=== PATIENT | female | born 1935 | race Caucasian/White ===

== ENCOUNTER 2019-09-18 08:28 | Inpatient (IN) | payer MEDICARE ==
[~2019-09-18] VITALS: Ht 160 cm; Wt 86.2 kg
[2019-09-18] VITALS (11 sets, daily range): BP systolic 99–186; BP diastolic 46–105
[~2019-09-18 08:28] MED LIST: CHOLESTEROL PILL; IBUP-15; LISI1TAB32 PO; LISINOPRIL; LOVA20TA2 PO; LRT10T
[2019-09-18] MEDS ORDERED: RX-ALBUTEROL INHALER (VENTOLIN HFA) 18 GM IH STA (08:54)
[2019-09-18] MEDS ORDERED: RX-ALBUTEROL INHALER 8 GM HFA (VENTOLIN) IH ONE (08:57)
[2019-09-18 09:22] LABS: BASOPHILS % (AUTO) 0 % (0-10); EOSINOPHILS % (AUTO) 0 % (0-10); HEMATOCRIT 40 % (35-52); HEMOGLOBIN 12.6 G/DL (11.5-16.0); LYMPHOCYTES # (AUTO) 1.2 X 10^3 (1.0-4.0); LYMPHOCYTES % (AUTO) 17 % (12-44); MEAN CORPUSCULAR HEMOGLOBIN 29 PG (25-34); MEAN CORPUSCULAR HGB CONC 32 G/DL (32-36); MEAN CORPUSCULAR VOLUME 91 FL (80-99); MEAN PLATELET VOLUME 9.6 FL (7.4-10.4); MONOCYTES # (AUTO) 0.4 X 10^3 (0.0-1.0); MONOCYTES % (AUTO) 6 % (0-12); NEUTROPHILS # (AUTO) 5.4 X 10^3 (1.8-7.8); NEUTROPHILS % (AUTO) 76 % (42-75); PLATELET COUNT 274 10^3/uL (130-400)
--- NOTE | 2019-09-18 09:29 | Diagnostic Imaging Report ---
INDICATION: Weakness and shortness of air. TIME OF EXAM: 9:26 AM Correlation is made with prior chest 03/13/2010. The heart is enlarged. There are changes of median sternotomy and CABG. Central vascularity is prominent. Interstitial markings are prominent consistent with congestive failure. No significant effusion is seen. There is no pneumothorax. There are some patchy infiltrates in the lung bases. IMPRESSION: Findings most suggestive of congestive failure. Dictated by: Dictated on workstation # [id number]
[2019-09-18] MEDS ORDERED: LORazepam INJ 2 MG/ML (ATIVAN) VIAL ONE (09:34)
[2019-09-18 09:37] LABS: FIBRIN DEGRADATION PRODUCTS 0.99 UG/ML (0.00-0.49); INR 1.1 (0.8-1.4); PROTHROMBIN TIME PATIENT 14.7 SEC (12.2-14.7)
[2019-09-18 09:38] LABS: ALBUMIN 3.8 GM/DL (3.2-4.5); POTASSIUM 4.2 MMOL/L (3.6-5.0)
[2019-09-18 09:39] LABS: CALCIUM 8.7 MG/DL (8.5-10.1)
[2019-09-18 09:40] LABS: TOTAL PROTEIN 6.9 GM/DL (6.4-8.2)
[2019-09-18 09:42] LABS: BILIRUBIN,TOTAL 0.4 MG/DL (0.1-1.0)
[2019-09-18 09:42] LABS: BILIRUBIN,URINE NEGATIVE (NEGATIVE); CLARITY,URINE CLEAR; COLOR,URINE YELLOW; GLUCOSE, URINE (UA) NEGATIVE (NEGATIVE); KETONES,URINE NEGATIVE (NEGATIVE); LEUKOCYTE ESTERASE ,URINE NEGATIVE (NEGATIVE); NITRITE,URINE NEGATIVE (NEGATIVE); PROTEIN,URINE 1+ (NEGATIVE)
[2019-09-18 09:43] LABS: ERYTHROCYTE SEDIMENTATION RATE 23 MM/HR (0-30)
--- NOTE | 2019-09-18 09:43 | ED General ---
General Stated Complaint: SOB WEAKNESS Source of Information: Patient Exam Limitations: No Limitations History of Present Illness Date Seen by Provider: Sep 18, 2019 Time Seen by Provider: 08:40 Initial Comments Here with report of shortness of breath, headache, body aches, stomach upset and weakness. Onset earlier this week, a few days after she had gone to [place] to eat dinner. Has had a tickle in her throat as well. Denies fevers. Arrives significantly dyspneic. Arrives via EMS with COVID-19 concerns secondary to respiratory distress. Patient denies vomiting or diarrhea. Denies dysuria. Timing/Duration: 2-3 Days, Getting Worse Severity: Moderate, Severe Associated Systoms: No Chest Pain; Cough; No Fever/Chills; Headaches, Malaise, Shortness of Air, Weakness Allergies and Home Medications Allergies Coded Allergies: Penicillins (Unverified Allergy, Mild, 12/18/08) Home Medications Lisinopril/Hydrochlorothiazide 1 Each Tablet, 1 TAB PO DAILY, (Reported) Lovastatin 20 Mg Tablet, 1 TAB PO HS, (Reported) Patient Home Medication List Home Medication List Reviewed: Yes Review of Systems Review of Systems Constitutional: see HPI; No chills, No fever; malaise, weakness EENTM: nose congestion, throat pain Respiratory: cough, short of breath Cardiovascular: No chest pain; edema; No palpitations Gastrointestinal: see HPI Genitourinary: no symptoms reported Musculoskeletal: muscle pain Skin: no symptoms reported Psychiatric/Neurological: No Symptoms Reported All Other Systems Reviewed Negative Unless Noted: Yes Past Ituvhts-Yzwfyg-Bsqbyn Hx Past Med/Social Hx: Reviewed Nursing Past Med/Soc Hx Patient Social History Alcohol Use: Denies Use Recreational Drug Use: No Smoking Status: Never a Smoker Past Medical History Surgeries: Yes CABG, Hysterectomy Respiratory: No Cardiac: Yes Coronary Artery Disease, Hypertension Neurological: No Reproductive Disorders: No Genitourinary: No Gastrointestinal: No Musculoskeletal: No Endocrine: No Cancer: Yes Ovarian Family Medical History Reviewed Nursing Family Hx No Pertinent Family Hx Physical Exam-Suspected Sepsis Physical Exam Vital Signs Vital Signs - First Documented 09/18/19 08:32 Temp 36.6 Pulse 88 Resp 14 B/P (MAP) 186/78 (114) Pulse Ox 94 O2 Delivery Nasal Cannula O2 Flow Rate 4.00 Capillary Refill : Height, Weight, BMI Height: '" Weight: lbs. oz. kg; BMI Method: General Appearance: WD/WN, Moderate Distress HEENT: PERRL/EOMI, Pharynx Normal Neck: Non Tender, Supple Respiratory: Crackles (Bilateral to mid lungs do) Cardiovascular: No Murmur, Tachycardia Gastrointestinal: Non Tender, Soft Back: Normal Inspection, No CVA Tenderness, No Vertebral Tenderness Extremity: Normal Range of Motion, Non Tender, Pedal Edema (3+ to level of knee bilateral) Neurologic/Psychiatric: Alert, Oriented x3 Skin: normal color, warm/dry Focused Exam Lactate Level 09/18/19 09:08: Lactic Acid Level 0.81 Lactic Acid Level Laboratory Tests Test 09/18/19 09:08 Lactic Acid Level 0.81 MMOL/L (0.50-2.00) Progress/Results/Core Measures Suspected Sepsis SIRS Temperature: Pulse: Respiratory Rate: Laboratory Tests 09/18/19 09:08: White Blood Count 7.0 Blood Pressure / Mean: 09/18/19 09:08: Lactic Acid Level 0.81 Laboratory Tests 09/18/19 09:08: Creatinine 1.07, INR Comment 1.1, Platelet Count 274, Total Bilirubin 0.4 Results/Orders Lab Results Laboratory Tests Test 09/18/19 09:08 09/18/19 09:24 Range/Units White Blood Count 7.0 4.3-11.0 10^3/uL Red Blood Count 4.36 4.35-5.85 10^6/uL Hemoglobin 12.6 11.5-16.0 G/DL Hematocrit 40 35-52 % Mean Corpuscular Volume 91 80-99 FL Mean Corpuscular Hemoglobin 29 25-34 PG Mean Corpuscular Hemoglobin Concent 32 32-36 G/DL Red Cell Distribution Width 14.0 10.0-14.5 % Platelet Count 274 130-400 10^3/uL Mean Platelet Volume 9.6 7.4-10.4 FL Neutrophils (%) (Auto) 76 H 42-75 % Lymphocytes (%) (Auto) 17 12-44 % Monocytes (%) (Auto) 6 0-12 % Eosinophils (%) (Auto) 0 0-10 % Basophils (%) (Auto) 0 0-10 % Neutrophils # (Auto) 5.4 1.8-7.8 X 10^3 Lymphocytes # (Auto) 1.2 1.0-4.0 X 10^3 Monocytes # (Auto) 0.4 0.0-1.0 X 10^3 Eosinophils # (Auto) 0.0 0.0-0.3 10^3/uL Basophils # (Auto) 0.0 0.0-0.1 10^3/uL Erythrocyte Sedimentation Rate 23 0-30 MM/HR Prothrombin Time 14.7 12.2-14.7 SEC INR Comment 1.1 0.8-1.4 Activated Partial Thromboplast Time 34 24-35 SEC D-Dimer 0.99 H 0.00-0.49 UG/ML Sodium Level 143 135-145 MMOL/L Potassium Level 4.2 3.6-5.0 MMOL/L Chloride Level 107 98-107 MMOL/L Carbon Dioxide Level 26 21-32 MMOL/L Anion Gap 10 5-14 MMOL/L Blood Urea Nitrogen 30 H 7-18 MG/DL Creatinine 1.07 0.60-1.30 MG/DL Estimat Glomerular Filtration Rate 49 BUN/Creatinine Ratio 28 Glucose Level 174 H 70-105 MG/DL Lactic Acid Level 0.81 0.50-2.00 MMOL/L Calcium Level 8.7 8.5-10.1 MG/DL Corrected Calcium 8.9 8.5-10.1 MG/DL Total Bilirubin 0.4 0.1-1.0 MG/DL Aspartate Amino Transf (AST/SGOT) 16 5-34 U/L Alanine Aminotransferase (ALT/SGPT) 16 0-55 U/L Alkaline Phosphatase 54 40-136 U/L Lactate Dehydrogenase 176 125-220 U/L Troponin I 0.038 H <0.028 NG/ML C-Reactive Protein High Sensitivity 0.97 H 0.00-0.50 MG/DL B-Type Natriuretic Peptide 691.2 H <100.0 PG/ML Total Protein 6.9 6.4-8.2 GM/DL Albumin 3.8 3.2-4.5 GM/DL Procalcitonin 0.04 <0.10 NG/ML Urine Color YELLOW Urine Clarity CLEAR Urine pH 5.0 5-9 Urine Specific [place] 1.025 H 1.016-1.022 Urine Protein 1+ H NEGATIVE Urine Glucose (UA) NEGATIVE NEGATIVE Urine Ketones NEGATIVE NEGATIVE Urine Nitrite NEGATIVE NEGATIVE Urine Bilirubin NEGATIVE NEGATIVE Urine Urobilinogen 0.2 < = 1.0 MG/DL Urine Leukocyte Esterase NEGATIVE NEGATIVE Urine RBC (Auto) NEGATIVE NEGATIVE Urine RBC 2-5 H /HPF Urine WBC RARE /HPF Urine Squamous Epithelial Cells 2-5 /HPF Urine Crystals NONE /LPF Urine Bacteria FEW H /HPF Urine Casts NONE /LPF Urine Mucus NEGATIVE /LPF Urine Culture Indicated CULTURE PENDING My Orders Orders - GT COMBS MD Cbc With Automated Diff (09/18/19 08:54) Comprehensive Metabolic Panel (09/18/19 08:54) Blood Culture (09/18/19 08:54) Sputum Culture (09/18/19 08:54) Urinalysis (09/18/19 08:54) Urine Culture (09/18/19 08:54) Protime With Inr (09/18/19 08:54) Partial Thromboplastin Time (09/18/19 08:54) Chest 1 View, Ap/Pa Only (09/18/19 08:54) Ed Iv/Invasive Line Start (09/18/19 08:54) Ekg Tracing (09/18/19 08:54) Troponin I (09/18/19 08:54) Vital Signs Adult Sepsis Patie Q15M (09/18/19 08:54) O2 (09/18/19 08:54) Remove Rings In Anticipation O (09/18/19 08:54) Lactic Acid Analyzer (09/18/19 08:54) Fibrin Degradation Products (09/18/19 08:54) Procalcitonin (Pct) (09/18/19 08:54) Hs C Reactive Protein (09/18/19 08:54) Erythrocyte Sedimentation Rate (09/18/19 08:54) LDH (09/18/19 08:54) Coronavirus Sars-Cov-2 So 2018 (09/18/19 08:54) Rx-Albuterol Inhaler (Rx-Ventolin Hfa) (09/18/19 08:54) Rx-Albuterol Inhaler (Rx-Ventolin Hfa In (09/18/19 08:57) Lorazepam Injection (Ativan Injection) (09/18/19 09:45) Lorazepam Injection (Ativan Injection) (09/18/19 09:34) BNP (09/18/19 09:38) Catheter(Urinary) Insert & Ass 03,15 (09/18/19 09:38) Furosemide Injection (Lasix Injection) (09/18/19 09:45) Medications Given in ED Current Medications Medications Dose Ordered Sig/Nancie Route Start Time Stop Time Status Last Admin Dose Admin Furosemide 40 mg ONCE ONCE IVP 09/18/19 09:45 09/18/19 09:46 DC 09/18/19 10:20 40 MG Lorazepam 0.5 mg ONCE ONCE IVP 09/18/19 09:45 09/18/19 09:46 DC 09/18/19 09:39 0.5 MG Vital Signs/I&O 09/18/19 09/18/19 08:32 10:34 Temp 36.6 Pulse 88 83 Resp 14 16 B/P (MAP) 186/78 (114) 129/59 (82) Pulse Ox 94 100 O2 Delivery Nasal Cannula NIV Bilevel O2 Flow Rate 4.00 Capillary Refill : Progress Note : Progress Note Seen and evaluated. IV, labs, EKG and chest x-ray ordered. Cultures and lactic acid ordered. COVID-19 screening swab ordered. Patient placed on oxygen. She is not normally on oxygen but O2 sats were in the 70s and 80s. Increased to 5 L via nasal cannula. Monitor patient. 0940: Patient having worsening shortness of breath. Ultimately we initiated BiPAP with exhale circuit filter. Initiated at 12/6 and 100% due to significant shortness of breath. Ativan 0.5 mg IV initiated due to anxiety secondary to BiPAP. We will initiate Renae catheter due to immobility and in extremis. Patient will get Lasix 40 mg IV for what appears to be significant heart failure. Monitor patient. 1100: Patient is doing much better now after initiation of BiPAP. We have titrated FiO2 down to 50% to maintain sats greater than 92% and she is much less dyspneic. I have discussed the case with Dr. Martinez and she accepts patient for admission, inpatient s marquis. I consulted Dr. Parra and he will see the patient in consult and agrees with plan. Patient agrees with admission. She requests full CODE STATUS at this point unless it's not to do any good. We will put her as full code. Diagnostic Imaging Diagonstic Imaging: Xray Plain Films/CT/US/NM/MRI: chest Comments [facility]. [place], [place] NAME: BEV RODRIGUEZ [facility] REC#: [id number] PT STATUS: REG ER : 1935 PHYSICIAN: GT COMBS MD ADMIT DATE: 09/18/19/ER Draft Date of Exam:09/18/19 CHEST 1 VIEW, AP/PA ONLY INDICATION: Weakness and shortness of air. TIME OF EXAM: 9:26 AM Correlation is made with prior chest 03/13/2010. The heart is enlarged. There are changes of median sternotomy and CABG. Central vascularity is prominent. Interstitial markings are prominent consistent with congestive failure. No significant effusion is seen. There is no pneumothorax. There are some patchy infiltrates in the lung bases. IMPRESSION: Findings most suggestive of congestive failure. Dictated on workstation # [id number] Dict: 09/18/19926 Trans: 09/18/19928 CVB [id number] Interpreted by: ALEM CARNES MD Electronically signed by: Reviewed: Reviewed by Me Departure Communication (Admissions) Time/Spoke to Admitting Phy: 10:55 Time/Spoke to Consulting Phy: 11:00 Impression Primary Impression: Acute heart failure Qualified Codes: I50.9 - Heart failure, unspecified Additional Impression: COVID-19 evaluation Disposition: ADMITTED INPATIENT Condition: Stable Admissions Decision to Admit Reason: Admit from ER (General) Decision to Admit/Date: Sep 18, 2019 Time/Decision to Admit Time: 10:55 Departure-Patient Inst. Referrals: KEILA MARTINEZ DO (PCP/Family) Primary Care Physician GT COMBS MD Sep 18, 2019 09:43
[2019-09-18 09:44] LABS: CREATININE SERUM 1.07 MG/DL (0.60-1.30)
[2019-09-18] MEDS ORDERED: FUROSEMIDE 40 MG/4 ML INJ (LASIX) IVP ONE (09:45)
[2019-09-18] MEDS ORDERED: LORazepam INJ 2 MG/ML (ATIVAN) VIAL IVP ONE (09:45)
[2019-09-18 09:49] LABS: BACTERIA,URINE FEW /HPF; WBC,URINE RARE /HPF
--- NOTE | 2019-09-18 10:15 | NUR ---
Spoke with pts daughter in law. Updates given and questions answered. Rn will call daughter in law back with a room number. Visistation policy regarding PUI's was explained to daughter in law.
--- NOTE | 2019-09-18 11:07 | NUR ---
Spoke with pts son, update given and questions answered about admission. Phone number to the icu given at this time.
--- NOTE | 2019-09-18 11:35 | NUR ---
BEV RODRIGUEZ admitted to room CU5-1, with an admitting diagnosis of HEART FAILURE AND R/O COVID 19, on 09/18/19 from ER via CART, accompanied by STAFF.BEV RODRIGUEZ introduced to surroundings, call light, bed controls, phone, TV, temperature control, lights, meal times, smoking policy, visitor policy, side rail policy, bathrooms and showers. Patient Rights given to patient in the handbook. BEV RODRIGUEZ verbalizes understanding that [facility] is not responsible for the loss or damage to any personal effects or valuables that are kept in the patients posession during their hospitalization. The following Patient Care Plans were discussed with the PT: Discharge Planning, IMPAIRED GAS EXCHANGE,ACTIVITY INTOLERANCE, and FLUID VOLUME EXCESS. BEV RODRIGUEZ verbalizes understanding of Interdisciplinary Patient Education. Patient and family were informed about the Rapid Response Team and its purpose.
[2019-09-18 11:59] LABS: ABG BASE EXCESS 3.2 MMOL/L (-2.5-2.5); ABG OXYGEN SATURATION 98 % (94-100); ABG PCO2 50 MMHG (35-45); ABG PH 7.37 (7.37-7.43); ABG PO2 88 MMHG (79-93); ALLENS TEST POSITIVE; INSPIRED O2 50% BIPAP; PATIENT TEMP 36; VENTILATOR NO
--- OUTSIDE RECORDS SUMMARY | 2019-09-18 12:39 | XMS REPORT | Clinical Summary ---
Author Author UserLisseth Organization [facility] Address Unknown Phone Unavailable Allergies, Adverse Reactions, Alerts Allergy Name Reaction Description Start Date Severity Status Pr ovider PENICILLIN Respiratory problems, e.g., wheezing Critical Active Telma Yung Conditions or Problems Problem Name Problem Code Onset Date Status Entry Date Provider Comment Standard Description Annotate UPPER RESPIRATORY INFECTION (URI) 465.9 Resolved 20 06/09/14 Telma Yung Acute upper respiratory infections of un specified site HYPERTENSION, BENIGN ESSENTIAL, UNCONTROLLED 401.1 Ac tive Telma Yung Benign essential hypertension OBESITY 278.00 Resolved Telma Yung Obesity, unspecified SKIN TAG 701.9 Resolved Telma uYng Unspecified hypertrophic and atrophic conditions of skin Right face, L subclavian area POSTMENOPAUSAL STATUS 627.2 Active Telma lozano Symptomatic menopausal or female climacteric states ACTINIC KERATOSIS, 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.3 Resolved Telma Yung Personal history of diseases of skin and subcutaneous tissue per old chart OSTEOARTHRITIS 715.90 Active Telma Yung Osteoarthrosis, unspecified whether generalized or localized, involving unspecified site Per old chart, b/l knees SKIN LESION, BENIGN 709.9 Resolved Telma Yung Unspecified disorder of skin and subcutaneous tissue DIZZINESS 780.4 Resolved Telma Yung Dizziness and giddiness HEMORRHOIDS 455.6 Resolved Telma Yung Unspecified hemorrhoids without mention of complication BACK PAIN 724.5 Resolved Telma Yung Backache, unspecified HIP PAIN 719.45 Resolved Telma Yung Pain in joint involving pelvic region and thigh left 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 M arthur Yung 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 HYPERCHOLESTEROLEMIA 272.0 Active Telma Yung Pure hypercholesterolemia SNORING 786.09 Resolved Telma Yung Other dyspnea and respiratory abnormality DYSURIA 788.1 Resolved Telma Yung Dysuria URINARY FREQUENCY 788.41 Resolved Telma yoster Urinary frequency CHEST PAIN 786.50 Resolved Telma Yung Unspecified chest pain CONTUSION, LEFT CHEST WALL 922.1 Resolved 8 Telma Yung Contusion of chest wall BRONCHITIS 490 Resolved Telma Yung Bronchitis, not specified as acute or chronic WHEEZING 786.07 Resolved Telma Yung Wheezing COUGH 786.2 Resolved Telma Yung Cough DERMATITIS, SCALP 692.9 Resolved Telma lozano Contact dermatitis and other eczema, unspecified cause PHARYNGITIS, ACUTE 462 Resolved Telma Yung Acute pharyngitis LYMPHADENOPATHY, REACTIVE 785.6 Resolved Telma Yung Enlargement of lymph nodes TONGUE DISORDER 529.9 Resolved Telma cornelius Unspecified condition of the tongue PHARYNGITIS, ACUTE 462 Resolved Telma uYng Acute pharyngitis HEADACHE 784.0 Resolved Telma Yung Headache DIZZINESS, CHRONIC 780.4 Resolved Telma Yung Dizziness and giddiness WEIGHT GAIN, ABNORMAL 783.1 Resolved Telma Yung Abnormal weight gain TORTICOLLIS 723.5 Resolved Telma Yung Torticollis, unspecified EDEMA LEG 782.3 Active Telma Yung Edema MUSCLE PAIN 729.1 Resolved Telma Yung Myalgia and myositis, unspecified PHARYNGITIS, ACUTE 462 Resolved Telma Yung Acute pharyngitis BRONCHITIS 490 Resolved Telma Yung Bronchitis, not specified as acute or chronic KNEE PAIN 719.46 Active Telma Yung Pain in joint involving lower leg SINUSITIS, SPHENOIDAL, ACUTE 461.3 Resolved Telma Yung Acute sphenoidal sinusitis DIABETES MELLITUS, NONINSULIN DEPENDENT (NIDDM) 250.02 Active Telma Yung Diabetes mellitus w ithout mention of complication, type II or unspecified type, uncontrolled NEVUS, ATYPICAL 216.9 Resolved Telma cornelius Benign neoplasm of skin, site unspecified ANEMIA NOS 285.9 Resolved Telma Yung Anemia, unspecified CORONARY ARTERY BYPASS GRAFT, THREE VESSEL, HX OF V45.81 2010 Active Telma Yung Postsurgical aortocoronary bypass status CORONARY ATHEROSCLEROSIS, [place] VESSEL 414.01 Active Telma Yung Coronary atherosclerosis of [place] yes[place] nary artery OSTEOPOROSIS 733.00 Resolved Telma Yung Osteoporosis, unspecified OSTEOPOROSIS NEC 733.09 Active Telma cornelius Other osteoporosis HEMATOCHEZIA 578.1 Resolved Telma Yung Blood in stool WEIGHT GAIN, ABNORMAL 783.1 Active Telma Jacob Abnormal weight gain BRONCHITIS, ACUTE 466.0 Active Telma Simpson rner Acute bronchitis Medication List Medication Instructions Start Date Stop Date Generic Name NDC Status Provider Patient Instruction ZOFRAN ODT 8 MG TBDP 1 PO Q6hrs prn nausea ONDA NSETRON 87029423390 No Longer Active Telma Yung ADVAIR DISKUS 100-50 MCG/DOSE MISC 1 puff BID 04/15 FLUTICASONE-SALMETEROL 97526665828 No Longer Active Telma Yung CEFDINIR 300 MG CAPS 1 PO BID CEFDINIR 0648674 0900 No Longer Active Telmahazel Yung METFORMIN HCL 500 MG TABS 1 PO every day METFOR MIN HCL 28679135455 No Longer Active Telmahazel Yung FLAX SEED OIL CAPS 1 PO daily FLAXSEED (LINSEED) CAPS 11 786393138 Active Telmahazel Yung HYDROCODONE-ACETAMINOPHEN 5-325 MG TABS 1 PO TID prn HYDROCODONE-ACETAMINOPHEN 34066112736 Active Telmahazel Yung VITAMIN D3 69284 UNIT CAPS 1 PO every other day CH OLECALCIFEROL 75742799347 Active Telmahazel Yung TOPROL XL 100 MG TAB CR 1/2 PO DAILY TOPROL XL 100 MG TAB CR 82484481816 Active Telmahazel Yung METOPROLOL TARTRATE 25 MG TABS 1/2 PO QAM METOP ROLOL TARTRATE 92616318618 No Longer Active Telma Yung LOVASTATIN 40 MG TABS 2 po daily LOVASTATIN 893162066 06 Active Telmahazel Yung ANUSOL-HC 25 MG SUPPOSITORY 1 MT TID prn HYDROCORTISONE SKYLER (RECTAL) 84060070588 No Longer Active Tlema Yung METAMUCIL POWD 30 minutes before meals PSYLLRANI Berger POWD 81294563811 No Longer Active Telma Yung ASPIRIN 81 MG CHEW TAB 2 PO QD ASPIRIN 68747632856 Activ e Telmahazel Yung ASPIRIN 81 MG TAB 1 PO daily ASPIRIN 21479453754 No L onger Active Telmahazel Yung LIPITOR 40 MG TAB 1 PO Daily ATORVASTATIN CALCIUM 61074233557 No Longer Active Samanta James FENOFIBRATE 54 MG TABS 1 PO DAILY FENOFIBRATE 1560919 1110 Active Telmahazel Yung FISH OIL 1000 MG CAPS 1 PO daily OMEGA-3 FATTY ACIDS 743 41218718 Active Telmahazel Yung LOVASTATIN 20 MG TABS 3 PO daily for cholesterol L OVASTATIN 98248081190 No Longer Active Telmahazel Yung AMBIEN 5 MG TAB 1 PO QHS ZOLPIDEM TARTRATE 8366669227 4 Active Telmahazel Yung ZOFRAN ODT 8 MG TBDP 1 PO Q6hrs prn ONDANSETRON 74343054863 No Longer Active Emmanuel Vidal LASIX 20 MG TAB 1 PO QD FUROSEMIDE 54429150115 Active Telmahazel Yung RETIN-A 0.025 % CREA Apply to facial lesions daily 201 03/11/26 TRETINOIN 96062311728 No Longer Active Telmahazel Yung LASIX 20 MG TAB 1 PO prn foot swelling FUROSEM ROSENDO 45525282950 No Longer Active Telma Yung KLOR-CON M20 CR-TABS 1 PO daily POTASS IUM CHLORIDE MIGUEL CR CR-TABS 41515553141 Active Telmahazel Yung LORAZEPAM 0.5 MG TAB 1 PO QID prn LORAZEPAM 33081019101 Active Samanta James NETTI-POT rinse nasal pasageways daily after sinus infecti on treated NETTI-POT No Longer Active Telma Yung MOBIC 15 MG TABS 1 PO daily MELOXICAM 1368844590 0 No Longer Active Telma Yung CLARITIN 10 MG TAB 1 PO daily LORATADINE 39601539644 Active Telmahazel Yung RENOVA 0.02 % CREA Apply to facial lesions daily prn TRETINOIN (FACIAL WRINKLES) 31733643245 No Longer Active Telma Yung CIPRO 250 MG TABS 1 PO BID CIPROFLOXACIN HCL 66 357639453 No Longer Active Telma SERRA'Karl NASAL SPRAY (DEXAMETHASONE, GENTAMICIN, SA LINE) 2 puffs each nostril TID for [address] RAMÍREZ NASAL SP RAY (DEXAMETHASONE, GENTAMICIN, SALINE) No Longer Active Telma Yung AFRIN NASAL SPRAY 0.05 % SOLN as directed for 2 days only 6 OXYMETAZOLINE HCL 20673897147 No Longer Active Telma Yung LOTREL 5-10 MG CAPS 1 PO daily for BP AML ODIPINE BESY-BENAZEPRIL HCL 03360082257 No Longer Active Telma Yung CHLORPHENIRAMINE MALEATE 4 MG TABS 1 PO Q6hrs prn for cold 03/17 CHLORPHENIRAMINE MALEATE 36346216199 No Longer Active Telma RAMÍREZ NASAL SPRAY (DEXAMETHASONE, GENTAMICIN, SA LINE) 2 puffs each nostril TID for [address] RAMÍREZ NASAL SP RAY (DEXAMETHASONE, GENTAMICIN, SALINE) No Longer Active Telma Yung LEVAQUIN 500 MG TAB 1 PO QD LEVOFLOXACIN 43650 186549 No Longer Active Telma Yung FLEXERIL 10 MG TAB 1 PO QHS CYCLOBENZAPRINE H CL 12501852867 No Longer Active Telma Shonda Yung PREDNISONE 20 MG TAB 2 pills at once for 3 days then 1 pill daily for 3 days PREDNISONE 43199742039 No Longer Active Telma Dalia Yung MUCINEX 600 MG TB12 1 PO BID for 5 days GUAIFEN ESIN 19445260313 No Longer Active Telma Shonda Yung PREDNISONE 20 MG TAB 2 PO daily for 4 days PRED NISONE 93315213328 No Longer Active Telma Shonda Yung LEVAQUIN 500 MG TABS 1 PO daily for 7 days LEVO FLOXACIN 16084982383 No Longer Active Telma Shonda Yung PREDNISONE 20 MG TAB 1 Po daily for 4 days PRED NISONE 98838579163 No Longer Active Telma Shonda Yung BACTRIM DS 800-160 MG TAB 1 PO BID for 7 days TRIMETHOPRIM-SULFAMETHOXAZOLE 91390382954 No Longer Active Telma Shonda cornelius LISINOPRIL-HYDROCHLOROTHIAZIDE 20-25 MG TABS 1 PO daily 0 LISINOPRIL-HYDROCHLOROTHIAZIDE 71178868045 Active Telmahazel cornelius RENOVA 0.05 % CREA apply to affected areas prn TRETINOIN (FACIAL WRINKLES) 05524391602 No Longer Active Telmahazel Yung VALIUM 2 MG TABS 1/2 to 1 PO Q6hrs prn DIAZEPAM 79920372404 No Longer Active Telmahazel Yung QUININE SULFATE 325 MG CAPS 1 PO QHS prn leg cramps 09/14/03 QUININE SULFATE 69638330409 No Longer Active Telma Shonda Yung LORTAB 5 5-500 MG TABS 1 to 2 PO Q6hrs prn tooth pain ACETAMINOPHEN-HYDROCODONE 79556410286 No Longer Active Telma Shonda Yung LORTAB 5 5-500 MG TABS 1 to 2 PO Q6hrs prn ACETAMINOPHEN-HYDROCODONE 12226613972 No Longer Active Telma Shonda Yung ANAYELI 180 MG TABS 1 PO QD FEXOFENADINE HCL 5 4256536228 No Longer Active Telma Shonda Yung RONDEC DM 12.5-4-15 MG/5ML SYRP 5 cc PO QID prn 05/05 [id number] 05751662440 No Longer Active Z Z RENOVA 0.05 % CREA apply to affected areas TRETINOIN (FACIAL WRINKLES) 43813467456 No Longer Active Telma Shonda Yung ZITHROMAX Z-IMELDA 250 MG TABS as directed AZITHRO MYCIN 27735009073 No Longer Active Samanta James SALICYLIC ACID POWD use as directed SALICYLIC A HARIS 07680672534 No Longer Active Telma Shonda Yung XENICAL 120 MG CAPS 1 po BID ORLISTAT 01266528 201 No Longer Active Telma Shonda Yung GLUCOSAMINE MSM COMPLEX TABS 1 PO BID prn [id number] 93281929312 No Longer Active Telma Shonda cornelius CRESTOR 5 MG TABS Take 1/2 pill of the 10mg tab daily, hol d while on Biaxin ROSUVASTATIN CALCIUM 89412975758 No Longer Active Min di Shonda Yung ZITHROMAX Z-IMELDA 250 MG TABS as directed AZITHRO MYCIN 33809723479 No Longer Active Telma Shonda Yung ZITHROMAX Z-IMELDA 250 MG TABS as directed AZITHRO MYCIN 90678181525 No Longer Active Telma Shonda Yugn LIDEX 0.05 % CREA apply to aa BID FLUOCINONIDE 60365768643 No Longer Active Telma Shonda Aga BIAXIN XL IMELDA 500 MG TB24 2 PO QAM CLARITHROM YCIN 88262380966 No Longer Active Telma Shonda Aga CLARINEX 5 MG TABS 1 po daily DESLORATADINE 43305 943584 No Longer Active Telma Shonda Yung VIVACTIL 5 MG TABS 1 pO QHS for snoring PROTRIP TYLINE HCL 10699445021 No Longer Active Telma Shonda Aga BENTYL 10 MG CAPS 1 po tid DICYCLOMINE HCL 0006 5979357 No Longer Active Telma Shonda Yung CALCIUM 1500 MG TAB CALCIUM CARBONATE 40324998777 No Longer Active Telma Shonda Yung SOY 40 MG TABS SOY ISOFLAVONE 21811058 108 No Longer Active Telma Shonda Yung FISH OIL 1000 MG CAPS OMEGA-3 FATTY AC IDS 44002635813 No Longer Active Telma Shonda Yung ANUSOL-HC 25 MG SUPP bid prn HYDROCORTISONE ACETATE 75296531355 No Longer Active Telma Shonda Yung GARLIC 500 MG TABS 1 PO BID GARLIC 331300368 78 No Longer Active Telma Shonda Yung PREDNISONE 20 MG TABS 3 po today and 3 po tomorrow 200 07/09/17 PREDNISONE 93974373328 No Longer Active Telma Shonda Yung LORTAB 5 5-500 MG TABS 1-2 po q 4-6 hrs. prn pain 2004 HYDROCODONE-ACETAMINOPHEN 17843959103 No Longer Active Telma Shonda Yung NORVASC 5 MG TABS 1 po qd AMLODIPINE BESYLATE 1512600652 0 No Longer Active John Roque CLARINEX 5 MG TABS DESLORATADINE 77129 947475 No Longer Active Telma Sohnda Yung PYRIDIUM 100 MG TAB 1 PO BID for 2 days only 1 PHENAZOPYRIDINE HCL 79192982788 No Longer Active Telma Shonda Yung PALGIC 4 MG TABS 1 po daily CARBINOXAMINE PEDRO LUIS TE 05187526018 No Longer Active Telma Shonda Yung CIPRO XR 500 MG TB24 1 PO QD for 3 days C IPROFLOX HCL- CIPRO BETAINE 74289091139 No Longer Active Telma Shonda Yung PALGIC 4 MG TABS 1 PO QD CARBINOXAMINE PEDRO LUIS TE 54940647537 No Longer Active Telma Shonda Yung CLARINEX 5 MG TABS 1 PO QD DESLORATADINE 82905 936557 No Longer Active Telma Shonda Yung ZYRTEC 10 MG TAB 1 PO QD CETIRIZINE HCL 232215 04245 No Longer Active Telma Shonda Yung PREDNISONE 20 MG TABS 3 po x today and tomorrow 09/08 PREDNISONE 49163308579 No Longer Active Telma Shonda Yung HYDROCHLOROTHIAZIDE 25 MG TABS 1 po qd when b/r unavailable 2003 HYDROCHLOROTHIAZIDE 24033649254 No Longer Active Telma Dalia Yung COZAAR 100 MG TABS 1 po qd when b/r unavailable 08/22 [place] POTASSIUM 87827462403 No Longer Active Telma Shonda Yung DARVOCET-N 100 100-650 MG TAB PROPOX YPHENE N-APAP 40533698527 No Longer Active Telma Shonda Yung LORTAB 5 5-500 MG TABS 1 to 2 PO Q6hrs prn ACETAMINOPHEN-HYDROCODONE 11111010444 No Longer Active Telma Shonda Yung PREDNISONE 20 MG TAB 3 PO Qd for 2 days PREDNIS ONE 19912813517 No Longer Active Telma Yung NORVASC 5 MG TABS 1 po daily (28samples) AMLODIPINE BESYLATE 64242914637 No Longer Active Telma Shonda Yung CLARINEX 5 MG TABS 1 po daily(28samples) DESLORAT ADINE 56023707041 No Longer Active Telma Yung HYZAAR 25-100 MG TAB 1 PO QD [place] POTASSIUM -HCTZ 68143339485 No Longer Active Samanta [place] Vital Signs Date Name Value Unit Range Description blood pressure, diastolic - 8462-4 86 mm[Hg] BP bermeo blood pressure, systolic - 8480-6 162 mm[Hg] BP sys pulse rate E&M - 8867-4 72 /min H eart rate respiratory rate E&M - 9279-1 14 /min Resp rate weight E&M - 3141-9 175 [lb_av] Weigh t Measured blood pressure, diastolic - 8462-4 70 mm[Hg] BP bermeo blood pressure, systolic - 8480-6 139 mm[Hg] BP sys pulse rate E&M - 8867-4 76 /min H eart rate respiratory rate E&M - 9279-1 14 /min Resp rate temperature E&M 98.7 [degF] Body temp erature blood pressure, diastolic - 8462-4 70 mm[Hg] BP bermeo blood pressure, systolic - 8480-6 130 mm[Hg] BP sys pulse rate E&M - 8867-4 68 /min H eart rate respiratory rate E&M - 9279-1 14 /min Resp rate temperature E&M 98.6 [degF] Body temp erature blood pressure, diastolic - 8462-4 63 mm[Hg] BP bermeo blood pressure, systolic - 8480-6 122 mm[Hg] BP sys pulse rate E&M - 8867-4 76 /min H eart rate respiratory rate E&M - 9279-1 14 /min Resp rate temperature E&M 98.6 [degF] Body temp erature weight E&M - 3141-9 175 [lb_av] Weigh t Measured blood pressure, diastolic - 8462-4 90 mm[Hg] BP bermeo blood pressure, systolic - 8480-6 160 mm[Hg] BP sys pulse rate E&M - 8867-4 64 /min H eart rate respiratory rate E&M - 9279-1 14 /min Resp rate weight E&M - 3141-9 180 [lb_av] Weigh t Measured Diagnostic Results Date Name Value Unit Range Description Clinical Lists Update: CBC,CMP,FLP,HgA1c - Chemistry Estimated Glomerular Filtration Rate (calc) 72 mL/ min/1.73m2 glucose, plasma fasting 110 mg/dL albumin, serum 4.1 g/dL alkaline phosphatase, serum 48 U/L urea nitrogen, blood 27 mg/dL calcium, serum 9.2 mg/dL chloride, serum 103 mmol/L cholesterol, serum 164 mg/dL cholesterol/HDL ratio, serum, percent 3.3 anion gap, serum 7 sodium, serum 140 mmol/L triglyceride, serum, fasting 159 mg/dL bilirubin, serum, total 0.6 mg/dL alanine aminotransferase (SGPT), serum 13 U/L aspartate aminotransferase (SGOT), serum 13 U/L protein, total, serum 6.8 g/dL potassium, serum 4.2 mmol/L LDL cholesterol, serum 83 mg/dL hemoglobin A1C, blood, as % of total hemoglobin 6.2 % HDL cholesterol, serum 49.0 mg/dL creatinine, serum 0.8 mg/dL carbon dioxide, venous blood 34.0 mmol/L Clinical Lists Update: CBC,CMP,FLP,HgA1c - Hematology erythrocyte (RBC) count 4.78 10*6/mm3 leukocyte count, blood 4.8 10*3/mm3 mean corpuscular volume, RBC 95 fL red blood cell distribution width 13.3 % hemoglobin, blood 14.2 g/dL platelet count 236 10*3/mm3 hematocrit, blood 46 % Clinical Lists Update: CMP,Chol.Trig,TSH ,HgA1c - Chemistry Estimated Glomerular Filtration Rate (calc) 75 mL/ min/1.73m2 glucose, plasma fasting 144 mg/dL anion gap, serum 11 sodium, serum 140 mmol/L triglyceride, serum, fasting 181 mg/dL bilirubin, serum, total 0.7 mg/dL alanine aminotransferase (SGPT), serum 14 U/L aspartate aminotransferase (SGOT), serum 15 U/L protein, total, serum 6.7 g/dL potassium, serum 4.2 mmol/L thyroid stimulating hormone, serum 1.11 u[iU]/mL hemoglobin A1C, blood, as % of total hemoglobin 6.6 % creatinine, serum 0.8 mg/dL carbon dioxide, venous blood 32.0 mmol/L cholesterol, serum 185 mg/dL chloride, serum 101 mmol/L calcium, serum 9.3 mg/dL urea nitrogen, blood 28 mg/dL alkaline phosphatase, serum 48 U/L albumin, serum 4.0 g/dL Clinical Lists Update: CMP,FLP [facility] - Chemistry sodium, serum 139 mmol/L potassium, serum 4.2 mmol/L protein, total, serum 6.6 g/dL urea nitrogen, blood 42 mg/dL glucose, plasma fasting 119 mg/dL calcium, serum 9.3 mg/dL aspartate aminotransferase (SGOT), serum 14 U/L chloride, serum 103 mmol/L anion gap, serum 13 cholesterol, serum 168 mg/dL alanine aminotransferase (SGPT), serum 13 U/L carbon dioxide, venous blood 13 mmol/L albumin, serum 4.0 g/dL creatinine, serum 0.9 mg/dL bilirubin, serum, total 0.5 mg/dL HDL cholesterol, serum 43.0 mg/dL cholesterol/HDL ratio, serum, percent 3.9 triglyceride, serum, fasting 137 mg/dL LDL cholesterol, serum 98 mg/dL Estimated Glomerular Filtration Rate (calc) 63 mL/ min/1.73m2 alkaline phosphatase, serum 41 U/L Clinical Lists Update: CMP,FLP,HgA1c,[place] roalbumin - Chemistry alkaline phosphatase, serum 49 U/L urea nitrogen, blood 25 mg/dL calcium, serum 9.6 mg/dL chloride, serum 98 mmol/L cholesterol, serum 183 mg/dL carbon dioxide, venous blood 33.0 mmol/L creatinine, serum 1.0 mg/dL HDL cholesterol, serum 52.0 mg/dL hemoglobin A1C, blood, as % of total hemoglobin 6.7 % LDL cholesterol, serum 101 mg/dL potassium, serum 4.2 mmol/L protein, total, serum 6.6 g/dL aspartate aminotransferase (SGOT), serum 17 U/L alanine aminotransferase (SGPT), serum 15 U/L bilirubin, serum, total 0.6 mg/dL triglyceride, serum, fasting 148 mg/dL sodium, serum 136 mmol/L anion gap, serum 9 cholesterol/HDL ratio, serum, percent 3.5 glucose, plasma fasting 129 mg/dL Estimated Glomerular Filtration Rate (calc) 56 mL/ min/1.73m2 albumin, serum 4.0 g/dL Clinical Lists Update: CMP,FLP,HgA1c,[place] roalbumin - Urinalysis microalbumin, urine, semiquantitative 1.0 mg/dL Encounters Code Encounter Date Provider Facility CPT-80657 Ofc Vst, Est Level III 20:00:36 [employer]ATEGY DIRECTOR Telma Karl Yung DO, FACP CPT-29599 Ofc Vst, Est Level III 16:08:14 BUSINESS [employer] STRATEGY DIRECTOR Telmahazel Yung DO, FACP CPT-90059 Ofc Vst, Est Level III 19:59:04 CDT Telma S miya Yung DO, FACP CPT-21226 Ofc Vst, Est Level III 10:08:10 CDT Telma S miya Yung DO, FACP CPT-33276 Ofc Vst, Est Level III 16:26:58 CDT Telma S miya Yung DO, FACP CPT-70734 Ofc Vst, Est Level III 14:34:34 CDT Telma S miya Yung DO, FACP CPT-94908 Ofc Vst, Est Level IV 14:11:18 CDT Telma Yung [facility] CPT-44281 Ofc Vst, Est Level IV 11:04:19 CDT Telmahazel Yung DO, FACP CPT-73063 Ofc Vst, Est Level III 11:34:48 CDT Telma S miya Carrascoi Karl Yung, DO, FACP CPT-34908 Ofc Vst, Est Level III 15:11:55 BUSINESS CONTINUITY STRATEGY DIRECTOR Telma S miya Barajas Yung, DO, FACP CPT-96150 Ofc Vst, Est Level IV 11:27:44 BUSINESS CONTINUITY STRATEGY DIRECTOR Telma Francia Barajas Yung, DO, FACP CPT-41146 Ofc Vst, Est Level IV 11:22:00 CDT Telma Francia Carrascoi Karl Yung, DO, FACP CPT-30025 Ofc Vst, Est Level IV 13:59:55 CDT Telma Francia Carrascoi Karl Yung, DO, FACP CPT-07373 Ofc Vst, Est Level IV 11:50:41 CDT Telma Francia Carrascoi Karl Yung, DO, FACP CPT-53530 Ofc Vst, Est Level IV 14:38:12 BUSINESS CONTINUITY STRATEGY DIRECTOR Telma Francia Barajas Yung, DO, FACP CPT-78508 Ofc Vst, Est Level V 14:16:09 BUSINESS CONTINUITY STRATEGY DIRECTOR Telma Charlesner Telma S Yung, DO, FACP CPT-29483 Ofc Vst, Est Level IV 14:05:44 CDT Telma Francia Barajas Yung, DO, FACP CPT-00345 Ofc Vst, Est Level IV 14:28:47 CDT Telma Francia Carrascoi S Yung, DO, FACP CPT-61807 Ofc Vst, Est Level III 14:56:13 CDT Telma S miya Carrascoi S Yung, DO, FACP CPT-98493 Ofc Vst, Est Level I 11:02:26 CDT Telmahazel Carrascoi S Yung, DO, FACP CPT-43002 Ofc Vst, Est Level IV 14:35:35 BUSINESS CONTINUITY STRATEGY DIRECTOR Telma Francia Charlesner Telma S Yung, DO, FACP CPT-65614 Ofc Vst, Est Level IV 14:43:28 BUSINESS CONTINUITY STRATEGY DIRECTOR Telma Francia Yung Telma S Yung, DO, FACP CPT-25697 Ofc Vst, Est Level IV 11:24:19 CDT Telma Francia Charlesner Telma S Yung, DO, FACP CPT-92682 Ofc Vst, Est Level IV 15:22:26 CDT Telma Francia givens Yung Telma S Yung, DO, FACP CPT-49363 Ofc Vst, Est Level IV 12:15:20 BUSINESS CONTINUITY STRATEGY DIRECTOR Telma Francia givens Yung Telma S Aga, DO, FACP CPT-13718 Ofc Vst, Est Level IV 10:38:00 BUSINESS CONTINUITY STRATEGY DIRECTOR Telma Francia Yung Telma S Yung, DO, FACP CPT-03337 Ofc Vst, Est Level III 15:52:45 CDT Telma S umyrtlee Yung Telma S Yung, DO, FACP CPT-05225 Ofc Vst, Est Level III 11:12:09 BUSINESS CONTINUITY STRATEGY DIRECTOR Telma Karl umyrtlee Yung Telma S Aga, DO, FACP CPT-51915 Ofc Vst, Est Level III 11:46:31 BUSINESS CONTINUITY STRATEGY DIRECTOR Telma Karl daphneye Yung Telma S Aga, DO, FACP CPT-42055 Ofc Vst, Est Level III 14:12:37 CDT Telma S uzanne Aga Telma S Aga, DO, FACP CPT-18939 Ofc Vst, Est Level III 15:12:58 CDT Telma S utosha Yung [facility] [place] CPT-61393 Ofc Vst, Est Level III 14:27:05 CDT Telma S miya Yung [facility] [place] CPT-38564 Ofc Vst, Est Level IV 14:43:20 BUSINESS CONTINUITY STRATEGY DIRECTOR Telmahazel Yung [facility] [place] CPT-33862 Ofc Vst, Est Level IV 14:06:31 CDT Telma Francia Yung [facility] [place] CPT-08037 Ofc Vst, Est Level III 15:27:49 CDT Telma S miya Yung [facility] [place] CPT-94239 Ofc Vst, Est Level III 14:13:28 CDT Telma S miya Yung [facility] [place] CPT-42936 Ofc Vst, Est Level IV 11:54:06 BUSINESS CONTINUITY STRATEGY DIRECTOR Telmahazel Yung [facility] [place] CPT-78753 Ofc Vst, Est Level II 10:32:16 BUSINESS CONTINUITY STRATEGY DIRECTOR Telma Yung [facility] [place] CPT-92043 Ofc Vst, Est Level III 12:06:26 BUSINESS CONTINUITY STRATEGY DIRECTOR Telma Karl Yung [facility] [place] CPT-81039 Ofc Vst, Est Level III 10:15:58 CDT Telma S miya Yung [facility] [place] CPT-02469 Ofc Vst, Est Level IV 19:00:53 CDT Telma Francia Yung [facility] [place] CPT-49473 Ofc Vst, Est Level III 14:55:16 BUSINESS [employer]UITY STRATEGY DIRECTOR Telma Karl Yung [facility] [place] CPT-77669 Ofc Vst, Est Level IV 17:39:50 BUSINESS [employer]INUITY STRATEGY DIRECTOR Telmahazel Yung [facility] [place] CPT-53584 Ofc Vst, Est Level IV 17:56:34 CDT Telma Francia Yung [facility] [place] CPT-12780 Ofc Vst, Est Level III 19:26:05 CDT Telma Karl Charlesner [facility] [place] CPT-85982 Ofc Vst, Est Level III 19:13:03 CDT Telma S miya Yung [facility] [place] CPT-91365 Ofc Vst, Est Level IV 17:45:10 CDT Telmahazel Yung [facility] [place] CPT-51949 Ofc Vst, Est Level III 14:17:48 CDT Telma Karl miya Yung [facility] [place] CPT-23934 Ofc Vst, Est Level III 15:13:37 CDT Telma S miya Yung [facility] [place] CPT-95534 Ofc Vst, Est Level II 16:16:07 BUSINESS CONTINUITY STRATEGY DIRECTOR Telma Yung [facility] [place] CPT-75767 Ofc Vst, New Level IV 10:06:31 BUSINESS CONTINUITY STRATEGY DIRECTOR Telma Yung [facility] [place] Procedures Code Procedure Name Date Entry Date Standard Desc ription CPT-G0439 Medicare Annual Wellness Visit 20:22:32 CDT CPT-G8446 E-Prescribing not done due to controlled substance 13:39:34 BUSINESS CONTINUITY STRATEGY DIRECTOR CPT-G0439 Medicare Annual Wellness Visit 13:39:34 BUSINESS CONTINUITY STRATEGY DIRECTOR CPT-G8446 E-Prescribing not done due to controlled substance 16:26:58 CDT CPT-G8445 E-Prescribing Not sent due to no medicat ion given 14:34:34 CDT CPT-G8445 E-Prescribing Not sent due to no medicat ion given 17: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 CPT-G0438 Medicare Annual Wellness Visit Initial 1 17: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
--- OUTSIDE RECORDS SUMMARY | 2019-09-18 12:40 | XMS REPORT | Clinical Summary ---
Author Author UserLisseth Organization [facility] Address Unknown Phone Unavailable Allergies, Adverse [...] Obesity, unspecified SKIN TAG 701.9 Resolved Telma Yung Unspecified hypertrophic and atrophic conditions of skin [...] the tongue PHARYNGITIS, ACUTE 462 Resolved Telma Yung Acute pharyngitis HEADACHE 784.0 Resolved Telma Yung [...] or chronic KNEE PAIN 719.46 Active Telma uYng Pain in joint involving lower leg SINUSITIS, [...] Yung Postsurgical aortocoronary bypass status CORONARY ATHEROSCLEROSIS, [place] IQUA VESSEL 414.01 Active Telma Yung Coronary atherosclerosis of [place] nary artery OSTEOPOROSIS 733.00 Resolved Telma [...] 1 PO Q6hrs prn nausea ONDA NSETRON 63662486760 No Longer Active Telma Yung ADVAIR DISKUS 100-50 MCG/DOSE MISC 1 puff BID 04/15 FLUTICASONE-SALMETEROL 13409156738 No Longer Active Telma Yung CEFDINIR 300 MG CAPS 1 PO BID CEFDINIR 6033187 0900 No Longer Active Tlemahazel Yung METFORMIN HCL 500 MG TABS 1 PO every day METFOR MIN HCL 17327136463 No Longer Active Telmahazel Yung FLAX SEED OIL CAPS 1 PO daily FLAXSEED (LINSEED) CAPS 11 323723873 Active Telmahazel Yung HYDROCODONE-ACETAMINOPHEN 5-325 MG TABS 1 PO TID prn HYDROCODONE-ACETAMINOPHEN 20190858223 Active Telmahazel Yung VITAMIN D3 97484 UNIT CAPS 1 PO every other day CH OLECALCIFEROL 65370661119 Active Telmahazel Yung TOPROL XL 100 MG TAB CR 1/2 PO DAILY TOPROL XL 100 MG TAB CR 27475167827 Active Telmahazel Yung METOPROLOL TARTRATE 25 MG TABS 1/2 PO QAM METOP ROLOL TARTRATE 59526816401 No Longer Active Telma Yung LOVASTATIN 40 MG TABS 2 po daily LOVASTATIN 999345042 06 Active Telmahazel Yung ANUSOL-HC [address] TID prn HYDROCORTISONE SKYLER (RECTAL) 72621167767 No Longer Active Telma Yung METAMUCIL POWD 30 minutes before meals PSYLLRANI Berger POWD 45218670759 No Longer Active Telma Yung ASPIRIN 81 MG CHEW TAB 2 PO QD ASPIRIN 49030984005 Activ e Telmahazel Yung ASPIRIN 81 MG TAB 1 PO daily ASPIRIN 37149031014 No L onger Active Telmahazel Yung LIPITOR 40 MG TAB 1 PO Daily ATORVASTATIN CALCIUM 85634457314 No Longer Active Samanta James FENOFIBRATE 54 MG TABS 1 PO DAILY FENOFIBRATE 3805670 1110 Active Temlahazel Yung FISH OIL 1000 MG CAPS 1 PO daily OMEGA-3 FATTY ACIDS 743 81304306 Active Telmahazel Yung LOVASTATIN 20 MG TABS 3 PO daily for cholesterol L OVASTATIN 00676314402 No Longer Active Telmahazel Yung AMBIEN 5 MG TAB 1 PO QHS ZOLPIDEM TARTRATE 5479604096 4 Active Telmahazel Yung ZOFRAN ODT 8 MG TBDP 1 PO Q6hrs prn ONDANSETRON 59460689329 No Longer Active Emmanuel Vidal LASIX 20 MG TAB 1 PO QD FUROSEMIDE 57990092948 Active Telmahazel Yung RETIN-A 0.025 % CREA Apply to facial lesions daily 201 03/11/26 TRETINOIN 45219374641 No Longer Active Telmahazel Yung LASIX 20 MG TAB 1 PO prn foot swelling FUROSEM ROSENDO 94639905368 No Longer Active Telma Yung KLOR-CON M20 CR-TABS 1 PO daily POTASS IUM CHLORIDE MIGUEL CR CR-TABS 67455204057 Active Telmahazel Yung LORAZEPAM 0.5 MG TAB 1 PO QID prn LORAZEPAM 06792510654 Active Samanta James NETTI-POT rinse nasal pasageways daily after sinus infecti on treated NETTI-POT No Longer Active Telma Yung MOBIC 15 MG TABS 1 PO daily MELOXICAM 9480069795 0 No Longer Active Telma Yung CLARITIN 10 MG TAB 1 PO daily LORATADINE 22603661662 Active Telmahazel Yung RENOVA 0.02 % CREA Apply to facial lesions daily prn TRETINOIN (FACIAL WRINKLES) 50235116218 No Longer Active Telma Yung CIPRO 250 MG TABS 1 PO BID CIPROFLOXACIN HCL 66 980304215 No Longer Active Telma SERRA'Karl NASAL SPRAY (DEXAMETHASONE, GENTAMICIN, SA LINE) 2 puffs each nostril TID for [address] RAMÍREZ NASAL SP RAY (DEXAMETHASONE, GENTAMICIN, SALINE) No Longer Active Telma Yung AFRIN NASAL SPRAY 0.05 % SOLN as directed for 2 days only 6 OXYMETAZOLINE HCL 23863697092 No Longer Active Telma Yung LOTREL 5-10 MG CAPS 1 PO daily for BP AML ODIPINE BESY-BENAZEPRIL HCL 26689307055 No Longer Active Telma Yung CHLORPHENIRAMINE MALEATE 4 MG TABS 1 PO Q6hrs prn for cold 03/17 CHLORPHENIRAMINE MALEATE 67931256155 No Longer Active Telma RAMÍREZ NASAL SPRAY (DEXAMETHASONE, GENTAMICIN, SA LINE) 2 puffs each nostril TID for [address] RAMÍREZ NASAL SP RAY (DEXAMETHASONE, GENTAMICIN, SALINE) No Longer Active Telma Yung LEVAQUIN 500 MG TAB 1 PO QD LEVOFLOXACIN 65974 223933 No Longer Active Telma Yung FLEXERIL 10 MG TAB 1 PO QHS CYCLOBENZAPRINE H CL 02278777463 No Longer Active Telma Shonda Yung PREDNISONE 20 MG TAB 2 pills at once for 3 days then 1 pill daily for 3 days PREDNISONE 68582004817 No Longer Active Telma Dalia Yung MUCINEX 600 MG TB12 1 PO BID for 5 days GUAIFEN ESIN 16044719739 No Longer Active Telma Shonda Yugn PREDNISONE 20 MG TAB 2 PO daily for 4 days PRED NISONE 70835463559 No Longer Active Telma Shonda Yung LEVAQUIN 500 MG TABS 1 PO daily for 7 days LEVO FLOXACIN 34723869217 No Longer Active Telma Shonda Yung PREDNISONE 20 MG TAB 1 Po daily for 4 days PRED NISONE 87124565294 No Longer Active Telma Shonda Yung BACTRIM DS 800-160 MG TAB 1 PO BID for 7 days TRIMETHOPRIM-SULFAMETHOXAZOLE 58080485471 No Longer Active Telma Shonda cornelius LISINOPRIL-HYDROCHLOROTHIAZIDE 20-25 MG TABS 1 PO daily 0 LISINOPRIL-HYDROCHLOROTHIAZIDE 11056087295 Active Telmahazel cornelius RENOVA 0.05 % CREA apply to affected areas prn TRETINOIN (FACIAL WRINKLES) 10041231054 No Longer Active Telmahazel Yung VALIUM 2 MG TABS 1/2 to 1 PO Q6hrs prn DIAZEPAM 27930970348 No Longer Active Telmahazel Yung QUININE SULFATE 325 MG CAPS 1 PO QHS prn leg cramps 09/14/03 QUININE SULFATE 99176052908 No Longer Active Telma Shonda Yung LORTAB 5 5-500 MG TABS 1 to 2 PO Q6hrs prn tooth pain ACETAMINOPHEN-HYDROCODONE 68794997003 No Longer Active Telma Shonda Yung LORTAB 5 5-500 MG TABS 1 to 2 PO Q6hrs prn ACETAMINOPHEN-HYDROCODONE 01934921011 No Longer Active Telma Shonda Yung ANAYELI 180 MG TABS 1 PO QD FEXOFENADINE HCL 5 6107517854 No Longer Active Telma Shonda Yung RONDEC DM 12.5-4-15 MG/5ML SYRP 5 cc PO QID prn 05/05 [id number] 17906395759 No Longer Active Z Z RENOVA 0.05 % CREA apply to affected areas TRETINOIN (FACIAL WRINKLES) 66791483858 No Longer Active Telma Shonda Yung ZITHROMAX Z-IMELDA 250 MG TABS as directed AZITHRO MYCIN 31245095962 No Longer Active Samanta James SALICYLIC ACID POWD use as directed SALICYLIC A HARIS 53429898897 No Longer Active Telma Shonda Yung XENICAL 120 MG CAPS 1 po BID ORLISTAT 23159621 201 No Longer Active Telma Shonda Yung GLUCOSAMINE MSM COMPLEX TABS 1 PO BID prn [id number]-CMOYVQ 35603243174 No Longer Active Telma Shonda cornelius CRESTOR 5 MG TABS Take 1/2 pill of the 10mg tab daily, hol d while on Biaxin ROSUVASTATIN CALCIUM 94718117775 No Longer Active Min di Shonda Yung ZITHROMAX Z-IMELDA 250 MG TABS as directed AZITHRO MYCIN 48790588541 No Longer Active Telma Shonda Yung ZITHROMAX Z-IMELDA 250 MG TABS as directed AZITHRO MYCIN 81504831458 No Longer Active Telma Shonda Yung LIDEX 0.05 % CREA apply to aa BID FLUOCINONIDE 96768821182 No Longer Active Telma Shonda Aga BIAXIN XL IMELDA 500 MG TB24 2 PO QAM CLARITHROM YCIN 02628694852 No Longer Active Telma Shonda Aga CLARINEX 5 MG TABS 1 po daily DESLORATADINE 75948 079050 No Longer Active Telma Shonda Yung VIVACTIL 5 MG TABS 1 pO QHS for snoring PROTRIP TYLINE HCL 59418955085 No Longer Active Telma Shonda Aga BENTYL 10 MG CAPS 1 po tid DICYCLOMINE HCL 0006 8672571 No Longer Active Telma Shonda Yung CALCIUM 1500 MG TAB CALCIUM CARBONATE 31903351542 No Longer Active Telma Shonda Yung SOY 40 MG TABS SOY ISOFLAVONE 78895270 108 No Longer Active Telma Shonda Yung FISH OIL 1000 MG CAPS OMEGA-3 FATTY AC IDS 65447394493 No Longer Active Telma Shonda Yung ANUSOL-HC 25 MG SUPP bid prn HYDROCORTISONE ACETATE 75084011197 No Longer Active Telma Shonda Yung GARLIC 500 MG TABS 1 PO BID GARLIC 766783901 78 No Longer Active Telma Shonda Yung PREDNISONE 20 MG TABS 3 po today and 3 po tomorrow 200 07/09/17 PREDNISONE 41437796394 No Longer Active Telma Shonad Yung LORTAB 5 5-500 MG TABS 1-2 po q 4-6 hrs. prn pain 2004 HYDROCODONE-ACETAMINOPHEN 80752219204 No Longer Active Telma Shonda Yugn NORVASC 5 MG TABS 1 po qd AMLODIPINE BESYLATE 8353612643 0 No Longer Active John Roque CLARINEX 5 MG TABS DESLORATADINE 36162 396792 No Longer Active Telma Shonda Yung PYRIDIUM 100 MG TAB 1 PO BID for 2 days only 1 PHENAZOPYRIDINE HCL 50680056463 No Longer Active Telma Shonda Yung PALGIC 4 MG TABS 1 po daily CARBINOXAMINE PEDRO LUIS TE 09668470276 No Longer Active Telma Shonda Yung CIPRO XR 500 MG TB24 1 PO QD for 3 days C IPROFLOX HCL- CIPRO BETAINE 79452689672 No Longer Active Telma Shonda Yung PALGIC 4 MG TABS 1 PO QD CARBINOXAMINE PEDRO LUIS TE 73819909585 No Longer Active Telma Shonda Yung CLARINEX 5 MG TABS 1 PO QD DESLORATADINE 26718 735956 No Longer Active Telma Shonda Yung ZYRTEC 10 MG TAB 1 PO QD CETIRIZINE HCL 377494 06940 No Longer Active Telma Shonda Yung PREDNISONE 20 MG TABS 3 po x today and tomorrow 09/08 PREDNISONE 63804797248 No Longer Active Telma Shonda Yung HYDROCHLOROTHIAZIDE 25 MG TABS 1 po qd when b/r unavailable 2003 HYDROCHLOROTHIAZIDE 37571577806 No Longer Active Telma Dalia Yung COZAAR 100 MG TABS 1 po qd when b/r unavailable 08/22 [place] POTASSIUM 16784666936 No Longer Active Telma Shonda Yung DARVOCET-N 100 100-650 MG TAB PROPOX YPHENE N-APAP 41940234849 No Longer Active Telma Shonda Yung LORTAB 5 5-500 MG TABS 1 to 2 PO Q6hrs prn ACETAMINOPHEN-HYDROCODONE 23730853706 No Longer Active Telma Shonda Yung PREDNISONE 20 MG TAB 3 PO Qd for 2 days PREDNIS ONE 37894271037 No Longer Active Telma Yung NORVASC 5 MG TABS 1 po daily (28samples) AMLODIPINE BESYLATE 14127937884 No Longer Active Telma Shonda Yung CLARINEX 5 MG TABS 1 po daily(28samples) DESLORAT ADINE 25500502375 No Longer Active Telma Yung HYZAAR 25-100 MG TAB 1 PO QD [place] POTASSIUM -HCTZ 31944655449 No Longer Active Samanta Winn Vital Signs Date Name Value Unit Range [...] serum 4.0 g/dL Clinical Lists Update: [facility] Chemistry sodium, serum 139 mmol/L [...] mg/dL Encounters Code Encounter Date Provider Facility CPT-43425 Ofc Vst, Est Level III 20:00:36 PEPPER PICKER Telma Karl Yung DO, FACP CPT-29216 Ofc Vst, Est Level III 16:08:14 [employer] Telmahazel Yung DO, FACP CPT-48266 Ofc Vst, Est Level III 19:59:04 CDT Telma S miya Yung DO, FACP CPT-29644 Ofc Vst, Est Level III 10:08:10 CDT Telma S miya Yung DO, FACP CPT-14796 Ofc Vst, Est Level III 16:26:58 CDT Telma S miya Yung DO, FACP CPT-41838 Ofc Vst, Est Level III 14:34:34 CDT Telma S miya Yung DO, FACP CPT-23348 Ofc Vst, Est Level IV 14:11:18 CDT Telma Yung [facility] CPT-32968 Ofc Vst, Est Level IV 11:04:19 CDT Telmahazel Yung DO, FACP CPT-88503 Ofc Vst, Est Level III 11:34:48 CDT Telma S miya Carrascoi Karl Yung, DO, FACP CPT-04426 Ofc Vst, Est Level III 15:11:55 [employer] Telma S miya Barajas Yung, DO, FACP CPT-56427 Ofc Vst, Est Level IV 11:27:44 [employer] Telma Francia Barajas Yung, DO, FACP CPT-84525 Ofc Vst, Est Level IV 11:22:00 CDT Telma Francia Carrascoi Karl Yung, DO, FACP CPT-22872 Ofc Vst, Est Level IV 13:59:55 CDT Telma Francia Carrascoi Karl Yung, DO, FACP CPT-93756 Ofc Vst, Est Level IV 11:50:41 CDT Telma Francia Carrascoi Karl Yung, DO, FACP CPT-19001 Ofc Vst, Est Level IV 14:38:12 PEPPER PICKER Telma Francia Barajas Yung, DO, FACP CPT-12851 Ofc Vst, Est Level V 14:16:09 [employer]PPER PICKER Telma Charlesner Telma S Yung, DO, FACP CPT-63289 Ofc Vst, Est Level IV 14:05:44 CDT Tlema Francia Barajas Yung, DO, FACP CPT-89868 Ofc Vst, Est Level IV 14:28:47 CDT Telma Francia Carrascoi S Yung, DO, FACP CPT-07789 Ofc Vst, Est Level III 14:56:13 CDT Telma S miya Carrascoi S Yung, DO, FACP CPT-33422 Ofc Vst, Est Level I 11:02:26 CDT Telmahazel Carrascoi S Yung, DO, FACP CPT-90274 Ofc Vst, Est Level IV 14:35:35 [employer]PPER PICK[employer] Telma Francia Charlesner Telma S Yung, DO, FACP CPT-15370 Ofc Vst, Est Level IV 14:43:28 PEPPER PICKER Telma Francia Yung Telma S Yung, DO, FACP CPT-18805 Ofc Vst, Est Level IV 11:24:19 CDT Telma Francia Charlesner Telma S Yung, DO, FACP CPT-36363 Ofc Vst, Est Level IV 15:22:26 CDT Telma Francia givens Yung Telma S Yung, DO, FACP CPT-06608 Ofc Vst, Est Level IV 12:15:20 PEPPER PICKER Telma Francia givens Yung Telma S Aga, DO, FACP CPT-76121 Ofc Vst, Est Level IV 10:38:00 PEPPER PICKER Telma Francia Yung Telma S Yung, DO, FACP CPT-67324 Ofc Vst, Est Level III 15:52:45 CDT Telma S umyrtlee Yung Telma S Yung, DO, FACP CPT-87261 Ofc Vst, Est Level III 11:12:09 PEPPER PICKER Telma Karl umyrtlee Yung Telma S Aga, DO, FACP CPT-81257 Ofc Vst, Est Level III 11:46:31 PE[employer] PICKER Telma Karl daphneye Yung Telma S Aga, DO, FACP CPT-94389 Ofc Vst, Est Level III 14:12:37 CDT Telma S uzanne Aga Telma S Aga, DO, FACP CPT-01130 Ofc Vst, Est Level III 15:12:58 CDT Telma S utosha Yung [facility] [place] CPT-34871 Ofc Vst, Est Level III 14:27:05 CDT Telma S miya Yung [facility] [place] CPT-16004 Ofc Vst, Est Level IV 14:43:20 PEPPER PICKER Telmahazel Yung [facility] [place] CPT-25474 Ofc Vst, Est Level IV 14:06:31 CDT Telma Francia Yung [facility] [place] CPT-83231 Ofc Vst, Est Level III 15:27:49 CDT Telma S miya Yung [facility] [place] CPT-92919 Ofc Vst, Est Level III 14:13:28 CDT Telma S miya Yung [facility] [place] CPT-26118 Ofc Vst, Est Level IV 11:54:06 PEPPER PICKER Telmahazel Yung [facility] [place] CPT-79045 Ofc Vst, Est Level II 10:32:16 PEPPER PICKER Telma Yung [facility] [place] CPT-41859 Ofc Vst, Est Level III 12:06:26 PEPPER PICKER Telma Karl Yung [facility] [place] CPT-60275 Ofc Vst, Est Level III 10:15:58 CDT Telma S miya Yung [facility] [place] CPT-47025 Ofc Vst, Est Level IV 19:00:53 CDT Telma Francia Yung [facility] [place] CPT-39624 Ofc Vst, Est Level III 14:55:16 PEPPER PICKER Telma Karl Yung [facility] [place] CPT-15507 Ofc Vst, Est Level IV 17:39:50 PEPPER PICKER Telmahazel Yung [facility] [place] CPT-29408 Ofc Vst, Est Level IV 17:56:34 CDT Telma Francia Yung [facility] [place] CPT-62234 Ofc Vst, Est Level III 19:26:05 CDT Telma Karl Charlesner [facility] [place] CPT-35620 Ofc Vst, Est Level III 19:13:03 CDT Telma S miya Yung [facility] [place] CPT-58419 Ofc Vst, Est Level IV 17:45:10 CDT Telmahazel Yung [facility] [place] CPT-08019 Ofc Vst, Est Level III 14:17:48 CDT Telma Karl miya Yung [facility] [place] CPT-33803 Ofc Vst, Est Level III 15:13:37 CDT Telma S miya Yung [facility] [place] CPT-08276 Ofc Vst, Est Level II 16:16:07 PEPPER PICKER Telma Yung [facility] [place] CPT-73388 Ofc Vst, New Level IV 10:06:31 PEPPER PICKER Telma Yung [facility] [place] Procedures Code Procedure Name Date Entry Date Standard Desc ription CPT-G0439 Medicare Annual Wellness Visit 20:22:32 CDT CPT-G8446 E-Prescribing not done due to controlled substance 13:39:34 PEPPER PICKER CPT-G0439 Medicare Annual Wellness Visit 13:39:34 PEPPER PICKER CPT-G8446 E-Prescribing not done due to controlled substance 16:26:58 CDT CPT-G8445 E-Prescribing Not sent due to no medicat ion given 14:34:34 CDT CPT-G8445 E-Prescribing Not sent due to no medicat ion given 17:02:52 PEPPER PICKER CPT-G0438 Medicare Annual Wellness Visit Initial 1 17:02:52 PEPPER PICKER
--- OUTSIDE RECORDS SUMMARY | 2019-09-18 12:40 | XMS REPORT | Clinical Summary ---
Author Author UserLisseth Organization [facility] Address Unknown Phone Unavailable [...] Telma Yung Edema MUSCLE PAIN 729.1 Resolved Tlema Yung Myalgia and myositis, unspecified PHARYNGITIS, ACUTE [...] Yung Postsurgical aortocoronary bypass status CORONARY ATHEROSCLEROSIS, [place] 414.01 Active Telma Yung Coronary atherosclerosis of [place] yes[place] nary artery OSTEOPOROSIS 733.00 Resolved Telma [...] 1 PO Q6hrs prn nausea ONDA NSETRON 16298911878 No Longer Active Telma Yung ADVAIR DISKUS 100-50 MCG/DOSE MISC 1 puff BID 04/15 FLUTICASONE-SALMETEROL 22116122526 No Longer Active Telma Yung CEFDINIR 300 MG CAPS 1 PO BID CEFDINIR 4630291 0900 No Longer Active Telmahazel Yung METFORMIN HCL 500 MG TABS 1 PO every day METFOR MIN HCL 80280053690 No Longer Active Telmahazel Yung FLAX SEED OIL CAPS 1 PO daily FLAXSEED (LINSEED) CAPS 11 384199861 Active Telmahazel Yung HYDROCODONE-ACETAMINOPHEN 5-325 MG TABS 1 PO TID prn HYDROCODONE-ACETAMINOPHEN 50430670534 Active Telmahazel Yung VITAMIN D3 00243 UNIT CAPS 1 PO every other day CH OLECALCIFEROL 50711125051 Active Telmahazel Yung TOPROL XL 100 MG TAB CR 1/2 PO DAILY TOPROL XL 100 MG TAB CR 53066384386 Active Telmahazel Yung METOPROLOL TARTRATE 25 MG TABS 1/2 PO QAM METOP ROLOL TARTRATE 41802549310 No Longer Active Telma Yung LOVASTATIN 40 MG TABS 2 po daily LOVASTATIN 253587544 06 Active Telmahazel Yung ANUSOL-HC 25 MG SUPPOSITORY 1 MT TID prn HYDROCORTISONE SKYLER (RECTAL) 81999546212 No Longer Active Telma Yung METAMUCIL POWD 30 minutes before meals PSYLLRANI Berger POWD 60275384636 No Longer Active Telma Yung ASPIRIN 81 MG CHEW TAB 2 PO QD ASPIRIN 83903865835 Activ e Telmahazel Yung ASPIRIN 81 MG TAB 1 PO daily ASPIRIN 74375125476 No L onger Active Telmahazel Yung LIPITOR 40 MG TAB 1 PO Daily ATORVASTATIN CALCIUM 54038614353 No Longer Active Samanta James FENOFIBRATE 54 MG TABS 1 PO DAILY FENOFIBRATE 7730713 1110 Active Telmahazel Yung FISH OIL 1000 MG CAPS 1 PO daily OMEGA-3 FATTY ACIDS 743 73375999 Active Telmahazel Yung LOVASTATIN 20 MG TABS 3 PO daily for cholesterol L OVASTATIN 93770014629 No Longer Active Telmahazel Yung AMBIEN 5 MG TAB 1 PO QHS ZOLPIDEM TARTRATE 5932977372 4 Active Telmahazel Yung ZOFRAN ODT 8 MG TBDP 1 PO Q6hrs prn ONDANSETRON 18989782823 No Longer Active Emmanuel Vidal LASIX 20 MG TAB 1 PO QD FUROSEMIDE 92152014263 Active Telmahazel Yung RETIN-A 0.025 % CREA Apply to facial lesions daily 201 03/11/26 TRETINOIN 99472158680 No Longer Active Telmahazel Yung LASIX 20 MG TAB 1 PO prn foot swelling FUROSEM ROSENDO 35098804799 No Longer Active Telma Yung KLOR-CON M20 CR-TABS 1 PO daily POTASS IUM CHLORIDE MIGUEL CR CR-TABS 51816624586 Active Telmahazel Yung LORAZEPAM 0.5 MG TAB 1 PO QID prn LORAZEPAM 01531941628 Active Samanta James NETTI-POT rinse nasal pasageways daily after sinus infecti on treated NETTI-POT No Longer Active Telma Yung MOBIC 15 MG TABS 1 PO daily MELOXICAM 1888190014 0 No Longer Active Telma Yung CLARITIN 10 MG TAB 1 PO daily LORATADINE 58984261219 Active Telmahazel Yung RENOVA 0.02 % CREA Apply to facial lesions daily prn TRETINOIN (FACIAL WRINKLES) 49065278810 No Longer Active Telma Yung CIPRO 250 MG TABS 1 PO BID CIPROFLOXACIN HCL 66 545092088 No Longer Active Telma SERRA'Karl NASAL SPRAY (DEXAMETHASONE, GENTAMICIN, SA LINE) 2 puffs each nostril TID for [address] RAMÍREZ NASAL SP RAY (DEXAMETHASONE, GENTAMICIN, SALINE) No Longer Active Telma Yung AFRIN NASAL SPRAY 0.05 % SOLN as directed for 2 days only 6 OXYMETAZOLINE HCL 58520874525 No Longer Active Telma Yung LOTREL 5-10 MG CAPS 1 PO daily for BP AML ODIPINE BESY-BENAZEPRIL HCL 71618488644 No Longer Active Telma Yung CHLORPHENIRAMINE MALEATE 4 MG TABS 1 PO Q6hrs prn for cold 03/17 CHLORPHENIRAMINE MALEATE 82063766736 No Longer Active Telma RAMÍREZ NASAL SPRAY (DEXAMETHASONE, GENTAMICIN, SA LINE) 2 puffs each nostril TID for [address] RAMÍREZ NASAL SP RAY (DEXAMETHASONE, GENTAMICIN, SALINE) No Longer Active Telma Yung LEVAQUIN 500 MG TAB 1 PO QD LEVOFLOXACIN 09818 466821 No Longer Active Telma Yung FLEXERIL 10 MG TAB 1 PO QHS CYCLOBENZAPRINE H CL 15854349180 No Longer Active Telma Shonda Yung PREDNISONE 20 MG TAB 2 pills at once for 3 days then 1 pill daily for 3 days PREDNISONE 84957681362 No Longer Active Telma Dalia Yung MUCINEX 600 MG TB12 1 PO BID for 5 days GUAIFEN ESIN 93138653003 No Longer Active Telma Shonda Yung PREDNISONE 20 MG TAB 2 PO daily for 4 days PRED NISONE 47394222060 No Longer Active Telma Shonda Yung LEVAQUIN 500 MG TABS 1 PO daily for 7 days LEVO FLOXACIN 80449279216 No Longer Active Telma Shonda Yung PREDNISONE 20 MG TAB 1 Po daily for 4 days PRED NISONE 79348019809 No Longer Active Telma Shonda Yung BACTRIM DS 800-160 MG TAB 1 PO BID for 7 days TRIMETHOPRIM-SULFAMETHOXAZOLE 12080103192 No Longer Active Telma Shonda cornelius LISINOPRIL-HYDROCHLOROTHIAZIDE 20-25 MG TABS 1 PO daily 0 LISINOPRIL-HYDROCHLOROTHIAZIDE 04731395780 Active Telmahazel cornelius RENOVA 0.05 % CREA apply to affected areas prn TRETINOIN (FACIAL WRINKLES) 14762514855 No Longer Active Telmahazel Yung VALIUM 2 MG TABS 1/2 to 1 PO Q6hrs prn DIAZEPAM 40163808804 No Longer Active Telmahazel Yung QUININE SULFATE 325 MG CAPS 1 PO QHS prn leg cramps 09/14/03 QUININE SULFATE 35931253157 No Longer Active Telma Shonda Yung LORTAB 5 5-500 MG TABS 1 to 2 PO Q6hrs prn tooth pain ACETAMINOPHEN-HYDROCODONE 99967134648 No Longer Active Telma Shonda Yung LORTAB 5 5-500 MG TABS 1 to 2 PO Q6hrs prn ACETAMINOPHEN-HYDROCODONE 28660408778 No Longer Active Telma Shonda Yung ANAYELI 180 MG TABS 1 PO QD FEXOFENADINE HCL 5 3383633681 No Longer Active Telma Shonda Yung RONDEC DM 12.5-4-15 MG/5ML SYRP 5 cc PO QID prn 05/05 [id number] 96594230679 No Longer Active Z Z RENOVA 0.05 % CREA apply to affected areas TRETINOIN (FACIAL WRINKLES) 05525863668 No Longer Active Telma Shonda Yung ZITHROMAX Z-IMELDA 250 MG TABS as directed AZITHRO MYCIN 11233039992 No Longer Active Samanta James SALICYLIC ACID POWD use as directed SALICYLIC A HARIS 51390252041 No Longer Active Telma Shonda Yung XENICAL 120 MG CAPS 1 po BID ORLISTAT 29111530 201 No Longer Active Telma Shonda Yung GLUCOSAMINE MSM COMPLEX TABS 1 PO BID prn [id number] 86356272705 No Longer Active Telma Shonda cornelius CRESTOR 5 MG TABS Take 1/2 pill of the 10mg tab daily, hol d while on Biaxin ROSUVASTATIN CALCIUM 78671167806 No Longer Active Min di Shonda Yung ZITHROMAX Z-IMELDA 250 MG TABS as directed AZITHRO MYCIN 66593257925 No Longer Active Telma Shonda Yung ZITHROMAX Z-IMELDA 250 MG TABS as directed AZITHRO MYCIN 01148337968 No Longer Active Telma Shonda Yung LIDEX 0.05 % CREA apply to aa BID FLUOCINONIDE 06458844876 No Longer Active Telma Shonda Aga BIAXIN XL IMELDA 500 MG TB24 2 PO QAM CLARITHROM YCIN 62608288297 No Longer Active Telma Shonda Aga CLARINEX 5 MG TABS 1 po daily DESLORATADINE 51881 579542 No Longer Active Telma Shonda Yung VIVACTIL 5 MG TABS 1 pO QHS for snoring PROTRIP TYLINE HCL 08043929141 No Longer Active Telma Shonda Aga BENTYL 10 MG CAPS 1 po tid DICYCLOMINE HCL 0006 3316165 No Longer Active Telma Shonda Yung CALCIUM 1500 MG TAB CALCIUM CARBONATE 47249291914 No Longer Active Telma Shonda Yung SOY 40 MG TABS SOY ISOFLAVONE 38425869 108 No Longer Active Telma Shonda Yung FISH OIL 1000 MG CAPS OMEGA-3 FATTY AC IDS 61740173560 No Longer Active Telma Shonda Yung ANUSOL-HC 25 MG SUPP bid prn HYDROCORTISONE ACETATE 45898095833 No Longer Active Telma Shonda Yung GARLIC 500 MG TABS 1 PO BID GARLIC 856500710 78 No Longer Active Telma Shonda Yung PREDNISONE 20 MG TABS 3 po today and 3 po tomorrow 200 07/09/17 PREDNISONE 76780080250 No Longer Active Telma Shonda Yung LORTAB 5 5-500 MG TABS 1-2 po q 4-6 hrs. prn pain 2004 HYDROCODONE-ACETAMINOPHEN 02532988593 No Longer Active Telma Shonda Yung NORVASC 5 MG TABS 1 po qd AMLODIPINE BESYLATE 8894687349 0 No Longer Active John Roque CLARINEX 5 MG TABS DESLORATADINE 11542 068656 No Longer Active Telma Shonda Yung PYRIDIUM 100 MG TAB 1 PO BID for 2 days only 1 PHENAZOPYRIDINE HCL 08379284395 No Longer Active Telma Shonda Yung PALGIC 4 MG TABS 1 po daily CARBINOXAMINE PEDRO LUIS TE 58648839473 No Longer Active Telma Shonda Yung CIPRO XR 500 MG TB24 1 PO QD for 3 days C IPROFLOX HCL- CIPRO BETAINE 41483123716 No Longer Active Telma Shonda Yung PALGIC 4 MG TABS 1 PO QD CARBINOXAMINE PEDRO LUIS TE 39083845885 No Longer Active Telma Shonda Yung CLARINEX 5 MG TABS 1 PO QD DESLORATADINE 40686 722002 No Longer Active Telma Shonda Yung ZYRTEC 10 MG TAB 1 PO QD CETIRIZINE HCL 908959 34209 No Longer Active Telma Shonda Yung PREDNISONE 20 MG TABS 3 po x today and tomorrow 09/08 PREDNISONE 22306411441 No Longer Active Telma Shonda Yung HYDROCHLOROTHIAZIDE 25 MG TABS 1 po qd when b/r unavailable 2003 HYDROCHLOROTHIAZIDE 57883553911 No Longer Active Telma Dalia Yung COZAAR 100 MG TABS 1 po qd when b/r unavailable 08/22 [place] POTASSIUM 95015136506 No Longer Active Telma Shonda Yung DARVOCET-N 100 100-650 MG TAB PROPOX YPHENE N-APAP 76988733035 No Longer Active Telma Shonda Yung LORTAB 5 5-500 MG TABS 1 to 2 PO Q6hrs prn ACETAMINOPHEN-HYDROCODONE 26055536350 No Longer Active Telma Shonda Yung PREDNISONE 20 MG TAB 3 PO Qd for 2 days PREDNIS ONE 14719919975 No Longer Active Telma Yung NORVASC 5 MG TABS 1 po daily (28samples) AMLODIPINE BESYLATE 77205612085 No Longer Active Telma Shonda Yung CLARINEX 5 MG TABS 1 po daily(28samples) DESLORAT ADINE 76470140256 No Longer Active Telma Yung HYZAAR 25-100 MG TAB 1 PO QD [place] POTASSIUM -HCTZ 63942202362 No Longer Active Samanta Tecate Vital Signs Date Name Value Unit Range [...] serum 4.0 g/dL Clinical Lists Update: [facility] Chemistry sodium, serum 139 mmol/L [...] mg/dL Encounters Code Encounter Date Provider Facility CPT-62572 Ofc Vst, Est Level III 20:00:36 [employer]AL SERVICE MANAGER Telma Karl Yung DO, FACP CPT-57003 Ofc Vst, Est Level III 16:08:14 [employer]ERAL SERVICE MANAGER Telmahazel Yung DO, FACP CPT-15787 Ofc Vst, Est Level III 19:59:04 CDT Telma S miya Yung DO, FACP CPT-93880 Ofc Vst, Est Level III 10:08:10 CDT Telma S miya Yung DO, FACP CPT-96183 Ofc Vst, Est Level III 16:26:58 CDT Telma S miya Yung DO, FACP CPT-20340 Ofc Vst, Est Level III 14:34:34 CDT Telma S miya Yung DO, FACP CPT-62552 Ofc Vst, Est Level IV 14:11:18 CDT Telma Yung [facility] CPT-43608 Ofc Vst, Est Level IV 11:04:19 CDT Telmahazel Yung DO, FACP CPT-28419 Ofc Vst, Est Level III 11:34:48 CDT Telma S miya Carrascoi Karl Yung, DO, FACP CPT-86984 Ofc Vst, Est Level III 15:11:55 FUNERAL SERVICE MANAGER Telma S miya Barajas Yung, DO, FACP CPT-90374 Ofc Vst, Est Level IV 11:27:44 FUNERAL SERVICE MANAGER Telma Francia Barajas Yung, DO, FACP CPT-65643 Ofc Vst, Est Level IV 11:22:00 CDT Telma Francia Carrascoi Karl Yung, DO, FACP CPT-82711 Ofc Vst, Est Level IV 13:59:55 CDT Telma Francia Carrascoi Karl Yung, DO, FACP CPT-10793 Ofc Vst, Est Level IV 11:50:41 CDT Telma Francia Carrascoi Karl Yung, DO, FACP CPT-32941 Ofc Vst, Est Level IV 14:38:12 FUNERAL SERVICE MANAGER Telma Francia Barajas Yung, DO, FACP CPT-89765 Ofc Vst, Est Level V 14:16:09 FUNERAL SERVICE MANAGER Telma Charlesner Telma S Yung, DO, FACP CPT-18565 Ofc Vst, Est Level IV 14:05:44 CDT Telma Francia Barajas Yung, DO, FACP CPT-72605 Ofc Vst, Est Level IV 14:28:47 CDT Telma Francia Carrascoi S Yung, DO, FACP CPT-49248 Ofc Vst, Est Level III 14:56:13 CDT Telma S miya Carrascoi S Yung, DO, FACP CPT-63010 Ofc Vst, Est Level I 11:02:26 CDT Telmahazel Carrascoi S Yung, DO, FACP CPT-45106 Ofc Vst, Est Level IV 14:35:35 FUNERAL SERVICE MANAGER Telma Francia Charlesner Telma S Yung, DO, FACP CPT-48722 Ofc Vst, Est Level IV 14:43:28 FUNERAL SERVICE MANAGER Telma Francia Yung Telma S Yung, DO, FACP CPT-71076 Ofc Vst, Est Level IV 11:24:19 CDT Telma Francia Charlesner Telma S Yung, DO, FACP CPT-41877 Ofc Vst, Est Level IV 15:22:26 CDT Telma Francia givens Yung Telma S Yung, DO, FACP CPT-21976 Ofc Vst, Est Level IV 12:15:20 FUNERAL SERVICE MANAGER Telma Francia givens Yung Telma S Aga, DO, FACP CPT-10336 Ofc Vst, Est Level IV 10:38:00 FUNERAL SERVICE MANAGER Telma Francia Yung Telma S Yung, DO, FACP CPT-87961 Ofc Vst, Est Level III 15:52:45 CDT Telma S umyrtlee Yung Telma S Yung, DO, FACP CPT-06320 Ofc Vst, Est Level III 11:12:09 FUNERAL SERVICE MANAGER Telma Karl umyrtlee Yung Telma S Aga, DO, FACP CPT-45769 Ofc Vst, Est Level III 11:46:31 FUNERAL SERVICE MANAGER Telma Karl daphneye Yung Telma S Aga, DO, FACP CPT-61107 Ofc Vst, Est Level III 14:12:37 CDT Telma S uzanne Aga Telma S Aga, DO, FACP CPT-86142 Ofc Vst, Est Level III 15:12:58 CDT Telma S utosha Yung [facility] [place] CPT-12753 Ofc Vst, Est Level III 14:27:05 CDT Telma S miya Yung [facility] [place] CPT-69611 Ofc Vst, Est Level IV 14:43:20 FUNERAL SERVICE MANAGER Telmahazel Yung [facility] [place] CPT-29643 Ofc Vst, Est Level IV 14:06:31 CDT Telma Francia Yung [facility] [place] CPT-65877 Ofc Vst, Est Level III 15:27:49 CDT Telma S miya Yung [facility] [place] CPT-90044 Ofc Vst, Est Level III 14:13:28 CDT Telma S miya Yung [facility] [place] CPT-76901 Ofc Vst, Est Level IV 11:54:06 FUNERAL SERVICE MANAGER Telmahazel Yung [facility] [employer] [facility] [place] CPT-30692 Ofc Vst, Est Level II 10:32:16 FUNERAL SERVICE MANAGER Telma Yung [facility] [place] CPT-88893 Ofc Vst, Est Level III 12:06:26 FUNERAL SERVICE MANAGER Telma Karl Yung [facility] [place] CPT-71988 Ofc Vst, Est Level III 10:15:58 CDT Telma S miya Yung [facility] [place] CPT-61465 Ofc Vst, Est Level IV 19:00:53 CDT Telma Francia Ynug [facility] [place] CPT-71279 Ofc Vst, Est Level III 14:55:16 FUNERAL SERVICE MANAGER Telma Karl Yung [facility] [place] CPT-83056 Ofc Vst, Est Level IV 17:39:50 FUNERAL SERVICE MANAGER Telmahazel Yung [facility] [place] CPT-56863 Ofc Vst, Est Level IV 17:56:34 CDT Telma Francia Yung [facility] [place] CPT-98399 Ofc Vst, Est Level III 19:26:05 CDT Telma Karl Charlesner [facility] [place] CPT-86903 Ofc Vst, Est Level III 19:13:03 CDT Telma S miya Yung [facility] [place] CPT-60032 Ofc Vst, Est Level IV 17:45:10 CDT Telmahazel Yung [facility] [place] CPT-89256 Ofc Vst, Est Level III 14:17:48 CDT Telma Karl miya Yung [employer] [place] CPT-16896 Ofc Vst, Est Level III 15:13:37 CDT Telma S miya Yung [employer] [facility] [place] CPT-22200 Ofc Vst, Est Level II 16:16:07 FUNERAL SERVICE MANAGER Telma Yung [facility] [place] CPT-62008 Ofc Vst, New Level IV 10:06:31 FUNERAL SERVICE MANAGER Telma Yung [facility] [place] Procedures Code Procedure Name Date Entry Date Standard Desc ription CPT-G0439 Medicare Annual Wellness Visit 20:22:32 CDT CPT-G8446 E-Prescribing not done due to controlled substance 13:39:34 FUNERAL SERVICE MANAGER CPT-G0439 Medicare Annual Wellness Visit 13:39:34 FUNERAL SERVICE MANAGER CPT-G8446 E-Prescribing not done due to controlled substance 16:26:58 CDT CPT-G8445 E-Prescribing Not sent due to no medicat ion given 14:34:34 CDT CPT-G8445 E-Prescribing Not sent due to no medicat ion given 17:02:52 FUNERAL SERVICE MANAGER CPT-G0438 Medicare Annual Wellness Visit Initial 1 17:02:52 FUNERAL SERVICE MANAGER
--- OUTSIDE RECORDS SUMMARY | 2019-09-18 12:41 | XMS REPORT | Clinical Summary ---
Author Author UserLisseth Organization 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.00 Resolved Telma [...] 1 PO Q6hrs prn nausea ONDA NSETRON 27115941400 No Longer Active Telma Yung ADVAIR DISKUS 100-50 MCG/DOSE MISC 1 puff BID 04/15 FLUTICASONE-SALMETEROL 87489617176 No Longer Active Telma Yung CEFDINIR 300 MG CAPS 1 PO BID CEFDINIR 9261240 0900 No Longer Active Telmahazel Yung METFORMIN HCL 500 MG TABS 1 PO every day METFOR MIN HCL 63591725873 No Longer Active Telmahazel Yung FLAX SEED OIL CAPS 1 PO daily FLAXSEED (LINSEED) CAPS 11 372362216 Active Telmahazel Yung HYDROCODONE-ACETAMINOPHEN 5-325 MG TABS 1 PO TID prn HYDROCODONE-ACETAMINOPHEN 91586382986 Active Telmahazel Yung VITAMIN D3 63534 UNIT CAPS 1 PO every other day CH OLECALCIFEROL 42704351361 Active Telmahazel Yung TOPROL XL 100 MG TAB CR 1/2 PO DAILY TOPROL XL 100 MG TAB CR 85165860783 Active Telmahazel Yung METOPROLOL TARTRATE 25 MG TABS 1/2 PO QAM METOP ROLOL TARTRATE 57367319470 No Longer Active Telma Yung LOVASTATIN 40 MG TABS 2 po daily LOVASTATIN 526517560 06 Active Telmahazel Yung ANUSOL-HC 25 MG SUPPOSITORY 1 [place] TID prn HYDROCORTISONE SKYLER (RECTAL) 08624556282 No Longer Active Telma Yung METAMUCIL POWD 30 minutes before meals PSYLLRANI Berger POWD 32067561842 No Longer Active Telma Yung ASPIRIN 81 MG CHEW TAB 2 PO QD ASPIRIN 78281702879 Activ e Telmahazel Yung ASPIRIN 81 MG TAB 1 PO daily ASPIRIN 36669087366 No L onger Active Telmahazel Yung LIPITOR 40 MG TAB 1 PO Daily ATORVASTATIN CALCIUM 12406162909 No Longer Active Samanta James FENOFIBRATE 54 MG TABS 1 PO DAILY FENOFIBRATE 7318188 1110 Active Telmahazel Yung FISH OIL 1000 MG CAPS 1 PO daily OMEGA-3 FATTY ACIDS 743 19764877 Active Telmahazel Yung LOVASTATIN 20 MG TABS 3 PO daily for cholesterol L OVASTATIN 98772935563 No Longer Active Telmahazel Yung AMBIEN 5 MG TAB 1 PO QHS ZOLPIDEM TARTRATE 7176693921 4 Active Telmahazel Yung ZOFRAN ODT 8 MG TBDP 1 PO Q6hrs prn ONDANSETRON 57917747546 No Longer Active Emmanuel Vidal LASIX 20 MG TAB 1 PO QD FUROSEMIDE 87901438422 Active Telmahazel Yung RETIN-A 0.025 % CREA Apply to facial lesions daily 201 03/11/26 TRETINOIN 42151672056 No Longer Active Telmahazel Yung LASIX 20 MG TAB 1 PO prn foot swelling FUROSEM ROSENDO 03267007284 No Longer Active Telma Yung KLOR-CON M20 CR-TABS 1 PO daily POTASS IUM CHLORIDE MIGUEL CR CR-TABS 83352318423 Active Telmahazel Yung LORAZEPAM 0.5 MG TAB 1 PO QID prn LORAZEPAM 20910004737 Active Samanta James NETTI-POT rinse nasal pasageways daily after sinus infecti on treated NETTI-POT No Longer Active Telma Yung MOBIC 15 MG TABS 1 PO daily MELOXICAM 0894880873 0 No Longer Active Telma Yung CLARITIN 10 MG TAB 1 PO daily LORATADINE 90416991072 Active Telmahazel Yung RENOVA 0.02 % CREA Apply to facial lesions daily prn TRETINOIN (FACIAL WRINKLES) 10168136471 No Longer Active Telma Yung CIPRO 250 MG TABS 1 PO BID CIPROFLOXACIN HCL 66 825826907 No Longer Active Telma SERRA'Karl NASAL SPRAY (DEXAMETHASONE, GENTAMICIN, SA LINE) 2 puffs each nostril TID for [address] RAMÍREZ NASAL SP RAY (DEXAMETHASONE, GENTAMICIN, SALINE) No Longer Active Telma Yung AFRIN NASAL SPRAY 0.05 % SOLN as directed for 2 days only 6 OXYMETAZOLINE HCL 23268707325 No Longer Active Telma Yung LOTREL 5-10 MG CAPS 1 PO daily for BP AML ODIPINE BESY-BENAZEPRIL HCL 48726746004 No Longer Active Telma Yung CHLORPHENIRAMINE MALEATE 4 MG TABS 1 PO Q6hrs prn for cold 03/17 CHLORPHENIRAMINE MALEATE 34155467465 No Longer Active Telma RAMÍREZ NASAL SPRAY (DEXAMETHASONE, GENTAMICIN, SA LINE) 2 puffs each nostril TID for [address] RAMÍREZ NASAL SP RAY (DEXAMETHASONE, GENTAMICIN, SALINE) No Longer Active Telma Yung LEVAQUIN 500 MG TAB 1 PO QD LEVOFLOXACIN 51520 595892 No Longer Active Telma Yung FLEXERIL 10 MG TAB 1 PO QHS CYCLOBENZAPRINE H CL 10675716481 No Longer Active Telma Shonda Yung PREDNISONE 20 MG TAB 2 pills at once for 3 days then 1 pill daily for 3 days PREDNISONE 36398597286 No Longer Active Telma Dalia Yung MUCINEX 600 MG TB12 1 PO BID for 5 days GUAIFEN ESIN 54191625301 No Longer Active Telma Shonda Yung PREDNISONE 20 MG TAB 2 PO daily for 4 days PRED NISONE 33625417628 No Longer Active Telma Shonda Yung LEVAQUIN 500 MG TABS 1 PO daily for 7 days LEVO FLOXACIN 01841353463 No Longer Active Telma Shonda Yung PREDNISONE 20 MG TAB 1 Po daily for 4 days PRED NISONE 04525434774 No Longer Active Telma Shonda Yung BACTRIM DS 800-160 MG TAB 1 PO BID for 7 days TRIMETHOPRIM-SULFAMETHOXAZOLE 91345178684 No Longer Active Telma Shonda cornelius LISINOPRIL-HYDROCHLOROTHIAZIDE 20-25 MG TABS 1 PO daily 0 LISINOPRIL-HYDROCHLOROTHIAZIDE 53525075265 Active Telmahazel cornelius RENOVA 0.05 % CREA apply to affected areas prn TRETINOIN (FACIAL WRINKLES) 02568086308 No Longer Active Telmahazel Yung VALIUM 2 MG TABS 1/2 to 1 PO Q6hrs prn DIAZEPAM 80543845672 No Longer Active Telmahazel Yung QUININE SULFATE 325 MG CAPS 1 PO QHS prn leg cramps 09/14/03 QUININE SULFATE 05785370910 No Longer Active Telma Shonda Yung LORTAB 5 5-500 MG TABS 1 to 2 PO Q6hrs prn tooth pain ACETAMINOPHEN-HYDROCODONE 74705724646 No Longer Active Telma Shonda Yung LORTAB 5 5-500 MG TABS 1 to 2 PO Q6hrs prn ACETAMINOPHEN-HYDROCODONE 94400881330 No Longer Active Telma Shonda Yung ANAYELI 180 MG TABS 1 PO QD FEXOFENADINE HCL 5 8304020176 No Longer Active Telma Shonda Yung RONDEC DM 12.5-4-15 MG/5ML SYRP 5 cc PO QID prn 05/05 VUESTAUGLRPYI-YPSACDZEI-CZ 27667842788 No Longer Active Z Z RENOVA 0.05 % CREA apply to affected areas TRETINOIN (FACIAL WRINKLES) 01690644527 No Longer Active Telma Shonda Yung ZITHROMAX Z-IMELDA 250 MG TABS as directed AZITHRO MYCIN 82566269106 No Longer Active Samanta James SALICYLIC ACID POWD use as directed SALICYLIC A HARIS 17887988634 No Longer Active Telma Shonda Yung XENICAL 120 MG CAPS 1 po BID ORLISTAT 65959720 201 No Longer Active Telma Shonda Yung GLUCOSAMINE MSM COMPLEX TABS 1 PO BID prn ESHDNP-QZK-L-ZD-HKUBLN-ETQBWG 88430674124 No Longer Active Telma Shonda cornelius CRESTOR 5 MG TABS Take 1/2 pill of the 10mg tab daily, hol d while on Biaxin ROSUVASTATIN CALCIUM 07905048832 No Longer Active Min di Shonda Yung ZITHROMAX Z-IMELDA 250 MG TABS as directed AZITHRO MYCIN 93389123708 No Longer Active Telma Shonda Yung ZITHROMAX Z-IMELDA 250 MG TABS as directed AZITHRO MYCIN 16914022018 No Longer Active Telma Shonda Yung LIDEX 0.05 % CREA apply to aa BID FLUOCINONIDE 37441155871 No Longer Active Telma Shonda Aga BIAXIN XL IMELDA 500 MG TB24 2 PO QAM CLARITHROM YCIN 92044994849 No Longer Active Telma Shonda Aga CLARINEX 5 MG TABS 1 po daily DESLORATADINE 36937 727675 No Longer Active Telma Shonda Yung VIVACTIL 5 MG TABS 1 pO QHS for snoring PROTRIP TYLINE HCL 76796852361 No Longer Active Telma Shonda Aga BENTYL 10 MG CAPS 1 po tid DICYCLOMINE HCL 0006 9334139 No Longer Active Telma Shonda Yung CALCIUM 1500 MG TAB CALCIUM CARBONATE 84620352282 No Longer Active Telma Shonda Yung SOY 40 MG TABS SOY ISOFLAVONE 83049653 108 No Longer Active Telma Shonda Yung FISH OIL 1000 MG CAPS OMEGA-3 FATTY AC IDS 62323675055 No Longer Active Telma Shonda Yung ANUSOL-HC 25 MG SUPP bid prn HYDROCORTISONE ACETATE 14814006873 No Longer Active Telma Shonda Yung GARLIC 500 MG TABS 1 PO BID GARLIC 348790897 78 No Longer Active Telma Shonda Yung PREDNISONE 20 MG TABS 3 po today and 3 po tomorrow 200 07/09/17 PREDNISONE 72576811779 No Longer Active Telma Shonda Yung LORTAB 5 5-500 MG TABS 1-2 po q 4-6 hrs. prn pain 2004 HYDROCODONE-ACETAMINOPHEN 53704349790 No Longer Active Telma Shonda Yung NORVASC 5 MG TABS 1 po qd AMLODIPINE BESYLATE 7246620327 0 No Longer Active John Roque CLARINEX 5 MG TABS DESLORATADINE 85555 405592 No Longer Active Telma Shonda Yung PYRIDIUM 100 MG TAB 1 PO BID for 2 days only 1 PHENAZOPYRIDINE HCL 45818930428 No Longer Active Telma Shonda Yung PALGIC 4 MG TABS 1 po daily CARBINOXAMINE PEDRO LUIS TE 28308577057 No Longer Active Telma Shonda Yung CIPRO XR 500 MG TB24 1 PO QD for 3 days C IPROFLOX HCL- CIPRO BETAINE 59675120506 No Longer Active Telma Shonda Yung PALGIC 4 MG TABS 1 PO QD CARBINOXAMINE PEDRO LUIS TE 88366001301 No Longer Active Telma Shonda Yung CLARINEX 5 MG TABS 1 PO QD DESLORATADINE 97872 717584 No Longer Active Telma Shonda Yung ZYRTEC 10 MG TAB 1 PO QD CETIRIZINE HCL 392255 59353 No Longer Active Telma Shonda Yung PREDNISONE 20 MG TABS 3 po x today and tomorrow 09/08 PREDNISONE 07031800733 No Longer Active Telma Shonda Yung HYDROCHLOROTHIAZIDE 25 MG TABS 1 po qd when b/r unavailable 2003 HYDROCHLOROTHIAZIDE 35724515830 No Longer Active Telma Dalia Yung COZAAR 100 MG TABS 1 po qd when b/r unavailable 08/22 [place] POTASSIUM 86224149359 No Longer Active Telma Shonda Yung DARVOCET-N 100 100-650 MG TAB PROPOX YPHENE N-APAP 15802459461 No Longer Active Telma Shonda Yung LORTAB 5 5-500 MG TABS 1 to 2 PO Q6hrs prn ACETAMINOPHEN-HYDROCODONE 89391296415 No Longer Active Telma Shonda Yung PREDNISONE 20 MG TAB 3 PO Qd for 2 days PREDNIS ONE 45836870569 No Longer Active Telma Yung NORVASC 5 MG TABS 1 po daily (28samples) AMLODIPINE BESYLATE 98869506442 No Longer Active Telma Shonda Yung CLARINEX 5 MG TABS 1 po daily(28samples) DESLORAT ADINE 21640204791 No Longer Active Telma Yung HYZAAR 25-100 MG TAB 1 PO QD [place] POTASSIUM -HCTZ 83148161167 No Longer Active Samanta Corning Vital Signs Date Name Value Unit Range [...] serum 4.0 g/dL Clinical L[facility] Chemistry sodium, serum 139 mmol/L [...] mg/dL Encounters Code Encounter Date Provider Facility CPT-59579 Ofc Vst, Est Level III 20:00:36 GRAVEL HAULER Telma Karl Yung DO, FACP CPT-82219 Ofc Vst, Est Level III 16:08:14 GRAV[facility] HAULER Telmahazel Yung DO, FACP CPT-09566 Ofc Vst, Est Level III 19:59:04 CDT Telma S miya Yung DO, FACP CPT-67493 Ofc Vst, Est Level III 10:08:10 CDT Telma S miya Yung DO, FACP CPT-03684 Ofc Vst, Est Level III 16:26:58 CDT Telma S miya Yung DO, FACP CPT-65564 Ofc Vst, Est Level III 14:34:34 CDT Telma S miya Yung DO, FACP CPT-59549 Ofc Vst, Est Level IV 14:11:18 CDT Telma Yung [facility] CPT-28162 Ofc Vst, Est Level IV 11:04:19 CDT Telmahazel Yung DO, FACP CPT-53484 Ofc Vst, Est Level III 11:34:48 CDT Telma S miya Carrascoi Karl Yung, DO, FACP CPT-92703 Ofc Vst, Est Level III 15:11:55 GRAVEL HAULER Telma S miya Barajas Yung, DO, FACP CPT-36091 Ofc Vst, Est Level IV 11:27:44 GRAVEL HAULER Telma Francia Barajas Yung, DO, FACP CPT-93646 Ofc Vst, Est Level IV 11:22:00 CDT Telma Francia Carrascoi Karl Yung, DO, FACP CPT-68129 Ofc Vst, Est Level IV 13:59:55 CDT Telma Francia Carrascoi Karl Yung, DO, FACP CPT-72622 Ofc Vst, Est Level IV 11:50:41 CDT Telma Francia Carrascoi Karl Yung, DO, FACP CPT-79954 Ofc Vst, Est Level IV 14:38:12 GRAVEL HAULER Telma Francia Barajas Yung, DO, FACP CPT-59054 Ofc Vst, Est Level V 14:16:09 GRAVEL HAULER Telma Charlesner Telma S Yung, DO, FACP CPT-80226 Ofc Vst, Est Level IV 14:05:44 CDT Telma Francia Barajas Yung, DO, FACP CPT-55853 Ofc Vst, Est Level IV 14:28:47 CDT Telma Francia Carrascoi S Yung, DO, FACP CPT-59088 Ofc Vst, Est Level III 14:56:13 CDT Telma S miya Carrascoi S Yung, DO, FACP CPT-54476 Ofc Vst, Est Level I 11:02:26 CDT Telmahazel Carrascoi S Yung, DO, FACP CPT-17744 Ofc Vst, Est Level IV 14:35:35 GRAVEL HAULER Telma Francia Charlesner Telma S Yung, DO, FACP CPT-87639 Ofc Vst, Est Level IV 14:43:28 GRAVEL HAULER Telma Francia Yung Telma S Yung, DO, FACP CPT-46136 Ofc Vst, Est Level IV 11:24:19 CDT Telma Francia Charlesner Telma S Yung, DO, FACP CPT-77200 Ofc Vst, Est Level IV 15:22:26 CDT Telma Francia givens Yung Telma S Yung, DO, FACP CPT-68263 Ofc Vst, Est Level IV 12:15:20 GRAVEL HAULER Telma Francia givens Yung Telma S Aga, DO, FACP CPT-66365 Ofc Vst, Est Level IV 10:38:00 GRAVEL HAULER Telma Francia Yung Telma S Yung, DO, FACP CPT-06245 Ofc Vst, Est Level III 15:52:45 CDT Telma S umyrtlee Yung Telma S Yung, DO, FACP CPT-94131 Ofc Vst, Est Level III 11:12:09 GRAVEL HAULER Telma Karl umyrtlee Yung Telma S Aga, DO, FACP CPT-40632 Ofc Vst, Est Level III 11:46:31 GRAVEL HAULER Telma Karl daphneye Yung Telma S Aga, DO, FACP CPT-96003 Ofc Vst, Est Level III 14:12:37 CDT Telma S uzanne Aga Telma S Aga, DO, FACP CPT-81613 Ofc Vst, Est Level III 15:12:58 CDT Telma S utosha Yung [facility] CPT-02097 Ofc Vst, Est Level III 14:27:05 CDT Telma S miya Yung [facility] CPT-28368 Ofc Vst, Est Level IV 14:43:20 GRAVEL HAULER Telmahazel Yung [facility] CPT-43223 Ofc Vst, Est Level IV 14:06:31 CDT Telma Francia Yung [facility] CPT-73492 Ofc Vst, Est Level III 15:27:49 CDT Telma S miya Yung [facility] CPT-46802 Ofc Vst, Est Level III 14:13:28 CDT Telma S miya Yung [facility] CPT-29560 Ofc Vst, Est Level IV 11:54:06 GRAVEL HAULER Telmahazel Yung [facility] CPT-21987 Ofc Vst, Est Level II 10:32:16 GRAVEL HAULER Telma Yung [facility] CPT-63885 Ofc Vst, Est Level III 12:06:26 GRAVEL HAULER Telma Karl Yung [facility] CPT-59690 Ofc Vst, Est Level III 10:15:58 CDT Telma S miya Yung [facility] CPT-69230 Ofc Vst, Est Level IV 19:00:53 CDT Telma Francia Yung [facility] CPT-22919 Ofc Vst, Est Level III 14:55:16 GRAVEL HAULER Telma Karl Yung [facility] CPT-24658 Ofc Vst, Est Level IV 17:39:50 GRAVEL HAULER Telmahazel Yung [facility] CPT-89292 Ofc Vst, Est Level IV 17:56:34 CDT Telma Francia Yung [facility] CPT-70515 Ofc Vst, Est Level III 19:26:05 CDT Telma Karl Charlesner [facility] CPT-06644 Ofc Vst, Est Level III 19:13:03 CDT Telma S miya Yung [facility] CPT-43133 Ofc Vst, Est Level IV 17:45:10 CDT Telmahazel Yung [facility] CPT-27776 Ofc Vst, Est Level III 14:17:48 CDT Telma Karl miya Yung [facility] CPT-40824 Ofc Vst, Est Level III 15:13:37 CDT Telma S miya Yung [facility] CPT-26225 Ofc Vst, Est Level II 16:16:07 GRAVEL HAULER Telma Yung [facility] CPT-23142 Ofc Vst, New Level IV 10:06:31 GRAVEL HAULER Telma Yung [facility] Procedures Code Procedure Name Date Entry Date Standard Desc ription CPT-G0439 Medicare Annual Wellness Visit 20:22:32 CDT CPT-G8446 E-Prescribing not done due to controlled substance 13:39:34 GRAVEL HAULER CPT-G0439 Medicare Annual Wellness Visit 13:39:34 GRAVEL HAULER CPT-G8446 E-Prescribing not done due to controlled substance 16:26:58 CDT CPT-G8445 E-Prescribing Not sent due to no medicat ion given 14:34:34 CDT CPT-G8445 E-Prescribing Not sent due to no medicat ion given 17:02:52 GRAVEL HAULER CPT-G0438 Medicare Annual Wellness Visit Initial 1 17:02:52 GRAVEL HAULER
--- OUTSIDE RECORDS SUMMARY | 2019-09-18 12:41 | XMS REPORT | Clinical Summary ---
Author Author User, Lisseth Salvador Organization [facility] Address Unknown Phone Unavailable Allergies, [...] Torticollis, unspecified EDEMA LEG 782.3 Active Telma Yugn Edema MUSCLE PAIN 729.1 Resolved Telma Yung [...] Yung Postsurgical aortocoronary bypass status CORONARY ATHEROSCLEROSIS, [place]-PAIUTE VESSEL 414.01 Active Telma Yung Coronary atherosclerosis of tangirnaq yesenia nary artery OSTEOPOROSIS 733.00 Resolved Telma Yung Osteoporosis, unspecified OSTEOPOROSIS NEC 733.09 Active Telma cornelius Other osteoporosis HEMATOCHEZIA 578.1 Resolved Telma Yung Blood in stool WEIGHT GAIN, ABNORMAL 783.1 Active Telma Jacob Abnormal weight gain BRONCHITIS, ACUTE 466.0 Resolved Telma lozano Acute bronchitis Medication List Medication Instructions Start Date Stop Date Generic Name NDC Status Provider Patient Instruction ANUSOL-HC 25 MG SUPPOSITORY 1 [place] TID prn HYDROCORTISONE SKYLER (RECTAL) 33658463648 Active Craole Fisher VITAMIN D3 31810 UNIT CAPS 1 PO twice a week. C HOLECALCIFEROL 21983359074 Active Telma Yung ZOFRAN ODT 8 MG TBDP 1 PO Q6hrs prn nausea ONDA NSETRON 17624274541 No Longer Active Telma Yung ADVAIR DISKUS 100-50 MCG/DOSE MISC 1 puff BID /05 FLUTICASONE-SALMETEROL 94329469104 No Longer Active Telma Yung CEFDINIR 300 MG CAPS 1 PO BID CEFDINIR 3657781 0900 No Longer Active Telma Yung METFORMIN HCL 500 MG TABS 1 PO every day METFOR MIN HCL 85186528342 No Longer Active Telma Yung FLAX SEED OIL CAPS 1 PO daily FLAXSEED (LINSEED) CAPS 11 710786878 Active Telma Yung HYDROCODONE-ACETAMINOPHEN 5-325 MG TABS 1 PO TID prn HYDROCODONE-ACETAMINOPHEN 89457859393 Active Telma Yung TOPROL XL 100 MG TAB CR 1/2 PO DAILY TOPROL XL 100 MG TAB CR 37383558793 Active Telma Yung METOPROLOL TARTRATE 25 MG TABS 1/2 PO QAM METOP ROLOL TARTRATE 04611278916 No Longer Active Telmahazel uYng LOVASTATIN 40 MG TABS 2 po daily LOVASTATIN 303258714 06 Active Telma Shonda Yung ANUSOL-HC 25 MG SUPPOSITORY 1 NJ TID prn HYDROCORTISONE SKYLER (RECTAL) 52349018956 No Longer Active Telmahazel Yung METAMUCIL POWD 30 minutes before meals PSYLLIU M POWD 67968185567 No Longer Active Telma Shonda Yung ASPIRIN 81 MG CHEW TAB 2 PO QD ASPIRIN 85976689014 Activ e Telmahazel Yung ASPIRIN 81 MG TAB 1 PO daily ASPIRIN 79552935833 No L onger Active Telmahazel Yung LIPITOR 40 MG TAB 1 PO Daily ATORVASTATIN CALCIUM 46430927479 No Longer Active Samanta James FENOFIBRATE 54 MG TABS 1 PO DAILY FENOFIBRATE 6088256 1110 Active Telmahazel Yung FISH OIL 1000 MG CAPS 1 PO daily OMEGA-3 FATTY ACIDS 743 44427769 Active Telma Shonda Yung LOVASTATIN 20 MG TABS 3 PO daily for cholesterol L OVASTATIN 74571787556 No Longer Active Telmahazel Yung AMBIEN 5 MG TAB 1 PO QHS ZOLPIDEM TARTRATE 0818756993 4 Active Telma Shonda Yung ZOFRAN ODT 8 MG TBDP 1 PO Q6hrs prn ONDANSETRON 97198085022 No Longer Active Emmanuel Vidal LASIX 20 MG TAB 1 PO QD FUROSEMIDE 39498988394 Active Telma Shonda Yung RETIN-A 0.025 % CREA Apply to facial lesions daily 201 03/11/26 TRETINOIN 79306751530 No Longer Active Telmahazel Yung LASIX 20 MG TAB 1 PO prn foot swelling FUROSEM ROSENDO 50101508038 No Longer Active Telma Shonda Yung KLOR-CON M20 CR-TABS 1 PO daily POTASS IUM CHLORIDE MIGUEL CR CR-TABS 81559694045 Active Telma Yung LORAZEPAM 0.5 MG TAB 1 PO QID prn LORAZEPAM 08418189414 Active Samanta James NETTI-POT rinse nasal pasageways daily after sinus infecti on treated NETTI-POT No Longer Active Telma Yung MOBIC 15 MG TABS 1 PO daily MELOXICAM 6897724341 0 No Longer Active Telma Yung CLARITIN 10 MG TAB 1 PO daily LORATADINE 48165814819 Active Telma Yung RENOVA 0.02 % CREA Apply to facial lesions daily prn TRETINOIN (FACIAL WRINKLES) 59379855047 No Longer Active Telma Yung CIPRO 250 MG TABS 1 PO BID CIPROFLOXACIN HCL 66 214941655 No Longer Active Telma RAMÍREZ NASAL SPRAY (DEXAMETHASONE, GENTAMICIN, SA LINE) 2 puffs each nostril TID for [address] RAMÍREZ NASAL SP RAY (DEXAMETHASONE, GENTAMICIN, SALINE) No Longer Active Telma Yung AFRIN NASAL SPRAY 0.05 % SOLN as directed for 2 days only 6 OXYMETAZOLINE HCL 99302858717 No Longer Active Telma Yung LOTREL 5-10 MG CAPS 1 PO daily for BP AML ODIPINE BESY-BENAZEPRIL HCL 20232785059 No Longer Active Telma Yung CHLORPHENIRAMINE MALEATE 4 MG TABS 1 PO Q6hrs prn for cold 03/17 CHLORPHENIRAMINE MALEATE 82283588779 No Longer Active Telma SERRA'S NASAL SPRAY (DEXAMETHASONE, GENTAMICIN, SA LINE) 2 puffs each nostril TID for [address] RAMÍREZ NASAL SP RAY (DEXAMETHASONE, GENTAMICIN, SALINE) No Longer Active Telma Yung LEVAQUIN 500 MG TAB 1 PO QD LEVOFLOXACIN 67326 841673 No Longer Active Telma Shonda Yung FLEXERIL 10 MG TAB 1 PO QHS CYCLOBENZAPRINE H CL 60081220804 No Longer Active Telma Shonda Yung PREDNISONE 20 MG TAB 2 pills at once for 3 days then 1 pill daily for 3 days PREDNISONE 59356823710 No Longer Active Telma Dalia Yung MUCINEX 600 MG TB12 1 PO BID for 5 days GUAIFEN ESIN 30564884420 No Longer Active Telma Shonda Yung PREDNISONE 20 MG TAB 2 PO daily for 4 days PRED NISONE 54995364613 No Longer Active Telma Shonda Yung LEVAQUIN 500 MG TABS 1 PO daily for 7 days LEVO FLOXACIN 50243938087 No Longer Active Telma Shonda Yung PREDNISONE 20 MG TAB 1 Po daily for 4 days PRED NISONE 81144447365 No Longer Active Telma Shonda Yung BACTRIM DS 800-160 MG TAB 1 PO BID for 7 days TRIMETHOPRIM-SULFAMETHOXAZOLE 79195623942 No Longer Active Telmahazel cornelius LISINOPRIL-HYDROCHLOROTHIAZIDE 20-25 MG TABS 1 PO daily 0 LISINOPRIL-HYDROCHLOROTHIAZIDE 83855541726 Active Telmahazel cornelius RENOVA 0.05 % CREA apply to affected areas prn TRETINOIN (FACIAL WRINKLES) 14230872525 No Longer Active Telmahazel Yung VALIUM 2 MG TABS 1/2 to 1 PO Q6hrs prn DIAZEPAM 80969146049 No Longer Active Telma Shonda Yung QUININE SULFATE 325 MG CAPS 1 PO QHS prn leg cramps 20 09/14/03 QUININE SULFATE 46387741144 No Longer Active Telma Shonda Yung LORTAB 5 5-500 MG TABS 1 to 2 PO Q6hrs prn tooth pain ACETAMINOPHEN-HYDROCODONE 45632327320 No Longer Active Telma Shonda Yung LORTAB 5 5-500 MG TABS 1 to 2 PO Q6hrs prn ACETAMINOPHEN-HYDROCODONE 64051291657 No Longer Active Telma Shonda Yung ANAYELI 180 MG TABS 1 PO QD FEXOFENADINE HCL 5 1423856047 No Longer Active Telma Shonda Yung RONDEC DM 12.5-4-15 MG/5ML SYRP 5 cc PO QID prn 05/05 [id number] 27691577390 No Longer Active Z Z RENOVA 0.05 % CREA apply to affected areas TRETINOIN (FACIAL WRINKLES) 60115866276 No Longer Active Telma Shonda Yung ZITHROMAX Z-IMELDA 250 MG TABS as directed AZITHRO MYCIN 31551094082 No Longer Active Samanta James SALICYLIC ACID POWD use as directed SALICYLIC A HARIS 36166886666 No Longer Active Telma Shonda Yung XENICAL 120 MG CAPS 1 po BID ORLISTAT 30438362 201 No Longer Active Telmahazel Yung GLUCOSAMINE MSM COMPLEX TABS 1 PO BID prn [id number] 02375737123 No Longer Active Telma Shonda cornelius CRESTOR 5 MG TABS Take 1/2 pill of the 10mg tab daily, hol d while on Biaxin ROSUVASTATIN CALCIUM 14874023177 No Longer Active Min john Yung ZITHROMAX Z-IMELDA 250 MG TABS as directed AZITHRO MYCIN 46393534290 No Longer Active Telma Shonda Yung ZITHROMAX Z-IMELDA 250 MG TABS as directed AZITHRO MYCIN 22526844287 No Longer Active Telma Shonda Yung LIDEX 0.05 % CREA apply to aa BID FLUOCINONIDE 89861582184 No Longer Active Telma Shonda Yung BIAXIN XL IMELDA 500 MG TB24 2 PO QAM CLARITHROM YCIN 62420786177 No Longer Active Telma Shonda Yung CLARINEX 5 MG TABS 1 po daily DESLORATADINE 23428 335411 No Longer Active Telma Shonda Yung VIVACTIL 5 MG TABS 1 pO QHS for snoring PROTRIP TYLINE HCL 51135452172 No Longer Active Telma Shonda Yung BENTYL 10 MG CAPS 1 po tid DICYCLOMINE HCL 0006 1577590 No Longer Active Telma Shonda Yung CALCIUM 1500 MG TAB CALCIUM CARBONATE 97346115469 No Longer Active Telma Shonda Yung SOY 40 MG TABS SOY ISOFLAVONE 99833676 108 No Longer Active Telma Shonda Yung FISH OIL 1000 MG CAPS OMEGA-3 FATTY AC IDS 15525409253 No Longer Active Telma Shonda Yung ANUSOL-HC 25 MG SUPP bid prn HYDROCORTISONE ACETATE 58025211420 No Longer Active Telma Shonda Yung GARLIC 500 MG TABS 1 PO BID GARLIC 070665392 78 No Longer Active Telma Shonda Yung PREDNISONE 20 MG TABS 3 po today and 3 po tomorrow 200 07/09/17 PREDNISONE 11193395880 No Longer Active Telma Shonda Yung LORTAB 5 5-500 MG TABS 1-2 po q 4-6 hrs. prn pain 2004 HYDROCODONE-ACETAMINOPHEN 40721003256 No Longer Active Telma Shonda Yung NORVASC 5 MG TABS 1 po qd AMLODIPINE BESYLATE 6084058091 0 No Longer Active John Roque CLARINEX 5 MG TABS DESLORATADINE 45268 286750 No Longer Active Telma Shonda Yung PYRIDIUM 100 MG TAB 1 PO BID for 2 days only 1 PHENAZOPYRIDINE HCL 91111667417 No Longer Active Telma Shonda Yung PALGIC 4 MG TABS 1 po daily CARBINOXAMINE PEDRO LUIS TE 33684326116 No Longer Active Telma Shonda Yung CIPRO XR 500 MG TB24 1 PO QD for 3 days C IPROFLOX HCL- CIPRO BETAINE 51559457987 No Longer Active Telma Shonda Yung PALGIC 4 MG TABS 1 PO QD CARBINOXAMINE PEDRO LUIS TE 49573356700 No Longer Active Telma Shonda Yung CLARINEX 5 MG TABS 1 PO QD DESLORATADINE 17060 599021 No Longer Active Telma Shonda Yung ZYRTEC 10 MG TAB 1 PO QD CETIRIZINE HCL 701306 24682 No Longer Active Telma Shonda Yung PREDNISONE 20 MG TABS 3 po x today and tomorrow 09/08 PREDNISONE 15572018336 No Longer Active Telma Shonda Yung HYDROCHLOROTHIAZIDE 25 MG TABS 1 po qd when b/r unavailable 2003 HYDROCHLOROTHIAZIDE 56369056592 No Longer Active Telma Dalia Yung COZAAR 100 MG TABS 1 po qd when b/r unavailable 08/22 LOSARTAN POTASSIUM 86901811042 No Longer Active Telma Shonda Yung DARVOCET-N 100 100-650 MG TAB PROPOX YPHENE N-APAP 36075063644 No Longer Active Telma Shonda Yung LORTAB 5 5-500 MG TABS 1 to 2 PO Q6hrs prn ACETAMINOPHEN-HYDROCODONE 69714918549 No Longer Active Telma Yung PREDNISONE 20 MG TAB 3 PO Qd for 2 days PREDNIS ONE 50721189549 No Longer Active Telma Shonda Yung NORVASC 5 MG TABS 1 po daily (28samples) AMLODIPINE BESYLATE 88087333235 No Longer Active Telma Shonda Yung CLARINEX 5 MG TABS 1 po daily(28samples) DESLORAT ADINE 24259113942 No Longer Active Telma Shonda Yung HYZAAR 25-100 MG TAB 1 PO QD LOSARTAN POTASSIUM -HCTZ 50545564772 No Longer Active Samanta James Vital Signs Date Name Value Unit Range Description blood pressure, diastolic - 8462-4 86 mm[Hg] BP bermeo blood pressure, systolic - 8480-6 158 mm[Hg] BP sys pulse rate E&M - 8867-4 72 /min H eart rate respiratory rate E&M - 9279-1 14 /min Resp rate temperature E&M 98.6 [degF] Body temp erature blood pressure, diastolic - 8462-4 86 mm[Hg] [...] temperature E&M 98.6 [degF] Body temp erature Diagnostic Results Date Name Value Unit Range [...] hematocrit, blood 46 % Clinical Lists Update: CMP,CHOL,TRIG,HGA 1C - Chemistry Estimated Glomerular Filtration Rate (calc) 61 mL/ min/1.73m2 glucose, plasma fasting 151 mg/dL anion gap, serum 11 sodium, serum 135 mmol/L triglyceride, serum, fasting 167 mg/dL bilirubin, serum, total 0.6 mg/dL alanine aminotransferase (SGPT), serum 12 U/L aspartate aminotransferase (SGOT), serum 13 U/L protein, total, serum 6.7 g/dL potassium, serum 3.9 mmol/L hemoglobin A1C, blood, as % of total hemoglobin 7.3 % creatinine, serum 0.9 mg/dL carbon dioxide, venous blood 30.0 mmol/L cholesterol, serum 201 mg/dL chloride, serum 98 mmol/L calcium, serum 9.6 mg/dL urea nitrogen, blood 33 mg/dL alkaline phosphatase, serum 56 U/L albumin, serum 4.1 g/dL Clinical Lists Update: CMP,FLP [facility] - Chemistry alkaline phosphatase, serum 41 U/L albumin, serum 4.0 g/dL calcium, serum 9.3 mg/dL chloride, serum 103 mmol/L cholesterol, serum 168 mg/dL carbon dioxide, venous blood 13 mmol/L creatinine, serum 0.9 mg/dL HDL cholesterol, serum 43.0 mg/dL LDL cholesterol, serum 98 mg/dL potassium, serum 4.2 mmol/L protein, total, serum 6.6 g/dL aspartate aminotransferase (SGOT), serum 14 U/L alanine aminotransferase (SGPT), serum 13 U/L bilirubin, serum, total 0.5 mg/dL triglyceride, serum, fasting 137 mg/dL sodium, serum 139 mmol/L anion gap, serum 13 cholesterol/HDL ratio, serum, percent 3.9 glucose, plasma fasting 119 mg/dL Estimated Glomerular Filtration Rate (calc) 63 mL/ min/1.73m2 urea nitrogen, blood 42 mg/dL Clinical Lists Update: CMP,FLP,HgA1c,Chapo roalbumin - Chemistry albumin, serum 4.0 g/dL alkaline phosphatase, serum 49 U/L urea nitrogen, [...] serum 9 cholesterol/HDL ratio, serum, percent 3.5 Estimated Glomerular Filtration Rate (calc) 56 mL/ min/1.73m2 glucose, plasma fasting 129 mg/dL Clinical Lists Update: CMP,FLP,HgA1c,[place] roalbumin - Urinalysis microalbumin, urine, semiquantitative 1.0 mg/dL Encounters Code Encounter Date Provider Facility CPT-00754 Ofc Vst, Est Level III 14:52:43 CDT Telma S daphneye Yung Telma S Aga, DO, FACP CPT-60947 Ofc Vst, Est Level III 20:00:36 NURSE EDUCATOR Telam S rosaskatherine Aga Telma S Aga, DO, FACP CPT-11668 Ofc Vst, Est Level III 16:08:14 NURSE EDUCATOR Telma S miya Yung, DO, FACP CPT-70961 Ofc Vst, Est Level III 19:59:04 CDT Telma S miya Carrascoi Karl Yung DO, FACP CPT-16312 Ofc Vst, Est Level III 10:08:10 CDT Telma S miya Carrascoi S Aga, DO, FACP CPT-60478 Ofc Vst, Est Level III 16:26:58 CDT Telma S miya Carrascoi Karl Yung, DO, FACP CPT-38948 Ofc Vst, Est Level III 14:34:34 CDT Telma S miya Yung DO, FACP CPT-52441 Ofc Vst, Est Level IV 14:11:18 CDT Telma Feldman tosha Yung [facility] CPT-48299 Ofc Vst, Est Level IV 11:04:19 CDT Telma Francia Yung DO, FACP CPT-40096 Ofc Vst, Est Level III 11:34:48 CDT Telma S miya Yung DO, FACP CPT-17541 Ofc Vst, Est Level III 15:11:55 NURSE EDUCATOR Telma S miya Yung Telma S Yung, DO, FACP CPT-44025 Ofc Vst, Est Level IV 11:27:44 NURSE EDUCATOR Telma Francia Carrascoi S Yung, DO, FACP CPT-90902 Ofc Vst, Est Level IV 11:22:00 CDT Telma Francia Carrascoi S Yung, DO, FACP CPT-04455 Ofc Vst, Est Level IV 13:59:55 CDT Telma Francia Carrascoi S Yung, DO, FACP CPT-22115 Ofc Vst, Est Level IV 11:50:41 CDT Telma Francia Carrascoi S Yung, DO, FACP CPT-78765 Ofc Vst, Est Level IV 14:38:12 NURSE EDUCATOR Telma Francia Carrascoi S Yung, DO, FACP CPT-48655 Ofc Vst, Est Level V 14:16:09 NURSE EDUCATOR Telmahazel Carrascoi S Yung, DO, FACP CPT-68659 Ofc Vst, Est Level IV 14:05:44 CDT Telma Francia Carrascoi S Yung, DO, FACP CPT-97758 Ofc Vst, Est Level IV 14:28:47 CDT Telma Francia Carrascoi S Yung, DO, FACP CPT-21531 Ofc Vst, Est Level III 14:56:13 CDT Telma S miya Carrascoi S Yung, DO, FACP CPT-34352 Ofc Vst, Est Level I 11:02:26 CDT Telma Gaby Yung Telma S Yung, DO, FACP CPT-60680 Ofc Vst, Est Level IV 14:35:35 NURSE EDUCATOR Telma Francia Yung Telma S Yung, DO, FACP CPT-98028 Ofc Vst, Est Level IV 14:43:28 NURSE EDUCATOR Telma Francia Charlesner Telma S Aga, DO, FACP CPT-45256 Ofc Vst, Est Level IV 11:24:19 CDT Telma Fracnia givens Yung Telma S Aga, DO, FACP CPT-31884 Ofc Vst, Est Level IV 15:22:26 CDT Telma Francia givens Aga Telma S Aga, DO, FACP CPT-85951 Ofc Vst, Est Level IV 12:15:20 NURSE EDUCATOR Telma Francia givens Aga Telma S Aga, DO, FACP CPT-41002 Ofc Vst, Est Level IV 10:38:00 NURSE EDUCATOR Telma Francia givens Aga Telma S Aga, DO, FACP CPT-68820 Ofc Vst, Est Level III 15:52:45 CDT Telma S elbertnikakatherine Carrascoi S Aga, DO, FACP CPT-26215 Ofc Vst, Est Level III 11:12:09 NURSE EDUCATOR Telma Karl holliday Aga Telma S Aga, DO, FACP CPT-90622 Ofc Vst, Est Level III 11:46:31 NURSE EDUCATOR Telma Karl miya Carrascoi S Aga, DO, FACP CPT-44471 Ofc Vst, Est Level III 14:12:37 CDT Telma S elbertmyrtledenisse Yung Telma Karl Aga, DO, FACP CPT-46478 Ofc Vst, Est Level III 15:12:58 CDT Telma S miya Yung [facility] [place] CPT-60731 Ofc Vst, Est Level III 14:27:05 CDT Telma S miya Yung [facility] [place] CPT-08094 Ofc Vst, Est Level IV 14:43:20 NURSE EDUCATOR Telma Feldman tosha Yung [facility] [place] CPT-70156 Ofc Vst, Est Level IV 14:06:31 CDT Telma Feldman tosha Yung [facility] [place] CPT-26197 Ofc Vst, Est Level III 15:27:49 CDT Telma S unikanne Aga [facility] [place] CPT-28690 Ofc Vst, Est Level III 14:13:28 CDT Telma S uzasusane Yung [facility] [place] CPT-12011 Ofc Vst, Est Level IV 11:54:06 NURSE EDUCATOR Telma Francia Yung [facility] [place] CPT-36511 Ofc Vst, Est Level II 10:32:16 NURSE EDUCATOR Telma Francia Yung [facility] [place] CPT-88757 Ofc Vst, Est Level III 12:06:26 NURSE EDUCATOR Telma S elbertzasusane Aga [facility] [place] CPT-31237 Ofc Vst, Est Level III 10:15:58 CDT Telma S uzasusane Aga [facility] [place] CPT-91441 Ofc Vst, Est Level IV 19:00:53 CDT Telma Francia Yung [facility] [place] CPT-64098 Ofc Vst, Est Level III 14:55:16 NURSE EDUCATOR Telma S miya Yung [facility] [place] CPT-88891 Ofc Vst, Est Level IV 17:39:50 NURSE EDUCATOR Telma Francia Yung [facility] [place] CPT-31614 Ofc Vst, Est Level IV 17:56:34 CDT Telma Francia Yung [facility] [place] CPT-73757 Ofc Vst, Est Level III 19:26:05 CDT Telma S miya Yung [facility] [place] CPT-95189 Ofc Vst, Est Level III 19:13:03 CDT Telma S uzasusane Aga [facility] [place] CPT-16240 Ofc Vst, Est Level IV 17:45:10 CDT Telma Feldman tosha Yung [facility] [place] CPT-12670 Ofc Vst, Est Level III 14:17:48 CDT Telma S miya Yung [facility] [place] CPT-74211 Ofc Vst, Est Level III 15:13:37 CDT Telma Yung [facility] [place] CPT-35186 Ofc Vst, Est Level II 16:16:07 NURSE EDUCATOR Telma Yung [facility] [place] CPT-98872 Ofc Vst, New Level IV 10:06:31 NURSE EDUCATOR Telma Yung [facility] Physician [place] Procedures Code Procedure Name Date Entry Date Standard Desc ription CPT-G0439 Medicare Annual Wellness Visit 20:22:32 CDT CPT-G8446 E-Prescribing not done due to controlled substance 13:39:34 NURSE EDUCATOR CPT-G0439 Medicare Annual Wellness Visit 13:39:34 NURSE EDUCATOR CPT-G8446 E-Prescribing not done due to controlled substance 16:26:58 CDT CPT-G8445 E-Prescribing Not sent due to no medicat ion given 14:34:34 CDT CPT-G8445 E-Prescribing Not sent due to no medicat ion given 17:02:52 NURSE EDUCATOR CPT-G0438 Medicare Annual Wellness Visit Initial 1 17:02:52 NURSE EDUCATOR
--- OUTSIDE RECORDS SUMMARY | 2019-09-18 12:41 | XMS REPORT | Clinical Summary ---
Author Author UserLisseth Organization [facility] Address Unknown Phone Unavailable Allergies, Adverse [...] Yung Postsurgical aortocoronary bypass status CORONARY ATHEROSCLEROSIS, [place] PASS VESSEL 414.01 Active Telma Yung Coronary atherosclerosis of [place] yes[place] nary artery OSTEOPOROSIS 733.00 Resolved Telma [...] 1 PO Q6hrs prn nausea ONDA NSETRON 24957893633 No Longer Active Telma Yung ADVAIR DISKUS 100-50 MCG/DOSE MISC 1 puff BID 04/15 FLUTICASONE-SALMETEROL 35559184227 No Longer Active Telma Yung CEFDINIR 300 MG CAPS 1 PO BID CEFDINIR 8436963 0900 No Longer Active Telmahazel Yung METFORMIN HCL 500 MG TABS 1 PO every day METFOR MIN HCL 02527183715 No Longer Active Telmahazel Yung FLAX SEED OIL CAPS 1 PO daily FLAXSEED (LINSEED) CAPS 11 040189511 Active Telmahazel Yung HYDROCODONE-ACETAMINOPHEN 5-325 MG TABS 1 PO TID prn HYDROCODONE-ACETAMINOPHEN 31618160514 Active Telmahazel Yung VITAMIN D3 19989 UNIT CAPS 1 PO every other day CH OLECALCIFEROL 51326015361 Active Telmahazel Yung TOPROL XL 100 MG TAB CR 1/2 PO DAILY TOPROL XL 100 MG TAB CR 74066971774 Active Telmahazel Yung METOPROLOL TARTRATE 25 MG TABS 1/2 PO QAM METOP ROLOL TARTRATE 25159169505 No Longer Active Telma Yung LOVASTATIN 40 MG TABS 2 po daily LOVASTATIN 584200372 06 Active Telmahazel Yung ANUSOL-HC 25 MG SUPPOSITORY 1 OH TID prn HYDROCORTISONE SKYLER (RECTAL) 34887713289 No Longer Active Telma Yung METAMUCIL POWD 30 minutes before meals PSYLLRANI Berger POWD 09859014120 No Longer Active Telma Yung ASPIRIN 81 MG CHEW TAB 2 PO QD ASPIRIN 62479150925 Activ e Telmahazel Yung ASPIRIN 81 MG TAB 1 PO daily ASPIRIN 54238631191 No L onger Active Telmahazel Yung LIPITOR 40 MG TAB 1 PO Daily ATORVASTATIN CALCIUM 90043131654 No Longer Active Samanta James FENOFIBRATE 54 MG TABS 1 PO DAILY FENOFIBRATE 9090452 1110 Active Telmahazel Yung FISH OIL 1000 MG CAPS 1 PO daily OMEGA-3 FATTY ACIDS 743 02948874 Active Telmahazel Yung LOVASTATIN 20 MG TABS 3 PO daily for cholesterol L OVASTATIN 78377577083 No Longer Active Telmahazel Yung AMBIEN 5 MG TAB 1 PO QHS ZOLPIDEM TARTRATE 3145514764 4 Active Telmahazel Yung ZOFRAN ODT 8 MG TBDP 1 PO Q6hrs prn ONDANSETRON 83593486352 No Longer Active Emmanuel Vidal LASIX 20 MG TAB 1 PO QD FUROSEMIDE 12656454113 Active Telmahazel Yung RETIN-A 0.025 % CREA Apply to facial lesions daily 201 03/11/26 TRETINOIN 91090452264 No Longer Active Telmahazel Yung LASIX 20 MG TAB 1 PO prn foot swelling FUROSEM ROSENDO 77898934998 No Longer Active Telma Yung KLOR-CON M20 CR-TABS 1 PO daily POTASS IUM CHLORIDE MIGUEL CR CR-TABS 18552557393 Active Telmahazel Yung LORAZEPAM 0.5 MG TAB 1 PO QID prn LORAZEPAM 79876822890 Active Samanta James NETTI-POT rinse nasal pasageways daily after sinus infecti on treated NETTI-POT No Longer Active Telma Yung MOBIC 15 MG TABS 1 PO daily MELOXICAM 3463488829 0 No Longer Active Telma Yung CLARITIN 10 MG TAB 1 PO daily LORATADINE 98186164912 Active Telmahazel Yung RENOVA 0.02 % CREA Apply to facial lesions daily prn TRETINOIN (FACIAL WRINKLES) 00305948681 No Longer Active Telma Yung CIPRO 250 MG TABS 1 PO BID CIPROFLOXACIN HCL 66 997001671 No Longer Active Telma SERRA'Karl NASAL SPRAY (DEXAMETHASONE, GENTAMICIN, SA LINE) 2 puffs each nostril TID for [address] RAMÍREZ NASAL SP RAY (DEXAMETHASONE, GENTAMICIN, SALINE) No Longer Active Telma Yung AFRIN NASAL SPRAY 0.05 % SOLN as directed for 2 days only 6 OXYMETAZOLINE HCL 72221078949 No Longer Active Telma Yung LOTREL 5-10 MG CAPS 1 PO daily for BP AML ODIPINE BESY-BENAZEPRIL HCL 65924138807 No Longer Active Telma Yung CHLORPHENIRAMINE MALEATE 4 MG TABS 1 PO Q6hrs prn for cold 03/17 CHLORPHENIRAMINE MALEATE 56302808413 No Longer Active Telma RAMÍREZ NASAL SPRAY (DEXAMETHASONE, GENTAMICIN, SA LINE) 2 puffs each nostril TID for [address] RAMÍREZ NASAL SP RAY (DEXAMETHASONE, GENTAMICIN, SALINE) No Longer Active Telma Yung LEVAQUIN 500 MG TAB 1 PO QD LEVOFLOXACIN 92812 694334 No Longer Active Telma Yung FLEXERIL 10 MG TAB 1 PO QHS CYCLOBENZAPRINE H CL 25109255439 No Longer Active Telma Shonda Yung PREDNISONE 20 MG TAB 2 pills at once for 3 days then 1 pill daily for 3 days PREDNISONE 23419215777 No Longer Active Telma Dalia Yung MUCINEX 600 MG TB12 1 PO BID for 5 days GUAIFEN ESIN 72031594308 No Longer Active Telma Shonda Yung PREDNISONE 20 MG TAB 2 PO daily for 4 days PRED NISONE 15431870689 No Longer Active Telma Shonda Yung LEVAQUIN 500 MG TABS 1 PO daily for 7 days LEVO FLOXACIN 93596102497 No Longer Active Telma Shonda Yung PREDNISONE 20 MG TAB 1 Po daily for 4 days PRED NISONE 21402792707 No Longer Active Telma Shonda Yung BACTRIM DS 800-160 MG TAB 1 PO BID for 7 days TRIMETHOPRIM-SULFAMETHOXAZOLE 03538924631 No Longer Active Telma Shonda cornelius LISINOPRIL-HYDROCHLOROTHIAZIDE 20-25 MG TABS 1 PO daily 0 LISINOPRIL-HYDROCHLOROTHIAZIDE 77205629019 Active Telmahazel cornelius RENOVA 0.05 % CREA apply to affected areas prn TRETINOIN (FACIAL WRINKLES) 71013479926 No Longer Active Telmahazel Yung VALIUM 2 MG TABS 1/2 to 1 PO Q6hrs prn DIAZEPAM 49942987830 No Longer Active Telmahazel Yung QUININE SULFATE 325 MG CAPS 1 PO QHS prn leg cramps 09/14/03 QUININE SULFATE 14235354829 No Longer Active Telma Shonda Yung LORTAB 5 5-500 MG TABS 1 to 2 PO Q6hrs prn tooth pain ACETAMINOPHEN-HYDROCODONE 31969402641 No Longer Active Telma Shonda Yung LORTAB 5 5-500 MG TABS 1 to 2 PO Q6hrs prn ACETAMINOPHEN-HYDROCODONE 17467400081 No Longer Active Telma Shonda Yung ANAYELI 180 MG TABS 1 PO QD FEXOFENADINE HCL 5 1613593908 No Longer Active Telma Shonda Yung RONDEC DM 12.5-4-15 MG/5ML SYRP 5 cc PO QID prn 05/05 [id number] 93230170181 No Longer Active Z Z RENOVA 0.05 % CREA apply to affected areas TRETINOIN (FACIAL WRINKLES) 04989062404 No Longer Active Telma Shonda Yung ZITHROMAX Z-IMELDA 250 MG TABS as directed AZITHRO MYCIN 15418480230 No Longer Active Samanta James SALICYLIC ACID POWD use as directed SALICYLIC A HARIS 49762657327 No Longer Active Telma Shonda Yung XENICAL 120 MG CAPS 1 po BID ORLISTAT 34348168 201 No Longer Active Telma Shonda Yung GLUCOSAMINE MSM COMPLEX TABS 1 PO BID prn [id number] 15664410089 No Longer Active Telma Shonda cornelius CRESTOR 5 MG TABS Take 1/2 pill of the 10mg tab daily, hol d while on Biaxin ROSUVASTATIN CALCIUM 90892272648 No Longer Active Min di Shonda Yung ZITHROMAX Z-IMELDA 250 MG TABS as directed AZITHRO MYCIN 16822636774 No Longer Active Telma Shonda Yung ZITHROMAX Z-IMELDA 250 MG TABS as directed AZITHRO MYCIN 94292307140 No Longer Active Telma Shonda Yung LIDEX 0.05 % CREA apply to aa BID FLUOCINONIDE 94250366981 No Longer Active Telma Shonda Aga BIAXIN XL IMELDA 500 MG TB24 2 PO QAM CLARITHROM YCIN 37589174457 No Longer Active Telma Shonda Aga CLARINEX 5 MG TABS 1 po daily DESLORATADINE 82592 355675 No Longer Active Telma Shonda Yung VIVACTIL 5 MG TABS 1 pO QHS for snoring PROTRIP TYLINE HCL 99868827837 No Longer Active Telma Shonda Aga BENTYL 10 MG CAPS 1 po tid DICYCLOMINE HCL 0006 8929089 No Longer Active Telma Shonda Yung CALCIUM 1500 MG TAB CALCIUM CARBONATE 69522887758 No Longer Active Telma Shonda Yung SOY 40 MG TABS SOY ISOFLAVONE 68049456 108 No Longer Active Telma Shonda Yung FISH OIL 1000 MG CAPS OMEGA-3 FATTY AC IDS 99425661009 No Longer Active Telma Shonda Yung ANUSOL-HC 25 MG SUPP bid prn HYDROCORTISONE ACETATE 45989001182 No Longer Active Telma Shonda Yung GARLIC 500 MG TABS 1 PO BID GARLIC 667861344 78 No Longer Active Telma Shonda Yung PREDNISONE 20 MG TABS 3 po today and 3 po tomorrow 200 07/09/17 PREDNISONE 75839845030 No Longer Active Telma Shonda Yung LORTAB 5 5-500 MG TABS 1-2 po q 4-6 hrs. prn pain 2004 HYDROCODONE-ACETAMINOPHEN 35975128039 No Longer Active Telma Shonda Yung NORVASC 5 MG TABS 1 po qd AMLODIPINE BESYLATE 4074237961 0 No Longer Active John Roque CLARINEX 5 MG TABS DESLORATADINE 83602 617453 No Longer Active Telma Shonda Yung PYRIDIUM 100 MG TAB 1 PO BID for 2 days only 1 PHENAZOPYRIDINE HCL 72283023995 No Longer Active Telma Shonda Yung PALGIC 4 MG TABS 1 po daily CARBINOXAMINE PEDRO LUIS TE 06705208986 No Longer Active Telma Shonda Yung CIPRO XR 500 MG TB24 1 PO QD for 3 days C IPROFLOX HCL- CIPRO BETAINE 13606325031 No Longer Active Telma Shonda Yung PALGIC 4 MG TABS 1 PO QD CARBINOXAMINE PEDRO LUIS TE 89008602558 No Longer Active Telma Shonda Yung CLARINEX 5 MG TABS 1 PO QD DESLORATADINE 13234 747317 No Longer Active Telma Shonda Yung ZYRTEC 10 MG TAB 1 PO QD CETIRIZINE HCL 505306 60162 No Longer Active Telma Shonda Yung PREDNISONE 20 MG TABS 3 po x today and tomorrow 09/08 PREDNISONE 09974763530 No Longer Active Telma Shonda Yung HYDROCHLOROTHIAZIDE 25 MG TABS 1 po qd when b/r unavailable 2003 HYDROCHLOROTHIAZIDE 98546835128 No Longer Active Telma Dalia Yung COZAAR 100 MG TABS 1 po qd when b/r unavailable 08/22 [place] POTASSIUM 04796486961 No Longer Active Telma Shonda Yung DARVOCET-N 100 100-650 MG TAB PROPOX YPHENE N-APAP 63933172108 No Longer Active Telma Shonda Yung LORTAB 5 5-500 MG TABS 1 to 2 PO Q6hrs prn ACETAMINOPHEN-HYDROCODONE 81109505075 No Longer Active Telma Shonda Yung PREDNISONE 20 MG TAB 3 PO Qd for 2 days PREDNIS ONE 89945534163 No Longer Active Telma Yung NORVASC 5 MG TABS 1 po daily (28samples) AMLODIPINE BESYLATE 73361298902 No Longer Active Telma Shonda Yung CLARINEX 5 MG TABS 1 po daily(28samples) DESLORAT ADINE 18560520581 No Longer Active Telma Yung HYZAAR 25-100 MG TAB 1 PO QD [place] POTASSIUM -HCTZ 27931331718 No Longer Active Samanta Ludowici Vital Signs Date Name Value Unit Range [...] serum 4.0 g/dL Clinical Lists Update: [facility] Chemistry sodium, serum 139 mmol/L [...] mg/dL Encounters Code Encounter Date Provider Facility CPT-66938 Ofc Vst, Est Level III 20:00:36 [employer] Telma Karl Yung DO, FACP CPT-12528 Ofc Vst, Est Level III 16:08:14 [employer] Telmahazel Yung DO, FACP CPT-87266 Ofc Vst, Est Level III 19:59:04 CDT Telma S miya Yung DO, FACP CPT-65916 Ofc Vst, Est Level III 10:08:10 CDT Telma S miya Yung DO, FACP CPT-82487 Ofc Vst, Est Level III 16:26:58 CDT Telma S miya Yung DO, FACP CPT-37370 Ofc Vst, Est Level III 14:34:34 CDT Telma S miya Yung DO, FACP CPT-57579 Ofc Vst, Est Level IV 14:11:18 CDT Telma Yung [facility] CPT-73595 Ofc Vst, Est Level IV 11:04:19 CDT Telmahazel Yung DO, FACP CPT-46765 Ofc Vst, Est Level III 11:34:48 CDT Telma S miya Carracsoi Karl Yung, DO, FACP CPT-21956 Ofc Vst, Est Level III 15:11:55 [employer] Telma S miya Barajas Yung, DO, FACP CPT-79852 Ofc Vst, Est Level IV 11:27:44 [employer] Telma Francia Barajas Yung, DO, FACP CPT-84486 Ofc Vst, Est Level IV 11:22:00 CDT Telma Francia Carrascoi Karl Yung, DO, FACP CPT-39457 Ofc Vst, Est Level IV 13:59:55 CDT Telma Francia Carrascoi Karl Yung, DO, FACP CPT-15645 Ofc Vst, Est Level IV 11:50:41 CDT Telma Francia Carrascoi Karl Yung, DO, FACP CPT-29682 Ofc Vst, Est Level IV 14:38:12 [employer] Telma Francia Barajas Yung, DO, FACP CPT-14778 Ofc Vst, Est Level V 14:16:09 [employer] Telma Charlesner Telma S Yung, DO, FACP CPT-53011 Ofc Vst, Est Level IV 14:05:44 CDT Telma Francia Barajas Yung, DO, FACP CPT-76376 Ofc Vst, Est Level IV 14:28:47 CDT Telma Francia Carrascoi S Yung, DO, FACP CPT-84689 Ofc Vst, Est Level III 14:56:13 CDT Telma S miya Carrascoi S Yung, DO, FACP CPT-44238 Ofc Vst, Est Level I 11:02:26 CDT Telmahazel Carrascoi S Yung, DO, FACP CPT-15697 Ofc Vst, Est Level IV 14:35:35 [employer] Telma Francia Charlesner Telma S Yung, DO, FACP CPT-44419 Ofc Vst, Est Level IV 14:43:28 [employer] Telma Francia Yung Telma S Yung, DO, FACP CPT-11690 Ofc Vst, Est Level IV 11:24:19 CDT Telma Francia Charlesner Telma S Yung, DO, FACP CPT-87633 Ofc Vst, Est Level IV 15:22:26 CDT Telma Francia givens Yung Telma S Yung, DO, FACP CPT-02962 Ofc Vst, Est Level IV 12:15:20 [employer] Telma Francia givens Yung Telma S Aga, DO, FACP CPT-94498 Ofc Vst, Est Level IV 10:38:00 [employer] Telma Francia Yung Telma S Yung, DO, FACP CPT-68394 Ofc Vst, Est Level III 15:52:45 CDT Telma S umyrtlee Yung Telma S Yung, DO, FACP CPT-56498 Ofc Vst, Est Level III 11:12:09 [employer] Telma Karl umyrtlee Yung Telma S Aga, DO, FACP CPT-38753 Ofc Vst, Est Level III 11:46:31 [employer] Telma Karl daphneye Yung Telma S Aga, DO, FACP CPT-01937 Ofc Vst, Est Level III 14:12:37 CDT Telma S uzanne Aga Telma S Aga, DO, FACP CPT-28580 Ofc Vst, Est Level III 15:12:58 CDT Telma S utosha Yung [facility] CPT-79316 Ofc Vst, Est Level III 14:27:05 CDT Telma S imya Yung [facility] [place] CPT-50060 Ofc Vst, Est Level IV 14:43:20 [employer] Telmahazel Yung [facility] CPT-25787 Ofc Vst, Est Level IV 14:06:31 CDT Telma Francia Yung [facility] CPT-41600 Ofc Vst, Est Level III 15:27:49 CDT Telma S miya Yung [facility] CPT-99791 Ofc Vst, Est Level III 14:13:28 CDT Telma S miya Yung [facility] CPT-25644 Ofc Vst, Est Level IV 11:54:06 [employer] Telmahazel Yung [facility] CPT-92662 Ofc Vst, Est Level II 10:32:16 [employer] Telma Yung [facility] CPT-22543 Ofc Vst, Est Level III 12:06:26 [employer] Telma Karl Yung [facility] CPT-02559 Ofc Vst, Est Level III 10:15:58 CDT Telma S miya Yung [facility] CPT-72542 Ofc Vst, Est Level IV 19:00:53 CDT Telma Francia Yung [facility] [place] CPT-58956 Ofc Vst, Est Level III 14:55:16 [employer] Telma Karl Yung [facility] CPT-54166 Ofc Vst, Est Level IV 17:39:50 [employer] Telmahazel Yung [facility] [place] CPT-81070 Ofc Vst, Est Level IV 17:56:34 CDT Telma Francia Yung [facility] CPT-66685 Ofc Vst, Est Level III 19:26:05 CDT Telma Karl Charlesner [facility] CPT-01357 Ofc Vst, Est Level III 19:13:03 CDT Telma S miya Yung [facility] CPT-45975 Ofc Vst, Est Level IV 17:45:10 CDT Telmahazel Yung [facility] [place] CPT-06958 Ofc Vst, Est Level III 14:17:48 CDT Telma Karl miya Yung [facility] CPT-93596 Ofc Vst, Est Level III 15:13:37 CDT Telma S miya Yung [facility] CPT-01820 Ofc Vst, Est Level II 16:16:07 [employer] Telma Yung [facility] [place] CPT-83960 Ofc Vst, New Level IV 10:06:31 [employer] Telma Yung [facility] [place] Procedures Code Procedure Name Date Entry Date Standard Desc ription CPT-G0439 Medicare Annual Wellness Visit 20:22:32 CDT CPT-G8446 E-Prescribing not done due to controlled substance 13:39:34 [employer] CPT-G0439 Medicare Annual Wellness Visit 13:39:34 [employer] CPT-G8446 E-Prescribing not done due to controlled substance 16:26:58 CDT CPT-G8445 E-Prescribing Not sent due to no medicat ion given 14:34:34 CDT CPT-G8445 E-Prescribing Not sent due to no medicat ion given 17:02:52 [employer] CPT-G0438 Medicare Annual Wellness Visit Initial 1 17:02:52 [employer]
--- OUTSIDE RECORDS SUMMARY | 2019-09-18 12:41 | XMS REPORT | Continuity of Care Document ---
Author Organization Unknown Address Unknown Phone Unavailable Allergies There is no data. Medications There is no data. Problems There is no data. Procedures There is no data. Results Test Result Range Complete blood count (CBC) with automate d white blood cell (WBC) differential - 09/18/19 09:08 Blood leukocytes automated count (number/volume) 7.0 10*3/uL 4.3-11.0 Blood erythrocytes automated count (number/volume) 4.36 10*6/uL 4.35-5.85 Venous blood hemoglobin measurement (mass/volume) 12.6 g/dL 11.5-16.0 Blood hematocrit (volume fraction) 40 % 35-52 Automated erythrocyte mean corpuscular volume 91 [ foz_us] 80-99 Automated erythrocyte mean corpuscular h emoglobin (mass per erythrocyte) 29 pg 25-34 Automated erythrocyte mean corpuscular h emoglobin concentration measurement (mass/volume) 32 g/dL 32-36 Automated erythrocyte distribution width ratio 14. 0 % 10.0- 14.5 Automated blood platelet count (count/volume) 274 10*3/uL 130-400 Automated blood platelet mean volume measurement 9.6 [foz_us] 7.4-10.4 Automated blood neutrophils/100 leukocytes 76 % 42-75 Automated blood lymphocytes/100 leukocytes 17 % 12-44 Blood monocytes/100 leukocytes 6 % 0-12 Automated blood eosinophils/100 leukocytes 0 % 0-10 Automated blood basophils/100 leukocytes 0 % 0-10 Blood neutrophils automated count (number/volume) 5.4 10*3 1.8-7.8 Blood lymphocytes automated count (number/volume) 1.2 10*3 1.0-4.0 Blood monocytes automated count (number/volume) 0. 4 10*3 0.0-1.0 Automated eosinophil count 0.0 10*3/uL 0 .0-0.3 Automated blood basophil count (count/volume) 0.0 10*3/uL 0.0-0.1 Comprehensive metabolic panel - 09/18/19 09:08 Serum or plasma sodium measurement (moles/volume) 143 mmol/L 135-145 Serum or plasma potassium measurement (moles/volume) 4.2 mmol/L 3.6-5.0 Serum or plasma chloride measurement (moles/volume) 107 mmol/L 98-107 Carbon dioxide 26 mmol/L 21-32 Serum or plasma anion gap determination (moles/volume) 10 mmol/L 5-14 Serum or plasma urea nitrogen measurement (mass/volume ) 30 mg/dL 7-18 Serum or plasma creatinine measurement (mass/volume) 1.07 mg/dL 0.60-1.30 Serum or plasma urea nitrogen/creatinine mass ratio 28 NRG Serum or plasma creatinine measurement w ith calculation of estimated glomerular filtration rate 49 NRG Serum or plasma glucose measurement (mass/volume) 174 mg/dL 70-105 Serum or plasma calcium measurement (mass/volume) 8.7 mg/dL 8.5-10.1 Serum or plasma total bilirubin measurement (mass/volu me) 0.4 mg/dL 0.1-1.0 Serum or plasma alkaline phosphatase john surement (enzymatic activity/volume) 54 U/L 40-136 Serum or plasma aspartate aminotransfera se measurement (enzymatic activity/volume) 16 U/L 5-34 Serum or plasma alanine aminotransferase measurement (enzymatic activity/volume) 16 U/L 0-55 Serum or plasma protein measurement (mass/volume) 6.9 g/dL 6.4-8.2 Serum or plasma albumin measurement (mass/volume) 3.8 g/dL 3.2-4.5 CALCIUM CORRECTED 8.9 mg/dL 8.5-10.1 PT panel in platelet poor plasma by coag ulation assay - 09/18/19 09:08 Prothrombin time (PT) in platelet poor plasma by coagu lation assay 14.7 s 12.2-14.7 INR in platelet poor plasma or blood by coagulation as say 1.1 0.8-1.4 Activated partial thromboplastin time (a PTT) in platelet poor plasma bycoagulation assay - 09/18/19 09:08 Activated partial thromboplastin time (a PTT) in platelet poor plasma bycoagulation assay 34 s 24-35 Fibrin D-dimer FEU measurement in platel et poor plasma (mass/volume) - 09/18/19 09:08 Fibrin D-dimer FEU measurement in platelet poor plasma (mass/volume) 0.99 ug/mL 0.00-0.49 Blood lactic acid measurement (moles/vol ume) - 09/18/19 09:08 Blood lactic acid measurement (moles/volume) 0.81 mmol/L 0.50-2.00 Erythrocyte sedimentation rate by kenya gren method - 09/18/19 09:08 Erythrocyte sedimentation rate by westergren method 23 mm 0- 30 Serum ragweed IgE antibody assay - 09/17 09:08 Serum ragweed IgE antibody assay 176 U/L 125-220 PROCALCITONIN (PCT) - 09/18/19 09:08 PROCALCITONIN (PCT) 0.04 ng/mL <0.10 Serum or plasma troponin i.cardiac measu rement (mass/volume) - 09/18/19 09:08 Serum or plasma troponin i.cardiac measurement (mass/v olume) 0.038 ng/mL <0.028 Serum or plasma lithium measurement (mol es/volume) - 09/18/19 09:08 BNP PT 691.2 pg/mL <100.0 Serum or plasma C reactive protein measu rement (mass/volume) - 09/18/19 09:08 Serum or plasma C reactive protein measurement (mass/v olume) 0.97 mg/dL 0.00-0.50 Complete urinalysis with reflex to cultu re - 09/18/19 09:24 Urine color determination YELLOW NRG Urine clarity determination CLEAR NR G Urine pH measurement by test strip 5.0 5-9 Specific gravity of urine by test strip 1.025 1.016-1.022 Urine protein assay by test strip, semi-quantitative 1+ NEGATIVE Urine glucose detection by automated test strip NE GATIVE NEGATIVE Erythrocytes detection in urine sediment by light micr oscopy NEGATIVE NEGATIVE Urine ketones detection by automated test strip NE GATIVE NEGATIVE Urine nitrite detection by test strip NEGATIVE NEGATIVE Urine total bilirubin detection by test strip NEGA TIVE NEGATIVE Urine urobilinogen measurement by automated test strip (mass/volume) 0.2 mg/dL < = 1.0 Urine leukocyte esterase detection by dipstick NEG ATIVE NEGATIVE Automated urine sediment erythrocyte cou nt by microscopy (number/high power field) [HPF] NRG Automated urine sediment leukocyte count by microscopy (number/high power field) RARE NRG Bacteria detection in urine sediment by light microsco py FEW NRG Squamous epithelial cells detection in u rine sediment by light microscopy 2-5 NRG Crystals detection in urine sediment by light microsco py NONE NRG Casts detection in urine sediment by light microscopy NONE NRG Mucus detection in urine sediment by light microscopy NEGATIVE NRG Complete urinalysis with reflex to culture CULTURE PENDING NRG Arterial blood gas measurement - 0 11:50 Blood pCO2 50 mm[Hg] 35-45 Blood pO2 88 mm[Hg] 79-93 Arterial blood bicarbonate measurement (moles/volume) 28 mmol/L 23-27 Arterial blood base excess by calculation 3.2 mmol /L -2.5-2.5 Arterial blood oxygen saturation measurement 98 % 94-100 * Inhaled oxygen flow rate 50% BIPAP NR G Arterial blood pH measurement with patient temperature correction 7.37 7.37-7.43 Arterial blood carbon dioxide, total measurement (mole s/volume) 30.0 mmol/L 21.0-31.0 Body site LEFT RADIAL NRG Assessment of wrist artery patency prior to arterial p uncture POSITIVE NRG Setting of ventilation mode NO NR G Measurement of body temperature 36 NRG Encounters ACCT No. Visit Date/Time Discharge Status Pt. Type Provider Facility Loc./Unit Complaint [id number] 07/07/2012 10:30:00 013 23:59:59 [facility] Outpatient [id number] 09/18/2019 09:24:00 Document Registration
--- NOTE | 2019-09-18 13:03 | Pulmonary Consultation ---
History of Present Illness History of Present Illness Date Seen by Provider: Sep 18, 2019 Time Seen by Provider: 13:00 Date of Admission Allergies and Home Medications Allergies Coded Allergies: Penicillins (Unverified Allergy, Mild, 12/18/08) Home Medications Lisinopril/Hydrochlorothiazide 1 Each Tablet, 1 TAB PO DAILY, (Reported) Lovastatin 20 Mg Tablet, 1 TAB PO HS, (Reported) Past Fgkdijk-Xphyrt-Mwhtba Hx Past Med/Social Hx: Reviewed Nursing Past Med/Soc Hx Patient Social History Alcohol Use: Denies Use Recreational Drug Use: No Smoking Status: Never a Smoker Recent Foreign Travel: No Contact w/Someone Who Travel: No Recent Infectious Disease Expo: No Recent Hopitalizations: No Physical Abuse: No Sexual Abuse: No Seasonal Allergies Seasonal Allergies: No Past Medical History Surgeries: Yes CABG, Hysterectomy Respiratory: No Asthma Cardiac: Yes Coronary Artery Disease, Hypertension Neurological: No Reproductive Disorders: No Genitourinary: No Gastrointestinal: No Musculoskeletal: No Endocrine: No HEENT: No Cancer: Yes Ovarian Psychosocial: No Integumentary: No Blood Disorders: No Family Medical History Reviewed Nursing Family Hx No Pertinent Family Hx Review of Systems Time Seen by Provider: 13:00 Sepsis Event Evaluation Height, Weight, BMI Height: '" Weight: lbs. oz. kg; 32.22 BMI Method: Exam Exam Vital Signs Date Time Temp Pulse Resp B/P (MAP) Pulse Ox O2 Delivery O2 Flow Rate FiO2 09/18/19 12:53 71 09/18/19 12:13 36.0 09/18/19 12:09 36.6 88 94 36 09/18/19 12:00 67 19 122/79 (93) 94 NIV Bilevel 50.00 09/18/19 11:45 70 25 131/66 (87) 99 NIV Bilevel 50.00 09/18/19 11:35 36.0 09/18/19 11:18 36.6 71 16 141/105 (117) 98 NIV Bilevel 09/18/19 11:11 89 28 99 80.00 09/18/19 11:08 71 16 141/105 (117) 98 NIV Bilevel 50.00 09/18/19 10:34 83 16 129/59 (82) 100 NIV Bilevel 09/18/19 08:32 36.6 88 14 186/78 (114) 94 Nasal Cannula 4.00 Height & Weight Height: '" Weight: lbs. oz. kg; 32.22 BMI Method: General Appearance: WD/WN, Moderate Distress HEENT: PERRL/EOMI, Pharynx Normal Neck: Non Tender, Supple Respiratory: Crackles (Bilateral to mid lungs do) Cardiovascular: No Murmur, Tachycardia Capillary Refill: Less Than 3 Seconds Extremity: Normal Range of Motion, Non Tender, Pedal Edema (3+ to level of knee bilateral) Neurologic/Psychiatric: Alert, Oriented x3 Results Lab Laboratory Tests 09/18/19 09:08 Assessment/Plan Assessment/Plan Acute respiratory failure r/o COVID -BiPAP -Oxygen CHF - LATONYA Sidhu DO Sep 18, 2019 13:03
--- OUTSIDE RECORDS SUMMARY | 2019-09-18 13:35 | XMS REPORT | Continuity of Care Document ---
[...] Status Pt. Type Provider Facility Loc./Unit Complaint [id number] 07/07/2012 10:30:00 013 23:59:59 [facility] Outpatient [id number] 09/18/2019 09:24:00 Document Registration
[2019-09-18] MEDS: RT-ALBUTEROL INHALER HFA (VENTOLIN HFA) 18 GM IH SCH ×3 (13:42→22:09)
[2019-09-18] MEDS ORDERED: RX-ALBUTEROL INHALER (VENTOLIN HFA) 18 GM IH SCH (14:00)
[2019-09-18] MEDS ORDERED: GLYB2.5T4 PO (15:10)
[2019-09-18] MEDS ORDERED: CHOL10007 PO (15:10)
[2019-09-18] MEDS ORDERED: ASPI-983 PO (15:10)
[2019-09-18] MEDS ORDERED: ETD200C PO (15:10)
[2019-09-18] MEDS ORDERED: AMLO5TAB9 PO (15:10)
[2019-09-18] MEDS ORDERED: FENO54TA PO (15:10)
[2019-09-18] MEDS ORDERED: LISI1TAB26 PO (15:10)
[2019-09-18] MEDS ORDERED: ATOR10TA66 PO (15:10)
[2019-09-18] MEDS ORDERED: MTP100TCR PO (15:10)
[2019-09-18] MEDS ORDERED: HYDR-3923 PO (15:10)
[2019-09-18] MEDS ORDERED: FLAX10004 PO (15:10)
--- NOTE | 2019-09-18 15:11 | NUR ---
UNABLE TO SPEAK WITH THE PT AT THIS TIME- I TRIED TO CALL HER SON BRIANNA AND THERE WAS NO ANSWER. I DID GET A MED LIST FROM DR. BARRETT OFFICE- I USED THAT WITH THE EXT MED HISTORY TO COMPLETE THE MED REC ON THE LIST FROM HER PCPS OFFICE FUROSEMIDE 20MG IS LISTED BUT IT HAS NOT BEEN FILLED SINCE FEBRUARY 2019 #90. KLOR-CON 20MEQ IS ALSO LISTED BUT WHEN I CALLED [employer] [facility]IL ORDER THEY DO NOT HAVE ANY CLAIMS FROM MAILORDER OR RETAIL SINCE 2018. FOR THOSE REASONS I WILL NOT INCLUDE THESE ON THE MED REC AT THIS TIME. OTC MEDS: ASPIRIN FLAX SEED VIT D (MED LIST SAYS TWICE WEEKLY) WHEN I AM ABLE TO SPEAK WITH THE PT I WILL UPDATE THE MED REC AND NOTES NEEDED Addendum: 09/25/19 at 0908 by VIDHYA OROZCO [facility] SPOKE WITH THE PT TODAY AND UPDATED THE MED REC. PT SAID SHE IS NO LONGER TAKING ETODOLAC, LASIX, POTASSIUM, FLAXSEED AND VIT D NONE OF THE ABOVE MEDICATIONS HAD BEEN ORDERED WHILE THE PT HAS BEEN ON THE FLOOR. PT IS MOVING DOWN TO ARU TODAY- I REMOVED THE ABOVE MEDS ON THE ARU ACCOUNT SO THOSE ARE NOT CONTINUED ON THE FLOOR AND FOR DISCHARGE PURPOSES
[2019-09-18] MEDS ORDERED: LORazepam INJ 2 MG/ML (ATIVAN) VIAL IVP PRN (15:45)
[2019-09-18] MEDS: FUROSEMIDE 40 MG/4 ML INJ (LASIX) IVP SCH (16:04)
[2019-09-18] MEDS ORDERED: ENOXAPARIN 40 MG/0.4 ML (LOVENOX) SYR SC SCH ×2 (16:45→17:30)
--- NOTE | 2019-09-18 16:52 | History & Physical-Hospitalist ---
History of Present Illness HPI/Chief Complaint Chief complaint: acute dyspnea History of present illness: This is an 84-year-old white female clinic patient of mine for nearly 17 years who has a past medical history of bypass surgery with noncompliance with follow-up with cardiology, diabetes mellitus on oral meds, hypertension and severe osteoarthritis who presents to the ER by ambulance after she called them because of worsening shortness of breath. She rarely gets out during this pandemic but she did go and eat at [place] [employer] 2 weeks ago with her [id number]. She has been swab for COVID. Patient appears to have fluid overload with congestive heart failure requiring BiPAP in the ER now weaned down to nasal cannula and has responded well to diuresis. Patient has felt sick for 1 month felt like it would get better. Denies any fever or cough. Source: patient Exam Limitations: no limitations Date Seen 09/18/19 Time Seen by a Provider: 16:45 Attending Physician Telma Yung DO PCP Telma Yung DO Referring Physician Date of Admission Sep 18, 2019 at 10:56 Home Medications & Allergies Home Medications Reviewed patient Home Medication Reconciliation performed by pharmacy medication reconciliations machines technician and/or nursing. Patients Allergies have been reviewed. Allergies Allergies Coded Allergies Penicillins (Unverified Allergy, Mild, 12/18/08) Past Sumkbeb-Ukygse-Bpushf Hx Past Med/Social Hx: Reviewed Nursing Past Med/Soc Hx, Reviewed and Corrections made Patient Social History Marrital Status: Employed/Student: retired Alcohol Use: Denies Use Recreational Drug Use: No Smoking Status: Never a Smoker Recent Foreign Travel: No Contact w/other who traveled: No Recent Hopitalizations: No Recent Infectious Disease Expo: No Seasonal Allergies Seasonal Allergies: No Past Medical History Surgeries: CABG, Hysterectomy Cardiac: Coronary Artery Disease, Hypertension Reproductive: No Musculoskeletal: Arthritis, Chronic Back Pain Endocrine: Diabetes, Non-Insulin dep Cancer: Ovarian History of Blood Disorders: No Family History Reviewed Nursing Family Hx No Pertinent Family Hx Review of Systems Constitutional: see HPI, dizziness, malaise, weakness Respiratory: cough, dyspnea on exertion, short of breath, wheezing Physical Exam Physical Exam Vital Signs Vital Signs - First Documented 09/18/19 09/18/19 08:32 11:35 Temp 36.6 Pulse 88 Resp 14 B/P (MAP) 186/78 (114) Pulse Ox 94 O2 Delivery Nasal Cannula O2 Flow Rate 4.00 FiO2 50 Capillary Refill : Less Than 3 Seconds Height, Weight, BMI Height: '" Weight: lbs. oz. kg; 32.22 BMI Method: General Appearance: No Apparent Distress, Anxious, Chronically ill, Obese Eyes: Right Eye Normal Inspection, Right Eye PERRL HEENT: PERRL/EOMI, Normal ENT Inspection, Pharynx Normal, Moist Mucous Membranes Neck: Full Range of Motion, Normal Inspection, Non Tender Respiratory: Chest Non Tender, Lungs Clear, No Accessory Muscle Use, No Respiratory Distress, Crackles, Decreased Breath Sounds, Wheezing Cardiovascular: Regular Rate, Rhythm, No Edema, No Gallop, No JVD, No Murmur, Normal Peripheral Pulses Gastrointestinal: Normal Bowel Sounds, No Organomegaly, No Pulsatile Mass, Non Tender, Soft Back: Normal Inspection, No CVA Tenderness, No Vertebral Tenderness Extremity: Normal Capillary Refill, Normal Inspection, Normal Range of Motion, Non Tender, No Calf Tenderness, No Pedal Edema Neurologic/Psychiatric: Alert, Oriented x3, No Motor/Sensory Deficits, Normal Mood/Affect, 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 Assessment/Plan Admission Diagnosis Assessment: Acute exacerbation of congestive heart failure CAD previous bypass DM HTN Severe arthritis Plan: Appreciate cardiology and pulmonology assistance Wean oxygen Diuresis Home meds COVID swab pending Admission Status: Inpatient Order (span 2 midnights) Reason for Inpatient Admission: CHF Diagnosis/Problems Diagnosis/Problems (1) Respiratory distress (2) CAD (coronary artery disease) (3) Hx of CABG (4) Diabetes (5) Hypertension (6) Hyperlipidemia (7) Arthritis (8) Hypercapnia (9) BiPAP (biphasic positive airway pressure) dependence (10) Acute heart failure Status: Acute Qualifiers: Heart failure type: unspecified Qualified Codes: I50.9 - Heart failure, unspecified Clinical Quality Measures DVT/VTE Risk/Contraindication: Risk Factor Score Per Nursin RFS Level Per Nursing on Admit: 4+=Very High TELMA YUNG DO Sep 18, 2019 16:52
--- NOTE | 2019-09-18 17:12 | Consultation-Cardiology ---
HPI-Cardiology Cardiology Consultation Date of Consultation 09/18/19 Date of Admission Time Seen by Provider: 17:08 Indication: shortness of breath HPI 84-year-old lady with history of coronary artery disease, was having increasing shortness of breath, admitted with acute respiratory failure, patient was on Vapotherm currently feeling better diuresed after receiving 40 mg of Lasix. She denied any chest pain. Had extensive cardiac history but no recent cardiac workup, she was last seen Dr. Monk in 2014. No palpitation. No fever or chills. No syncope. Home Medications & Allergies Allergies: Coded Allergies: Penicillins (Unverified Allergy, Mild, 12/18/08) Home Medication List Reviewed: Yes LXF-Mkuqre-Csskks Hx Patient Social History Alcohol Use: Denies Use Recreational Drug Use: No Smoking Status: Never a Smoker Recent Foreign Travel: No Recent Infectious Disease Expo: No Recent Hopitalizations: No Past Medical History Discussed below Family Medical History Significant Family History: No Pertinent Family Hx Family Medical Hx Noncontributory Review of Systems-General Review of Systems Constitutional: see HPI; No chills, No fever; malaise, weakness EENTM: nose congestion, throat pain Respiratory: see HPI, cough, short of breath Cardiovascular: see HPI; No chest pain; edema; No palpitations Gastrointestinal: see HPI Genitourinary: no symptoms reported, see HPI Musculoskeletal: see HPI, muscle pain Skin: no symptoms reported, see HPI Psychiatric/Neurological: No Symptoms Reported, See HPI All Other Systems Reviewed Negative Unless Noted: Yes Reviewed Test Results Reviewed Test Results Lab Laboratory Tests Test 09/18/19 09:08 09/18/19 09:24 09/18/19 11:50 Range/Units White Blood Count 7.0 4.3-11.0 10^3/uL Red Blood Count 4.36 4.35-5.85 10^6/uL Hemoglobin 12.6 11.5-16.0 G/DL Hematocrit 40 35-52 % Mean Corpuscular Volume 91 80-99 FL Mean Corpuscular Hemoglobin 29 25-34 PG Mean Corpuscular Hemoglobin Concent 32 32-36 G/DL Red Cell Distribution Width 14.0 10.0-14.5 % Platelet Count 274 130-400 10^3/uL Mean Platelet Volume 9.6 7.4-10.4 FL Neutrophils (%) (Auto) 76 H 42-75 % Lymphocytes (%) (Auto) 17 12-44 % Monocytes (%) (Auto) 6 0-12 % Eosinophils (%) (Auto) 0 0-10 % Basophils (%) (Auto) 0 0-10 % Neutrophils # (Auto) 5.4 1.8-7.8 X 10^3 Lymphocytes # (Auto) 1.2 1.0-4.0 X 10^3 Monocytes # (Auto) 0.4 0.0-1.0 X 10^3 Eosinophils # (Auto) 0.0 0.0-0.3 10^3/uL Basophils # (Auto) 0.0 0.0-0.1 10^3/uL Erythrocyte Sedimentation Rate 23 0-30 MM/HR Prothrombin Time 14.7 12.2-14.7 SEC INR Comment 1.1 0.8-1.4 Activated Partial Thromboplast Time 34 24-35 SEC D-Dimer 0.99 H 0.00-0.49 UG/ML Sodium Level 143 135-145 MMOL/L Potassium Level 4.2 3.6-5.0 MMOL/L Chloride Level 107 98-107 MMOL/L Carbon Dioxide Level 26 21-32 MMOL/L Anion Gap 10 5-14 MMOL/L Blood Urea Nitrogen 30 H 7-18 MG/DL Creatinine 1.07 0.60-1.30 MG/DL Estimat Glomerular Filtration Rate 49 BUN/Creatinine Ratio 28 Glucose Level 174 H 70-105 MG/DL Lactic Acid Level 0.81 0.50-2.00 MMOL/L Calcium Level 8.7 8.5-10.1 MG/DL Corrected Calcium 8.9 8.5-10.1 MG/DL Total Bilirubin 0.4 0.1-1.0 MG/DL Aspartate Amino Transf (AST/SGOT) 16 5-34 U/L Alanine Aminotransferase (ALT/SGPT) 16 0-55 U/L Alkaline Phosphatase 54 40-136 U/L Lactate Dehydrogenase 176 125-220 U/L Troponin I 0.038 H <0.028 NG/ML C-Reactive Protein High Sensitivity 0.97 H 0.00-0.50 MG/DL B-Type Natriuretic Peptide 691.2 H <100.0 PG/ML Total Protein 6.9 6.4-8.2 GM/DL Albumin 3.8 3.2-4.5 GM/DL Procalcitonin 0.04 <0.10 NG/ML Urine Color YELLOW Urine Clarity CLEAR Urine pH 5.0 5-9 Urine Specific [place] 1.025 H 1.016-1.022 Urine Protein 1+ H NEGATIVE Urine Glucose (UA) NEGATIVE NEGATIVE Urine Ketones NEGATIVE NEGATIVE Urine Nitrite NEGATIVE NEGATIVE Urine Bilirubin NEGATIVE NEGATIVE Urine Urobilinogen 0.2 < = 1.0 MG/DL Urine Leukocyte Esterase NEGATIVE NEGATIVE Urine RBC (Auto) NEGATIVE NEGATIVE Urine RBC 2-5 H /HPF Urine WBC RARE /HPF Urine Squamous Epithelial Cells 2-5 /HPF Urine Crystals NONE /LPF Urine Bacteria FEW H /HPF Urine Casts NONE /LPF Urine Mucus NEGATIVE /LPF Urine Culture Indicated CULTURE PENDING Blood Gas Puncture Site LEFT RADIAL Blood Gas Patient Temperature 36 Arterial Blood pH 7.37 7.37-7.43 Arterial Blood Partial Pressure CO2 50 H 35-45 MMHG Arterial Blood Partial Pressure O2 88 79-93 MMHG Arterial Blood HCO3 28 H 23-27 MMOL/L Arterial Blood Total CO2 30.0 21.0-31.0 MMOL/L Arterial Blood Oxygen Saturation 98 94-100 % Arterial Blood Base Excess 3.2 H -2.5-2.5 MMOL/L Bacilio Test POSITIVE Blood Gas Ventilator Setting NO Blood Gas Inspired Oxygen 50% BIPAP Physical Exam Physical Exam Vital Signs Vital Signs - First Documented 09/18/19 09/18/19 08:32 11:35 Temp 36.6 Pulse 88 Resp 14 B/P (MAP) 186/78 (114) Pulse Ox 94 O2 Delivery Nasal Cannula O2 Flow Rate 4.00 FiO2 50 Capillary Refill : Less Than 3 Seconds Height, Weight, BMI Height: '" Weight: lbs. oz. kg; 32.22 BMI Method: General Appearance: WD/WN, Mild Distress Eyes: Bilateral Eye Normal Inspection, Bilateral Eye PERRL, Bilateral Eye EOMI HEENT: PERRL/EOMI, Pharynx Normal Neck: Non Tender, Supple Respiratory: Normal Breath Sounds, No Accessory Muscle Use, Crackles (Bilateral to mid lungs do) Cardiovascular: No Murmur, Tachycardia, Other (mild edema) Gastrointestinal: Non Tender, Soft Back: Normal Inspection, No CVA Tenderness, No Vertebral Tenderness Extremity: Normal Range of Motion, Non Tender, Pedal Edema (3+ to level of knee bilateral) Neurologic/Psychiatric: Alert, Oriented x3 Skin: Normal Color, Warm/Dry Lymphatic: No Adenopathy A/P-Cardiology Admission Diagnosis Acute respiratory failure Congestive heart failure Coronary artery disease Hypertension Assessment/Plan Status post acute respiratory failure was on Vapotherm, currently better, breathing better responded well to diuretics. Congestive heart failure, acute probably left ventricular systolic dysfunction ischemic in nature, planning to evaluate echocardiogram, started on diuretics. Restart home medication monitor Coronary artery disease history of CABG in 2010 using COLES to LAD, vein graft to the right coronary artery and vein graft to the circumflex artery, nor recent cardiac workup. Had mild elevation of troponin, probably secondary to respiratory failure type II NE. Close monitoring is recommended I will repeat troponin in the morning and monitor trend and monitor her EKG History of chest pain in the past, no recent episodes of chest pain Hypertension, resume home medication monitor blood pressure Hyperlipidemia, evaluate lipid profile and resume home medication Diabetes mellitus, followed and managed by primary care physician Clinical Quality Measures DVT/VTE Risk/Contraindication: Risk Factor Score Per Nursin RFS Level Per Nursing on Admit: 4+=Very High ANTHONY NOVOA MD Sep 18, 2019 17:11
[2019-09-18] MEDS ORDERED: ENOXAPARIN 100 MG/1 ML (LOVENOX) SYR SC SCH (17:15)
[2019-09-19] VITALS: BP 113/56
[2019-09-19] MEDS: RT-ALBUTEROL INHALER HFA (VENTOLIN HFA) 18 GM IH SCH ×6 (01:35→22:08)
[2019-09-19 03:30] LABS: HEMOGLOBIN 12.5 G/DL (11.5-16.0); MEAN PLATELET VOLUME 10.3 FL (7.4-10.4); RED CELL DISTRIBUTION WIDTH 14.4 % (10.0-14.5); WHITE BLOOD COUNT 4.2 10^3/uL (4.3-11.0)
[2019-09-19 03:54] LABS: POTASSIUM 4.9 MMOL/L (3.6-5.0)
[2019-09-19 03:55] LABS: ALBUMIN 3.5 GM/DL (3.2-4.5)
[2019-09-19 03:56] LABS: CALCIUM 8.6 MG/DL (8.5-10.1)
[2019-09-19 03:57] LABS: TOTAL PROTEIN 5.8 GM/DL (6.4-8.2)
[2019-09-19 03:59] LABS: BILIRUBIN,TOTAL 0.3 MG/DL (0.1-1.0)
[2019-09-19 04:00] VITALS: BP 125/56
[2019-09-19 04:00] LABS: PHOSPHORUS 3.9 MG/DL (2.3-4.7)
[2019-09-19 04:01] LABS: CREATININE SERUM 0.93 MG/DL (0.60-1.30)
[2019-09-19] MEDS: ONDANSETRON 4 MG/2 ML (SDV) Z0FRAN IVP PRN ×2 (04:41→09:05)
[2019-09-19] MEDS: ENOXAPARIN 80 MG/0.8 ML (LOVENOX) SYR SC SCH ×2 (05:29→16:24)
[2019-09-19] MEDS: FUROSEMIDE 40 MG/4 ML INJ (LASIX) IVP SCH ×2 (05:44→16:24)
[2019-09-19] MEDS: glyBURIDE 2.5 MG (MICRONASE) TAB PO SCH (05:44)
--- NOTE | 2019-09-19 06:34 | Pulmonary Progress Note ---
Subjective Time Seen by a Provider: 06:30 Subjective/Events-last exam Pt appears to be doing better. Sepsis Event Evaluation Height, Weight, BMI Height: '" Weight: lbs. oz. kg; 32.22 BMI Method: Focused Exam Lactate Level 09/18/19 09:08: Lactic Acid Level 0.81 Exam Exam Vital Signs Date Time Temp Pulse Resp B/P (MAP) Pulse Ox O2 Delivery O2 Flow Rate FiO2 09/19/19 04:00 64 24 125/56 (79) 94 Vapotherm 15.00 45.00 09/19/19 03:23 Vapotherm 15.00 45 09/19/19 03:22 36.8 09/19/19 01:55 Vapotherm 15.00 45.00 09/19/19 01:36 95 Vapotherm 10.00 40 09/19/19 01:00 64 09/19/19 00:00 37.1 09/19/19 00:00 68 24 113/56 (75) 92 Vapotherm 10.00 40.00 09/18/19 23:10 Vapotherm 10.00 40 09/18/19 22:10 92 Vapotherm 10.00 40 09/18/19 20:10 Vapotherm 40 09/18/19 20:00 37.2 09/18/19 20:00 68 26 114/54 (74) 92 Vapotherm 10.00 40.00 09/18/19 19:45 Vapotherm 10.00 40 09/18/19 19:08 92 Vapotherm 10.00 40 09/18/19 19:00 73 09/18/19 17:00 73 24 110/48 (68) 93 Vapotherm 10.00 40.00 09/18/19 16:43 Vapotherm 10.00 40 09/18/19 16:06 36.8 09/18/19 16:00 68 22 116/46 (69) 93 Vapotherm 10.00 40.00 09/18/19 15:00 75 18 130/64 (86) 93 Vapotherm 10.00 40.00 09/18/19 14:00 71 16 105/73 (84) 91 Vapotherm 10.00 40.00 09/18/19 13:53 Vapotherm 10.00 40.00 09/18/19 13:42 94 Vapotherm 10.00 40 09/18/19 13:27 NIV Bilevel 40.00 09/18/19 13:00 58 17 99/50 (66) 99 NIV Bilevel 50.00 09/18/19 12:53 71 09/18/19 12:13 36.0 09/18/19 12:09 36.6 88 94 36 09/18/19 12:00 67 19 122/79 (93) 94 NIV Bilevel 50.00 09/18/19 11:45 70 25 131/66 (87) 99 NIV Bilevel 50.00 09/18/19 11:35 36.0 09/18/19 11:35 NIV Bilevel 50 09/18/19 11:18 36.6 71 16 141/105 (117) 98 NIV Bilevel 09/18/19 11:11 89 28 99 80.00 09/18/19 11:08 71 16 141/105 (117) 98 NIV Bilevel 50.00 09/18/19 10:34 83 16 129/59 (82) 100 NIV Bilevel 09/18/19 08:32 36.6 88 14 186/78 (114) 94 Nasal Cannula 4.00 I & O 09/19/19 07:00 Intake Total 1300 ml Output Total 4575 ml Balance -3275 ml Height & Weight Height: '" Weight: lbs. oz. kg; 32.22 BMI Method: General Appearance: No Apparent Distress, Anxious, Chronically ill, Obese HEENT: PERRL/EOMI, Normal ENT Inspection, Pharynx Normal, Moist Mucous Membranes Neck: Full Range of Motion, Normal Inspection, Non Tender Respiratory: Chest Non Tender, Lungs Clear, No Accessory Muscle Use, No Respiratory Distress, Crackles, Decreased Breath Sounds, Wheezing Cardiovascular: Regular Rate, Rhythm, No Edema, No Gallop, No JVD, No Murmur, Normal Peripheral Pulses Capillary Refill: Less Than 3 Seconds Extremity: Normal Capillary Refill, Normal Inspection, Normal Range of Motion, Non Tender, No Calf Tenderness, No Pedal Edema Neurologic/Psychiatric: Alert, Oriented x3, No Motor/Sensory Deficits, Normal Mood/Affect, 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
[2019-09-19 08:00] VITALS: BP 135/56
--- NOTE | 2019-09-19 08:34 | Diagnostic Imaging Report ---
Indication: Dyspnea. Comparison: 09/18/2019. Discussion: Single portable upright view of the chest was obtained. Cardiomegaly is stable. Bilateral mixed interstitial and alveolar infiltrates are slightly decreased, likely decreasing edema. Small left effusion is stable. No effusion on the right. No pneumothorax or osseous abnormality. Impression: 1. Cardiomegaly is stable with suspected decreasing pulmonary edema. Dictated by: Dictated on workstation # [id number]
[2019-09-19] MEDS ORDERED: PANTOPRAZOLE 40 MG (PROTONIX) TAB PO SCH (09:00)
[2019-09-19] MEDS: ASPIRIN E.C. 81 MG (ECOTRIN) TAB PO SCH (09:05)
--- NOTE | 2019-09-19 11:04 | NUR ---
1100 PT TRANSFERRED TO ROOM 413 VIA W/C WITH 15 LITERS 02 PER NRB. ALL PERSONAL BELONGINGS SENT DOWN WITH PT. REPORT GIVEN TO FER MENDOZA.
--- NOTE | 2019-09-19 11:10 | Progress Note - Hospitalist ---
Subjective HPI/CC On Admission Date Seen by Provider: Sep 19, 2019 Time Seen by Provider: 10:30 Chief complaint: acute dyspnea History of present illness: This is an 84-year-old white female clinic patient of mine for nearly 17 years who has a past medical history of bypass surgery with noncompliance with follow-up with cardiology, diabetes mellitus on oral meds, hypertension and severe osteoarthritis who presents to the ER by ambulance after she called them because of worsening shortness of breath. She rarely gets out during this pandemic but she did go and eat at [facility] 2 weeks ago with her [id number]. She has been swab for COVID. Patient appears to have fluid overload with congestive heart failure requiring BiPAP in the ER now weaned down to nasal cannula and has responded well to diuresis. Patient has felt sick for 1 month felt like it would get better. Denies any fever or cough. Subjective/Events-last exam Patient now on 4th floor Vapotherm maintained CHF being managed with Lasix with good results COVID-19 negative taken out of isolation Congested from the type of air exchange from ICU Bed [address] on Claritin and give Afrin prn also Overall very weak Will allow patient to wean from O2 on Vapotherm and tomorrow will start therapy Checked meds and labs No pain reported except stomach so started on PPI and Carafate and consulted Dr Joya in case this is a gastric ulcer since she reports the pain was present 3 days before admit after 1 month of illness Needs laxative so started Senna which has helped her in the past since Miralax does not work for her Cardiology consultation for elevated troponin likely Type II NSTEMI Review of Systems General: Fatigue, Malaise Pulmonary: Dyspnea, Cough Gastrointestinal: Nausea, Abdominal Pain, Constipation Focused Exam Lactate Level 09/18/19 09:08: Lactic Acid Level 0.81 Objective Exam Vital Signs Vital Signs Date Time Temp Pulse Resp B/P (MAP) Pulse Ox O2 Delivery O2 Flow Rate FiO2 09/19/19 16:00 36.8 80 18 122/57 (78) 97 Vapotherm 10.00 45.00 09/19/19 14:18 45 Capillary Refill : Less Than 3 Seconds General Appearance: Anxious, Chronically ill, Mild Distress, Obese Respiratory: Chest Non Tender, Lungs Clear, Normal Breath Sounds, No Respiratory Distress, Accessory Muscle Use, Decreased Breath Sounds Cardiovascular: Regular Rate, Rhythm, No Gallop, No JVD, No Murmur, Normal Peripheral Pulses Extremity: Normal Capillary Refill, Normal Inspection, Normal Range of Motion, Non Tender, No Calf Tenderness, No Pedal Edema, Pedal Edema Neurologic/Psychiatric: Alert, Oriented x3, No Motor/Sensory Deficits, Normal Mood/Affect Results/Procedures Lab Laboratory Tests 09/19/19 03:17 09/19/19 12:12 Patient resulted labs reviewed. Assessment/Plan Assessment and Plan Assess & Plan/Chief Complaint Assessment: Acute exacerbation of congestive heart failure CAD previous bypass Type II NSTEMI DM HTN Severe arthritis Epigastric abdominal pain consulting Dr Joya and placed on PPI and Carafate in meantime Constipation Nasal congestion Plan: Appreciate cardiology and pulmonology assistance Wean oxygen now on Vapotherm s/p biPAP Diuresis Home meds COVID swab negative PPI Carafate Dr Joya and Cardiology consultations DVT PPx Diagnosis/Problems Diagnosis/Problems (1) Respiratory distress (2) CAD (coronary artery disease) (3) Hx of CABG (4) Diabetes (5) Hypertension (6) Hyperlipidemia (7) Arthritis (8) Hypercapnia (9) BiPAP (biphasic positive airway pressure) dependence (10) Acute heart failure Status: Acute Qualifiers: Heart failure type: unspecified Qualified Codes: I50.9 - Heart failure, unspecified (11) Type 2 AMI (acute myocardial infarction) Clinical Quality Measures DVT/VTE Risk/Contraindication: Risk Factor Score Per Nursin RFS Level Per Nursing on Admit: 4+=Very High KEILA MARTINEZ DO Sep 19, 2019 11:10
[2019-09-19 11:42] VITALS: BP 139/68
[2019-09-19] MEDS ORDERED: SENNA W/DOCUSATE (SENOKOT S) TABLET PO ONE (11:45)
[2019-09-19] MEDS ORDERED: LORATADINE (CLARITIN) 10 MG TAB PO ONE (11:45)
[2019-09-19] MEDS ORDERED: SUCRALFATE 1 GM (CARAFATE) TAB PO ONE (11:45)
[2019-09-19] MEDS: OXYMETAZOLINE (AFRIN) 0.05% NA 30 ML BTL SCH ×2 (13:30→20:08)
--- NOTE | 2019-09-19 14:44 | Cardiology Progress Note ---
Cardiology SOAP Progress Note Subjective: Some improvement in shortness of breath. Objective: I&O/Vital Signs 09/19/19 09/19/19 09/19/19 09/19/19 03:22 03:23 04:00 07:00 Temp 36.8 Pulse 64 66 Resp 24 B/P (MAP) 125/56 (79) Pulse Ox 94 O2 Delivery Vapotherm Vapotherm O2 Flow Rate 15.00 15.00 45.00 FiO2 45 09/19/19 09/19/19 09/19/19 09/19/19 07:12 08:00 08:15 08:45 Temp 36.7 Pulse 65 Resp 25 B/P (MAP) 135/56 (82) Pulse Ox 94 94 94 O2 Delivery Vapotherm Vapotherm Vapotherm Vapotherm O2 Flow Rate 15.00 15.00 15.00 15.00 45.00 FiO2 45 45 09/19/19 09/19/19 09/19/19 09/19/19 10:53 11:42 12:49 14:18 Temp 36.7 Pulse 70 76 Resp 18 B/P (MAP) 139/68 (91) Pulse Ox 98 94 O2 Delivery Vapotherm Vapotherm Vapotherm O2 Flow Rate 15.00 15.00 10.00 45.00 FiO2 45 45 09/19/19 00:00 Intake Total 350 ml Output Total 3675 ml Balance -3325 ml Constitutional: apparent distress, PERRL, well-developed Respiratory: chest is bilaterally symmetric, other (decreased breath sounds bilaterally.) Cardiovascular: regular rate-rhythm, S1 and S2 Gastrointestional: soft, audible bowel sounds Extremities: normal range of motion, non-tender, normal inspection Neurologic/Psychiatric: no motor/sensory deficits, alert, normal mood/affect, oriented x 3 Skin: normal color, warm/dry Results/Procedures: Labs Laboratory Tests 09/19/19 03:17: White Blood Count 4.2L, Red Blood Count 4.27L, Hemoglobin 12.5, Hematocrit 40, Mean Corpuscular Volume 93, Mean Corpuscular Hemoglobin 29, Mean Corpuscular Hemoglobin Concent 32, Red Cell Distribution Width 14.4, Platelet Count 55L, Mean Platelet Volume 10.3, Sodium Level 138, Potassium Level 4.9, Chloride Level 101, Carbon Dioxide Level 21, Anion Gap 16H, Blood Urea Nitrogen 21H, Creatinine 0.93, Estimat Glomerular Filtration Rate 57, BUN/Creatinine Ratio 23, Glucose Level 112H, Calcium Level 8.6, Corrected Calcium 9.0, Phosphorus Level 3.9, Magnesium Level 2.0, Total Bilirubin 0.3, Aspartate Amino Transf (AST/SGOT) 21, Alanine Aminotransferase (ALT/SGPT) 20, Alkaline Phosphatase 67, Troponin I 0.589*H, Total Protein 5.8L, Albumin 3.5, Triglycerides Level 86, Cholesterol Level 94, LDL Cholesterol Direct 45, VLDL Cholesterol 17, HDL Cholesterol 36L, Thyroid Stimulating Hormone (TSH) 4.61 09/19/19 12:12: Platelet Count 305 Microbiology 09/18/19 Urine Culture - Final, Complete 3 or more isolates A/P: Assessment/Dx: Acute respiratory failure Congestive heart failure Coronary artery disease Hypertension Plan: Status post acute respiratory failure was on Vapotherm, currently better, breath ing better responded well to diuretics. Congestive heart failure, acute probably left ventricular systolic dysfunction ischemic in nature, request echocardiogram, started on diuretics. Restart home medication monitor Non-STEMI, Coronary artery disease history of CABG in 2010 using COLES to LAD, vein graft to the right coronary artery and vein graft to the circumflex artery, nor recent cardiac workup. Upward trend of troponin. Plaque rupture cannot be ruled out. Will likely require coronary angiography in the near future. History of chest pain in the past, no recent episodes of chest pain Hypertension, resume home medication monitor blood pressure Hyperlipidemia, evaluate lipid profile and resume home medication Diabetes mellitus, followed and managed by primary care physician Thank you for your consultation. Please call me if you have any questions. Jessica Locke MD, FACP, FACC, FSCAI, FHRS, CCDS Interventional Cardiology Cardiac Electrophysiology Vascular Medicine and Endovascular Interventions Focused Exam Lactate Level 09/18/19 09:08: Lactic Acid Level 0.81 Celine LOCKE MD Sep 19, 2019 14:44
[2019-09-19] MEDS ORDERED: CLOPIDOGREL 300 MG (PLAVIX) TABLET PO ONE (14:45)
[2019-09-19 16:00] VITALS: BP 122/57
[2019-09-19] MEDS: SUCRALFATE 1 GM (CARAFATE) TAB PO SCH ×2 (16:23→20:07)
--- NOTE | 2019-09-19 16:59 | Consultation - Surgery ---
History of Present Illness History of Present Illness Patient Consulted On(raphael/time) 09/19/19 16:41 Date Seen by Provider: Sep 19, 2019 Time Seen by Provider: 15:56 Reason for Visit: shortness of breath History of Present Illness Consult requested by Dr. Yung for gastritis. Patient is an 84 year old female who was admitted for shortness of breath, acute exacerbation of CHF. Has history of CAD with previous biopsy. She states her breathing has been better today. She states she began having really bad epigastric pain that was burning. No radiation. Constant. She felt nauseated but no emesis. She was unable to eat breakfast. She did eat lunch and then it resolved. Patient states she has been on Omeprazole previously and stopped and began having symptoms again. She started taking it again and got a little better before coming into the hospital. Currently on Vopotherm. Denies n/v fever sweats chills shortness of breath or chest pain. Allergies and Home Medications Allergies Coded Allergies: Penicillins (Unverified Allergy, Mild, 12/18/08) Home Medications Amlodipine Besylate 5 Mg Tablet, 5 MG PO DAILY, (Reported) Aspirin 81 Mg Tablet.dr, 81 MG PO DAILY, (Reported) Atorvastatin Calcium 10 Mg Tablet, 10 MG PO DAILY, (Reported) Cholecalciferol (Vitamin D3) 25 Mcg Capsule, 25 MCG PO TWICE WEEKLY, (Reported) Etodolac 200 Mg Capsule, 200 MG PO BID, (Reported) Fenofibrate 54 Mg Tablet, 54 MG PO DAILY, (Reported) Flaxseed Oil 1,000 Mg Capsule, 1,000 MG PO DAILY, (Reported) Glyburide 2.5 Mg Tablet, 2.5 MG PO DAILY, (Reported) Hydralazine HCl 25 Mg Tablet, 25 MG PO BID, (Reported) Lisinopril/Hydrochlorothiazide 1 Each Tablet, 1 EA PO DAILY, (Reported) Metoprolol Succinate 100 Mg Tab.er.24h, 100 MG PO DAILY, (Reported) Patient Home Medication List Home Medication List Reviewed: Yes Past Mbcafxp-Yghwcl-Gdxugp Hx Patient Social History Alcohol Use: Denies Use Recreational Drug Use: No Smoking Status: Never a Smoker Recent Foreign Travel: No Contact w/Someone Who Travel: No Recent Infectious Disease Expo: No Recent Hopitalizations: No Seasonal Allergies Seasonal Allergies: No Surgeries History of Surgeries: Yes Surgeries: CABG, Hysterectomy Respiratory History of Respiratory Disorde: No Respiratory Disorders: Asthma Cardiovascular History of Cardiac Disorders: Yes Cardiac Disorders: Coronary Artery Disease, Hypertension Neurological History of Neurological Disord: No Reproductive System Hx Reproductive Disorders: No Genitourinary History of Genitourinary Disor: No Gastrointestinal History of Gastrointestinal Di: No Musculoskeletal History of Musculoskeletal Dis: No Musculoskeletal Disorders: Arthritis, Chronic Back Pain Endocrine History of Endocrine Disorders: No Endocrine Disorders: Diabetes, Non-Insulin dep HEENT History of HEENT Disorders: No Cancer History of Cancer: Yes Cancer: Ovarian Psychosocial History of Psychiatric Problem: No Integumentary History of Skin or Integumenta: No Blood Transfusions History of Blood Disorders: No Reviewed Nursing Assessment Reviewed/Agree w Nursing PMH: Yes Family Medical History Significant Family History: No Pertinent Family Hx Review of Systems-General Constitutional: No dizziness, No fever; weakness EENTM: No hearing loss, No ear pain Respiratory: No cough; dyspnea on exertion, short of breath Cardiovascular: No chest pain, No edema Gastrointestinal: abdominal pain (epigastric), heartburn, nausea; No vomiting Genitourinary: No decreased output, No dysuria Musculoskeletal: No back pain, No joint pain Skin: No change in color, No change in hair/nails Psychiatric/Neurological: Denies Anxiety, Denies Depressed, Denies Emotional Problems All Other Systems Reviewed Negative Unless Noted: Yes (Negative excepted noted.) Physical Exam-General Problems Physical Exam Vital Signs Vital Signs - First Documented 09/18/19 09/18/19 08:32 11:35 Temp 36.6 Pulse 88 Resp 14 B/P (MAP) 186/78 (114) Pulse Ox 94 O2 Delivery Nasal Cannula O2 Flow Rate 4.00 FiO2 50 Capillary Refill : Less Than 3 Seconds General Appearance: WD/WN, no apparent distress (sitting in chair) HEENT: PERRL/EOMI, normal ENT inspection Neck: non-tender Respiratory: chest non-tender, no respiratory distress, no accessory muscle use Cardiovascular: regular rate, rhythm, no edema Gastrointestinal: non tender, soft, no organomegaly Rectal: deferred Back: no CVA tenderness, no vertebral tenderness Extremities: non-tender, normal inspection 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, alert, normal mood/affect, oriented x 3 Skin: normal color, warm/dry Lymphatic: no adenopathy Data Review Labs Laboratory Tests 09/19/19 03:17: White Blood Count 4.2L, Red Blood Count 4.27L, Hemoglobin 12.5, Hematocrit 40, Mean Corpuscular Volume 93, Mean Corpuscular Hemoglobin 29, Mean Corpuscular Hemoglobin Concent 32, Red Cell Distribution Width 14.4, Platelet Count 55L, Mean Platelet Volume 10.3, Sodium Level 138, Potassium Level 4.9, Chloride Level 101, Carbon Dioxide Level 21, Anion Gap 16H, Blood Urea Nitrogen 21H, Creatinine 0.93, Estimat Glomerular Filtration Rate 57, BUN/Creatinine Ratio 23, Glucose L evel 112H, Calcium Level 8.6, Corrected Calcium 9.0, Phosphorus Level 3.9, Magnesium Level 2.0, Total Bilirubin 0.3, Aspartate Amino Transf (AST/SGOT) 21, Alanine Aminotransferase (ALT/SGPT) 20, Alkaline Phosphatase 67, Troponin I 0.58 9*H, Total Protein 5.8L, Albumin 3.5, Triglycerides Level 86, Cholesterol Level 94, LDL Cholesterol Direct 45, VLDL Cholesterol 17, HDL Cholesterol 36L, Thyroid Stimulating Hormone (TSH) 4.61 09/19/19 12:12: Platelet Count 305 Microbiology 09/18/19 Urine Culture - Final, Complete 3 or more isolates Assessment/Plan Assessment/Plan Assessment/Plan gastritis epigastric abdominal pain Patient pain improved at this time. Protonix/carafate she does not wish to do EGD to evaluate We will keep with conservative measures will follow Clinical Quality Measures DVT/VTE Risk/Contraindication: Risk Factor Score Per Nursin RFS Level Per Nursing on Admit: 4+=Very High AYALA PEARSON DO Sep 19, 2019 16:59
[2019-09-19] MEDS: PANTOPRAZOLE 40 MG (PROTONIX) TAB PO SCH (20:07)
[2019-09-19] MEDS: LORATADINE (CLARITIN) 10 MG TAB PO SCH (20:07)
[2019-09-19] MEDS: SENNA W/DOCUSATE (SENOKOT S) TABLET PO SCH (20:07)
[2019-09-19 20:19] VITALS: BP 117/67
[2019-09-20] VITALS (29 sets, daily range): BP systolic 87–136; BP diastolic 46–83
[2019-09-20] MEDS: RT-ALBUTEROL INHALER HFA (VENTOLIN HFA) 18 GM IH SCH ×6 (02:20→22:50)
--- NOTE | 2019-09-20 04:07 | NUR ---
[employer] CALLED THIS RN. PT HR IS IN THE 150'S AND HAS BEEN FOR 10MIN. THIS RN ENTER ROOM. PT IS SITTING IN CHAIR. HAS NO C/O CHEST PAIN BUT DOES STATE SHE JUST DOESN'T FEEL RIGHT. EKG AND VITAL AT THIS TIME. HOUSE SUPERIOR AT BEDSIDE. DR. ALONZO CALLED AND INFORMED OF PT CHANGE IN STATUS. ORDER TO GIVE 10MG OF IV CARDIZEM.
--- NOTE | 2019-09-20 04:17 | NUR ---
VITAL MACHINE HOOKED UP TO PT. MANDEEP RODRÍGUEZ INFORMED TELETECH OF CARDIZEM BEING GIVEN. MANDEEP VASQUEZ ADMINISTERED 10MG OF IV CARDIZEM AT THIS TIME. NO CHANGE IN HR. HR CONTINUES IN 150'S. VITALS TAKEN EVERY 5 MIN. 0430 CONTINUED NO CHANGE IN HR. DR. ALONZO CALLED AND INFORM OF NO CHANGE. ORDER TO MOVE PT TO ICU AND START CARDIZEM DRIP.
[2019-09-20] MEDS ORDERED: dilTIAZem DRIP PRE-MIX 125 ML IV ONE (04:41)
--- NOTE | 2019-09-20 05:00 | NUR ---
PT TRANSFER TO ICU 9 AT THIS TIME. PT TRANSPORTED WITH ALL PERSONAL BELONGINGS. REPORT GIVEN TO ICU NURSE.
--- NOTE | 2019-09-20 05:22 | NUR ---
DR. MARTINEZ INFORMED OF PT TRANSFER.
[2019-09-20] MEDS: ENOXAPARIN 80 MG/0.8 ML (LOVENOX) SYR SC SCH ×2 (05:27→16:49)
[2019-09-20] MEDS: SUCRALFATE 1 GM (CARAFATE) TAB PO SCH ×4 (05:27→20:00)
[2019-09-20] MEDS: FUROSEMIDE 40 MG/4 ML INJ (LASIX) IVP SCH ×2 (05:27→16:43)
[2019-09-20] MEDS: glyBURIDE 2.5 MG (MICRONASE) TAB PO SCH (05:27)
[2019-09-20] MEDS ORDERED: dilTIAZem DRIP PRE-MIX 125 ML IV SCH (05:30)
--- NOTE | 2019-09-20 06:52 | NUR ---
THIS RN NOTIFIED DR. ALONZO OF PATIENT'S SUSTAINING HR IN UPPER 140'S DESPITE CARDIZEM GTT AT 15MG/HR, 40MG LASIX IV, AND 0.5MG ATIVAN IV. STAT EKG TAKEN FOR POSSIBLE RHYTHM CHANGE AT THIS TIME, EKG SENT TO DR. ALONZO. NO NEW ORDERS RECEIVED.
[2019-09-20 07:49] LABS: BASOPHILS % (AUTO) 0 % (0-10); EOSINOPHILS # (AUTO) 0.1 10^3/uL (0.0-0.3); EOSINOPHILS % (AUTO) 1 % (0-10); HEMATOCRIT 32 % (35-52); HEMOGLOBIN 10.2 G/DL (11.5-16.0); LYMPHOCYTES # (AUTO) 2.1 X 10^3 (1.0-4.0); LYMPHOCYTES % (AUTO) 25 % (12-44); MEAN CORPUSCULAR HEMOGLOBIN 29 PG (25-34); MEAN CORPUSCULAR HGB CONC 32 G/DL (32-36); MEAN CORPUSCULAR VOLUME 91 FL (80-99); MEAN PLATELET VOLUME 9.4 FL (7.4-10.4); MONOCYTES # (AUTO) 0.8 X 10^3 (0.0-1.0); MONOCYTES % (AUTO) 9 % (0-12); NEUTROPHILS # (AUTO) 5.4 X 10^3 (1.8-7.8); NEUTROPHILS % (AUTO) 64 % (42-75); PLATELET COUNT 275 10^3/uL (130-400); RED CELL DISTRIBUTION WIDTH 13.5 % (10.0-14.5); WHITE BLOOD COUNT 8.4 10^3/uL (4.3-11.0)
[2019-09-20 07:59] LABS: ALBUMIN 3.3 GM/DL (3.2-4.5); POTASSIUM 3.8 MMOL/L (3.6-5.0)
[2019-09-20 08:00] LABS: CALCIUM 8.5 MG/DL (8.5-10.1)
[2019-09-20 08:01] LABS: TOTAL PROTEIN 5.9 GM/DL (6.4-8.2)
[2019-09-20 08:03] LABS: BILIRUBIN,TOTAL 0.4 MG/DL (0.1-1.0)
[2019-09-20 08:05] LABS: CREATININE SERUM 1.29 MG/DL (0.60-1.30)
[2019-09-20] MEDS: ASPIRIN E.C. 81 MG (ECOTRIN) TAB PO SCH (08:27)
[2019-09-20] MEDS: LORATADINE (CLARITIN) 10 MG TAB PO SCH ×2 (08:27→20:00)
[2019-09-20] MEDS: PANTOPRAZOLE 40 MG (PROTONIX) TAB PO SCH ×2 (08:27→20:00)
[2019-09-20] MEDS: SENNA W/DOCUSATE (SENOKOT S) TABLET PO SCH ×2 (08:27→20:01)
[2019-09-20] MEDS: OXYMETAZOLINE (AFRIN) 0.05% NA 30 ML BTL SCH (09:05)
--- NOTE | 2019-09-20 09:42 | NUR ---
PT REQUESTING "SOMETHING FOR NERVES," NOT TIME FOR ATIVAN AND PT ON VAPOTHERM, DR MARTINEZ NOTIFIED AND NEW ORDERS RECEIVED, SEE ORDER HX.
[2019-09-20] MEDS ORDERED: FLEET ENEMA ADULT 1 EA BTL PR ONE (10:15)
[2019-09-20] MEDS ORDERED: MAGNESIUM CITRATE 300 ML BTL PO ONE (10:15)
--- NOTE | 2019-09-20 10:59 | Progress Note - Hospitalist ---
Subjective HPI/CC On Admission Date Seen by Provider: Sep 20, 2019 Time Seen by Provider: 10:00 Chief complaint: acute dyspnea History of present illness: This is an 84-year-old white female clinic patient of mine for nearly 17 years who has a past medical history of bypass surgery with noncompliance with follow-up with cardiology, diabetes mellitus on oral meds, hypertension and severe osteoarthritis who presents to the ER by ambulance after she called them because of worsening shortness of breath. She rarely gets out during this pandemic but she did go and eat at [facility] 2 weeks ago with her [id number]. She has been swab for COVID. Patient appears to have fluid overload with congestive heart failure requiring BiPAP in the ER now weaned down to nasal cannula and has responded well to diuresis. Patient has felt sick for 1 month felt like it would get better. Denies any fever or cough. Subjective/Events-last exam Patient required transfer to ICU this morning due to new onset AF w/RVR Patient on Vapotherm No pain reported Had large BM before SSE Checked meds and labs No biPAP required Updated patient on the plan PT OT and IRF likely Now NSR on drips Review of Systems General: Fatigue, Malaise Pulmonary: Dyspnea, Cough Cardiovascular: Edema Neurological: Weakness Focused Exam Lactate Level 09/18/19 09:08: Lactic Acid Level 0.81 Objective Exam Vital Signs Vital Signs Date Time Temp Pulse Resp B/P (MAP) Pulse Ox O2 Delivery O2 Flow Rate FiO2 09/20/19 18:00 104 30 127/65 (85) 96 Vapotherm 20.00 40.00 09/20/19 16:00 36.9 09/20/19 16:00 40 Capillary Refill : Less Than 3 Seconds General Appearance: No Apparent Distress, WD/WN, Chronically ill Respiratory: Chest Non Tender, Lungs Clear, Normal Breath Sounds, No Accessory Muscle Use, No Respiratory Distress, Decreased Breath Sounds Cardiovascular: Regular Rate, Rhythm, No Edema, No Gallop, No JVD, No Murmur, Normal Peripheral Pulses Neurologic/Psychiatric: Alert, Oriented x3, No Motor/Sensory Deficits, Normal Mood/Affect Results/Procedures Lab Laboratory Tests 09/20/19 07:40 Patient resulted labs reviewed. Assessment/Plan Assessment and Plan Assess & Plan/Chief Complaint Assessment: New onset AF w/RVR requiring transfer to ICU today 7/12/20 Acute exacerbation of congestive heart failure CAD previous bypass Type II NSTEMI DM HTN Severe arthritis Epigastric abdominal pain consulting Dr Joya and placed on PPI and Carafate in meantime Constipation-now resolved Nasal congestion Plan: Appreciate cardiology and pulmonology assistance Wean oxygen now on Vapotherm s/p biPAP Diuresis Home meds COVID swab negative PPI Carafate Dr Joya and Cardiology consultations DVT PPx Diagnosis/Problems Diagnosis/Problems (1) Respiratory distress (2) CAD (coronary artery disease) (3) Hx of CABG (4) Diabetes (5) Hypertension (6) Hyperlipidemia (7) Arthritis (8) Hypercapnia (9) BiPAP (biphasic positive airway pressure) dependence (10) Acute heart failure Status: Acute Qualifiers: Heart failure type: unspecified Qualified Codes: I50.9 - Heart failure, unspecified (11) Type 2 AMI (acute myocardial infarction) (12) Atrial fibrillation with rapid ventricular response Clinical Quality Measures DVT/VTE Risk/Contraindication: Risk Factor Score Per Nursin RFS Level Per Nursing on Admit: 4+=Very High KEILA MARTINEZ DO Sep 20, 2019 10:59
[2019-09-20] MEDS ORDERED: FLEET ENEMA ADULT 1 EA BTL PR PRN (11:30)
[2019-09-20] MEDS ORDERED: MAGNESIUM CITRATE 300 ML BTL PO PRN (11:30)
--- NOTE | 2019-09-20 15:28 | Cardiology Progress Note ---
Cardiology SOAP Progress Note Subjective: Improved shortness of breath. Objective: I&O/Vital Signs 09/21/19 09/21/19 09/21/19 09/21/19 03:40 03:58 04:00 04:00 Pulse 80 Resp 16 B/P (MAP) 106/52 (70) Pulse Ox 98 O2 Delivery Vapotherm Vapotherm Vapotherm Vapotherm O2 Flow Rate 30.00 40.00 30.00 40.00 30.00 30.00 30.00 FiO2 30 09/21/19 09/21/19 09/21/19 09/21/19 04:24 05:00 06:45 07:00 Pulse 82 94 97 Resp 19 27 B/P (MAP) 109/81 (90) 112/55 (74) Pulse Ox 95 95 96 O2 Delivery Vapotherm Vapotherm Vapotherm O2 Flow Rate 40.00 40.00 40.00 30.00 30.00 FiO2 30 09/21/19 09/21/19 09/21/19 09/21/19 07:16 07:28 08:00 08:00 Temp 36.5 Pulse 96 Resp 18 B/P (MAP) 102/47 (65) Pulse Ox 97 89 O2 Delivery Vapotherm Vapotherm Vapotherm O2 Flow Rate 20.00 20.00 20.00 30.00 30.00 FiO2 30 09/21/19 09/21/19 09/21/19 09/21/19 08:00 09:00 10:00 10:42 Pulse 87 90 Resp 20 28 B/P (MAP) 107/51 (69) Pulse Ox 93 94 100 O2 Delivery Vapotherm Vapotherm Vapotherm High Flow N/C O2 Flow Rate 20.00 20.00 20.00 5.00 30.00 30.00 FiO2 30 09/21/19 09/21/19 09/21/19 09/21/19 11:00 12:00 12:00 12:00 Temp 36.6 Pulse 87 90 B/P (MAP) 102/68 (79) 105/86 (92) Pulse Ox 100 98 O2 Delivery Vapotherm High Flow N/C Vapotherm O2 Flow Rate 20.00 2.00 20.00 30.00 30.00 09/21/19 09/21/19 12:06 14:54 Pulse Ox 93 O2 Delivery High Flow N/C High Flow N/C O2 Flow Rate 2.00 2.00 09/21/19 00:00 Intake Total 720 ml Output Total 600 ml Balance 120 ml Constitutional: apparent distress, PERRL, well-developed Respiratory: chest is bilaterally symmetric, other (decreased breath sounds bilaterally.) Cardiovascular: regular rate-rhythm, S1 and S2 Gastrointestional: soft, audible bowel sounds Extremities: normal range of motion, non-tender, normal inspection Neurologic/Psychiatric: no motor/sensory deficits, alert, normal mood/affect, oriented x 3 Skin: normal color, warm/dry Results/Procedures: Labs Laboratory Tests 09/21/19 03:07: White Blood Count 6.9, Red Blood Count 3.17L, Hemoglobin 9.0L, Hematocrit 29L, Mean Corpuscular Volume 91, Mean Corpuscular Hemoglobin 28, Mean Corpuscular Hemoglobin Concent 31L, Red Cell Distribution Width 14.0, Platelet Count 259, Mean Platelet Volume 9.7, Neutrophils (%) (Auto) 55, Lymphocytes (%) (Auto) 32, Monocytes (%) (Auto) 10, Eosinophils (%) (Auto) 2, Basophils (%) (Auto) 0, Neutrophils # (Auto) 3.8, Lymphocytes # (Auto) 2.2, Monocytes # (Auto) 0.7, Eosinophils # (Auto) 0.2, Basophils # (Auto) 0.0, Sodium Level 144, Potassium Level 3.3L, Chloride Level 98, Carbon Dioxide Level 32, Anion Gap 14, Blood Urea Nitrogen 85H, Creatinine 1.73H, Estimat Glomerular Filtration Rate 28, BUN/Creatinine Ratio 49, Glucose Level 94, Calcium Level 8.3L, Phosphorus Level 4.0, Magnesium Level 1.9, B-Type Natriuretic Peptide 57.7, Procalcitonin 0.32H Microbiology 09/20/19 MRSA Screen - Final, Complete MRSA not isolated 09/18/19 Urine Culture - Final, Complete 3 or more isolates 09/18/19 Blood Culture - Preliminary, Resulted No growth A/P: Assessment/Dx: Acute respiratory failure Congestive heart failure Coronary artery disease Hypertension Plan: Status post acute respiratory failure was on Vapotherm, currently better, breathing better responded well to diuretics. Congestive heart failure, acute probably left ventricular systolic dysfunction ischemic in nature, request echocardiogram, started on diuretics. Restart home medication monitor Non-STEMI, Coronary artery disease history of CABG in 2010 using COLES to LAD, vein graft to the right coronary artery and vein graft to the circumflex artery, nor recent cardiac workup. Upward trend of troponin. Plaque rupture cannot be ruled out. I discussed at length with the patient but she refused coronary angiography. She understands that she could have recurrent [place] or in the future. However she does not want coronary angiography. Episode of atrial fibrillation, patient refused oral anticoagulation. She understands the risk of stroke. Continue aspirin and Plavix. History of chest pain in the past, no recent episodes of chest pain Hypertension, resume home medication monitor blood pressure Hyperlipidemia, evaluate lipid profile and resume home medication Diabetes mellitus, followed and managed by primary care physician Thank you for your consultation. Please call me if you have any questions. Jessica Locke MD, FACP, FACC, FSCAI, FHRS, CCDS Interventional Cardiology Cardiac Electrophysiology Vascular Medicine and Endovascular Interventions Focused Exam Lactate Level Celine LOCKE MD Sep 20, 2019 15:28
--- NOTE | 2019-09-20 16:07 | Progress Note - Surgery ---
Subjective Date Seen by a Provider: Sep 20, 2019 Time Seen by a Provider: 09:35 Subjective/Events-last exam Patient doing better this morning, went in to afib last night and transferred to ICU. Patient still not having any epigastric abdominal pain, this has resolved. Tolerating diet. Having trouble with bm, feeling constipated, then had bm. Denies no other complaints at this time. Focused Exam Lactate Level 09/18/19 09:08: Lactic Acid Level 0.81 Objective Exam Vital Signs Date Time Temp Pulse Resp B/P (MAP) Pulse Ox O2 Delivery O2 Flow Rate FiO2 09/20/19 14:36 97 Vapotherm 20.00 40 09/20/19 13:00 103 21 110/65 (80) 91 Vapotherm 20.00 40.00 09/20/19 12:50 Vapotherm 20.00 40 09/20/19 12:50 87 09/20/19 12:00 87 17 112/80 (91) 96 Vapotherm 20.00 40.00 09/20/19 12:00 36.7 09/20/19 11:00 80 27 107/61 (76) 95 Vapotherm 20.00 50.00 09/20/19 10:30 100 Vapotherm 20.00 50 09/20/19 10:00 103 21 100/51 (67) 97 Vapotherm 20.00 50.00 09/20/19 09:00 80 21 117/69 (85) 97 Vapotherm 20.00 50.00 09/20/19 08:00 80 18 97/55 (69) 98 Vapotherm 20.00 50.00 09/20/19 08:00 37.0 09/20/19 07:55 Vapotherm 20.00 50 09/20/19 07:00 146 26 105/58 (74) 88 Vapotherm 20.00 50.00 09/20/19 07:00 83 09/20/19 06:59 96 Vapotherm 20.00 50 09/20/19 06:52 Vapotherm 20.00 50.00 09/20/19 06:30 116 20 94/54 (67) 92 Vapotherm 20.00 50.00 09/20/19 06:15 147 20 88/64 (72) 93 Vapotherm 20.00 50.00 09/20/19 06:00 146 25 111/76 (88) 91 Vapotherm 20.00 50.00 09/20/19 05:45 147 17 111/81 (91) 94 Vapotherm 20.00 50.00 09/20/19 05:15 147 22 110/68 (82) 95 Vapotherm 20.00 50.00 09/20/19 05:00 146 24 93/62 (72) 96 Vapotherm 20.00 50.00 09/20/19 04:45 36.7 Vapotherm 10.00 40.00 09/20/19 04:44 147 112/68 (83) 09/20/19 04:38 148 112/74 (87) 09/20/19 04:36 144 104/60 (75) 09/20/19 04:34 150 104/60 (75) 09/20/19 04:24 151 87/56 (66) 09/20/19 02:20 97 Vapotherm 10.00 45 09/20/19 01:00 85 09/20/19 00:00 36.5 84 20 120/64 (82) 98 Vapotherm 10.00 45.00 09/19/19 22:08 83 Vapotherm 10.00 45 09/19/19 21:00 Vapotherm 09/19/19 20:19 36.7 75 20 117/67 (84) 98 Vapotherm 10.00 45.00 09/19/19 19:05 92 Vapotherm 10.00 45 09/19/19 19:00 91 I & O 09/20/19 07:00 Intake Total 1420 ml Output Total 5500 ml Balance -4080 ml Capillary Refill : Less Than 3 Seconds General Appearance: No Apparent Distress, Chronically ill HEENT: PERRL/EOMI, Normal ENT Inspection, Pharynx Normal, Moist Mucous Membranes Neck: Full Range of Motion, Normal Inspection, Non Tender Respiratory: Chest Non Tender, No Accessory Muscle Use, No Respiratory Distress, Accessory Muscle Use Cardiovascular: Regular Rate, Rhythm, Normal Peripheral Pulses Gastrointestinal: non tender, soft, no organomegaly Extremity: Normal Capillary Refill, Normal Inspection, Normal Range of Motion, Non Tender, No Calf Tenderness, No Pedal Edema, Pedal Edema Neurologic/Psychiatric: Alert, Oriented x3, No Motor/Sensory Deficits, Normal Mood/Affect Skin: Normal Color, Warm/Dry Lymphatic: No Adenopathy Results Lab Laboratory Tests 09/20/19 05:46: Glucometer 215H 09/20/19 07:40: White Blood Count 8.4, Red Blood Count 3.49L, Hemoglobin 10.2L, Hematocrit 32L, Mean Corpuscular Volume 91, Mean Corpuscular Hemoglobin 29, Mean Corpuscular Hemoglobin Concent 32, Red Cell Distribution Width 13.5, Platelet Count 275, Mean Platelet Volume 9.4, Neutrophils (%) (Auto) 64, Lymphocytes (%) (Auto) 25, Monocytes (%) (Auto) 9, Eosinophils (%) (Auto) 1, Basophils (%) (Auto) 0, Neutrophils # (Auto) 5.4, Lymphocytes # (Auto) 2.1, Monocytes # (Auto) 0.8, Eosinophils # (Auto) 0.1, Basophils # (Auto) 0.0, Sodium Level 141, Potassium Level 3.8, Chloride Level 96L, Carbon Dioxide Level 33H, Anion Gap 12, Blood Urea Nitrogen 77H, Creatinine 1.29, Estimat Glomerular Filtration Rate 39, BUN/Creatinine Ratio 60, Glucose Level 184H, Calcium Level 8.5, Corrected Calciu m 9.1, Total Bilirubin 0.4, Aspartate Amino Transf (AST/SGOT) 12, Alanine Aminotransferase (ALT/SGPT) 13, Alkaline Phosphatase 37L, Troponin I 0.037H, Total Protein 5.9L, Albumin 3.3 Microbiology 09/18/19 Urine Culture - Final, Complete 3 or more isolates 09/18/19 Blood Culture - Preliminary, Resulted No growth Assessment/Plan Assessment/Plan Assessment/Plan gastritis epigastric abdominal pain constipation Patient pain improved at this time. Protonix/carafate she does not wish to do EGD to evaluate mag citrate prn constipation/bowel regimen Clinical Quality Measures DVT/VTE Risk/Contraindication: Risk Factor Score Per Nursin RFS Level Per Nursing on Admit: 4+=Very High AYALA PEARSON DO Sep 20, 2019 16:07
[2019-09-20] MEDS: ALPRAZolam 0.5 MG (XANAX) TAB PO PRN (19:59)
[2019-09-21] VITALS (14 sets, daily range): BP systolic 101–113; BP diastolic 43–86
[2019-09-21] MEDS: RT-ALBUTEROL INHALER HFA (VENTOLIN HFA) 18 GM IH SCH ×5 (01:00→19:18)
[2019-09-21 03:49] LABS: BASOPHILS % (AUTO) 0 % (0-10); EOSINOPHILS # (AUTO) 0.2 10^3/uL (0.0-0.3); EOSINOPHILS % (AUTO) 2 % (0-10); HEMATOCRIT 29 % (35-52); LYMPHOCYTES # (AUTO) 2.2 X 10^3 (1.0-4.0); LYMPHOCYTES % (AUTO) 32 % (12-44); MEAN CORPUSCULAR HEMOGLOBIN 28 PG (25-34); MEAN CORPUSCULAR HGB CONC 31 G/DL (32-36); MEAN CORPUSCULAR VOLUME 91 FL (80-99); MEAN PLATELET VOLUME 9.7 FL (7.4-10.4); MONOCYTES # (AUTO) 0.7 X 10^3 (0.0-1.0); MONOCYTES % (AUTO) 10 % (0-12); NEUTROPHILS # (AUTO) 3.8 X 10^3 (1.8-7.8); NEUTROPHILS % (AUTO) 55 % (42-75); PLATELET COUNT 259 10^3/uL (130-400); WHITE BLOOD COUNT 6.9 10^3/uL (4.3-11.0)
[2019-09-21 04:10] LABS: POTASSIUM 3.3 MMOL/L (3.6-5.0)
[2019-09-21 04:11] LABS: CALCIUM 8.3 MG/DL (8.5-10.1)
[2019-09-21 04:16] LABS: CREATININE SERUM 1.73 MG/DL (0.60-1.30)
[2019-09-21 04:18] LABS: MAGNESIUM 1.9 MG/DL (1.6-2.4)
--- NOTE | 2019-09-21 05:13 | NUR ---
THIS RN NOTIFIED DR. HOLM OF PATIENT'S POTASSIUM OF 3.3, UNABLE TO REPLACE PER PROTOCOL DUE TO BUN OF 85. NEW ORDER RECEIVED BY DR. HOLM TO REPLACE POTASSIUM PER PROTOCOL.
[2019-09-21] MEDS: ENOXAPARIN 80 MG/0.8 ML (LOVENOX) SYR SC SCH (05:32)
[2019-09-21] MEDS ORDERED: KCL 20 MEQ TAB (K-DUR) PO SCH (06:00)
[2019-09-21] MEDS ORDERED: MAGNESIUM 1 GM/100 ML IVPB 100 ML IV SCH (06:00)
[2019-09-21] MEDS ORDERED: POTASSIUM CL 10MEQ/50ML IVPB 50 ML IV SCH (06:00)
--- NOTE | 2019-09-21 06:08 | Pulmonary Progress Note ---
Subjective Time Seen by a Provider: 06:07 Subjective/Events-last exam Pt is doing better and requiring less oxygen. Sepsis Event Evaluation Height, Weight, BMI Height: '" Weight: lbs. oz. kg; 32.22 BMI Method: Focused Exam Lactate Level 09/18/19 09:08: Lactic Acid Level 0.81 Exam Exam Vital Signs Date Time Temp Pulse Resp B/P (MAP) Pulse Ox O2 Delivery O2 Flow Rate FiO2 09/21/19 05:00 82 19 109/81 (90) 95 Vapotherm 40.00 30.00 09/21/19 04:24 95 Vapotherm 40.00 30 09/21/19 04:00 80 16 106/52 (70) 98 Vapotherm 40.00 30.00 09/21/19 03:58 Vapotherm 40.00 30.00 09/21/19 03:40 Vapotherm 30.00 30.00 09/21/19 03:00 80 16 107/53 (71) 97 NIV Bilevel 30.00 09/21/19 02:26 87 18 99 30.00 09/21/19 02:00 86 14 101/60 (74) 99 NIV Bilevel 30.00 09/21/19 01:19 NIV Bilevel 30.00 09/21/19 01:01 91 22 98 30.00 09/21/19 01:00 91 09/21/19 01:00 97 20 113/56 (75) 98 Vapotherm 15.00 30.00 09/21/19 00:00 Vapotherm 15.00 30 09/21/19 00:00 36.4 09/21/19 00:00 87 17 111/43 (65) 96 Vapotherm 15.00 30.00 09/20/19 23:00 89 20 105/56 (72) 95 Vapotherm 15.00 30.00 09/20/19 22:50 94 Vapotherm 15.00 30 09/20/19 22:00 86 20 93/51 (65) 92 Vapotherm 15.00 30.00 09/20/19 21:00 85 18 109/69 (82) 93 Vapotherm 15.00 30.00 09/20/19 20:04 Vapotherm 15.00 30.00 09/20/19 20:00 88 17 102/74 (83) 96 Vapotherm 20.00 40.00 7/12/20 20:00 Vapotherm 15.00 30 09/20/19 19:33 36.7 09/20/19 19:16 97 Vapotherm 15.00 40 09/20/19 19:00 87 09/20/19 19:00 89 20 110/53 (72) 96 Vapotherm 20.00 40.00 09/20/19 18:00 104 30 127/65 (85) 96 Vapotherm 20.00 40.00 09/20/19 17:00 102 30 136/83 (100) Vapotherm 20.00 40.00 09/20/19 16:00 36.9 09/20/19 16:00 Vapotherm 20.00 40 09/20/19 16:00 85 18 100/47 (64) 93 Vapotherm 20.00 40.00 09/20/19 15:00 90 12 107/46 (66) 98 Vapotherm 20.00 40.00 09/20/19 14:36 97 Vapotherm 20.00 40 09/20/19 14:00 90 16 102/56 (71) 95 Vapotherm 20.00 40.00 09/20/19 13:00 103 21 110/65 (80) 91 Vapotherm 20.00 40.00 09/20/19 12:50 Vapotherm 20.00 40 09/20/19 12:50 87 09/20/19 12:00 87 17 112/80 (91) 96 Vapotherm 20.00 40.00 09/20/19 12:00 36.7 09/20/19 11:00 80 27 107/61 (76) 95 Vapotherm 20.00 50.00 09/20/19 10:30 100 Vapotherm 20.00 50 09/20/19 10:00 103 21 100/51 (67) 97 Vapotherm 20.00 50.00 09/20/19 09:00 80 21 117/69 (85) 97 Vapotherm 20.00 50.00 09/20/19 08:00 80 18 97/55 (69) 98 Vapotherm 20.00 50.00 09/20/19 08:00 37.0 09/20/19 07:55 Vapotherm 20.00 50 09/20/19 07:00 146 26 105/58 (74) 88 Vapotherm 20.00 50.00 09/20/19 07:00 83 09/20/19 06:59 96 Vapotherm 20.00 50 09/20/19 06:52 Vapotherm 20.00 50.00 09/20/19 06:30 116 20 94/54 (67) 92 Vapotherm 20.00 50.00 09/20/19 06:15 147 20 88/64 (72) 93 Vapotherm 20.00 50.00 I & O 09/21/19 07:00 Intake Total 800 ml Output Total 1400 ml Balance -600 ml Height & Weight Height: '" Weight: lbs. oz. kg; 32.22 BMI Method: General Appearance: No Apparent Distress, WD/WN, Chronically ill HEENT: PERRL/EOMI, Normal ENT Inspection, Pharynx Normal, Moist Mucous Membranes Neck: Full Range of Motion, Normal Inspection, Non Tender Respiratory: Chest Non Tender, Lungs Clear, Normal Breath Sounds, No Accessory Muscle Use, No Respiratory Distress, Decreased Breath Sounds Cardiovascular: Regular Rate, Rhythm, No Edema, No Gallop, No JVD, No Murmur, Normal Peripheral Pulses Capillary Refill: Less Than 3 Seconds Gastrointestinal: non tender, soft, no organomegaly Extremity: Normal Capillary Refill, Normal Inspection, Normal Range of Motion, Non Tender, No Calf Tenderness, No Pedal Edema, Pedal Edema Neurologic/Psychiatric: Alert, Oriented x3, No Motor/Sensory Deficits, Normal Mood/Affect Skin: Normal Color, Warm/Dry Lymphatic: No Adenopathy Results Lab Laboratory Tests 09/19/19 12:12 09/20/19 07:40 09/21/19 03:07 Assessment/Plan Assessment/Plan Acute respiratory failure - improving -BiPAP /Vapotherm -Continue to titrate oxygen down -Repeat BNP and PCT -CXR has improved since admission -Oxygen -COVID is negative CHF - Continue Lasix Renal failure -Decrease Lasix to daily NSTEMI -Cardiology following -PT is refusing cath CAD LATONYA BLACKWELL DO Sep 21, 2019 06:08
[2019-09-21] MEDS: SUCRALFATE 1 GM (CARAFATE) TAB PO SCH ×4 (06:17→21:19)
[2019-09-21] MEDS: glyBURIDE 2.5 MG (MICRONASE) TAB PO SCH (06:17)
[2019-09-21] MEDS: FUROSEMIDE 40 MG/4 ML INJ (LASIX) IVP SCH ×2 (06:34→06:35)
--- NOTE | 2019-09-21 08:03 | Diagnostic Imaging Report ---
HISTORY: Heart failure. COMPARISON: 09/19/2019 TECHNIQUE: Frontal view of the chest. FINDINGS: Lung volumes are mildly low. There are airspace opacities in the lung bases. There is a small left pleural effusion. There is central vascular congestion. Overall aeration is mildly improved compared to the prior study. The cardiac silhouette is stable in size. Sternotomy wires and post-CABG changes are seen. There is no pneumothorax. IMPRESSION: 1. Central vascular congestion with bibasilar airspace opacities, likely from edema. There is a small left pleural effusion. Overall aeration appears mildly improved compared to the prior exam. Dictated by: Dictated on workstation # [id number]
[2019-09-21] MEDS: ALPRAZolam 0.5 MG (XANAX) TAB PO PRN (08:14)
[2019-09-21] MEDS: LORATADINE (CLARITIN) 10 MG TAB PO SCH ×2 (08:14→21:19)
[2019-09-21] MEDS: PANTOPRAZOLE 40 MG (PROTONIX) TAB PO SCH ×2 (08:14→21:19)
[2019-09-21] MEDS: ASPIRIN E.C. 81 MG (ECOTRIN) TAB PO SCH (08:15)
[2019-09-21] MEDS: OXYMETAZOLINE (AFRIN) 0.05% NA 30 ML BTL SCH ×2 (08:15→21:20)
[2019-09-21] MEDS: SENNA W/DOCUSATE (SENOKOT S) TABLET PO SCH ×2 (08:15→19:38)
[2019-09-21] MEDS ORDERED: KCL 20 MEQ TAB (K-DUR) PO ONE ×2 (09:00→11:00)
[2019-09-21] MEDS ORDERED: ALPRAZolam 0.5 MG (XANAX) TAB PO PRN (10:15)
--- NOTE | 2019-09-21 10:15 | Physical Therapy Evaluation ---
PT Evaluation-General Medical Diagnosis Admission Date Sep 18, 2019 at 10:56 Medical Diagnosis: acute heart failure Onset Date: Sep 18, 2019 Therapy Diagnosis Therapy Diagnosis: generalized weakness/debility Precautions Precautions/Isolations: Fall Prevention, Standard Precautions Referral Physician: Aga Reason for Referral: Evaluation/Treatment Medical History Pertinent Medical History: CABG, CAD, HTN Current History ER secondary to SOA, WORRELL and weakness Reviewed History: Yes Social History Home: Single Level Current Living Status: Alone Entry Into Home: Stairs With Railing PT Steps Into Home: 3 Prior Prior Level of Function SCALE: Activities may be completed with or without assistive devices. 1-Ccjltmgcez-cxxfmje completes the activity by him/herself with no assistance from a helper. 5-Set-up or Clean-up Assistance-helper sets up or cleans up; patient completes activity. [place] assists only prior to or following the activity. 4-Supervision or Touching Assistance-helper provides verbal cues and/or touching/steadying and/or contact guard assistance as patient completes activit y. Assistance may be provided throughout the activity or intermittently. 3-Partial/Moderate Assistance-helper does LESS THAN HALF the effort. Dick[place] lifts, holds or supports trunk or limbs, but provides less than half the effort. 2-Substantial/Maximal Assistance-helper does MORE THAN HALF the effort. Dick[place] lifts or holds trunk or limbs and provides more than half the effort. 4-Pprpuvenh-pcfhxe does ALL the effort. Patient does none of the effort to complete the activity. Or, the assistance of 2 or more helpers is required for the patient to complete the activity. If activity was not attempted, code reason: 7-Patient Refused. 9-Not Applicable-not attempted and the patient did not perform the activity before the current illness, exacerbation or injury. 10-Not Attempted due to Environmental Limitations-(lack of equipment, weather restraints, etc.). 88-Not Attempted due to Medical Conditions or Safety Concerns. Bed Mobility: 6 Transfers (B,C,W/C): 6 Gait: 6 Stairs: 6 Indoor Mobility (Ambulation): Independent Stairs: Independent Prior Devices Use: Walker PT Evaluation-Current Subjective Patient agrees to PT. She reports she is very tired and doesn't want to do much today. Pain Numeric Pain Scale: 0-No Pain Location: No Pain Reported Objective Patient Orientation: Person, Time, Situation Attachments: Oxygen (vapotherm), Renae Catheter, IV ROM/Strength ROM Lower Extremities bilateral LE WFL Strength Lower Extremities 3/5 grossly bilateral LE Integumentary/Posture Integumentary refer to nursing notes Bladder Incontinence: Renae Cath Posture WFL Neuromuscular (Tone, Coordination, Reflexes) grossly intact Sensory Vision: Functional Hearing: Functional Sensation Right Lower Extremit: Intact Sensation Left Lower Extremity: Intact Transfers Roll Left to Right (QC): 4 Lying to Sitting/Side of Bed(Q: 4 Sit to Stand (QC): 4 Chair/Vog-vk-Almfj Xfer(QC): 4 Gait Does the Patient Walk?: Yes Mode of Locomotion: Walk Anticipated Mode of Locomotion: Walk Walk 10 feet (QC): 4 Gait Assistive Device: FWW Comments/Gait Description shuffle gait sequence/limited due to vapotherm Wheelchair Training Does the Pt Use a Wheelchair?: No Balance Sitting Static: Normal Sitting Dynamic: Normal Standing Static: Fair Standing Dynamic: Fair Assessment/Needs 84 y.o. female, will benefit from skilled PT to address functional strength and mobility to improve current LOF. Patient does cease treatment due to fatigue and lethargy. PT educated patient on importance of participating with therapy to increase strength and to address pulmonary function, however, patient declined to continue. Rehab Potential: Fair Post Rehab Potential-Barriers: compliance PT Mid Level Developer Goals Mid Level Developer Goals PT Senior Living Goals Time Frame: Oct 03, 2019 Roll Left & Right (QC): 6 Sit to Lying (QC): 6 Lying-Sitting on Side/Bed(QC): 6 Sit to Stand (QC): 6 Chair/Bug-uw-Bduuo Xfer(QC): 6 Toilet Transfer (QC): 6 Does the Patient Walk: Yes Walk 10 feet (QC): 6 Walk 50ft with 2 Turns (QC): 6 PT Plan Problem List Problem List: Activity Tolerance, Functional Strength, Safety, Balance, Gait, Transfer, Bed Mobility Treatment/Plan Treatment Plan: Continue Plan of Care Treatment Plan: Bed Mobility, Education, Functional Activity Chip, Functional Strength, Gait, Safety, Therapeutic Exercise, Transfers Treatment Duration: Oct 03, 2019 Frequency: 6 times per week Estimated Hrs Per Day: .25 hour per day Patient and/or Family Agrees t: Yes Time/GCodes Time In: 903 Time Out: 917 Total Billed Treatment Time: 14 Total Billed Treatment 1 visit EVModC 14 min SHIRA MCKAY PT Sep 21, 2019 10:15
--- NOTE | 2019-09-21 10:37 | Progress Note - Hospitalist ---
CARMEN HANNAH MED STUDENT 09/21/19 1037: Subjective HPI/CC On Admission Date Seen by Provider: Sep 21, 2019 Time Seen by Provider: 08:45 Chief complaint: acute dyspnea History of present illness: This is an 84-year-old white female clinic patient of [facility] for nearly 17 years who has a past medical history of bypass surgery with noncompliance with follow-up with cardiology, diabetes mellitus on oral meds, hypertension and severe osteoarthritis who presents to the ER by ambulance after she called them because of worsening shortness of breath. She rarely gets out during this pandemic but she did go and eat at [facility] 2 weeks ago with her eoetsvmg-td-ody. She has been swab for COVID. Patient appears to have fluid overload with congestive heart failure requiring BiPAP in the ER now weaned down to nasal cannula and has responded well to diuresis. Patient has felt sick for 1 month felt like it would get better. Denies any fever or cough. Subjective/Events-last exam Ms. Babb reports feeling improved today, no longer complains of SOB, denies having a cough, fever, or chills. She complains of being cold and having chills, as well as pain in L leg on palpation and itching of both legs. She also complains of fatigue, her eyes were closed for much of the visit. She has a runny nose and sore throat that she attributes to the nasal cannula and being cold. Review of Systems General: Chills, Fatigue HEENT: No Visual Changes, No Sinus Congestion; Post Nasal Drip, Sore Throat (attributes to oxygen) Pulmonary: No Dyspnea, No Cough Cardiovascular: No: Chest Pain, Palpitations Gastrointestinal: No: Nausea, Vomiting, Abdominal Pain, Diarrhea, Constipation Genitourinary: No Dysuria, No Frequency, No Incontinence Neurological: No: Weakness, Numbness Objective Exam Vital Signs Vital Signs Date Time Temp Pulse Resp B/P (MAP) Pulse Ox O2 Delivery O2 Flow Rate FiO2 09/21/19 08:00 Vapotherm 20.00 30 09/21/19 08:00 36.5 09/21/19 07:28 97 09/21/19 05:00 82 19 109/81 (90) Capillary Refill : Less Than 3 Seconds General Appearance: No Apparent Distress, Obese HEENT: PERRL/EOMI; No Pale Conjunctivae (L), No Pale Conjunctivae (R), No Scleral Icterus (L), No Scleral Icterus (R) Neck: Normal Inspection, Non Tender; No Lymphadenopathy (L), No Lymphadenopathy (R) Respiratory: Lungs Clear, Normal Breath Sounds, No Accessory Muscle Use, No Re spiratory Distress Cardiovascular: Regular Rate, Rhythm, No Murmur, Normal Peripheral Pulses Extremity: Normal Capillary Refill; No Non Tender (L leg pain when evaluating for edema); Pedal Edema, Other (bilateral LE pruritis) Neurologic/Psychiatric: Alert, Oriented x3, Other (may have excess sedation) Skin: Normal Color, Warm/Dry Results/Procedures Lab Laboratory Tests 09/21/19 03:07 Patient resulted labs reviewed. Assessment/Plan Assessment and Plan Assess & Plan/Chief Complaint Assessment: 1. acute CHF 2. new onset AF RVR 3. suspected excess sedation 4. CAD w/ history of bypass 5. DM 6. HTN 7. Arthritis Plan: 1. continue lasix 2. consider decreasing benzodiazepine 3. continue wean from vapotherm 4. DVT prophylaxis 5. home medications Clinical Quality Measures DVT/VTE Risk/Contraindication: Risk Factor Score Per Nursin RFS Level Per Nursing on Admit: 4+=Very High TELMA MARTINEZ DO 09/21/19 1303: Subjective Subjective/Events-last exam Pt appears to be really drowsy Will DC Ativan O2 sat maintained on Vapotherm Normal sinus rhythm currently Pt appears to be very debilitated acutely PT and OT and rehab will be in place Will try to wean off O2 today Review of Systems General: Fatigue, Malaise Pulmonary: Dyspnea Cardiovascular: Edema Neurological: Confusion Objective Exam General Appearance: No Apparent Distress, WD/WN, Chronically ill, Other (declined) Respiratory: Crackles, Decreased Breath Sounds Cardiovascular: Regular Rate, Rhythm, No Gallop, No JVD, No Murmur, Normal Peripheral Pulses Extremity: Pedal Edema Neurologic/Psychiatric: Alert, Oriented x3, No Motor/Sensory Deficits, Normal Mood/Affect, Other (may have excess sedation, confusion) Assessment/Plan Assessment and Plan Assess & Plan/Chief Complaint Assessment: Respiratory failure AF with RVR CHF DM Subtle confusion Plan: ICU Minimize Ativan Prognosis guarded Supervisory-Addendum Brief Verification & Attestation Participated in pt care: history, MDM, physical Personally performed: exam, history, MDM, supervision of care Care discussed with: Medical Student Procedures: n/a Results interpretation: Verified all documentation Verification and Attestation of Medical Student E/M Service A medical student performed and documented this service in my presence. I reviewed and verified all information documented by the medical student and made modifications to such information, when appropriate. I personally performed the physical exam and medical decision making. Telma Martinez, Sep 21, 2019,21:15 CARMEN HANNAH MED STUDENT Sep 21, 2019 10:37 TELMA MARTINEZ DO Sep 21, 2019 13:03
--- NOTE | 2019-09-21 10:50 | NUR ---
IRF Evaluation Determination: Accepted Chart review complete and findings discussed with Dr. Yung - patient accepted. Anticipate admission date, unknown. Thank you for this referral.
--- NOTE | 2019-09-21 11:26 | NUR ---
Pt is Voodoo and desires contact with Fr MCGUIRE. texted FRNathaniel and will provide Communion later in the day.
--- NOTE | 2019-09-21 12:07 | Occupational Therapy Eval ---
OT Evaluation-General/PLF Medical Diagnosis Admission Date Sep 18, 2019 at 10:56 Medical Diagnosis: acute heart failure Onset Date: Sep 18, 2019 Therapy Diagnosis Therapy Diagnosis: decr self care, weakness, decr funct mob, decr act tolerance Precautions Precautions/Isolations: Fall Prevention, Standard Precautions Referral Physician: Aga Referral Reason: Evaluation/Treatment Medical History Pertinent Medical History: CABG, CAD, DM, HTN, [place], OA Additional Medical History Hx ovarian CA. NSTEMI Current History Admitted with SOB, weakness. CHF, BiPap Reviewed History: Yes Social History Home: Single Level Current Living Status: Alone Entry Into Home: Stairs With Railing Steps Into Home: 3 ADL-Prior Level of Function SCALE: Activities may be completed with or without assistive devices. 5-Bgusofwwbb-aumqkts completes the activity by him/herself with no assistance from a helper. 5-Set-up or Clean-up Assistance-helper sets up or cleans up; patient completes activity. [place] assists only prior to or following the activity. 4-Supervision or Touching Assistance-helper provides verbal cues and/or touching/steadying and/or contact guard assistance as patient completes activity. Assistance may be provided throughout the activity or intermittently. 3-Partial/Moderate Assistance-helper does LESS THAN HALF the effort. [place] lifts, holds or supports trunk or limbs, but provides less than half the effort. 2-Substantial/Maximal Assistance-helper does MORE THAN HALF the effort. [place] lifts or holds trunk or limbs and provides more than half the effort. 5-Iuauthrhy-jmmtmf does ALL the effort. Patient does none of the effort to complete the activity. Or, the assistance of 2 or more helpers is required for the patient to complete the activity. If activity was not attempted, code reason: 7-Patient Refused. 9-Not Applicable-not attempted and the patient did not perform the activity before the current illness, exacerbation or injury. 10-Not Attempted due to Environmental Limitations-(lack of equipment, weather restraints, etc.). 88-Not Attempted due to Medical Conditions or Safety Concerns. ADL PLOF Comments Pt reported that she was previously able to manage her self care and care for her home. 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 Self Care: Independent Functional Cognition: Independent DME/Equipment: Shower OT Current Status Subjective Pt seen in room, up in recliner, agreeable to OT. Pain reported 0/10 Appearance Alert, cooperative Mental Status/Objective Patient Orientation: Person, Place, Time, Situation Attachments: Renae Catheter, IV, Oxygen (Vapotherm) Current Glasses/Contacts: Yes Hand Dominance: Right Upper Extremity ROM Grossly WFL bilat Upper Extremity Strength Grossly 4/5 bilat Edema: LEs ADL-Treatment ADL-Current Pt reported that she has been able to feed herself and was observed to get a drink of water. She said that she was very tired from getting up to recliner with PT. Education OT Patient Education: Purpose of tx/functional activities, Rehab process Teaching Recipient: Patient Teaching Methods: Discussion Response to Teaching: Verbalize Understanding OT Short Term Goals Short Term Goals Time Frame: Sep 28, 2019 Oral hygiene: 5 Upper body dressin OT Conduit Reamer Operator Goals Conduit Reamer Operator Goals Time Frame: Oct 12, 2019 Eating (QC): 6 Oral Hygiene (QC): 6 Toileting Hygiene (QC): 6 Shower/Bathe Self (QC): 6 Upper Body Dressing (QC): 6 Lower Body Dressing (QC): 6 On/Off Footwear (QC): 6 Additional Goals: 1-Demonstrate ADL Tasks, 2-Verbalize Understanding, 3- ImproveStrength/Chip 1=Demonstrate adherence to instructed precautions during ADL tasks. 2=Patient will verbalize/demonstrate understanding of assistive devices/modifications for ADL. 3=Patient will improve strength/tolerance for activity to enable patient to perform ADL's. OT Education/Plan Problem List/Assessment Assessment: Decreased Activ Tolerance, Decreased UE Strength, Dependent Transfers, Impaired Self-Care Skills Pt would benefit from skilled OT to increase her independence in basic self care to allow her to safely return to her home to live alone Discharge Recommendations Plan/Recommendations: Continue POC Therapy Discharge Recommendati: Post Acute OT Treatment Plan/Plan of Care Treatment,Training & Education: Yes Patient would benefit from OT for education, treatment and training to promote independence in ADL's, mobility, safety and/or upper extremity function for ADL's. Plan of Care: ADL Retraining, Functional Mobility, UE Funct Exercise/Act, UE Neuromus Re-Ed/Coord Treatment Duration: Oct 12, 2019 Frequency: 5 times per week Estimated Hrs Per Day: .5 hour per day Agreement: Yes Rehab Potential: Fair Time/GCodes Start Time: 11:10 Stop Time: 11:22 Total Time Billed (hr/min): 12 Billed Treatment Time visit, 12 minutes evaluation moderate intensity JAJA BELL OT Sep 21, 2019 12:07
--- NOTE | 2019-09-21 12:44 | NUR ---
CM/SS visited with the patient for discharge planning. The patient reports that she is currently living at home alone. At home she does use a walker to get around. She states that she does everything that she can by herself. The patient does have family in town including her son, bmmbsxyp-iw-hqe, and grandchildren. CM/SS asked if they help with any needs in the home if she needed it. She stated they would, but she doesn't ask them because they are busy. During the Pandemic, her son has been helping with grocery peanut picker and delivery. CM/SS discussed [employer] grocery delivery. The patient reports she is going to call and set it up due to having difficulty getting up/down the 3 stairs at the entrance of home. DME: The patient uses a DME in [place] but is unsure of the name. She states that is where she got her eilv-iuuxgty-nnakld with a seat. The patient also has a shower seat. The patient is wearing oxygen in the room but denies use at home. CM/SS will watch to see if there is a need at discharge. Home Health: The patient used in the past but that was around 12 years ago. She did ask if it was something that she could use. CM/SS discussed this with her and will follow with physician recommendation. Paid caregivers: None. CM/SS will continue to follow patient for discharge planning.
--- NOTE | 2019-09-21 12:50 | NUR ---
This nurse called report to Angelina RN on 4th floor. Patient transferred by chair to room 403 by this nurse. Angelina at bedside after patients arrival to room.
--- NOTE | 2019-09-21 13:15 | NUR ---
Report from Cande MENDOZA, patient to room 403 with belongings. Patient oriented to room and surroundings, and call light within reach. Patients voices no c/o pain or discomfort at this time. Will assume care of patient at this time.
--- NOTE | 2019-09-21 15:05 | Cardiology Progress Note ---
Cardiology SOAP Progress Note Subjective: Improved shortness of breath. Objective: I&O/Vital Signs 09/21/19 09/21/19 09/21/19 09/21/19 03:40 03:58 04:00 04:00 Pulse 80 Resp 16 B/P (MAP) 106/52 (70) Pulse Ox 98 O2 Delivery Vapotherm Vapotherm Vapotherm Vapotherm O2 Flow Rate 30.00 40.00 30.00 40.00 30.00 30.00 30.00 FiO2 30 09/21/19 09/21/19 09/21/19 09/21/19 04:24 05:00 06:45 07:00 Pulse 82 94 97 Resp 19 27 B/P (MAP) 109/81 (90) 112/55 (74) Pulse Ox 95 95 96 O2 Delivery Vapotherm Vapotherm Vapotherm O2 Flow Rate 40.00 40.00 40.00 30.00 30.00 FiO2 30 09/21/19 09/21/19 09/21/19 09/21/19 07:16 07:28 08:00 08:00 Temp 36.5 Pulse 96 Resp 18 B/P (MAP) 102/47 (65) Pulse Ox 97 89 O2 Delivery Vapotherm Vapotherm Vapotherm O2 Flow Rate 20.00 20.00 20.00 30.00 30.00 FiO2 30 09/21/19 09/21/19 09/21/19 09/21/19 08:00 09:00 10:00 10:42 Pulse 87 90 Resp 20 28 B/P (MAP) 107/51 (69) Pulse Ox 93 94 100 O2 Delivery Vapotherm Vapotherm Vapotherm High Flow N/C O2 Flow Rate 20.00 20.00 20.00 5.00 30.00 30.00 FiO2 30 09/21/19 09/21/19 09/21/19 09/21/19 11:00 12:00 12:00 12:00 Temp 36.6 Pulse 87 90 B/P (MAP) 102/68 (79) 105/86 (92) Pulse Ox 100 98 O2 Delivery Vapotherm High Flow N/C Vapotherm O2 Flow Rate 20.00 2.00 20.00 30.00 30.00 09/21/19 09/21/19 12:06 14:54 Pulse Ox 93 O2 Delivery High Flow N/C High Flow N/C O2 Flow Rate 2.00 2.00 09/21/19 00:00 Intake Total 720 ml Output Total 600 ml Balance 120 ml Constitutional: apparent distress, PERRL, well-developed Respiratory: chest is bilaterally symmetric, other (decreased breath sounds bilaterally.) Cardiovascular: regular rate-rhythm, S1 and S2 Gastrointestional: soft, audible bowel sounds Extremities: normal range of motion, non-tender, normal inspection Neurologic/Psychiatric: no motor/sensory deficits, alert, normal mood/affect, oriented x 3 Skin: normal color, warm/dry Results/Procedures: Labs Laboratory Tests 09/21/19 03:07: White Blood Count 6.9, Red Blood Count 3.17L, Hemoglobin 9.0L, Hematocrit 29L, Mean Corpuscular Volume 91, Mean Corpuscular Hemoglobin 28, Mean Corpuscular Hemoglobin Concent 31L, Red Cell Distribution Width 14.0, Platelet Count 259, Mean Platelet Volume 9.7, Neutrophils (%) (Auto) 55, Lymphocytes (%) (Auto) 32, Monocytes (%) (Auto) 10, Eosinophils (%) (Auto) 2, Basophils (%) (Auto) 0, Neutrophils # (Auto) 3.8, Lymphocytes # (Auto) 2.2, Monocytes # (Auto) 0.7, Eosinophils # (Auto) 0.2, Basophils # (Auto) 0.0, Sodium Level 144, Potassium Level 3.3L, Chloride Level 98, Carbon Dioxide Level 32, Anion Gap 14, Blood Urea Nitrogen 85H, Creatinine 1.73H, Estimat Glomerular Filtration Rate 28, BUN/Creatinine Ratio 49, Glucose Level 94, Calcium Level 8.3L, Phosphorus Level 4.0, Magnesium Level 1.9, B-Type Natriuretic Peptide 57.7, Procalcitonin 0.32H Microbiology 09/20/19 MRSA Screen - Final, Complete MRSA not isolated 09/18/19 Urine Culture - Final, Complete 3 or more isolates 09/18/19 Blood Culture - Preliminary, Resulted No growth A/P: Assessment/Dx: Acute respiratory failure Congestive heart failure Coronary artery disease Hypertension Plan: Status post acute respiratory failure was on Vapotherm, currently better, breathing better responded well to diuretics. Acute diastolic Congestive heart failure, acute probably left ventricular systolic dysfunction ischemic in nature, , started on diuretics. Restart home medication monitor. Echocardiogram shows normal LV function with LVH. Non-STEMI, Coronary artery disease history of CABG in 2010 using COLES to LAD, vein graft to the right coronary artery and vein graft to the circumflex artery, nor recent cardiac workup. Upward trend of troponin. Plaque rupture cannot be ruled out. I discussed at length with the patient but she refused coronary a ngiography. She understands that she could have recurrent NM or in the future. However she does not want coronary angiography. Episode of atrial fibrillation, patient refused oral anticoagulation. She understands the risk of stroke. Continue aspirin and Plavix. History of chest pain in the past, no recent episodes of chest pain Hypertension, resume home medication monitor blood pressure Hyperlipidemia, evaluate lipid profile and resume home medication Diabetes mellitus, followed and managed by primary care physician Thank you for your consultation. Please call me if you have any questions. Jessica Locke MD, FACP, FACC, FSCAI, FHRS, CCDS Interventional Cardiology Cardiac Electrophysiology Vascular Medicine and Endovascular Interventions Celine LOCKE MD Sep 21, 2019 15:05
--- NOTE | 2019-09-21 22:47 | Progress Note - Surgery ---
Subjective Date Seen by a Provider: Sep 21, 2019 Time Seen by a Provider: 08:39 Subjective/Events-last exam Patient denies any further abdominal pain or discomfort. The epigastric abdominal pain is still resolved. She does not wish to pursue any further. She is happy on medication she is on. Denies any issues currently with bowels. Objective Exam Vital Signs Date Time Temp Pulse Resp B/P (MAP) Pulse Ox O2 Delivery O2 Flow Rate FiO2 09/21/19 21:28 96 09/21/19 20:08 36.4 88 20 108/64 (79) 96 Nasal Cannula 2.00 09/21/19 20:00 High Flow N/C 2.00 09/21/19 19:19 97 High Flow N/C 2.00 09/21/19 16:44 36.1 96 18 110/60 (77) 97 Nasal Cannula 2.00 09/21/19 15:51 36.6 94 93 28 09/21/19 14:54 93 High Flow N/C 2.00 09/21/19 13:17 97 09/21/19 12:06 High Flow N/C 2.00 09/21/19 12:00 90 105/86 (92) 98 Vapotherm 20.00 30.00 09/21/19 12:00 High Flow N/C 2.00 09/21/19 12:00 36.6 09/21/19 11:00 87 102/68 (79) 100 Vapotherm 20.00 30.00 09/21/19 10:42 100 High Flow N/C 5.00 09/21/19 10:00 90 28 94 Vapotherm 20.00 30.00 09/21/19 09:00 87 20 107/51 (69) 93 Vapotherm 20.00 30.00 09/21/19 08:00 Vapotherm 20.00 30 09/21/19 08:00 36.5 09/21/19 08:00 96 18 102/47 (65) 89 Vapotherm 20.00 30.00 09/21/19 07:28 97 Vapotherm 20.00 30 09/21/19 07:16 Vapotherm 20.00 30.00 09/21/19 07:00 97 27 112/55 (74) 96 Vapotherm 40.00 30.00 09/21/19 06:45 94 09/21/19 05:00 82 19 109/81 (90) 95 Vapotherm 40.00 30.00 09/21/19 04:24 95 Vapotherm 40.00 30 09/21/19 04:00 80 16 106/52 (70) 98 Vapotherm 40.00 30.00 09/21/19 04:00 Vapotherm 30.00 30 09/21/19 03:58 Vapotherm 40.00 30.00 09/21/19 03:40 Vapotherm 30.00 30.00 09/21/19 03:00 80 16 107/53 (71) 97 NIV Bilevel 30.00 09/21/19 02:26 87 18 99 30.00 09/21/19 02:00 86 14 101/60 (74) 99 NIV Bilevel 30.00 09/21/19 01:19 NIV Bilevel 30.00 09/21/19 01:01 91 22 98 30.00 09/21/19 01:00 91 09/21/19 01:00 97 20 113/56 (75) 98 Vapotherm 15.00 30.00 09/21/19 00:00 Vapotherm 15.00 30 09/21/19 00:00 36.4 09/21/19 00:00 87 17 111/43 (65) 96 Vapotherm 15.00 30.00 09/20/19 23:00 89 20 105/56 (72) 95 Vapotherm 15.00 30.00 09/20/19 22:50 94 Vapotherm 15.00 30 I & O 09/21/19 07:00 Intake Total 1100 ml Output Total 1650 ml Balance -550 ml Capillary Refill : Less Than 3 Seconds General Appearance: No Apparent Distress, WD/WN, Chronically ill, Other (declined) HEENT: PERRL/EOMI; No Pale Conjunctivae (L), No Pale Conjunctivae (R), No Scleral Icterus (L), No Scleral Icterus (R) Neck: Normal Inspection, Non Tender; No Lymphadenopathy (L), No Lymphadenopathy (R) Respiratory: Chest Non Tender, No Accessory Muscle Use, No Respiratory Distress, Decreased Breath Sounds Cardiovascular: Regular Rate, Rhythm, Normal Peripheral Pulses Gastrointestinal: non tender, soft, no organomegaly Extremity: No Calf Tenderness; Pedal Edema Neurologic/Psychiatric: Alert, Oriented x3, No Motor/Sensory Deficits, Normal Mood/Affect, Other (may have excess sedation, confusion) Skin: Normal Color, Warm/Dry Lymphatic: No Adenopathy Results Lab Laboratory Tests 09/21/19 03:07: White Blood Count 6.9, Red Blood Count 3.17L, Hemoglobin 9.0L, Hematocrit 29L, Mean Corpuscular Volume 91, Mean Corpuscular Hemoglobin 28, Mean Corpuscular Hemoglobin Concent 31L, Red Cell Distribution Width 14.0, Platelet Count 259, Mean Platelet Volume 9.7, Neutrophils (%) (Auto) 55, Lymphocytes (%) (Auto) 32, Monocytes (%) (Auto) 10, Eosinophils (%) (Auto) 2, Basophils (%) (Auto) 0, Neutrophils # (Auto) 3.8, Lymphocytes # (Auto) 2.2, Monocytes # (Auto) 0.7, Eosinophils # (Auto) 0.2, Basophils # (Auto) 0.0, Sodium Level 144, Potassium Level 3.3L, Chloride Level 98, Carbon Dioxide Level 32, Anion Gap 14, Blood Urea Nitrogen 85H, Creatinine 1.73H, Estimat Glomerular Filtration Rate 28, BUN/Creatinine Ratio 49, Glucose Level 94, Calcium Level 8.3L, Phosphorus Level 4.0, Magnesium Level 1.9, B-Type Natriuretic Peptide 57.7, Procalcitonin 0.32H Microbiology 09/20/19 MRSA Screen - Final, Complete MRSA not isolated 09/18/19 Urine Culture - Final, Complete 3 or more isolates 09/18/19 Blood Culture - Preliminary, Resulted No growth Assessment/Plan Assessment/Plan Assessment/Plan gastritis epigastric abdominal pain constipation Paitent GI symtpoms have resolved at this time She does not wish to pursue any further such as EGD. Would keep on current regimen for GERD/Constipation Protonix/carafate mag citrate prn constipation/bowel regimen Will sign off, call if needed. Clinical Quality Measures DVT/VTE Risk/Contraindication: Risk Factor Score Per Nursin RFS Level Per Nursing on Admit: 4+=Very High AYALA PEARSON DO Sep 21, 2019 22:47
[2019-09-22] VITALS (14 sets, daily range): BP systolic 81–146; BP diastolic 53–79
[2019-09-22] MEDS: CHLORASEPTIC LOZENGE MM PRN ×2 (03:00→05:11)
[2019-09-22] MEDS: RT-ALBUTEROL INHALER HFA (VENTOLIN HFA) 18 GM IH SCH ×4 (03:01→18:47)
[2019-09-22] MEDS ORDERED: ACETAMINOPHEN 325 MG TABLET PO PRN (03:30)
[2019-09-22] MEDS: glyBURIDE 2.5 MG (MICRONASE) TAB PO SCH (05:11)
[2019-09-22] MEDS: ENOXAPARIN 80 MG/0.8 ML (LOVENOX) SYR SC SCH (05:12)
[2019-09-22] MEDS: SUCRALFATE 1 GM (CARAFATE) TAB PO SCH ×4 (05:13→21:32)
[2019-09-22] MEDS: ONDANSETRON 4 MG/2 ML (SDV) Z0FRAN IVP PRN (05:43)
[2019-09-22 05:55] LABS: BASOPHILS % (AUTO) 1 % (0-10); EOSINOPHILS # (AUTO) 0.2 10^3/uL (0.0-0.3); EOSINOPHILS % (AUTO) 3 % (0-10); HEMATOCRIT 26 % (35-52); HEMOGLOBIN 8.1 G/DL (11.5-16.0); LYMPHOCYTES # (AUTO) 1.8 X 10^3 (1.0-4.0); LYMPHOCYTES % (AUTO) 31 % (12-44); MEAN CORPUSCULAR HEMOGLOBIN 29 PG (25-34); MEAN CORPUSCULAR HGB CONC 31 G/DL (32-36); MEAN CORPUSCULAR VOLUME 93 FL (80-99); MEAN PLATELET VOLUME 10.1 FL (7.4-10.4); MONOCYTES # (AUTO) 0.6 X 10^3 (0.0-1.0); MONOCYTES % (AUTO) 11 % (0-12); NEUTROPHILS # (AUTO) 3.2 X 10^3 (1.8-7.8); NEUTROPHILS % (AUTO) 55 % (42-75); PLATELET COUNT 219 10^3/uL (130-400); RED CELL DISTRIBUTION WIDTH 13.6 % (10.0-14.5); WHITE BLOOD COUNT 5.8 10^3/uL (4.3-11.0)
[2019-09-22 06:01] LABS: POTASSIUM 3.9 MMOL/L (3.6-5.0)
[2019-09-22 06:02] LABS: CALCIUM 8.3 MG/DL (8.5-10.1)
[2019-09-22 06:06] LABS: PHOSPHORUS 3.5 MG/DL (2.3-4.7)
[2019-09-22 06:07] LABS: CREATININE SERUM 1.47 MG/DL (0.60-1.30)
[2019-09-22 06:09] LABS: MAGNESIUM 2.1 MG/DL (1.6-2.4)
--- NOTE | 2019-09-22 09:15 | NUR ---
0915: ICU called to notify this RN that pt was tachycardic. Pt was working with occupational therapy at this time. This RN assessed pt's heart rate after therapy was done. 0935: ICU telemetry called again to notify this RN that pt was tachycardic with PVCs present. Recommendation of EKG. 0950: This RN performed an EKG on pt. Notified Dr. Locke, [employer] of the results, as well as primary, Dr. Yung. 1000: Dr. Yung made the decision to move pt to ICU. Dr. Locke gave order to administer cardizem 10mg IV x1. 1010: Pt's vitals taken per Dr. Yung's request. Pt's heart rate 136, BP 138/82, 95% on 3L highflow N/C, and temperature of 98.1. Dr. Locke gave order to administer cardizem 10mg IV x1. 1030: Cardizem administered via IV. 1040: Pt transferred to ICU-3. Report given to REJI Dodson at 1050. Ivory assumed care of pt at this time.
[2019-09-22] MEDS: PANTOPRAZOLE 40 MG (PROTONIX) TAB PO SCH ×2 (09:32→21:32)
[2019-09-22] MEDS: ASPIRIN E.C. 81 MG (ECOTRIN) TAB PO SCH (09:32)
[2019-09-22] MEDS: OXYMETAZOLINE (AFRIN) 0.05% NA 30 ML BTL SCH ×2 (09:32→21:35)
[2019-09-22] MEDS: LORATADINE (CLARITIN) 10 MG TAB PO SCH ×2 (09:32→21:32)
[2019-09-22] MEDS: SENNA W/DOCUSATE (SENOKOT S) TABLET PO SCH ×2 (09:32→21:32)
[2019-09-22] MEDS: FUROSEMIDE 40 MG/4 ML INJ (LASIX) IVP SCH (09:32)
--- NOTE | 2019-09-22 10:16 | Occupational Ther Daily Note ---
OT Current Status-Daily Note Subjective Pt seated in recliner, stating she is very cold and would like warm blankets. OT gathered blankets and assisted pt with getting comfortable. OT then introduced self, pt agreeable to OT Tx. Mental Status/Objective Attachments: Renae Catheter, Oxygen, Telemetry ADL-Treatment Therapy Code Descriptions/Definitions Functional [place] Measure: 0=Not Assessed/NA 4=Minimal Assistance 1=Total Assistance 5=Supervision or Setup 2=Maximal Assistance 6=Modified [place] 3=Moderate Assistance 7=Complete IndependenceSCALE: Activities may be completed with or without assistive devices. 2-Gnjqzsipqu-munyhdu completes the activity by him/herself with no assistance from a helper. 5-Set-up or Clean-up Assistance-helper sets up or cleans up; patient completes activity. [place] assists only prior to or following the activity. 4-Supervision or Touching Assistance-helper provides verbal cues and/or touching/steadying and/or contact guard assistance as patient completes activity. Assistance may be provided throughout the activity or intermittently. 3-Partial/Moderate Assistance-helper does LESS THAN HALF the effort. [place] lifts, holds or supports trunk or limbs, but provides less than half the effort. 2-Substantial/Maximal Assistance-helper does MORE THAN HALF the effort. [place] lifts or holds trunk or limbs and provides more than half the effort. 1-Hmbfxvncz-erfznr does ALL the effort. Patient does none of the effort to com plete the activity. Or, the assistance of 2 or more helpers is required for the patient to complete the activity. If activity was not attempted, code reason: 7-Patient Refused. 9-Not Applicable-not attempted and the patient did not perform the activity before the current illness, exacerbation or injury. 10-Not Attempted due to Environmental Limitations-(lack of equipment, weather restraints, etc.). 88-Not Attempted due to Medical Conditions or Safety Concerns. Other Treatment Pt in recliner, agreeable to OT Tx. OT assisted pt with getting comfortable with warm blankets. Pt given option between ADLs and UE exercises, pt chose ADLs. OT handed pt her hairbrush in her right hand, pt then able to brush the right side, back and top of her hair, requiring min A with her left side. Pt then states she would like to brush her teeth. Nursing notified pt that ICU had called and pt's heart rate had increased while brushing her hair. Nursing stated pt OK to brush her teeth but to take it easy. OT gathered supplies for teeth brushing, setting up toothbrush for pt, then handing pt toothbrush. Pt brushed her teeth taking re st breaks as needed, then swishing her mouth with water, and spitting into container held by OT. OT cleaned up from ADL tx. Pt reports she feels better. Post OT Tx, pt at recliner, all needs met, and call light in reach. Education OT Patient Education: Correct positioning, Energy conservation, Modified ADL techniques, Progress toward Goal/Update tx plan, Purpose of tx/functional activities Teaching Recipient: Patient Teaching Methods: Discussion Response to Teaching: Verbalize Understanding OT Short Term Goals Short Term Goals Time Frame: Sep 28, 2019 Oral hygiene: 5 Upper body dressin OT Half-Way Goals Web Knitter Goals Time Frame: Oct 12, 2019 Eating (QC): 6 Oral Hygiene (QC): 6 Toileting Hygiene (QC): 6 Shower/Bathe Self (QC): 6 Upper Body Dressing (QC): 6 Lower Body Dressing (QC): 6 On/Off Footwear (QC): 6 Additional Goals: 1-Demonstrate ADL Tasks, 2-Verbalize Understanding, 3- ImproveStrength/Chip 1=Demonstrate adherence to instructed precautions during ADL tasks. 2=Patient will verbalize/demonstrate understanding of assistive devices/modifications for ADL. 3=Patient will improve strength/tolerance for activity to enable patient to perform ADL's. OT Education/Plan Problem List/Assessment Assessment: Decreased Activ Tolerance, Decreased UE Strength, Impaired I ADL's, Impaired Self-Care Skills Pt would benefit from skilled OT to increase her independence in basic self care to allow her to safely return to her home to live alone Discharge Recommendations Plan/Recommendations: Continue POC Treatment Plan/Plan of Care Patient would benefit from OT for education, treatment and training to promote independence in ADL's, mobility, safety and/or upper extremity function for ADL's. Plan of Care: ADL Retraining, Functional Mobility, UE Funct Exercise/Act, UE Neuromus Re-Ed/Coord Treatment Duration: Oct 12, 2019 Frequency: 5 times per week Estimated Hrs Per Day: .5 hour per day Agreement: Yes Rehab Potential: Fair Time/GCodes Start Time: 09:35 Stop Time: 09:47 Total Time Billed (hr/min): 12 Billed Treatment Time 1, ADL TOM HASSAN OT Sep 22, 2019 10:16
--- NOTE | 2019-09-22 10:30 | Physician Query Clarification ---
PQ-Further Specificity Admission/Discharge Admission Date: Sep 18, 2019 at 10:56 Discharge Date: The medical record reflects the following clinical scenario: Dr. Martinez, History/Risk Factors: Acute systolic congestive heart failure Type II TN Asthma Clinical Findings:T 36.6, P 88, Resp 14, Blood gases 09/17: pH 7.37, pC02 50, p02 88, HC03 28, Total C02 30.0, 02 Sat 98% base excess 3.2 Treatment: BiPAP, Vapotherm Dr. Veras, Dr. Parra and Dr. Locke give acute respiratory failure as a diagnosis in their documentation. Your H&P documents respiratory distress. Please clarify. Question: Can you further specify respiratory condition per the clinical indicators above? Please document a response in the Progress Notes or Discharge Summary. 1. Acute Respiratory Failure 2. Acute Respiratory distress 3. Other, with explanation of the clinical findings. 4. Clinically undetermined, no explanation for the clinical findings. PHYSICIAN RESPONSE Can you specify per above: 1 Please remember a lack of response to the above will prompt a phone page by CDI/Coding staff. In responding to this query, please exercise your independent professional judgment. The purpose of this communication is to more accurately reflect the complexity of your patients condition. The fact that a question is asked does not imply that any particular answer is desired or expected. Thank you for your timely response to this clarification. Requestors name: Xin Tejada [facility] Phone # ext [phone] or [phone] THIS PHYSICIAN QUERY FORM IS A PERMANENT PART OF THE MEDICAL RECORD XIN TEJADA Sep 22, 2019 10:30 KEILA MARTINEZ DO Sep 22, 2019 21:34
--- NOTE | 2019-09-22 10:32 | NUR ---
provided prayer and Communion.
--- NOTE | 2019-09-22 10:39 | Physical Therapy Progress Note ---
Therapy Progress Note Patient transferring to ICU on this date. Physician present and is aware of PT requiring new orders when medically stable. SHIRA MCKAY PT Sep 22, 2019 10:39
--- NOTE | 2019-09-22 11:14 | NUR ---
1050 PT TO ROOM ICU 3 VIA BED, REPORT RECEIVED FROM MACKENZIE RN. PT AWAKE, ALERT VOICES NO C/O OF PAIN. ASSESSMENT COMPLETE, HEART RATE NOTED TO BE SINUS TACHYCARDIA, HEART RATE IN THE 140'S. PT ON 02 AT 3 LITERS WITH SA02 NOTED AT 96%, DR ALONZO NOTIFIED OF HEART RATE NEW ORDERS RECEIVED. SEE ORDER HX.
[2019-09-22] MEDS: dilTIAZem DRIP PRE-MIX 125 ML IV SCH (11:26)
--- NOTE | 2019-09-22 12:02 | Progress Note - Hospitalist ---
CARMEN HANNAH MED STUDENT 09/22/19 1202: Subjective HPI/CC On Admission Date Seen by Provider: Sep 22, 2019 Time Seen by Provider: 09:00 Chief complaint: acute dyspnea History of present illness: This is an 84-year-old white female clinic patient of mine for nearly 17 years who has a past medical history of bypass surgery with noncompliance with follow-up with cardiology, diabetes mellitus on oral meds, hypertension and severe osteoarthritis who presents to the ER by ambulance after she called them because of worsening shortness of breath. She rarely gets out during this pandemic but she did go and eat at [facility] 2 weeks ago with her [id number]. She has been swab for COVID. Patient appears to have fluid overload with congestive heart failure requiring BiPAP in the ER now weaned down to nasal cannula and has responded well to diuresis. Patient has felt sick for 1 month felt like it would get better. Denies any fever or cough. Subjective/Events-last exam When seen this morning Ms. Babb reported feeling much improved. Compared to yesterday she was more awake and alert. Reports her breathing has improved and she has improved strength and energy. Expressed fear over needing cardiac catheterization. HR 98 this morning, shortly after seeing her she developed HR of 140s and was transferred to the ICU. Review of Systems General: No Chills; Fatigue (improved) HEENT: No Head Aches, No Sinus Congestion, No Sore Throat Pulmonary: No Dyspnea, No Cough Cardiovascular: Edema (stable); No: Chest Pain, Palpitations Gastrointestinal: No: Nausea, Vomiting, Abdominal Pain, Diarrhea, Constipation Genitourinary: No Dysuria, No Frequency, No Incontinence Neurological: No: Numbness, Confusion Objective Exam Vital Signs Vital Signs Date Time Temp Pulse Resp B/P (MAP) Pulse Ox O2 Delivery O2 Flow Rate FiO2 09/22/19 09:31 90 High Flow N/C 2.00 09/22/19 08:10 36.8 98 20 112/59 (76) 09/21/19 15:51 28 Capillary Refill : Less Than 3 Seconds General Appearance: No Apparent Distress, Chronically ill, Obese HEENT: PERRL/EOMI; No Pale Conjunctivae (L), No Pale Conjunctivae (R), No Scleral Icterus (L), No Scleral Icterus (R) Neck: Normal Inspection, Non Tender, Supple Respiratory: Lungs Clear, Normal Breath Sounds, No Accessory Muscle Use, No Respiratory Distress Cardiovascular: No Murmur, Normal Peripheral Pulses, Tachycardia Extremity: No Non Tender (R leg tenderness evaluating for edema and calf tenderness); Pedal Edema, Other (bilateral LE pruritis) Neurologic/Psychiatric: Alert, Oriented x3, Normal Mood/Affect Skin: Normal Color, Warm/Dry Results/Procedures Lab Laboratory Tests 09/22/19 05:12 Patient resulted labs reviewed. Assessment/Plan Assessment and Plan Assess & Plan/Chief Complaint Assessment: 1. tachycardia 2. acute CHF 3. new onset AF RVR 4. CAD w/ history of bypass 5. DM 6. HTN 7. Arthritis Plan: 1. continue cardizem 2. CBC, BMP pending 3. continue lasix 4. continue wean from vapotherm 5. DVT prophylaxis 6. home medications Clinical Quality Measures DVT/VTE Risk/Contraindication: Risk Factor Score Per Nursin RFS Level Per Nursing on Admit: 4+=Very High TELMA MARTINEZ DO 09/22/19 1227: Subjective Subjective/Events-last exam Pt was doing pretty well but when I evaluated her her heart rate was in the 140s of sinus tachycardia with left bundle branch block and Pt was very pale and significantly decompensated although her BP was 138/78 I decided to transfer to the ICU to stabilize Dr. Locke was updated She is contemplating undergoing cardiac catheterization She is very frustrated about having to go to the ICU again Pt will go to ICU 3 Prognosis becomes more complicated and guarded as more complications surface Review of Systems General: Fatigue (improved), Malaise Pulmonary: Dyspnea Cardiovascular: Edema (stable) Objective Exam General Appearance: Chronically ill, Moderate Distress, Obese, Other (pale and ashen) Respiratory: Lungs Clear, Normal Breath Sounds Cardiovascular: Tachycardia Assessment/Plan Assessment and Plan Assess & Plan/Chief Complaint Assessment: Severe Tachycardia with Trigeminy Acute decompensation requiring ICU transfer Plan: ICU transfer Cardiology evaluation Supervisory-Addendum Brief Verification & Attestation Participated in pt care: history, MDM, physical Personally performed: exam, history, MDM, supervision of care Care discussed with: Medical Student Procedures: n/a Results interpretation: Verified all documentation Verification and Attestation of Medical Student E/M Service A medical student performed and documented this service in my presence. I reviewed and verified all information documented by the medical student and made modifications to such information, when appropriate. I personally performed the physical exam and medical decision making. Telma Martinez, Sep 22, 2019,21:09 CARMEN HANNAH STUDENT Sep 22, 2019 12:02 TELMA MARTINEZ DO Sep 22, 2019 12:27
[2019-09-22] MEDS ORDERED: METOCLOPRAMIDE INJ 10 MG/2 ML (REGLAN) IVP SCH (14:45)
--- NOTE | 2019-09-22 14:46 | Occ Therapy Progress Note ---
Therapy Progress Note Pt transferred to ICU this date. OT will need new orders to continue therapy due to change in medical status. TOM HASSAN OT Sep 22, 2019 14:46
--- NOTE | 2019-09-22 14:46 | NUR ---
DR ALONZO NOTIFIED THAT PT'S HEART RATE CONTINUES TO BE IN THE 140'S. NEW ORDERS RECEIVED SEE ORDER HX.
[2019-09-22] MEDS ORDERED: meTOprolol 5 MG/5 ML (LOPRESSOR) VIAL ONE (15:10)
[2019-09-22] MEDS: meTOprolol 5 MG/5 ML (LOPRESSOR) VIAL IV SCH (15:14)
[2019-09-22] MEDS ORDERED: meTOprolol 5 MG/5 ML (LOPRESSOR) VIAL IV ONE (15:15)
--- NOTE | 2019-09-22 15:37 | Cardiology Progress Note ---
Cardiology SOAP Progress Note Subjective: Palpitations overnight, organized atrial fibrillation versus atrial flutter. Transfer to the ICU. Objective: I&O/Vital Signs 09/22/19 09/22/19 09/22/19 09/22/19 04:07 06:37 08:10 09:15 Temp 36.9 36.8 Pulse 95 94 98 Resp 21 20 B/P (MAP) 138/79 (98) 112/59 (76) Pulse Ox 97 95 95 O2 Delivery Nasal Cannula High Flow N/C High Flow N/C O2 Flow Rate 2.00 2.00 3.00 09/22/19 09/22/19 09/22/19 09/22/19 09:31 11:15 12:00 12:00 Temp 36.9 Pulse 146 151 Resp 12 17 B/P (MAP) 113/62 (79) 116/61 (79) Pulse Ox 90 91 O2 Delivery High Flow N/C Nasal Cannula Nasal Cannula O2 Flow Rate 2.00 3.00 3.00 09/22/19 09/22/19 09/22/19 12:48 15:12 15:15 Pulse 147 Pulse Ox 98 O2 Delivery High Flow N/C Nasal Cannula O2 Flow Rate 3.00 2.00 09/22/19 00:00 Intake Total 840 ml Output Total 575 ml Balance 265 ml Constitutional: apparent distress, PERRL, well-developed Respiratory: chest is bilaterally symmetric, other (decreased breath sounds bilaterally.) Cardiovascular: irregularly irregular, tachycardia, S1 and S2 Gastrointestional: soft, audible bowel sounds Extremities: normal range of motion, non-tender, normal inspection Neurologic/Psychiatric: no motor/sensory deficits, alert, normal mood/affect, oriented x 3 Skin: normal color, warm/dry Results/Procedures: Labs Laboratory Tests 09/22/19 05:12: White Blood Count 5.8, Red Blood Count 2.81L, Hemoglobin 8.1L, Hematocrit 26L, Mean Corpuscular Volume 93, Mean Corpuscular Hemoglobin 29, Mean Corpuscular Hemoglobin Concent 31L, Red Cell Distribution Width 13.6, Platelet Count 219, Mean Platelet Volume 10.1, Neutrophils (%) (Auto) 55, Lymphocytes (%) (Auto) 31, Monocytes (%) (Auto) 11, Eosinophils (%) (Auto) 3, Basophils (%) (Auto) 1, Neutrophils # (Auto) 3.2, Lymphocytes # (Auto) 1.8, Monocytes # (Auto) 0.6, Eosinophils # (Auto) 0.2, Basophils # (Auto) 0.0, Sodium Level 145, Potassium Level 3.9, Chloride Level 102, Carbon Dioxide Level 31, Anion Gap 12, Blood Urea Nitrogen 81H, Creatinine 1.47H, Estimat Glomerular Filtration Rate 34, BUN/Creatinine Ratio 55, Glucose Level 158H, Calcium Level 8.3L, Phosphorus Level 3.5, Magnesium Level 2.1 Microbiology 09/20/19 MRSA Screen - Final, Complete MRSA not isolated 09/18/19 Urine Culture - Final, Complete 3 or more isolates 09/18/19 Blood Culture - Preliminary, Resulted No growth A/P: Assessment/Dx: Acute respiratory failure Congestive heart failure Coronary artery disease Hypertension Plan: Status post acute respiratory failure was on Vapotherm, currently better, breathing better responded well to diuretics. Acute diastolic Congestive heart failure, acute probably left ventricular systolic dysfunction ischemic in nature, , started on diuretics. Restart home medication monitor. Echocardiogram shows normal LV function with LVH. Non-STEMI, Coronary artery disease history of CABG in 2010 using COLES to LAD, vein graft to the right coronary artery and vein graft to the circumflex artery, nor recent cardiac workup. Upward trend of troponin. Plaque rupture cannot be ruled out. I discussed at length with the patient but she refused coronary angiography. She understands that she could have recurrent IN or in the future. However she does not want coronary angiography. Paroxysmal atrial fibrillation with RVR, patient refused oral anticoagulation. She understands the risk of stroke. Continue aspirin and Plavix. Palpitations with tachycardia overnight. Transfer to the ICU. Started on Cardizem infusion. History of chest pain in the past, no recent episodes of chest pain Hypertension, resume home medication monitor blood pressure Hyperlipidemia, evaluate lipid profile and resume home medication Diabetes mellitus, followed and managed by primary care physician Thank you for your consultation. Please call me if you have any questions. Jessica Locke MD, FACP, FACC, FSCAI, FHRS, CCDS Interventional Cardiology Cardiac Electrophysiology Vascular Medicine and Endovascular Interventions Celine LOCKE MD Sep 22, 2019 15:37
[2019-09-23] VITALS (16 sets, daily range): BP systolic 102–136; BP diastolic 48–68
[2019-09-23] MEDS: meTOprolol 5 MG/5 ML (LOPRESSOR) VIAL IV SCH ×2 (00:36→06:10)
[2019-09-23] MEDS: RT-ALBUTEROL INHALER HFA (VENTOLIN HFA) 18 GM IH SCH ×2 (02:34→10:30)
[2019-09-23 02:51] LABS: BASOPHILS % (AUTO) 0 % (0-10); EOSINOPHILS # (AUTO) 0.2 10^3/uL (0.0-0.3); EOSINOPHILS % (AUTO) 3 % (0-10); HEMATOCRIT 26 % (35-52); HEMOGLOBIN 8.1 G/DL (11.5-16.0); LYMPHOCYTES # (AUTO) 1.7 X 10^3 (1.0-4.0); LYMPHOCYTES % (AUTO) 31 % (12-44); MEAN CORPUSCULAR HEMOGLOBIN 29 PG (25-34); MEAN CORPUSCULAR HGB CONC 31 G/DL (32-36); MEAN CORPUSCULAR VOLUME 93 FL (80-99); MEAN PLATELET VOLUME 10.1 FL (7.4-10.4); MONOCYTES # (AUTO) 0.6 X 10^3 (0.0-1.0); MONOCYTES % (AUTO) 10 % (0-12); NEUTROPHILS # (AUTO) 3.1 X 10^3 (1.8-7.8); NEUTROPHILS % (AUTO) 56 % (42-75); PLATELET COUNT 244 10^3/uL (130-400); RED CELL DISTRIBUTION WIDTH 13.8 % (10.0-14.5); WHITE BLOOD COUNT 5.6 10^3/uL (4.3-11.0)
[2019-09-23 03:02] LABS: POTASSIUM 3.8 MMOL/L (3.6-5.0)
[2019-09-23 03:03] LABS: CALCIUM 8.3 MG/DL (8.5-10.1)
[2019-09-23 03:07] LABS: CREATININE SERUM 1.47 MG/DL (0.60-1.30); PHOSPHORUS 4.1 MG/DL (2.3-4.7)
[2019-09-23 03:10] LABS: MAGNESIUM 2.3 MG/DL (1.6-2.4)
--- NOTE | 2019-09-23 05:41 | Pulmonary Progress Note ---
Subjective Time Seen by a Provider: 05:38 Subjective/Events-last exam Pt transferred back to ICU yesterday secondary to tachycardia. Sepsis Event Evaluation Height, Weight, BMI Height: '" Weight: lbs. oz. kg; 32.22 BMI Method: Exam Exam Vital Signs Date Time Temp Pulse Resp B/P (MAP) Pulse Ox O2 Delivery O2 Flow Rate FiO2 09/23/19 05:00 76 23 107/57 (74) 97 Nasal Cannula 3.00 09/23/19 04:21 76 26 95 Nasal Cannula 3.00 09/23/19 04:00 95 High Flow N/C 3.00 09/23/19 04:00 78 110/48 (68) 88 Nasal Cannula 2.00 09/23/19 03:49 100 09/23/19 03:46 36.7 09/23/19 03:00 98 110/68 (82) 97 Nasal Cannula 2.00 09/23/19 02:36 95 High Flow N/C 2.00 09/23/19 02:00 89 103/59 (74) 97 Nasal Cannula 2.00 09/23/19 01:00 92 09/23/19 01:00 92 113/59 (77) 96 Nasal Cannula 2.00 09/23/19 00:39 93 102/67 (79) 97 Nasal Cannula 2.00 09/23/19 00:00 36.6 09/23/19 00:00 95 High Flow N/C 3.00 09/22/19 23:00 112 95 Nasal Cannula 2.00 09/22/19 22:00 104 29 98 Nasal Cannula 2.00 09/22/19 21:27 114 109/64 (79) 95 Nasal Cannula 2.00 09/22/19 20:00 100 94/53 (67) 92 Nasal Cannula 2.00 09/22/19 20:00 36.8 09/22/19 20:00 95 High Flow N/C 3.00 09/22/19 19:00 101 09/22/19 19:00 101 25 111/55 (73) 99 Nasal Cannula 2.00 09/22/19 18:47 96 High Flow N/C 2.00 09/22/19 18:00 106 19 111/76 (88) 98 Nasal Cannula 2.00 09/22/19 17:00 120 16 95/74 (81) 96 Nasal Cannula 2.00 09/22/19 16:00 36.8 09/22/19 16:00 102 24 81/56 (64) 98 Nasal Cannula 2.00 09/22/19 15:15 Nasal Cannula 2.00 09/22/19 15:12 98 High Flow N/C 3.00 09/22/19 15:00 149 29 130/78 (95) 98 Nasal Cannula 3.00 09/22/19 14:00 144 21 110/67 (81) 98 Nasal Cannula 3.00 09/22/19 13:00 146 24 110/62 (78) 94 Nasal Cannula 3.00 09/22/19 12:48 147 09/22/19 12:00 36.9 09/22/19 12:00 151 17 116/61 (79) 91 Nasal Cannula 3.00 09/22/19 11:15 146 12 113/62 (79) Nasal Cannula 3.00 09/22/19 09:31 90 High Flow N/C 2.00 09/22/19 09:15 95 High Flow N/C 3.00 09/22/19 08:10 36.8 98 20 112/59 (76) 95 High Flow N/C 2.00 09/22/19 06:37 94 I & O 09/23/19 07:00 Intake Total 1095 ml Output Total 2400 ml Balance -1305 ml Height & Weight Height: '" Weight: lbs. oz. kg; 32.22 BMI Method: General Appearance: Chronically ill, Moderate Distress, Obese, Other (pale and ashen) HEENT: PERRL/EOMI; No Pale Conjunctivae (L), No Pale Conjunctivae (R), No Scleral Icterus (L), No Scleral Icterus (R) Neck: Normal Inspection, Non Tender, Supple Respiratory: Lungs Clear, Normal Breath Sounds Cardiovascular: Tachycardia Capillary Refill: Less Than 3 Seconds Gastrointestinal: non tender, soft, no organomegaly Extremity: No Non Tender (R leg tenderness evaluating for edema and calf t enderness); Pedal Edema, Other (bilateral LE pruritis) Neurologic/Psychiatric: Alert, Oriented x3, Normal Mood/Affect Skin: Normal Color, Warm/Dry Lymphatic: No Adenopathy Results Lab Laboratory Tests 09/22/19 05:12 09/23/19 02:13 Assessment/Plan Assessment/Plan Acute respiratory failure - improving -Oxygen -COVID is negative CHF - Continue Lasix Renal failure -monitor Afib -Cardizem gtt NSTEMI -Cardiology following -PT is refusing cath CAD LATONYA BLACKWELL DO Sep 23, 2019 05:41
[2019-09-23] MEDS: glyBURIDE 2.5 MG (MICRONASE) TAB PO SCH (06:10)
[2019-09-23] MEDS: ENOXAPARIN 80 MG/0.8 ML (LOVENOX) SYR SC SCH (06:10)
[2019-09-23] MEDS: SUCRALFATE 1 GM (CARAFATE) TAB PO SCH ×4 (06:12→21:27)
--- NOTE | 2019-09-23 07:55 | Diagnostic Imaging Report ---
INDICATION: Heart failure COMPARISON: 09/21/2019 FINDINGS: Vascular congestion and perihilar edema have decreased. Heart size similar. No substantial pleural fluid volume demonstrated. IMPRESSION: Reduction in vascular congestion and perihilar edema with no adverse change. Dictated by: Dictated on workstation # [id number]
--- NOTE | 2019-09-23 08:13 | Physical Therapy Progress Note ---
Therapy Progress Note Patient transferred to ICU, still awaiting new physical therapy orders. ISABEL TAMAYO PT Sep 23, 2019 08:13
[2019-09-23] MEDS: PANTOPRAZOLE 40 MG (PROTONIX) TAB PO SCH ×2 (09:01→21:27)
[2019-09-23] MEDS: dilTIAZem DRIP PRE-MIX 125 ML IV SCH (09:01)
[2019-09-23] MEDS: FUROSEMIDE 40 MG/4 ML INJ (LASIX) IVP SCH (09:01)
[2019-09-23] MEDS: LORATADINE (CLARITIN) 10 MG TAB PO SCH ×2 (09:01→21:27)
[2019-09-23] MEDS: SENNA W/DOCUSATE (SENOKOT S) TABLET PO SCH ×2 (09:01→21:27)
[2019-09-23] MEDS: ASPIRIN E.C. 81 MG (ECOTRIN) TAB PO SCH (09:01)
[2019-09-23] MEDS: OXYMETAZOLINE (AFRIN) 0.05% NA 30 ML BTL SCH ×2 (09:01→21:26)
--- NOTE | 2019-09-23 09:30 | Progress Note - Hospitalist ---
CARMEN HANNAH MED STUDENT 09/23/19 0930: Subjective HPI/CC On Admission Date Seen by Provider: Sep 23, 2019 Time Seen by Provider: 08:45 Chief complaint: acute dyspnea History of present illness: This is an 84-year-old white female clinic patient of [facility] for nearly 17 years who has a past medical history of bypass surgery with noncompliance with follow-up with cardiology, diabetes mellitus on oral meds, hypertension and severe osteoarthritis who presents to the ER by ambulance after she called them because of worsening shortness of breath. She rarely gets out during this pandemic but she did go and eat at [facility] 2 weeks ago with her [id number]. She has been swab for COVID. Patient appears to have fluid overload with congestive heart failure requiring BiPAP in the ER now weaned down to nasal cannula and has responded well to diuresis. Patient has felt sick for 1 month felt like it would get better. Denies any fever or cough. Subjective/Events-last exam Ms. Babb reports feeling light headed and tired today. The light headedness is worsened by standing. She reports feeling anxiety and at times shaking when she is anxious over the past several days that she does not attribute to her rapid heart rate. Denies any worsening of SOB, denies any CP, cough, fever. Review of Systems General: Chills (feels cold, no fever), Fatigue HEENT: Head Aches; No Sinus Congestion, No Sore Throat Pulmonary: No Dyspnea, No Cough Cardiovascular: Edema, Lt Headedness; No: Chest Pain, Palpitations Gastrointestinal: No: Nausea, Vomiting, Abdominal Pain, Diarrhea, Constipation Genitourinary: No Dysuria, No Frequency Neurological: No: Weakness, Numbness Objective Exam Vital Signs Vital Signs Date Time Temp Pulse Resp B/P (MAP) Pulse Ox O2 Delivery O2 Flow Rate FiO2 09/23/19 10:31 97 High Flow N/C 2.00 09/23/19 10:00 76 21 114/51 (72) 09/23/19 08:00 36.8 09/21/19 15:51 28 Capillary Refill : Less Than 3 Seconds General Appearance: Anxious, Chronically ill HEENT: PERRL/EOMI; No Pale Conjunctivae (L), No Pale Conjunctivae (R), No Scleral Icterus (L), No Scleral Icterus (R) Neck: Non Tender, Supple; No Lymphadenopathy (L), No Lymphadenopathy (R) Respiratory: No Respiratory Distress, Crackles (mid and lower lung posts bilaterally) Cardiovascular: Regular Rate, Rhythm, Normal Peripheral Pulses, Systolic Murmur Extremity: Normal Capillary Refill, Calf Tenderness (tenderness she attributes to itching), Other (pruritis to b/l legs) Neurologic/Psychiatric: Alert, Oriented x3, Other (eyes closed most of the exam, attributes to fatigue) Skin: Normal Color, Warm/Dry Results/Procedures Lab Laboratory Tests 09/23/19 02:13 Patient resulted labs reviewed. Assessment/Plan Assessment and Plan Assess & Plan/Chief Complaint Assessment: 1. hypotension 2. acute CHF 3. new onset AF RVR 4. CAD w/ history of bypass 5. DM 6. HTN 7. Arthritis Plan: 1. cardizem stopped, began metoprolol and 1/2 normal saline 2. continue lasix 3. continue oxygen 4. DVT prophylaxis 6. home medications 7. continue to monitor her kidney function Clinical Quality Measures DVT/VTE Risk/Contraindication: Risk Factor Score Per Nursin RFS Level Per Nursing on Admit: 4+=Very High TELMA MARTINEZ DO 09/23/19 1431: Subjective Subjective/Events-last exam In depth conversation with pt regarding cardiac catheterization of which she declined but I feel like with a little more counseling she could possibly approve and be open to that modality Transferring to 4th floor Rate controlled now at normal sinus rhythm Hypotension is slight, may require a bit of IV fluid In depth counseling initiated Review of Systems General: Fatigue, Malaise Pulmonary: Dyspnea Objective Exam General Appearance: No Apparent Distress, WD/WN, Chronically ill, Other (accutely ill and fatigued) Respiratory: Chest Non Tender, Lungs Clear, Normal Breath Sounds, No Accessory Muscle Use, No Respiratory Distress Cardiovascular: Regular Rate, Rhythm, No Edema, No Gallop, No JVD, No Murmur, Normal Peripheral Pulses Neurologic/Psychiatric: Alert, Oriented x3, No Motor/Sensory Deficits, Normal Mood/Affect Assessment/Plan Assessment and Plan Assess & Plan/Chief Complaint Plan: Move to 4th floor May need IV fluids for slight hypotension Supervisory-Addendum Brief Verification & Attestation Participated in pt care: history, MDM, physical Personally performed: exam, history, MDM, supervision of care Care discussed with: Medical Student Procedures: n/a Results interpretation: Verified all documentation Verification and Attestation of Medical Student E/M Service A medical student performed and documented this service in my presence. I reviewed and verified all information documented by the medical student and made modifications to such information, when appropriate. I personally performed the physical exam and medical decision making. Telma Martinez, Sep 23, 2019,21:03 CARMEN HANNAH MED STUDENT Sep 23, 2019 09:30 TELMA MARTINEZ DO Sep 23, 2019 14:31
--- NOTE | 2019-09-23 11:40 | NUR ---
Report received from Ivory DESKTOP OPERATOR. Pt transferred to room 401. Pt tolerated transfer well.
--- NOTE | 2019-09-23 11:46 | NUR ---
1045 DR CHERI GAO WITH TRANSFER TO THE 4TH FLOOR WITH TELEMETRY. NEW ORDERS RECEIVED. SEE ORDER HX. 1140 PT TRANSFERRED TO ROOM 401 VIA W/C ACCOMPANIED BY THIS RN AND PCT. PT TRANSFERRED ON 02 VIA NC AT 3 LITERS, ALL PERSONAL BELONGINGS SENT WITH PT, REPORT GIVEN TO KOMAL AT BEDSIDE.
[2019-09-23] MEDS: 1/2 NS IV SOLUTION 1,000 ML IV SCH ×2 (14:01→14:43)
--- NOTE | 2019-09-23 15:27 | Occupational Ther Daily Note ---
OT Current Status-Daily Note Subjective RN reports pt okay for therapy this pm. Pt sitting in chair, agrees to therapy. Pt states she is doing better today, and has no pain. Mental Status/Objective Attachments: Renae Catheter, IV, Oxygen ADL-Treatment Order received to resume therapy. Pt sitting in chair, states she recently returned from restroom, declined mobility at this time. Pt agrees to ADL activity while seated in chair. Pt brushed teeth and combed hair with set up. Pt doffed gown and washed upper body with SBA. Donned clean hospital gown with min assist secondary to IV. Pt declined further activity. Sitting in chair with needs met after session. Therapy Code Descriptions/Definitions Functional [place] Measure: 0=Not Assessed/NA 4=Minimal Assistance 1=Total Assistance 5=Supervision or Setup 2=Maximal Assistance 6=Modified [place] 3=Moderate Assistance 7=Complete IndependenceSCALE: Activities may be completed with or without assistive devices. 1-Pfocguqcis-ngtlysg completes the activity by him/herself with no assistance from a helper. 5-Set-up or Clean-up Assistance-helper sets up or cleans up; patient completes activity. [place] assists only prior to or following the activity. 4-Supervision or Touching Assistance-helper provides verbal cues and/or touching/steadying and/or contact guard assistance as patient completes activity. Assistance may be provided throughout the activity or intermittently. 3-Partial/Moderate Assistance-helper does LESS THAN HALF the effort. [place] lifts, holds or supports trunk or limbs, but provides less than half the effort. 2-Substantial/Maximal Assistance-helper does MORE THAN HALF the effort. [place] lifts or holds trunk or limbs and provides more than half the effort. 1-Hzsxcvlnq-mostky does ALL the effort. Patient does none of the effort to complete the activity. Or, the assistance of 2 or more helpers is required for the patient to complete the activity. If activity was not attempted, code reason: 7-Patient Refused. 9-Not Applicable-not attempted and the patient did not perform the activity before the current illness, exacerbation or injury. 10-Not Attempted due to Environmental Limitations-(lack of equipment, weather restraints, etc.). 88-Not Attempted due to Medical Conditions or Safety Concerns. Oral Hygiene (QC): 5 Education OT Patient Education: Rehab process Teaching Recipient: Patient Teaching Methods: Discussion Response to Teaching: Verbalize Understanding OT Short Term Goals Short Term Goals Time Frame: Sep 28, 2019 Oral hygiene: 5 Upper body dressin OT Senior Care Goals Sagger Maker Goals Time Frame: Oct 12, 2019 Eating (QC): 6 Oral Hygiene (QC): 6 Toileting Hygiene (QC): 6 Shower/Bathe Self (QC): 6 Upper Body Dressing (QC): 6 Lower Body Dressing (QC): 6 On/Off Footwear (QC): 6 Additional Goals: 1-Demonstrate ADL Tasks, 2-Verbalize Understanding, 3- ImproveStrength/Chip 1=Demonstrate adherence to instructed precautions during ADL tasks. 2=Patient will verbalize/demonstrate understanding of assistive devices/modifications for ADL. 3=Patient will improve strength/tolerance for activity to enable patient to perform ADL's. OT Education/Plan Problem List/Assessment Order received to resume therapy. Will continue treatment per previously established plan of care and goals. Discharge Recommendations Plan/Recommendations: Continue POC Treatment Plan/Plan of Care Patient would benefit from OT for education, treatment and training to promote independence in ADL's, mobility, safety and/or upper extremity function for ADL's. Plan of Care: ADL Retraining, Functional Mobility, UE Funct Exercise/Act, UE Neuromus Re-Ed/Coord Treatment Duration: Oct 12, 2019 Frequency: 5 times per week Estimated Hrs Per Day: .5 hour per day Agreement: Yes Rehab Potential: Fair Time/GCodes Start Time: 14:55 Stop Time: 15:15 Total Time Billed (hr/min): 20 Billed Treatment Time 1 visit, ADL(20minutes) JULIANE VIDES OT Sep 23, 2019 15:27
[2019-09-23] MEDS ORDERED: RT-ALBUTEROL SULF 2.5 MG/3 ML PRE-MIX VIAL INH PRN (15:45)
--- NOTE | 2019-09-23 16:05 | Physical Therapy Daily Note ---
PT Daily Note-Current Subjective Patient in recliner pre tx, agrees to PT but doesn't want to walk. She says she has a pain in her left foot in the middle of the bottom of it and it hurts to ambulate. She agrees to exercises while in the chair. Appearance Patient in recliner post tx with nurse call, phone, tray, all needs met, legs elevated. Mental Status Patient Orientation: Person, Place, Situation Attachments: Oxygen, IV Transfers SCALE: Activities may be completed with or without assistive devices. 6-Ohqknubtyd-vwymsdc completes the activity by him/herself with no assistance from a helper. 5-Set-up or Clean-up Assistance-helper sets up or cleans up; patient completes activity. [place] assists only prior to or following the activity. 4-Supervision or Touching Assistance-helper provides verbal cues and/or touching/steadying and/or contact guard assistance as patient completes activity. Assistance may be provided throughout the activity or intermittently. 3-Partial/Moderate Assistance-helper does LESS THAN HALF the effort. [place] lifts, holds or supports trunk or limbs, but provides less than half the effort. 2-Substantial/Maximal Assistance-helper does MORE THAN HALF the effort. [place] lifts or holds trunk or limbs and provides more than half the effort. 2-Fscdkuutn-vvhgsu does ALL the effort. Patient does none of the effort to complete the activity. Or, the assistance of 2 or more helpers is required for the patient to complete the activity. If activity was not attempted, code reason: 7-Patient Refused. 9-Not Applicable-not attempted and the patient did not perform the activity before the current illness, exacerbation or injury. 10-Not Attempted due to Environmental Limitations-(lack of equipment, weather restraints, etc.). 88-Not Attempted due to Medical Conditions or Safety Concerns. Exercises Supine Ex: Ankle pumps, Quad Set, Glut sets Supine Reps: 20 (performed in recliner with legs elevated) Seated Therapy Exercises: Long arc quads, Hip flexion, Hip abd/add Seated Reps: 20 Treatments LE exercise Assessment Current Status: Poor Progress Patient not able to ambulate due to pain in left foot. Patient just came back from ICU today. Patient reassessed and we will continue treatment with current therapy goals. PT Fpc Goals Fpc Goals PT Fpc Goals Time Frame: Oct 03, 2019 Roll Left & Right (QC): 6 Sit to Lying (QC): 6 Lying-Sitting on Side/Bed(QC): 6 Sit to Stand (QC): 6 Chair/Rap-ug-Dftda Xfer(QC): 6 Toilet Transfer (QC): 6 Does the Patient Walk: Yes Walk 10 feet (QC): 6 Walk 50ft with 2 Turns (QC): 6 PT Plan Problem List Problem List: Activity Tolerance, Functional Strength, Safety, Balance, Gait, Transfer, Bed Mobility, ROM Treatment/Plan Treatment Plan: Continue Plan of Care Treatment Plan: Bed Mobility, Education, Functional Activity Chip, Functional Strength, Gait, Safety, Therapeutic Exercise, Transfers Treatment Duration: Oct 03, 2019 Frequency: 6 times per week Estimated Hrs Per Day: .25 hour per day Patient and/or Family Agrees t: Yes Safety Risks/Education Patient Education: Correct Positioning, Safety Issues Teaching Recipient: Patient Teaching Methods: Demonstration, Discussion Response to Teaching: Reinforcement Needed Time/GCodes Time In: 1550 Time Out: 1600 Total Billed Treatment Time: 10 Total Billed Treatment 1 visit EX ISABEL ROCHE PT Sep 23, 2019 16:05
--- NOTE | 2019-09-23 18:16 | Cardiology Progress Note ---
Cardiology SOAP Progress Note Subjective: No cardiac complaints. Objective: I&O/Vital Signs 09/23/19 09/23/19 09/23/19 09/23/19 06:38 07:00 08:00 08:00 Temp 36.8 Pulse 67 78 72 Resp 27 14 B/P (MAP) 121/60 (80) 119/58 (78) Pulse Ox 94 99 O2 Delivery Nasal Cannula Nasal Cannula O2 Flow Rate 3.00 3.00 09/23/19 09/23/19 09/23/19 09/23/19 08:22 09:00 10:00 10:31 Pulse 73 76 Resp 11 21 B/P (MAP) 115/48 (70) 114/51 (72) Pulse Ox 97 100 95 97 O2 Delivery High Flow N/C Nasal Cannula Nasal Cannula High Flow N/C O2 Flow Rate 3.00 3.00 3.00 2.00 09/23/19 09/23/19 09/23/19 09/23/19 12:00 12:41 15:34 16:33 Temp 36.6 36.6 36.8 Pulse 79 82 82 74 Resp 20 22 B/P (MAP) 105/58 (74) 118/64 (82) Pulse Ox 100 100 99 O2 Delivery High Flow N/C High Flow N/C O2 Flow Rate 3.00 3.00 09/23/19 00:00 Intake Total 1045 ml Output Total 2275 ml Balance -1230 ml Constitutional: apparent distress, PERRL, well-developed Respiratory: chest is bilaterally symmetric, other (decreased breath sounds bilaterally.) Cardiovascular: regular rate-rhythm, S1 and S2 Gastrointestional: soft, audible bowel sounds Extremities: normal range of motion, non-tender, normal inspection Neurologic/Psychiatric: no motor/sensory deficits, alert, normal mood/affect, oriented x 3 Skin: normal color, warm/dry Results/Procedures: Labs Laboratory Tests 09/23/19 02:13: White Blood Count 5.6, Red Blood Count 2.83L, Hemoglobin 8.1L, Hematocrit 26L, Mean Corpuscular Volume 93, Mean Corpuscular Hemoglobin 29, Mean Corpuscular Hemoglobin Concent 31L, Red Cell Distribution Width 13.8, Platelet Count 244, Mean Platelet Volume 10.1, Neutrophils (%) (Auto) 56, Lymphocytes (%) (Auto) 31, Monocytes (%) (Auto) 10, Eosinophils (%) (Auto) 3, Basophils (%) (Auto) 0, Neutrophils # (Auto) 3.1, Lymphocytes # (Auto) 1.7, Monocytes # (Auto) 0.6, Eosinophils # (Auto) 0.2, Basophils # (Auto) 0.0, Sodium Level 144, Potassium Level 3.8, Chloride Level 100, Carbon Dioxide Level 32, Anion Gap 12, Blood Urea Nitrogen 62H, Creatinine 1.47H, Estimat Glomerular Filtration Rate 34, BUN/Creatinine Ratio 42, Glucose Level 170H, Calcium Level 8.3L, Phosphorus Level 4.1, Magnesium Level 2.3 09/23/19 10:08: Glucometer 223H Microbiology 09/20/19 MRSA Screen - Final, Complete MRSA not isolated 09/18/19 Urine Culture - Final, Complete 3 or more isolates 09/18/19 Blood Culture - Final, Complete No growth A/P: Assessment/Dx: Acute respiratory failure Congestive heart failure Coronary artery disease Hypertension Paroxysmal atrial fibrillation with RVR Plan: Status post acute respiratory failure was on Vapotherm, currently better, breathing better responded well to diuretics. Acute diastolic Congestive heart failure, acute probably left ventricular systolic dysfunction ischemic in nature, , started on diuretics. Restart home medication monitor. Echocardiogram shows normal LV function with LVH. Non-STEMI, Coronary artery disease history of CABG in 2010 using COLES to LAD, vein graft to the right coronary artery and vein graft to the circumflex artery, nor recent cardiac workup. Upward trend of troponin. Plaque rupture cannot be ruled out. I discussed at length with the patient but she refused coronary angiography. She understands that she could have recurrent MD or in the future. However she does not want coronary angiography. Paroxysmal atrial fibrillation with RVR, patient refused oral anticoagulation. She understands the risk of stroke. Continue aspirin and Plavix. Patient converted to sinus rhythm. Continue beta blockers. Can be transferred to the floor. History of chest pain in the past, no recent episodes of chest pain Hypertension, resume home medication monitor blood pressure Hyperlipidemia, evaluate lipid profile and resume home medication Diabetes mellitus, followed and managed by primary care physician Thank you for your consultation. Please call me if you have any questions. Jessica Locke MD, FACP, FACC, FSCAI, FHRS, CCDS Interventional Cardiology Cardiac Electrophysiology Vascular Medicine and Endovascular Interventions Celine LOCKE MD Sep 23, 2019 18:16
[2019-09-24 04:00] VITALS: BP 113/55
[2019-09-24 05:24] LABS: BASOPHILS % (AUTO) 0 % (0-10); EOSINOPHILS # (AUTO) 0.2 10^3/uL (0.0-0.3); EOSINOPHILS % (AUTO) 3 % (0-10); HEMATOCRIT 25 % (35-52); HEMOGLOBIN 7.6 G/DL (11.5-16.0); LYMPHOCYTES # (AUTO) 1.7 X 10^3 (1.0-4.0); LYMPHOCYTES % (AUTO) 29 % (12-44); MEAN CORPUSCULAR HEMOGLOBIN 29 PG (25-34); MEAN CORPUSCULAR HGB CONC 31 G/DL (32-36); MEAN CORPUSCULAR VOLUME 93 FL (80-99); MONOCYTES # (AUTO) 0.6 X 10^3 (0.0-1.0); MONOCYTES % (AUTO) 10 % (0-12); NEUTROPHILS # (AUTO) 3.4 X 10^3 (1.8-7.8); NEUTROPHILS % (AUTO) 58 % (42-75); PLATELET COUNT 219 10^3/uL (130-400); RED CELL DISTRIBUTION WIDTH 13.4 % (10.0-14.5); WHITE BLOOD COUNT 5.9 10^3/uL (4.3-11.0)
[2019-09-24 05:40] LABS: CALCIUM 8.2 MG/DL (8.5-10.1); CREATININE SERUM 1.16 MG/DL (0.60-1.30); MAGNESIUM 2.5 MG/DL (1.6-2.4); PHOSPHORUS 3.3 MG/DL (2.3-4.7); POTASSIUM 3.8 MMOL/L (3.6-5.0)
[2019-09-24] MEDS: ENOXAPARIN 80 MG/0.8 ML (LOVENOX) SYR SC SCH (06:25)
[2019-09-24] MEDS: glyBURIDE 2.5 MG (MICRONASE) TAB PO SCH (06:25)
[2019-09-24] MEDS: SUCRALFATE 1 GM (CARAFATE) TAB PO SCH ×4 (06:25→21:46)
[2019-09-24 07:22] VITALS: BP 146/68
--- NOTE | 2019-09-24 08:16 | NUR ---
SCR IMPROVED TO 1.16 DOWN FORM 1.4 CHANGED ENOXAPARIN BACK TO Q12H, BASED ON ORIGINAL ORDER.
[2019-09-24] MEDS ORDERED: meTOprolol SUCCINATE 100 MG (TOPROL XL) TAB PO SCH (09:00)
--- NOTE | 2019-09-24 09:08 | Progress Note - Hospitalist ---
CARMEN HANNAH MED STUDENT 09/24/19 0908: Subjective HPI/CC On Admission Date Seen by Provider: Sep 24, 2019 Time Seen by Provider: 08:30 Chief complaint: acute dyspnea History of present illness: This is an 84-year-old white female clinic patient of mine for nearly 17 years who has a past medical history of bypass surgery with noncompliance with follow-up with cardiology, diabetes mellitus on oral meds, hypertension and severe osteoarthritis who presents to the ER by ambulance after she called them because of worsening shortness of breath. She rarely gets out during this pandemic but she did go and eat at [facility] 2 weeks ago with her [id number]. She has been swab for COVID. Patient appears to have fluid overload with congestive heart failure requiring BiPAP in the ER now weaned down to nasal cannula and has responded well to diuresis. Patient has felt sick for 1 month felt like it would get better. Denies any fever or cough. Subjective/Events-last exam Ms. Babb reports feeling improved today, but remains very fatigued and cold with chills. She also reports nasal congestion, which is new today, and continued itching as well as pain in bilateral legs on palpation, which has improved with dimethican cream. Also reports she has left foot pain which has impaired her a mbulation, uncertain what caused it. Also reports having dark stools, two in the past day, although she is uncertain whether they have really been in the past day or if they occurred when she was last on med/surg floor two days ago. Reports feeling less anxious today. Denies any fever, cough, abdominal pain. Review of Systems General: Chills (no fever), Fatigue, Malaise HEENT: Sinus Congestion; No Sore Throat Pulmonary: Dyspnea (uncertain); No Cough Cardiovascular: Edema (improved); No: Chest Pain, Palpitations Gastrointestinal: Melena (reports two in past day, but unsure if in past day or prior day in med/surg earlier this week), Other (bloody stools); No: Nausea, V omiting, Abdominal Pain, Diarrhea, Constipation Genitourinary: No Dysuria, No Frequency, No Incontinence, No Hematuria Objective Exam Vital Signs Vital Signs Date Time Temp Pulse Resp B/P (MAP) Pulse Ox O2 Delivery O2 Flow Rate FiO2 09/24/19 12:43 37.1 72 20 119/57 (77) 97 Nasal Cannula 3.00 09/21/19 15:51 28 Capillary Refill : Less Than 3 Seconds General Appearance: Anxious, Chronically ill HEENT: PERRL/EOMI; No Pale Conjunctivae (L), No Pale Conjunctivae (R), No Scleral Icterus (L), No Scleral Icterus (R) Neck: Non Tender; No Lymphadenopathy (L), No Lymphadenopathy (R) Respiratory: No Accessory Muscle Use, No Respiratory Distress, Crackles (lower lobes bilaterally) Cardiovascular: Regular Rate, Rhythm, Normal Peripheral Pulses, Systolic Murmur Gastrointestinal: Normal Bowel Sounds, No Organomegaly, Non Tender, Soft, Guarding (epigastric, denies pain) Extremity: Normal Capillary Refill, Calf Tenderness (tenderness to palpation of calf and when palpating for edema), Pedal Edema (1+, improved) Neurologic/Psychiatric: Alert, Oriented x3, Disoriented (uncertain about if she had melena in the past day or not) Skin: Normal Color, Warm/Dry, Ecchymosis (LLQ and hypogastric bruising) Results/Procedures Lab Laboratory Tests 09/24/19 05:08 Patient resulted labs reviewed. Assessment/Plan Assessment and Plan Assess & Plan/Chief Complaint Assessment: 1. hypotension 2. acute CHF 3. new onset AF RVR 4. CAD w/ history of bypass 5. DM 6. HTN 7. Arthritis Plan: 1. plan for transfer to inpatient rehab 2. continue lasix 3. continue oxygen 4. DVT prophylaxis 5. home medications 6. continue to monitor her kidney function Clinical Quality Measures DVT/VTE Risk/Contraindication: Risk Factor Score Per Nursin RFS Level Per Nursing on Admit: 4+=Very High TELMA MARTINEZ DO 09/24/19 1228: Subjective Subjective/Events-last exam Dramatic improvement today Bloody stools, Hgb 7.6 precluding the use of Lovenox and Aspirin for now Reluctant to have any type of procedure, let alone an endoscopy for bloody stools but will monitor that closely Will keep catheter in because of diuresis process Creatinine 1.16 Will start on IV iron infusions, check iron level on the lab already done Much improved but has a lot of recovery Review of Systems General: Fatigue, Malaise Gastrointestinal: Other (bloody stools) Objective Exam General Appearance: No Apparent Distress, WD/WN, Chronically ill, Obese Respiratory: Chest Non Tender, Lungs Clear, Normal Breath Sounds, No Accessory Muscle Use, No Respiratory Distress Cardiovascular: Regular Rate, Rhythm, No Edema, No Gallop, No JVD, No Murmur, Normal Peripheral Pulses Neurologic/Psychiatric: Alert, Oriented x3, No Motor/Sensory Deficits, Normal Mood/Affect Assessment/Plan Assessment and Plan Assess & Plan/Chief Complaint Inpatient rehab tomorrow 09/25/19 Keep catheter today for diuresis Check iron level and start IV iron infusions Monitor bloody stools hold Lovenox and asprin Patient reluctant for any type of procedure including cardiac cath and endoscopy Supervisory-Addendum Brief Verification & Attestation Participated in pt care: history, MDM, physical Personally performed: exam, history, MDM, supervision of care Care discussed with: Medical Student Procedures: n/a Results interpretation: Verified all documentation Verification and Attestation of Medical Student E/M Service A medical student performed and documented this service in my presence. I review ed and verified all information documented by the medical student and made modifications to such information, when appropriate. I personally performed the physical exam and medical decision making. Telma Martinez, Sep 24, 2019,20:36 CARMEN HANNAH MED STUDENT Sep 24, 2019 09:08 TELMA MARTINEZ DO Sep 24, 2019 12:28
[2019-09-24] MEDS: ASPIRIN E.C. 81 MG (ECOTRIN) TAB PO SCH (09:33)
[2019-09-24] MEDS: LORATADINE (CLARITIN) 10 MG TAB PO SCH ×2 (09:33→21:46)
[2019-09-24] MEDS: SENNA W/DOCUSATE (SENOKOT S) TABLET PO SCH ×2 (09:33→21:47)
[2019-09-24] MEDS: PANTOPRAZOLE 40 MG (PROTONIX) TAB PO SCH ×2 (09:33→21:46)
[2019-09-24] MEDS: OXYMETAZOLINE (AFRIN) 0.05% NA 30 ML BTL SCH ×2 (09:34→21:51)
[2019-09-24] MEDS: FUROSEMIDE 40 MG/4 ML INJ (LASIX) IVP SCH (09:34)
[2019-09-24] MEDS: meTOprolol SUCCINATE 100 MG (TOPROL XL) TAB PO SCH (09:35)
[2019-09-24] MEDS ORDERED: IRON SUCROSE 200 MG/10 ML (VENOFER) VIAL IV SCH (11:00)
--- NOTE | 2019-09-24 11:37 | NUR ---
provided prayer and Communion.
--- NOTE | 2019-09-24 11:56 | Physical Therapy Daily Note ---
PT Daily Note-Current Subjective Patient agrees to PT. She continues to c/o fatigue. Mental Status Patient Orientation: Normal For Age Attachments: Oxygen, Renae Catheter Transfers SCALE: Activities may be completed with or without assistive devices. 9-Kpkyxcgnbc-hiffzce completes the activity by him/herself with no assistance from a helper. 5-Set-up or Clean-up Assistance-helper sets up or cleans up; patient completes activity. [employer] assists only prior to or following the activity. 4-Supervision or Touching Assistance-helper provides verbal cues and/or touching/steadying and/or contact guard assistance as patient completes activ ity. Assistance may be provided throughout the activity or intermittently. 3-Partial/Moderate Assistance-helper does LESS THAN HALF the effort. [employer] lifts, holds or supports trunk or limbs, but provides less than half the effort. 2-Substantial/Maximal Assistance-helper does MORE THAN HALF the effort. [employer] lifts or holds trunk or limbs and provides more than half the effort. 0-Vgfwdaqjw-ezibea does ALL the effort. Patient does none of the effort to complete the activity. Or, the assistance of 2 or more helpers is required for the patient to complete the activity. If activity was not attempted, code reason: 7-Patient Refused. 9-Not Applicable-not attempted and the patient did not perform the activity before the current illness, exacerbation or injury. 10-Not Attempted due to Environmental Limitations-(lack of equipment, weather restraints, etc.). 88-Not Attempted due to Medical Conditions or Safety Concerns. Roll Left & Right (QC): 4 Lying to Sitting/Side of Bed(Q: 4 Sit to Stand (QC): 4 Chair/Fuz-fl-Jscvd Xfer(QC): 4 Gait Training Does the Patient Walk?: Yes Distance: 30' x 4 Walk 10 feet (QC): 4 Gait Assistive Device: FWW slow, steady gait sequence Exercises Supine Ex: Ankle pumps, Quad Set, Heel Slides, Straight leg raise, Hip abd/add Supine Reps: 12 (2 sets) Seated Therapy Exercises: Ankle pumps, Long arc quads Seated Reps: 15 Assessment Patient tolerated treatment and is very fatigued with minimal activity. PT to increase activity as tolerated by patient. Plan transfer to ARU soon. PT Grader Tender Goals Grader Tender Goals PT Alf Goals Time Frame: Oct 03, 2019 Roll Left & Right (QC): 6 Sit to Lying (QC): 6 Lying-Sitting on Side/Bed(QC): 6 Sit to Stand (QC): 6 Chair/Jwk-yr-Rmnwo Xfer(QC): 6 Toilet Transfer (QC): 6 Does the Patient Walk: Yes Walk 10 feet (QC): 6 Walk 50ft with 2 Turns (QC): 6 PT Plan Treatment/Plan Treatment Plan: Continue Plan of Care Treatment Plan: Bed Mobility, Education, Functional Activity Chip, Functional Strength, Gait, Safety, Therapeutic Exercise, Transfers Treatment Duration: Oct 03, 2019 Frequency: 6 times per week Estimated Hrs Per Day: .25 hour per day Patient and/or Family Agrees t: Yes Time/GCodes Time In: 1030 Time Out: 1055 Total Billed Treatment Time: 25 Total Billed Treatment 1 visit EX 15 min GT 10 min SHIRA MCKAY PT Sep 24, 2019 11:55
[2019-09-24 12:43] VITALS: BP 119/57
--- NOTE | 2019-09-24 12:55 | NUR ---
RD ASSESSMENT PMHx: DM; HTN; CHF; CAD; CA(ovarian) PT INTERACTION: Pt was awake and pleasant during nutrition assessment. Pt states current appetite is not bad. Note avg PO intake 68% x4d, per chart review. Pt states following a regular diet at home, and has some issues with chewing food. Pt states some recent issues with nausea, vomiting, and constipation. Note last BM was 09/22, and pt currently on bowel regimen of senna BID, per chart review. Pt states no recent wt changes. Note recent 13# wt gain x6d, per chart review. Pt states unsure of current level of DM management. "Nobody has said anything if it is high." Note unable to determine recent HbA1c, per chart review. ABNORMAL NUTRITION-RELATED LAB VALUES LOW: Ca 8.2 HIGH: BUN 44; glu 137; Mg 2.5 Est. kcal needs: 1325 kcal | 15 kcal/kg Est. Pro needs: 71 g Pro | 0.8 g Pro/kg PES STATEMENT: Inadequate oral intake (NI-2.1) related to loss of appetite | nausea | vomiting | constipation as evidenced by pt interview | avg PO intake 68% x4d INTERVENTION: Continue with current diet order of DYS3 Advanced/Ground Meat diet, with modifier of 2000mg Na restriction. Pt may benefit from consistent CHO restriction if blood glucose levels become elevated. Offered diet education on DM management, but pt declined. Pt states she feels like it's okay because nobody has told her otherwise. Will attempt to offer again prior to discharge. Will continue to follow and reassess as pt needs, intake, and status change. MONITOR/EVALUATE: PO Intake; Plan of Care; Hydration Status; Weight Status; Lab Values Denise Disla, MS, RD, LD
--- NOTE | 2019-09-24 13:39 | Occupational Ther Daily Note ---
OT Current Status-Daily Note Subjective Pt alert, sitting in recliner. Pt agrees to therapy. No c/o pain. C/o fatigue. Mental Status/Objective Patient Orientation: Person, Place, Time, Situation Attachments: IV ADL-Treatment Therapy Code Descriptions/Definitions Functional [place] Measure: 0=Not Assessed/NA 4=Minimal Assistance 1=Total Assistance 5=Supervision or Setup 2=Maximal Assistance 6=Modified [place] 3=Moderate Assistance 7=Complete IndependenceSCALE: Activities may be completed with or without assistive devices. 9-Uiluysqzci-aobgjsy completes the activity by him/herself with no assistance from a helper. 5-Set-up or Clean-up Assistance-helper sets up or cleans up; patient completes activity. [employer] assists only prior to or following the activity. 4-Supervision or Touching Assistance-helper provides verbal cues and/or touching/steadying and/or contact guard assistance as patient completes activity. Assistance may be provided throughout the activity or intermittently. 3-Partial/Moderate Assistance-helper does LESS THAN HALF the effort. [employer] lifts, holds or supports trunk or limbs, but provides less than half the effort. 2-Substantial/Maximal Assistance-helper does MORE THAN HALF the effort. [employer] lifts or holds trunk or limbs and provides more than half the effort. 2-Sselvomkv-ithdma does ALL the effort. Patient does none of the effort to complete the activity. Or, the assistance of 2 or more helpers is required for the patient to complete the activity. If activity was not attempted, code reason: 7-Patient Refused. 9-Not Applicable-not attempted and the patient did not perform the activity before the current illness, exacerbation or injury. 10-Not Attempted due to Environmental Limitations-(lack of equipment, weather restraints, etc.). 88-Not Attempted due to Medical Conditions or Safety Concerns. Pt stated that she has difficulty with donning/doffing footwear. Educated pt on using AE for lower body dressing. Other Treatment Pt stated that she had already cleaned up earlier in the day while going to the restroom then completed oral care with PT. Pt completed B UE exercises against gravity to increased strength and activity tolerance. Skilled instruction for technique and modifications. Pt able to complete 1st set 10 reps then due to increased fatigue 2nd set 5 reps. Pt required multiple recovery breaks throughout session. Educated pt on role of OT, pt verbalized understanding. After session, pt sitting in recliner with call light/phone in reach. All needs met in room. OT Short Term Goals Short Term Goals Time Frame: Sep 28, 2019 Oral hygiene: 5 Upper body dressin OT Fpc Goals Fpc Goals Time Frame: Oct 12, 2019 Eating (QC): 6 Oral Hygiene (QC): 6 Toileting Hygiene (QC): 6 Shower/Bathe Self (QC): 6 Upper Body Dressing (QC): 6 Lower Body Dressing (QC): 6 On/Off Footwear (QC): 6 Additional Goals: 1-Demonstrate ADL Tasks, 2-Verbalize Understanding, 3- ImproveStrength/Chip 1=Demonstrate adherence to instructed precautions during ADL tasks. 2=Patient will verbalize/demonstrate understanding of assistive devices/modifications for ADL. 3=Patient will improve strength/tolerance for activity to enable patient to perform ADL's. OT Education/Plan Problem List/Assessment Assessment: Decreased Activ Tolerance, Decreased UE Strength, Impaired Self- Care Skills Order received to resume therapy. Will continue treatment per previously established plan of care and goals. Discharge Recommendations Plan/Recommendations: Continue POC Treatment Plan/Plan of Care Patient would benefit from OT for education, treatment and training to promote independence in ADL's, mobility, safety and/or upper extremity function for ADL's. Plan of Care: ADL Retraining, Functional Mobility, UE Funct Exercise/Act, UE Neuromus Re-Ed/Coord Treatment Duration: Oct 12, 2019 Frequency: 5 times per week Estimated Hrs Per Day: .5 hour per day Agreement: Yes Rehab Potential: Fair Time/GCodes Start Time: 13:05 Stop Time: 13:25 Total Time Billed (hr/min): 20 Billed Treatment Time 1 visit-EX 1 (20 min) DANAE CROW Sep 24, 2019 13:39
--- NOTE | 2019-09-24 14:07 | Cardiology Progress Note ---
Cardiology SOAP Progress Note Subjective: No cardiac complaints. Objective: I&O/Vital Signs 09/24/19 09/24/19 09/24/19 09/24/19 04:00 07:00 07:22 08:00 Temp 36.8 37.0 Pulse 64 79 78 Resp 20 20 B/P (MAP) 113/55 (74) 146/68 (94) Pulse Ox 97 98 O2 Delivery Nasal Cannula Nasal Cannula High Flow N/C O2 Flow Rate 3.00 3.00 3.00 09/24/19 09/24/19 12:27 12:43 Temp 37.1 Pulse 72 72 Resp 20 B/P (MAP) 119/57 (77) Pulse Ox 97 O2 Delivery Nasal Cannula O2 Flow Rate 3.00 09/24/19 00:00 Intake Total 840 ml Output Total 825 ml Balance 15 ml Constitutional: PERRL, well-developed Respiratory: chest is bilaterally symmetric, lungs clear to auscultation Cardiovascular: regular rate-rhythm, S1 and S2 Gastrointestional: soft, audible bowel sounds Extremities: normal range of motion, non-tender, normal inspection Neurologic/Psychiatric: no motor/sensory deficits, alert, normal mood/affect, oriented x 3 Skin: normal color, warm/dry Results/Procedures: Labs Laboratory Tests 09/24/19 05:08: White Blood Count 5.9, Red Blood Count 2.64L, Hemoglobin 7.6L, Hematocrit 25L, Mean Corpuscular Volume 93, Mean Corpuscular Hemoglobin 29, Mean Corpuscular Hemoglobin Concent 31L, Red Cell Distribution Width 13.4, Platelet Count 219, Mean Platelet Volume 10.0, Neutrophils (%) (Auto) 58, Lymphocytes (%) (Auto) 29, Monocytes (%) (Auto) 10, Eosinophils (%) (Auto) 3, Basophils (%) (Auto) 0, Neutrophils # (Auto) 3.4, Lymphocytes # (Auto) 1.7, Monocytes # (Auto) 0.6, Eosinophils # (Auto) 0.2, Basophils # (Auto) 0.0, Sodium Level 144, Potassium Level 3.8, Chloride Level 102, Carbon Dioxide Level 33H, Anion Gap 9, Blood Urea Nitrogen 44H, Creatinine 1.16, Estimat Glomerular Filtration Rate 45, BUN/Creatinine Ratio 38, Glucose Level 137H, Calcium Level 8.2L, Phosphorus Level 3.3, Magnesium Level 2.5H Microbiology 09/20/19 MRSA Screen - Final, Complete MRSA not isolated 09/18/19 Urine Culture - Final, Complete 3 or more isolates 09/18/19 Blood Culture - Final, Complete No growth A/P: Assessment/Dx: Acute respiratory failure Congestive heart failure Coronary artery disease Hypertension Paroxysmal atrial fibrillation with RVR Plan: Status post acute respiratory failure was on Vapotherm, currently better, breathing better responded well to diuretics. Acute diastolic Congestive heart failure, acute probably left ventricular systolic dysfunction ischemic in nature, , started on diuretics. Restart home medication monitor. Echocardiogram shows normal LV function with LVH. Non-STEMI, Coronary artery disease history of CABG in 2010 using COLES to LAD, v ein graft to the right coronary artery and vein graft to the circumflex artery, nor recent cardiac workup. Upward trend of troponin. Plaque rupture cannot be ruled out. I discussed at length with the patient but she refused coronary angiography. She understands that she could have recurrent PA or in the future. However she does not want coronary angiography. Paroxysmal atrial fibrillation with RVR, patient refused oral anticoagulation. She understands the risk of stroke. Continue aspirin and Plavix. Patient converted to sinus rhythm. Continue beta blockers. On fourth floor now. Stable rhythm. History of chest pain in the past, no recent episodes of chest pain Hypertension, resume home medication monitor blood pressure Hyperlipidemia, evaluate lipid profile and resume home medication Diabetes mellitus, followed and managed by primary care physician Thank you for your consultation. Please call me if you have any questions. Jessica Locke MD, FACP, FACC, FSCAI, FHRS, CCDS Interventional Cardiology Cardiac Electrophysiology Vascular Medicine and Endovascular Interventions Celine LOCKE MD Sep 24, 2019 14:06
--- NOTE | 2019-09-24 14:50 | NUR ---
KATH/SS follow up. KATH/SS spoke with Gabby in Inpatient rehab that reports they have accepted patient and plan to take her tomorrow 09/24.
--- NOTE | 2019-09-24 15:42 | NUR ---
[facility] Met with patient to discuss details of rehabilitation program. Patient agreeable to therapy regimen and admission. Anticipate admission, 09/25/19.
[2019-09-24 16:00] VITALS: BP 127/72
[2019-09-24] MEDS ORDERED: ENOXAPARIN 80 MG/0.8 ML (LOVENOX) SYR SC SCH (18:00)
[2019-09-24] MEDS ORDERED: CALCIUM CARBONATE 500 MG (TUMS) TAB.CHEW PO PRN (18:45)
[2019-09-24 19:15] VITALS: BP 121/63
[2019-09-25] VITALS: BP 113/55
[2019-09-25 04:47] VITALS: BP 129/66
[2019-09-25] MEDS: SUCRALFATE 1 GM (CARAFATE) TAB PO SCH (06:55)
[2019-09-25] MEDS: glyBURIDE 2.5 MG (MICRONASE) TAB PO SCH (06:55)
[2019-09-25 06:56] LABS: BASOPHILS % (AUTO) 0 % (0-10); EOSINOPHILS # (AUTO) 0.3 10^3/uL (0.0-0.3); EOSINOPHILS % (AUTO) 4 % (0-10); HEMATOCRIT 28 % (35-52); HEMOGLOBIN 8.9 G/DL (11.5-16.0); LYMPHOCYTES # (AUTO) 1.8 X 10^3 (1.0-4.0); LYMPHOCYTES % (AUTO) 25 % (12-44); MEAN CORPUSCULAR HEMOGLOBIN 29 PG (25-34); MEAN CORPUSCULAR HGB CONC 32 G/DL (32-36); MEAN CORPUSCULAR VOLUME 92 FL (80-99); MEAN PLATELET VOLUME 9.3 FL (7.4-10.4); MONOCYTES # (AUTO) 0.8 X 10^3 (0.0-1.0); MONOCYTES % (AUTO) 11 % (0-12); NEUTROPHILS # (AUTO) 4.3 X 10^3 (1.8-7.8); NEUTROPHILS % (AUTO) 60 % (42-75); PLATELET COUNT 311 10^3/uL (130-400); RED CELL DISTRIBUTION WIDTH 13.6 % (10.0-14.5); WHITE BLOOD COUNT 7.1 10^3/uL (4.3-11.0)
[2019-09-25 07:16] LABS: CREATININE SERUM 1.26 MG/DL (0.60-1.30); MAGNESIUM 2.3 MG/DL (1.6-2.4); PHOSPHORUS 3.3 MG/DL (2.3-4.7); POTASSIUM 3.6 MMOL/L (3.6-5.0)
[2019-09-25 07:48] VITALS: BP 137/72
[2019-09-25] MEDS: LORATADINE (CLARITIN) 10 MG TAB PO SCH (08:00)
[2019-09-25] MEDS: SENNA W/DOCUSATE (SENOKOT S) TABLET PO SCH (08:00)
[2019-09-25] MEDS: meTOprolol SUCCINATE 100 MG (TOPROL XL) TAB PO SCH (08:00)
[2019-09-25] MEDS: PANTOPRAZOLE 40 MG (PROTONIX) TAB PO SCH (08:00)
[2019-09-25] MEDS: FUROSEMIDE 40 MG/4 ML INJ (LASIX) IVP SCH (08:00)
[2019-09-25] MEDS: OXYMETAZOLINE (AFRIN) 0.05% NA 30 ML BTL SCH (08:00)
--- NOTE | 2019-09-25 08:53 | Progress Note ---
CARMEN HANNAH MED STUDENT 09/25/19 9244: Progress Note Ms. Babb arrived in the ER 09/17 with significant shortness of breath, headache, body aches, stomach upset and weakness, which began earlier in the week a few days after she had gone to [place] to eat dinner. She has a history of CAD, HTN, DM, arthritis. Found to be negative for COVID, patient appeared to have fluid overload with new congestive heart failure requiring BiPAP in the ER weaned down to nasal cannula and has responded well to diuresis. 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 After being transferred back to Med/Surg, became tachycardic again 09/21 and was transferred back to ICU, stabilized with diltiazem drip. She has refused OAC with eliquis, continues on aspirin and plavix during this time. Has refused cardiac workup with catheterization. Seen by general surgery due to complaint of bad epigastric pain that was burning, resolved with meals, and began when she stopped Omeprazole. Also reports having melana intermittently. Refused GI workup. Found to be anemic and given iron 09/23 with improvement of Hgb. Today she reports feeling better than before, but still very fatigued and cold. She is able to get up and walk around on her own but tires easily. LE edema has improved, still mild itching and tenderness to palpation. Describes having pain in her lower chest/epigastric area she describes as indigestion while lifting a suitcase that her daughter brought her. The pain lasted an hour and gradually went away with rest. Denies having any melena today, although she does have pain with defecation. Denies any SOB, cough, palpitations, or abdominal pain. Plan is to be transferred to IRF today 09/24. Hemoglobin has improved with iron infusion from 7.6 09/23 to 8.9 today. Tolerance of exertion has improved. No recurrence of tachycardia or SOB. With history of CAD and indigestion-like pain with lifting, there is concern for angina, consider monitoring closely during rehab, continue to encourage further cardiac workup. Monitor for continued anemia and melena, consider encouraging GI workup. TELMA MARTINEZ DO 09/25/19 0407: Supervisory-Addendum Brief Verification & Attestation Participated in pt care: history, MDM, physical Personally performed: exam, history, MDM, supervision of care Care discussed with: Medical Student Procedures: n/a Results interpretation: Verified all documentation Verification and Attestation of Medical Student E/M Service A medical student performed and documented this service in my presence. I reviewed and verified all information documented by the medical student and made modifications to such information, when appropriate. I personally performed the physical exam and medical decision making. Telma Martinez, Sep 25, 2019,22:03 CARMEN HANNAH MED STUDENT Sep 25, 2019 08:53 TELMA MARTINEZ DO Sep 25, 2019 22:03
[2019-09-25 09:13] VITALS: BP 137/72
--- NOTE | 2019-09-25 10:01 | Discharge Summary ---
Diagnosis/Chief Complaint Date of Admission Sep 18, 2019 at 10:56 Date of Discharge Sep 25, 2019 at 09:10 Discharge Date: Sep 25, 2019 Discharge Diagnosis New onset diastolic CHF with volume overload COVID-19 negative New onset AF Bloody stools holding antiplatelets and OAC/Lovenox Anemia iron deficient iron infusions given Discharge Summary Discharge Physical Examination Allergies: Coded Allergies: Penicillins (Unverified Allergy, Mild, 12/18/08) Vitals & I&Os Vital Signs Date Time Temp Pulse Resp B/P (MAP) Pulse Ox O2 Delivery O2 Flow Rate FiO2 09/25/19 09:13 36.7 69 20 137/72 97 High Flow N/C 3.00 09/21/19 15:51 28 General Appearance: Alert, Oriented X3, Cooperative Respiratory: Clear to Auscultation Cardiovascular: Regular Rate Neuro: Normal Gait, Normal Speech, Strength at 5/5 X4 Ext Psych/Mental Status: Mental Status NL Hospital Course Was the Problem List Reviewed?: Yes Ms. Babb arrived in the ER 09/17 with significant shortness of breath, headache, body aches, stomach upset and weakness, which began earlier in the week a few days after she had gone to [employer] to eat dinner. She has a history of CAD, HTN, DM, arthritis. Found to be negative for COVID, patient appeared to have fluid overload with new congestive heart failure requiring BiPAP in the ER weaned down to nasal cannula and has responded well to diuresis. The coil strapper of 09/19 was transferred to ICU with new onset Afib RVR, stabilized with diltiazem drip. After being transferred back to Med/Surg, became tachycardic again 09/21 and was transferred back to ICU, stabilized with diltiazem drip. She has refused OAC with eliquis, continues on aspirin and plavix during this time. Has refused cardiac workup with catheterization. Seen by general surgery due to complaint of bad epigastric pain that was burning, resolved with meals, and began when she stopped Omeprazole. Also reports having melana intermittently. Refused GI workup. Found to be anemic and given iron 09/23 with improvement of Hgb. Today she reports feeling better than before, but still very fatigued and cold. She is able to get up and walk around on her own but tires easily. LE edema has improved, still mild itching and tenderness to palpation. Describes having pain in her lower chest/epigastric area she describes as indigestion while lifting a suitcase that her daughter brought her. The pain lasted an hour and gradually went away with rest. Denies having any melena today, although she does have pain with defecation. Denies any SOB, cough, palpitations, or abdominal pain. Plan is to be transferred to IRF today 09/24. Hemoglobin has improved with iron infusion from 7.6 09/23 to 8.9 today. Tolerance of exertion has improved. No recurrence of tachycardia or SOB. With history of CAD and indigestion-like pain with lifting, there is concern for angina, consider monitoring closely during rehab, continue to encourage further cardiac workup. Monitor for continued anemia and melena, consider encouraging GI workup. [facility] [employer] Labs (last 24 hrs) Laboratory Tests 09/18/19 09:08: White Blood Count 7.0, Red Blood Count 4.36, Hemoglobin 12.6, Hematocrit 40, Mean Corpuscular Volume 91, Mean Corpuscular Hemoglobin 29, Mean Corpuscular Hemoglobin Concent 32, Red Cell Distribution Width 14.0, Platelet Count 274, Mean Platelet Volume 9.6, Neutrophils (%) (Auto) 76H, Lymphocytes (%) (Auto) 17, Monocytes (%) (Auto) 6, Eosinophils (%) (Auto) 0, Basophils (%) (Auto) 0, Neutrophils # (Auto) 5.4, Lymphocytes # (Auto) 1.2, Monocytes # (Auto) 0.4, Eosinophils # (Auto) 0.0, Basophils # (Auto) 0.0, Erythrocyte Sedimentation Rate 23, Prothrombin Time 14.7, INR Comment 1.1, Activated Partial Thromboplast Time 34, D-Dimer 0.99H, Sodium Level 143, Potassium Level 4.2, Chloride Level 107, Carbon Dioxide Level 26, Anion Gap 10, Blood Urea Nitrogen 30H, Creatinine 1.07, Estimat Glomerular Filtration Rate 49, BUN/Creatinine Ratio 28, Glucose Level 174H, Lactic Acid Level 0.81, Calcium Level 8.7, Corrected Calcium 8.9, Total Bilirubin 0.4, Aspartate Amino Transf (AST/SGOT) 16, Alanine Aminotransferase (ALT/SGPT) 16, Alkaline Phosphatase 54, Lactate Dehydrogenase 176, Troponin I 0.038H, C-Reactive Protein High Sensitivity 0.97H, B-Type Natriuretic Peptide 691.2H, Total Protein 6.9, Albumin 3.8, Procalcitonin 0.04, SARS-CoV-2 IgG Antibody Negative 09/18/19 09:24: Urine Color YELLOW, Urine Clarity CLEAR, Urine pH 5.0, Urine Specific [place] 1.025H, Urine Protein 1+H, Urine Glucose (UA) NEGATIVE, Urine Ketones NEGATIVE, Urine Nitrite NEGATIVE, Urine Bilirubin NEGATIVE, Urine Urobilinogen 0.2, Urine Leukocyte Esterase NEGATIVE, Urine RBC (Auto) NEGATIVE, Urine RBC 2-5H, Urine WBC RARE, Urine Squamous Epithelial Cells 2-5, Urine Crystals NONE, Urine Bacteria FEWH, Urine Casts NONE, Urine Mucus NEGATIVE, Urine Culture Indicated CULTURE PENDING, Coronavirus (COVID-19)(PCR) Negative 09/18/19 10:56: Lab Scanned Report Referred Lab Report 09/18/19 11:50: Blood Gas Puncture Site LEFT RADIAL, Blood Gas Patient Temperature 36, Arterial Blood pH 7.37, Arterial Blood Partial Pressure CO2 50H, Arterial Blood Partial Pressure O2 88, Arterial Blood HCO3 28H, Arterial Blood Total CO2 30.0, Arterial Blood Oxygen Saturation 98, Arterial Blood Base Excess 3.2H, Bacilio Test POSITIVE, Blood Gas Ventilator Setting NO, Blood Gas Inspired Oxygen 50% BIPAP 09/19/19 03:17: White Blood Count 4.2L, Red Blood Count 4.27L, Hemoglobin 12.5, Hematocrit 40, Mean Corpuscular Volume 93, Mean Corpuscular Hemoglobin 29, Mean Corpuscular Hem oglobin Concent 32, Red Cell Distribution Width 14.4, Platelet Count 55L, Mean Platelet Volume 10.3, Sodium Level 138, Potassium Level 4.9, Chloride Level 101, Carbon Dioxide Level 21, Anion Gap 16H, Blood Urea Nitrogen 21H, Creatinine 0.93, Estimat Glomerular Filtration Rate 57, BUN/Creatinine Ratio 23, Glucose Level 112H, Calcium Level 8.6, Corrected Calcium 9.0, Phosphorus Level 3.9, Magnesium Level 2.0, Total Bilirubin 0.3, Aspartate Amino Transf (AST/SGOT) 21, Alanine Aminotransferase (ALT/SGPT) 20, Alkaline Phosphatase 67, Troponin I 0.589*H, Total Protein 5.8L, Albumin 3.5, Triglycerides Level 86, Cholesterol Level 94, LDL Cholesterol Direct 45, VLDL Cholesterol 17, HDL Cholesterol 36L, Thyroid Stimulating Hormone (TSH) 4.61 09/19/19 12:12: Platelet Count 305 09/20/19 05:46: Glucometer 215H 09/20/19 07:40: White Blood Count 8.4, Red Blood Count 3.49L, Hemoglobin 10.2L, Hematocrit 32L, Mean Corpuscular Volume 91, Mean Corpuscular Hemoglobin 29, Mean Corpuscular Hemoglobin Concent 32, Red Cell Distribution Width 13.5, Platelet Count 275, Mean Platelet Volume 9.4, Sodium Level 141, Potassium Level 3.8, Chloride Level 96L, Carbon Dioxide Level 33H, Anion Gap 12, Blood Urea Nitrogen 77H, Creatinine 1.29, Estimat Glomerular Filtration Rate 39, BUN/Creatinine Ratio 60, Glucose Level 184H, Calcium Level 8.5, Corrected Calcium 9.1, Total Bilirubin 0.4, Aspartate Amino Transf (AST/SGOT) 12, Alanine Aminotransferase (ALT/SGPT) 13, Alkaline Phosphatase 37L, Troponin I 0.037H, Total Protein 5.9L, Albumin 3.3, Neutrophils (%) (Auto) 64, Lymphocytes (%) (Auto) 25, Monocytes (%) (Auto) 9, Eosinophils (%) (Auto) 1, Basophils (%) (Auto) 0, Neutrophils # (Auto) 5.4, Lymphocytes # (Auto) 2.1, Monocytes # (Auto) 0.8, Eosinophils # (Auto) 0.1, Basophils # (Auto) 0.0 09/21/19 03:07: White Blood Count 6.9, Red Blood Count 3.17L, Hemoglobin 9.0L, Hematocrit 29L, Mean Corpuscular Volume 91, Mean Corpuscular Hemoglobin 28, Mean Corpuscular Hemoglobin Concent 31L, Red Cell Distribution Width 14.0, Platelet Count 259, Mean Platelet Volume 9.7, Neutrophils (%) (Auto) 55, Lymphocytes (%) (Auto) 32, Monocytes (%) (Auto) 10, Eosinophils (%) (Auto) 2, Basophils (%) (Auto) 0, Neutrophils # (Auto) 3.8, Lymphocytes # (Auto) 2.2, Monocytes # (Auto) 0.7, Eosinophils # (Auto) 0.2, Basophils # (Auto) 0.0, Sodium Level 144, Potassium Level 3.3L, Chloride Level 98, Carbon Dioxide Level 32, Anion Gap 14, Blood Urea Nitrogen 85H, Creatinine 1.73H, Estimat Glomerular Filtration Rate 28, BUN/Creatinine Ratio 49, Glucose Level 94, Calcium Level 8.3L, Phosphorus Level 4.0, Magnesium Level 1.9, B-Type Natriuretic Peptide 57.7, Procalcitonin 0.32H 09/22/19 05:12: White Blood Count 5.8, Red Blood Count 2.81L, Hemoglobin 8.1L, Hematocrit 26L, Mean Corpuscular Volume 93, Mean Corpuscular Hemoglobin 29, Mean Corpuscular Hemoglobin Concent 31L, Red Cell Distribution Width 13.6, Platelet Count 219, Mean Platelet Volume 10.1, Neutrophils (%) (Auto) 55, Lymphocytes (%) (Auto) 31, Monocytes (%) (Auto) 11, Eosinophils (%) (Auto) 3, Basophils (%) (Auto) 1, Neutrophils # (Auto) 3.2, Lymphocytes # (Auto) 1.8, Monocytes # (Auto) 0.6, Eosinophils # (Auto) 0.2, Basophils # (Auto) 0.0, Sodium Level 145, Potassium Level 3.9, Chloride Level 102, Carbon Dioxide Level 31, Anion Gap 12, Blood Urea Nitrogen 81H, Creatinine 1.47H, Estimat Glomerular Filtration Rate 34, BUN/Creatinine Ratio 55, Glucose Level 158H, Calcium Level 8.3L, Phosphorus Level 3.5, Magnesium Level 2.1 09/23/19 02:13: White Blood Count 5.6, Red Blood Count 2.83L, Hemoglobin 8.1L, Hematocrit 26L, Mean Corpuscular Volume 93, Mean Corpuscular Hemoglobin 29, Mean Corpuscular Hemoglobin Concent 31L, Red Cell Distribution Width 13.8, Platelet Count 244, Mean Platelet Volume 10.1, Neutrophils (%) (Auto) 56, Lymphocytes (%) (Auto) 31, Monocytes (%) (Auto) 10, Eosinophils (%) (Auto) 3, Basophils (%) (Auto) 0, Neutrophils # (Auto) 3.1, Lymphocytes # (Auto) 1.7, Monocytes # (Auto) 0.6, Eosinophils # (Auto) 0.2, Basophils # (Auto) 0.0, Sodium Level 144, Potassium Level 3.8, Chloride Level 100, Carbon Dioxide Level 32, Anion Gap 12, Blood Urea Nitrogen 62H, Creatinine 1.47H, Estimat Glomerular Filtration Rate 34, BUN/Creatinine Ratio 42, Glucose Level 170H, Calcium Level 8.3L, Phosphorus Level 4.1, Magnesium Level 2.3 09/23/19 10:08: Glucometer 223H 09/24/19 05:08: White Blood Count 5.9, Red Blood Count 2.64L, Hemoglobin 7.6L, Hematocrit 25L, Mean Corpuscular Volume 93, Mean Corpuscular Hemoglobin 29, Mean Corpuscular Hemoglobin Concent 31L, Red Cell Distribution Width 13.4, Platelet Count 219, Mean Platelet Volume 10.0, Neutrophils (%) (Auto) 58, Lymphocytes (%) (Auto) 29, Monocytes (%) (Auto) 10, Eosinophils (%) (Auto) 3, Basophils (%) (Auto) 0, Neutrophils # (Auto) 3.4, Lymphocytes # (Auto) 1.7, Monocytes # (Auto) 0.6, Eosinophils # (Auto) 0.2, Basophils # (Auto) 0.0, Sodium Level 144, Potassium Level 3.8, Chloride Level 102, Carbon Dioxide Level 33H, Anion Gap 9, Blood Urea Nitrogen 44H, Creatinine 1.16, Estimat Glomerular Filtration Rate 45, B UN/Creatinine Ratio 38, Glucose Level 137H, Calcium Level 8.2L, Phosphorus Level 3.3, Magnesium Level 2.5H, Iron Level 24L 09/25/19 06:47: White Blood Count 7.1, Red Blood Count 3.08L, Hemoglobin 8.9L, Hematocrit 28L, Mean Corpuscular Volume 92, Mean Corpuscular Hemoglobin 29, Mean Corpuscular Hemoglobin Concent 32, Red Cell Distribution Width 13.6, Platelet Count 311, Mean Platelet Volume 9.3, Neutrophils (%) (Auto) 60, Lymphocytes (%) (Auto) 25, Monocytes (%) (Auto) 11, Eosinophils (%) (Auto) 4, Basophils (%) (Auto) 0, Neutrophils # (Auto) 4.3, Lymphocytes # (Auto) 1.8, Monocytes # (Auto) 0.8, Eosinophils # (Auto) 0.3, Basophils # (Auto) 0.0, Sodium Level 143, Potassium Level 3.6, Chloride Level 99, Carbon Dioxide Level 31, Anion Gap 13, Blood Urea Nitrogen 41H, Creatinine 1.26, Estimat Glomerular Filtration Rate 40, BUN/Creatinine Ratio 33, Glucose Level 159H, Calcium Level 9.0, Phosphorus Level 3.3, Magnesium Level 2.3 Microbiology 09/20/19 MRSA Screen - Final, Complete MRSA not isolated 09/18/19 Urine Culture - Final, Complete 3 or more isolates 09/18/19 Blood Culture - Final, Complete No growth Pending Labs Microbiology Date/Time Source Procedure Growth Status 09/20/19 05:30 Nasal MRSA Screen - Final MRSA not isolated Complete 09/18/19 09:24 Urine Clean Catch Urine Culture - Final 3 or more isolates Complete 09/18/19 09:13 Peripheral Rt Forearm Blood Culture - Final No growth Complete 09/18/19 09:08 Peripheral Rt Ac Blood Culture - Final No growth Complete Laboratory Tests 09/18/19 09:08: White Blood Count 7.0, Red Blood Count 4.36, Hemoglobin 12.6, Hematocrit 40, Mean Corpuscular Volume 91, Mean Corpuscular Hemoglobin 29, Mean Corpuscular Hemoglobin Concent 32, Red Cell Distribution Width 14.0, Platelet Count 274, Mean Platelet Volume 9.6, Neutrophils (%) (Auto) 76, Lymphocytes (%) (Auto) 17, Monocytes (%) (Auto) 6, Eosinophils (%) (Auto) 0, Basophils (%) (Auto) 0, Neutrophils # (Auto) 5.4, Lymphocytes # (Auto) 1.2, Monocytes # (Auto) 0.4, Eosinophils # (Auto) 0.0, Basophils # (Auto) 0.0, Erythrocyte Sedimentation Rate 23, Prothrombin Time 14.7, INR Comment 1.1, Activated Partial Thromboplast Time 34, D-Dimer 0.99, Sodium Level 143, Potassium Level 4.2, Chloride Level 107, Carbon Dioxide Level 26, Anion Gap 10, Blood Urea Nitrogen 30, Creatinine 1.07, Estimat Glomerular Filtration Rate 49, BUN/Creatinine Ratio 28, Glucose Level 174, Lactic Acid Level 0.81, Calcium Level 8.7, Corrected Calcium 8.9, Total Bilirubin 0.4, Aspartate Amino Transf (AST/SGOT) 16, Alanine Aminotransferase (ALT/SGPT) 16, Alkaline Phosphatase 54, Lactate Dehydrogenase 176, Troponin I 0.038, C-Reactive Protein High Sensitivity 0.97, B-Type Natriuretic Peptide 691.2, Total Protein 6.9, Albumin 3.8, Procalcitonin 0.04, SARS-CoV-2 IgG Antibody Negative 09/18/19 09:24: Urine Color YELLOW, Urine Clarity CLEAR, Urine pH 5.0, Urine Specific [place] 1.025, Urine Protein 1+, Urine Glucose (UA) NEGATIVE, Urine Ketones NEGATIVE, Urine Nitrite NEGATIVE, Urine Bilirubin NEGATIVE, Urine Urobilinogen 0.2, Urine Leukocyte Esterase NEGATIVE, Urine RBC (Auto) NEGATIVE, Urine RBC 2-5, Urine WBC RARE, Urine Squamous Epithelial Cells 2-5, Urine Crystals NONE, Urine Bacteria FEW, Urine Casts NONE, Urine Mucus NEGATIVE, Urine Culture Indicated CULTURE PENDING, Coronavirus (COVID-19)(PCR) Negative 09/18/19 10:56: Lab Scanned Report Referred Lab Report 09/18/19 11:50: Blood Gas Puncture Site LEFT RADIAL, Blood Gas Patient Temperature 36, Arterial Blood pH 7.37, Arterial Blood Partial Pressure CO2 50, Arterial Blood Partial Pressure O2 88, Arterial Blood HCO3 28, Arterial Blood Total CO2 30.0, Arterial Blood Oxygen Saturation 98, Arterial Blood Base Excess 3.2, Bacilio Test POSITIVE, Blood Gas Ventilator Setting NO, Blood Gas Inspired Oxygen 50% BIPAP 09/19/19 03:17: White Blood Count 4.2, Red Blood Count 4.27, Hemoglobin 12.5, Hematocrit 40, Mean Corpuscular Volume 93, Mean Corpuscular Hemoglobin 29, Mean Corpuscular Hemoglobin Concent 32, Red Cell Distribution Width 14.4, Platelet Count 55, Mean Platelet Volume 10.3, Sodium Level 138, Potassium Level 4.9, Chloride Level 101, Carbon Dioxide Level 21, Anion Gap 16, Blood Urea Nitrogen 21, Creatinine 0.93, Estimat Glomerular Filtration Rate 57, BUN/Creatinine Ratio 23, Glucose Level 112, Calcium Level 8.6, Corrected Calcium 9.0, Phosphorus Level 3.9, Magnesium Level 2.0, Total Bilirubin 0.3, Aspartate Amino Transf (AST/SGOT) 21, Alanine Aminotransferase (ALT/SGPT) 20, Alkaline Phosphatase 67, Troponin I 0.589, Total Protein 5.8, Albumin 3.5, Triglycerides Level 86, Cholesterol Level 94, LDL Cholesterol Direct 45, VLDL Cholesterol 17, HDL Cholesterol 36, Thyroid Stimulating Hormone (TSH) 4.61 09/19/19 12:12: Platelet Count 305 09/20/19 05:46: Glucometer 215 09/20/19 07:40: White Blood Count 8.4, Red Blood Count 3.49, Hemoglobin 10.2, Hematocrit 32, Mean Corpuscular Volume 91, Mean Corpuscular Hemoglobin 29, Mean Corpuscular H emoglobin Concent 32, Red Cell Distribution Width 13.5, Platelet Count 275, Mean Platelet Volume 9.4, Sodium Level 141, Potassium Level 3.8, Chloride Level 96, Carbon Dioxide Level 33, Anion Gap 12, Blood Urea Nitrogen 77, Creatinine 1.29, Estimat Glomerular Filtration Rate 39, BUN/Creatinine Ratio 60, Glucose Level 184, Calcium Level 8.5, Corrected Calcium 9.1, Total Bilirubin 0.4, Aspartate Amino Transf (AST/SGOT) 12, Alanine Aminotransferase (ALT/SGPT) 13, Alkaline Phosphatase 37, Troponin I 0.037, Total Protein 5.9, Albumin 3.3, Neutrophils (%) (Auto) 64, Lymphocytes (%) (Auto) 25, Monocytes (%) (Auto) 9, Eosinophils (%) (Auto) 1, Basophils (%) (Auto) 0, Neutrophils # (Auto) 5.4, Lymphocytes # (Auto) 2.1, Monocytes # (Auto) 0.8, Eosinophils # (Auto) 0.1, Basophils # (Auto) 0.0 09/21/19 03:07: White Blood Count 6.9, Red Blood Count 3.17, Hemoglobin 9.0, Hematocrit 29, Mean Corpuscular Volume 91, Mean Corpuscular Hemoglobin 28, Mean Corpuscular Hemoglobin Concent 31, Red Cell Distribution Width 14.0, Platelet Count 259, Mean Platelet Volume 9.7, Neutrophils (%) (Auto) 55, Lymphocytes (%) (Auto) 32, Monocytes (%) (Auto) 10, Eosinophils (%) (Auto) 2, Basophils (%) (Auto) 0, Neutrophils # (Auto) 3.8, Lymphocytes # (Auto) 2.2, Monocytes # (Auto) 0.7, Eosinophils # (Auto) 0.2, Basophils # (Auto) 0.0, Sodium Level 144, Potassium Level 3.3, Chloride Level 98, Carbon Dioxide Level 32, Anion Gap 14, Blood Urea Nitrogen 85, Creatinine 1.73, Estimat Glomerular Filtration Rate 28, BUN/Creatinine Ratio 49, Glucose Level 94, Calcium Level 8.3, Phosphorus Level 4.0, Magnesium Level 1.9, B-Type Natriuretic Peptide 57.7, Procalcitonin 0.32 09/22/19 05:12: White Blood Count 5.8, Red Blood Count 2.81, Hemoglobin 8.1, Hematocrit 26, Mean Corpuscular Volume 93, Mean Corpuscular Hemoglobin 29, Mean Corpuscular Hemoglobin Concent 31, Red Cell Distribution Width 13.6, Platelet Count 219, Mean Platelet Volume 10.1, Neutrophils (%) (Auto) 55, Lymphocytes (%) (Auto) 31, Monocytes (%) (Auto) 11, Eosinophils (%) (Auto) 3, Basophils (%) (Auto) 1, Neutrophils # (Auto) 3.2, Lymphocytes # (Auto) 1.8, Monocytes # (Auto) 0.6, Eos inophils # (Auto) 0.2, Basophils # (Auto) 0.0, Sodium Level 145, Potassium Level 3.9, Chloride Level 102, Carbon Dioxide Level 31, Anion Gap 12, Blood Urea Nitrogen 81, Creatinine 1.47, Estimat Glomerular Filtration Rate 34, BUN/Creatinine Ratio 55, Glucose Level 158, Calcium Level 8.3, Phosphorus Level 3.5, Magnesium Level 2.1 09/23/19 02:13: White Blood Count 5.6, Red Blood Count 2.83, Hemoglobin 8.1, Hematocrit 26, Mean Corpuscular Volume 93, Mean Corpuscular Hemoglobin 29, Mean Corpuscular Hemoglobin Concent 31, Red Cell Distribution Width 13.8, Platelet Count 244, Mean Platelet Volume 10.1, Neutrophils (%) (Auto) 56, Lymphocytes (%) (Auto) 31, Monocytes (%) (Auto) 10, Eosinophils (%) (Auto) 3, Basophils (%) (Auto) 0, Neutrophils # (Auto) 3.1, Lymphocytes # (Auto) 1.7, Monocytes # (Auto) 0.6, Eosinophils # (Auto) 0.2, Basophils # (Auto) 0.0, Sodium Level 144, Potassium Level 3.8, Chloride Level 100, Carbon Dioxide Level 32, Anion Gap 12, Blood Urea Nitrogen 62, Creatinine 1.47, Estimat Glomerular Filtration Rate 34, BUN/Creatinine Ratio 42, Glucose Level 170, Calcium Level 8.3, Phosphorus Level 4.1, Magnesium Level 2.3 09/23/19 10:08: Glucometer 223 09/24/19 05:08: White Blood Count 5.9, Red Blood Count 2.64, Hemoglobin 7.6, Hematocrit 25, Mean Corpuscular Volume 93, Mean Corpuscular Hemoglobin 29, Mean Corpuscular Hemog lobin Concent 31, Red Cell Distribution Width 13.4, Platelet Count 219, Mean Platelet Volume 10.0, Neutrophils (%) (Auto) 58, Lymphocytes (%) (Auto) 29, Monocytes (%) (Auto) 10, Eosinophils (%) (Auto) 3, Basophils (%) (Auto) 0, Neutrophils # (Auto) 3.4, Lymphocytes # (Auto) 1.7, Monocytes # (Auto) 0.6, Eosinophils # (Auto) 0.2, Basophils # (Auto) 0.0, Sodium Level 144, Potassium Le stephanie 3.8, Chloride Level 102, Carbon Dioxide Level 33, Anion Gap 9, Blood Urea Nitrogen 44, Creatinine 1.16, Estimat Glomerular Filtration Rate 45, BUN/Creatinine Ratio 38, Glucose Level 137, Calcium Level 8.2, Phosphorus Level 3.3, Magnesium Level 2.5, Iron Level 24 09/25/19 06:47: White Blood Count 7.1, Red Blood Count 3.08, Hemoglobin 8.9, Hematocrit 28, Mean Corpuscular Volume 92, Mean Corpuscular Hemoglobin 29, Mean Corpuscular Hemoglobin Concent 32, Red Cell Distribution Width 13.6, Platelet Count 311, Mean Platelet Volume 9.3, Neutrophils (%) (Auto) 60, Lymphocytes (%) (Auto) 25, Monocytes (%) (Auto) 11, Eosinophils (%) (Auto) 4, Basophils (%) (Auto) 0, Neutrophils # (Auto) 4.3, Lymphocytes # (Auto) 1.8, Monocytes # (Auto) 0.8, Eos inophils # (Auto) 0.3, Basophils # (Auto) 0.0, Sodium Level 143, Potassium Level 3.6, Chloride Level 99, Carbon Dioxide Level 31, Anion Gap 13, Blood Urea Nitrogen 41, Creatinine 1.26, Estimat Glomerular Filtration Rate 40, BUN/Creatinine Ratio 33, Glucose Level 159, Calcium Level 9.0, Phosphorus Level 3.3, Magnesium Level 2.3 Discharge Home Medications: Active Scripts Active Reported Aspirin EC (Aspirin) 81 Mg Tablet.dr 81 Mg PO DAILY Fenofibrate 54 Mg Tablet 54 Mg PO DAILY Atorvastatin Calcium 10 Mg Tablet 10 Mg PO DAILY Amlodipine Besylate 5 Mg Tablet 5 Mg PO DAILY Metoprolol Succinate 100 Mg Tab.er.24h 100 Mg PO DAILY Glyburide 2.5 Mg Tablet 2.5 Mg PO DAILY Lisinopril-Hctz 20-25 mg Tab (Lisinopril/Hydrochlorothiazide) 1 Each Tablet 1 Ea PO DAILY Hydralazine HCl 25 Mg Tablet 25 Mg PO BID Instructions to patient/family Please see electronic discharge instructions given to patient. Diagnosis/Problems Diagnosis/Problems (1) Respiratory distress (2) CAD (coronary artery disease) (3) Hx of CABG (4) Diabetes (5) Hypertension (6) Hyperlipidemia (7) Arthritis (8) Hypercapnia (9) BiPAP (biphasic positive airway pressure) dependence (10) Acute heart failure Status: Acute Qualifiers: Qualified Codes: I50.9 - Heart failure, unspecified (11) Type 2 AMI (acute myocardial infarction) (12) Atrial fibrillation with rapid ventricular response Clinical Quality Measures DVT/VTE Risk/Contraindication: Risk Factor Score Per Nursin RFS Level Per Nursing on Admit: 4+=Very High KEILA MARTINEZ DO Sep 25, 2019 10:01
== END 2019-09-25 09:10 | DRG 280 ==
LOC: EDUNIT# 08:28 → ER 08:30 → ICU 10:56 → 4TH 09-19 11:00 → ICU 09-20 05:04 → 4TH 09-21 13:12 → ICU 09-22 10:48 → 4TH 09-23 11:32
PROVIDERS: ADMIT Internal Medicine; ATTEND Internal Medicine
DX: I11.0 Hypertensive heart disease with heart failure (principal); I50.21 Acute systolic (congestive) heart failure; I21.A1 Myocardial infarction type 2; J96.00 Acute respiratory failure, unspecified whether with hypoxia or hypercapnia; J45.909 Unspecified asthma, uncomplicated; E66.9 Obesity, unspecified; I25.10 Atherosclerotic heart disease of native coronary artery without angina pectoris; I48.91 Unspecified atrial fibrillation; K29.70 Gastritis, unspecified, without bleeding; E11.9 Type 2 diabetes mellitus without complications; E78.5 Hyperlipidemia, unspecified; K59.00 Constipation, unspecified; M19.91 Primary osteoarthritis, unspecified site; M79.10 Myalgia, unspecified site; R51 Headache; Z20.828 Contact with and (suspected) exposure to other viral communicable diseases; Z68.33 Body mass index [BMI] 33.0-33.9, adult; Z95.1 Presence of aortocoronary bypass graft; Z91.19 Patient's noncompliance with other medical treatment and regimen; Z85.43 Personal history of malignant neoplasm of ovary; Z90.710 Acquired absence of both cervix and uterus
CPT/HCPCS: 36415; 51702; 71045; 80048; 80053; 80061; 81000; 82805; 82962; 83540; 83605; 83615; 83735; 83880; 84100; 84145; 84443; 84484; 85025; 85027; 85049; 85379; 85610; 85652; 85730; 86141; 86769; 87040; 87081; 87088; 87635; 93005; 93306; 94640; 94660; 94760; 96374; 96375

== ENCOUNTER 2019-09-25 09:28 | Inpatient (IN) | payer MEDICARE ==
[~2019-09-25] VITALS: Ht 160 cm; Wt 79.4 kg
--- NOTE | 2019-09-25 09:00 | NUR ---
BEV RODRIGUEZ admitted to room 228, with an admitting diagnosis of CHF AND AFIB WITH RVR, on 09/25/19 from [facility] via WHEELCHAIR, accompanied by THERAPY. BEV RODRIGUEZ introduced to surroundings, call light, bed controls, phone, TV, temperature control, lights, meal times, smoking policy, visitor policy, side rail policy, bathrooms and showers. Patient Rights given to patient in the handbook. BEV RODRIGUEZ verbalizes understanding that [facility] is not responsible for the loss or damage to any personal effects or valuables that are kept in the patient's possession during their hospitalization. The following Patient Care Plans were discussed with the PATIENT: Discharge Planning, IMPAIRED GAS EXCHANGE, INEFFECTIVE BREATHING PATTERN, ACTIVITY INTOLERANCE, ANXIETY, KNOWLEDGE DEFICIT: CHF and RISK FOR ALTERATION IN ELECTROLYTE BALANCE. BEV RODRIGUEZ verbalizes understanding of Interdisciplinary Patient Education. Patient received Patient Rights Booklet, which includes Privacy Act Statement and Data Collection Information Summary.
--- NOTE | 2019-09-25 09:08 | NUR ---
I ENTERED THE MED REC WHEN PT WAS IN ICU ON 09-18-2019 AND FOLLOWED UP WITH THE PT TODAY (09-25-2019) TO COMPLETE THE MED REC PLEASE SEE MY NOTE ON 09-18-2019 IF THERE ARE QUESTIONS
[~2019-09-25 09:28] MED LIST changes: +ALPRAZolam 0.25 MG (XANAX) TAB PO PRN; +AMLO5TAB9 PO; +ASPI-983 PO; +ATOR10TA66 PO; +BISACODYL 10 MG SUPP (DULCOLAX) PR PRN; +CALCIUM CARBONATE 500 MG (TUMS) TAB.CHEW PO PRN; +CHOL10007 PO; +DOCUSATE SODIUM 100 MG (COLACE) CAP PO PRN; +ENOXAPARIN 40 MG/0.4 ML (LOVENOX) SYR SC SCH; +ETD200C PO; +FENO54TA PO; +FLAX10004 PO; +FLEET ENEMA ADULT 1 EA BTL PR PRN; +GLYB2.5T4 PO; +HYDR-3923 PO; +LACTULOSE SYRUP 10GM/15ML (ENULOSE) 30ML UDC PO PRN; +LISI1TAB26 PO; +LOPERAMIDE 2 MG (IMODIUM) TABLET PO PRN; +MTP100TCR PO; +ONDANSETRON 4 MG (ZOFRAN) ORAL DISSOLVE TAB PO PRN; +diphenhydrAMINE 25 MG TAB (BENADRYL) PO PRN; +guaiFENesin/CODEINE (ROBITUSSIN AC) 10ML UDC PO PRN
[2019-09-25 09:45] VITALS: BP 121/56
--- NOTE | 2019-09-25 10:05 | PM&R Post Admission Assessment ---
PM&R HP Date of Visit: Sep 25, 2019 Time of Visit: 10:00 History of Present Illness CC: Debility with hypoxia with new onset CHF and AF and anemia HPI: This is an 84yoWF clinic patient of mine for the past 17 years who has a h/o HTN, HLP, OA knees, and CAD previous CABG with non-compliance with Cardiology who presents to the IRF after a very complicated and long critical care course in ICU and 4th floor. New onset CHF and AF has caused severe debility and weakness and hypoxia requiring O2 24/7 with anasarca. No pain reported. Bloody stools are improved and asking for Anusol HC suppository. I have reviewed the patient's meds and labs and Cardiology notes. DC note form med-surg medical student Sascha Hannah: Ms. Babb arrived in the ER 09/17 with significant shortness of breath, headache, body aches, stomach upset and weakness, which began earlier in the week a few days after she had gone to [place] to eat dinner. She has a history of CAD, HTN, DM, arthritis. Found to be negative for COVID, patient appeared to have fluid overload with new congestive heart failure requiring BiPAP in the ER weaned down to nasal cannula and has responded well to diuresis. 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 After being transferred back to Med/Surg, became tachycardic again 09/21 and was transferred back to ICU, stabilized with diltiazem drip. She has refused OAC with eliquis, continues on aspirin and plavix during this time. Has refused cardiac workup with catheterization. Seen by general surgery due to complaint of bad epigastric pain that was burning, resolved with meals, and began when she stopped Omeprazole. Also reports having melana intermittently. Refused GI workup. Found to be anemic and given iron 09/23 with improvement of Hgb. Today she reports feeling better than before, but still very fatigued and cold. She is able to get up and walk around on her own but tires easily. LE edema has improved, still mild itching and tenderness to palpation. Describes having pain in her lower chest/epigastric area she describes as indigestion while lifting a suitcase that her daughter brought her. The pain lasted an hour and gradually went away with rest. Denies having any melena today, although she does have pain with defecation. Denies any SOB, cough, palpitations, or abdominal pain. Plan is to be transferred to IRF today 09/24. Hemoglobin has improved with iron infusion from 7.6 09/23 to 8.9 today. Tolerance of exertion has improved. No recurrence of tachycardia or SOB. With history of CAD and indigestion-like pain with lifting, there is concern for angina, consider monitoring closely during rehab, continue to encourage further cardiac workup. Monitor for continued anemia and melena, consider encouraging GI workup. SASCHA HANNAH MED STUDENT Past Qqchtme-Idsfqh-Nqdetm Hx Past Med/Social Hx: Reviewed Nursing Past Med/Soc Hx, Reviewed and Corrections made Patient Social History Marrital Status: Employed/Student: retired Alcohol Use: Denies Use Smoking Status: Never a Smoker Recent Hopitalizations: No Seasonal Allergies Seasonal Allergies: No Past Medical History Surgeries: CABG, Hysterectomy Cardiac: Atrial Fibrillation (new 09/2019), Coronary Artery Disease, High Cholesterol, Hypertension Reproductive: No Gastrointestinal: Gastrointestinal Bleed, Hemorrhoids Musculoskeletal: Arthritis, Chronic Back Pain Endocrine: Diabetes, Non-Insulin dep Cancer: Ovarian History of Blood Disorders: No Family History No Pertinent Family Hx PM&R Allergy/Meds/Data Review Allergies Coded Allergies: Penicillins (Unverified Allergy, Mild, 12/18/08) Home Medications Scheduled Amlodipine Besylate (Amlodipine Besylate), 5 MG PO DAILY, (Reported) Aspirin (Aspirin EC), 81 MG PO DAILY, (Reported) Atorvastatin Calcium (Atorvastatin Calcium), 10 MG PO DAILY, (Reported) Fenofibrate (Fenofibrate), 54 MG PO DAILY, (Reported) Glyburide (Glyburide), 2.5 MG PO DAILY, (Reported) Hydralazine HCl (Hydralazine HCl), 25 MG PO BID, (Reported) Lisinopril/Hydrochlorothiazide (Lisinopril-Hctz 20-25 mg Tab), 1 EA PO DAILY, (Reported) Metoprolol Succinate (Metoprolol Succinate), 100 MG PO DAILY, (Reported) Discontinued Medications Cholecalciferol (Vitamin D3) (Vitamin D3), 25 MCG PO TWICE WEEKLY, (Reported) Discontinued Reason: No Longer Taking Etodolac (Etodolac), 200 MG PO BID, (Reported) Discontinued Reason: No Longer Taking Flaxseed Oil (Flaxseed Oil), 1,000 MG PO DAILY, (Reported) Discontinued Reason: No Longer Taking Lisinopril/Hydrochlorothiazide (Zestoretic 20-25 Tablet), 1 TAB PO DAILY, (Reported) Discontinued Reason: No Longer Taking Lovastatin (Lovastatin 20 Mg), 1 TAB PO HS, (Reported) Discontinued Reason: No Longer Taking Current Medications Current Medications Reviewed Review of Systems Constitutional: see HPI, malaise, weakness EENTM: no symptoms reported Respiratory: dyspnea on exertion Cardiovascular: no symptoms reported Gastrointestinal: loss of appetite, melena, nausea Genitourinary: no symptoms reported Musculoskeletal: back pain, joint pain Skin: no symptoms reported Psychiatric/Neurological: Anxiety All Other Systems Reviewed Negative Unless Noted: Yes Physical Exam Physical Exam Vital Signs Vital Signs - First Documented 09/25/19 09:45 Temp 36.6 Pulse 70 Resp 18 B/P (MAP) 121/56 (77) Pulse Ox 97 O2 Delivery High Flow N/C O2 Flow Rate 3.00 Capillary Refill : Height, Weight, BMI Height: '" Weight: lbs. oz. kg; 32.22 BMI Method: General Appearance: No Apparent Distress, WD/WN, Chronically ill, Obese Eyes: Bilateral Eye Normal Inspection, Bilateral Eye PERRL HEENT: PERRL/EOMI, Normal ENT Inspection, Pharynx Normal Neck: Full Range of Motion, Normal Inspection, Non Tender, Supple, Carotid Bruit Respiratory: Chest Non Tender, Lungs Clear, Normal Breath Sounds, No Accessory Muscle Use, No Respiratory Distress Cardiovascular: Regular Rate, Rhythm, No Edema, No Gallop, No JVD, No Murmur, Normal Peripheral Pulses Gastrointestinal: Normal Bowel Sounds, No Organomegaly, No Pulsatile Mass, Non Tender, Soft Back: Normal Inspection, No CVA Tenderness, No Vertebral Tenderness Extremity: Normal Capillary Refill, Normal Inspection, Normal Range of Motion, Non Tender, No Calf Tenderness, No Pedal Edema Neurologic/Psychiatric: Alert, Oriented x3, No Motor/Sensory Deficits, Normal M ood/Affect, case reviewer II-XII Norm as Tested, Motor Weakness (generalized extremities) Skin: Normal Color, Warm/Dry Lymphatic: No Adenopathy PM&R Medical Assessment & Plan REHAB/MEDICAL ASSESSMENT AND PLAN: REHAB IMPAIRMENT GROUP: 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 ETIOLOGIC DIAGNOSIS: 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 The comorbidities that impact the patients function and/or functional outcome by: new onset CHF, new onset PAF, anemia, melena, elevated troponin, iron def, refuses cath and endo, DM, advanced age REHAB PLAN: The patient is being admitted to our comprehensive inpatient rehabilitation facility and can tolerate the intensity of service consisting of at least: 180 minutes of therapy a day, 5 out of 7 days a week Rehab treatment will consist of: PT OT will focus on regaining enough strength and function in order to return home to live independently and fall risk prevention education The patient/family has a good understanding of our discharge process and will benefit from an interdisciplinary inpatient rehabilitation program. The patient has potential to make improvement and is in need of at least two of the following multidisciplinary therapies including but not limited to physical, occupational, speech, and prosthetics and orthotics. Additionally the patient will need services from respiratory, nutritional services, wound care, psychology, etc. (Customize this to each patient). Given the patients complex condition and risk of further medical complications, rehabilitation services cannot be safely or effectively provided at a lower level of care such as a residential facility. BARRIERS TO DISCHARGE: Lives alone advanced age ESTIMATED LOS: 9 days DISPOSITION: Home RELEVANT CHANGES SINCE PREADMISSION SCREENING: I have compared the patients medical and functional status at the time of the p readmission screening and there are: no changes PROGNOSIS: Good REHABILITATION GOALS: 1. PT OT will focus on regaining enough strength and function in order to return home to live independently and fall risk prevention education All the above goals were reviewed with the patient and he/she is in agreement. By signing this document, I acknowledge that I have personally performed a full physical examination on this patient within 24 hours of admission to this inpatient rehabilitation facility and have determined the patient to be able to tolerate the above course of treatment at an intensive level for a reasonable period of time. I will be completing a detailed individualized Plan of Care for this patient by day #4 of the patients stay based upon the Preadmission Screen, the Post-Admission Evaluation, and the therapy evaluations. Admission Dx/Comorbidities: (1) Respiratory distress ICD Codes: R06.03 - Acute respiratory distress (2) CAD (coronary artery disease) ICD Codes: I25.10 - Atherosclerotic heart disease of [place] coronary artery without angina pectoris (3) Diabetes ICD Codes: E11.9 - Type 2 diabetes mellitus without complications (4) Arthritis ICD Codes: M19.90 - Unspecified osteoarthritis, unspecified site (5) Hypercapnia ICD Codes: R06.89 - Other abnormalities of breathing (6) Hyperlipidemia ICD Codes: E78.5 - Hyperlipidemia, unspecified (7) Hypertension ICD Codes: I10 - Essential (primary) hypertension (8) BiPAP (biphasic positive airway pressure) dependence ICD Codes: Z99.89 - Dependence on other enabling machines and devices (9) Type 2 AMI (acute myocardial infarction) ICD Codes: I21.A1 - Myocardial infarction type 2 (10) Atrial fibrillation with rapid ventricular response ICD Codes: I48.91 - Unspecified atrial fibrillation (11) Hx of CABG ICD Codes: Z95.1 - Presence of aortocoronary bypass graft (12) Acute heart failure Status: Acute ICD Codes: I50.9 - Heart failure, unspecified (13) Melena ICD Codes: K92.1 - Melena (14) Anemia, iron deficiency ICD Codes: D50.9 - Iron deficiency anemia, unspecified Assessment/Plan Assessment and Plan Assess & Plan/Chief Complaint Assessment: Debility/myopathy from critical illness s/p acute exacerbation of congestive heart failure new onset New onset PAF CAD previous bypass DM HTN Severe arthritis Melena requiring DC Lovenox and ASA Plan: Appreciate cardiology Wean oxygen Diuresis Home meds COVID swab negative IRF protocol KEILA MARTINEZ DO Sep 25, 2019 10:05
--- NOTE | 2019-09-25 10:32 | Physical Therapy Evaluation ---
PT Evaluation-General Medical Diagnosis Admission Date Sep 25, 2019 at 09:28 Medical Diagnosis: acute heart failure Onset Date: Sep 18, 2019 Therapy Diagnosis Therapy Diagnosis: impaired mobility, strength, endurance Precautions Precautions/Isolations: Fall Prevention, Standard Precautions Referral Physician: Telma Yung DO Reason for Referral: Evaluation/Treatment Medical History Pertinent Medical History: CABG, CAD, DM, HTN, [place], OA Reviewed History: Yes Social History Home: Single Level Current Living Status: Alone Entry Into Home: Stairs With Railing PT Steps Into Home: 3 Prior Prior Level of Function SCALE: Activities may be completed with or without assistive devices. 6-Chbwlmgsde-ezqiaxe completes the activity by him/herself with no assistance from a helper. 5-Set-up or Clean-up Assistance-helper sets up or cleans up; patient completes activity. Beverly assists only prior to or following the activity. 4-Supervision or Touching Assistance-helper provides verbal cues and/or touching/steadying and/or contact guard assistance as patient completes activity. Assistance may be provided throughout the activity or intermittently. 3-Partial/Moderate Assistance-helper does LESS THAN HALF the effort. Beverly lifts, holds or supports trunk or limbs, but provides less than half the effort. 2-Substantial/Maximal Assistance-helper does MORE THAN HALF the effort. Beverly lifts or holds trunk or limbs and provides more than half the effort. 7-Ubedgoaya-ncyavz does ALL the effort. Patient does none of the effort to complete the activity. Or, the assistance of 2 or more helpers is required for the patient to complete the activity. If activity was not attempted, code reason: 7-Patient Refused. 9-Not Applicable-not attempted and the patient did not perform the activity before the current illness, exacerbation or injury. 10-Not Attempted due to Environmental Limitations-(lack of equipment, weather restraints, etc.). 88-Not Attempted due to Medical Conditions or Safety Concerns. Bed Mobility: 6 Transfers (B,C,W/C): 6 Gait: 6 Indoor Mobility (Ambulation): Independent Prior Devices Use: Walker PT Evaluation-Current Subjective Patient in WC pre tx, OT has already been working with her, PT will perform evaluation and then co-treat with OT due to poor patient mobility, strength, endurance, fatigue with activity, the need to coordinate UE and LE during activity, reduce the risk of falls. Pt/Family Goals to be independent at home. Objective Patient Orientation: Person, Place, Situation Attachments: Oxygen, Renae Catheter ROM/Strength ROM Lower Extremities WNL Strength Lower Extremities RLE (hip flexion 3+/5, knee flexion 4/5, knee extension 4/5, dorsiflexion 5/5), LLE (hip flexion 3/5, knee flexion 4-/5, knee extension 4-/5, dorsiflexion 5/5) Sensory Vision: Wears Glasses Hearing: Functional Sensation Right Lower Extremit: Intact Sensation Left Lower Extremity: Intact Transfers Roll Left to Right (QC): 4 Sit to Lying (QC): 4 Lying to Sitting/Side of Bed(Q: 4 Sit to Stand (QC): 4 Chair/Nyi-yv-Toazm Xfer(QC): 4 Toilet Transfer (QC): 4 Car Transfer (QC): 4 Patient performs bed mobility and supine <-> sit with SBA, sit <-> stand SBA, transfers SBA, car transfer SBA. Patient needs occasional cues for safety and positioning and hand placement when standing. Gait Does the Patient Walk?: Yes Mode of Locomotion: Walk Walk 10 feet (QC): 4 Walk 50 ft with 2 Turns(QC): 4 Walk 150 ft (QC): 88 Walking 10ft/uneven surface-QC: 4 Distance: 120', 60'x2 Gait Assistive Device: FWW Comments/Gait Description Patient can ambulate 120' with a rolling walker with SBA (including 50' with at least 2 turns of 90 degrees but needs CGA when ambulating 10' over an uneven surface). Patient ambulates slowly, needs rest breaks between bouts of ambulation. Wheelchair Training Does the Pt Use a Wheelchair?: No Wheel 50 ft with 2 turns (QC): 9 Wheel 150 ft (QC): 9 Stairs #of Steps: 1 1 Step (curb) (QC): 4 4 Steps (QC): 88 12 Steps (QC): 88 Walking Assistive Device: Walker Patient can go up and down 1 step using a rolling walker with CGA, cues for foot placement and safety. Balance Sitting Static: Normal Sitting Dynamic: Normal Standing Static: Good Standing Dynamic: Good Picking up an Object (QC): 88 Treatment bathing, dressing, grooming. PT performed bed mobility and transfers, ambulation, stair training, assist with positioning and safety during bathing and dressing, OT performed bathing, dressing, grooming, UE positioning and safety during activity. Assessment/Needs Patient has impaired mobility, strength, endurance. She needs frequent rest breaks due to fatigue. Rehab Potential: Fair PT Short Term Goals Short Term Goals Time Frame: Oct 02, 2019 Roll Left & Right: 5 Sit to lyin Lying to sitting on side of be: 5 Sit to stand: 5 Chair/eel-au-bojrm transfer: 5 Walk 10 feet: 4 Walk 50 feet with two turns: 4 Walk 150 feet: 4 PT Agency Sales Development Associate Goals Agency Sales Development Associate Goals PT Mcc Goals Time Frame: Oct 16, 2019 Roll Left & Right (QC): 6 Sit to Lying (QC): 6 Lying-Sitting on Side/Bed(QC): 6 Sit to Stand (QC): 6 Chair/Ctv-gt-Wmnxy Xfer(QC): 6 Toilet Transfer (QC): 6 Car Transfer (QC): 6 Does the Patient Walk: Yes Walk 10 feet (QC): 6 Walk 50ft with 2 Turns (QC): 6 Walk 150 ft (QC): 6 Walking 10ft on Uneven Surface: 6 1 Step (curb) (QC): 4 4 Steps (QC): 4 12 Steps (QC): 88 Picking up an Object (QC): 88 Does the Pt use WC or Scooter?: No Wheel 50 feet with 2 turns (QC: 9 Wheel 150 feet: 9 PT Plan Problem List Problem List: Activity Tolerance, Functional Strength, Safety, Balance, Gait, Transfer, Bed Mobility, ROM Treatment/Plan Treatment Plan: Continue Plan of Care Treatment Plan: Bed Mobility, Education, Functional Activity Chip, Functional Strength, Group Therapy, Gait, Safety, Therapeutic Exercise, Transfers Treatment Duration: Oct 16, 2019 Frequency: At least 5 of 7 days/Wk (IRF) Estimated Hrs Per Day: 1.5 hours per day Patient and/or Family Agrees t: Yes Safety Risks/Education Patient Education: Gait Training, Transfer Techniques, Steps, Correct Positioning, Safety Issues Teaching Recipient: Patient Teaching Methods: Demonstration, Discussion Response to Teaching: Reinforcement Needed Discharge Recommendations Plan Patient will perform bed mobility and transfer training, balance and endurance training, functional strengthening, stair training, gait training, and education, to improve functional mobility and independence at home. Therapy Discharge Recommendati: Home & Family Time/GCodes Time In: 0915 Time Out: 1015 Total Billed Treatment Time: 60 Total Billed Treatment 1 visit EVM 10' FA 50' PT eval from , co-treat with OT from [id number] ISABEL TAMAYO PT Sep 25, 2019 10:32
--- OUTSIDE RECORDS SUMMARY | 2019-09-25 10:39 | XMS REPORT | Continuity of Care Document ---
Author Organization Unknown Address Unknown Phone Unavailable Allergies Active Description Code Type Severity Reaction Onset Reported/Identified Relationship to Patient Clinical Status Yes Penicillins [id number] Drug Aller gy Mild N/A 12/18/2008 Medications There is no data. Problems Date Dx Coded Attending Type Code Diagnosis Diagnosed By 09/22/2019 MARTINEZ DO, KEILA Ot I11.0 HYPERTENSIVE HEART DISEASE WITH HEART FA 09/22/2019 MARTINEZ DO, KEILA Ot I50.21 ACUTE SYSTOLIC (CONGESTIVE) HEART FAILUR 09/22/2019 MARTINEZ DO, KEILA Ot E11.9 TYPE 2 DIABETES MELLITUS WITHOUT COMPLIC 09/22/2019 MARTINEZ DO, KEILA Ot E66.9 OBESITY, UNSPECIFIED 09/22/2019 MARTINEZ DO, KEILA Ot E78.5 HYPERLIPIDEMIA, UNSPECIFIED 09/22/2019 MARTINEZ DO, KEILA Ot I11.0 HYPERTENSIVE HEART DISEASE WITH HEART FA 09/22/2019 MARTINEZ DO, KEILA Ot I21.A1 MYOCARDIAL INFARCTION TYPE 2 09/22/2019 MARTINEZ DO, KEILA Ot I25.10 ATHSCL HEART DISEASE OF [place] CORONARY 09/22/2019 MARTINEZ DO, KEILA Ot I48.91 UNSPECIFIED ATRIAL FIBRILLATION 09/22/2019 MARTINEZ DO, KEILA Ot I50.21 ACUTE SYSTOLIC (CONGESTIVE) HEART FAILUR 09/22/2019 MARTINEZ DO, KEILA Ot J45.90 9 UNSPECIFIED ASTHMA, UNCOMPLICATED 09/22/2019 MARTINEZ DO, KEILA Ot J96.00 ACUTE RESPIRATORY FAILURE, UNSP W HYPOXI 09/22/2019 MARTINEZ DO, KEILA Ot K29.70 GASTRITIS, UNSPECIFIED, WITHOUT BLEEDING 09/22/2019 MARTINEZ DO, KEILA Ot K59.00 CONSTIPATION, UNSPECIFIED 09/22/2019 MARTINEZ DO, KEILA Ot M19.91 PRIMARY OSTEOARTHRITIS, UNSPECIFIED SITE 09/22/2019 MARTINEZ DO, KEILA Ot M79.10 MYALGIA, UNSPECIFIED SITE 09/22/2019 MARTINEZ DO, KEILA Ot R09.81 NASAL CONGESTION 09/22/2019 MARTINEZ DO, KEILA Ot R51 HEADACHE 09/22/2019 MARTINEZ DO, KEILA Ot Z20.82 8 CONTACT W AND EXPOSURE TO OT VIRAL COMM 09/22/2019 MARTINEZ DO, KEILA Ot Z68.33 BODY MASS INDEX (BMI) 33.0-33.9, ADULT 09/22/2019 MARTINEZ DO, KEILA Ot Z85.43 PERSONAL HISTORY OF MALIGNANT NEOPLASM O 09/22/2019 MARTINEZ DO, KEILA Ot Z90.71 0 ACQUIRED ABSENCE OF BOTH CERVIX AND UTER 09/22/2019 MARTINEZ DO, KEILA Ot Z91.19 PATIENT'S NONCOMPLIANCE W OTH MEDICAL TR 09/22/2019 MARTINEZ DO, KEILA Ot Z95.1 PRESENCE OF AORTOCORONARY BYPASS GRAFT 09/23/2019 MARTINEZ DO, KEILA Ot E11.9 TYPE 2 DIABETES MELLITUS WITHOUT COMPLIC 09/23/2019 MARTINEZ DO, KEILA Ot E66.9 OBESITY, UNSPECIFIED 09/23/2019 MARTINEZ DO, KEILA Ot E78.5 HYPERLIPIDEMIA, UNSPECIFIED 09/23/2019 MARTINEZ DO, KEILA Ot I11.0 HYPERTENSIVE HEART DISEASE WITH HEART FA 09/23/2019 MARTINEZ DO, KEILA Ot I21.A1 MYOCARDIAL INFARCTION TYPE 2 09/23/2019 MARTINEZ DO, KEILA Ot I25.10 ATHSCL HEART DISEASE OF [place] CORONARY 09/23/2019 MARTINEZ DO, KEILA Ot I48.91 UNSPECIFIED ATRIAL FIBRILLATION 09/23/2019 MARTINEZ DO, KEILA Ot I50.21 ACUTE SYSTOLIC (CONGESTIVE) HEART FAILUR 09/23/2019 MARTINEZ DO, KEILA Ot J45.90 9 UNSPECIFIED ASTHMA, UNCOMPLICATED 09/23/2019 MARTINEZ DO, KEILA Ot J96.00 ACUTE RESPIRATORY FAILURE, UNSP W HYPOXI 09/23/2019 MARTINEZ DO, KEILA Ot K29.70 GASTRITIS, UNSPECIFIED, WITHOUT BLEEDING 09/23/2019 MARTINEZ DO, KEILA Ot K59.00 CONSTIPATION, UNSPECIFIED 09/23/2019 MARTINEZ DO, KEILA Ot M19.91 PRIMARY OSTEOARTHRITIS, UNSPECIFIED SITE 09/23/2019 MARTINEZ DO, KEILA Ot M79.10 MYALGIA, UNSPECIFIED SITE 09/23/2019 MARTINEZ DO, KEILA Ot R09.81 NASAL CONGESTION 09/23/2019 MARTINEZ DO, KEILA Ot R51 HEADACHE 09/23/2019 MARTINEZ DO, KEILA Ot Z20.82 8 CONTACT W AND EXPOSURE TO OT VIRAL COMM 09/23/2019 MARTINEZ DO, KEILA Ot Z68.33 BODY MASS INDEX (BMI) 33.0-33.9, ADULT 09/23/2019 MARTINEZ DO, KEILA Ot Z85.43 PERSONAL HISTORY OF MALIGNANT NEOPLASM O 09/23/2019 MARTINEZ DO, KEILA Ot Z90.71 0 ACQUIRED ABSENCE OF BOTH CERVIX AND UTER 09/23/2019 MARTINEZ DO, KEILA Ot Z91.19 PATIENT'S NONCOMPLIANCE W OT MEDICAL TR 09/23/2019 MARTINEZ DO, KEILA Ot Z95.1 PRESENCE OF AORTOCORONARY BYPASS GRAFT 09/23/2019 MARTINEZ DO, KEILA Ot E11.9 TYPE 2 DIABETES MELLITUS WITHOUT COMPLIC 09/23/2019 MARTINEZ DO, KEILA Ot E66.9 OBESITY, UNSPECIFIED 09/23/2019 MARTINEZ DO, KEILA Ot E78.5 HYPERLIPIDEMIA, UNSPECIFIED 09/23/2019 MARTINEZ DO, KEILA Ot 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 HYPERTENSIVE HEART DISEASE WITH HEART FA 09/23/2019 MARTINEZ DO, KEILA Ot I21.A1 MYOCARDIAL INFARCTION TYPE 2 09/23/2019 MARTINEZ DO, KEILA Ot I25.10 ATHSCL HEART DISEASE OF [place] CORONARY 09/23/2019 MARTINEZ DO, KEILA Ot I48.91 UNSPECIFIED ATRIAL FIBRILLATION 09/23/2019 MARTINEZ DO, KEILA Ot I50.21 ACUTE SYSTOLIC (CONGESTIVE) HEART FAILUR 09/23/2019 MARTINEZ DO, KELIA Ot J45.90 9 UNSPECIFIED ASTHMA, UNCOMPLICATED 09/23/2019 MARTINEZ DO, KEILA Ot J96.00 ACUTE RESPIRATORY FAILURE, UNSP W HYPOXI 09/23/2019 MARTINEZ DO, KEILA Ot K29.70 GASTRITIS, UNSPECIFIED, WITHOUT BLEEDING 09/23/2019 MARTINEZ DO, KEILA Ot K59.00 CONSTIPATION, UNSPECIFIED 09/23/2019 MARTINEZ DO, KEILA Ot M19.91 PRIMARY OSTEOARTHRITIS, UNSPECIFIED SITE 09/23/2019 MARTINEZ DO, KEILA Ot M79.10 MYALGIA, UNSPECIFIED SITE 09/23/2019 MARTINEZ DO, KEILA Ot R51 HEADACHE 09/23/2019 MARTINEZ DO, KEILA Ot Z20.82 8 CONTACT W AND EXPOSURE TO OTH VIRAL COMM 09/23/2019 MARTINEZ DO, KEILA Ot Z68.33 BODY MASS INDEX (BMI) 33.0-33.9, ADULT 09/23/2019 MARTINEZ DO, KEILA Ot Z85.43 PERSONAL HISTORY OF MALIGNANT NEOPLASM O 09/23/2019 MARTINEZ DO, KEILA Ot Z90.71 0 ACQUIRED ABSENCE OF BOTH CERVIX AND UTER 09/23/2019 MARTINEZ DO, KEILA Ot Z91.19 PATIENT'S NONCOMPLIANCE W OT MEDICAL TR 09/23/2019 MARTINEZ DO, KEILA Ot Z95.1 PRESENCE OF AORTOCORONARY BYPASS GRAFT 09/23/2019 MARTINEZ DO, KEILA Ot E11.9 TYPE 2 DIABETES MELLITUS WITHOUT COMPLIC 09/23/2019 MARTINEZ DO, KEILA Ot E66.9 OBESITY, UNSPECIFIED 09/23/2019 MARTINEZ DO, KEILA Ot E78.5 HYPERLIPIDEMIA, UNSPECIFIED 09/23/2019 MARTINEZ DO, KEILA Ot 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 HYPERTENSIVE HEART DISEASE WITH HEART FA 09/23/2019 MARTINEZ DO, KEILA Ot I21.A1 MYOCARDIAL INFARCTION TYPE 2 09/23/2019 MARTINEZ DO, KEILA Ot I25.10 ATHSCL HEART DISEASE OF [place] CORONARY 09/23/2019 MARTINEZ DO, KEILA Ot I48.91 UNSPECIFIED ATRIAL FIBRILLATION 09/23/2019 MARTINEZ DO, KEILA Ot I50.21 ACUTE SYSTOLIC (CONGESTIVE) HEART FAILUR 09/23/2019 MARTINEZ DO, KEILA Ot J45.90 9 UNSPECIFIED ASTHMA, UNCOMPLICATED 09/23/2019 MARTINEZ DO, KEILA Ot J96.00 ACUTE RESPIRATORY FAILURE, UNSP W HYPOXI 09/23/2019 MARTINEZ DO, KEILA Ot K29.70 GASTRITIS, UNSPECIFIED, WITHOUT BLEEDING 09/23/2019 MARTINEZ DO, KEILA Ot K59.00 CONSTIPATION, UNSPECIFIED 09/23/2019 MARTINEZ DO, KEILA Ot M19.91 PRIMARY OSTEOARTHRITIS, UNSPECIFIED SITE 09/23/2019 MARTINEZ DO, KEILA Ot M79.10 MYALGIA, UNSPECIFIED SITE 09/23/2019 MARTINEZ DO, KEILA Ot R51 HEADACHE 09/23/2019 MARTINEZ DO, KEILA Ot Z20.82 8 CONTACT W AND EXPOSURE TO OTH VIRAL COMM 09/23/2019 MARTINEZ DO, KEILA Ot Z68.33 BODY MASS INDEX (BMI) 33.0-33.9, ADULT 09/23/2019 KEILA MARTINEZ DO Ot Z85.43 PERSONAL HISTORY OF MALIGNANT NEOPLASM O 09/23/2019 KEILA MARTINEZ DO Ot Z90.71 0 ACQUIRED ABSENCE OF BOTH CERVIX AND UTER 09/23/2019 KEILA MARTINEZ DO Ot Z91.19 PATIENT'S NONCOMPLIANCE W OTH MEDICAL TR 09/23/2019 KEILA MARTINEZ DO Ot Z95.1 PRESENCE OF AORTOCORONARY BYPASS GRAFT Procedures There is no data. Results Test [...] protein measurement (mass/v olume) 0.97 mg/dL 0.00-0.50 COVID-19 IgG Only SO - 09/18/19 09:08 Coronavirus Ab [Units/volume] in Serum Negative Negative Bacterial blood culture - 09/18/19 09:08 Bacterial blood culture NG NRG Bacterial blood culture - 09/18/19 09:13 Bacterial blood culture NG NRG Complete urinalysis with reflex to cultu re [...] with reflex to culture CULTURE PENDING NRG Coronavirus SARS-CoV-2 SO 2018 - 0 09:24 Coronavirus Ab [Units/volume] in Serum Negative Negative Bacterial urine culture - 09/18/19 09:24 Bacterial urine culture 3 OR MORE NRG COLONY COUNT 20,000 CFU/ML NRG SUSCEPTIBILITY GRAM POSITIVE ISOLATES; SUGGESTING NRG MRSA SCREEN PROBABLE COLLECTION CONTAMINATION WITH NRG RAPID ID SKIN ANT. NO SUSCEPTIBILITY PERFORMED. NRG Arterial blood gas measurement - 0 [...] G Measurement of body temperature 36 NRG Automated blood complete blood count (he mogram) panel - 09/19/19 03:17 Blood leukocytes automated count (number/volume) 4.2 10*3/uL 4.3-11.0 Blood erythrocytes automated count (number/volume) 4.27 10*6/uL 4.35-5.85 Venous blood hemoglobin measurement (mass/volume) 12.5 g/dL 11.5-16.0 Blood hematocrit (volume fraction) 40 % 35-52 Automated erythrocyte mean corpuscular volume 93 [ foz_us] 80-99 Automated erythrocyte mean corpuscular h emoglobin (mass per erythrocyte) 29 pg 25-34 Automated erythrocyte mean corpuscular h emoglobin concentration measurement (mass/volume) 32 g/dL 32-36 Automated erythrocyte distribution width ratio 14. 4 % 10.0- 14.5 Automated blood platelet count (count/volume) 55 1 0*3/uL 130-400 Automated blood platelet mean volume measurement 10.3 [foz_us] 7.4-10.4 Comprehensive metabolic panel - 09/19/19 03:17 Serum or plasma sodium measurement (moles/volume) 138 mmol/L 135-145 Serum or plasma potassium measurement (moles/volume) 4.9 mmol/L 3.6-5.0 Serum or plasma chloride measurement (moles/volume) 101 mmol/L 98-107 Carbon dioxide 21 mmol/L 21-32 Serum or plasma anion gap determination (moles/volume) 16 mmol/L 5-14 Serum or plasma urea nitrogen measurement (mass/volume ) 21 mg/dL 7-18 Serum or plasma creatinine measurement (mass/volume) 0.93 mg/dL 0.60-1.30 Serum or plasma urea nitrogen/creatinine mass ratio 23 NRG Serum or plasma creatinine measurement w ith calculation of estimated glomerular filtration rate 57 NRG Serum or plasma glucose measurement (mass/volume) 112 mg/dL 70-105 Serum or plasma calcium measurement (mass/volume) 8.6 mg/dL 8.5-10.1 Serum or plasma total bilirubin measurement (mass/volu me) 0.3 mg/dL 0.1-1.0 Serum or plasma alkaline phosphatase john surement (enzymatic activity/volume) 67 U/L 40-136 Serum or plasma aspartate aminotransfera se measurement (enzymatic activity/volume) 21 U/L 5-34 Serum or plasma alanine aminotransferase measurement (enzymatic activity/volume) 20 U/L 0-55 Serum or plasma protein measurement (mass/volume) 5.8 g/dL 6.4-8.2 Serum or plasma albumin measurement (mass/volume) 3.5 g/dL 3.2-4.5 CALCIUM CORRECTED 9.0 mg/dL 8.5-10.1 Serum or plasma phosphate measurement (m ass/volume) - 09/19/19 03:17 Serum or plasma phosphate measurement (mass/volume) 3.9 mg/dL 2.3-4.7 Magnesium - 09/19/19 03:17 Magnesium 2.0 mg/dL 1.6-2.4 Serum or plasma troponin i.cardiac measu rement (mass/volume) - 09/19/19 03:17 Serum or plasma troponin i.cardiac measurement (mass/v olume) 0.589 ng/mL <0.028 Lipid 1996 panel - 09/19/19 03:17 Serum or plasma triglyceride measurement (mass/volume) 86 mg/dL <150 Serum or plasma cholesterol measurement (mass/volume) 94 mg/dL < 200 Serum or plasma cholesterol in HDL measurement (mass/v olume) 36 mg/dL 40-60 Cholesterol in LDL [mass/volume] in serum or plasma by direct assay 45 mg/dL 1-129 Serum or plasma cholesterol in VLDL measurement (mass/ volume) 17 mg/dL 5-40 THYROID STIMULATING HORMONE - 09/19/19 0 3:17 THYROID STIMULATING HORMONE 4.61 u[iU]/mL 0.35-4.94 Automated blood platelet count (count/vo lume) - 09/19/19 12:12 Automated blood platelet count (count/volume) 305 10*3/uL 130-400 Methicillin resistant Staphylococcus aur eus (MRSA) screening culture - 09/20/19 05:30 Methicillin resistant Staphylococcus aureus (MRSA) scr eening culture NEG NRG Capillary blood glucose measurement by g lucometer (mass/volume) - 09/20/19 05:46 Capillary blood glucose measurement by glucometer (mas s/volume) 215 mg/dL 70-110 Complete blood count (CBC) with automate d white blood cell (WBC) differential - 09/20/19 07:40 Blood leukocytes automated count (number/volume) 8.4 10*3/uL 4.3-11.0 Blood erythrocytes automated count (number/volume) 3.49 10*6/uL 4.35-5.85 Venous blood hemoglobin measurement (mass/volume) 10.2 g/dL 11.5-16.0 Blood hematocrit (volume fraction) 32 % 35-52 Automated erythrocyte mean corpuscular volume 91 [ foz_us] 80-99 Automated erythrocyte mean corpuscular h emoglobin (mass per erythrocyte) 29 pg 25-34 Automated erythrocyte mean corpuscular h emoglobin concentration measurement (mass/volume) 32 g/dL 32-36 Automated erythrocyte distribution width ratio 13. 5 % 10.0- 14.5 Automated blood platelet count (count/volume) 275 10*3/uL 130-400 Automated blood platelet mean volume measurement 9.4 [foz_us] 7.4-10.4 Automated blood neutrophils/100 leukocytes 64 % 42-75 Automated blood lymphocytes/100 leukocytes 25 % 12-44 Blood monocytes/100 leukocytes 9 % 0-12 Automated blood eosinophils/100 leukocytes 1 % 0-10 Automated blood basophils/100 leukocytes 0 % 0-10 Blood neutrophils automated count (number/volume) 5.4 10*3 1.8-7.8 Blood lymphocytes automated count (number/volume) 2.1 10*3 1.0-4.0 Blood monocytes automated count (number/volume) 0. 8 10*3 0.0-1.0 Automated eosinophil count 0.1 10*3/uL 0 .0-0.3 Automated blood basophil count (count/volume) 0.0 10*3/uL 0.0-0.1 Comprehensive metabolic panel - 09/20/19 07:40 Serum or plasma sodium measurement (moles/volume) 141 mmol/L 135-145 Serum or plasma potassium measurement (moles/volume) 3.8 mmol/L 3.6-5.0 Serum or plasma chloride measurement (moles/volume) 96 mmol/L 98-107 Carbon dioxide 33 mmol/L 21-32 Serum or plasma anion gap determination (moles/volume) 12 mmol/L 5-14 Serum or plasma urea nitrogen measurement (mass/volume ) 77 mg/dL 7-18 Serum or plasma creatinine measurement (mass/volume) 1.29 mg/dL 0.60-1.30 Serum or plasma urea nitrogen/creatinine mass ratio 60 NRG Serum or plasma creatinine measurement w ith calculation of estimated glomerular filtration rate 39 NRG Serum or plasma glucose measurement (mass/volume) 184 mg/dL 70-105 Serum or plasma calcium measurement (mass/volume) 8.5 mg/dL 8.5-10.1 Serum or plasma total bilirubin measurement (mass/volu me) 0.4 mg/dL 0.1-1.0 Serum or plasma alkaline phosphatase john surement (enzymatic activity/volume) 37 U/L 40-136 Serum or plasma aspartate aminotransfera se measurement (enzymatic activity/volume) 12 U/L 5-34 Serum or plasma alanine aminotransferase measurement (enzymatic activity/volume) 13 U/L 0-55 Serum or plasma protein measurement (mass/volume) 5.9 g/dL 6.4-8.2 Serum or plasma albumin measurement (mass/volume) 3.3 g/dL 3.2-4.5 CALCIUM CORRECTED 9.1 mg/dL 8.5-10.1 Serum or plasma troponin i.cardiac measu rement (mass/volume) - 09/20/19 07:40 Serum or plasma troponin i.cardiac measurement (mass/v olume) 0.037 ng/mL <0.028 Complete blood count (CBC) with automate d white blood cell (WBC) differential - 09/21/19 03:07 Blood leukocytes automated count (number/volume) 6.9 10*3/uL 4.3-11.0 Blood erythrocytes automated count (number/volume) 3.17 10*6/uL 4.35-5.85 Venous blood hemoglobin measurement (mass/volume) 9.0 g/dL 11.5-16.0 Blood hematocrit (volume fraction) 29 % 35-52 Automated erythrocyte mean corpuscular volume 91 [ foz_us] 80-99 Automated erythrocyte mean corpuscular h emoglobin (mass per erythrocyte) 28 pg 25-34 Automated erythrocyte mean corpuscular h emoglobin concentration measurement (mass/volume) 31 g/dL 32-36 Automated erythrocyte distribution width ratio 14. 0 % 10.0- 14.5 Automated blood platelet count (count/volume) 259 10*3/uL 130-400 Automated blood platelet mean volume measurement 9.7 [foz_us] 7.4-10.4 Automated blood neutrophils/100 leukocytes 55 % 42-75 Automated blood lymphocytes/100 leukocytes 32 % 12-44 Blood monocytes/100 leukocytes 10 % 0-12 Automated blood eosinophils/100 leukocytes 2 % 0-10 Automated blood basophils/100 leukocytes 0 % 0-10 Blood neutrophils automated count (number/volume) 3.8 10*3 1.8-7.8 Blood lymphocytes automated count (number/volume) 2.2 10*3 1.0-4.0 Blood monocytes automated count (number/volume) 0. 7 10*3 0.0-1.0 Automated eosinophil count 0.2 10*3/uL 0 .0-0.3 Automated blood basophil count (count/volume) 0.0 10*3/uL 0.0-0.1 Whole blood basic metabolic panel - 09/08 05/28 03:07 Serum or plasma sodium measurement (moles/volume) 144 mmol/L 135-145 Serum or plasma potassium measurement (moles/volume) 3.3 mmol/L 3.6-5.0 Serum or plasma chloride measurement (moles/volume) 98 mmol/L 98-107 Carbon dioxide 32 mmol/L 21-32 Serum or plasma anion gap determination (moles/volume) 14 mmol/L 5-14 Serum or plasma urea nitrogen measurement (mass/volume ) 85 mg/dL 7-18 Serum or plasma creatinine measurement (mass/volume) 1.73 mg/dL 0.60-1.30 Serum or plasma urea nitrogen/creatinine mass ratio 49 NRG Serum or plasma creatinine measurement w ith calculation of estimated glomerular filtration rate 28 NRG Serum or plasma glucose measurement (mass/volume) 94 mg/dL 70-105 Serum or plasma calcium measurement (mass/volume) 8.3 mg/dL 8.5-10.1 Serum or plasma phosphate measurement (m ass/volume) - 09/21/19 03:07 Serum or plasma phosphate measurement (mass/volume) 4.0 mg/dL 2.3-4.7 Magnesium - 09/21/19 03:07 Magnesium 1.9 mg/dL 1.6-2.4 Serum or plasma lithium measurement (mol es/volume) - 09/21/19 03:07 BNP PT 57.7 pg/mL <100.0 PROCALCITONIN (PCT) - 09/21/19 03:07 PROCALCITONIN (PCT) 0.32 ng/mL <0.10 Complete blood count (CBC) with automate d white blood cell (WBC) differential - 09/22/19 05:12 Blood leukocytes automated count (number/volume) 5.8 10*3/uL 4.3-11.0 Blood erythrocytes automated count (number/volume) 2.81 10*6/uL 4.35-5.85 Venous blood hemoglobin measurement (mass/volume) 8.1 g/dL 11.5-16.0 Blood hematocrit (volume fraction) 26 % 35-52 Automated erythrocyte mean corpuscular volume 93 [ foz_us] 80-99 Automated erythrocyte mean corpuscular h emoglobin (mass per erythrocyte) 29 pg 25-34 Automated erythrocyte mean corpuscular h emoglobin concentration measurement (mass/volume) 31 g/dL 32-36 Automated erythrocyte distribution width ratio 13. 6 % 10.0- 14.5 Automated blood platelet count (count/volume) 219 10*3/uL 130-400 Automated blood platelet mean volume measurement 10.1 [foz_us] 7.4-10.4 Automated blood neutrophils/100 leukocytes 55 % 42-75 Automated blood lymphocytes/100 leukocytes 31 % 12-44 Blood monocytes/100 leukocytes 11 % 0-12 Automated blood eosinophils/100 leukocytes 3 % 0-10 Automated blood basophils/100 leukocytes 1 % 0-10 Blood neutrophils automated count (number/volume) 3.2 10*3 1.8-7.8 Blood lymphocytes automated count (number/volume) 1.8 10*3 1.0-4.0 Blood monocytes automated count (number/volume) 0. 6 10*3 0.0-1.0 Automated eosinophil count 0.2 10*3/uL 0 .0-0.3 Automated blood basophil count (count/volume) 0.0 10*3/uL 0.0-0.1 Whole blood basic metabolic panel - 09/08 06/28 05:12 Serum or plasma sodium measurement (moles/volume) 145 mmol/L 135-145 Serum or plasma potassium measurement (moles/volume) 3.9 mmol/L 3.6-5.0 Serum or plasma chloride measurement (moles/volume) 102 mmol/L 98-107 Carbon dioxide 31 mmol/L 21-32 Serum or plasma anion gap determination (moles/volume) 12 mmol/L 5-14 Serum or plasma urea nitrogen measurement (mass/volume ) 81 mg/dL 7-18 Serum or plasma creatinine measurement (mass/volume) 1.47 mg/dL 0.60-1.30 Serum or plasma urea nitrogen/creatinine mass ratio 55 NRG Serum or plasma creatinine measurement w ith calculation of estimated glomerular filtration rate 34 NRG Serum or plasma glucose measurement (mass/volume) 158 mg/dL 70-105 Serum or plasma calcium measurement (mass/volume) 8.3 mg/dL 8.5-10.1 Serum or plasma phosphate measurement (m ass/volume) - 09/22/19 05:12 Serum or plasma phosphate measurement (mass/volume) 3.5 mg/dL 2.3-4.7 Magnesium - 09/22/19 05:12 Magnesium 2.1 mg/dL 1.6-2.4 Complete blood count (CBC) with automate d white blood cell (WBC) differential - 09/23/19 02:13 Blood leukocytes automated count (number/volume) 5.6 10*3/uL 4.3-11.0 Blood erythrocytes automated count (number/volume) 2.83 10*6/uL 4.35-5.85 Venous blood hemoglobin measurement (mass/volume) 8.1 g/dL 11.5-16.0 Blood hematocrit (volume fraction) 26 % 35-52 Automated erythrocyte mean corpuscular volume 93 [ foz_us] 80-99 Automated erythrocyte mean corpuscular h emoglobin (mass per erythrocyte) 29 pg 25-34 Automated erythrocyte mean corpuscular h emoglobin concentration measurement (mass/volume) 31 g/dL 32-36 Automated erythrocyte distribution width ratio 13. 8 % 10.0- 14.5 Automated blood platelet count (count/volume) 244 10*3/uL 130-400 Automated blood platelet mean volume measurement 10.1 [foz_us] 7.4-10.4 Automated blood neutrophils/100 leukocytes 56 % 42-75 Automated blood lymphocytes/100 leukocytes 31 % 12-44 Blood monocytes/100 leukocytes 10 % 0-12 Automated blood eosinophils/100 leukocytes 3 % 0-10 Automated blood basophils/100 leukocytes 0 % 0-10 Blood neutrophils automated count (number/volume) 3.1 10*3 1.8-7.8 Blood lymphocytes automated count (number/volume) 1.7 10*3 1.0-4.0 Blood monocytes automated count (number/volume) 0. 6 10*3 0.0-1.0 Automated eosinophil count 0.2 10*3/uL 0 .0-0.3 Automated blood basophil count (count/volume) 0.0 10*3/uL 0.0-0.1 Whole blood basic metabolic panel - 09/08 07/28 02:13 Serum or plasma sodium measurement (moles/volume) 144 mmol/L 135-145 Serum or plasma potassium measurement (moles/volume) 3.8 mmol/L 3.6-5.0 Serum or plasma chloride measurement (moles/volume) 100 mmol/L 98-107 Carbon dioxide 32 mmol/L 21-32 Serum or plasma anion gap determination (moles/volume) 12 mmol/L 5-14 Serum or plasma urea nitrogen measurement (mass/volume ) 62 mg/dL 7-18 Serum or plasma creatinine measurement (mass/volume) 1.47 mg/dL 0.60-1.30 Serum or plasma urea nitrogen/creatinine mass ratio 42 NRG Serum or plasma creatinine measurement w ith calculation of estimated glomerular filtration rate 34 NRG Serum or plasma glucose measurement (mass/volume) 170 mg/dL 70-105 Serum or plasma calcium measurement (mass/volume) 8.3 mg/dL 8.5-10.1 Serum or plasma phosphate measurement (m ass/volume) - 09/23/19 02:13 Serum or plasma phosphate measurement (mass/volume) 4.1 mg/dL 2.3-4.7 Magnesium - 09/23/19 02:13 Magnesium 2.3 mg/dL 1.6-2.4 Capillary blood glucose measurement by g lucometer (mass/volume) - 09/23/19 10:08 Capillary blood glucose measurement by glucometer (mas s/volume) 223 mg/dL 70-110 Complete blood count (CBC) with automate d white blood cell (WBC) differential - 09/24/19 05:08 Blood leukocytes automated count (number/volume) 5.9 10*3/uL 4.3-11.0 Blood erythrocytes automated count (number/volume) 2.64 10*6/uL 4.35-5.85 Venous blood hemoglobin measurement (mass/volume) 7.6 g/dL 11.5-16.0 Blood hematocrit (volume fraction) 25 % 35-52 Automated erythrocyte mean corpuscular volume 93 [ foz_us] 80-99 Automated erythrocyte mean corpuscular h emoglobin (mass per erythrocyte) 29 pg 25-34 Automated erythrocyte mean corpuscular h emoglobin concentration measurement (mass/volume) 31 g/dL 32-36 Automated erythrocyte distribution width ratio 13. 4 % 10.0- 14.5 Automated blood platelet count (count/volume) 219 10*3/uL 130-400 Automated blood platelet mean volume measurement 10.0 [foz_us] 7.4-10.4 Automated blood neutrophils/100 leukocytes 58 % 42-75 Automated blood lymphocytes/100 leukocytes 29 % 12-44 Blood monocytes/100 leukocytes 10 % 0-12 Automated blood eosinophils/100 leukocytes 3 % 0-10 Automated blood basophils/100 leukocytes 0 % 0-10 Blood neutrophils automated count (number/volume) 3.4 10*3 1.8-7.8 Blood lymphocytes automated count (number/volume) 1.7 10*3 1.0-4.0 Blood monocytes automated count (number/volume) 0. 6 10*3 0.0-1.0 Automated eosinophil count 0.2 10*3/uL 0 .0-0.3 Automated blood basophil count (count/volume) 0.0 10*3/uL 0.0-0.1 Whole blood basic metabolic panel - 09/08 08/28 05:08 Serum or plasma sodium measurement (moles/volume) 144 mmol/L 135-145 Serum or plasma potassium measurement (moles/volume) 3.8 mmol/L 3.6-5.0 Serum or plasma chloride measurement (moles/volume) 102 mmol/L 98-107 Carbon dioxide 33 mmol/L 21-32 Serum or plasma anion gap determination (moles/volume) 9 mmol/L 5-14 Serum or plasma urea nitrogen measurement (mass/volume ) 44 mg/dL 7-18 Serum or plasma creatinine measurement (mass/volume) 1.16 mg/dL 0.60-1.30 Serum or plasma urea nitrogen/creatinine mass ratio 38 NRG Serum or plasma creatinine measurement w ith calculation of estimated glomerular filtration rate 45 NRG Serum or plasma glucose measurement (mass/volume) 137 mg/dL 70-105 Serum or plasma calcium measurement (mass/volume) 8.2 mg/dL 8.5-10.1 Serum or plasma phosphate measurement (m ass/volume) - 09/24/19 05:08 Serum or plasma phosphate measurement (mass/volume) 3.3 mg/dL 2.3-4.7 Magnesium - 09/24/19 05:08 Magnesium 2.5 mg/dL 1.6-2.4 IRON TEST - 09/24/19 05:08 Serum or plasma iron measurement (mass/volume) 24 % 35-180 Complete blood count (CBC) with automate d white blood cell (WBC) differential - 09/25/19 06:47 Blood leukocytes automated count (number/volume) 7.1 10*3/uL 4.3-11.0 Blood erythrocytes automated count (number/volume) 3.08 10*6/uL 4.35-5.85 Venous blood hemoglobin measurement (mass/volume) 8.9 g/dL 11.5-16.0 Blood hematocrit (volume fraction) 28 % 35-52 Automated erythrocyte mean corpuscular volume 92 [ foz_us] 80-99 Automated erythrocyte mean corpuscular h emoglobin (mass per erythrocyte) 29 pg 25-34 Automated erythrocyte mean corpuscular h emoglobin concentration measurement (mass/volume) 32 g/dL 32-36 Automated erythrocyte distribution width ratio 13. 6 % 10.0- 14.5 Automated blood platelet count (count/volume) 311 10*3/uL 130-400 Automated blood platelet mean volume measurement 9.3 [foz_us] 7.4-10.4 Automated blood neutrophils/100 leukocytes 60 % 42-75 Automated blood lymphocytes/100 leukocytes 25 % 12-44 Blood monocytes/100 leukocytes 11 % 0-12 Automated blood eosinophils/100 leukocytes 4 % 0-10 Automated blood basophils/100 leukocytes 0 % 0-10 Blood neutrophils automated count (number/volume) 4.3 10*3 1.8-7.8 Blood lymphocytes automated count (number/volume) 1.8 10*3 1.0-4.0 Blood monocytes automated count (number/volume) 0. 8 10*3 0.0-1.0 Automated eosinophil count 0.3 10*3/uL 0 .0-0.3 Automated blood basophil count (count/volume) 0.0 10*3/uL 0.0-0.1 Whole blood basic metabolic panel - 09/08 09/27 06:47 Serum or plasma sodium measurement (moles/volume) 143 mmol/L 135-145 Serum or plasma potassium measurement (moles/volume) 3.6 mmol/L 3.6-5.0 Serum or plasma chloride measurement (moles/volume) 99 mmol/L 98-107 Carbon dioxide 31 mmol/L 21-32 Serum or plasma anion gap determination (moles/volume) 13 mmol/L 5-14 Serum or plasma urea nitrogen measurement (mass/volume ) 41 mg/dL 7-18 Serum or plasma creatinine measurement (mass/volume) 1.26 mg/dL 0.60-1.30 Serum or plasma urea nitrogen/creatinine mass ratio 33 NRG Serum or plasma creatinine measurement w ith calculation of estimated glomerular filtration rate 40 NRG Serum or plasma glucose measurement (mass/volume) 159 mg/dL 70-105 Serum or plasma calcium measurement (mass/volume) 9.0 mg/dL 8.5-10.1 Serum or plasma phosphate measurement (m ass/volume) - 09/25/19 06:47 Serum or plasma phosphate measurement (mass/volume) 3.3 mg/dL 2.3-4.7 Magnesium - 09/25/19 06:47 Magnesium 2.3 mg/dL 1.6-2.4 Encounters ACCT No. Visit Date/Time Discharge Status Pt. Type Provider Facility Loc./Unit Complaint [id number] 07/07/2012 10:30:00 013 23:59:59 CLS Outpatient [id number] 09/18/2019 10:56:[address] Inpatient KEILA MARTINEZ DO [facility] 4TH ACUTE HEART FAILUE, COVID PU I
--- NOTE | 2019-09-25 11:49 | NUR ---
Pt is Judaism and was anointed. Desk Assistant provided prayer and Communion.
--- NOTE | 2019-09-25 11:51 | Occupational Therapy Eval ---
OT Evaluation-General/PLF Medical Diagnosis Admission Date Sep 25, 2019 at 09:28 Medical Diagnosis: acute heart failure Onset Date: Sep 18, 2019 Therapy Diagnosis Therapy Diagnosis: decreased ADL status Precautions Precautions/Isolations: Fall Prevention, Standard Precautions Referral Physician: Telma Yung DO Referral Reason: Evaluation/Treatment Medical History Pertinent Medical History: CABG, CAD, DM, HTN, [place], OA Additional Medical History hysterectomy, arthritis, chronic back pain, ovarian CA Current History pt admitted acutely on 09/18/2019 with SOB/weakness/CHF, transferring to ARU on 09/25/2019 for skilled therapies Social History Home: Single Level Current Living Status: Alone Entry Into Home: Stairs With Railing Steps Into Home: 3 ADL-Prior Level of Function SCALE: Activities may be completed with or without assistive devices. 0-Tzeafdixns-mcpeuiq completes the activity by him/herself with no assistance from a helper. 5-Set-up or Clean-up Assistance-helper sets up or cleans up; patient completes activity. [place] assists only prior to or following the activity. 4-Supervision or Touching Assistance-helper provides verbal cues and/or touching/steadying and/or contact guard assistance as patient completes activ ity. Assistance may be provided throughout the activity or intermittently. 3-Partial/Moderate Assistance-helper does LESS THAN HALF the effort. [place] lifts, holds or supports trunk or limbs, but provides less than half the effort. 2-Substantial/Maximal Assistance-helper does MORE THAN HALF the effort. [place] lifts or holds trunk or limbs and provides more than half the effort. 6-Vksqmhzls-gxydel does ALL the effort. Patient does none of the effort to complete the activity. Or, the assistance of 2 or more helpers is required for the patient to complete the activity. If activity was not attempted, code reason: 7-Patient Refused. 9-Not Applicable-not attempted and the patient did not perform the activity before the current illness, exacerbation or injury. 10-Not Attempted due to Environmental Limitations-(lack of equipment, weather restraints, etc.). 88-Not Attempted due to Medical Conditions or Safety Concerns. ADL PLOF Comments Pt reports she lives alone and she was able to complete all ADLs at prior level without AE. She has difficulty with donning/doffing footwear stating it is hard for her to reach her feet. She typically does not wear socks and opts for slip on shoes. She has a walk in shower with a built in bench but does not have any grab bars in her bathroom, although she would be interested in getting some. She is independent with functional mobility, using a 4WW the majority of the time around the house, sometimes she does not use any AD in home, and she also has a scooter that she keeps in her garage that she uses to go to her mail box because the distance is too far for her to walk Self Care: Independent Functional Cognition: Independent DME/Equipment: Bath Bench, Shower DME/Equipment Comments 4WW, scooter OT Current Status Subjective Pt agreeable to OT tx, she did not verbalize any pain during session. Mental Status/Objective Patient Orientation: Person, Place, Time Attachments: Renae Catheter, Oxygen (3 L), Telemetry Current Glasses/Contacts: Yes Hearing Aids: No Dentures/Partials: Yes Hand Dominance: Right Upper Extremity ROM WFL, BUE shoulder flexion to approx 150 degrees, she is able to touch the back of her head with her hands. Upper Extremity Coordination WFL Upper Extremity Sensation pt denies tingling/numbness BUEs Upper Extremity Strength grossly 3+/5 BUEs ADL-Treatment Eating (QC): 5 (per pt report, she has difficulty cutting some food and opening containers) Oral Hygiene (QC): 5 (Pt reports she completed task earlier this AM, sitting in a chair at the bathroom sink. Pt able to complete task after set up.) Shower/Bathe Self (QC): 3 (Pt able to wash all parts except BLE lower legs/feet, she is unable to reach them. CGA during stand at [facility] for pericare and buttocks, with cues for safety. ) Upper Body Dressing (QC): 4 (Pt able to doff gown, donning bra, tank top, and jacket. OT assisted pt with managing oxygen lines and telemetry lines.) Lower Body Dressing (QC): 4 (CGA during stand at [facility]. Pt able to thread LEs into pants/underwear and then manange up over hips in stance at [facility]) On/Off Footwear (QC): 3 (Pt able to doff socks, with donning pt was able to don gripper sock over her toes but required assistance pulling them over her heel) Toileting Hygiene (QC): 4 (CGA) Other Treatments [id number]: Pt seated in w/c agreeable to OT eval/tx. OT educated pt about purpose/benefits of OT, she verbalized understanding. Pt then provided information about PLOF and home set up, and participating in UE screen. : PT arrived and completed evaluation : OT/PT cotreat due to poor patient mobility, strength, endurance, fatigue with activity, the need to coordinate UE and LE during activity, reduce the risk of falls. OT focused on UE placement and cues for sequencing and safety, while PT focused on overall gross movements and LE placement. OT notified ICU of pt showering and telemetry lines being removed. Pt used FWW to transfer from w/c to shower chair. She doffed clothes, then completed shower. During stand at [facility], pt attempted to turn in a [place] to get water on her back, OT cued pt to remain forward where she had the grab bars to hold onto and instead use the hand held shower head in her hand to rinse her back off. After shower, pt donned clothes at [place]. Pt used FWW to go to car simulator where she performed functional transfer into/out of car, then over uneven surface and step, then into the therapy gym. Pt required seated rest break on mat, before transferring sit <--> supine. Pt returned to her room where she requested to sit upright in recliner. Post OT/PT cotreat, pt seated in recliner, call light in reach and all needs met. Education OT Patient Education: Correct positioning, Energy conservation, Modified ADL techniques, Progress toward Goal/Update tx plan, Purpose of tx/functional activities, Safety issues, Transfer techniques Teaching Recipient: Patient Teaching Methods: Discussion Response to Teaching: Verbalize Understanding OT Paper Mill Superintendent Goals Jail Goals Time Frame: Oct 09, 2019 Eating (QC): 6 Oral Hygiene (QC): 6 Toileting Hygiene (QC): 6 Shower/Bathe Self (QC): 6 Upper Body Dressing (QC): 6 Lower Body Dressing (QC): 6 On/Off Footwear (QC): 6 1=Demonstrate adherence to instructed precautions during ADL tasks. 2=Patient will verbalize/demonstrate understanding of assistive devices/modifications for ADL. 3=Patient will improve strength/tolerance for activity to enable patient to perform ADL's. OT Education/Plan Problem List/Assessment Assessment: Decreased Activ Tolerance, Decreased UE Strength, Impaired Funct Balance, Impaired I ADL's, Impaired Self-Care Skills Discharge Recommendations Plan/Recommendations: Continue POC Treatment Plan/Plan of Care Treatment,Training & Education: Yes Patient would benefit from OT for education, treatment and training to promote independence in ADL's, mobility, safety and/or upper extremity function for ADL's. Plan of Care: ADL Retraining, Functional Mobility, Orthotic Fitting/Training Treatment Duration: Oct 09, 2019 Frequency: At least 5 of 7 days/Wk (IRF) Estimated Hrs Per Day: 1.5 hours per day Agreement: Yes Rehab Potential: Good Time/GCodes Start Time: 09:00 Stop Time: 10:15 Total Time Billed (hr/min): 65 Billed Treatment Time [id number] OT eval [id number] PT eval (no billed) [id number] OT/PT cotreat 1, EVM (15), ADL 2 (30'), FA (20') TOM HASSAN OT Sep 25, 2019 11:50
[2019-09-25 12:06] VITALS: BP 121/56
[2019-09-25] MEDS: DOCUSATE SODIUM 100 MG (COLACE) CAP PO SCH ×2 (12:55→20:47)
[2019-09-25] MEDS: polyethylene glycoL POWDER 17 GM (MIRALAX) PACK PO SCH ×2 (12:56→20:47)
--- NOTE | 2019-09-25 12:59 | NUR ---
CONTINUE TELEMETRY FOR 1-[address] ALONZO.
[2019-09-25] MEDS ORDERED: RT-ALBUTEROL SULF 2.5 MG/3 ML PRE-MIX VIAL INH PRN (13:00)
[2019-09-25] MEDS ORDERED: CALCIUM CARBONATE 500 MG (TUMS) TAB.CHEW PO PRN (13:00)
[2019-09-25] MEDS ORDERED: HYDROCORTISONE 25 MG SUPPOSITORY (ANUSOL HC) PR PRN (13:00)
[2019-09-25] MEDS ORDERED: FLEET ENEMA ADULT 1 EA BTL PR PRN (13:00)
[2019-09-25] MEDS ORDERED: CHLORASEPTIC LOZENGE MM PRN (13:00)
[2019-09-25] MEDS ORDERED: ACETAMINOPHEN 325 MG TABLET PO PRN (13:00)
--- NOTE | 2019-09-25 13:46 | Occupational Ther Daily Note ---
OT Current Status-Daily Note Subjective Pt alert, sitting in recliner. Pt agrees to therapy. No c/o pain at beginning of therapy. Pt c/o pain in buttock at end of session, ambulated around room to alleviate pain. Mental Status/Objective Patient Orientation: Person, Place, Time, Situation Attachments: IV, Oxygen ADL-Treatment Therapy Code Descriptions/Definitions Functional [place] Measure: 0=Not Assessed/NA 4=Minimal Assistance 1=Total Assistance 5=Supervision or Setup 2=Maximal Assistance 6=Modified [place] 3=Moderate Assistance 7=Complete IndependenceSCALE: Activities may be completed with or without assistive devices. 5-Rimcsoeaew-qroiygq completes the activity by him/herself with no assistance from a helper. 5-Set-up or Clean-up Assistance-helper sets up or cleans up; patient completes activity. [place] assists only prior to or following the activity. 4-Supervision or Touching Assistance-helper provides verbal cues and/or touching/steadying and/or contact guard assistance as patient completes activity. Assistance may be provided throughout the activity or intermittently. 3-Partial/Moderate Assistance-helper does LESS THAN HALF the effort. [place] lifts, holds or supports trunk or limbs, but provides less than half the effort. 2-Substantial/Maximal Assistance-helper does MORE THAN HALF the effort. [place] lifts or holds trunk or limbs and provides more than half the effort. 1-Jlqabdntr-gpaifn does ALL the effort. Patient does none of the effort to complete the activity. Or, the assistance of 2 or more helpers is required for the patient to complete the activity. If activity was not attempted, code reason: 7-Patient Refused. 9-Not Applicable-not attempted and the patient did not perform the activity before the current illness, exacerbation or injury. 10-Not Attempted due to Environmental Limitations-(lack of equipment, weather restraints, etc.). 88-Not Attempted due to Medical Conditions or Safety Concerns. Other Treatment Educated pt on ARU description/expectations, verbalized understanding. Skilled instructions on B UE strengthening for technique and modifications that increase strength and activity tolerance for daily functional tasks. Pt required recovery breaks between each exercise/set. Pt then requested to ambulate around room to decrease buttocks pain 3x's. Pt required assistance to manipulate O2 tubing when ambulating. After session, pt sitting in recliner with call light/phone in reach. All needs met in room. OT [place] Goals [place] Goals Time Frame: Oct 09, 2019 Eating (QC): 6 Oral Hygiene (QC): 6 Toileting Hygiene (QC): 6 Shower/Bathe Self (QC): 6 Upper Body Dressing (QC): 6 Lower Body Dressing (QC): 6 On/Off Footwear (QC): 6 1=Demonstrate adherence to instructed precautions during ADL tasks. 2=Patient will verbalize/demonstrate understanding of assistive devices/modifications for ADL. 3=Patient will improve strength/tolerance for activity to enable patient to perform ADL's. OT Education/Plan Problem List/Assessment Assessment: Decreased Activ Tolerance, Decreased UE Strength, Impaired Self- Care Skills Discharge Recommendations Plan/Recommendations: Continue POC Treatment Plan/Plan of Care Patient would benefit from OT for education, treatment and training to promote independence in ADL's, mobility, safety and/or upper extremity function for ADL's. Plan of Care: ADL Retraining, Functional Mobility, Orthotic Fitting/Training Treatment Duration: Oct 09, 2019 Frequency: At least 5 of 7 days/Wk (IRF) Estimated Hrs Per Day: 1.5 hours per day Agreement: Yes Rehab Potential: Fair Time/GCodes Start Time: 12:55 Stop Time: 13:30 Total Time Billed (hr/min): 35 Billed Treatment Time 1 visit-EX 1 (15 min) FA 1 (20 min) DANAE CROW Sep 25, 2019 13:46
--- NOTE | 2019-09-25 13:51 | Cardiology Progress Note ---
Cardiology SOAP Progress Note Subjective: No cardiac complaints. Objective: I&O/Vital Signs 09/25/19 09/25/19 09/25/19 09/25/19 09:45 11:47 12:06 12:47 Temp 36.6 36.6 Pulse 70 70 68 Resp 18 18 B/P (MAP) 121/56 (77) 121/56 Pulse Ox 97 97 O2 Delivery High Flow N/C High Flow N/C High Flow N/C O2 Flow Rate 3.00 3.00 3.00 3.00 Constitutional: AAO x 3 Respiratory: chest is bilaterally symmetric, lungs clear to auscultation Cardiovascular: regular rate-rhythm, S1 and S2; No diastolic murmur, No systolic murmur Gastrointestional: soft, audible bowel sounds Extremities: normal range of motion, non-tender, normal inspection, no lower extremity edema bilateral Neurologic/Psychiatric: no motor/sensory deficits, alert, normal mood/affect, oriented x 3 Skin: normal color, warm/dry A/P: Assessment/Dx: Acute respiratory failure Congestive heart failure Coronary artery disease Hypertension Paroxysmal atrial fibrillation with RVR Plan: Plan: Status post acute respiratory failure was on Vapotherm, currently better, breathing better responded well to diuretics. Acute diastolic Congestive heart failure, acute probably left ventricular systolic dysfunction ischemic in nature, , started on diuretics. Restart home medication monitor. Echocardiogram shows normal LV function with LVH. Non-STEMI, Coronary artery disease history of CABG in 2010 using COLES to LAD, vein graft to the right coronary artery and vein graft to the circumflex artery, nor recent cardiac workup. Upward trend of troponin. Plaque rupture cannot be ruled out. I discussed at length with the patient but she refused coronary angiography. She understands that she could have recurrent MN or in the future. However she does not want coronary angiography. Paroxysmal atrial fibrillation with RVR, patient refused oral anticoagulation. She understands the risk of stroke. Continue aspirin and Plavix. Patient converted to sinus rhythm. Continue beta blockers. Stable rhythm. History of chest pain in the past, no recent episodes of chest pain Hypertension, resume home medication monitor blood pressure Hyperlipidemia, evaluate lipid profile and resume home medication Diabetes mellitus, followed and managed by primary care physician Thank you for your consultation. Please call me if you have any questions. Jessica Locke MD, FACP, FACC, FSCAI, FHRS, CCDS Interventional Cardiology Cardiac Electrophysiology Vascular Medicine and Endovascular Interventions Celine LOCKE MD Sep 25, 2019 13:51
--- NOTE | 2019-09-25 14:13 | Physical Therapy Daily Note ---
PT Daily Note-Current Subjective Pt in recliner upon arrival and states she has no pain. Pt agrees to tx. Mental Status Patient Orientation: Person, Place, Time, Situation Attachments: Oxygen (2), Renae Catheter Transfers SCALE: Activities may be completed with or without assistive devices. 0-Ewfoevjxsp-ktlwqrd completes the activity by him/herself with no assistance from a helper. 5-Set-up or Clean-up Assistance-helper sets up or cleans up; patient completes activity. [place] assists only prior to or following the activity. 4-Supervision or Touching Assistance-helper provides verbal cues and/or touching/steadying and/or contact guard assistance as patient completes activity. Assistance may be provided throughout the activity or intermittently. 3-Partial/Moderate Assistance-helper does LESS THAN HALF the effort. [place] lifts, holds or supports trunk or limbs, but provides less than half the effort. 2-Substantial/Maximal Assistance-helper does MORE THAN HALF the effort. [place] lifts or holds trunk or limbs and provides more than half the effort. 5-Cjxrwqiyf-czzlmg does ALL the effort. Patient does none of the effort to complete the activity. Or, the assistance of 2 or more helpers is required for the patient to complete the activity. If activity was not attempted, code reason: 7-Patient Refused. 9-Not Applicable-not attempted and the patient did not perform the activity bef ore the current illness, exacerbation or injury. 10-Not Attempted due to Environmental Limitations-(lack of equipment, weather r estraints, etc.). 88-Not Attempted due to Medical Conditions or Safety Concerns. Sit to Stand (QC): 5 Gait Training Does the Patient Walk?: Yes Distance: 150 Walk 10 feet (QC): 5 Walk 50 ft with 2 Turns(QC): 5 Walk 150 ft (QC): 5 Gait Persons Needed: 1 Gait Assistive Device: FWW Pt needed VC to keep FWW closer to her and assist with oxygen. Exercises NuStep Minutes: 10 NuStep Workload: 5 Treatments Pt amb from room to gym and uses NuStep for 10 mins. Pt amb back to room and was left with all needs met, call light in hand. Assessment Current Status: Good Progress Pt easily fatigued needing frequent rest breaks. Pt felt her UE were weaker than LE. PT Short Term Goals Short Term Goals Time Frame: Oct 02, 2019 Roll Left & Right: 5 Sit to lyin Lying to sitting on side of be: 5 Sit to stand: 5 Chair/qyy-gr-mqpqk transfer: 5 Walk 10 feet: 4 Walk 50 feet with two turns: 4 Walk 150 feet: 4 PT User Interface Developer Goals Senior Care Goals PT Senior Care Goals Time Frame: Oct 16, 2019 Roll Left & Right (QC): 6 Sit to Lying (QC): 6 Lying-Sitting on Side/Bed(QC): 6 Sit to Stand (QC): 6 Chair/Yyx-zw-Giuyo Xfer(QC): 6 Toilet Transfer (QC): 6 Car Transfer (QC): 6 Does the Patient Walk: Yes Walk 10 feet (QC): 6 Walk 50ft with 2 Turns (QC): 6 Walk 150 ft (QC): 6 Walking 10ft on Uneven Surface: 6 1 Step (curb) (QC): 4 4 Steps (QC): 4 12 Steps (QC): 88 Picking up an Object (QC): 88 Does the Pt use WC or Scooter?: No Wheel 50 feet with 2 turns (QC: 9 Wheel 150 feet: 9 PT Plan Problem List Problem List: Activity Tolerance, Functional Strength, Gait Treatment/Plan Treatment Plan: Continue Plan of Care Treatment Plan: Bed Mobility, Education, Functional Activity Chip, Functional Strength, Group Therapy, Gait, Safety, Therapeutic Exercise, Transfers Treatment Duration: Oct 16, 2019 Frequency: At least 5 of 7 days/Wk (IRF) Estimated Hrs Per Day: 1.5 hours per day Patient and/or Family Agrees t: Yes Safety Risks/Education Patient Education: Gait Training, Correct Positioning, Safety Issues Teaching Recipient: Patient Teaching Methods: Discussion Response to Teaching: Verbalize Understanding Time/GCodes Time In: 1340 Time Out: 1410 Total Billed Treatment Time: 30 Total Billed Treatment 1, Ex (15m), GT (15m) IRINEO BROCK EQUIPMENT MAINTENANCE TECH Sep 25, 2019 14:12
[2019-09-25 14:22] VITALS: BP 121/56
--- NOTE | 2019-09-25 15:24 | ST Cognitive Linguistic Eval ---
Speech Evaluation-General Medical Diagnosis acute heart failure Onset Date: Sep 18, 2019 Therapy Diagnosis Therapy Diagnosis: Cognitive-communication Referral Referring Physician: Dr. Yung Medical History Pertinent Medical History: CABG, CAD, DM, HTN, [place], OA Reviewed History: Yes Social History Current Living Status: Alone Speech PLF-Current Status Prior Level of Function Patient lived home alone where she was independent for her daily needs. Subjective Patient was pleasant and cooperative with the cognitive assessment. Language Eval: Auditory Comprehends Simple Yes/No Ques: Functional Indent/Objects Multiple [place]: Functional Ident/Pics in Multiple [place]: Functional Follows 1-Step Commands: Functional Follows Complex Directions: Functional Follows General Conversations: Functional Language Eval: Verbal Language Completes Spontaneous Greeting: Functional Produces Auto, Serial Info: Functional Imitates Simple Words/Phrases: Functional Word Finding: Functional Requests Basic Needs: Functional States Basic Personal Info: Functional Expresses Complex Ideas: Functional Objective Cognitive Domain Attention: WNL Memory: Mild Problem Solving: Functional Executive Functions: WNL Visuospatial Skills: WNL Composite Severity Rating: WNL Clock Drawing Severity Rating: WNL Objective Formal/Standardized Tests [facility] Status ([facility]) Results 28/30, within normal limits of function Oral Motor/Speech Production Within Normal Limits Impression Patient is a pleasant 84 y/o female who was admitted to the ARU due to heart failure. Patient was given the UMS with a score of 28/30 obtained. The patient's score is within the normal range of function. Patient does not require further ST services at this time. Speech Patient Assess Expression of Ideas/Wants: Expression (4) Understanding Verbal Content: Understands (4) Brief Interview-Mental Status: Yes Repetition of Three Words: Three (3) Temporal Orientation: Year: Correct (3) Temporal Orientation: Month: Accurate within 5 days(2) Temporal Orientation: Day: Correct (1) Recall : Wear to say "Sock": Yes, no cue required (2) Recall : Color: Yes, no cue required (2) Recall : Bed: Yes,after cueing (1) Memory/Recall Ability: Current season, Location of own room, That he or she is in a hsp/hsp unit Speech-Plan Patient/Family Goals Patient/Family Goals: Patient plans on returning to her home upon hospital discharge. Treatment Plan Speech Therapy Treatment Plan: Discontinue ST Treatment Duration: Sep 25, 2019 Frequency: 1 time per week Estimated Hrs Per Day: .25 hour per day Rehab Potential: Fair Barriers to Learning: None identified Pt/Family Agrees to Plan: Yes Safety Risks/Education Teaching Recipient: Patient Teaching Methods: Discussion Response to Teaching: Verbalize Understanding Education Topics Provided: Safety of within her room and communication of wants/needs Time Speech Therapy Time In: 14:30 Speech Therapy Time Out: 14:45 Total Billed Time: 15 Billed Treatment Time 1, JONATHANNDCOMP CHEN Gomez Sep 25, 2019 15:24
[2019-09-25 16:02] VITALS: BP 123/57
[2019-09-25] MEDS: SUCRALFATE 1 GM (CARAFATE) TAB PO SCH ×2 (16:49→20:46)
--- NOTE | 2019-09-25 16:53 | NUR ---
AL CATHETER DC'D PER ORDERS. PATIENT TOLERATED WELL.
[2019-09-25] MEDS: LORATADINE (CLARITIN) 10 MG TAB PO SCH (20:46)
[2019-09-25] MEDS: PANTOPRAZOLE 40 MG (PROTONIX) TAB PO SCH (20:47)
[2019-09-25] MEDS: SENNA W/DOCUSATE (SENOKOT S) TABLET PO SCH (20:47)
[2019-09-25] MEDS: CATHETER FLUSH 10 ML SYR IV SCH (20:48)
[2019-09-25] MEDS ORDERED: SENNA W/DOCUSATE (SENOKOT S) TABLET PO SCH (21:00)
[2019-09-26 05:34] LABS: BASOPHILS % (AUTO) 1 % (0-10); EOSINOPHILS # (AUTO) 0.2 10^3/uL (0.0-0.3); EOSINOPHILS % (AUTO) 3 % (0-10); HEMATOCRIT 25 % (35-52); HEMOGLOBIN 7.9 G/DL (11.5-16.0); LYMPHOCYTES # (AUTO) 2.1 X 10^3 (1.0-4.0); LYMPHOCYTES % (AUTO) 35 % (12-44); MEAN CORPUSCULAR HEMOGLOBIN 29 PG (25-34); MEAN CORPUSCULAR HGB CONC 32 G/DL (32-36); MEAN CORPUSCULAR VOLUME 92 FL (80-99); MONOCYTES # (AUTO) 0.6 X 10^3 (0.0-1.0); MONOCYTES % (AUTO) 10 % (0-12); NEUTROPHILS # (AUTO) 3.3 X 10^3 (1.8-7.8); NEUTROPHILS % (AUTO) 53 % (42-75); PLATELET COUNT 281 10^3/uL (130-400); RED CELL DISTRIBUTION WIDTH 13.3 % (10.0-14.5); WHITE BLOOD COUNT 6.2 10^3/uL (4.3-11.0)
[2019-09-26 05:53] LABS: ALBUMIN 3.3 GM/DL (3.2-4.5); POTASSIUM 3.3 MMOL/L (3.6-5.0)
[2019-09-26 05:55] LABS: CALCIUM 8.6 MG/DL (8.5-10.1)
[2019-09-26 05:56] LABS: TOTAL PROTEIN 6.2 GM/DL (6.4-8.2)
[2019-09-26 05:57] LABS: BILIRUBIN,TOTAL 0.3 MG/DL (0.1-1.0)
[2019-09-26 05:59] LABS: CREATININE SERUM 1.16 MG/DL (0.60-1.30)
[2019-09-26 06:26] VITALS: BP 132/62
[2019-09-26] MEDS: CATHETER FLUSH 10 ML SYR IV SCH ×3 (06:46→21:14)
[2019-09-26] MEDS: SUCRALFATE 1 GM (CARAFATE) TAB PO SCH ×4 (06:46→21:15)
[2019-09-26] MEDS: glyBURIDE 2.5 MG (MICRONASE) TAB PO SCH (06:46)
[2019-09-26 07:53] VITALS: BP 123/58
[2019-09-26] MEDS: DOCUSATE SODIUM 100 MG (COLACE) CAP PO SCH ×2 (07:54→21:16)
[2019-09-26] MEDS: meTOprolol SUCCINATE 100 MG (TOPROL XL) TAB PO SCH (07:55)
[2019-09-26] MEDS: PANTOPRAZOLE 40 MG (PROTONIX) TAB PO SCH ×2 (07:55→21:16)
[2019-09-26] MEDS: SENNA W/DOCUSATE (SENOKOT S) TABLET PO SCH ×2 (07:55→21:15)
[2019-09-26] MEDS: LORATADINE (CLARITIN) 10 MG TAB PO SCH ×2 (07:55→21:16)
[2019-09-26] MEDS: KCL 10 MEQ TAB (MICRO K) PO SCH ×2 (07:55→17:03)
[2019-09-26] MEDS: IRON SUCROSE 200 MG/10 ML (VENOFER) VIAL IV SCH (07:55)
[2019-09-26] MEDS: FUROSEMIDE 40 MG/4 ML INJ (LASIX) IVP SCH (07:56)
[2019-09-26] MEDS: polyethylene glycoL POWDER 17 GM (MIRALAX) PACK PO SCH ×2 (09:00→21:15)
--- NOTE | 2019-09-26 09:45 | Physical Therapy Daily Note ---
PT Daily Note-Current Subjective Pt in bed upon arrival. Agrees to PT treatment. Pain Numeric Pain Scale: 0-No Pain Location: No Pain Reported Mental Status Patient Orientation: Person, Place, Time, Situation Attachments: Oxygen, Other-See Comments ([place] monitor) Transfers SCALE: Activities may be completed with or without assistive devices. 3-Qjupeythbg-coyiohx completes the activity by him/herself with no assistance from a helper. 5-Set-up or Clean-up Assistance-helper sets up or cleans up; patient completes activity. [place] assists only prior to or following the activity. 4-Supervision or Touching Assistance-helper provides verbal cues and/or touching/steadying and/or contact guard assistance as patient completes activity. Assistance may be provided throughout the activity or intermittently. 3-Partial/Moderate Assistance-helper does LESS THAN HALF the effort. [place] lifts, holds or supports trunk or limbs, but provides less than half the effort. 2-Substantial/Maximal Assistance-helper does MORE THAN HALF the effort. [place] lifts or holds trunk or limbs and provides more than half the effort. 0-Syrdubmes-vzjiyz does ALL the effort. Patient does none of the effort to complete the activity. Or, the assistance of 2 or more helpers is required for the patient to complete the activity. If activity was not attempted, code reason: 7-Patient Refused. 9-Not Applicable-not attempted and the patient did not perform the activity before the current illness, exacerbation or injury. 10-Not Attempted due to Environmental Limitations-(lack of equipment, weather restraints, etc.). 88-Not Attempted due to Medical Conditions or Safety Concerns. Roll Left & Right (QC): 4 Sit to Lying (QC): 4 Lying to Sitting/Side of Bed(Q: 4 Sit to Stand (QC): 4 Toilet Transfer (QC): 4 Gait Training Does the Patient Walk?: Yes Walk 10 feet (QC): 4 Gait Persons Needed: 1 Gait Assistive Device: FWW Pt ambulates to/from bathroom w/ FWW at supervision. Exercises Supine Ex: Ankle pumps (15 x2), Glut sets (15 x2), Heel Slides (15 x2), Short Arc Quads (15 x2), Straight leg raise (15 x2), Hip abd/add (15 x2) Treatments Pt completes supine ex in bed. Requests to use the bathroom. Completes supine<>sit, sit<>stand and toilet transfer w/ supervision. Pt ambulates w/ FWW to/from bathroom w/ supervision. Pt in bed at end of treatment w/ bed alarm on, bed side table and call light w/in reach and all needs met. Assessment Current Status: Fair Progress Pt presents w/ self limiting demeanor. Stated "Some days I just can't do anything. I think I can't do anything. Then I surprise myself and am able to do these things." PT Short Term Goals Short Term Goals Time Frame: Oct 02, 2019 Roll Left & Right: 5 Sit to lyin Lying to sitting on side of be: 5 Sit to stand: 5 Chair/xdr-ps-oeffh transfer: 5 Walk 10 feet: 4 Walk 50 feet with two turns: 4 Walk 150 feet: 4 PT Usp Goals Track Leader Goals PT Track Leader Goals Time Frame: Oct 16, 2019 Roll Left & Right (QC): 6 Sit to Lying (QC): 6 Lying-Sitting on Side/Bed(QC): 6 Sit to Stand (QC): 6 Chair/Vkx-gn-Snoff Xfer(QC): 6 Toilet Transfer (QC): 6 Car Transfer (QC): 6 Does the Patient Walk: Yes Walk 10 feet (QC): 6 Walk 50ft with 2 Turns (QC): 6 Walk 150 ft (QC): 6 Walking 10ft on Uneven Surface: 6 1 Step (curb) (QC): 4 4 Steps (QC): 4 12 Steps (QC): 88 Picking up an Object (QC): 88 Does the Pt use WC or Scooter?: No Wheel 50 feet with 2 turns (QC: 9 Wheel 150 feet: 9 PT Plan Problem List Problem List: Safety, Balance, Gait, Transfer, Bed Mobility Treatment/Plan Treatment Plan: Continue Plan of Care Treatment Plan: Bed Mobility, Education, Functional Activity Chip, Functional Strength, Group Therapy, Gait, Safety, Therapeutic Exercise, Transfers Treatment Duration: Oct 16, 2019 Frequency: At least 5 of 7 days/Wk (IRF) Estimated Hrs Per Day: 1.5 hours per day Patient and/or Family Agrees t: Yes Safety Risks/Education Patient Education: Safety Issues Teaching Recipient: Patient Teaching Methods: Discussion Response to Teaching: Verbalize Understanding Time/GCodes Time In: 0821 Time Out: 08 Total Billed Treatment Time: 15 Total Billed Treatment 1, Ex (15m) CHRISTINA [employer] ENG Sep 26, 2019 09:45
--- NOTE | 2019-09-26 11:06 | PM&R Progress Note ---
Subjective HPI/CC On Admission Date Seen by Provider: Sep 26, 2019 Time Seen by Provider: 07:00 Subjective/Events-last exam Patient feels better today just sleepy just woke up No pain reported No bloody stools No use of HC suppository Hgb 7.9 on iron infusions Breathing well Weaning O2 now at 2L/min since does not use at home BM++ Checked meds and labs Conferred wtih RN Reviewed therapy notes Review of Systems General: Fatigue, Malaise Pulmonary: Dyspnea Cardiovascular: Edema Neurological: Weakness Objective Exam Vital Signs Vital Signs Date Time Temp Pulse Resp B/P (MAP) Pulse Ox O2 Delivery O2 Flow Rate FiO2 09/26/19 07:53 70 123/58 (79) 09/26/19 07:12 High Flow N/C 2.00 09/26/19 06:26 36.8 18 96 09/25/19 14:22 28 Capillary Refill : Less Than 3 Seconds General Appearance: No Apparent Distress, WD/WN, Chronically ill, Obese HEENT: PERRL/EOMI, Normal ENT Inspection, Pharynx Normal Neck: Full Range of Motion, Normal Inspection, Non Tender, Supple, Carotid Bruit Respiratory: Chest Non Tender, Lungs Clear, Normal Breath Sounds, No Accessory Muscle Use, No Respiratory Distress Cardiovascular: Regular Rate, Rhythm, No Edema, No Gallop, No JVD, No Murmur, Normal Peripheral Pulses Gastrointestinal: Normal Bowel Sounds, No Organomegaly, No Pulsatile Mass, Non Tender, Soft Back: Normal Inspection, No CVA Tenderness, No Vertebral Tenderness Extremity: Normal Capillary Refill, Normal Inspection, Normal Range of Motion, Non Tender, No Calf Tenderness, No Pedal Edema Neurologic/Psychiatric: Alert, Oriented x3, No Motor/Sensory Deficits, Normal Mood/Affect, career development facilitator II-XII Norm as Tested, Motor Weakness (generalized extremities) Skin: Normal Color, Warm/Dry Lymphatic: No Adenopathy Results/Procedures Lab Laboratory Tests 09/26/19 05:00 Patient resulted labs reviewed. FIM Transfers Therapy Code Descriptions/Definitions Functional [place] Measure: 0=Not Assessed/NA 4=Minimal Assistance 1=Total Assistance 5=Supervision or Setup 2=Maximal Assistance 6=Modified [place] 3=Moderate Assistance 7=Complete IndependenceSCALE: Activities may be completed with or without assistive devices. 7-Flfxstzrvt-mdooced completes the activity by him/herself with no assistance from a helper. 5-Set-up or Clean-up Assistance-helper sets up or cleans up; patient completes activity. [place] assists only prior to or following the activity. 4-Supervision or Touching Assistance-helper provides verbal cues and/or touching/steadying and/or contact guard assistance as patient completes activity. Assistance may be provided throughout the activity or intermittently. 3-Partial/Moderate Assistance-helper does LESS THAN HALF the effort. [place] lifts, holds or supports trunk or limbs, but provides less than half the effort. 2-Substantial/Maximal Assistance-helper does MORE THAN HALF the effort. [place] lifts or holds trunk or limbs and provides more than half the effort. 4-Hgikgeori-gtuikd does ALL the effort. Patient does none of the effort to complete the activity. Or, the assistance of 2 or more helpers is required for the patient to complete the activity. If activity was not attempted, code reason: 7-Patient Refused. 9-Not Applicable-not attempted and the patient did not perform the activity before the current illness, exacerbation or injury. 10-Not Attempted due to Environmental Limitations-(lack of equipment, weather restraints, etc.). 88-Not Attempted due to Medical Conditions or Safety Concerns. Roll Left to Right (QC): 4 Sit to Lying (QC): 4 Sit to Stand (QC): 4 Chair/Wgk-hd-Vxkoe Xfer(QC): 4 Car Transfer (QC): 4 Gait Training Does the Patient Walk?: Yes Distance: 150 Walk 10 feet (QC): 4 Walk 50 ft with 2 Turns(QC): 5 Walk 150 ft (QC): 5 Walking 10ft/uneven surface-QC: 4 Gait Persons Needed: 1 Gait Assistive Device: FWW Wheelchair Training Does the Pt Use a Wheelchair?: No Wheel 50 ft with 2 turns (QC): 9 Wheel 150 ft (QC): 9 Stair Training #of Steps: 1 1 Step (curb) (QC): 4 4 Steps (QC): 88 12 Steps (QC): 88 Balance Picking up an Object (QC): 88 ADL-Treatment Eating (QC): 5 (per pt report, she has difficulty cutting some food and opening containers) Oral Hygiene (QC): 5 (Pt reports she completed task earlier this AM, sitting in a chair at the bathroom sink. Pt able to complete task after set up.) Shower/Bathe Self (QC): 3 (Pt able to wash all parts except BLE lower legs/ feet, she is unable to reach them. CGA during stand at [facility] for pericare and buttocks, with cues for safety. ) Upper Body Dressing (QC): 4 (Pt able to doff gown, donning bra, tank top, and jacket. OT assisted pt with managing oxygen lines and telemetry lines.) Lower Body Dressing (QC): 4 (CGA during stand at [facility]. Pt able to thread LEs into pants/underwear and then manange up over hips in stance at [facility]) On/Off Footwear (QC): 3 (Pt able to doff socks, with donning pt was able to don gripper sock over her toes but required assistance pulling them over her heel) Toileting Hygiene (QC): 4 (CGA) Assessment/Plan Assessment and Plan Assess & Plan/Chief Complaint Assessment: Debility/myopathy from critical illness s/p acute exacerbation of congestive heart failure new onset New onset PAF CAD previous bypass DM HTN Severe arthritis Melena requiring DC Lovenox and ASA Hemorrhoids Hypokalemia Plan: Appreciate cardiology Wean oxygen Diuresis Home meds COVID swab negative IRF protocol Potassium (1) Respiratory distress (2) CAD (coronary artery disease) (3) Diabetes (4) Arthritis (5) Hypercapnia (6) Hyperlipidemia (7) Hypertension (8) BiPAP (biphasic positive airway pressure) dependence (9) Type 2 AMI (acute myocardial infarction) (10) Atrial fibrillation with rapid ventricular response (11) Hx of CABG (12) Acute heart failure Status: Acute (13) Melena (14) Anemia, iron deficiency KEILA MARTINEZ DO Sep 26, 2019 11:06
--- NOTE | 2019-09-26 11:08 | Individualized Plan of Care ---
Individualized Plan of Care Rehab Nursing IPOC Order Admission Date Sep 25, 2019 at 09:28 Current Orders Orders Admission Order(Inpt,Obs,Sdc) (09/25/19 06:13) Vital Signs: Per Unit Policy ( 08,16,00 (09/25/19 06:13) Adam Church , (09/25/19 06:13) Sequential Compression Device Q4H (09/25/19 06:13) Nca Certified Concierge-Inpt Rehab Con (09/25/19 06:13) Rehab Nursing Orders-Ipoc (09/25/19 06:13) Physical Therapy Rehab Orders (09/25/19 06:13) Occupational Therapy Rehab Ord (09/25/19 06:13) Speech Therapy Rehab Orders (09/25/19 06:13) Cbc With Automated Diff (09/26/19 06:00) Comprehensive Metabolic Panel (09/26/19 06:00) Intake & Output 06,14,22 (09/25/19 06:13) Precautions (Aru) (09/25/19 06:13) Weekly Weight WEEK (09/25/19 06:13) Rehab-Intensity Of Therapy (09/25/19 06:13) Cho 60g/M 3snack (16-2000 Dex) (09/25/19 Breakfast) Initiate Admission Nursing Pro .admission (09/25/19 06:13) Alprazolam Tablet (Xanax Tablet) (09/25/19 06:15) Calcium Carbonate Chew Tablet (Antacid C (09/25/19 06:15) Diphenhydramine Tablet (Benadryl Tablet) (09/25/19 06:15) Docusate Sodium Capsule (Colace Capsule) (09/25/19 09:00) Docusate Sodium Capsule (Colace Capsule) (09/25/19 06:15) Bisacodyl Suppository (Dulcolax Supposit (09/25/19 06:15) Lactulose Oral Solution (Enulose Oral So (09/25/19 06:15) Na Phos/Na Biphos Enema (Fleet Enema Steve (09/25/19 06:15) Guaifenesin/Codeine Syrup (Robitussin Ac (09/25/19 06:15) Loperamide Tablet (Imodium Tablet) (09/25/19 06:15) Enoxaparin Injection (Lovenox Injection) (09/25/19 06:15) Melatonin Tablet (Melatonin Tablet) (09/25/19 06:15) Polyethylene Glycol Powder Pkt (Miralax (09/25/19 09:00) Ondansetron Oral Dissolve Tab (Zofran (09/25/19 06:15) Senna S Tablet (Senokot S Tablet) (09/25/19 21:00) Code/Resuscitation (09/25/19 06:13) Initiate Admission Nursing Pro .admission (09/25/19 06:13) Admission Arrival Bed Request (09/25/19 09:28) Ambulate 08,12,20 (09/25/19 12:09) Sequential Compression Device Q4H (09/25/19 12:09) Dvt/Vte Risk - Notifiy Physici Q4H (09/25/19 12:09) Hydrocortisone Suppository (Anusol-Hc Feldman (09/25/19 13:00) Code/Resuscitation (09/25/19 12:55) Telemetry (09/25/19 12:55) Acetaminophen Tablet/Caplet (Tylenol T (09/25/19 13:00) Albuterol Pre-Mix Nebs (Rt) (Proventil (09/25/19 13:00) Atorvastatin Tablet (Lipitor Tablet) (09/26/19 09:00) Calcium Carbonate Chew Tablet (Antacid C (09/25/19 13:00) Furosemide Injection (Lasix Injection) (09/26/19 09:00) Loratadine Tablet (Claritin Tablet) (09/25/19 21:00) Na Phos/Na Biphos Enema (Fleet Enema Steve (09/25/19 13:00) Pantoprazole Tablet (Protonix Tablet) (09/25/19 21:00) Phenol/Na Phenolate Lozenge (Chlorasepti (09/25/19 13:00) Senna S Tablet (Senokot S Tablet) (09/25/19 21:00) Sucralfate Tablet (Carafate Tablet) (09/25/19 16:00) Glyburide Tablet (Micronase Tablet) (09/26/19 07:00) Metoprolol Succinate (Xl) Tab (Toprol Xl (09/26/19 09:00) Consult Cardiology (09/25/19 12:55) Consult General Surgery (09/25/19 12:55) Svn Small Volume Nebulizer (09/25/19 12:55) Telemetry Nursing Assessment ( (09/25/19 12:55) Svn Small Volume Nebulizer (09/25/19 12:55) Iron Sucrose Injection (Venofer Injectio (09/26/19 09:00) Mat Initiate Protocol (09/25/19 14:22) Patient Visit (09/25/19 ) Pt Eval Moderate Complexity (09/25/19 ) Functional Activities, Ea 15 (09/25/19 ) Patient Visit (09/25/19 ) Exercise Therap, Ea 15 Min (09/25/19 ) Gait Training, Ea 15 Min (09/25/19 ) Patient Visit (09/25/19 ) Speech Sound Lang Comp (09/25/19 ) Catheter(Urinary) Discontinue (09/25/19 16:52) Nursing Communication (Order) (09/25/19 19:24) Sodium Chloride Flush (Catheter Flush Sy (09/25/19 22:00) Potassium Chloride (Tablet) (Klor Con Ta (09/26/19 08:00) Patient Visit (09/26/19 ) Exercise Therap, Ea 15 Min (09/26/19 ) Rehab Nursing Orders: Ongoing Assess. of Function Status, Bladder Management, Bladder Scan, Bladder Training, Bowel Management, Bowel Training, Disease Management & Educaiton, DVT Prophylaxis, Fall Prevention, Fluid/Electrolyte/Nutrition Mgmt, Infection Prevention, Medication Management & Education, Management of Risks & Complications, Nutrition Management, Pain Management, Patient/Family Support, Safety Management Intensity of Therapy to be met Patient to be seen: 15 hrs over 7 cons. days PT IPOC Problem List: Safety, Balance, Gait, Transfer, Bed Mobility Treatment Plan: Continue Plan of Care Bed Mobility, Education, Functional Activity Chip, Functional Strength, Group Therapy, Gait, Safety, Therapeutic Exercise, Transfers Treatment Duration: Oct 16, 2019 Frequency: At least 5 of 7 days/Wk (IRF) Estimated Hrs Per Day: 1.5 hours per day OT IPOC Problems: Decreased Activ Tolerance, Decreased UE Strength, Impaired Self-Care Skills OT Treatment, Training and Edu: Yes Plan of Care: ADL Retraining, Functional Mobility, Orthotic Fitting/Training Treatment Duration: Oct 09, 2019 Frequency: At least 5 of 7 days/Wk (IRF) Estimated Hrs Per Day: 1.[address] IPOC Speech Therapy Treatment Plan: Discontinue ST Treatment Duration: Sep 25, 2019 Frequency: 1 time per week Estimated Hrs Per Day: .25 hour per day Nca Certified Concierge/Case Mgmt Nca Certified Concierge/Case Managemen: Discharge Planning Dietitian/Sales & Service Associate Dietitian/Sales & Service Associate to monitor nutritional status and make changes and/or recommendations as needed and work with speech pathology on dietary upgrades as the occur. Physician IPOC Medical Issues being managed closely and that require the 24 hour availability of a physician: Recent critical illness with 3 ICU transfers will require close Cardiology management with melena monitoring and severe anemia status in order to decrease decompensation risks Medical Issues: Bowel/Bladder Function, DVT Prophylaxis, Falls Precautions, Fluid/Electrolyte/Nutrition Balance, Infection Protection, Pain Management Brief Synthesis of Preadmission Screen, Post-Admission Evaluation, and Therapy Evaluations: PT OT will help regain strength and increase ADL independence in order to return home to independent living Medical Prognosis: Good Anticipated Length of Stay: 7 days KEILA MARTINEZ DO Sep 26, 2019 11:08
--- NOTE | 2019-09-26 14:26 | Cardiology Progress Note ---
Cardiology SOAP Progress Note Subjective: No cardiac complaints. Lying comfortably in the recliner. Objective: I&O/Vital Signs 09/26/19 09/26/19 09/26/19 09/26/19 06:26 07:12 07:37 07:53 Temp 36.8 Pulse 63 77 70 Resp 18 B/P (MAP) 132/62 (85) 123/58 (79) Pulse Ox 96 O2 Delivery Nasal Cannula High Flow N/C O2 Flow Rate 2.00 2.00 09/26/19 13:00 Pulse 65 09/26/19 00:00 Intake Total 400 ml Output Total 1100 ml Balance -700 ml Constitutional: AAO x 3 Respiratory: chest is bilaterally symmetric, lungs clear to auscultation Cardiovascular: regular rate-rhythm, S1 and S2; No diastolic murmur, No systolic murmur Gastrointestional: soft, audible bowel sounds Extremities: normal range of motion, non-tender, normal inspection, no lower extremity edema bilateral Neurologic/Psychiatric: no motor/sensory deficits, alert, normal mood/affect, oriented x 3 Skin: normal color, warm/dry Results/Procedures: Labs Laboratory Tests 09/26/19 05:00: White Blood Count 6.2, Red Blood Count 2.70L, Hemoglobin 7.9L, Hematocrit 25L, Mean Corpuscular Volume 92, Mean Corpuscular Hemoglobin 29, Mean Corpuscular Hemoglobin Concent 32, Red Cell Distribution Width 13.3, Platelet Count 281, Mean Platelet Volume 10.0, Neutrophils (%) (Auto) 53, Lymphocytes (%) (Auto) 35, Monocytes (%) (Auto) 10, Eosinophils (%) (Auto) 3, Basophils (%) (Auto) 1, Neutrophils # (Auto) 3.3, Lymphocytes # (Auto) 2.1, Monocytes # (Auto) 0.6, Eosinophils # (Auto) 0.2, Basophils # (Auto) 0.0, Sodium Level 144, Potassium Level 3.3L, Chloride Level 101, Carbon Dioxide Level 31, Anion Gap 12, Blood Urea Nitrogen 43H, Creatinine 1.16, Estimat Glomerular Filtration Rate 45, BUN/Creatinine Ratio 37, Glucose Level 143H, Calcium Level 8.6, Corrected Calcium 9.2, Total Bilirubin 0.3, Aspartate Amino Transf (AST/SGOT) 20, Alanine Aminotransferase (ALT/SGPT) 45, Alkaline Phosphatase 48, Total Protein 6.2L, Albumin 3.3 A/P: Assessment/Dx: Acute respiratory failure Congestive heart failure Coronary artery disease Hypertension Paroxysmal atrial fibrillation with RVR Plan: Status post acute respiratory failure was previously on Vapotherm, resolved, breathing better responded well to diuretics. Acute diastolic Congestive heart failure, acute probably left ventricular systolic dysfunction ischemic in nature, , started on diuretics. Restart home medication monitor. Echocardiogram shows normal LV function with LVH. Non-STEMI, Coronary artery disease history of CABG in 2010 using COLES to LAD, vein graft to the right coronary artery and vein graft to the circumflex artery, nor recent cardiac workup. Upward trend of troponin. Plaque rupture cannot be ruled out. I discussed at length with the patient but she refused coronary angiography. She understands that she could have recurrent CA or in the future. However she does not want coronary angiography. Paroxysmal atrial fibrillation with RVR, patient refused oral anticoagulation. She understands the risk of stroke. Continue aspirin and Plavix. Patient converted to sinus rhythm. Continue beta blockers. Stable rhythm. History of chest pain in the past, no recent episodes of chest pain Hypertension, resume home medication monitor blood pressure Hyperlipidemia, evaluate lipid profile and resume home medication Diabetes mellitus, followed and managed by primary care physician Thank you for your consultation. Please call me if you have any questions. Jessica Locke MD, FACP, FACC, FSCAI, FHRS, CCDS Interventional Cardiology Cardiac Electrophysiology Vascular Medicine and Endovascular Interventions Celine LOCKE MD Sep 26, 2019 14:26
[2019-09-26 16:00] VITALS: BP 116/55
[2019-09-26] MEDS: MELATONIN 3 MG TABLET PO PRN (21:16)
[2019-09-27 05:03] VITALS: BP 128/61
[2019-09-27] MEDS: CATHETER FLUSH 10 ML SYR IV SCH ×3 (06:12→20:39)
[2019-09-27] MEDS: glyBURIDE 2.5 MG (MICRONASE) TAB PO SCH (06:12)
[2019-09-27] MEDS: SUCRALFATE 1 GM (CARAFATE) TAB PO SCH ×2 (06:12→11:00)
[2019-09-27] MEDS: SENNA W/DOCUSATE (SENOKOT S) TABLET PO SCH ×2 (09:00→20:38)
[2019-09-27] MEDS: DOCUSATE SODIUM 100 MG (COLACE) CAP PO SCH ×2 (09:00→20:38)
[2019-09-27] MEDS: polyethylene glycoL POWDER 17 GM (MIRALAX) PACK PO SCH ×2 (09:00→20:38)
[2019-09-27] MEDS: KCL 10 MEQ TAB (MICRO K) PO SCH ×2 (10:03→17:51)
[2019-09-27] MEDS: PANTOPRAZOLE 40 MG (PROTONIX) TAB PO SCH ×2 (10:03→20:37)
[2019-09-27] MEDS: LORATADINE (CLARITIN) 10 MG TAB PO SCH ×2 (10:03→20:38)
[2019-09-27] MEDS: meTOprolol SUCCINATE 100 MG (TOPROL XL) TAB PO SCH (10:03)
[2019-09-27] MEDS: FUROSEMIDE 40 MG/4 ML INJ (LASIX) IVP SCH (10:04)
--- NOTE | 2019-09-27 11:47 | PM&R Progress Note ---
Subjective HPI/CC On Admission Date Seen by Provider: Sep 27, 2019 Time Seen by Provider: 16:00 Subjective/Events-last exam Patient feels better today and was very sleepy yesterday until evening No pain reported Changing her Carafate to prn now No bloody stools reported No use of HC suppository Labs due tomorrow morning Breathing well Weaning O2 now at 2L/min since does not use at home Talked about cardiac cath in-depth and she really doesn't want to do it unless emergency but I told her that we could identify a stenotic lesion and avoid this episode again if done in an elective fashion BM++ Checked meds and labs Conferred wtih RN Reviewed therapy notes Review of Systems General: Fatigue, Malaise Pulmonary: Dyspnea Neurological: Weakness Objective Exam Vital Signs Vital Signs Date Time Temp Pulse Resp B/P (MAP) Pulse Ox O2 Delivery O2 Flow Rate FiO2 09/27/19 19:00 65 09/27/19 17:02 36.8 16 109/53 (71) 99 Room Air 09/27/19 09:00 2.00 09/25/19 14:22 28 Capillary Refill : Less Than 3 Seconds General Appearance: No Apparent Distress, WD/WN, Chronically ill, Obese HEENT: PERRL/EOMI, Normal ENT Inspection, Pharynx Normal Neck: Full Range of Motion, Normal Inspection, Non Tender, Supple, Carotid Brui t Respiratory: Chest Non Tender, Lungs Clear, Normal Breath Sounds, No Accessory Muscle Use, No Respiratory Distress Cardiovascular: Regular Rate, Rhythm, No Edema, No Gallop, No JVD, No Murmur, Normal Peripheral Pulses Gastrointestinal: Normal Bowel Sounds, No Organomegaly, No Pulsatile Mass, Non Tender, Soft Back: Normal Inspection, No CVA Tenderness, No Vertebral Tenderness Extremity: Normal Capillary Refill, Normal Inspection, Normal Range of Motion, Non Tender, No Calf Tenderness, No Pedal Edema Neurologic/Psychiatric: Alert, Oriented x3, No Motor/Sensory Deficits, Normal Mood/Affect, 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 FIM Transfers Therapy Code Descriptions/Definitions Functional [place] Measure: 0=Not Assessed/NA 4=Minimal Assistance 1=Total Assistance 5=Supervision or Setup 2=Maximal Assistance 6=Modified [place] 3=Moderate Assistance 7=Complete IndependenceSCALE: Activities may be completed with or without assistive devices. 5-Vdsmqxjjri-vytzudr completes the activity by him/herself with no assistance from a helper. 5-Set-up or Clean-up Assistance-helper sets up or cleans up; patient completes activity. [place] assists only prior to or following the activity. 4-Supervision or Touching Assistance-helper provides verbal cues and/or touching/steadying and/or contact guard assistance as patient completes activity. Assistance may be provided throughout the activity or intermittently. 3-Partial/Moderate Assistance-helper does LESS THAN HALF the effort. [place] lifts, holds or supports trunk or limbs, but provides less than half the effort. 2-Substantial/Maximal Assistance-helper does MORE THAN HALF the effort. [place] lifts or holds trunk or limbs and provides more than half the effort. 8-Pswuehyxb-shmvas does ALL the effort. Patient does none of the effort to complete the activity. Or, the assistance of 2 or more helpers is required for the patient to complete the activity. If activity was not attempted, code reason: 7-Patient Refused. 9-Not Applicable-not attempted and the patient did not perform the activity before the current illness, exacerbation or injury. 10-Not Attempted due to Environmental Limitations-(lack of equipment, weather restraints, etc.). 88-Not Attempted due to Medical Conditions or Safety Concerns. Roll Left to Right (QC): 4 Sit to Lying (QC): 4 Sit to Stand (QC): 4 Chair/Xby-ya-Gfxnd Xfer(QC): 4 Car Transfer (QC): 4 Gait Training Does the Patient Walk?: Yes Distance: 150 Walk 10 feet (QC): 4 Walk 50 ft with 2 Turns(QC): 5 Walk 150 ft (QC): 5 Walking 10ft/uneven surface-QC: 4 Gait Persons Needed: 1 Gait Assistive Device: FWW Wheelchair Training Does the Pt Use a Wheelchair?: No Wheel 50 ft with 2 turns (QC): 9 Wheel 150 ft (QC): 9 Stair Training #of Steps: 1 1 Step (curb) (QC): 4 4 Steps (QC): 88 12 Steps (QC): 88 Balance Picking up an Object (QC): 88 ADL-Treatment Eating (QC): 5 (per pt report, she has difficulty cutting some food and opening containers) Oral Hygiene (QC): 5 (Pt reports she completed task earlier this AM, sitting in a chair at the bathroom sink. Pt able to complete task after set up.) Shower/Bathe Self (QC): 3 (Pt able to wash all parts except BLE lower legs/feet, she is unable to reach them. CGA during stand at [facility] for pericare and buttocks, with cues for safety. ) Upper Body Dressing (QC): 4 (Pt able to doff gown, donning bra, tank top, and jacket. OT assisted pt with managing oxygen lines and telemetry lines.) Lower Body Dressing (QC): 4 (CGA during stand at [facility]. Pt able to thread LEs into pants/underwear and then manange up over hips in stance at [facility]) On/Off Footwear (QC): 3 (Pt able to doff socks, with donning pt was able to don gripper sock over her toes but required assistance pulling them over her heel) Toileting Hygiene (QC): 4 (CGA) Assessment/Plan Assessment and Plan Assess & Plan/Chief Complaint Assessment: Debility/myopathy from critical illness s/p acute exacerbation of congestive heart failure new onset New onset PAF CAD previous bypass DM HTN Severe arthritis Melena requiring DC Lovenox and ASA Hemorrhoids Hypokalemia Plan: Appreciate cardiology Wean oxygen Diuresis Home meds COVID swab negative IRF protocol Potassium (1) Respiratory distress (2) CAD (coronary artery disease) (3) Diabetes (4) Arthritis (5) Hypercapnia (6) Hyperlipidemia (7) Hypertension (8) BiPAP (biphasic positive airway pressure) dependence (9) Type 2 AMI (acute myocardial infarction) (10) Atrial fibrillation with rapid ventricular response (11) Hx of CABG (12) Acute heart failure Status: Acute (13) Melena (14) Anemia, iron deficiency KEILA MARTINEZ DO Sep 27, 2019 11:47
--- NOTE | 2019-09-27 14:05 | Cardiology Progress Note ---
Cardiology SOAP Progress Note Subjective: Denies any shortness of breath or chest pain Objective: I&O/Vital Signs 09/27/19 09/27/19 09/27/19 05:03 07:08 09:00 Temp 36.2 Pulse 63 65 Resp 18 B/P (MAP) 128/61 (83) Pulse Ox 99 O2 Delivery Room Air Nasal Cannula O2 Flow Rate 2.00 09/27/19 00:00 Intake Total 720 ml Balance 720 ml Constitutional: AAO x 3 Respiratory: chest is bilaterally symmetric, lungs clear to auscultation Cardiovascular: regular rate-rhythm, S1 and S2; No diastolic murmur, No systolic murmur Gastrointestional: soft, audible bowel sounds Extremities: normal range of motion, non-tender, normal inspection, no lower extremity edema bilateral Neurologic/Psychiatric: no motor/sensory deficits, alert, normal mood/affect, oriented x 3 Skin: normal color, warm/dry A/P: Assessment/Dx: Acute respiratory failure Congestive heart failure Coronary artery disease Hypertension Paroxysmal atrial fibrillation with RVR Plan: Status post acute respiratory failure was previously on Vapotherm, resolved, breathing better responded well to diuretics. Acute diastolic Congestive heart failure, acute probably left ventricular systolic dysfunction ischemic in nature, , started on diuretics. Restart home medication monitor. Echocardiogram shows normal LV function with LVH. Non-STEMI, Coronary artery disease history of CABG in 2010 using COLES to LAD, vein graft to the right coronary artery and vein graft to the circumflex artery, nor recent cardiac workup. Upward trend of troponin. Plaque rupture cannot be ruled out. I discussed at length with the patient but she refused coronary angiography. She understands that she could have recurrent FL or in the future. However she does not want coronary angiography. Paroxysmal atrial fibrillation with RVR, patient refused oral anticoagulation. She understands the risk of stroke. Continue aspirin and Plavix. Patient converted to sinus rhythm. Continue beta blockers. Stable rhythm. History of chest pain in the past, no recent episodes of chest pain Hypertension, resume home medication monitor blood pressure Hyperlipidemia, evaluate lipid profile and resume home medication Diabetes mellitus, followed and managed by primary care physician Thank you for your consultation. Please call me if you have any questions. Jessica Locke MD, FACP, FACC, FSCAI, FHRS, CCDS Interventional Cardiology Cardiac Electrophysiology Vascular Medicine and Endovascular Interventions Celine LOCKE MD Sep 27, 2019 14:05
[2019-09-27] MEDS ORDERED: SUCRALFATE 1 GM (CARAFATE) TAB PO PRN (15:30)
[2019-09-27 17:02] VITALS: BP 109/53
[2019-09-27] MEDS: OXYMETAZOLINE (AFRIN) 0.05% NA 30 ML BTL SCH ×2 (17:52→20:38)
[2019-09-27] MEDS: MELATONIN 3 MG TABLET PO PRN (20:37)
[2019-09-28 05:06] VITALS: BP 124/57
[2019-09-28 05:49] LABS: BASOPHILS % (AUTO) 1 % (0-10); EOSINOPHILS # (AUTO) 0.2 10^3/uL (0.0-0.3); EOSINOPHILS % (AUTO) 3 % (0-10); HEMATOCRIT 30 % (35-52); HEMOGLOBIN 9.4 G/DL (11.5-16.0); LYMPHOCYTES % (AUTO) 33 % (12-44); MEAN CORPUSCULAR HEMOGLOBIN 29 PG (25-34); MEAN CORPUSCULAR HGB CONC 32 G/DL (32-36); MEAN CORPUSCULAR VOLUME 93 FL (80-99); MEAN PLATELET VOLUME 9.8 FL (7.4-10.4); MONOCYTES # (AUTO) 0.6 X 10^3 (0.0-1.0); MONOCYTES % (AUTO) 10 % (0-12); NEUTROPHILS # (AUTO) 3.2 X 10^3 (1.8-7.8); NEUTROPHILS % (AUTO) 54 % (42-75); PLATELET COUNT 383 10^3/uL (130-400); RED CELL DISTRIBUTION WIDTH 14.1 % (10.0-14.5)
[2019-09-28] MEDS: CATHETER FLUSH 10 ML SYR IV SCH ×3 (05:54→22:09)
[2019-09-28] MEDS: glyBURIDE 2.5 MG (MICRONASE) TAB PO SCH (05:54)
[2019-09-28 06:02] LABS: ALBUMIN 3.8 GM/DL (3.2-4.5)
[2019-09-28 06:07] LABS: BILIRUBIN,TOTAL 0.4 MG/DL (0.1-1.0)
[2019-09-28 06:09] LABS: CREATININE SERUM 1.33 MG/DL (0.60-1.30)
[2019-09-28 06:41] LABS: ATYPICAL LYMPHOCYTES 2 %; EOSINOPHILS % (MANUAL) 3 %; HYPOCHROMASIA SLIGHT; LYMPHOCYTES % (MANUAL) 29 %; MONOCYTES % (MANUAL) 15 %; NEUTROPHILS % (MANUAL) 51 %
--- NOTE | 2019-09-28 06:42 | PM&R Progress Note ---
Subjective HPI/CC On Admission Date Seen by Provider: Sep 28, 2019 Time Seen by Provider: 10:00 Subjective/Events-last exam Pt having a good day Voiding well Lasix IV will be transitioned to oral formulation per cardiology No pain is reported Didn't sleep real well last night Will DC telemetry since that is cardiology's recommendation to remain on for two days now that is completed Checked meds and labs Conferred wtih RN Reviewed therapy notes Review of Systems General: Malaise Pulmonary: Dyspnea Neurological: Weakness Objective Exam Vital Signs Vital Signs Date Time Temp Pulse Resp B/P (MAP) Pulse Ox O2 Delivery O2 Flow Rate FiO2 09/28/19 17:39 36.8 62 22 129/57 (81) 100 Nasal Cannula 2.00 09/25/19 14:22 28 Capillary Refill : Less Than 3 Seconds General Appearance: No Apparent Distress, WD/WN, Chronically ill, Obese HEENT: PERRL/EOMI, Normal ENT Inspection, Pharynx Normal Neck: Full Range of Motion, Normal Inspection, Non Tender, Supple, Carotid Bruit Respiratory: Chest Non Tender, Lungs Clear, Normal Breath Sounds, No Accessory Muscle Use, No Respiratory Distress Cardiovascular: Regular Rate, Rhythm, No Edema, No Gallop, No JVD, No Murmur, Normal Peripheral Pulses Gastrointestinal: Normal Bowel Sounds, No Organomegaly, No Pulsatile Mass, Non Tender, Soft Back: Normal Inspection, No CVA Tenderness, No Vertebral Tenderness Extremity: Normal Capillary Refill, Normal Inspection, Normal Range of Motion, Non Tender, No Calf Tenderness, No Pedal Edema Neurologic/Psychiatric: Alert, Oriented x3, No Motor/Sensory Deficits, Normal 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 FIM Transfers Therapy Code Descriptions/Definitions Functional [place] Measure: 0=Not Assessed/NA 4=Minimal Assistance 1=Total Assistance 5=Supervision or Setup 2=Maximal Assistance 6=Modified [place] 3=Moderate Assistance 7=Complete IndependenceSCALE: Activities may be completed with or without assistive devices. 8-Zmitbxajhl-bmmoybf completes the activity by him/herself with no assistance from a helper. 5-Set-up or Clean-up Assistance-helper sets up or cleans up; patient completes activity. [place] assists only prior to or following the activity. 4-Supervision or Touching Assistance-helper provides verbal cues and/or touching/steadying and/or contact guard assistance as patient completes activity. Assistance may be provided throughout the activity or intermittently. 3-Partial/Moderate Assistance-helper does LESS THAN HALF the effort. [place] lifts, holds or supports trunk or limbs, but provides less than half the effort. 2-Substantial/Maximal Assistance-helper does MORE THAN HALF the effort. [place] lifts or holds trunk or limbs and provides more than half the effort. 8-Ajlrovnjt-goazzr does ALL the effort. Patient does none of the effort to complete the activity. Or, the assistance of 2 or more helpers is required for the patient to complete the activity. If activity was not attempted, code reason: 7-Patient Refused. 9-Not Applicable-not attempted and the patient did not perform the activity before the current illness, exacerbation or injury. 10-Not Attempted due to Environmental Limitations-(lack of equipment, weather restraints, etc.). 88-Not Attempted due to Medical Conditions or Safety Concerns. Roll Left to Right (QC): 4 Sit to Lying (QC): 4 Sit to Stand (QC): 4 Chair/Uky-fr-Mhguo Xfer(QC): 4 Car Transfer (QC): 4 Gait Training Does the Patient Walk?: Yes Distance: 150 Walk 10 feet (QC): 4 Walk 50 ft with 2 Turns(QC): 5 Walk 150 ft (QC): 5 Walking 10ft/uneven surface-QC: 4 Gait Persons Needed: 1 Gait Assistive Device: FWW Wheelchair Training Does the Pt Use a Wheelchair?: No Wheel 50 ft with 2 turns (QC): 9 Wheel 150 ft (QC): 9 Stair Training #of Steps: 1 1 Step (curb) (QC): 4 4 Steps (QC): 88 12 Steps (QC): 88 Balance Picking up an Object (QC): 88 ADL-Treatment Eating (QC): 5 (per pt report, she has difficulty cutting some food and opening containers) Oral Hygiene (QC): 5 (Pt reports she completed task earlier this AM, sitting in a chair at the bathroom sink. Pt able to complete task after set up.) Shower/Bathe Self (QC): 3 (Pt able to wash all parts except BLE lower legs/feet, she is unable to reach them. CGA during stand at [facility] for pericare and buttocks, with cues for safety. ) Upper Body Dressing (QC): 4 (Pt able to doff gown, donning bra, tank top, and jacket. OT assisted pt with managing oxygen lines and telemetry lines.) Lower Body Dressing (QC): 4 (CGA during stand at [facility]. Pt able to thread LEs into pants/underwear and then manange up over hips in stance at [facility]) On/Off Footwear (QC): 3 (Pt able to doff socks, with donning pt was able to don gripper sock over her toes but required assistance pulling them over her heel) Toileting Hygiene (QC): 4 (CGA) Assessment/Plan Assessment and Plan Assess & Plan/Chief Complaint Assessment: Debility/myopathy from critical illness s/p acute exacerbation of congestive heart failure new onset New onset PAF CAD previous bypass DM HTN Severe arthritis Melena requiring DC Lovenox and ASA Hemorrhoids Hypokalemia Plan: Appreciate cardiology Wean oxygen Diuresis Home meds COVID swab negative IRF protocol Potassium 09/28/19: Wean oxygen DC Telemetry Lasix IV changed to PO per cardiology when they feel it's necessary Continue intensive therapy in order to go home to live independently (1) Respiratory distress (2) CAD (coronary artery disease) (3) Diabetes (4) Arthritis (5) Hypercapnia (6) Hyperlipidemia (7) Hypertension (8) BiPAP (biphasic positive airway pressure) dependence (9) Type 2 AMI (acute myocardial infarction) (10) Atrial fibrillation with rapid ventricular response (11) Hx of CABG (12) Acute heart failure Status: Acute (13) Melena (14) Anemia, iron deficiency KEILA MARTINEZ DO Sep 28, 2019 06:42
--- NOTE | 2019-09-28 08:35 | Occupational Ther Daily Note ---
OT Current Status-Daily Note Subjective Pt alert, sitting in recliner. Pt agrees to therapy. No c/o pain at this time. Mental Status/Objective Patient Orientation: Person, Place, Time, Situation Attachments: IV, Oxygen ADL-Treatment Pt declines shower, agrees to sponge bath. [employer] gathered supplies for sponge bath. Pt then completed own sponge bath sitting at sink. Completed oral care sitting at sink, mod I. After gathering clothing, pt able to don/doff pants and shirt by self. Pt educated on using production machine operator/dressing stick and sock aide to don/doff socks. Pt demonstrated understanding when using AE, continued practice needed to become proficient. After session, pt sitting in recliner with call light/phone in reach. All needs met in room. Therapy Code Descriptions/Definitions Functional [place] Measure: 0=Not Assessed/NA 4=Minimal Assistance 1=Total Assistance 5=Supervision or Setup 2=Maximal Assistance 6=Modified [place] 3=Moderate Assistance 7=Complete IndependenceSCALE: Activities may be completed with or without assistive devices. 2-Iuyvmjbirk-ybsppsw completes the activity by him/herself with no assistance from a helper. 5-Set-up or Clean-up Assistance-helper sets up or cleans up; patient completes activity. [place] assists only prior to or following the activity. 4-Supervision or Touching Assistance-helper provides verbal cues and/or touching/steadying and/or contact guard assistance as patient completes activity. Assistance may be provided throughout the activity or intermittently. 3-Partial/Moderate Assistance-helper does LESS THAN HALF the effort. [place] lifts, holds or supports trunk or limbs, but provides less than half the effort. 2-Substantial/Maximal Assistance-helper does MORE THAN HALF the effort. [place] lifts or holds trunk or limbs and provides more than half the effort. 7-Tqyckqkuj-qlorjx does ALL the effort. Patient does none of the effort to complete the activity. Or, the assistance of 2 or more helpers is required for the patient to complete the activity. If activity was not attempted, code reason: 7-Patient Refused. 9-Not Applicable-not attempted and the patient did not perform the activity before the current illness, exacerbation or injury. 10-Not Attempted due to Environmental Limitations-(lack of equipment, weather restraints, etc.). 88-Not Attempted due to Medical Conditions or Safety Concerns. Eating (QC): 6 (Pt able to complete own set up and use regular utensils to eat.) Oral Hygiene (QC): 6 Bathing Location: L Arm, R Arm, L Upper Leg, R Upper Leg, L Lower Leg (including foot), R Lower Leg (including foot), Chest, Abdomen, Buttocks, Perineal Area Shower/Bathe Self (QC): 5 Upper Body Dressing (QC): 5 Lower Body Dressing (QC): 5 On/Off Footwear: 4 Toileting Hygiene (QC): 6 (Pt able to complete own hygiene and clothing manipulation.) Toilet Transfer (QC): 4 (SBA for transfer using FWW and grabbars.) Other Treatment Educated pt on awareness of O2 tubing when ambulating or transferring. Education OT Patient Education: Modified ADL techniques, Rehab process, Transfer techniques, Use of adapted equipment Teaching Recipient: Patient Teaching Methods: Demonstration, Discussion Response to Teaching: Verbalize Understanding, Return Demonstration, Reinforcement Needed OT Route Sales Trainee Goals Route Sales Trainee Goals Time Frame: Oct 09, 2019 Eating (QC): 6 (met) Oral Hygiene (QC): 6 (met) Toileting Hygiene (QC): 6 Shower/Bathe Self (QC): 6 Upper Body Dressing (QC): 6 Lower Body Dressing (QC): 6 On/Off Footwear (QC): 6 1=Demonstrate adherence to instructed precautions during ADL tasks. 2=Patient will verbalize/demonstrate understanding of assistive devices/modifications for ADL. 3=Patient will improve strength/tolerance for activity to enable patient to perform ADL's. OT Education/Plan Problem List/Assessment Assessment: Decreased Activ Tolerance, Impaired Self-Care Skills Discharge Recommendations Plan/Recommendations: Continue POC Treatment Plan/Plan of Care Patient would benefit from OT for education, treatment and training to promote independence in ADL's, mobility, safety and/or upper extremity function for ADL's. Plan of Care: ADL Retraining, Functional Mobility, Orthotic Fitting/Training Treatment Duration: Oct 09, 2019 Frequency: At least 5 of 7 days/Wk (IRF) Estimated Hrs Per Day: 1.5 hours per day Agreement: Yes Rehab Potential: Fair Time/GCodes Start Time: 07:30 Stop Time: 08:30 Total Time Billed (hr/min): 60 Billed Treatment Time 1 visit-ADL 4 (60 min) DANAE CROW Sep 28, 2019 08:35
[2019-09-28 09:38] VITALS: BP 126/45
[2019-09-28] MEDS: FUROSEMIDE 40 MG/4 ML INJ (LASIX) IVP SCH (09:39)
[2019-09-28] MEDS: KCL 10 MEQ TAB (MICRO K) PO SCH ×2 (09:40→17:27)
[2019-09-28] MEDS: LORATADINE (CLARITIN) 10 MG TAB PO SCH ×2 (09:40→22:07)
[2019-09-28] MEDS: PANTOPRAZOLE 40 MG (PROTONIX) TAB PO SCH ×2 (09:40→22:08)
[2019-09-28] MEDS: meTOprolol SUCCINATE 100 MG (TOPROL XL) TAB PO SCH (09:40)
--- NOTE | 2019-09-28 09:46 | NUR ---
provided prayer and Communion.
[2019-09-28] MEDS: IRON SUCROSE 200 MG/10 ML (VENOFER) VIAL IV SCH (10:04)
[2019-09-28] MEDS: OXYMETAZOLINE (AFRIN) 0.05% NA 30 ML BTL SCH ×2 (10:04→22:07)
[2019-09-28] MEDS: polyethylene glycoL POWDER 17 GM (MIRALAX) PACK PO SCH ×2 (10:05→22:08)
[2019-09-28] MEDS: DOCUSATE SODIUM 100 MG (COLACE) CAP PO SCH ×2 (10:05→22:08)
[2019-09-28] MEDS: SENNA W/DOCUSATE (SENOKOT S) TABLET PO SCH ×2 (10:06→22:08)
--- NOTE | 2019-09-28 10:08 | NUR ---
Pt has been sitting up in recliner w legs elevated, up to B/R now w Ax1. Pt denies needs or c/o's.
--- NOTE | 2019-09-28 10:57 | Physical Therapy Daily Note ---
PT Daily Note-Current Subjective Pt. agreeable to Rx. No c/o pain or discomfort Mental Status Patient Orientation: Person, Place, Time Attachments: Oxygen (2) Transfers SCALE: Activities may be completed with or without assistive devices. 7-Moaribotpj-yehfibl completes the activity by him/herself with no assistance from a helper. 5-Set-up or Clean-up Assistance-helper sets up or cleans up; patient completes activity. [place] assists only prior to or following the activity. 4-Supervision or Touching Assistance-helper provides verbal cues and/or touching/steadying and/or contact guard assistance as patient completes activity. Assistance may be provided throughout the activity or intermittently. 3-Partial/Moderate Assistance-helper does LESS THAN HALF the effort. [place] lifts, holds or supports trunk or limbs, but provides less than half the effort. 2-Substantial/Maximal Assistance-helper does MORE THAN HALF the effort. [place] lifts or holds trunk or limbs and provides more than half the effort. 2-Ndbcdldul-eykjxp does ALL the effort. Patient does none of the effort to complete the activity. Or, the assistance of 2 or more helpers is required for the patient to complete the activity. If activity was not attempted, code reason: 7-Patient Refused. 9-Not Applicable-not attempted and the patient did not perform the activity before the current illness, exacerbation or injury. 10-Not Attempted due to Environmental Limitations-(lack of equipment, weather restraints, etc.). 88-Not Attempted due to Medical Conditions or Safety Concerns. Roll Left & Right (QC): 6 Sit to Lying (QC): 6 Lying to Sitting/Side of Bed(Q: 6 Sit to Stand (QC): 5 Toilet Transfer (QC): 5 Gait Training Does the Patient Walk?: Yes Distance: 200 Walk 10 feet (QC): 5 Walk 50 ft with 2 Turns(QC): 5 Walk 150 ft (QC): 5 Gait Assistive Device: FWW Exercises Supine Ex: Bridging, Ankle pumps, Quad Set, Rolling, Glut sets, Heel Slides, Straight leg raise, Hip abd/add Supine Reps: 15 Seated Therapy Exercises: Sit to stand, Kicking activity Seated Reps: 15 Treatments Pt uses restroom prior to amb to gym. Pt lays on mat SBA and performs supine exercises. Pt performs rolling on mat SBA needing VC to roll completely onto side. Pt amb back into room to use restroom SBA. Pt returns to recliner and performs seated exercises. Pt left in recliner with all needs met, call light in hand. Assessment Current Status: Good Progress Pt required frequent rest breaks during exercises. Pt had no LOB or c/o being tired with amb. During exercises, pt would become confused as to which exercise we were performing. PT Short Term Goals Short Term Goals Time Frame: Oct 02, 2019 Roll Left & Right: 5 Sit to lyin Lying to sitting on side of be: 5 Sit to stand: 5 Chair/bzz-cf-opqwl transfer: 5 Walk 10 feet: 4 Walk 50 feet with two turns: 4 Walk 150 feet: 4 PT Mcfp Goals Mcfp Goals PT Rim Technician Goals Time Frame: Oct 16, 2019 Roll Left & Right (QC): 6 Sit to Lying (QC): 6 Lying-Sitting on Side/Bed(QC): 6 Sit to Stand (QC): 6 Chair/Ben-ny-Djolg Xfer(QC): 6 Toilet Transfer (QC): 6 Car Transfer (QC): 6 Does the Patient Walk: Yes Walk 10 feet (QC): 6 Walk 50ft with 2 Turns (QC): 6 Walk 150 ft (QC): 6 Walking 10ft on Uneven Surface: 6 1 Step (curb) (QC): 4 4 Steps (QC): 4 12 Steps (QC): 88 Picking up an Object (QC): 88 Does the Pt use WC or Scooter?: No Wheel 50 feet with 2 turns (QC: 9 Wheel 150 feet: 9 PT Plan Problem List Problem List: Activity Tolerance, Functional Strength, Safety Treatment/Plan Treatment Plan: Continue Plan of Care Treatment Plan: Bed Mobility, Education, Functional Activity Chip, Functional Strength, Group Therapy, Gait, Safety, Therapeutic Exercise, Transfers Treatment Duration: Oct 16, 2019 Frequency: At least 5 of 7 days/Wk (IRF) Estimated Hrs Per Day: 1.5 hours per day Patient and/or Family Agrees t: Yes Safety Risks/Education Patient Education: Gait Training, Correct Positioning, Safety Issues Teaching Recipient: Patient Teaching Methods: Demonstration, Discussion Response to Teaching: Return Demonstration, Reinforcement Needed Time/GCodes Time In: 1000 Time Out: 1100 Total Billed Treatment Time: 60 Total Billed Treatment 1, FA x2 (30m), EX x2 (30m) LUEBBER, IRINEO A FLAT EXAMINER Sep 28, 2019 10:57
--- NOTE | 2019-09-28 11:51 | Occupational Ther Daily Note ---
OT Current Status-Daily Note Subjective Pt alert, sitting in recliner. Nrsg in room. Pt agrees to therapy. No c/o pain at this time. Monitored pt's O2 sat throughout session. Mental Status/Objective Patient Orientation: Person, Place, Time, Situation Attachments: IV, Oxygen ADL-Treatment Therapy Code Descriptions/Definitions Functional [place] Measure: 0=Not Assessed/NA 4=Minimal Assistance 1=Total Assistance 5=Supervision or Setup 2=Maximal Assistance 6=Modified [place] 3=Moderate Assistance 7=Complete IndependenceSCALE: Activities may be completed with or without assistive devices. 1-Wiicjeedyh-omlkxsk completes the activity by him/herself with no assistance from a helper. 5-Set-up or Clean-up Assistance-helper sets up or cleans up; patient completes activity. [place] assists only prior to or following the activity. 4-Supervision or Touching Assistance-helper provides verbal cues and/or touching/steadying and/or contact guard assistance as patient completes activity. Assistance may be provided throughout the activity or intermittently. 3-Partial/Moderate Assistance-helper does LESS THAN HALF the effort. [place] lifts, holds or supports trunk or limbs, but provides less than half the effort. 2-Substantial/Maximal Assistance-helper does MORE THAN HALF the effort. [place] lifts or holds trunk or limbs and provides more than half the effort. 1-Xumiuhfkc-xexcjx does ALL the effort. Patient does none of the effort to co mplete the activity. Or, the assistance of 2 or more helpers is required for the patient to complete the activity. If activity was not attempted, code reason: 7-Patient Refused. 9-Not Applicable-not attempted and the patient did not perform the activity before the current illness, exacerbation or injury. 10-Not Attempted due to Environmental Limitations-(lack of equipment, weather restraints, etc.). 88-Not Attempted due to Medical Conditions or Safety Concerns. Toileting Hygiene (QC): 6 (Pt able to manipulate clothing without stabilizing with FWW or grabbars. Cleanses self sitting on toilet.) Toilet Transfer (QC): 6 (Using grabbars and FWW for transfer.) Other Treatment Skilled instruction for B UE theraband exercises using light resistance theraband for correct technique on positioning and breathing. Pt initially was holding breath with exercise and O2 sats were at 85%, when pt began to breath properly through exercises O2 sats at 94%. Pt completed B shldr exercises 2 sets 5 reps due to fatigue, weakness then bicep/tricep exercises 2 sets 10 reps. After session, pt sitting in recliner with call light/phone in reach. All needs met in room. OT Senior Care Goals Felting Machine Operator Goals Time Frame: Oct 09, 2019 Eating (QC): 6 (met) Oral Hygiene (QC): 6 (met) Toileting Hygiene (QC): 6 Shower/Bathe Self (QC): 6 Upper Body Dressing (QC): 6 Lower Body Dressing (QC): 6 On/Off Footwear (QC): 6 1=Demonstrate adherence to instructed precautions during ADL tasks. 2=Patient will verbalize/demonstrate understanding of assistive devices/modifications for ADL. 3=Patient will improve strength/tolerance for activity to enable patient to perform ADL's. OT Education/Plan Problem List/Assessment Assessment: Decreased Activ Tolerance, Decreased UE Strength Discharge Recommendations Plan/Recommendations: Continue POC Treatment Plan/Plan of Care Patient would benefit from OT for education, treatment and training to promote independence in ADL's, mobility, safety and/or upper extremity function for ADL's. Plan of Care: ADL Retraining, Functional Mobility, Orthotic Fitting/Training Treatment Duration: Oct 09, 2019 Frequency: At least 5 of 7 days/Wk (IRF) Estimated Hrs Per Day: 1.5 hours per day Agreement: Yes Rehab Potential: Fair Time/GCodes Start Time: 11:20 Stop Time: 11:50 Total Time Billed (hr/min): 30 Billed Treatment Time 1 visit-EX 1 (20 min) ADL 1 (10 min) DANAE CROW Sep 28, 2019 11:51
--- NOTE | 2019-09-28 13:16 | NUR ---
CM/SS ADMISSION Patient was admitted to ARU 09/25/19 from [facility] for debility/myopathy from critical illness with hypoxia and new onset CHF, AFIB, and anemia (iron deficiency). Additional comorbidities are, in part, CAD (hx CABG), DM, HTN, arthritis, BiPAP dependence, type 2 AMI, melena. Patient resides home alone and wishes to return there when able. She indicates she was independent and driving prior to this onset of illness and does reflect insight that she is more dependent at this time. Patient has one son and his family, she indicates they are busy and likely not available for routine supplemental assistance. She explored resources with internal communications writer regarding in-home assistance but appeared reluctant to pay per hour for this service. Patient remains undecided at this time for paid help at home, will continue to follow her progress and her maximum level of functioning closer to discharge. Appropriate resource information will be provided for patient to review and refer back to. [facility] [place], [place] INSURANCE: Medicare, [employer] [facility] Supplement DME: Patient has 4WW that she uses especially at night, multiple canes (standard, pronged, etc). EMR reflects patient is BiPAP dependent, will clarify if she has this at home. Needs grab bars in shower area, options discussed. On O2 now and will monitor for this to continue for home use. BARRIERS TO DISCHARGE PLANNING: Patient resides home alone, advanced age, declined health from previous status. Patient appears reluctant to reach out to her son and family for supplemental assist, also reluctant regarding average hourly rate for in-home assistance. Discussed [facility], patient more interested in someone to run errands for her and help around the house. CONTACTS: Dejuan Babb, Son [address] [place] [address] Patient also mentioned her daughter in law and 3 grandsons. She shared that her grandsons all work at [employer] and do not have a lot of available time. Patient understood the purpose and process for the weekly patient care conference and that her first review would be 09/30/19.
--- NOTE | 2019-09-28 13:30 | Physical Therapy Daily Note ---
PT Daily Note-Current Subjective Patient agrees to PT. No c/o. Patient has had O2 off x 20 min and SAO2 94% RA. Mental Status Patient Orientation: Normal For Age Attachments: Oxygen Transfers SCALE: Activities may be completed with or without assistive devices. 0-Qvfpiagkbq-lffbjys completes the activity by him/herself with no assistance from a helper. 5-Set-up or Clean-up Assistance-helper sets up or cleans up; patient completes activity. [place] assists only prior to or following the activity. 4-Supervision or Touching Assistance-helper provides verbal cues and/or touching/steadying and/or contact guard assistance as patient completes activity. Assistance may be provided throughout the activity or intermittently. 3-Partial/Moderate Assistance-helper does LESS THAN HALF the effort. [place] lifts, holds or supports trunk or limbs, but provides less than half the effort. 2-Substantial/Maximal Assistance-helper does MORE THAN HALF the effort. [place] lifts or holds trunk or limbs and provides more than half the effort. 1-Mxbyamtun-xctarg does ALL the effort. Patient does none of the effort to complete the activity. Or, the assistance of 2 or more helpers is required for the patient to complete the activity. If activity was not attempted, code reason: 7-Patient Refused. 9-Not Applicable-not attempted and the patient did not perform the activity before the current illness, exacerbation or injury. 10-Not Attempted due to Environmental Limitations-(lack of equipment, weather restraints, etc.). 88-Not Attempted due to Medical Conditions or Safety Concerns. Chair/Bth-hg-Scgrq Xfer(QC): 5 Gait Training Does the Patient Walk?: Yes Distance: 150' x 4 Walk 10 feet (QC): 5 Walk 50 ft with 2 Turns(QC): 5 Walk 150 ft (QC): 5 Gait Assistive Device: FWW safe and functional with no deviation Exercises Seated Therapy Exercises: Ankle pumps, Long arc quads, Hip flexion Seated Reps: 15 (3 sets) Assessment Patient tolerated treatment well and SAO2 remained >90% on RA during treatment session. PT to increase activity as tolerated by patient. PT Short Term Goals Short Term Goals Time Frame: Oct 02, 2019 Roll Left & Right: 5 Sit to lyin Lying to sitting on side of be: 5 Sit to stand: 5 Chair/vcw-bf-ujutx transfer: 5 Walk 10 feet: 4 Walk 50 feet with two turns: 4 Walk 150 feet: 4 PT Snf Goals Snf Goals PT Rug Cleaning Supervisor Goals Time Frame: Oct 16, 2019 Roll Left & Right (QC): 6 Sit to Lying (QC): 6 Lying-Sitting on Side/Bed(QC): 6 Sit to Stand (QC): 6 Chair/Iur-us-Zmdrj Xfer(QC): 6 Toilet Transfer (QC): 6 Car Transfer (QC): 6 Does the Patient Walk: Yes Walk 10 feet (QC): 6 Walk 50ft with 2 Turns (QC): 6 Walk 150 ft (QC): 6 Walking 10ft on Uneven Surface: 6 1 Step (curb) (QC): 4 4 Steps (QC): 4 12 Steps (QC): 88 Picking up an Object (QC): 88 Does the Pt use WC or Scooter?: No Wheel 50 feet with 2 turns (QC: 9 Wheel 150 feet: 9 PT Plan Treatment/Plan Treatment Plan: Continue Plan of Care Treatment Plan: Bed Mobility, Education, Functional Activity Chip, Functional Strength, Group Therapy, Gait, Safety, Therapeutic Exercise, Transfers Treatment Duration: Oct 16, 2019 Frequency: At least 5 of 7 days/Wk (IRF) Estimated Hrs Per Day: 1.5 hours per day Patient and/or Family Agrees t: Yes Time/GCodes Time In: 1255 Time Out: 1325 Total Billed Treatment Time: 30 Total Billed Treatment 1 visit EX 16 min FA 14 min SHIRA MCKAY PT Sep 28, 2019 13:30
--- NOTE | 2019-09-28 14:23 | Cardiology Progress Note ---
Cardiology SOAP Progress Note Subjective: No cardiac complaints. Objective: I&O/Vital Signs 09/28/19 09/28/19 09/28/19 09/28/19 05:06 06:43 07:00 09:36 Temp 36.4 Pulse 66 67 Resp 18 B/P (MAP) 124/57 (79) Pulse Ox 96 O2 Delivery Room Air Nasal Cannula Nasal Cannula O2 Flow Rate 2.00 2.00 09/28/19 09:38 Pulse 65 Resp 20 B/P (MAP) 126/45 (72) Pulse Ox 99 O2 Delivery Nasal Cannula O2 Flow Rate 2.00 09/28/19 00:00 Intake Total 1050 ml Balance 1050 ml Constitutional: AAO x 3 Respiratory: chest is bilaterally symmetric, lungs clear to auscultation Cardiovascular: regular rate-rhythm, S1 and S2; No diastolic murmur, No systolic murmur Gastrointestional: soft, audible bowel sounds Extremities: normal range of motion, non-tender, normal inspection, no lower extremity edema bilateral Neurologic/Psychiatric: no motor/sensory deficits, alert, normal mood/affect, o riented x 3 Skin: normal color, warm/dry Results/Procedures: Labs Laboratory Tests 09/28/19 05:40: White Blood Count 6.0, Red Blood Count 3.22L, Hemoglobin 9.4L, Hematocrit 30L, Mean Corpuscular Volume 93, Mean Corpuscular Hemoglobin 29, Mean Corpuscular Hemoglobin Concent 32, Red Cell Distribution Width 14.1, Platelet Count 383, Mean Platelet Volume 9.8, Neutrophils (%) (Auto) 54, Lymphocytes (%) (Auto) 33, Monocytes (%) (Auto) 10, Eosinophils (%) (Auto) 3, Basophils (%) (Auto) 1, Neutrophils # (Auto) 3.2, Lymphocytes # (Auto) 2.0, Monocytes # (Auto) 0.6, Eosinophils # (Auto) 0.2, Basophils # (Auto) 0.0, Neutrophils % (Manual) 51, Lymphocytes % (Manual) 29, Monocytes % (Manual) 15, Eosinophils % (Manual) 3, Atypical Lymphocytes 2, Hypochromasia SLIGHT, Sodium Level 144, Potassium Level 4.0, Chloride Level 102, Carbon Dioxide Level 30, Anion Gap 12, Blood Urea Nitrogen 49H, Creatinine 1.33H, Estimat Glomerular Filtration Rate 38, BUN/Creatinine Ratio 37, Glucose Level 166H, Calcium Level 9.0, Corrected Calcium 9.2, Total Bilirubin 0.4, Aspartate Amino Transf (AST/SGOT) 17, Alanine Aminotransferase (ALT/SGPT) 33, Alkaline Phosphatase 57, Total Protein 7.0, Albumin 3.8 A/P: Assessment/Dx: Acute respiratory failure Congestive heart failure Coronary artery disease Hypertension Paroxysmal atrial fibrillation with RVR Plan: Status post acute respiratory failure was previously on Vapotherm, resolved, breathing better responded well to diuretics. Currently in inpatient rehabilitation. Acute diastolic Congestive heart failure, acute probably left ventricular systolic dysfunction ischemic in nature; resolved. Restart home medication monitor. Echocardiogram shows normal LV function with LVH. Non-STEMI, Coronary artery disease history of CABG in 2010 using COLES to LAD, vein graft to the right coronary artery and vein graft to the circumflex artery, nor recent cardiac workup. Upward trend of troponin. Plaque rupture cannot be ruled out. I discussed at length with the patient but she refused coronary gerardo ography. She understands that she could have recurrent SC or in the future. However she does not want coronary angiography. Paroxysmal atrial fibrillation with RVR, patient refused oral anticoagulation. She understands the risk of stroke. Continue aspirin and Plavix. Patient converted to sinus rhythm. Continue beta blockers. Stable rhythm. History of chest pain in the past, no recent episodes of chest pain Hypertension, resume home medication monitor blood pressure Hyperlipidemia, evaluate lipid profile and resume home medication Diabetes mellitus, followed and managed by primary care physician Dr. Monk to take over cardiology service tomorrow. Thank you for your consultation. Please call me if you have any questions. Jessica Locke MD, FACP, FACC, FSCAI, FHRS, CCDS Interventional Cardiology Cardiac Electrophysiology Vascular Medicine and Endovascular Interventions Celine LOCKE MD Sep 28, 2019 14:23
--- NOTE | 2019-09-28 15:11 | NUR ---
"RD ASSESSMENT PMHx: DM; HTN; CHF; CAD; CA(ovarian) PT INTERACTION: Pt was awake and pleasant during nutrition follow-up. Pt states she has been eating well since last assessment. Note avg PO intake >75% x2d, per chart review. Pt states no issues with nausea or vomiting. Pt states some issues with constipation and diarrhea. Note last BM was 09/27 and pt currently on bowel regimen of colace BID; senna BID; and miralax BID, per chart review. ABNORMAL NUTRITION-RELATED LAB VALUES LOW: HIGH: BUN 49; cr 1.33; glu 166 Est. kcal needs: 1300 kcal | 15 kcal/kg Est. Pro needs: 69 g Pro | 0.8 g Pro/kg PES STATEMENT: Given current appetite and PO intake, no nutrition diagnosis at this time (NO-1.1) INTERVENTION: Continue with current diet order of CHO 60g/m 3snack diet. Will continue to follow and reassess as pt needs, intake, and status change. MONITOR/EVALUATE: PO Intake; Plan of Care; Hydration Status; Weight Status; Lab Values Denise Disla, MS, RD, LD"
--- NOTE | 2019-09-28 17:38 | NUR ---
Pt states that she needs a softer diet w ground meat d/t missing several of her teeth, & the meat is tough at times.
[2019-09-28 17:39] VITALS: BP 129/57
--- NOTE | 2019-09-28 19:53 | NUR ---
Dr. Yung had asked for nsg to check w Court Interpreter regarding how long he wanted pt to remain on IV form of Lasix ? Dr. Locke ordered to switch from IV to po form.
--- NOTE | 2019-09-28 20:08 | NUR ---
Pt expressed concerns about what she was going to do when she went home. Stated that she hated to bother her family, or burden them w helping her. Discussed w pt [facility] nurse, PT, bath aide, as options. Also discussed [employer] services/keeping her cell phone on person, or at least within reach at all times when home. Pt states that she receives Meals on Wheels, & that is a help. Pt reported that the information was helpful.
--- NOTE | 2019-09-28 20:19 | NUR ---
Pt had also mentioned that she had gotten the news that her nephew had . Pt states, "it was expected, but, it still makes me sad."
[2019-09-28] MEDS: MELATONIN 3 MG TABLET PO PRN (22:07)
[2019-09-29 06:06] VITALS: BP 158/68
[2019-09-29] MEDS: CATHETER FLUSH 10 ML SYR IV SCH ×3 (06:34→21:24)
[2019-09-29] MEDS: glyBURIDE 2.5 MG (MICRONASE) TAB PO SCH (06:34)
[2019-09-29 08:30] VITALS: BP 137/63
[2019-09-29] MEDS: KCL 10 MEQ TAB (MICRO K) PO SCH ×2 (08:33→17:52)
[2019-09-29] MEDS: PANTOPRAZOLE 40 MG (PROTONIX) TAB PO SCH ×2 (08:34→20:30)
[2019-09-29] MEDS: meTOprolol SUCCINATE 100 MG (TOPROL XL) TAB PO SCH (08:34)
[2019-09-29] MEDS: LORATADINE (CLARITIN) 10 MG TAB PO SCH ×2 (08:34→20:30)
[2019-09-29] MEDS: FUROSEMIDE 40 MG (LASIX) TAB PO SCH (08:34)
--- NOTE | 2019-09-29 08:35 | NUR ---
Pt will need [facility]HC RN at discharge for med education re: Isadora, states that she hasn't taken it before. Also for CHF education/prevention of exacerbation.
[2019-09-29] MEDS: OXYMETAZOLINE (AFRIN) 0.05% NA 30 ML BTL SCH ×2 (08:38→20:30)
[2019-09-29] MEDS: SENNA W/DOCUSATE (SENOKOT S) TABLET PO SCH ×2 (08:48→20:30)
[2019-09-29] MEDS: DOCUSATE SODIUM 100 MG (COLACE) CAP PO SCH ×2 (08:48→20:30)
--- NOTE | 2019-09-29 09:32 | PM&R Progress Note ---
Subjective HPI/CC On Admission Date Seen by Provider: Sep 29, 2019 Time Seen by Provider: 09:30 Subjective/Events-last exam Will DC the IV in her left antecubital region because it is uncomfortable after one last dose of iron given Lasix IV will be changed to PO Doing very well on room air and off oxygen completely Slept in her recliner as she usually does at home Toenails need care so will reach out to Dr. Li Overall much improved Checked meds and labs Conferred wtih RN Reviewed therapy notes Review of Systems General: Fatigue, Malaise Objective Exam Vital Signs Vital Signs Date Time Temp Pulse Resp B/P (MAP) Pulse Ox O2 Delivery O2 Flow Rate FiO2 09/29/19 16:25 36.2 66 20 138/68 (91) 98 Room Air 09/29/19 15:41 21 09/28/19 17:39 2.00 Capillary Refill : Less Than 3 Seconds General Appearance: No Apparent Distress, WD/WN, Chronically ill, Obese HEENT: PERRL/EOMI, Normal ENT Inspection, Pharynx Normal Neck: Full Range of Motion, Normal Inspection, Non Tender, Supple, Carotid Bruit Respiratory: Chest Non Tender, Lungs Clear, Normal Breath Sounds, No Accessory Muscle Use, No Respiratory Distress Cardiovascular: Regular Rate, Rhythm, No Edema, No Gallop, No JVD, No Murmur, Normal Peripheral Pulses Gastrointestinal: Normal Bowel Sounds, No Organomegaly, No Pulsatile Mass, Non Tender, Soft Back: Normal Inspection, No CVA Tenderness, No Vertebral Tenderness Extremity: Normal Capillary Refill, Normal Inspection, Normal Range of Motion, Non Tender, No Calf Tenderness, No Pedal Edema Neurologic/Psychiatric: Alert, Oriented x3, No Motor/Sensory Deficits, Normal Mood/Affect, reactor fueling supervisor II-XII Norm as Tested, Motor Weakness (generalized extremities) Skin: Normal Color, Warm/Dry Lymphatic: No Adenopathy Results/Procedures Lab Patient resulted labs reviewed. FIM Transfers Therapy Code Descriptions/Definitions Functional [place] Measure: 0=Not Assessed/NA 4=Minimal Assistance 1=Total Assistance 5=Supervision or Setup 2=Maximal Assistance 6=Modified [place] 3=Moderate Assistance 7=Complete IndependenceSCALE: Activities may be completed with or without assistive devices. 4-Nwcajvkydp-dsiydfk completes the activity by him/herself with no assistance from a helper. 5-Set-up or Clean-up Assistance-helper sets up or cleans up; patient completes activity. [place] assists only prior to or following the activity. 4-Supervision or Touching Assistance-helper provides verbal cues and/or touching/steadying and/or contact guard assistance as patient completes activity. Assistance may be provided throughout the activity or intermittently. 3-Partial/Moderate Assistance-helper does LESS THAN HALF the effort. [place] lifts, holds or supports trunk or limbs, but provides less than half the effort. 2-Substantial/Maximal Assistance-helper does MORE THAN HALF the effort. [place] lifts or holds trunk or limbs and provides more than half the effort. 8-Lrvjjxgfe-xvfkbe does ALL the effort. Patient does none of the effort to complete the activity. Or, the assistance of 2 or more helpers is required for the patient to complete the activity. If activity was not attempted, code reason: 7-Patient Refused. 9-Not Applicable-not attempted and the patient did not perform the activity before the current illness, exacerbation or injury. 10-Not Attempted due to Environmental Limitations-(lack of equipment, weather restraints, etc.). 88-Not Attempted due to Medical Conditions or Safety Concerns. Roll Left to Right (QC): 6 Sit to Lying (QC): 6 Sit to Stand (QC): 5 Chair/Zwx-kc-Bodxc Xfer(QC): 5 Car Transfer (QC): 4 Gait Training Does the Patient Walk?: Yes Distance: 150' x 4 Walk 10 feet (QC): 5 Walk 50 ft with 2 Turns(QC): 5 Walk 150 ft (QC): 5 Walking 10ft/uneven surface-QC: 4 Gait Persons Needed: 1 Gait Assistive Device: FWW Wheelchair Training Does the Pt Use a Wheelchair?: No Wheel 50 ft with 2 turns (QC): 9 Wheel 150 ft (QC): 9 Stair Training #of Steps: 1 1 Step (curb) (QC): 4 4 Steps (QC): 88 12 Steps (QC): 88 Balance Picking up an Object (QC): 88 ADL-Treatment Eating (QC): 6 (Pt able to complete own set up and use regular utensils to eat.) Oral Hygiene (QC): 6 Bathing Location: L Arm, R Arm, L Upper Leg, R Upper Leg, L Lower Leg (including foot), R Lower Leg (including foot), Chest, Abdomen, Buttocks, Perineal Area Shower/Bathe Self (QC): 5 Upper Body Dressing (QC): 5 Lower Body Dressing (QC): 5 On/Off Footwear (QC): 4 Toileting Hygiene (QC): 6 (Pt able to manipulate clothing without stabilizing with FWW or grabbars. Cleanses self sitting on toilet.) Toilet Transfer (QC): 6 (Using grabbars and FWW for transfer.) Assessment/Plan Assessment and Plan Assess & Plan/Chief Complaint Assessment: Debility/myopathy from critical illness s/p acute exacerbation of congestive heart failure new onset New onset PAF CAD previous bypass DM HTN Severe arthritis Melena requiring DC Lovenox and ASA Hemorrhoids Hypokalemia Plan: Appreciate cardiology Wean oxygen Diuresis Home meds COVID swab negative IRF protocol Potassium 09/28/19: Wean oxygen DC Telemetry Lasix IV changed to PO per cardiology when they feel it's necessary Continue intensive therapy in order to go home to live independently 09/29/19: Weaned off O2 Continue intensive therapy One more iron infusion today then we will discontinue the heplock since its in a bad place in the left antecubital Evaluate disposition at team meeting tomorrow (1) Respiratory distress (2) CAD (coronary artery disease) (3) Diabetes (4) Arthritis (5) Hypercapnia (6) Hyperlipidemia (7) Hypertension (8) BiPAP (biphasic positive airway pressure) dependence (9) Type 2 AMI (acute myocardial infarction) (10) Atrial fibrillation with rapid ventricular response (11) Hx of CABG (12) Acute heart failure Status: Acute (13) Melena (14) Anemia, iron deficiency KEILA MARTINEZ DO Sep 29, 2019 09:32
--- NOTE | 2019-09-29 09:55 | Occupational Ther Daily Note ---
OT Current Status-Daily Note Subjective Pt alert, sitting in recliner. Pt agrees to therapy. No c/o pain at this time. Mental Status/Objective Patient Orientation: Person, Place, Time, Situation Attachments: IV ADL-Treatment Pt agrees to shower. Pt ambulated to bathroom and transferred to toilet, mod I. Completed toileting hygiene and clothing manipulation, mod I. Transferred to shower, mod I using FWW, grabbars and shower bench. Completed shower mod I using shower bench, grabbars, hand held shower. Pt sat at sink to complete own grooming. Pt able to don/doff upper/lower body clothing by self after set up. Pt requires more education to use AE to don socks, able to doff socks using dressing stick. Pt takes increased time to complete tasks due to multiple recovery breaks throughout session. After session, PT took over care. All needs met in room. Therapy Code Descriptions/Definitions Functional [place] Measure: 0=Not Assessed/NA 4=Minimal Assistance 1=Total Assistance 5=Supervision or Setup 2=Maximal Assistance 6=Modified [place] 3=Moderate Assistance 7=Complete IndependenceSCALE: Activities may be completed with or without assistive devices. 2-Rqqurvgnts-nquwond completes the activity by him/herself with no assistance from a helper. 5-Set-up or Clean-up Assistance-helper sets up or cleans up; patient completes activity. [place] assists only prior to or following the activity. 4-Supervision or Touching Assistance-helper provides verbal cues and/or touching/steadying and/or contact guard assistance as patient completes activity. Assistance may be provided throughout the activity or intermittently. 3-Partial/Moderate Assistance-helper does LESS THAN HALF the effort. [place] lifts, holds or supports trunk or limbs, but provides less than half the effort. 2-Substantial/Maximal Assistance-helper does MORE THAN HALF the effort. [place] lifts or holds trunk or limbs and provides more than half the effort. 3-Gkuveuyos-agdxsr does ALL the effort. Patient does none of the effort to complete the activity. Or, the assistance of 2 or more helpers is required for the patient to complete the activity. If activity was not attempted, code reason: 7-Patient Refused. 9-Not Applicable-not attempted and the patient did not perform the activity before the current illness, exacerbation or injury. 10-Not Attempted due to Environmental Limitations-(lack of equipment, weather restraints, etc.). 88-Not Attempted due to Medical Conditions or Safety Concerns. Oral Hygiene (QC): 6 Bathing Location: L Arm, R Arm, L Upper Leg, R Upper Leg, L Lower Leg (including foot), R Lower Leg (including foot), Chest, Abdomen, Buttocks, Perineal Area Shower/Bathe Self (QC): 6 Upper Body Dressing (QC): 5 Lower Body Dressing (QC): 5 On/Off Footwear: 4 Toileting Hygiene (QC): 6 Toilet Transfer (QC): 6 OT Prison Goals Prison Goals Time Frame: Oct 09, 2019 Eating (QC): 6 (met) Oral Hygiene (QC): 6 (met) Toileting Hygiene (QC): 6 (met) Shower/Bathe Self (QC): 6 (met) Upper Body Dressing (QC): 6 Lower Body Dressing (QC): 6 On/Off Footwear (QC): 6 1=Demonstrate adherence to instructed precautions during ADL tasks. 2=Patient will verbalize/demonstrate understanding of assistive devices/modifications for ADL. 3=Patient will improve strength/tolerance for activity to enable patient to perform ADL's. OT Education/Plan Problem List/Assessment Assessment: Decreased Activ Tolerance, Decreased UE Strength, Impaired Self- Care Skills Discharge Recommendations Plan/Recommendations: Continue POC Treatment Plan/Plan of Care Patient would benefit from OT for education, treatment and training to promote independence in ADL's, mobility, safety and/or upper extremity function for ADL's. Plan of Care: ADL Retraining, Functional Mobility, Orthotic Fitting/Training Treatment Duration: Oct 09, 2019 Frequency: At least 5 of 7 days/Wk (IRF) Estimated Hrs Per Day: 1.5 hours per day Agreement: Yes Rehab Potential: Fair Time/GCodes Start Time: 09:00 Stop Time: 10:15 Total Time Billed (hr/min): 75 Billed Treatment Time 1 visit-ADL 5 (75 min) DANAE CROW Sep 29, 2019 09:55
[2019-09-29] MEDS: polyethylene glycoL POWDER 17 GM (MIRALAX) PACK PO SCH ×2 (09:56→20:30)
[2019-09-29] MEDS ORDERED: IRON SUCROSE 200 MG/10 ML (VENOFER) VIAL IV NR (10:00)
--- NOTE | 2019-09-29 11:13 | Physical Therapy Daily Note ---
PT Daily Note-Current Subjective Pt in room upon arrival and agrees to tx. Pt states her UE feel weak after use of NuStep Mental Status Patient Orientation: Person, Place, Time, Situation Transfers SCALE: Activities may be completed with or without assistive devices. 0-Wwyuylutmx-lhixdse completes the activity by him/herself with no assistance from a helper. 5-Set-up or Clean-up Assistance-helper sets up or cleans up; patient completes activity. [place] assists only prior to or following the activity. 4-Supervision or Touching Assistance-helper provides verbal cues and/or touching/steadying and/or contact guard assistance as patient completes activity. Assistance may be provided throughout the activity or intermittently. 3-Partial/Moderate Assistance-helper does LESS THAN HALF the effort. [place] lifts, holds or supports trunk or limbs, but provides less than half the effort. 2-Substantial/Maximal Assistance-helper does MORE THAN HALF the effort. [place] lifts or holds trunk or limbs and provides more than half the effort. 7-Rlpttrhnl-azqbiv does ALL the effort. Patient does none of the effort to complete the activity. Or, the assistance of 2 or more helpers is required for the patient to complete the activity. If activity was not attempted, code reason: 7-Patient Refused. 9-Not Applicable-not attempted and the patient did not perform the activity before the current illness, exacerbation or injury. 10-Not Attempted due to Environmental Limitations-(lack of equipment, weather restraints, etc.). 88-Not Attempted due to Medical Conditions or Safety Concerns. Sit to Stand (QC): 6 Chair/Cbl-ei-Dnfmz Xfer(QC): 6 Toilet Transfer (QC): 6 Pt is now Ad Ofelia in room with use of FWW. Gait Training Does the Patient Walk?: Yes Distance: 400 Walk 10 feet (QC): 6 Walk 50 ft with 2 Turns(QC): 6 Walk 150 ft (QC): 6 Gait Persons Needed: 1 Gait Assistive Device: FWW Pt has shuffling gait, keeps head down. Pt needs VC to keep FWW close to her. Exercises NuStep Minutes: 15 NuStep Workload: 4 Treatments Pt performs dynamic standing balance while dressing. Pt performs Molina test, scoring 40/56. Pt required to use FWW at all times. Pt was unable to perform alternating step ups and unilateral stance portions of test. Pt amb to gym and performs NuStep for 15mins followed by amb on unit. Pt returns to recliner and was left with all needs met, call light in hand. Assessment Current Status: Good Progress Pt easily fatigues throughout tx needing rest breaks. Pt has poor balance requiring a FWW at all times. Pt is now ad ofelia in room with use of FWW only. PT Short Term Goals Short Term Goals Time Frame: Oct 02, 2019 Roll Left & Right: 5 Sit to lyin Lying to sitting on side of be: 5 Sit to stand: 5 Chair/wke-gw-beblt transfer: 5 Walk 10 feet: 4 Walk 50 feet with two turns: 4 Walk 150 feet: 4 PT Manager [employer] Goals Manager [employer] Goals PT Halfway Goals Time Frame: Oct 16, 2019 Roll Left & Right (QC): 6 Sit to Lying (QC): 6 Lying-Sitting on Side/Bed(QC): 6 Sit to Stand (QC): 6 Chair/Imj-ch-Yrgyj Xfer(QC): 6 Toilet Transfer (QC): 6 Car Transfer (QC): 6 Does the Patient Walk: Yes Walk 10 feet (QC): 6 Walk 50ft with 2 Turns (QC): 6 Walk 150 ft (QC): 6 Walking 10ft on Uneven Surface: 6 1 Step (curb) (QC): 4 4 Steps (QC): 4 12 Steps (QC): 88 Picking up an Object (QC): 88 Does the Pt use WC or Scooter?: No Wheel 50 feet with 2 turns (QC: 9 Wheel 150 feet: 9 PT Plan Problem List Problem List: Activity Tolerance, Safety, Balance Treatment/Plan Treatment Plan: Continue Plan of Care Treatment Plan: Bed Mobility, Education, Functional Activity Chip, Functional Strength, Group Therapy, Gait, Safety, Therapeutic Exercise, Transfers Treatment Duration: Oct 16, 2019 Frequency: At least 5 of 7 days/Wk (IRF) Estimated Hrs Per Day: 1.5 hours per day Patient and/or Family Agrees t: Yes Safety Risks/Education Patient Education: Gait Training, Transfer Techniques, Correct Positioning, Safety Issues Teaching Recipient: Patient Teaching Methods: Demonstration, Discussion Response to Teaching: Verbalize Understanding, Return Demonstration Time/GCodes Time In: 1015 Time Out: 1115 Total Billed Treatment Time: 60 Total Billed Treatment 1, NM x2 (30m), GT (15m), Ex (15m) CHELY MEYERS AIRCRAFT CLEANING SUPERVISOR Sep 29, 2019 11:13
--- NOTE | 2019-09-29 11:41 | NUR ---
IV Venofer given as ordered, & SL in Lt AC dc'd as ordered.
--- NOTE | 2019-09-29 11:44 | Occupational Ther Daily Note ---
OT Current Status-Daily Note Subjective Pt alert, sitting in recliner. Pt agrees to therapy. No c/o pain. Mental Status/Objective Patient Orientation: Person, Place, Time, Situation Attachments: IV ADL-Treatment Pt working on using sock aide to don socks. Pt doffed socks with territory service representative by self. Education still needed for pt to become proficient with donning socks with sock aide. Pt up ad eladio in room. Able to complete toileting transfer and toileting, mod I using FWW. After session, pt sitting in recliner with call light/phone in reach. All needs met in room. Nrsg in room. Therapy Code Descriptions/Definitions Functional [place] Measure: 0=Not Assessed/NA 4=Minimal Assistance 1=Total Assistance 5=Supervision or Setup 2=Maximal Assistance 6=Modified [place] 3=Moderate Assistance 7=Complete IndependenceSCALE: Activities may be completed with or without assistive devices. 0-Jxylhczddz-nnknrtt completes the activity by him/herself with no assistance from a helper. 5-Set-up or Clean-up Assistance-helper sets up or cleans up; patient completes activity. [place] assists only prior to or following the activity. 4-Supervision or Touching Assistance-helper provides verbal cues and/or touching/steadying and/or contact guard assistance as patient completes activity. Assistance may be provided throughout the activity or intermittently. 3-Partial/Moderate Assistance-helper does LESS THAN HALF the effort. [place] lift s, holds or supports trunk or limbs, but provides less than half the effort. 2-Substantial/Maximal Assistance-helper does MORE THAN HALF the effort. [place] lifts or holds trunk or limbs and provides more than half the effort. 5-Xfwrsvale-vhvtvx does ALL the effort. Patient does none of the effort to complete the activity. Or, the assistance of 2 or more helpers is required for the patient to complete the activity. If activity was not attempted, code reason: 7-Patient Refused. 9-Not Applicable-not attempted and the patient did not perform the activity before the current illness, exacerbation or injury. 10-Not Attempted due to Environmental Limitations-(lack of equipment, weather restraints, etc.). 88-Not Attempted due to Medical Conditions or Safety Concerns. On/Off Footwear: 4 Toileting Hygiene (QC): 6 Toilet Transfer (QC): 6 OT Web Designer Goals [facility] Goals Time Frame: Oct 09, 2019 Eating (QC): 6 (met) Oral Hygiene (QC): 6 (met) Toileting Hygiene (QC): 6 (met) Shower/Bathe Self (QC): 6 (met) Upper Body Dressing (QC): 6 Lower Body Dressing (QC): 6 On/Off Footwear (QC): 6 1=Demonstrate adherence to instructed precautions during ADL tasks. 2=Patient will verbalize/demonstrate understanding of assistive devices/modifications for ADL. 3=Patient will improve strength/tolerance for activity to enable patient to perform ADL's. OT Education/Plan Problem List/Assessment Assessment: Decreased Activ Tolerance, Impaired Self-Care Skills Discharge Recommendations Plan/Recommendations: Continue POC Treatment Plan/Plan of Care Patient would benefit from OT for education, treatment and training to promote independence in ADL's, mobility, safety and/or upper extremity function for ADL's. Plan of Care: ADL Retraining, Functional Mobility, Orthotic Fitting/Training Treatment Duration: Oct 09, 2019 Frequency: At least 5 of 7 days/Wk (IRF) Estimated Hrs Per Day: 1.5 hours per day Agreement: Yes Rehab Potential: Fair Time/GCodes Start Time: 11:15 Stop Time: 11:30 Total Time Billed (hr/min): 15 Billed Treatment Time 1 visit-ADL 1 (15 min) DANAE CROW Sep 29, 2019 11:44
--- NOTE | 2019-09-29 12:01 | NUR ---
PT HAS INSTRUCTED PT THAT SHE MAY BE UP AD MAULIK IN ROOM & TO B/R W FWW
--- NOTE | 2019-09-29 12:18 | Progress Note - Cardiology ---
Cardiology SOAP Progress Note Subjective: Sitting up in recliner at the bedside. States she feels good this morning. No c/o Objective: I&O/Vital Signs 09/29/19 09/29/19 09/29/19 06:06 08:26 08:30 Temp 36.4 Pulse 64 66 Resp 20 20 B/P (MAP) 158/68 (98) 137/63 (87) Pulse Ox 95 98 O2 Delivery Room Air Room Air Room Air 09/29/19 00:00 Intake Total 1030 ml Balance 1030 ml Constitutional: AAO x 3 Respiratory: chest is bilaterally symmetric, lungs clear to auscultation Cardiovascular: regular rate-rhythm, S1 and S2; No diastolic murmur, No systolic murmur Gastrointestional: soft, audible bowel sounds Extremities: other (mod bilat LE swelling - SKYLER wraps in place) Neurologic/Psychiatric: grossly intact (moves all extremities) Skin: No rash on exposed areas, No ulcerations on exposed areas Results/Procedures: Labs A/P: Assessment: Status post acute respiratory failure - resolved Acute diastolic congestive heart failure - clinically compensated Echocardiogram of September 20, 2019 shows LVEF 55-65%. LA mod dilated. Mild to mod TR. PASP approx 30 mmHg. Grade 1 diastolic dysfunction. Non-STEMI, Coronary artery disease history of CABG in 2010 using COLES to LAD, vein graft to the right coronary artery and vein graft to the circumflex artery, nor recent cardiac workup. Upward trend of troponin. Plaque rupture cannot be ruled out. I discussed at length with the patient but she refused coronary angiography. She understands that she could have recurrent UT or in the future. However she does not want coronary angiography. Per Dr. Locke Paroxysmal atrial fibrillation with RVR, patient refused oral anticoagulation. She understands the risk of stroke. Currently SR History of chest pain in the past, no recent episodes of chest pain Hypertension Hyperlipidemia - statin Diabetes mellitus, followed and managed by primary care physician Plan: Continue current medication regimen Monitor labs Due to known h/o CAD will start ASA We have reviewed Dr. Locke's notes SUNIL ERAZO Sep 29, 2019 12:18
--- NOTE | 2019-09-29 14:00 | Physical Therapy Daily Note ---
PT Daily Note-Current Subjective Pt in recliner upon arrival and agrees to tx. Pt has no c/o pain. Mental Status Patient Orientation: Person, Place, Time, Situation Transfers SCALE: Activities may be completed with or without assistive devices. 1-Eldqfhnyht-nmdxzop completes the activity by him/herself with no assistance from a helper. 5-Set-up or Clean-up Assistance-helper sets up or cleans up; patient completes activity. [place] assists only prior to or following the activity. 4-Supervision or Touching Assistance-helper provides verbal cues and/or touching/steadying and/or contact guard assistance as patient completes activity. Assistance may be provided throughout the activity or intermittently. 3-Partial/Moderate Assistance-helper does LESS THAN HALF the effort. [place] lifts, holds or supports trunk or limbs, but provides less than half the effort. 2-Substantial/Maximal Assistance-helper does MORE THAN HALF the effort. [place] lifts or holds trunk or limbs and provides more than half the effort. 8-Rrwilrhnd-hhwugg does ALL the effort. Patient does none of the effort to complete the activity. Or, the assistance of 2 or more helpers is required for the patient to complete the activity. If activity was not attempted, code reason: 7-Patient Refused. 9-Not Applicable-not attempted and the patient did not perform the activity before the current illness, exacerbation or injury. 10-Not Attempted due to Environmental Limitations-(lack of equipment, weather restraints, etc.). 88-Not Attempted due to Medical Conditions or Safety Concerns. Sit to Stand (QC): 6 Toilet Transfer (QC): 6 Gait Training Does the Patient Walk?: Yes Distance: 200 Walk 10 feet (QC): 6 Walk 50 ft with 2 Turns(QC): 6 Walk 150 ft (QC): 5 Gait Assistive Device: FWW Pt amb to laundry room and back with short shuffling gait and a wide NICANOR. Pt required VC to keep FWW close to her. Pt reminded to take FWW with her at all times in room. Exercises Seated Therapy Exercises: Ankle pumps, Long arc quads, Hip flexion, Hip abd/add, Glut set Seated Reps: 15 Treatments Pt uses restroom upon arrival and amb to laundry room. Pt grabbed laundry from dryer and took it back to her room. Pt performed dynamic standing balance while folding clothes. Pt put clothes away in closet followed by seated exercises in recliner. Pt left in recliner with all needs met, call light in hand. Assessment Current Status: Good Progress Pt improving balance, strength, and endurance. Pt requires frequent rest breaks during tx. PT Short Term Goals Short Term Goals Time Frame: Oct 02, 2019 Roll Left & Right: 5 Sit to lyin Lying to sitting on side of be: 5 Sit to stand: 5 Chair/ebk-fb-gcfey transfer: 5 Walk 10 feet: 4 Walk 50 feet with two turns: 4 Walk 150 feet: 4 PT Fpc Goals Fpc Goals PT [place] Goals Time Frame: Oct 16, 2019 Roll Left & Right (QC): 6 Sit to Lying (QC): 6 Lying-Sitting on Side/Bed(QC): 6 Sit to Stand (QC): 6 Chair/Qcv-hi-Aufex Xfer(QC): 6 Toilet Transfer (QC): 6 Car Transfer (QC): 6 Does the Patient Walk: Yes Walk 10 feet (QC): 6 Walk 50ft with 2 Turns (QC): 6 Walk 150 ft (QC): 6 Walking 10ft on Uneven Surface: 6 1 Step (curb) (QC): 4 4 Steps (QC): 4 12 Steps (QC): 88 Picking up an Object (QC): 88 Does the Pt use WC or Scooter?: No Wheel 50 feet with 2 turns (QC: 9 Wheel 150 feet: 9 PT Plan Problem List Problem List: Activity Tolerance, Safety, Balance Treatment/Plan Treatment Plan: Continue Plan of Care Treatment Plan: Bed Mobility, Education, Functional Activity Chip, Functional Strength, Group Therapy, Gait, Safety, Therapeutic Exercise, Transfers Treatment Duration: Oct 16, 2019 Frequency: At least 5 of 7 days/Wk (IRF) Estimated Hrs Per Day: 1.5 hours per day Patient and/or Family Agrees t: Yes Safety Risks/Education Patient Education: Gait Training, Correct Positioning, Safety Issues Teaching Recipient: Patient Teaching Methods: Demonstration, Discussion Response to Teaching: Verbalize Understanding, Return Demonstration Time/GCodes Time In: 1330 Time Out: 1400 Total Billed Treatment Time: 30 Total Billed Treatment 1, NM (15m), EX (15m) CHELY MEYERS PTA Sep 29, 2019 14:00
[2019-09-29] MEDS: DICLOFENAC 1% GEL 100 GM (VOLTAREN) TUBE TOP PRN ×2 (14:01→18:04)
--- NOTE | 2019-09-29 15:11 | NUR ---
Call to Dr. Li's office & notified of consult.
[2019-09-29] MEDS ORDERED: ASPIRIN 81 MG CHEW (CHILDREN'S ASA) PO ONE ×2 (15:30→17:45)
[2019-09-29 15:41] VITALS: BP 137/63
--- NOTE | 2019-09-29 16:05 | Progress Note - Cardiology ---
Cardiology SO Progress Note Objective: I&O/Vital Signs 09/29/19 09/29/19 09/29/19 09/29/19 06:06 08:26 08:30 15:41 Temp 36.4 36.4 Pulse 64 66 66 Resp 20 20 B/P (MAP) 158/68 (98) 137/63 (87) Pulse Ox 95 98 92 O2 Delivery Room Air Room Air Room Air FiO2 21 09/29/19 00:00 Intake Total 1030 ml Balance 1030 ml Constitutional: AAO x 3 Respiratory: chest is bilaterally symmetric, lungs clear to auscultation Cardiovascular: regular rate-rhythm, S1 and S2; No diastolic murmur, No systolic murmur Gastrointestional: soft, audible bowel sounds Extremities: other (mod bilat LE swelling - SKYLER wraps in place) Neurologic/Psychiatric: grossly intact (moves all extremities) Skin: No rash on exposed areas, No ulcerations on exposed areas Results/Procedures: Labs Laboratory Tests 09/28/19 05:40 A/P: Assessment: Status post acute respiratory failure - resolved Acute diastolic congestive heart failure - clinically compensated Echocardiogram of September 20, 2019 shows LVEF 55-65%. LA mod dilated. Mild to mod TR. PASP approx 30 mmHg. Grade 1 diastolic dysfunction. Non-STEMI, Coronary artery disease history of CABG in 2010 using COLES to LAD, vein graft to the right coronary artery and vein graft to the circumflex artery, nor recent cardiac workup. Upward trend of troponin. Plaque rupture cannot be ruled out. I discussed at length with the patient but she refused coronary angiography. She understands that she could have recurrent CT or in the future. However she does not want coronary angiography. Per Dr. Locke Paroxysmal atrial fibrillation with RVR, patient refused oral anticoagulation. She understands the risk of stroke. Currently SR History of chest pain in the past, no recent episodes of chest pain Hypertension Hyperlipidemia - statin Diabetes mellitus, followed and managed by primary care physician Plan: I interviewed and examined the patient and reviewed her records Continue current medication regimen Monitor labs Due to known h/o CAD will start YEFRI MITCHELL MD FACP FAC CCDS Sep 29, 2019 16:05
--- NOTE | 2019-09-29 16:10 | NUR ---
provided prayer and Communion.
[2019-09-29 16:25] VITALS: BP 138/68
--- NOTE | 2019-09-29 17:26 | NUR ---
Dr. Li & staff here to perform foot/toenail care as ordered by consult.
--- NOTE | 2019-09-29 17:30 | Podiatry Progress Note ---
Standard Progress Note Progress Notes/Assess & Plan Date Seen by a Provider: Sep 29, 2019 Time Seen by a Provider: 17:29 Progress/Assessment & Plan Consult dictated, foot care given. Dx: Onychomycosis, Edema, Peripheral Neuropathy Final Diagnosis Onychomycosis, Edema, Peripheral Neuropathy ANYIAH DE ANDA DPCeline Sep 29, 2019 17:30
--- NOTE | 2019-09-29 18:09 | CONSULTATION REPORT ---
DATE OF SERVICE: REASON FOR CONSULTATION: Foot care. HISTORY OF PRESENT ILLNESS: This 84-year-old female who was admitted secondary to new onset of congestive heart failure and AFib with anemia. The patient has a history of hypertension, hyperlipidemia, osteoarthritis, coronary artery disease with a CABG. She is currently in rehabilitation due to her congestive heart failure. She has difficulty reaching for and caring for her feet. The patient reported shortness of breath, headaches and body aches, weakness prior to being admitted. As reported, past medical history includes CABG, hysterectomy, AFib, coronary artery disease, hypercholesterolemia, gastrointestinal bleed, hemorrhoids, arthritis, chronic back pain, diabetes, non-insulin dependent, ovarian cancer. ALLERGIES: SHE IS ALLERGIC TO PENICILLIN. CURRENT MEDICATIONS: Listed on the patient's chart. SOCIAL HISTORY: She is a , retired. Denies tobacco or alcohol use. PHYSICAL EXAMINATION: GENERAL: This is a well-developed female, in no apparent distress. EXTREMITIES: The patient has 0/4 dorsalis pedis pulse on the right, 1/4 dorsalis pedis pulse on the left, 0/4 posterior tibial pulse noted bilateral lower extremity. She has capillary refill time of less than 2 seconds. NEUROLOGIC: The patient has intact protective sensation per 10-gram monofilament wire examination bilaterally. Diminished vibratory sensation bilaterally to the forefoot as well as deep tendon reflexes to the Achilles tendon. The patient has pitting edema noted bilaterally. DERMATOLOGIC: The patient has some thick yellow dystrophic toenails with subungual debris to the right first and second digit into the left first and second digits. There is a hyperkeratotic lesion noted to the plantar medial aspect of the hallux interphalangeal joint bilaterally. MUSCULOSKELETAL FINDINGS: The patient has 4/5 muscle strength to the four major quadrants of the foot. She has contracted toes fifth digit bilaterally. ASSESSMENT: Atherosclerosis, edema, onychomycosis idiopathic peripheral neuropathy, corns and calluses, Hammer digit syndrome. PLAN: Various treatment options were discussed with the patient today. The patient's toenails were debrided manually mechanically. Betadine applied to the R1 and 2 and L1 and 2 digits. Her hyperkeratotic lesion was also reduced. The patient will continue with appropriate compression therapy. The patient is welcome to follow up in our office upon discharge as necessary. Job ID: [id number] DocumentID: [id number] Dictated Date: 09/29/2019 17:36:54 File Drawer Finisher Date: 09/29/2019 18:07:57 Dictated By: ANIYAH DE ANDA DPM
[2019-09-29] MEDS: MELATONIN 3 MG TABLET PO PRN (20:30)
[2019-09-30 06:00] VITALS: BP 137/60
[2019-09-30] MEDS: glyBURIDE 2.5 MG (MICRONASE) TAB PO SCH (06:20)
[2019-09-30] MEDS: CATHETER FLUSH 10 ML SYR IV SCH ×3 (06:20→22:00)
--- NOTE | 2019-09-30 07:56 | Occupational Ther Daily Note ---
OT Current Status-Daily Note Subjective Pt alert, sitting in recliner. Pt agrees to therapy. No c/o pain at this time. Pt asks if she can go home this week. Discussed how Saturday's rehab meeting works, and that [facility] will recommend that she is able to go home. Pt has been QC'd this date. Mental Status/Objective Patient Orientation: Person, Place, Time, Situation ADL-Treatment Pt had already gotten clothing out to wear today. Pt up ad eladio in room with FWW. Pt mod I for toileting and toilet transfer. Pt sitting at sink to complete bathing and oral care, mod I. Pt takes increased time to complete tasks due to multiple recovery breaks for energy conservation. Pt mod I for all dressing. After session, pt sitting in chair with call light/phone in reach. All needs met in room. Therapy Code Descriptions/Definitions Functional [place] Measure: 0=Not Assessed/NA 4=Minimal Assistance 1=Total Assistance 5=Supervision or Setup 2=Maximal Assistance 6=Modified [place] 3=Moderate Assistance 7=Complete IndependenceSCALE: Activities may be completed with or without assistive devices. 6-Sehpmfbdsm-sfuymqw completes the activity by him/herself with no assistance from a helper. 5-Set-up or Clean-up Assistance-helper sets up or cleans up; patient completes activity. [place] assists only prior to or following the activity. 4-Supervision or Touching Assistance-helper provides verbal cues and/or touching/steadying and/or contact guard assistance as patient completes activity. Assistance may be provided throughout the activity or intermittently. 3-Partial/Moderate Assistance-helper does LESS THAN HALF the effort. [place] lifts, holds or supports trunk or limbs, but provides less than half the effort. 2-Substantial/Maximal Assistance-helper does MORE THAN HALF the effort. [place] lifts or holds trunk or limbs and provides more than half the effort. 0-Srmcofkaq-dfncyi does ALL the effort. Patient does none of the effort to complete the activity. Or, the assistance of 2 or more helpers is required for the patient to complete the activity. If activity was not attempted, code reason: 7-Patient Refused. 9-Not Applicable-not attempted and the patient did not perform the activity before the current illness, exacerbation or injury. 10-Not Attempted due to Environmental Limitations-(lack of equipment, weather restraints, etc.). 88-Not Attempted due to Medical Conditions or Safety Concerns. Eating (QC): 6 (Demonstrates that ability to set up own meal and use regular utensils.) Oral Hygiene (QC): 6 Shower/Bathe Self (QC): 6 Upper Body Dressing (QC): 6 Lower Body Dressing (QC): 6 On/Off Footwear: 6 Toileting Hygiene (QC): 6 Toilet Transfer (QC): 6 Pt stated that she has a walk-in shower and built in tub seat. OT Senior Budget Analyst Goals Long-Term Goals Time Frame: Oct 09, 2019 Eating (QC): 6 (met) Oral Hygiene (QC): 6 (met) Toileting Hygiene (QC): 6 (met) Shower/Bathe Self (QC): 6 (met) Upper Body Dressing (QC): 6 (met) Lower Body Dressing (QC): 6 (met) On/Off Footwear (QC): 6 (met) 1=Demonstrate adherence to instructed precautions during ADL tasks. 2=Patient will verbalize/demonstrate understanding of assistive devices/modifications for ADL. 3=Patient will improve strength/tolerance for activity to enable patient to perform ADL's. OT Education/Plan Problem List/Assessment Assessment: Decreased Activ Tolerance, Impaired Funct Balance, Impaired Self- Care Skills Discharge Recommendations Plan/Recommendations: Continue POC Equpiment Recommendations-D/C: Sock Aide Treatment Plan/Plan of Care Patient would benefit from OT for education, treatment and training to promote independence in ADL's, mobility, safety and/or upper extremity function for ADL's. Plan of Care: ADL Retraining, Functional Mobility, Orthotic Fitting/Training Treatment Duration: Oct 09, 2019 Frequency: At least 5 of 7 days/Wk (IRF) Estimated Hrs Per Day: 1.5 hours per day Agreement: Yes Rehab Potential: Fair Time/GCodes Start Time: 07:30 Stop Time: 08:30 Total Time Billed (hr/min): 60 Billed Treatment Time 1 visit-ADL 4 (60 min) DANAE CROW Sep 30, 2019 07:56
[2019-09-30] MEDS: OXYMETAZOLINE (AFRIN) 0.05% NA 30 ML BTL SCH ×2 (08:36→20:35)
[2019-09-30] MEDS: LORATADINE (CLARITIN) 10 MG TAB PO SCH ×2 (08:36→20:36)
[2019-09-30] MEDS: PANTOPRAZOLE 40 MG (PROTONIX) TAB PO SCH ×2 (08:36→20:36)
[2019-09-30] MEDS: DOCUSATE SODIUM 100 MG (COLACE) CAP PO SCH ×2 (08:36→20:36)
[2019-09-30] MEDS: polyethylene glycoL POWDER 17 GM (MIRALAX) PACK PO SCH ×2 (08:36→20:37)
[2019-09-30] MEDS: KCL 10 MEQ TAB (MICRO K) PO SCH ×2 (08:36→18:27)
[2019-09-30] MEDS: SENNA W/DOCUSATE (SENOKOT S) TABLET PO SCH ×2 (08:36→20:38)
[2019-09-30] MEDS: ASPIRIN 81 MG CHEW (CHILDREN'S ASA) PO SCH (08:36)
[2019-09-30] MEDS: meTOprolol SUCCINATE 100 MG (TOPROL XL) TAB PO SCH (08:36)
[2019-09-30] MEDS: FUROSEMIDE 40 MG (LASIX) TAB PO SCH (08:36)
--- NOTE | 2019-09-30 08:50 | PM&R Progress Note ---
Subjective HPI/CC On Admission Date Seen by Provider: Sep 30, 2019 Time Seen by Provider: 10:00 Subjective/Events-last exam Had a BM yesterday No melena ADA diet maintained [place] wraps to legs are helpful Wants to go home tomorrow Checked meds and labs Conferred wtih RN Reviewed therapy notes Review of Systems General: Fatigue, Malaise Pulmonary: Dyspnea Objective Exam Vital Signs Vital Signs Date Time Temp Pulse Resp B/P (MAP) Pulse Ox O2 Delivery O2 Flow Rate FiO2 09/30/19 20:50 Room Air 09/30/19 18:00 37.2 63 18 133/62 (85) 96 09/29/19 15:41 21 09/28/19 17:39 2.00 Capillary Refill : Less Than 3 Seconds General Appearance: No Apparent Distress, WD/WN, Chronically ill, Obese HEENT: PERRL/EOMI, Normal ENT Inspection, Pharynx Normal Neck: Full Range of Motion, Normal Inspection, Non Tender, Supple, Carotid Bruit Respiratory: Chest Non Tender, Lungs Clear, Normal Breath Sounds, No Accessory Muscle Use, No Respiratory Distress Cardiovascular: Regular Rate, Rhythm, No Edema, No Gallop, No JVD, No Murmur, Normal Peripheral Pulses Gastrointestinal: Normal Bowel Sounds, No Organomegaly, No Pulsatile Mass, Non Tender, Soft Back: Normal Inspection, No CVA Tenderness, No Vertebral Tenderness Extremity: Normal Capillary Refill, Normal Inspection, Normal Range of Motion, Non Tender, No Calf Tenderness, No Pedal Edema Neurologic/Psychiatric: Alert, Oriented x3, No Motor/Sensory Deficits, Normal Mood/Affect, underwriting technician II-XII Norm as Tested, Motor Weakness (generalized extremities) Skin: Normal Color, Warm/Dry Lymphatic: No Adenopathy Results/Procedures Lab Patient resulted labs reviewed. FIM Transfers Therapy Code Descriptions/Definitions Functional [place] Measure: 0=Not Assessed/NA 4=Minimal Assistance 1=Total Assistance 5=Supervision or Setup 2=Maximal Assistance 6=Modified [place] 3=Moderate Assistance 7=Complete IndependenceSCALE: Activities may be completed with or without assistive devices. 7-Lqeutstzjf-nylnjbb completes the activity by him/herself with no assistance from a helper. 5-Set-up or Clean-up Assistance-helper sets up or cleans up; patient completes activity. [place] assists only prior to or following the activity. 4-Supervision or Touching Assistance-helper provides verbal cues and/or touching/steadying and/or contact guard assistance as patient completes activity. Assistance may be provided throughout the activity or intermittently. 3-Partial/Moderate Assistance-helper does LESS THAN HALF the effort. [place] lifts, holds or supports trunk or limbs, but provides less than half the effort. 2-Substantial/Maximal Assistance-helper does MORE THAN HALF the effort. [place] lifts or holds trunk or limbs and provides more than half the effort. 2-Zsdihwwgj-zhrhva does ALL the effort. Patient does none of the effort to complete the activity. Or, the assistance of 2 or more helpers is required for the patient to complete the activity. If activity was not attempted, code reason: 7-Patient Refused. 9-Not Applicable-not attempted and the patient did not perform the activity before the current illness, exacerbation or injury. 10-Not Attempted due to Environmental Limitations-(lack of equipment, weather restraints, etc.). 88-Not Attempted due to Medical Conditions or Safety Concerns. Roll Left to Right (QC): 6 Sit to Lying (QC): 6 Sit to Stand (QC): 6 Chair/Ghl-pp-Xjdfl Xfer(QC): 6 Car Transfer (QC): 4 Gait Training Does the Patient Walk?: Yes Distance: 200 Walk 10 feet (QC): 6 Walk 50 ft with 2 Turns(QC): 6 Walk 150 ft (QC): 5 Walking 10ft/uneven surface-QC: 4 Gait Persons Needed: 1 Gait Assistive Device: FWW Wheelchair Training Does the Pt Use a Wheelchair?: No Wheel 50 ft with 2 turns (QC): 9 Wheel 150 ft (QC): 9 Stair Training #of Steps: 1 1 Step (curb) (QC): 4 4 Steps (QC): 88 12 Steps (QC): 88 Balance Picking up an Object (QC): 88 ADL-Treatment Eating (QC): 6 (Demonstrates that ability to set up own meal and use regular utensils.) Oral Hygiene (QC): 6 Bathing Location: L Arm, R Arm, L Upper Leg, R Upper Leg, L Lower Leg (including foot), R Lower Leg (including foot), Chest, Abdomen, Buttocks, Perineal Area Shower/Bathe Self (QC): 6 Upper Body Dressing (QC): 6 Lower Body Dressing (QC): 6 On/Off Footwear (QC): 6 Toileting Hygiene (QC): 6 Toilet Transfer (QC): 6 Assessment/Plan Assessment and Plan Assess & Plan/Chief Complaint Assessment: Debility/myopathy from critical illness s/p acute exacerbation of congestive heart failure new onset New onset PAF CAD previous bypass DM HTN Severe arthritis Melena requiring DC Lovenox and ASA Hemorrhoids Hypokalemia Plan: Appreciate cardiology Wean oxygen Diuresis Home meds COVID swab negative IRF protocol Potassium 09/28/19: Wean oxygen DC Telemetry Lasix IV changed to PO per cardiology when they feel it's necessary Continue intensive therapy in order to go home to live independently 09/29/19: Weaned off O2 Continue intensive therapy One more iron infusion today then we will discontinue the heplock since its in a bad place in the left antecubital Evaluate disposition at team meeting tomorrow 09/30/19: Discharge is planned for tomorrow Bowel regimen working well ADA diet maintained [place] wraps to legs (1) Respiratory distress (2) CAD (coronary artery disease) (3) Diabetes (4) Arthritis (5) Hypercapnia (6) Hyperlipidemia (7) Hypertension (8) BiPAP (biphasic positive airway pressure) dependence (9) Type 2 AMI (acute myocardial infarction) (10) Atrial fibrillation with rapid ventricular response (11) Hx of CABG (12) Acute heart failure Status: Acute (13) Melena (14) Anemia, iron deficiency KEILA MARTINEZ DO Sep 30, 2019 08:50
--- NOTE | 2019-09-30 11:21 | Occupational Ther Daily Note ---
OT Current Status-Daily Note Subjective Pt alert, sitting in recliner. Pt agrees to therapy. No c/o pain. Mental Status/Objective Patient Orientation: Person, Place, Time, Situation ADL-Treatment Pt completed toileting and toilet transfer at beginning of session and end of session, mod I. Therapy Code Descriptions/Definitions Functional [place] Measure: 0=Not Assessed/NA 4=Minimal Assistance 1=Total Assistance 5=Supervision or Setup 2=Maximal Assistance 6=Modified [place] 3=Moderate Assistance 7=Complete IndependenceSCALE: Activities may be completed with or without assistive devices. 8-Qofhxtsgsh-hwgijzf completes the activity by him/herself with no assistance from a helper. 5-Set-up or Clean-up Assistance-helper sets up or cleans up; patient completes activity. [place] assists only prior to or following the activity. 4-Supervision or Touching Assistance-helper provides verbal cues and/or touching/steadying and/or contact guard assistance as patient completes activity. Assistance may be provided throughout the activity or intermittently. 3-Partial/Moderate Assistance-helper does LESS THAN HALF the effort. [place] lifts, holds or supports trunk or limbs, but provides less than half the effort. 2-Substantial/Maximal Assistance-helper does MORE THAN HALF the effort. [place] lifts or holds trunk or limbs and provides more than half the effort. 1-Niqdtesxl-rzuzbu does ALL the effort. Patient does none of the effort to complete the activity. Or, the assistance of 2 or more helpers is required for the patient to complete the activity. If activity was not attempted, code reason: 7-Patient Refused. 9-Not Applicable-not attempted and the patient did not perform the activity before the current illness, exacerbation or injury. 10-Not Attempted due to Environmental Limitations-(lack of equipment, weather restraints, etc.). 88-Not Attempted due to Medical Conditions or Safety Concerns. Other Treatment Pt ambulated with FWW to therapy gym. Completed arm bike to increase strength and activity tolerance for daily functional tasks. 15 min at 15 bhakta resistance without recovery breaks. After session, pt sitting in recliner with call light/phone in reach. All needs met in room. OT [facility] Goals [facility] Goals Time Frame: Oct 09, 2019 Eating (QC): 6 (met) Oral Hygiene (QC): 6 (met) Toileting Hygiene (QC): 6 (met) Shower/Bathe Self (QC): 6 (met) Upper Body Dressing (QC): 6 (met) Lower Body Dressing (QC): 6 (met) On/Off Footwear (QC): 6 (met) 1=Demonstrate adherence to instructed precautions during ADL tasks. 2=Patient will verbalize/demonstrate understanding of assistive devices/modifications for ADL. 3=Patient will improve strength/tolerance for activity to enable patient to perform ADL's. OT Education/Plan Discharge Recommendations Plan/Recommendations: Continue POC Equpiment Recommendations-D/C: Hip Kit, Sock Aide Treatment Plan/Plan of Care Patient would benefit from OT for education, treatment and training to promote independence in ADL's, mobility, safety and/or upper extremity function for ADL's. Plan of Care: ADL Retraining, Functional Mobility, Orthotic Fitting/Training Treatment Duration: Oct 09, 2019 Frequency: At least 5 of 7 days/Wk (IRF) Estimated Hrs Per Day: 1.5 hours per day Agreement: Yes Rehab Potential: Fair Time/GCodes Start Time: 10:45 Stop Time: 11:15 Total Time Billed (hr/min): 30 Billed Treatment Time 1 visit-ADL 1 (15 min) EX 1 (15 min) DANAE CROW Sep 30, 2019 11:21
--- NOTE | 2019-09-30 12:10 | Physical Therapy Daily Note ---
PT Daily Note-Current Subjective Pt sitting in recliner upon arrival. Pt agrees to PT and again reports hoping to DC soon. Pain Location: No Pain Reported Mental Status Patient Orientation: Person, Place, Time, Situation Transfers SCALE: Activities may be completed with or without assistive devices. 2-Hozqviruvu-yrgymav completes the activity by him/herself with no assistance from a helper. 5-Set-up or Clean-up Assistance-helper sets up or cleans up; patient completes activity. [place] assists only prior to or following the activity. 4-Supervision or Touching Assistance-helper provides verbal cues and/or t ouching/steadying and/or contact guard assistance as patient completes activity. Assistance may be provided throughout the activity or intermittently. 3-Partial/Moderate Assistance-helper does LESS THAN HALF the effort. [place] lifts, holds or supports trunk or limbs, but provides less than half the effort. 2-Substantial/Maximal Assistance-helper does MORE THAN HALF the effort. [place] lifts or holds trunk or limbs and provides more than half the effort. 0-Tuuhawhvz-vfpwkt does ALL the effort. Patient does none of the effort to complete the activity. Or, the assistance of 2 or more helpers is required for the patient to complete the activity. If activity was not attempted, code reason: 7-Patient Refused. 9-Not Applicable-not attempted and the patient did not perform the activity before the current illness, exacerbation or injury. 10-Not Attempted due to Environmental Limitations-(lack of equipment, weather restraints, etc.). 88-Not Attempted due to Medical Conditions or Safety Concerns. Roll Left & Right (QC): 6 Sit to Lying (QC): 6 Lying to Sitting/Side of Bed(Q: 6 Sit to Stand (QC): 6 Chair/Thy-ku-Comdd Xfer(QC): 6 Toilet Transfer (QC): 6 Car Transfer (QC): 6 Weight Bearing Full Weight Bearing Full Weight Bearing Gait Training Does the Patient Walk?: Yes Distance: 150' x2 Walk 10 feet (QC): 6 Walk 50 ft with 2 Turns(QC): 6 Walk 150 ft (QC): 6 Walking 10ft/uneven surface-QC: 6 Gait Persons Needed: 1 Gait Assistive Device: FWW Pt given VC to walk closer to FWW especially when tired. Wheelchair Training Does the Pt Use a Wheelchair?: No Stair Training Stair Training: Handrails/: 2 handrails #of Steps: 4 1 Step (curb) (QC): 6 4 Steps (QC): 6 12 Steps (QC): 7 Stairs: Pattern: Step to Pt has 3 steps to amb. at home. Balance Picking up an Object (QC): 6 Exercises NuStep Minutes: 15 NuStep Workload: 4 Treatments Pt completes QC scoring items listed above as well as uses NuStep for 15m at WL 4. Pt returns to room to rest at end of Rx. Pt has all needs met, call light in hand. Assessment Current Status: Good Progress Pt tolerates Rx well and is looking forward to DC soon. Pt reports needing Hip kit & grab bars in bathroom. SW notified. Pt uses recliner to sleep in not bed. PT Short Term Goals Short Term Goals Time Frame: Oct 02, 2019 Roll Left & Right: 5 Sit to lyin Lying to sitting on side of be: 5 Sit to stand: 5 Chair/zgx-cl-ndnul transfer: 5 Walk 10 feet: 4 Walk 50 feet with two turns: 4 Walk 150 feet: 4 PT Senior Living Goals Senior Living Goals PT Senior Living Goals Time Frame: Oct 16, 2019 Roll Left & Right (QC): 6 Sit to Lying (QC): 6 Lying-Sitting on Side/Bed(QC): 6 Sit to Stand (QC): 6 Chair/Nvh-cu-Cizwr Xfer(QC): 6 Toilet Transfer (QC): 6 Car Transfer (QC): 6 Does the Patient Walk: Yes Walk 10 feet (QC): 6 Walk 50ft with 2 Turns (QC): 6 Walk 150 ft (QC): 6 Walking 10ft on Uneven Surface: 6 1 Step (curb) (QC): 4 4 Steps (QC): 4 12 Steps (QC): 88 Picking up an Object (QC): 88 Does the Pt use WC or Scooter?: No Wheel 50 feet with 2 turns (QC: 9 Wheel 150 feet: 9 PT Plan Problem List Problem List: Safety Treatment/Plan Treatment Plan: Continue Plan of Care Treatment Plan: Bed Mobility, Education, Functional Activity Chip, Functional Strength, Group Therapy, Gait, Safety, Therapeutic Exercise, Transfers Treatment Duration: Oct 16, 2019 Frequency: At least 5 of 7 days/Wk (IRF) Estimated Hrs Per Day: 1.5 hours per day Patient and/or Family Agrees t: Yes Safety Risks/Education Patient Education: Gait Training, Correct Positioning, Safety Issues Teaching Recipient: Patient Teaching Methods: Discussion Response to Teaching: Verbalize Understanding Time/GCodes Time In: 930 Time Out: 1030 Total Billed Treatment Time: 60 Total Billed Treatment 1, GT (15m), EX (15m) & FA x2 (30m) CHELY MEYERS COAL INSPECTOR Sep 30, 2019 12:10
--- NOTE | 2019-09-30 13:41 | Physical Therapy Daily Note ---
PT Daily Note-Current Subjective Pt sitting in recliner upon arrival. Pt agrees to PT. Pain Location: No Pain Reported Mental Status Patient Orientation: Person, Place, Time, Situation Transfers SCALE: Activities may be completed with or without assistive devices. 7-Penetqwmek-udpozvd completes the activity by him/herself with no assistance from a helper. 5-Set-up or Clean-up Assistance-helper sets up or cleans up; patient completes activity. [place] assists only prior to or following the activity. 4-Supervision or Touching Assistance-helper provides verbal cues and/or touching/steadying and/or contact guard assistance as patient completes activity. Assistance may be provided throughout the activity or intermittently. 3-Partial/Moderate Assistance-helper does LESS THAN HALF the effort. [place] lifts, holds or supports trunk or limbs, but provides less than half the effort. 2-Substantial/Maximal Assistance-helper does MORE THAN HALF the effort. [place] lifts or holds trunk or limbs and provides more than half the effort. 9-Mepqwnsll-npyott does ALL the effort. Patient does none of the effort to complete the activity. Or, the assistance of 2 or more helpers is required for the patient to complete the activity. If activity was not attempted, code reason: 7-Patient Refused. 9-Not Applicable-not attempted and the patient did not perform the activity bef ore the current illness, exacerbation or injury. 10-Not Attempted due to Environmental Limitations-(lack of equipment, weather r estraints, etc.). 88-Not Attempted due to Medical Conditions or Safety Concerns. Sit to Stand (QC): 6 Weight Bearing Full Weight Bearing Full Weight Bearing Gait Training Does the Patient Walk?: Yes Distance: 150' x2 Walk 10 feet (QC): 6 Walk 50 ft with 2 Turns(QC): 6 Walk 150 ft (QC): 6 Gait Assistive Device: FWW CLINICAL DATA ASSISTANT advised of safety of 4WW and how to use properly. Wheelchair Training Does the Pt Use a Wheelchair?: No Stair Training Stair Training: Handrails/: 2 handrails #of Steps: 4 (2 reps) 1 Step (curb) (QC): 5 4 Steps (QC): 5 12 Steps (QC): 7 Stairs: Pattern: Step to Treatments Pt amb in hallway then comes 2 sets of 4 steps with RB in between. Pt amb. in hallway before returning to room to rest. Pt in recliner with all needs met, call light in hand. Assessment Current Status: Good Progress Pt tolerates Rx well, occasional fatigue and RB needed. PT Short Term Goals Short Term Goals Time Frame: Oct 02, 2019 Roll Left & Right: 5 Sit to lyin Lying to sitting on side of be: 5 Sit to stand: 5 Chair/zcf-up-seype transfer: 5 Walk 10 feet: 4 Walk 50 feet with two turns: 4 Walk 150 feet: 4 PT Alf Goals Benefits Specialist Goals PT Benefits Specialist Goals Time Frame: Oct 16, 2019 Roll Left & Right (QC): 6 Sit to Lying (QC): 6 Lying-Sitting on Side/Bed(QC): 6 Sit to Stand (QC): 6 Chair/Vkb-fp-Zljdw Xfer(QC): 6 Toilet Transfer (QC): 6 Car Transfer (QC): 6 Does the Patient Walk: Yes Walk 10 feet (QC): 6 Walk 50ft with 2 Turns (QC): 6 Walk 150 ft (QC): 6 Walking 10ft on Uneven Surface: 6 1 Step (curb) (QC): 4 4 Steps (QC): 4 12 Steps (QC): 88 Picking up an Object (QC): 88 Does the Pt use WC or Scooter?: No Wheel 50 feet with 2 turns (QC: 9 Wheel 150 feet: 9 PT Plan Problem List Problem List: Activity Tolerance Treatment/Plan Treatment Plan: Continue Plan of Care Treatment Plan: Bed Mobility, Education, Functional Activity Chip, Functional Strength, Group Therapy, Gait, Safety, Therapeutic Exercise, Transfers Treatment Duration: Oct 16, 2019 Frequency: At least 5 of 7 days/Wk (IRF) Estimated Hrs Per Day: 1.5 hours per day Patient and/or Family Agrees t: Yes Safety Risks/Education Patient Education: Gait Training Teaching Recipient: Patient Teaching Methods: Discussion Response to Teaching: Verbalize Understanding Time/GCodes Time In: 1300 Time Out: 1330 Total Billed Treatment Time: 30 Total Billed Treatment 1, GT (15m) & FA (15m) CHELY MEYERS CLINICAL DATA ASSISTANT Sep 30, 2019 13:41
--- NOTE | 2019-09-30 14:46 | Progress Note - Cardiology ---
Cardiology SOAP Progress Note Subjective: No cp or palp or syncope or shortness of breath at rest Gen weakness No n/v/d Objective: I&O/Vital Signs 09/30/19 09/30/19 06:00 08:00 Temp 36.6 Pulse 59 Resp 16 B/P (MAP) 137/60 (85) Pulse Ox 92 O2 Delivery Room Air Room Air 09/30/19 00:00 Intake Total 1120 ml Balance 1120 ml Constitutional: AAO x 3 Respiratory: chest is bilaterally symmetric, lungs clear to auscultation Cardiovascular: regular rate-rhythm, S1 and S2; No diastolic murmur, No systolic murmur Gastrointestional: soft, audible bowel sounds Extremities: other (mod bilat LE swelling - SK[place] wraps in place) Neurologic/Psychiatric: grossly intact (moves all extremities) Skin: No rash on exposed areas, No ulcerations on exposed areas A/P: Assessment: Status post acute respiratory failure - resolved Acute diastolic congestive heart failure - clinically compensated Echocardiogram of September 20, 2019 shows LVEF 55-65%. LA mod dilated. Mild to mod TR. PASP approx 30 mmHg. Grade 1 diastolic dysfunction. Non-STEMI, Coronary artery disease history of CABG in 2010 using COLES to LAD, vein graft to the right coronary artery and vein graft to the circumflex artery, no recent cardiac workup. However she does not want coronary angiography. Per Dr. Locke Paroxysmal atrial fibrillation with RVR, patient refused oral anticoagulation. She understands the risk of stroke. Currently SR History of chest pain in the past, no recent episodes of chest pain Hypertension Hyperlipidemia - statin Diabetes mellitus, followed and managed by primary care physician Plan: Continue current medication regimen Monitor labs from time to time Due to known h/o CAD we have started YEFRI MITCHELL MD FACP FAC CCDS Sep 30, 2019 14:46
--- NOTE | 2019-09-30 15:51 | NUR ---
CM/SS PATIENT CARE CONFERENCE Reviewed Summary with patient, the team agreed with her request to discharge to her home tomorrow. DME: Patient will benefit from assistive devices handicap grab bars with suction and a Hip Kit. Neither are insurance covered which we had discussed earlier in the week. Provided patient with Google search information about brands and potential locations like [employer], [employer]. Regarding hip kit with sock aid, patient agreed to private pay and asked director underwriter sales to coordinate with [facility]. Agency understands to deliver to room and patient has checkbook ready to pay upon delivery. Patient indicates her son will be picking her up tomorrow after lunch. IMM2 presented, signed, charted. Patient initiated the request to discharge, no intention to appeal.
[2019-09-30 18:00] VITALS: BP 133/62
--- NOTE | 2019-09-30 19:06 | NUR ---
bedside report received from NICA MENDOZA, assume care of pt
--- NOTE | 2019-09-30 20:35 | NUR ---
pt took colace refused miralax & senoskot, mila wraps were off all day, put mila wraps on, as pt stays up in the chair all night
[2019-09-30] MEDS ORDERED: PANT40TA3 PO (21:09)
[2019-09-30] MEDS ORDERED: FURO40TA4 PO (21:09)
[2019-10-01 05:21] VITALS: BP 134/61
[2019-10-01 05:35] LABS: BASOPHILS % (AUTO) 1 % (0-10); EOSINOPHILS # (AUTO) 0.2 10^3/uL (0.0-0.3); EOSINOPHILS % (AUTO) 3 % (0-10); HEMATOCRIT 28 % (35-52); HEMOGLOBIN 8.8 G/DL (11.5-16.0); LYMPHOCYTES # (AUTO) 1.9 X 10^3 (1.0-4.0); LYMPHOCYTES % (AUTO) 33 % (12-44); MEAN CORPUSCULAR HEMOGLOBIN 30 PG (25-34); MEAN CORPUSCULAR HGB CONC 32 G/DL (32-36); MEAN CORPUSCULAR VOLUME 94 FL (80-99); MEAN PLATELET VOLUME 8.5 FL (7.4-10.4); MONOCYTES # (AUTO) 0.6 X 10^3 (0.0-1.0); MONOCYTES % (AUTO) 11 % (0-12); NEUTROPHILS % (AUTO) 53 % (42-75); PLATELET COUNT 346 10^3/uL (130-400); WHITE BLOOD COUNT 5.7 10^3/uL (4.3-11.0)
[2019-10-01 05:45] LABS: ALBUMIN 3.5 GM/DL (3.2-4.5); POTASSIUM 3.9 MMOL/L (3.6-5.0)
[2019-10-01 05:46] LABS: CALCIUM 8.6 MG/DL (8.5-10.1)
[2019-10-01 05:47] LABS: TOTAL PROTEIN 6.2 GM/DL (6.4-8.2)
[2019-10-01 05:49] LABS: BILIRUBIN,TOTAL 0.3 MG/DL (0.1-1.0)
[2019-10-01 05:51] LABS: CREATININE SERUM 1.34 MG/DL (0.60-1.30)
[2019-10-01] MEDS: CATHETER FLUSH 10 ML SYR IV SCH (06:00)
--- NOTE | 2019-10-01 06:24 | Discharge Summary ---
Diagnosis/Chief Complaint Date of Admission Sep 25, 2019 at 09:28 Date of Discharge Discharge Date: Sep 30, 2019 Discharge Diagnosis Assessment: Debility/myopathy from critical illness s/p acute exacerbation of congestive heart failure new onset New onset PAF CAD previous bypass DM HTN Severe arthritis Melena requiring DC Lovenox and ASA Hemorrhoids Hypokalemia Plan: Appreciate cardiology Wean oxygen Diuresis Home meds COVID swab negative IRF protocol Potassium 09/28/19: Wean oxygen DC Telemetry Lasix IV changed to PO per cardiology when they feel it's necessary Continue intensive therapy in order to go home to live independently 09/29/19: Weaned off O2 Continue intensive therapy One more iron infusion today then we will discontinue the heplock since its in a bad place in the left antecubital Evaluate disposition at team meeting tomorrow 09/30/19: Discharge is planned for tomorrow Bowel regimen working well ADA diet maintained Blanco wraps to legs Discharge Summary Discharge Physical Examination Allergies: Coded Allergies: Penicillins (Unverified Allergy, Mild, 12/18/08) Vitals & I&Os Vital Signs Date Time Temp Pulse Resp B/P (MAP) Pulse Ox O2 Delivery O2 Flow Rate FiO2 10/01/19 13:52 36.4 68 18 134/61 96 Room Air 09/29/19 15:41 21 09/28/19 17:39 2.00 General Appearance: Alert, Oriented X3 Respiratory: Normal Air Movement Cardiovascular: Regular Rate Hospital Course Was the Problem List Reviewed?: Yes Hospital course: Pt had an uneventful seven day hospital course after she was moved from fourth floor from ICU due to acute-onset CHF new onset and new AFIB which required aggressive cardiology management along with diuresis with IV Lasix, she did have an episode of melena that resolved by the time she was in rehab but she did require iron infusions X3 doses. Oxygen was weaned, she was able to participate in therapies and she was able to be discharged in improved condition with close follow-up with my clinic in one week, [facility] home health will be used for short term for medication administration and checking O2 and BP levels. She was back to her baseline activity. Labs (last 24 hrs) Laboratory Tests 09/26/19 05:00: White Blood Count 6.2, Red Blood Count 2.70L, Hemoglobin 7.9L, Hematocrit 25L, Mean Corpuscular Volume 92, Mean Corpuscular Hemoglobin 29, Mean Corpuscular Hemoglobin Concent 32, Red Cell Distribution Width 13.3, Platelet Count 281, Mean Platelet Volume 10.0, Neutrophils (%) (Auto) 53, Lymphocytes (%) (Auto) 35, Monocytes (%) (Auto) 10, Eosinophils (%) (Auto) 3, Basophils (%) (Auto) 1, Neutrophils # (Auto) 3.3, Lymphocytes # (Auto) 2.1, Monocytes # (Auto) 0.6, Eosinophils # (Auto) 0.2, Basophils # (Auto) 0.0, Sodium Level 144, Potassium Level 3.3L, Chloride Level 101, Carbon Dioxide Level 31, Anion Gap 12, Blood Urea Nitrogen 43H, Creatinine 1.16, Estimat Glomerular Filtration Rate 45, BUN/Creatinine Ratio 37, Glucose Level 143H, Calcium Level 8.6, Corrected Calcium 9.2, Total Bilirubin 0.3, Aspartate Amino Transf (AST/SGOT) 20, Alanine Aminotransferase (ALT/SGPT) 45, Alkaline Phosphatase 48, Total Protein 6.2L, Albumin 3.3 09/28/19 05:40: White Blood Count 6.0, Red Blood Count 3.22L, Hemoglobin 9.4L, Hematocrit 30L, Mean Corpuscular Volume 93, Mean Corpuscular Hemoglobin 29, Mean Corpuscular Hemoglobin Concent 32, Red Cell Distribution Width 14.1, Platelet Count 383, Mean Platelet Volume 9.8, Neutrophils (%) (Auto) 54, Lymphocytes (%) (Auto) 33, Monocytes (%) (Auto) 10, Eosinophils (%) (Auto) 3, Basophils (%) (Auto) 1, Neutrophils # (Auto) 3.2, Lymphocytes # (Auto) 2.0, Monocytes # (Auto) 0.6, Eosinophils # (Auto) 0.2, Basophils # (Auto) 0.0, Sodium Level 144, Potassium Level 4.0, Chloride Level 102, Carbon Dioxide Level 30, Anion Gap 12, Blood Urea Nitrogen 49H, Creatinine 1.33H, Estimat Glomerular Filtration Rate 38, BUN/Creatinine Ratio 37, Glucose Level 166H, Calcium Level 9.0, Corrected Calcium 9.2, Total Bilirubin 0.4, Aspartate Amino Transf (AST/SGOT) 17, Alanine Aminotransferase (ALT/SGPT) 33, Alkaline Phosphatase 57, Total Protein 7.0, Albumin 3.8, Neutrophils % (Manual) 51, Lymphocytes % (Manual) 29, Monocytes % (Manual) 15, Eosinophils % (Manual) 3, Atypical Lymphocytes 2, Hypochromasia SLIGHT 10/01/19 05:25: White Blood Count 5.7, Red Blood Count 2.97L, Hemoglobin 8.8L, Hematocrit 28L, Mean Corpuscular Volume 94, Mean Corpuscular Hemoglobin 30, Mean Corpuscular Hemoglobin Concent 32, Red Cell Distribution Width 15.0H, Platelet Count 346, Mean Platelet Volume 8.5, Neutrophils (%) (Auto) 53, Lymphocytes (%) (Auto) 33, Monocytes (%) (Auto) 11, Eosinophils (%) (Auto) 3, Basophils (%) (Auto) 1, Neutrophils # (Auto) 3.0, Lymphocytes # (Auto) 1.9, Monocytes # (Auto) 0.6, Eosinophils # (Auto) 0.2, Basophils # (Auto) 0.0, Sodium Level 143, Potassium Level 3.9, Chloride Level 104, Carbon Dioxide Level 29, Anion Gap 10, Blood Urea Nitrogen 42H, Creatinine 1.34H, Estimat Glomerular Filtration Rate 38, BUN/Creatinine Ratio 31, Glucose Level 163H, Calcium Level 8.6, Corrected Calcium 9.0, Total Bilirubin 0.3, Aspartate Amino Transf (AST/SGOT) 15, Alanine Aminotransferase (ALT/SGPT) 21, Alkaline Phosphatase 62, Total Protein 6.2L, Albumin 3.5 Pending Labs Laboratory Tests 09/26/19 05:00: White Blood Count 6.2, Red Blood Count 2.70, Hemoglobin 7.9, Hematocrit 25, Mean Corpuscular Volume 92, Mean Corpuscular Hemoglobin 29, Mean Corpuscular Hemoglobin Concent 32, Red Cell Distribution Width 13.3, Platelet Count 281, Mean Platelet Volume 10.0, Neutrophils (%) (Auto) 53, Lymphocytes (%) (Auto) 35, Monocytes (%) (Auto) 10, Eosinophils (%) (Auto) 3, Basophils (%) (Auto) 1, Neutrophils # (Auto) 3.3, Lymphocytes # (Auto) 2.1, Monocytes # (Auto) 0.6, Eosinophils # (Auto) 0.2, Basophils # (Auto) 0.0, Sodium Level 144, Potassium Level 3.3, Chloride Level 101, Carbon Dioxide Level 31, Anion Gap 12, Blood Urea Nitrogen 43, Creatinine 1.16, Estimat Glomerular Filtration Rate 45, BUN/Creatinine Ratio 37, Glucose Level 143, Calcium Level 8.6, Corrected Calcium 9.2, Total Bilirubin 0.3, Aspartate Amino Transf (AST/SGOT) 20, Alanine Aminotransferase (ALT/SGPT) 45, Alkaline Phosphatase 48, Total Protein 6.2, Albumin 3.3 09/28/19 05:40: White Blood Count 6.0, Red Blood Count 3.22, Hemoglobin 9.4, Hematocrit 30, Mean Corpuscular Volume 93, Mean Corpuscular Hemoglobin 29, Mean Corpuscular Hemoglobin Concent 32, Red Cell Distribution Width 14.1, Platelet Count 383, Mean Platelet Volume 9.8, Neutrophils (%) (Auto) 54, Lymphocytes (%) (Auto) 33, Monocytes (%) (Auto) 10, Eosinophils (%) (Auto) 3, Basophils (%) (Auto) 1, Neutrophils # (Auto) 3.2, Lymphocytes # (Auto) 2.0, Monocytes # (Auto) 0.6, Eosinophils # (Auto) 0.2, Basophils # (Auto) 0.0, Sodium Level 144, Potassium Level 4.0, Chloride Level 102, Carbon Dioxide Level 30, Anion Gap 12, Blood Urea Nitrogen 49, Creatinine 1.33, Estimat Glomerular Filtration Rate 38, BUN/Creatinine Ratio 37, Glucose Level 166, Calcium Level 9.0, Corrected Calcium 9.2, Total Bilirubin 0.4, Aspartate Amino Transf (AST/SGOT) 17, Alanine Aminotransferase (ALT/SGPT) 33, Alkaline Phosphatase 57, Total Protein 7.0, Al bumin 3.8, Neutrophils % (Manual) 51, Lymphocytes % (Manual) 29, Monocytes % (Manual) 15, Eosinophils % (Manual) 3, Atypical Lymphocytes 2, Hypochromasia SLIGHT 10/01/19 05:25: White Blood Count 5.7, Red Blood Count 2.97, Hemoglobin 8.8, Hematocrit 28, Mean Corpuscular Volume 94, Mean Corpuscular Hemoglobin 30, Mean Corpuscular Hemoglobin Concent 32, Red Cell Distribution Width 15.0, Platelet Count 346, Mean Platelet Volume 8.5, Neutrophils (%) (Auto) 53, Lymphocytes (%) (Auto) 33, Monocytes (%) (Auto) 11, Eosinophils (%) (Auto) 3, Basophils (%) (Auto) 1, Neutrophils # (Auto) 3.0, Lymphocytes # (Auto) 1.9, Monocytes # (Auto) 0.6, Eosinophils # (Auto) 0.2, Basophils # (Auto) 0.0, Sodium Level 143, Potassium Level 3.9, Chloride Level 104, Carbon Dioxide Level 29, Anion Gap 10, Blood Urea Nitrogen 42, Creatinine 1.34, Estimat Glomerular Filtration Rate 38, BUN/Creat inine Ratio 31, Glucose Level 163, Calcium Level 8.6, Corrected Calcium 9.0, Total Bilirubin 0.3, Aspartate Amino Transf (AST/SGOT) 15, Alanine Aminotransferase (ALT/SGPT) 21, Alkaline Phosphatase 62, Total Protein 6.2, Albumin 3.5 Discharge Home Medications: Active Scripts Active Alprazolam 0.25 Mg Tablet 0.25 Mg PO Q8H PRN Aspirin EC (Aspirin) 81 Mg Tablet.dr 81 Mg PO DAILY Pantoprazole Sodium 40 Mg Tablet.dr 40 Mg PO BID Furosemide 40 Mg Tablet 40 Mg PO DAILY Reported Fenofibrate 54 Mg Tablet 54 Mg PO DAILY Atorvastatin Calcium 10 Mg Tablet 10 Mg PO DAILY Amlodipine Besylate 5 Mg Tablet 5 Mg PO DAILY Metoprolol Succinate 100 Mg Tab.er.24h 100 Mg PO DAILY Glyburide 2.5 Mg Tablet 2.5 Mg PO DAILY Lisinopril-Hctz 20-25 mg Tab (Lisinopril/Hydrochlorothiazide) 1 Each Tablet 1 Ea PO DAILY Hydralazine HCl 25 Mg Tablet 25 Mg PO BID Instructions to patient/family Please see electronic discharge instructions given to patient. Diagnosis/Problems Diagnosis/Problems (1) Respiratory distress (2) CAD (coronary artery disease) (3) Diabetes (4) Arthritis (5) Hypercapnia (6) Hyperlipidemia (7) Hypertension (8) BiPAP (biphasic positive airway pressure) dependence (9) Type 2 AMI (acute myocardial infarction) (10) Atrial fibrillation with rapid ventricular response (11) Hx of CABG (12) Acute heart failure Status: Acute (13) Melena (14) Anemia, iron deficiency Clinical Quality Measures DVT/VTE Risk/Contraindication: Risk Factor Score Per Nursin RFS Level Per Nursing on Admit: 4+=Very High KEILA MARTINEZ DO Oct 01, 2019 06:24
[2019-10-01] MEDS: glyBURIDE 2.5 MG (MICRONASE) TAB PO SCH (06:32)
[2019-10-01] MEDS: LORATADINE (CLARITIN) 10 MG TAB PO SCH (08:23)
[2019-10-01] MEDS: ASPIRIN 81 MG CHEW (CHILDREN'S ASA) PO SCH (08:23)
[2019-10-01] MEDS: PANTOPRAZOLE 40 MG (PROTONIX) TAB PO SCH (08:23)
[2019-10-01] MEDS: FUROSEMIDE 40 MG (LASIX) TAB PO SCH (08:23)
[2019-10-01] MEDS: KCL 10 MEQ TAB (MICRO K) PO SCH (08:23)
[2019-10-01] MEDS: polyethylene glycoL POWDER 17 GM (MIRALAX) PACK PO SCH (08:23)
[2019-10-01] MEDS: DOCUSATE SODIUM 100 MG (COLACE) CAP PO SCH (08:23)
[2019-10-01] MEDS: SENNA W/DOCUSATE (SENOKOT S) TABLET PO SCH (08:23)
[2019-10-01] MEDS: meTOprolol SUCCINATE 100 MG (TOPROL XL) TAB PO SCH (08:23)
[2019-10-01] MEDS: OXYMETAZOLINE (AFRIN) 0.05% NA 30 ML BTL SCH (08:25)
--- NOTE | 2019-10-01 09:35 | Therapy Team Discharge Summary ---
Therapy Discharge Summary Discharge Recommendations Date of Discharge Physical Therapy Patient came to rehab with acute heart failure. Upon evaluation patient performed bed mobility and supine <-> sit with SBA, sit <-> stand SBA, transfers SBA, car transfer SBA, ambulated 120' with a rolling walker with SBA (including 50' with at least 2 turns of 90 degrees but needs CGA when ambulating 10' over an uneven surface), and went up and down 1 step using a rolling walker with CGA. Patient has been performing bed mobility and transfer training, balance and endurance training, functional strengthening, stair training, gait training, and education. Patient has made good progress and has met all of her fci goals. Now, patient performs bed mobility and transfers with independence, independent with car transfer, ambulates 150' with a rolling walker with independence (including 50' with at least 2 turns of 90 degrees and 10' over an uneven surface), can go up and down 4 steps using 2 handrails with independence, and can sack department supervisor an object from the floor with independence. Patient is discharging from this facility today and will be discharged from PT at this time. Occupational Therapy Decreased Activ Tolerance, Impaired Funct Balance, Impaired Self-Care Skills PT Skilled Nursing Goals Skilled Nursing Goals PT Skilled Nursing Goals Time Frame: Oct 16, 2019 Roll Left to Right (QC): 6 Sit to Lying (QC): 6 Lying-Sitting on Side/Bed(QC): 6 Sit to Stand (QC): 6 Chair/Ayu-hm-Ejtkv Xfer(QC): 6 Car Transfer (QC): 6 Does the Patient Walk: Yes Walk 10 feet (QC): 6 Walk 10ft-Uneven Surface(QC): 6 Walk 50ft with 2 Turns (QC): 6 Walk 150 ft (QC): 6 Does the Pt use WC or Scooter?: No Wheel 50 feet with 2 turns (QC: 9 1 Step (curb) (QC): 4 4 Steps (QC): 4 12 Steps (QC): 88 Picking up an Object (QC): 88 OT Skilled Nursing Goals Crook Operator Goals Time Frame: Oct 09, 2019 Eating (FIM): 6 Eating (QC): 6 (met) Oral Hygiene (QC): 6 (met) Shower/Bathe Self (QC): 6 (met) Upper Body Dressing (QC): 6 (met) Lower Body Dressing (QC): 6 (met) On/Off Footwear (QC): 6 (met) Toileting(FIM): 6 Toileting Hygiene (QC): 6 (met) Toilet/Commode Transfer (QC): 6 1=Demonstrate adherence to instructed precautions during ADL tasks. 2=Patient will verbalize/demonstrate understanding of assistive devices/modifications for ADL. 3=Patient will improve strength/tolerance for activity to enable patient to perform ADL's. ISABEL TAMAYO PT Oct 01, 2019 09:35
--- NOTE | 2019-10-01 09:35 | NUR ---
F/U WITH DR. MARTINEZ ON 10/12/19 AT 1:15 PM. F/U WITH DR. DORSEY ON 10/15/19 AT 1:50 PM. NO NEED FOR F/U WITH DR. PEARSON PER DR. MARTINEZ.
[2019-10-01] MEDS ORDERED: ALPR0.254 PO (09:36)
[2019-10-01] MEDS ORDERED: ASPI-983 PO (09:36)
--- NOTE | 2019-10-01 09:38 | Progress Note - Cardiology ---
Cardiology SOAP Progress Note Subjective: No cp or palp or syncope or shortness of breath at rest No n/v/d Weakness improved Going home today Objective: I&O/Vital Signs 10/01/19 10/01/19 05:21 08:57 Temp 36.4 Pulse 68 Resp 18 B/P (MAP) 134/61 (85) Pulse Ox 96 O2 Delivery Room Air Room Air 10/01/19 00:00 Intake Total 740 ml Balance 740 ml Constitutional: AAO x 3 Respiratory: chest is bilaterally symmetric, lungs clear to auscultation Cardiovascular: regular rate-rhythm, S1 and S2; No diastolic murmur, No systolic murmur Gastrointestional: soft, audible bowel sounds Extremities: other (mod bilat LE swelling - SKYLER wraps in place) Neurologic/Psychiatric: grossly intact (moves all extremities) Skin: No rash on exposed areas, No ulcerations on exposed areas Results/Procedures: Labs Laboratory Tests 10/01/19 05:25: White Blood Count 5.7, Red Blood Count 2.97L, Hemoglobin 8.8L, Hematocrit 28L, Mean Corpuscular Volume 94, Mean Corpuscular Hemoglobin 30, Mean Corpuscular Hemoglobin Concent 32, Red Cell Distribution Width 15.0H, Platelet Count 346, Mean Platelet Volume 8.5, Neutrophils (%) (Auto) 53, Lymphocytes (%) (Auto) 33, Monocytes (%) (Auto) 11, Eosinophils (%) (Auto) 3, Basophils (%) (Auto) 1, Neutrophils # (Auto) 3.0, Lymphocytes # (Auto) 1.9, Monocytes # (Auto) 0.6, Eosinophils # (Auto) 0.2, Basophils # (Auto) 0.0, Sodium Level 143, Potassium Level 3.9, Chloride Level 104, Carbon Dioxide Level 29, Anion Gap 10, Blood Urea Nitrogen 42H, Creatinine 1.34H, Estimat Glomerular Filtration Rate 38, BUN/Creatinine Ratio 31, Glucose Level 163H, Calcium Level 8.6, Corrected Calcium 9.0, Total Bilirubin 0.3, Aspartate Amino Transf (AST/SGOT) 15, Alanine Aminotransferase (ALT/SGPT) 21, Alkaline Phosphatase 62, Total Protein 6.2L, Albumin 3.5 A/P: Assessment: Status post acute respiratory failure - resolved Acute diastolic congestive heart failure - clinically compensated Echocardiogram of September 20, 2019 shows LVEF 55-65%. LA mod dilated. Mild to mod TR. PASP approx 30 mmHg. Grade 1 diastolic dysfunction. Non-STEMI, Coronary artery disease history of CABG in 2010 using COLES to LAD, vein graft to the right coronary artery and vein graft to the circumflex artery, no recent cardiac workup. However she does not want coronary angiography. Per Dr. Locke Paroxysmal atrial fibrillation with RVR, patient refused oral anticoagulation. She understands the risk of stroke. Currently SR History of chest pain in the past, no recent episodes of chest pain Hypertension Hyperlipidemia - statin Diabetes mellitus, followed and managed by primary care physician Plan: I again reviewed her CV issues with her, including PAF, and answered her questions. She still does not want OAC Continue current medication regimen, including ASA Outpt f/u advised YEFRI DORSEY MD FACP FAC CCDS Oct 01, 2019 09:38
--- NOTE | 2019-10-01 09:38 | D/C HH Face to Face Order ---
D/C Face to Face Orders Reconcile Patient Problems Problems Reviewed?: Yes Instructions for Patient [facility] Home Health Patient Instructions/FollowUp: Dr Yung in 2 weeks Physician to follow Patient: Aga Discharge Diet for Home: ADA Diet Patient Problems: CHF AF Anemia Anxiety Goals for Patient: Strengthen and gain confidence Patient Data-Allergies,Ht & Wt Patient Allergies: Coded Allergies: Penicillins (Unverified Allergy, Mild, 12/18/08) Home Health Need/Face to Face Date of Face to Face: Oct 01, 2019 Clinical Findings: Instability, Muscle weakness I have seen Pt [id number]: Yes Discharged To: Home Diagnosis/Conditions: CHF AF Anemia Anxiety Patient is Homebound due to: Shortness of breath/distress Homebound Status Due to the above stated illness, injury or surgical procedure (medical condition or diagnosis) and associated clinical findings, the patient is homebound because of his/her inability to leave home except with aid of a supportive device and/or person AND leaving the home requires a considerable and taxing effort or is medically contraindicated. Pt req the following assistanc: [facility] Nursing Orders Home Health Services Order: Nursing Services (med administration and organization and check o2 sats and BP) Certify Stmt I certify that this patient is under my care and that I, a nurse practitioner or a physician; a virtual customer assistant working with me, had a face to face encounter that -meets the physician face to face encounter requirements with this patient as dated. KEILA YUNG DO Oct 01, 2019 09:38
--- NOTE | 2019-10-01 12:05 | NUR ---
provided prayer and Communion.
--- NOTE | 2019-10-01 12:48 | NUR ---
CM/SS DISCHARGE Patient discharged home as planned. HH: Physician ordered RN for Rx set up and monitor, BP and O2 checks. Coordinated with patient preferred agency, [facility]. Agency confirmed they will provide services starting tomorrow. DME: Hip Kit was delivered. Patient continues to state her son will assist her with ordering of grab bars with suction applications. Unit RN was aware of all plans. Patient has self directed her transportation with family.
--- NOTE | 2019-10-01 13:06 | Therapy Team Discharge Summary ---
Therapy Discharge Summary Discharge Recommendations Date of Discharge Occupational Therapy Pt admitted to ARU on 09/18/2019 with dx of acute heart failure. At evaluation, pt required set up assistance with feeding and oral hygiene, min A showering, SBA upper body dressing, CGA lower body dressing, min A footwear, and CGA with toileting. OT txs focused on increasing independence and safety with ADLs, increasing UE strength, and increasing functional endurance with tasks. Pt is now independent with all ADLs. AE recommendation includes sock aide, pt reports she already has a walk-in shower with a built in seat. Pt made good progress towards goals, meeting all goals at discharge. Pt is discharging from facility on this date, thus d/c from OT at this time. Decreased Activ Tolerance PT Supplier Quality Manager Goals Supplier Quality Manager Goals PT Retirement Goals Time Frame: Oct 16, 2019 Roll Left to Right (QC): 6 Sit to Lying (QC): 6 Lying-Sitting on Side/Bed(QC): 6 Sit to Stand (QC): 6 Chair/Sdq-qy-Bbsyh Xfer(QC): 6 Car Transfer (QC): 6 Does the Patient Walk: Yes Walk 10 feet (QC): 6 Walk 10ft-Uneven Surface(QC): 6 Walk 50ft with 2 Turns (QC): 6 Walk 150 ft (QC): 6 Does the Pt use WC or Scooter?: No Wheel 50 feet with 2 turns (QC: 9 1 Step (curb) (QC): 4 4 Steps (QC): 4 12 Steps (QC): 88 Picking up an Object (QC): 88 OT Supplier Quality Manager Goals Supplier Quality Manager Goals Time Frame: Oct 09, 2019 Eating (FIM): 6 Eating (QC): 6 (met) Oral Hygiene (QC): 6 (met) Shower/Bathe Self (QC): 6 (met) Upper Body Dressing (QC): 6 (met) Lower Body Dressing (QC): 6 (met) On/Off Footwear (QC): 6 (met) Toileting(FIM): 6 Toileting Hygiene (QC): 6 (met) Toilet/Commode Transfer (QC): 6 (met) 1=Demonstrate adherence to instructed precautions during ADL tasks. 2=Patient will verbalize/demonstrate understanding of assistive devices/modifications for ADL. 3=Patient will improve strength/tolerance for activity to enable patient to perform ADL's. TOM HASSAN OT Oct 01, 2019 13:06
[2019-10-01 13:52] VITALS: BP 134/61
== END 2019-10-01 13:57 | disposition home health service (06) | DRG 92 ==
PROVIDERS: ADMIT Internal Medicine; ATTEND Internal Medicine
DX: G72.81 Critical illness myopathy (principal); I50.30 Unspecified diastolic (congestive) heart failure; I11.0 Hypertensive heart disease with heart failure; I48.0 Paroxysmal atrial fibrillation; I25.10 Atherosclerotic heart disease of native coronary artery without angina pectoris; E78.5 Hyperlipidemia, unspecified; M17.0 Bilateral primary osteoarthritis of knee; K64.9 Unspecified hemorrhoids; E87.6 Hypokalemia; E11.42 Type 2 diabetes mellitus with diabetic polyneuropathy; B35.1 Tinea unguium; L84 Corns and callosities; M20.42 Other hammer toe(s) (acquired), left foot; M20.41 Other hammer toe(s) (acquired), right foot; I07.1 Rheumatic tricuspid insufficiency; D50.9 Iron deficiency anemia, unspecified; F41.9 Anxiety disorder, unspecified; I25.2 Old myocardial infarction; Z99.81 Dependence on supplemental oxygen; Z79.84 Long term (current) use of oral hypoglycemic drugs; Z95.1 Presence of aortocoronary bypass graft
CPT/HCPCS: 36415; 80053; 85007; 85025; 85027; 94760

== ENCOUNTER 2020-01-16 09:26 | Inpatient (IN) | payer MEDICARE ==
[~2020-01-16] VITALS: Ht 160 cm; Wt 85.4 kg
[~2020-01-16 09:26] MED LIST changes: +ALPR.25T PO; -ALPRAZolam 0.25 MG (XANAX) TAB PO PRN; +AMLO-250 PO; -AMLO5TAB9 PO; +ASPI-1238 PO; -ASPI-983 PO; -BISACODYL 10 MG SUPP (DULCOLAX) PR PRN; -CALCIUM CARBONATE 500 MG (TUMS) TAB.CHEW PO PRN; -DOCUSATE SODIUM 100 MG (COLACE) CAP PO PRN; -ENOXAPARIN 40 MG/0.4 ML (LOVENOX) SYR SC SCH; -FLEET ENEMA ADULT 1 EA BTL PR PRN; +FURO40TA4 PO; -LACTULOSE SYRUP 10GM/15ML (ENULOSE) 30ML UDC PO PRN; -LOPERAMIDE 2 MG (IMODIUM) TABLET PO PRN; -ONDANSETRON 4 MG (ZOFRAN) ORAL DISSOLVE TAB PO PRN; +PANT40TA52 PO; -diphenhydrAMINE 25 MG TAB (BENADRYL) PO PRN; -guaiFENesin/CODEINE (ROBITUSSIN AC) 10ML UDC PO PRN
--- NOTE | 2020-01-16 09:50 | NUR ---
DR COMBS NOTIFIED PT REQUEST BIPAP.
--- NOTE | 2020-01-16 09:52 | ED Respiratory ---
General Stated Complaint: SOA Source: patient Exam Limitations: no limitations History of Present Illness Date Seen by Provider: Jan 16, 2020 Time Seen by Provider: 09:31 Initial Comments Here from home with report of increasing shortness of air over the last day or 2. Has known history of CHF. States has had similar previous a few months ago. She is on Lasix but it is not causing her to urinate very much currently. Does note increased swelling in her legs. She lives at home alone and has food and pharmacy delivered. Only visitor it's neighbor who is not ill. Denies fever, chills, sore throat, runny nose or diarrhea. Denies contact with COVID-19. Has had some nausea in the mornings over the past couple of mornings. Previous admissions required BiPAP and she is asking for that currently. EMS noted that she was in the 80s on her oxygen saturation on 2 L. This went up to 90 at 4 L via nasal cannula. She desats rapidly with any activity. Timing/Duration: yesterday, getting worse Severity: moderate, severe Prior Episodes/Possible Cause: occasional episodes Modifying Factors: Improves With Oxygen Associated Symptoms: No chest pain/soreness, No cough, No fever/chills, No nasal congestion, No nasal drainage; shortness of breath; No sinus infection, No sore throat, No wheezing Allergies and Home Medications Allergies Coded Allergies: Penicillins (Unverified Allergy, Mild, 12/18/08) Home Medications ALPRAZolam 0.25 Mg Tablet, 0.25 MG PO Q8H PRN for ANXIETY Prescribed by: KEILA MARTINEZ on 10/01/19935 Amlodipine Besylate 5 Mg Tablet, 5 MG PO DAILY, (Reported) Aspirin 81 Mg Tablet.dr, 81 MG PO DAILY Prescribed by: KEILA MARTINEZ on 10/01/19935 Atorvastatin Calcium 10 Mg Tablet, 10 MG PO DAILY, (Reported) Fenofibrate 54 Mg Tablet, 54 MG PO DAILY, (Reported) Furosemide 40 Mg Tablet, 40 MG PO DAILY Prescribed by: KEILA MARTINEZ on 09/30/192108 Glyburide 2.5 Mg Tablet, 2.5 MG PO DAILY, (Reported) Hydralazine HCl 25 Mg Tablet, 25 MG PO BID, (Reported) Lisinopril/Hydrochlorothiazide 1 Each Tablet, 1 EA PO DAILY, (Reported) Metoprolol Succinate 100 Mg Tab.er.24h, 100 MG PO DAILY, (Reported) Pantoprazole Sodium 40 Mg Tablet.dr, 40 MG PO BID Prescribed by: KEILA MARTINEZ on 09/30/192108 Patient Home Medication List Home Medication List Reviewed: Yes Review of Systems Review of Systems Constitutional: see HPI EENTM: no symptoms reported Respiratory: see HPI, dyspnea on exertion Cardiovascular: No chest pain; edema Gastrointestinal: No abdominal pain; nausea Genitourinary: no symptoms reported Musculoskeletal: no symptoms reported Psychiatric/Neurological: Weakness All Other Systems Reviewed Negative Unless Noted: Yes Past Dfnalin-Erpvap-Fqjsdy Hx Past Med/Social Hx: Reviewed Nursing Past Med/Soc Hx Patient Social History Alcohol Use: Denies Use Recreational Drug Use: No Smoking Status: Never a Smoker Recent Hopitalizations: No Seasonal Allergies Seasonal Allergies: No Past Medical History Surgeries: Yes (CABG) CABG, Hysterectomy Respiratory: No Asthma Cardiac: Yes (CABG) Atrial Fibrillation, Coronary Artery Disease, High Cholesterol, Hypertension Neurological: No Reproductive Disorders: No Genitourinary: No Gastrointestinal: No Gastrointestinal Bleed, Hemorrhoids Musculoskeletal: Yes Arthritis Endocrine: Yes Diabetes, Non-Insulin dep HEENT: Yes (WEARS GLASSES) Cancer: Yes Ovarian Psychosocial: No Integumentary: No Blood Disorders: No Family Medical History Reviewed Nursing Family Hx No Pertinent Family Hx Physical Exam Vital Signs - First Documented 01/16/20 01/16/20 10:06 10:09 Temp 35.7 Pulse 68 Resp 25 B/P (MAP) 174/72 (106) Pulse Ox 97 O2 Delivery Nasal Cannula O2 Flow Rate 40.00 Capillary Refill : Height: '" Weight: lbs. oz. kg; 33.75 BMI Method: General Appearance: WD/WN, mild distress HEENT: PERRL/EOMI, pharynx normal Neck: full range of motion, supple Respiratory: respiratory distress (mild), crackles (throughout lower lobes bilateral); No wheezing Cardiovascular: regular rate, rhythm, no murmur Gastrointestinal: non tender, soft Extremities: non-tender, normal inspection Neurologic/Psychiatric: alert, oriented x 3 Skin: normal color, warm/dry Focused Exam Lactate Level 01/16/20 09:55: Lactic Acid Level 0.92 Lactic Acid Level Laboratory Tests Test 01/16/20 09:55 Lactic Acid Level 0.92 MMOL/L (0.50-2.00) Progress/Results/Core Measures Suspected Sepsis SIRS Temperature: Pulse: Respiratory Rate: Laboratory Tests 01/16/20 09:55: White Blood Count 5.9 Blood Pressure / Mean: 01/16/20 09:55: Lactic Acid Level 0.92 Laboratory Tests 01/16/20 09:55: Creatinine 1.40H, INR Comment 1.2, Platelet Count 258, Total Bilirubin 0.6 Results/Orders Lab Results Laboratory Tests Test 01/16/20 09:55 Range/Units White Blood Count 5.9 4.3-11.0 10^3/uL Red Blood Count 4.30 3.80-5.11 10^6/uL Hemoglobin 12.1 11.5-16.0 g/dL Hematocrit 40 35-52 % Mean Corpuscular Volume 92 80-99 fL Mean Corpuscular Hemoglobin 28 25-34 pg Mean Corpuscular Hemoglobin Concent 31 L 32-36 g/dL Red Cell Distribution Width 15.7 H 10.0-14.5 % Platelet Count 258 130-400 10^3/uL Mean Platelet Volume 9.9 9.0-12.2 fL Immature Granulocyte % (Auto) 1 % Neutrophils (%) (Auto) 77 H 42-75 % Lymphocytes (%) (Auto) 16 12-44 % Monocytes (%) (Auto) 6 0-12 % Eosinophils (%) (Auto) 1 0-10 % Basophils (%) (Auto) 1 0-10 % Neutrophils # (Auto) 4.5 1.8-7.8 10^3/uL Lymphocytes # (Auto) 0.9 L 1.0-4.0 10^3/uL Monocytes # (Auto) 0.3 0.0-1.0 10^3/uL Eosinophils # (Auto) 0.0 0.0-0.3 10^3/uL Basophils # (Auto) 0.0 0.0-0.1 10^3/uL Immature Granulocyte # (Auto) 0.0 0.0-0.1 10^3/uL Erythrocyte Sedimentation Rate 21 0-30 MM/HR Prothrombin Time 15.8 H 12.2-14.7 SEC INR Comment 1.2 0.8-1.4 Activated Partial Thromboplast Time 34 24-35 SEC D-Dimer 0.59 H 0.00-0.49 UG/ML Urine Color YELLOW Urine Clarity CLEAR Urine pH 6.0 5-9 Urine Specific [place] 1.010 L 1.016-1.022 Urine Protein NEGATIVE NEGATIVE Urine Glucose (UA) NEGATIVE NEGATIVE Urine Ketones NEGATIVE NEGATIVE Urine Nitrite NEGATIVE NEGATIVE Urine Bilirubin NEGATIVE NEGATIVE Urine Urobilinogen 0.2 < = 1.0 MG/DL Urine Leukocyte Esterase NEGATIVE NEGATIVE Urine RBC (Auto) NEGATIVE NEGATIVE Urine RBC RARE /HPF Urine WBC NONE /HPF Urine Crystals NONE /LPF Urine Bacteria NEGATIVE /HPF Urine Casts NONE /LPF Urine Mucus NEGATIVE /LPF Urine Culture Indicated CULTURE PENDING Sodium Level 144 135-145 MMOL/L Potassium Level 4.4 3.6-5.0 MMOL/L Chloride Level 103 98-107 MMOL/L Carbon Dioxide Level 28 21-32 MMOL/L Anion Gap 13 5-14 MMOL/L Blood Urea Nitrogen 39 H 7-18 MG/DL Creatinine 1.40 H 0.60-1.30 MG/DL Estimat Glomerular Filtration Rate 36 BUN/Creatinine Ratio 28 Glucose Level 151 H 70-105 MG/DL Lactic Acid Level 0.92 0.50-2.00 MMOL/L Calcium Level 9.3 8.5-10.1 MG/DL Corrected Calcium 9.3 8.5-10.1 MG/DL Total Bilirubin 0.6 0.1-1.0 MG/DL Aspartate Amino Transf (AST/SGOT) 17 5-34 U/L Alanine Aminotransferase (ALT/SGPT) 15 0-55 U/L Alkaline Phosphatase 52 40-136 U/L Troponin I < 0.028 <0.028 NG/ML C-Reactive Protein High Sensitivity 0.60 H 0.00-0.50 MG/DL B-Type Natriuretic Peptide 859.1 H <100.0 PG/ML Total Protein 7.3 6.4-8.2 GM/DL Albumin 4.0 3.2-4.5 GM/DL Procalcitonin 0.05 <0.10 NG/ML My Orders Orders - GT COMBS MD Cbc With Automated Diff (01/16/20 09:43) Comprehensive Metabolic Panel (01/16/20 09:43) Blood Culture (01/16/20:43) Sputum Culture (01/16/20:43) Urinalysis (01/16/20:43) Urine Culture (11/7/20 09:43) Protime With Inr (01/16/20 09:43) Partial Thromboplastin Time (01/16/20 09:43) Chest 1 View, Ap/Pa Only (01/16/20 09:43) Ed Iv/Invasive Line Start (01/16/20 09:43) Ed Iv/Invasive Line Start (01/16/20 09:43) Ekg Tracing (01/16/20:43) Troponin I (01/16/20 09:43) Vital Signs Adult Sepsis Patie Q15M (01/16/20 09:43) O2 (01/16/20 09:43) Remove Rings In Anticipation O (01/16/20:43) Lactic Acid Analyzer (01/16/20:43) Fibrin Degradation Products (01/16/20:43) Procalcitonin (Pct) (01/16/20:43) Hs C Reactive Protein (01/16/20:43) Erythrocyte Sedimentation Rate (01/16/20:43) BNP (01/16/20 09:43) Furosemide Injection (Lasix Injection) (01/16/20 10:00) Catheter(Urinary) Insert & Ass 03,15 (01/16/20 10:00) Medications Given in ED Current Medications Medications Dose Ordered Sig/Nancie Route Start Time Stop Time Status Last Admin Dose Admin Furosemide 40 mg ONCE ONCE IVP 01/16/20 10:00 01/16/20 10:01 DC 01/16/20 10:02 40 MG Vital Signs/I&O 01/16/20 01/16/20 10:06 10:09 Temp 35.7 Pulse 68 73 Resp 25 16 B/P (MAP) 174/72 (106) Pulse Ox 97 96 O2 Delivery Nasal Cannula O2 Flow Rate 40.00 3.00 Capillary Refill : Progress Note : Progress Note Seen and evaluated. Sepsis protocol initiated plus chest workup including EKG, troponin and BNP. We will initiate patient on BiPAP as her O2 saturations are in the upper 80s on 4 L currently and patient is requesting and states that makes her feel much better. Does have significant history of heart failure and patient will benefit. Monitor patient. 1012: Patient initiated on BiPAP at 18/8 and 40% with minimum rate of 12. O2 sats no 97% and she feels much more comfortable. Chest x-ray does show findings concerning for heart failure. She does have Renae catheter and Lasix 40 mg IV ordered. Monitor patient. 1117: Patient has been seen in the emergency department by Dr. Martinez. Patient to be admitted to Dr. Morales, hospitalist on-call. I discussed the case with her about 1117 and she accepts patient for admission. I did discuss the case with Dr. Locke, on-call for cardiology. He agrees with Lasix 40 mg IV twice a day and continuing BiPAP. Patient to be admitted to cardiac step down. Discussed with patient who agrees with plan. No laboratory her historical indication of COVID-19 in no further testing indicated at this point. This was discussed with Dr. Morales as well. Admit, inpatient status. Patient agrees with plan. ECG Initial ECG Impression Date: Jan 16, 2020 Initial ECG Impression Time: 09:49 Initial ECG Rate: 73 Comment Sinus rhythm with 100 a slide and artifact. Rightward axis. No evidence of ST elevation NE. Change from previous of 09/18/19 which was atrial flutter. In terpreted by me. Diagnostic Imaging Diagonstic Imaging: Xray Plain Films/CT/US/NM/MRI: chest Comments NAME: BEV RODRIGUEZ [facility] REC#: [id number] PT STATUS: REG ER : 1935 PHYSICIAN: GT COMBS MD ADMIT DATE: 01/16/20/ER Signed Date of Exam:01/16/20 CHEST 1 VIEW, AP/PA ONLY CHEST 1 VIEW, AP/PA ONLY INDICATION: Sepsis. COMPARISON: 09/23/2019 FINDINGS: Worsening of bilateral perihilar heterogeneous consolidations. Small bilateral pleural effusions. No pneumothorax. Cardiac silhouette is enlarged and changes of CABG are noted. IMPRESSION: 1. Worsening central pulmonary opacities may be due to pulmonary edema or multifocal infection. 2. Small bilateral pleural effusions are present. Dictated by: Dictated on workstation # [id number] Dict: 01/16/20 1006 Trans: 01/16/20 1008 [id number] Interpreted by: PAZ BOLANOS MD Electronically signed by: PAZ BOLANOS MD 01/16/20 1008 Reviewed: Reviewed by Me Departure Communication (Admissions) Time/Spoke to Admitting Phy: 11:17 Time/Spoke to Consulting Phy: 11:24 Impression Primary Impression: Acute on chronic heart failure Qualified Codes: I50.9 - Heart failure, unspecified Additional Impression: Respiratory failure with hypoxia Qualified Codes: J96.21 - Acute and chronic respiratory failure with hypoxia Disposition: ADMITTED INPATIENT Condition: Stable Admissions Decision to Admit Reason: Admit from ER (General) Decision to Admit/Date: Jan 16, 2020 Time/Decision to Admit Time: 10:09 Departure-Patient Inst. Referrals: KEILA MARTINEZ DO (PCP/Family) Primary Care Physician GT COMBS MD Jan 16, 2020 09:52
--- NOTE | 2020-01-16 09:56 | NUR ---
PT PULSE OX DROPPED TO 83% ON 3L. INCREASED TO 6L NC. DR NOTIFIED. RT GOWNING UP TO COME IN ROOM TO SET UP BIPAP.
[2020-01-16] MEDS ORDERED: FUROSEMIDE 40 MG/4 ML INJ (LASIX) IVP ONE (10:00)
[2020-01-16 10:06] VITALS: BP 174/92
--- NOTE | 2020-01-16 10:08 | Diagnostic Imaging Report ---
CHEST 1 VIEW, AP/PA ONLY INDICATION: Sepsis. COMPARISON: 09/23/2019 FINDINGS: Worsening of bilateral perihilar heterogeneous consolidations. Small bilateral pleural effusions. No pneumothorax. Cardiac silhouette is enlarged and changes of CABG are noted. IMPRESSION: 1. Worsening central pulmonary opacities may be due to pulmonary edema or multifocal infection. 2. Small bilateral pleural effusions are present. Dictated by: Dictated on workstation # [id number]
[2020-01-16 10:15] LABS: BASOPHILS % (AUTO) 1 % (0-10); EOSINOPHILS % (AUTO) 1 % (0-10); HEMATOCRIT 40 % (35-52); HEMOGLOBIN 12.1 g/dL (11.5-16.0); LYMPHOCYTES # (AUTO) 0.9 10^3/uL (1.0-4.0); LYMPHOCYTES % (AUTO) 16 % (12-44); MEAN CORPUSCULAR HEMOGLOBIN 28 pg (25-34); MEAN CORPUSCULAR HGB CONC 31 g/dL (32-36); MEAN CORPUSCULAR VOLUME 92 fL (80-99); MEAN PLATELET VOLUME 9.9 fL (9.0-12.2); MONOCYTES # (AUTO) 0.3 10^3/uL (0.0-1.0); MONOCYTES % (AUTO) 6 % (0-12); NEUTROPHILS # (AUTO) 4.5 10^3/uL (1.8-7.8); NEUTROPHILS % (AUTO) 77 % (42-75); PLATELET COUNT 258 10^3/uL (130-400); WHITE BLOOD COUNT 5.9 10^3/uL (4.3-11.0)
[2020-01-16 10:17] LABS: BILIRUBIN,URINE NEGATIVE (NEGATIVE); CLARITY,URINE CLEAR; COLOR,URINE YELLOW; GLUCOSE, URINE (UA) NEGATIVE (NEGATIVE); KETONES,URINE NEGATIVE (NEGATIVE); LEUKOCYTE ESTERASE ,URINE NEGATIVE (NEGATIVE); NITRITE,URINE NEGATIVE (NEGATIVE); PROTEIN,URINE NEGATIVE (NEGATIVE)
[2020-01-16 10:25] LABS: CHLORIDE 103 MMOL/L (98-107); POTASSIUM 4.4 MMOL/L (3.6-5.0); SODIUM 144 MMOL/L (135-145)
[2020-01-16 10:26] LABS: CALCIUM 9.3 MG/DL (8.5-10.1)
[2020-01-16 10:27] LABS: GLUCOSE 151 MG/DL (70-105); TOTAL PROTEIN 7.3 GM/DL (6.4-8.2)
[2020-01-16 10:28] LABS: CARBON DIOXIDE 28 MMOL/L (21-32)
[2020-01-16 10:29] LABS: BILIRUBIN,TOTAL 0.6 MG/DL (0.1-1.0)
[2020-01-16 10:31] LABS: ALKALINE PHOSPHATASE 52 U/L (40-136); GFR ESTIMATED 36
[2020-01-16 10:32] LABS: BUN/CREATININE RATIO 28
[2020-01-16 10:34] LABS: ALANINE AMINOTRANSFERASE 15 U/L (0-55); BACTERIA,URINE NEGATIVE /HPF; RBC,URINE RARE /HPF
[2020-01-16 10:36] LABS: INR 1.2 (0.8-1.4); PROTHROMBIN TIME PATIENT 15.8 SEC (12.2-14.7)
[2020-01-16 10:37] LABS: FIBRIN DEGRADATION PRODUCTS 0.59 UG/ML (0.00-0.49)
[2020-01-16 10:43] LABS: ERYTHROCYTE SEDIMENTATION RATE 21 MM/HR (0-30)
--- NOTE | 2020-01-16 11:28 | NUR ---
RESTING IN BED ET DENIES NEEDS AT THIS TIME.
--- NOTE | 2020-01-16 11:30 | NUR ---
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
--- NOTE | 2020-01-16 11:48 | History & Physical ---
History of Present Illness HPI/Chief Complaint CC: Dyspnea from AECHF HPI: This is an 84yoWF clinic patient of [facility] for the past 17 years who has a h/o CHF with recent hospital stay for new onset CHF then new onset AF transient type who presented to the hospital with severe dyspnea. Dr Locke has been consulted. 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 Lasix had been given 40mg PO every other day and had previously had ARF due to Lasix 40mg daily so that had been adjusted a few times since last hospitalized. Creatinine elevation required DC ACEi. Patient has been compliant with meds. No chest pain and no fever and no evidence of any COVID issues. Source: patient, RN/MD Exam Limitations: no limitations Date Seen 01/16/20 Time Seen by a Provider: 10:45 Attending Physician PCP Telma Yung DO Referring Physician Date of Admission Home Medications & Allergies Home Medications Reviewed patient Home Medication Reconciliation performed by pharmacy medication reconciliations coffee machine technician and/or nursing. Patients Allergies have been reviewed. Allergies Allergies Coded Allergies Penicillins (Unverified Allergy, Mild, 12/18/08) Past Wjuhbpz-Rrdnuy-Frfrcc Hx Past Med/Social Hx: Reviewed Nursing Past Med/Soc Hx, Reviewed and Corrections made Patient Social History Marrital Status: Employed/Student: retired Alcohol Use: Denies Use Recreational Drug Use: No Smoking Status: Never a Smoker Recent Foreign Travel: No Contact w/other who traveled: No Recent Hopitalizations: No Recent Infectious Disease Expo: No Seasonal Allergies Seasonal Allergies: No Past Medical History Surgeries: CABG, Hysterectomy Cardiac: Atrial Fibrillation, Cardiomyopathy, Coronary Artery Disease, High Cholesterol, Hypertension Reproductive: No Gastrointestinal: Gastrointestinal Bleed, Hemorrhoids Musculoskeletal: Arthritis Endocrine: Diabetes, Non-Insulin dep Cancer: Ovarian History of Blood Disorders: No Family History Reviewed Nursing Family Hx No Pertinent Family Hx Review of Systems Constitutional: see HPI Respiratory: dyspnea on exertion, short of breath, wheezing Cardiovascular: edema Physical Exam Physical Exam Vital Signs Vital Signs - First Documented 01/16/20 01/16/20 01/16/20 10:06 10:09 13:00 Temp 35.7 Pulse 68 Resp 25 B/P (MAP) 174/72 (106) Pulse Ox 97 O2 Delivery Nasal Cannula O2 Flow Rate 40.00 FiO2 30 Capillary Refill : Less Than 3 Seconds Height, Weight, BMI Height: '" Weight: lbs. oz. kg; 31.00 BMI Method: General Appearance: No Apparent Distress, WD/WN, Anxious, Chronically ill Eyes: Bilateral Eye Normal Inspection, Bilateral Eye PERRL HEENT: PERRL/EOMI, Normal ENT Inspection, Pharynx Normal Neck: Full Range of Motion, Normal Inspection, Non Tender, Supple, Carotid Bruit Respiratory: Chest Non Tender, No Accessory Muscle Use, No Respiratory Distress, Decreased Breath Sounds Cardiovascular: Regular Rate, Rhythm, No Gallop, No JVD, No Murmur, Normal Peripheral Pulses Gastrointestinal: Normal Bowel Sounds, No Organomegaly, No Pulsatile Mass, Non Tender, Soft Back: Normal Inspection, No CVA Tenderness, No Vertebral Tenderness Extremity: Normal Capillary Refill, Normal Inspection, Normal Range of Motion, Non Tender, No Calf Tenderness, Pedal Edema Neurologic/Psychiatric: Alert, Oriented x3, No Motor/Sensory Deficits, Normal Mood/Affect Skin: Normal Color, Warm/Dry Lymphatic: No Adenopathy Results Results/Procedures Labs Laboratory Tests 01/16/20 09:55 Patient resulted labs reviewed. 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 h/o transient PAF last admit Elevated troponin last visit Plan: IV Lasix biPAP Pain control Dr Locke consult Lovenox DVT PPx Admission Status: Inpatient Order (span 2 midnights) Reason for Inpatient Admission: AECHF Diagnosis/Problems Diagnosis/Problems (1) Acute on chronic heart failure Status: Acute Qualifiers: Heart failure type: unspecified Qualified Codes: I50.9 - Heart failure, unspecified (2) Respiratory failure with hypoxia Status: Acute Qualifiers: Chronicity: acute on chronic Qualified Codes: J96.21 - Acute and chronic respiratory failure with hypoxia (3) Anemia, iron deficiency (4) Type 2 AMI (acute myocardial infarction) (5) BiPAP (biphasic positive airway pressure) dependence (6) Hypertension (7) Hyperlipidemia (8) CAD (coronary artery disease) (9) Hx of CABG TELMA YUNG DO Jan 16, 2020 11:48
--- NOTE | 2020-01-16 12:02 | NUR ---
IN TALKING TO PT ABOUT CALLING HER FAMILY. DENIES NEEDS AT THIS TIME. STATES SHE FEELS MUCH BETTER.
[2020-01-16 13:00] VITALS: BP 161/69
[2020-01-16 13:04] VITALS: BP 161/69
[2020-01-16] MEDS ORDERED: DOCUSATE SODIUM 100 MG (COLACE) CAP PO PRN (15:00)
[2020-01-16] MEDS ORDERED: ONDANSETRON 4 MG/2 ML (SDV) Z0FRAN IVP PRN (15:00)
[2020-01-16] MEDS ORDERED: CALCIUM CARBONATE 500 MG (TUMS) TAB.CHEW PO PRN (15:00)
[2020-01-16] MEDS ORDERED: HYDROcodone/APAP 5 MG/325 MG (LORTAB) TAB PO PRN (15:00)
[2020-01-16] MEDS ORDERED: ACETAMINOPHEN 500 MG TAB (TYLENOL) PO PRN (15:00)
[2020-01-16] MEDS ORDERED: diphenhydrAMINE 25 MG TAB (BENADRYL) PO PRN (15:00)
[2020-01-16] MEDS ORDERED: LOPERAMIDE 2 MG (IMODIUM) TABLET PO PRN (15:00)
[2020-01-16] MEDS ORDERED: guaiFENesin/CODEINE (ROBITUSSIN AC) 10ML UDC PO PRN (15:00)
[2020-01-16] MEDS ORDERED: morphine INJ 10 MG/ML 1ML (SYR OR VIAL) IVP PRN (15:00)
[2020-01-16] MEDS ORDERED: ALPRAZolam 0.25 MG (XANAX) TAB PO PRN (15:00)
[2020-01-16] MEDS ORDERED: MELATONIN 3 MG TABLET PO PRN (15:00)
[2020-01-16 16:00] VITALS: BP_SYST 165; BP_SYST 174; BP_DIAS 82; BP_DIAS 92
[2020-01-16 16:04] VITALS: BP 174/72
[2020-01-16] MEDS ORDERED: RT-ALBUTEROL SULF 2.5 MG/3 ML PRE-MIX VIAL INH PRN (16:15)
[2020-01-16] MEDS: ENOXAPARIN 40 MG/0.4 ML (LOVENOX) SYR SC SCH (16:29)
[2020-01-16] MEDS: FUROSEMIDE 40 MG/4 ML INJ (LASIX) IV SCH (16:29)
[2020-01-16] MEDS: RT-ALBUTEROL SULF 2.5 MG/3 ML PRE-MIX VIAL INH SCH (18:45)
[2020-01-16 19:00] VITALS: BP 132/65
[2020-01-16] MEDS: SENNA W/DOCUSATE (SENOKOT S) TABLET PO SCH (20:49)
[2020-01-16] MEDS: inSUlin ASPART (NovoLOG) 1 UNIT/0.01 ML (CHARGE PER UNIT) SC SCH (20:55)
[2020-01-17] VITALS: BP 127/61
[2020-01-17 03:39] LABS: BASOPHILS % (AUTO) 0 % (0-10); EOSINOPHILS # (AUTO) 0.1 10^3/uL (0.0-0.3); EOSINOPHILS % (AUTO) 1 % (0-10); HEMATOCRIT 35 % (35-52); HEMOGLOBIN 10.6 g/dL (11.5-16.0); LYMPHOCYTES # (AUTO) 1.1 10^3/uL (1.0-4.0); LYMPHOCYTES % (AUTO) 21 % (12-44); MEAN CORPUSCULAR HEMOGLOBIN 28 pg (25-34); MEAN CORPUSCULAR HGB CONC 30 g/dL (32-36); MEAN CORPUSCULAR VOLUME 92 fL (80-99); MEAN PLATELET VOLUME 9.6 fL (9.0-12.2); MONOCYTES # (AUTO) 0.6 10^3/uL (0.0-1.0); MONOCYTES % (AUTO) 11 % (0-12); NEUTROPHILS # (AUTO) 3.5 10^3/uL (1.8-7.8); NEUTROPHILS % (AUTO) 67 % (42-75); PLATELET COUNT 221 10^3/uL (130-400); WHITE BLOOD COUNT 5.2 10^3/uL (4.3-11.0)
[2020-01-17 03:49] LABS: ALBUMIN 3.5 GM/DL (3.2-4.5); POTASSIUM 3.7 MMOL/L (3.6-5.0)
[2020-01-17 03:50] VITALS: BP 139/71
[2020-01-17 03:51] LABS: CALCIUM 8.8 MG/DL (8.5-10.1)
[2020-01-17 03:52] LABS: TOTAL PROTEIN 6.2 GM/DL (6.4-8.2)
[2020-01-17 03:54] LABS: BILIRUBIN,TOTAL 0.6 MG/DL (0.1-1.0)
[2020-01-17 03:55] LABS: CREATININE SERUM 1.34 MG/DL (0.60-1.30)
[2020-01-17] MEDS: inSUlin ASPART (NovoLOG) 1 UNIT/0.01 ML (CHARGE PER UNIT) SC SCH ×4 (06:15→21:54)
[2020-01-17] MEDS: FUROSEMIDE 40 MG/4 ML INJ (LASIX) IV SCH ×2 (06:38→17:02)
[2020-01-17] MEDS: SENNA W/DOCUSATE (SENOKOT S) TABLET PO SCH ×2 (07:31→20:06)
[2020-01-17 08:02] VITALS: BP 126/52
[2020-01-17] MEDS: RT-ALBUTEROL SULF 2.5 MG/3 ML PRE-MIX VIAL INH SCH ×3 (08:46→16:01)
[2020-01-17 12:38] VITALS: BP 139/53
[2020-01-17] MEDS ORDERED: LORATADINE (CLARITIN) 10 MG TAB PO ONE (14:45)
--- NOTE | 2020-01-17 15:05 | Progress Note ---
Subjective Date Seen by a Provider: Jan 17, 2020 Time Seen by a Provider: 17:30 Subjective/Events-last exam Patient much improved O2 maintained on NC now and no longer on biPAP and Vapotherm No pain reported Creat stable 1.4 Pt OT tomorrow DC catheter tomorrow Appreciate Dr Locke Review of Systems General: Fatigue, Malaise Pulmonary: Dyspnea Neurological: Weakness Focused Exam Lactate Level 01/16/20 09:55: Lactic Acid Level 0.92 Objective Exam Last Set of Vital Signs Vital Signs Date Time Temp Pulse Resp B/P (MAP) Pulse Ox O2 Delivery O2 Flow Rate FiO2 01/17/20 13:00 81 01/17/20 12:38 37.0 22 139/53 (81) 90 Nasal Cannula 3.00 01/16/20 16:04 36 Capillary Refill : Less Than 3 Seconds I&O Intake and Output 01/17/20 00:00 Intake Total 150 ml Output Total 2500 ml Balance -2350 ml Intake Oral 150 ml Output Urine Total 2500 ml Daily Weight Change No No General: Alert, Oriented X3, Cooperative, No Acute Distress Lungs: Clear to Auscultation Heart: Regular Rate, Normal S1, Normal S2, No Murmurs Neuro: Normal Gait, Normal Speech, Strength at 5/5 X4 Ext, Normal Tone Psych/Mental Status: Mental Status NL, Mood NL Results Lab Laboratory Tests 01/16/20 18:28: Glucometer 148H 01/16/20 20:55: Glucometer 137H 01/17/20 03:25: White Blood Count 5.2, Red Blood Count 3.82, Hemoglobin 10.6L, Hematocrit 35, Mean Corpuscular Volume 92, Mean Corpuscular Hemoglobin 28, Mean Corpuscular Hemoglobin Concent 30L, Red Cell Distribution Width 15.7H, Platelet Count 221, Mean Platelet Volume 9.6, Immature Granulocyte % (Auto) 0, Neutrophils (%) (Auto) 67, Lymphocytes (%) (Auto) 21, Monocytes (%) (Auto) 11, Eosinophils (%) (Auto) 1, Basophils (%) (Auto) 0, Neutrophils # (Auto) 3.5, Lymphocytes # (Auto) 1.1, Monocytes # (Auto) 0.6, Eosinophils # (Auto) 0.1, Basophils # (Auto) 0.0, Immature Granulocyte # (Auto) 0.0, Sodium Level 147H, Potassium Level 3.7, Chloride Level 101, Carbon Dioxide Level 34H, Anion Gap 12, Blood Urea Nitrogen 37H, Creatinine 1.34H, Estimat Glomerular Filtration Rate 38, BUN/Creatinine Ratio 28, Glucose Level 84, Calcium Level 8.8, Corrected Calcium 9.2, Total Bilirubin 0.6, Aspartate Amino Transf (AST/SGOT) 13, Alanine Aminotransferase (ALT/SGPT) 13, Alkaline Phosphatase 43, Total Protein 6.2L, Albumin 3.5 01/17/20 09:55: B-Type Natriuretic Peptide 770.7H 01/17/20 11:11: Glucometer 109 Microbiology 01/16/20 Urine Culture - Final, Complete NO GROWTH Assessment/Plan Assessment/Plan Assess & Plan/Chief Complaint Assessment: AECHF Respiratory failure on biPAP now on NC 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 DM HTN HLP 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 h/o transient PAF last admit Elevated troponin last visit Plan: IV Lasix biPAP Pain control Dr Locke consult Lovenox DVT PPx 01/17/20: Monitor closely Wean O2 DC catheter tomorrow PT OT IRF vs HH Diagnosis/Problems Diagnosis/Problems (1) Acute on chronic heart failure Status: Acute Qualifiers: Qualified Codes: I50.9 - Heart failure, unspecified (2) Respiratory failure with hypoxia Status: Acute Qualifiers: Qualified Codes: J96.21 - Acute and chronic respiratory failure with hypoxia (3) Anemia, iron deficiency (4) Type 2 AMI (acute myocardial infarction) (5) BiPAP (biphasic positive airway pressure) dependence (6) Hypertension (7) Hyperlipidemia (8) CAD (coronary artery disease) (9) Hx of CABG Clinical Quality Measures DVT/VTE Risk/Contraindication: Risk Factor Score Per Nursin RFS Level Per Nursing on Admit: 4+=Very High KEILA MARTINEZ DO Jan 17, 2020 15:05
[2020-01-17 15:30] VITALS: BP 152/71
--- NOTE | 2020-01-17 15:45 | Consultation-Cardiology ---
HPI-Cardiology Cardiology Consultation: Date of Consultation 01/17/20 Date of Admission Attending Physician Magalys Morales MD Admitting Physician Telma Martinez DO Consulting Physician Celine LOCKE MD HPI: Time Seen by a Provider: 13:00 Chief Complaint: Shortness of breath This is a 84-year-old lady with history of CAD, CABG, history of atrial fibrillation, patient refused coronary angiography last admission in September which was for non-STEMI. Patient also refused oral anticoagulation for atrial fibrillation. She was continued on aspirin and Plavix. She presented with shortness of breath and has been admitted for acute respiratory failure, acute congestive heart failure. Improved with Lasix. She is a patient of Dr. Monk. She denied active smoking and pertinent family history is negative. Review of Systems-Cardiology Review of Systems Constitutional: As described under HPI; No As described under HPI, No no sym ptoms reported, No chills, No fever, No lightheadedness Eyes: No As described under HPI, No no symptoms reported, No blindness, No blurred vision, No contact lenses, No drainage, No decreased acuity, No foreign body sensation, No pain, No vision change Ears/Nose/Throat: No As described under HPI, No no symptoms reported, No chronic hearing loss, No ear discharge, No ear pain, No nasal drainage, No ulcerations Respiratory: No no symptoms reported; As described under HPI; No As described under HPI, No cough, No orthopnea; shortness of breath; No SOB with excertion Cardiovascular: No no symptoms reported; As described under HPI; No As described under HPI, No chest pain, No edema, No irregular heart rate, No lightheadedness, No palpitations Gastrointestinal: No no symptoms reported, No As described under HPI, No abdomen distended, No abdominal pain, No blood streaked bowels, No constipation, No diarrhea, No nausea, No vomiting, No stool coloration changes Genitourinary: No As described under HPI, No burning, No dysuria, No discharge, No frequency, No flank pain, No hematuria, No urgency : Yes : No Skin: No rash, No skin related problems, No ulcerations Psychiatric/Neurological: No anxiety, No depression, No seizure, No focal weakness, No syncope Hematologic: No bleeding abnormalities All Other Systems Reviewed Negative Unless Noted: Yes ZCB-Vtlbfv-Derpkn Hx Patient Social History Marrital Status: Employed/Student: retired Alcohol Use: Denies Use Recreational Drug Use: No Smoking Status: Never a Smoker Recent Foreign Travel: No Recent Infectious Disease Expo: No Past Medical History PMH As described under Assessment. Allergies and Home Medications Allergies Coded Allergies: Penicillins (Unverified Allergy, Mild, 12/18/08) Home Medications ALPRAZolam 0.25 Mg Tablet, 0.25 MG PO Q8H PRN for ANXIETY Prescribed by: TELMA MARTINEZ on 10/01/19935 Amlodipine Besylate 5 Mg Tablet, 5 MG PO DAILY, (Reported) Aspirin 81 Mg Tablet.dr, 81 MG PO DAILY Prescribed by: TELMA MARTINEZ on 10/01/19935 Atorvastatin Calcium 10 Mg Tablet, 10 MG PO DAILY, (Reported) Fenofibrate 54 Mg Tablet, 54 MG PO DAILY, (Reported) Furosemide 40 Mg Tablet, 40 MG PO DAILY Prescribed by: TELMA MARTINEZ on 09/30/192108 Glyburide 2.5 Mg Tablet, 2.5 MG PO DAILY, (Reported) Hydralazine HCl 25 Mg Tablet, 25 MG PO BID, (Reported) Metoprolol Succinate 100 Mg Tab.er.24h, 100 MG PO DAILY, (Reported) Patient Home Medication List Home Medication List Reviewed: Yes Physical Exam-Cardiology Physical Exam Vital Signs/I&O 01/17/20 01/17/20 01/17/20 01/17/20 03:50 07:00 08:02 08:34 Temp 36.1 Pulse 68 73 79 Resp 21 18 B/P (MAP) 139/71 (93) 126/52 (76) Pulse Ox 94 96 O2 Delivery Nasal Cannula Nasal Cannula Nasal Cannula O2 Flow Rate 3.00 3.00 3.00 01/17/20 01/17/20 01/17/20 01/17/20 08:47 11:43 12:38 13:00 Temp 37.0 Pulse 90 81 Resp 22 B/P (MAP) 139/53 (81) Pulse Ox 95 95 90 O2 Delivery Nasal Cannula Nasal Cannula Nasal Cannula O2 Flow Rate 3.00 3.00 3.00 01/17/20 00:00 Intake Total 150 ml Output Total 2500 ml Balance -2350 ml Capillary Refill : Less Than 3 Seconds Constitutional: appears stated age, AAO x 3; No apparent distress; well- developed, well-nourished HEENT: PERRL; No discharge; hearing is well preserved, oral hygience is good; No ulceration, No xanthelasmas are seen Neck: No carotid bruit; carotid pulses are 2 + bilaterally Respiratory: chest is bilaterally symmetric, lungs clear to auscultation Cardiovascular: regular rate-rhythm, S1 and S2 Gastrointestinal: soft, audible bowel sounds; No spleenomegaly Rectal: deferred Extremities: normal range of motion, non-tender, normal inspection; No clubbing, No cyanosis; no lower extremity edema bilateral; No significant edema Neurologic/Psychiatric: no motor/sensory deficits, alert, normal mood/affect, oriented x 3, power is 5/5 both on sides Skin: normal color, warm/dry; No rash, No ulcerations Data Review Labs Laboratory Tests 01/16/20 18:28: Glucometer 148H 01/16/20 20:55: Glucometer 137H 01/17/20 03:25: White Blood Count 5.2, Red Blood Count 3.82, Hemoglobin 10.6L, Hematocrit 35, M deonte Corpuscular Volume 92, Mean Corpuscular Hemoglobin 28, Mean Corpuscular Hemoglobin Concent 30L, Red Cell Distribution Width 15.7H, Platelet Count 221, Mean Platelet Volume 9.6, Immature Granulocyte % (Auto) 0, Neutrophils (%) (Auto) 67, Lymphocytes (%) (Auto) 21, Monocytes (%) (Auto) 11, Eosinophils (%) (Auto) 1, Basophils (%) (Auto) 0, Neutrophils # (Auto) 3.5, Lymphocytes # (Auto) 1.1, Monocytes # (Auto) 0.6, Eosinophils # (Auto) 0.1, Basophils # (Auto) 0.0, I mmature Granulocyte # (Auto) 0.0, Sodium Level 147H, Potassium Level 3.7, Chloride Level 101, Carbon Dioxide Level 34H, Anion Gap 12, Blood Urea Nitrogen 37H, Creatinine 1.34H, Estimat Glomerular Filtration Rate 38, BUN/Creatinine Ratio 28, Glucose Level 84, Calcium Level 8.8, Corrected Calcium 9.2, Total Bilirubin 0.6, Aspartate Amino Transf (AST/SGOT) 13, Alanine Aminotransferase (ALT/SGPT) 13, Alkaline Phosphatase 43, Total Protein 6.2L, Albumin 3.5 01/17/20 09:55: B-Type Natriuretic Peptide 770.7H 01/17/20 11:11: Glucometer 109 Microbiology 01/16/20 Urine Culture - Final, Complete NO GROWTH A/P-Cardiology Assessment/Admission Diagnosis Admitted with acute respiratory failure, improved with IV Lasix. Acute diastolic congestive heart failure - clinically compensated Echocardiogram of September 20, 2019 shows LVEF 55-65%. LA mod dilated. Mild to mod TR. PASP approx 30 mmHg. Grade 1 diastolic dysfunction. Recent Non-STEMI in September 2019, Coronary artery disease history of CABG in 2010 using COLES to LAD, vein graft to the right coronary artery and vein graft to the circumflex artery, no recent cardiac workup. Patient refused coronary angiography. Previous Paroxysmal atrial fibrillation with RVR, patient refused oral anticoagulation. She understands the risk of stroke. History of chest pain in the past, no recent episodes of chest pain Hypertension Hyperlipidemia - statin Diabetes mellitus, followed and managed by primary care physician Plan Continue IV Lasix. Change to by mouth Lasix tomorrow. Patient is significantly stable, likely discharge home in the morning to follow- up with Dr. Monk as an outpatient. She already has an appointment with Dr. Monk tomorrow at 230 p.m. Thank you for your consultation. Please call me if you have any questions. Jessica Locke MD, FACP, FACC, FSCAI, FHRS, CCDS Interventional Cardiology Cardiac Electrophysiology Vascular Medicine and Endovascular Interventions Clinical Quality Measures DVT/VTE Risk/Contraindication: Risk Factor Score Per Nursin RFS Level Per Nursing on Admit: 4+=Very High Celine LOCKE MD Jan 17, 2020 15:45
--- NOTE | 2020-01-17 16:40 | NUR ---
PATIENT TRANSFERRED TO ROOM 410. REPORT FROM REJI BONILLA. Addendum: 01/17/20 at 1708 by CHELY JENNINGS RN MEDICATIONS ADMINSTERED LATE D/T ARRIVAL TIME ON FLOOR AND TIME MEDS SCHEDULED
[2020-01-17] MEDS: ENOXAPARIN 40 MG/0.4 ML (LOVENOX) SYR SC SCH (17:02)
[2020-01-17] MEDS: FLUTICASONE NASAL SPRAY (FLONASE) 16 GM BTL NS SCH (17:07)
[2020-01-17 19:51] VITALS: BP 145/69
[2020-01-18 00:33] VITALS: BP 138/63
[2020-01-18 04:00] VITALS: BP 133/72
[2020-01-18 05:31] LABS: MEAN PLATELET VOLUME 9.1 fL (9.0-12.2); WHITE BLOOD COUNT 4.5 10^3/uL (4.3-11.0)
[2020-01-18 05:36] LABS: ALBUMIN 3.6 GM/DL (3.2-4.5)
[2020-01-18 05:37] LABS: POTASSIUM 3.5 MMOL/L (3.6-5.0)
[2020-01-18 05:38] LABS: CALCIUM 8.7 MG/DL (8.5-10.1)
[2020-01-18 05:39] LABS: TOTAL PROTEIN 6.4 GM/DL (6.4-8.2)
[2020-01-18 05:41] LABS: BILIRUBIN,TOTAL 0.6 MG/DL (0.1-1.0)
[2020-01-18 05:43] LABS: CREATININE SERUM 1.37 MG/DL (0.60-1.30)
[2020-01-18] MEDS: inSUlin ASPART (NovoLOG) 1 UNIT/0.01 ML (CHARGE PER UNIT) SC SCH (06:22)
[2020-01-18] MEDS: FUROSEMIDE 40 MG/4 ML INJ (LASIX) IV SCH (06:48)
[2020-01-18] MEDS: RT-ALBUTEROL SULF 2.5 MG/3 ML PRE-MIX VIAL INH SCH (07:24)
[2020-01-18 08:00] VITALS: BP 133/64
[2020-01-18] MEDS ORDERED: LORATADINE (CLARITIN) 10 MG TAB PO SCH (09:00)
[2020-01-18] MEDS ORDERED: LORATADINE (CLARITIN) 10 MG TAB PO NR (09:15)
[2020-01-18] MEDS ORDERED: KCL 10 MEQ TAB (MICRO K) PO NR (09:15)
[2020-01-18] MEDS: FLUTICASONE NASAL SPRAY (FLONASE) 16 GM BTL NS SCH (09:17)
[2020-01-18] MEDS: SENNA W/DOCUSATE (SENOKOT S) TABLET PO SCH (09:18)
--- NOTE | 2020-01-18 09:32 | Occupational Therapy Eval ---
OT Evaluation-General/PLF Medical Diagnosis Admission Date Jan 16, 2020 at 11:24 Medical Diagnosis: dyspnea Onset Date: Jan 16, 2020 Therapy Diagnosis Therapy Diagnosis: Decreased fx activity tolerance. Precautions Precautions/Isolations: Fall Prevention, Standard Precautions Referral Physician: Aga Damon Reason: Activity Tolerance, Self Care, Evaluation/Treatment, Strengthening/ROM Medical History Pertinent Medical History: CABG, CAD, DM, HTN, NV, OA Additional Medical History CHF, a fib, ARF, CABG, HTN, NIDDM Current History Pt admits from home with dyspnea, elevated troponin. Reviewed History: Yes Social History Home: Single Level Current Living Status: Alone Entry Into Home: Stairs With Railing Steps Into Home: 3 ADL-Prior Level of Function SCALE: Activities may be completed with or without assistive devices. 0-Uklsopojgo-juihalp completes the activity by him/herself with no assistance from a helper. 5-Set-up or Clean-up Assistance-helper sets up or cleans up; patient completes activity. [place] assists only prior to or following the activity. 4-Supervision or Touching Assistance-helper provides verbal cues and/or touching/steadying and/or contact guard assistance as patient completes ac tivity. Assistance may be provided throughout the activity or intermittently. 3-Partial/Moderate Assistance-helper does LESS THAN HALF the effort. [place] lifts, holds or supports trunk or limbs, but provides less than half the effort. 2-Substantial/Maximal Assistance-helper does MORE THAN HALF the effort. [place] lifts or holds trunk or limbs and provides more than half the effort. 7-Xphyccoru-hgtmjs does ALL the effort. Patient does none of the effort to complete the activity. Or, the assistance of 2 or more helpers is required for the patient to complete the activity. If activity was not attempted, code reason: 7-Patient Refused. 9-Not Applicable-not attempted and the patient did not perform the activity before the current illness, exacerbation or injury. 10-Not Attempted due to Environmental Limitations-(lack of equipment, weather restraints, etc.). 88-Not Attempted due to Medical Conditions or Safety Concerns. ADL PLOF Comments Pt is IND with use of walker at times. Self Care: Independent Functional Cognition: Independent DME/Equipment: Bath Chair, Grab Bars, Shower DME/Equipment Comments standard toilet, walker, sc, walk in shower with gbs OT Current Status Subjective Pt in recliner. Food in front of pt, minimal eaten. Pt agrees to eval, alert/ oriented. Pt denies pain. States breathing has been, "So much better." Mental Status/Objective Patient Orientation: Person, Place, Situation, Normal For Age Attachments: Renae Catheter, Oxygen (1;.5L) Current Glasses/Contacts: Yes Hearing Aids: No Dentures/Partials: No Hand Dominance: Right Upper Extremity ROM WFL BUE Upper Extremity Coordination WFL BUE Upper Extremity Sensation WFL BUE Upper Extremity Strength WFL BUE (4/5) ADL-Treatment Eating (QC): 6 On/Off Footwear (QC): 6 (doffs/ dons L sock. Noted slight pitting edema. Educated on velcro garment benefits.) Toileting Hygiene (QC): 6 Other Treatments Pt completes hx and environmental questioning in recliner. pt agrees to ambulate/ attempt BM in bathroom. Pt's 02 >90%. 02 cannula short, doffed at this time. Pt sit to stand to walker level with SBA, completes ambulation/ toileting with SBA, able to complete very minimal BM. Pt then sit to stand with walker/ SBA, completes toilet hygiene in stance. 02 assessed with 02 low 80's. Pt able to return to recliner, 02 donned and pt requires cues for breathing techniques, able to reach >90% within 1 minute. Pt increases to 93% within an added 30 sec. Pt left in recliner with all needs met, call light in reach, pt educated on no skilled OT needed at this time based on good strength/ balance/ ADL ability. Pt agrees. Pt would benefit from continued ambulation/ fx activity tolerance activities. Education OT Patient Education: Progress toward Goal/Update tx plan, Purpose of tx/functional activities, Transfer techniques, Other (breathing cues.) Teaching Recipient: Patient Teaching Methods: Demonstration, Discussion Response to Teaching: Verbalize Understanding, Return Demonstration OT Detention Goals Litigation Attorney Associate Goals 1=Demonstrate adherence to instructed precautions during ADL tasks. 2=Patient will verbalize/demonstrate understanding of assistive devices/modifications for ADL. 3=Patient will improve strength/tolerance for activity to enable patient to perform ADL's. OT Education/Plan Problem List/Assessment Assessment: No Skilled OT Needs ID'd Discharge Recommendations Plan/Recommendations: Continue POC Therapy Discharge Recommendati: Home & Family Treatment Plan/Plan of Care Treatment,Training & Education: Yes Patient would benefit from OT for education, treatment and training to promote i ndependence in ADL's, mobility, safety and/or upper extremity function for ADL's. Plan of Care: ADL Retraining, Functional Mobility, UE Funct Exercise/Act Treatment Duration: Jan 25, 2020 Frequency: 1 time per week (eval and d/c.) Agreement: Yes Time/GCodes Start Time: 08:05 Stop Time: 08:32 Total Time Billed (hr/min): 27 Billed Treatment Time 1, EVL, ADL (27) per DO, pt plans to come to [facility]U d/c acute. WILLIS ROGEL OTR Jan 18, 2020 09:32
--- NOTE | 2020-01-18 09:38 | Discharge Summary ---
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 h/o transient PAF last admit Elevated troponin last visit Plan: IV Lasix biPAP Pain control Dr Locke consult Lovenox DVT PPx 01/17/20: Monitor closely Wean O2 DC catheter tomorrow PT OT IRF vs HH Discharge Summary Discharge Physical Examination Allergies: Coded Allergies: Penicillins (Unverified Allergy, Mild, 12/18/08) Vitals & I&Os Vital Signs Date Time Temp Pulse Resp B/P (MAP) Pulse Ox O2 Delivery O2 Flow Rate FiO2 01/18/20 09:36 Nasal Cannula 1.50 01/18/20 08:00 36.4 87 20 133/64 (87) 91 01/16/20 16:04 36 General Appearance: Alert, Oriented X3, Cooperative Respiratory: Clear to Auscultation Cardiovascular: Regular Rate Psych/Mental Status: Mental Status NL Hospital Course Was the Problem List Reviewed?: Yes Hospital Course: Pt had an uneventful hospital course after she was admitted on Saturday morning in the ER for SOB due to CHF. I had been managing this with Lasix as an outpatient but she became overloading and required biPAP with cardiac step down monitoring closely. She required oxygen supplementation and IV Lasix and cardiology evaluation. She ultimately diuresed, lower extremity edema was much reduced along with hypoxia resolution and she was deemed stable for wee gia down O2, gaining more strength, and met criteria for CHF myopathy was admitted to inpatient rehab for close monitoring and low sodium diet was recommended. Labs (last 24 hrs) Laboratory Tests 01/16/20 09:55: White Blood Count 5.9, Red Blood Count 4.30, Hemoglobin 12.1, Hematocrit 40, Mean Corpuscular Volume 92, Mean Corpuscular Hemoglobin 28, Mean Corpuscular Hemoglobin Concent 31L, Red Cell Distribution Width 15.7H, Platelet Count 258, Mean Platelet Volume 9.9, Immature Granulocyte % (Auto) 1, Neutrophils (%) (Auto) 77H, Lymphocytes (%) (Auto) 16, Monocytes (%) (Auto) 6, Eosinophils (%) (Auto) 1, Basophils (%) (Auto) 1, Neutrophils # (Auto) 4.5, Lymphocytes # (Auto) 0.9L, Monocytes # (Auto) 0.3, Eosinophils # (Auto) 0.0, Basophils # (Auto) 0.0, Immature Granulocyte # (Auto) 0.0, Erythrocyte Sedimentation Rate 21, Prothrombin Time 15.8H, INR Comment 1.2, Activated Partial Thromboplast Time 34, D-Dimer 0.59H, Urine Color YELLOW, Urine Clarity CLEAR, Urine pH 6.0, Urine Specific [place] 1.010L, Urine Protein NEGATIVE, Urine Glucose (UA) NEGATIVE, Urine Ketones NEGATIVE, Urine Nitrite NEGATIVE, Urine Bilirubin NEGATIVE, Urine Urobilinogen 0.2, Urine Leukocyte Esterase NEGATIVE, Urine RBC (Auto) NEGATIVE, Urine RBC RARE, Urine WBC NONE, Urine Crystals NONE, Urine Bacteria NEGATIVE, Urine Casts NONE, Urine Mucus NEGATIVE, Urine Culture Indicated CULTURE PENDING, Sodium Level 144, Potassium Level 4.4, Chloride Level 103, Carbon Dioxide Level 28, Anion Gap 13, Blood Urea Nitrogen 39H, Creatinine 1.40H, Estimat Glomerular Filtration Rate 36, BUN/Creatinine Ratio 28, Glucose Level 151H, Lactic Acid Level 0.92, Calcium Level 9.3, Corrected Calcium 9.3, Total Bilirubin 0.6, Aspartate Amino Transf (AST/SGOT) 17, Alanine Aminotransferase (ALT/SGPT) 15, Alkaline Phosphatase 52, Troponin I < 0.028, C-Reactive Protein High Sensitivity 0.60H, B-Type Natriuretic Peptide 859.1H, Total Protein 7.3, Albumin 4.0, Procalcitonin 0.05 01/16/20 11:24: Lab Scanned Report Referred Lab Report 01/16/20 18:28: Glucometer 148H 01/16/20 20:55: Glucometer 137H 01/17/20 03:25: White Blood Count 5.2, Red Blood Count 3.82, Hemoglobin 10.6L, Hematocrit 35, Mean Corpuscular Volume 92, Mean Corpuscular Hemoglobin 28, Mean Corpuscular Hemoglobin Concent 30L, Red Cell Distribution Width 15.7H, Platelet Count 221, Mean Platelet Volume 9.6, Immature Granulocyte % (Auto) 0, Neutrophils (%) (Auto) 67, Lymphocytes (%) (Auto) 21, Monocytes (%) (Auto) 11, Eosinophils (%) (Auto) 1, Basophils (%) (Auto) 0, Neutrophils # (Auto) 3.5, Lymphocytes # (Auto) 1.1, Monocytes # (Auto) 0.6, Eosinophils # (Auto) 0.1, Basophils # (Auto) 0.0, Immature Granulocyte # (Auto) 0.0, Sodium Level 147H, Potassium Level 3.7, Chloride Level 101, Carbon Dioxide Level 34H, Anion Gap 12, Blood Urea Nitrogen 37H, Creatinine 1.34H, Estimat Glomerular Filtration Rate 38, BUN/Creatinine Ratio 28, Glucose Level 84, Calcium Level 8.8, Corrected Calcium 9.2, Total Bilirubin 0.6, Aspartate Amino Transf (AST/SGOT) 13, Alanine Aminotransferase (ALT/SGPT) 13, Alkaline Phosphatase 43, Total Protein 6.2L, Albumin 3.5 01/17/20 09:55: B-Type Natriuretic Peptide 770.7H 01/17/20 11:11: Glucometer 109 01/17/20 16:36: Glucometer 112H 01/17/20 20:05: Glucometer 195H 01/17/20 21:37: Glucometer 167H 01/18/20 05:21: White Blood Count 4.5, Red Blood Count 3.88, Hemoglobin 11.0L, Hematocrit 35, Mean Corpuscular Volume 91, Mean Corpuscular Hemoglobin 28, Mean Corpuscular Hemoglobin Concent 31L, Red Cell Distribution Width 15.6H, Platelet Count 201, Mean Platelet Volume 9.1, Sodium Level 144, Potassium Level 3.5L, Chloride Level 96L, Carbon Dioxide Level 36H, Anion Gap 12, Blood Urea Nitrogen 31H, Creatinine 1.37H, Estimat Glomerular Filtration Rate 37, BUN/Creatinine Ratio 23, Glucose Level 103, Calcium Level 8.7, Corrected Calcium 9.0, Total Bilirubin 0.6, Aspartate Amino Transf (AST/SGOT) 14, Alanine Aminotransferase (ALT/SGPT) 12, Alkaline Phosphatase 43, Total Protein 6.4, Albumin 3.6 01/18/20 11:05: Glucometer 174H Microbiology 01/16/20 Blood Culture - Preliminary, Resulted No growth 01/16/20 Urine Culture - Final, Complete NO GROWTH Pending Labs Microbiology Date/Time Source Procedure Growth Status 01/16/20 10:28 Peripheral Lt Hand Blood Culture - Preliminary No growth Resulted 01/16/20 09:55 Urine Straight Cath, In/Out Urine Culture - Final NO GROWTH Complete 01/16/20 09:35 Peripheral Left Forearm Blood Culture - Preliminary No growth Resulted Laboratory Tests 01/16/20 09:55: White Blood Count 5.9, Red Blood Count 4.30, Hemoglobin 12.1, Hematocrit 40, Mean Corpuscular Volume 92, Mean Corpuscular Hemoglobin 28, Mean Corpuscular Hemoglobin Concent 31, Red Cell Distribution Width 15.7, Platelet Count 258, Mean Platelet Volume 9.9, Immature Granulocyte % (Auto) 1, Neutrophils (%) (Auto) 77, Lymphocytes (%) (Auto) 16, Monocytes (%) (Auto) 6, Eosinophils (%) (Auto) 1, Basophils (%) (Auto) 1, Neutrophils # (Auto) 4.5, Lymphocytes # (Auto) 0.9, Monocytes # (Auto) 0.3, Eosinophils # (Auto) 0.0, Basophils # (Auto) 0.0, Immature Granulocyte # (Auto) 0.0, Erythrocyte Sedimentation Rate 21, Prothrombin Time 15.8, INR Comment 1.2, Activated Partial Thromboplast Time 34, D-Dimer 0.59, Urine Color YELLOW, Urine Clarity CLEAR, Urine pH 6.0, Urine Specific [place] 1.010, Urine Protein NEGATIVE, Urine Glucose (UA) NEGATIVE, Urine Ketones NEGATIVE, Urine Nitrite NEGATIVE, Urine Bilirubin NEGATIVE, Urine Urobilinogen 0.2, Urine Leukocyte Esterase NEGATIVE, Urine RBC (Auto) NEGATIVE, Urine RBC RARE, Urine WBC NONE, Urine Crystals NONE, Urine Bacteria NEGATIVE, Urine Casts NONE, Urine Mucus NEGATIVE, Urine Culture Indicated CULTURE PENDING, Sodium Level 144, Potassium Level 4.4, Chloride Level 103, Carbon Dioxide Level 28, Anion Gap 13, Blood Urea Nitrogen 39, Creatinine 1.40, Estimat Glomerular Filtration Rate 36, BUN/Creatinine Ratio 28, Glucose Level 151, Lactic Acid Level 0.92, Calcium Level 9.3, Corrected Calcium 9.3, Total Bilirubin 0.6, Aspartate Amino Transf (AST/SGOT) 17, Alanine Aminotransferase (ALT/SGPT) 15, Alkaline Phosphatase 52, Troponin I < 0.028, C-Reactive Protein High Sensitivity 0.60, B-Type Natriuretic Peptide 859.1, Total Protein 7.3, Albumin 4.0, Procalcitonin 0.05 01/16/20 11:24: Lab Scanned Report Referred Lab Report 01/16/20 18:28: Glucometer 148 01/16/20 20:55: Glucometer 137 01/17/20 03:25: White Blood Count 5.2, Red Blood Count 3.82, Hemoglobin 10.6, Hematocrit 35, Mean Corpuscular Volume 92, Mean Corpuscular Hemoglobin 28, Mean Corpuscular Hemoglobin Concent 30, Red Cell Distribution Width 15.7, Platelet Count 221, Mean Platelet Volume 9.6, Immature Granulocyte % (Auto) 0, Neutrophils (%) (Auto) 67, Lymphocytes (%) (Auto) 21, Monocytes (%) (Auto) 11, Eosinophils (%) (Auto) 1, Basophils (%) (Auto) 0, Neutrophils # (Auto) 3.5, Lymphocytes # (Auto) 1.1, Monocytes # (Auto) 0.6, Eosinophils # (Auto) 0.1, Basophils # (Auto) 0.0, Immature Granulocyte # (Auto) 0.0, Sodium Level 147, Potassium Level 3.7, Chloride Level 101, Carbon Dioxide Level 34, Anion Gap 12, Blood Urea Nitrogen 37, Creatinine 1.34, Estimat Glomerular Filtration Rate 38, BUN/Creatinine Ratio 28, Glucose Level 84, Calcium Level 8.8, Corrected Calcium 9.2, Total Bilirubin 0.6, Aspartate Amino Transf (AST/SGOT) 13, Alanine Aminotransferase (ALT/SGPT) 13, Alkaline Phosphatase 43, Total Protein 6.2, Albumin 3.5 01/17/20 09:55: B-Type Natriuretic Peptide 770.7 01/17/20 11:11: Glucometer 109 01/17/20 16:36: Glucometer 112 01/17/20 20:05: Glucometer 195 01/17/20 21:37: Glucometer 167 01/18/20 05:21: White Blood Count 4.5, Red Blood Count 3.88, Hemoglobin 11.0, Hematocrit 35, Mean Corpuscular Volume 91, Mean Corpuscular Hemoglobin 28, Mean Corpuscular Hemoglobin Concent 31, Red Cell Distribution Width 15.6, Platelet Count 201, Mean Platelet Volume 9.1, Sodium Level 144, Potassium Level 3.5, Chloride Level 96, Carbon Dioxide Level 36, Anion Gap 12, Blood Urea Nitrogen 31, Creatinine 1.37, Estimat Glomerular Filtration Rate 37, BUN/Creatinine Ratio 23, Glucose Level 103, Calcium Level 8.7, Corrected Calcium 9.0, Total Bilirubin 0.6, Aspartate Amino Transf (AST/SGOT) 14, Alanine Aminotransferase (ALT/SGPT) 12, Alkaline Phosphatase 43, Total Protein 6.4, Albumin 3.6 01/18/20 11:05: Glucometer 174 Discharge Home Medications: Active Scripts Active Xanax Tablet (Alprazolam) 0.25 Mg Tablet 0.25 Mg PO Q8H PRN Aspirin EC (Aspirin) 81 Mg Tablet.dr 81 Mg PO DAILY Furosemide 40 Mg Tablet 40 Mg PO DAILY Reported Fenofibrate 54 Mg Tablet 54 Mg PO DAILY Atorvastatin Calcium 10 Mg Tablet 10 Mg PO DAILY Amlodipine Besylate 5 Mg Tablet 5 Mg PO DAILY Metoprolol Succinate 100 Mg Tab.er.24h 100 Mg PO DAILY Glyburide 2.5 Mg Tablet 2.5 Mg PO DAILY Hydralazine HCl 25 Mg Tablet 25 Mg PO BID Instructions to patient/family Please see electronic discharge instructions given to patient. Diagnosis/Problems Diagnosis/Problems (1) Acute on chronic heart failure Status: Acute Qualifiers: Qualified Codes: I50.9 - Heart failure, unspecified (2) Respiratory failure with hypoxia Status: Acute Qualifiers: Qualified Codes: J96.21 - Acute and chronic respiratory failure with hypoxia (3) Anemia, iron deficiency (4) Type 2 AMI (acute myocardial infarction) (5) BiPAP (biphasic positive airway pressure) dependence (6) Hypertension (7) Hyperlipidemia (8) CAD (coronary artery disease) (9) Hx of CABG Clinical Quality Measures DVT/VTE Risk/Contraindication: Risk Factor Score Per Nursin RFS Level Per Nursing on Admit: 4+=Very High KEILA MARTINEZ DO Jan 18, 2020 09:38
--- NOTE | 2020-01-18 09:48 | NUR ---
Pt is Sikhism. Merchant Patroller provided prayer and Communion.
--- NOTE | 2020-01-18 10:09 | Physical Therapy Evaluation ---
PT Evaluation-General Medical Diagnosis Admission Date Jan 16, 2020 at 11:24 Medical Diagnosis: dyspnea Onset Date: Jan 16, 2020 Therapy Diagnosis Therapy Diagnosis: debility/weakness Precautions Precautions/Isolations: Fall Prevention, Standard Precautions Weight Bear Status Right Lower Extremity: Right Weight Bearing/Tolerated Left Lower Extremity: Left Weight Bearing/Tolerated Referral Physician: Aga Reason for Referral: Evaluation/Treatment Medical History Pertinent Medical History: CABG, CAD, DM, HTN, [place], OA Current History EMS secondary to SOA x 2 days Reviewed History: Yes Social History Home: Single Level Current Living Status: Alone Entry Into Home: Stairs With Railing PT Steps Into Home: 3 Prior Prior Level of Function SCALE: Activities may be completed with or without assistive devices. 0-Ogfhssyiww-fuishjj completes the activity by him/herself with no assistance from a helper. 5-Set-up or Clean-up Assistance-helper sets up or cleans up; patient completes activity. Mora assists only prior to or following the activity. 4-Supervision or Touching Assistance-helper provides verbal cues and/or touching/steadying and/or contact guard assistance as patient completes activity. Assistance may be provided throughout the activity or intermittently. 3-Partial/Moderate Assistance-helper does LESS THAN HALF the effort. Mora lifts, holds or supports trunk or limbs, but provides less than half the effort. 2-Substantial/Maximal Assistance-helper does MORE THAN HALF the effort. Mora lifts or holds trunk or limbs and provides more than half the effort. 8-Iglxjwvcq-pjhwvb does ALL the effort. Patient does none of the effort to complete the activity. Or, the assistance of 2 or more helpers is required for the patient to complete the activity. If activity was not attempted, code reason: 7-Patient Refused. 9-Not Applicable-not attempted and the patient did not perform the activity before the current illness, exacerbation or injury. 10-Not Attempted due to Environmental Limitations-(lack of equipment, weather restraints, etc.). 88-Not Attempted due to Medical Conditions or Safety Concerns. Bed Mobility: 6 Transfers (B,C,W/C): 6 Gait: 6 Stairs: 6 Indoor Mobility (Ambulation): Independent Stairs: Independent Prior Devices Use: Walker PT Evaluation-Current Subjective Patient agrees to PT. No c/o. Pain Numeric Pain Scale: 0-No Pain Location: No Pain Reported Objective Patient Orientation: Normal For Age Attachments: Oxygen (2L NC), Renae Catheter ROM/Strength ROM Lower Extremities bilateral LE WFL Strength Lower Extremities 3+/5 grossly bilateral LE Integumentary/Posture Integumentary refer to nursing notes Bladder Incontinence: Renae Cath Posture trunk flexed posture Neuromuscular (Tone, Coordination, Reflexes) grossly intact Sensory Vision: Functional Hearing: Functional Hand Dominance: Right Transfers Lying to Sitting/Side of Bed(Q: 5 Sit to Stand (QC): 5 Chair/[id number]-Qkkcb Xfer(QC): 5 Gait Does the Patient Walk?: Yes Mode of Locomotion: Walk Anticipated Mode of Locomotion: Walk Walk 10 feet (QC): 5 Walk 50 ft with 2 Turns(QC): 5 Walk 150 ft (QC): 5 Distance: 250' Gait Assistive Device: FWW Comments/Gait Description steady, functional gait sequence Wheelchair Training Does the Pt Use a Wheelchair?: No Balance Sitting Static: Normal Sitting Dynamic: Normal Standing Static: Normal Standing Dynamic: Normal Assessment/Needs 84 y.o. female will be seen short term by skilled PT to address functional mobility and strength to ensure safe return to home at [facility]. Rehab Potential: Fair PT Gear Hobber Set Up Operator Goals Gear Hobber Set Up Operator Goals PT Gear Hobber Set Up Operator Goals Time Frame: Jan 23, 2020 Roll Left & Right (QC): 6 Sit to Lying (QC): 6 Lying-Sitting on Side/Bed(QC): 6 Sit to Stand (QC): 6 Chair/Oya-st-Qagvg Xfer(QC): 6 Toilet Transfer (QC): 6 Car Transfer (QC): 6 Does the Patient Walk: Yes Walk 10 feet (QC): 6 Walk 50ft with 2 Turns (QC): 6 Walk 150 ft (QC): 6 Walking 10ft on Uneven Surface: 6 1 Step (curb) (QC): 6 4 Steps (QC): 6 12 Steps (QC): 9 Picking up an Object (QC): 6 Does the Pt use WC or Scooter?: No PT Plan Problem List Problem List: Activity Tolerance Treatment/Plan Treatment Plan: Continue Plan of Care Treatment Plan: Bed Mobility, Education, Functional Activity Chip, Functional Strength, Gait, Safety, Therapeutic Exercise, Transfers Treatment Duration: Jan 23, 2020 Frequency: 6 times per week Estimated Hrs Per Day: .25 hour per day Patient and/or Family Agrees t: Yes Time/GCodes Time In: 901 Time Out: 918 Total Billed Treatment Time: 17 Total Billed Treatment 1 visit EVModC 17 min SHIRA MCKAY PT Jan 18, 2020 10:09
--- NOTE | 2020-01-18 10:25 | NUR ---
THIS RN PHONED REJI SARMIENTO AT THIS TIME AND GAVE REPORT AND INFORMED SARAH FROM PHYSICAL THERAPY WAS TAKING PATIENT AT 1030. THIS RN BAGGED BELONGINGS TO SEND TO ARU. REJI SARMIENTO INFORMED WOULD JUST CHECK ACCU CHECK DOWN THERE. THIS RN INFORMED THERE OF O2 QUALIFICATION ORDER AND THAT IT WOULD NEED TO BE ADDED THERE FOR DISCHARGE FROM ARU.
[2020-01-19] MEDS ORDERED: LORATADINE (CLARITIN) 10 MG TAB PO SCH (09:00)
== END 2020-01-18 10:40 | DRG 280 ==
LOC: EDUNIT# 09:26 → ER 09:26 → CSD 11:24 → 4TH 01-17 16:55
PROVIDERS: ADMIT Family Medicine; ATTEND Family Medicine
DX: I13.0 Hypertensive heart and chronic kidney disease with heart failure and stage 1 through stage 4 chronic kidney disease, or unspecified chronic kidney disease (principal); I50.33 Acute on chronic diastolic (congestive) heart failure; I21.A1 Myocardial infarction type 2; J96.91 Respiratory failure, unspecified with hypoxia; N18.9 Chronic kidney disease, unspecified; I42.9 Cardiomyopathy, unspecified; G72.89 Other specified myopathies; I48.0 Paroxysmal atrial fibrillation; I25.10 Atherosclerotic heart disease of native coronary artery without angina pectoris; E78.00 Pure hypercholesterolemia, unspecified; E78.5 Hyperlipidemia, unspecified; M17.0 Bilateral primary osteoarthritis of knee; E11.9 Type 2 diabetes mellitus without complications; D50.9 Iron deficiency anemia, unspecified; Z99.81 Dependence on supplemental oxygen; J45.909 Unspecified asthma, uncomplicated; Z95.1 Presence of aortocoronary bypass graft; Z90.710 Acquired absence of both cervix and uterus; Z85.42 Personal history of malignant neoplasm of other parts of uterus; Z79.84 Long term (current) use of oral hypoglycemic drugs
CPT/HCPCS: 36415; 51702; 71045; 80053; 81000; 82962; 83605; 83880; 84145; 84484; 85025; 85027; 85379; 85610; 85652; 85730; 86141; 87040; 87088; 93005; 93306; 94640; 94660; 94760

== ENCOUNTER 2020-01-18 09:50 | Inpatient (IN) | payer MEDICARE ==
[~2020-01-18] VITALS: Ht 160 cm; Wt 85.4 kg
[2020-01-18] MEDS ORDERED: CALCIUM CARBONATE 500 MG (TUMS) TAB.CHEW PO PRN (10:15)
[2020-01-18] MEDS ORDERED: DOCUSATE SODIUM 100 MG (COLACE) CAP PO PRN (10:15)
[2020-01-18] MEDS ORDERED: guaiFENesin/CODEINE (ROBITUSSIN AC) 10ML UDC PO PRN (10:15)
[2020-01-18] MEDS ORDERED: ALPRAZolam 0.25 MG (XANAX) TAB PO PRN (10:15)
[2020-01-18] MEDS ORDERED: LACTULOSE SYRUP 10GM/15ML (ENULOSE) 30ML UDC PO PRN (10:15)
[2020-01-18] MEDS ORDERED: MELATONIN 3 MG TABLET PO PRN (10:15)
[2020-01-18] MEDS ORDERED: ACETAMINOPHEN 500 MG TAB (TYLENOL) PO PRN (10:15)
[2020-01-18] MEDS ORDERED: FLEET ENEMA ADULT 1 EA BTL PR PRN (10:15)
[2020-01-18] MEDS ORDERED: ONDANSETRON 4 MG (ZOFRAN) ORAL DISSOLVE TAB PO PRN (10:15)
[2020-01-18] MEDS ORDERED: BISACODYL 10 MG SUPP (DULCOLAX) PR PRN (10:15)
[2020-01-18] MEDS ORDERED: diphenhydrAMINE 25 MG TAB (BENADRYL) PO PRN (10:15)
[2020-01-18] MEDS ORDERED: LOPERAMIDE 2 MG (IMODIUM) TABLET PO PRN (10:15)
--- NOTE | 2020-01-18 10:40 | NUR ---
Bev Rodriguez admitted to room 227-1, with an admitting diagnosis of CHF Debility, on 01/18/[address] [place] [address] via wheelchair, accompanied by staff.BEV RODRIGUEZ introduced to surroundings, call light, bed controls, phone, TV, temperature control, lights, meal times, smoking policy, visitor policy, side rail policy, bathrooms and showers. Patient Rights given to patient in the handbook.BEV RODRIGUEZ verbalizes understanding that [facility] is not responsible for the loss or damage to any personal effects or valuables that are kept in the patients possession during their hospitalization. The following Patient Care Plans were discussed with the patient: Discharge Planning, CHF, Fall Prevention. BEV RODRIGUEZ verbalizes understanding of Interdisciplinary Patient Education. Patient and/or family were informed about the Rapid Response Team and its purpose. Patient received Patient Rights Booklet, which includes Privacy Act Statement and Data Collection Information Summary.
[2020-01-18] MEDS ORDERED: ACETAMINOPHEN 325 MG TABLET PO PRN (11:15)
[2020-01-18 11:18] VITALS: BP 109/71
--- NOTE | 2020-01-18 11:18 | PM&R Post Admission Assessment ---
PM&R Date of Visit: Jan 18, 2020 Time of Visit: 11:00 History of Present Illness CC: CHF Myopathy HPI: This is an 84[facility]WF clinic pt of [facility] who has a PMH of CHF with AF last ho tal stay who has had some issues with acute renal failure with Lasix use as an outpatient because of volume overload that admitted to eating too much cured meats that has a high sodium content who presented with CHF and respiratory insufficiency requiring biPAP and close monitoring. She did well, resolved respiratory distress with biPAP and IV Lasix and currently very weak, needing to wean off O2 and will need to have close monitoring until she is strong enough to go home later this week. Hospital Course from med-surg: Pt had an uneventful hospital course after she was admitted on Saturday morning in the ER for SOB due to CHF. I had been managing this with Lasix as an outpatient but she became overloading and required biPAP with cardiac step down monitoring closely. She required oxygen supplementation and IV Lasix and cardiology evaluation. She ultimately diuresed, lower extremity edema was much reduced along with hypoxia resolution and she was deemed stable for weaning down O2, gaining more strength, and met criteria for CHF myopathy was admitted to inpatient rehab for close monitoring and low sodium diet was recommended. H&P from CL[facility] Townsend[facility]: CC: Acute exacerbation of congestive heart failure HPI: Patient is an 84 y.o. female who was admitted to the hospital thru the ED on 01/15 for severe dyspnea. She was found to have acute exacerbation of congestive heart failure and was admitted for observation and treatment. She was started on IV Lasix for fluid overload and O2 via nasal cannula. She noted improvement in her breathing today, but still did not feel fully recovered. She noted having to sleep in the recliner overnight, but states she has done this at home as well. She is followed by Dr. Monk for her cardiology concerns as an outpatient. PMH: CAD, Atrial fibrillation, Hypertension, Hyperlipidemia, CHF, Cardiomyopathy, iron deficiency anemia, asthma, BiPap dependence, non-insulin dependent type 2 Diabetes mellitus, GI Bleed, hemorrhoids, Ovarian Cancer, arthritis. PSH: CABG, hysterectomy Allergies: Pencillins Home Meds: Albuterol inhaler, alprazolam 0.25 mg q8h prn, amlodipine 5 mg daily, aspirin 81 mg daily, atorvastatin 10 mg daily, fenofibrate 54 mg daily, Lasix 40 mg daily, glyburide 2.5 mg daily, Hydralazine 25 mg BID, Metoprolol succinate 100 mg daily SH: , retired. Does not use alcohol or recreational drugs, never smoked. No recent travel or hospitalizations FH: no pertinent family history ROS: See HPI. Negative for chest pain, worsening shortness of breath, bowel incontinence, bladder dysfunction, nausea, vomiting, diarrhea. PE: Constitutional: WN/WD female, no acute distress. Sitting comfortably in chair HEENT: nontender, normocephalic. Neck: Nontender, no lymphadenopathy Cardiac: RRR, no murmurs. Radial pulses +2/4 bilaterally Respiratory: No respiratory distress. CTAB. On 2.5 L O2 via nasal cannula. Abdomen: Nontender. No masses Extremities: nontender, normal inspection Neuro/Psych: A&Ox3. Normal mood/affect. Skin: warm/dry. No discoloration Assessment: 1. acute on chronic CHF 2. Acute Respiratory Failure, improved 3. Atrial fibrillation 4. BiPap Dependence 5. non-insulin dependent type 2 Diabetes Mellitus 6. Coronary Artery Disease 7. Cardiomyopathy 8. Hx of CABG 9. Hx of GI Bleed 10. iron deficiency anemia 11. Hypertension 12. Hx of Asthma 13. hyperlipidemia Plan: - Evaluate for need of home O2 - Improve cardiac endurance - PT/OT eval for goal setting - Improve exercise tolerance - Encourage ambulation participation in therapy activities Past Kxixvcc-Tkzfux-Dsvtxh Hx Past Med/Social Hx: Reviewed Nursing Past Med/Soc Hx, Reviewed and Corrections made Patient Social History Marrital Status: Employed/Student: retired Alcohol Use: Denies Use Smoking Status: Never a Smoker Recent Hopitalizations: No Seasonal Allergies Seasonal Allergies: No Past Medical History Surgeries: CABG, Hysterectomy Cardiac: Atrial Fibrillation, Cardiomyopathy, Chronic Edema/Swelling, Coronary Artery Disease, High Cholesterol, Hypertension Reproductive: No Genitourinary: Renal Failure Gastrointestinal: Gastrointestinal Bleed, Hemorrhoids Musculoskeletal: Arthritis Endocrine: Diabetes, Non-Insulin dep Cancer: Ovarian History of Blood Disorders: No Family History No Pertinent Family Hx PM&R Allergy/Meds/Data Review Allergies Coded Allergies: Penicillins (Unverified Allergy, Mild, 12/18/08) Home Medications Scheduled Amlodipine Besylate (Amlodipine Besylate), 5 MG PO DAILY, (Reported) Aspirin (Aspirin EC), 81 MG PO DAILY Atorvastatin Calcium (Atorvastatin Calcium), 10 MG PO DAILY, (Reported) Fenofibrate (Fenofibrate), 54 MG PO DAILY, (Reported) Furosemide (Furosemide), 40 MG PO DAILY Glyburide (Glyburide), 2.5 MG PO DAILY, (Reported) Hydralazine HCl (Hydralazine HCl), 25 MG PO BID, (Reported) Metoprolol Succinate (Metoprolol Succinate), 100 MG PO DAILY, (Reported) Scheduled PRN ALPRAZolam (Xanax Tablet), 0.25 MG PO Q8H PRN for ANXIETY Discontinued Medications Lisinopril/Hydrochlorothiazide (Lisinopril-Hctz 20-25 mg Tab), 1 EA PO DAILY, (Reported) Discontinued Reason: No Longer Taking Pantoprazole Sodium (Pantoprazole Sodium), 40 MG PO BID Discontinued Reason: No Longer Taking Current Medications Current Medications Reviewed Review of Systems Constitutional: see HPI, malaise, weakness Respiratory: dyspnea on exertion, short of breath, wheezing Gastrointestinal: constipation All Other Systems Reviewed Negative Unless Noted: Yes Physical Exam Physical Exam Vital Signs Capillary Refill : Height, Weight, BMI Height: '" Weight: lbs. oz. kg; 31.64 BMI Method: General Appearance: No Apparent Distress, WD/WN, Chronically ill Eyes: Bilateral Eye Normal Inspection, Bilateral Eye PERRL HEENT: PERRL/EOMI, Normal ENT Inspection, Pharynx Normal Neck: Full Range of Motion, Normal Inspection, Non Tender, Supple, Carotid Bruit Respiratory: Chest Non Tender, Lungs Clear, No Accessory Muscle Use, No Respiratory Distress, Decreased Breath Sounds Cardiovascular: Regular Rate, Rhythm, No Gallop, No JVD, No Murmur, Normal Peripheral Pulses Gastrointestinal: Normal Bowel Sounds, No Organomegaly, No Pulsatile Mass, Non Tender, Soft Back: Normal Inspection, No CVA Tenderness, No Vertebral Tenderness Extremity: Normal Capillary Refill, Normal Inspection, Normal Range of Motion, Non Tender, No Calf Tenderness, Pedal Edema Neurologic/Psychiatric: Alert, Oriented x3, No Motor/Sensory Deficits, Normal Mood/Affect, 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 Norm as Tested, Motor Weakness (generalized lower extremities during ambulation) Skin: Normal Color, Warm/Dry Lymphatic: No Adenopathy PM&R Medical Assessment & Plan REHAB/MEDICAL ASSESSMENT AND PLAN: REHAB IMPAIRMENT GROUP: CHF myopathy ETIOLOGIC DIAGNOSIS: CHF myopathy The comorbidities that impact the patients function and/or functional outcome by: severe and recurrent CHF, renal insufficiency, O2 dependent currently REHAB PLAN: The patient is being admitted to our comprehensive inpatient rehabilitation facility and can tolerate the intensity of service consisting of at least: 180 minutes of therapy a day, 5 out of 7 days a week Rehab treatment will consist of: PT OT will focus on regaining ambulation skills with fall prevention and regaining ADL's in order to return home to live independently The patient/family has a good understanding of our discharge process and will benefit from an interdisciplinary inpatient rehabilitation program. The patient has potential to make improvement and is in need of at least two of the following multidisciplinary therapies including but not limited to physical, occupational, speech, and prosthetics and orthotics. Additionally the patient will need services from respiratory, nutritional services, wound care, psychology, etc. (Customize this to each patient). Given the patients complex condition and risk of further medical complications, rehabilitation services cannot be safely or effectively provided at a lower level of care such as a snf facility. BARRIERS TO DISCHARGE: Lives alone and worsened CHF status ESTIMATED LOS: 6 days DISPOSITION: Home RELEVANT CHANGES SINCE PREADMISSION SCREENING: I have compared the patients medical and functional status at the time of the preadmission screening and there are: no changes PROGNOSIS: Fair REHABILITATION GOALS: 1. PT OT will focus on regaining ambulation skills with fall prevention and regaining ADL's in order to return home to live independently All the above goals were reviewed with the patient and he/she is in agreement. By signing this document, I acknowledge that I have personally performed a full physical examination on this patient within 24 hours of admission to this inpatient rehabilitation facility and have determined the patient to be able to tolerate the above course of treatment at an intensive level for a reasonable period of time. I will be completing a detailed individualized Plan of Care for this patient by day #4 of the patients stay based upon the Preadmission Screen, the Post-Admission Evaluation, and the therapy evaluations. Admission Dx/Comorbidities: (1) Acute on chronic heart failure Status: Acute ICD Codes: I50.9 - Heart failure, unspecified (2) BiPAP (biphasic positive airway pressure) dependence ICD Codes: Z99.89 - Dependence on other enabling machines and devices (3) Hypertension ICD Codes: I10 - Essential (primary) hypertension (4) Hyperlipidemia ICD Codes: E78.5 - Hyperlipidemia, unspecified (5) CAD (coronary artery disease) ICD Codes: I25.10 - Atherosclerotic heart disease of [place] coronary artery without angina pectoris (6) Atrial fibrillation with rapid ventricular response ICD Codes: I48.91 - Unspecified atrial fibrillation (7) Respiratory distress ICD Codes: R06.03 - Acute respiratory distress (8) Diabetes ICD Codes: E11.9 - Type 2 diabetes mellitus without complications (9) Hx of CABG ICD Codes: Z95.1 - Presence of aortocoronary bypass graft Assessment/Plan Assessment and Plan Assess & Plan/Chief Complaint Assessment: CHF myopathy CRI DM HTN CAD CABG hx HLP Hypoxia h/o PAF w/RVR last admit Anemia Hematochezia hx Plan: Monitor labs Lasix IRF protocol O2 wean KEILA MARTINEZ DO Jan 18, 2020 11:18
[2020-01-18] MEDS ORDERED: RT-ALBUTEROL SULF 2.5 MG/3 ML PRE-MIX VIAL INH PRN (11:30)
--- NOTE | 2020-01-18 11:44 | Progress Note ---
RICHARDSARIAHMARTHACHELY MED STUDENT 01/18/20 1144: Progress Note CC: Acute exacerbation of congestive heart failure HPI: Patient is an 84 y.o. female who was admitted to the hospital thru the ED on 01/15 for severe dyspnea. She was found to have acute exacerbation of congestive heart failure and was admitted for observation and treatment. She was started on IV Lasix for fluid overload and O2 via nasal cannula. She noted improvement in her breathing today, but still did not feel fully recovered. She noted having to sleep in the recliner overnight, but states she has done this at home as well. She is followed by Dr. Monk for her cardiology concerns as an outpatient. PMH: CAD, Atrial fibrillation, Hypertension, Hyperlipidemia, CHF, Cardiomyopathy, iron deficiency anemia, asthma, BiPap dependence, non-insulin dependent type 2 Diabetes mellitus, GI Bleed, hemorrhoids, Ovarian Cancer, arthritis. PSH: CABG, hysterectomy Allergies: Pencillins Home Meds: Albuterol inhaler, alprazolam 0.25 mg q8h prn, amlodipine 5 mg daily, aspirin 81 mg daily, atorvastatin 10 mg daily, fenofibrate 54 mg daily, Lasix 40 mg daily, glyburide 2.5 mg daily, Hydralazine 25 mg BID, Metoprolol succinate 100 mg daily SH: , retired. Does not use alcohol or recreational drugs, never smoked. No recent travel or hospitalizations FH: no pertinent family history ROS: See HPI. Negative for chest pain, worsening shortness of breath, bowel incontinence, bladder dysfunction, nausea, vomiting, diarrhea. PE: Constitutional: WN/WD female, no acute distress. Sitting comfortably in chair HEENT: nontender, normocephalic. Neck: Nontender, no lymphadenopathy Cardiac: RRR, no murmurs. Radial pulses +2/4 bilaterally Respiratory: No respiratory distress. CTAB. On 2.5 L O2 via nasal cannula. Abdomen: Nontender. No masses Extremities: nontender, normal inspection Neuro/Psych: A&Ox3. Normal mood/affect. Skin: warm/dry. No discoloration Assessment: 1. acute on chronic CHF 2. Acute Respiratory Failure, improved 3. Atrial fibrillation 4. BiPap Dependence 5. non-insulin dependent type 2 Diabetes Mellitus 6. Coronary Artery Disease 7. Cardiomyopathy 8. Hx of CABG 9. Hx of GI Bleed 10. iron deficiency anemia 11. Hypertension 12. Hx of Asthma 13. hyperlipidemia Plan: - Evaluate for need of home O2 - Improve cardiac endurance - PT/OT eval for goal setting - Improve exercise tolerance - Encourage ambulation participation in therapy activities TELMA YUNG DO 01/19/20 0529: Supervisory-Addendum Brief Verification & Attestation Participated in pt care: history, MDM, physical Personally performed: exam, history, MDM, supervision of care Care discussed with: Medical Student Procedures: n/a Results interpretation: Verified all documentation Verification and Attestation of Medical Student E/M Service A medical student performed and documented this service in my presence. I reviewed and verified all information documented by the medical student and made modifications to such information, when appropriate. I personally performed the physical exam and medical decision making. Telma Yung, Jan 19, 2020,05:29 CHELY KELLER MED STUDENT Jan 18, 2020 11:44 TELMA YUNG DO Jan 19, 2020 05:29
--- NOTE | 2020-01-18 12:19 | Physical Therapy Evaluation ---
PT Evaluation-General Medical Diagnosis Admission Date Jan 18, 2020 at 10:48 Medical Diagnosis: CHF Onset Date: Jan 16, 2020 Therapy Diagnosis Therapy Diagnosis: Debility Precautions Precautions/Isolations: Standard Precautions Weight Bear Status Right Lower Extremity: Right Full Weight Bearing Left Lower Extremity: Left Full Weight Bearing Referral Physician: Aga Reason for Referral: Evaluation/Treatment Medical History Pertinent Medical History: CABG, CAD, DM, HTN, [place], OA Additional Medical History Past Medical History Surgeries: CABG, Hysterectomy Cardiac: Atrial Fibrillation, Cardiomyopathy, Coronary Artery Disease, High Cholesterol, Hypertension Reproductive: No Gastrointestinal: Gastrointestinal Bleed, Hemorrhoids Musculoskeletal: Arthritis Endocrine: Diabetes, Non-Insulin dep Cancer: Ovarian History of Blood Disorders: No Reviewed History: Yes Social History Home: Single Level Current Living Status: Alone Entry Into Home: Stairs With Railing PT Steps Into Home: 3 Prior Prior Level of Function SCALE: Activities may be completed with or without assistive devices. 0-Ynsgowlhnf-fwrwhsn completes the activity by him/herself with no assistance from a helper. 5-Set-up or Clean-up Assistance-helper sets up or cleans up; patient completes activity. [place] assists only prior to or following the activity. 4-Supervision or Touching Assistance-helper provides verbal cues and/or touching/steadying and/or contact guard assistance as patient completes activity. Assistance may be provided throughout the activity or intermittently. 3-Partial/Moderate Assistance-helper does LESS THAN HALF the effort. Lag[place] lifts, holds or supports trunk or limbs, but provides less than half the effort. 2-Substantial/Maximal Assistance-helper does MORE THAN HALF the effort. Lagrange lifts or holds trunk or limbs and provides more than half the effort. 4-Xedkivxer-pwctdg does ALL the effort. Patient does none of the effort to complete the activity. Or, the assistance of 2 or more helpers is required for the patient to complete the activity. If activity was not attempted, code reason: 7-Patient Refused. 9-Not Applicable-not attempted and the patient did not perform the activity before the current illness, exacerbation or injury. 10-Not Attempted due to Environmental Limitations-(lack of equipment, weather restraints, etc.). 88-Not Attempted due to Medical Conditions or Safety Concerns. Bed Mobility: 6 Transfers (B,C,W/C): 6 Gait: 6 Stairs: 6 Wheelchair Mobility: 9 Indoor Mobility (Ambulation): Independent Stairs: Independent Prior Devices Use: Walker Prior Device Use: Pt used walker on occasion but not consistently within home; mostly @night PT Evaluation-Current Subjective Pt agrees to PT. Pt reports no pain. Pt/Family Goals Return Home Objective Patient Orientation: Person, Place, Time, Eyes Open, Situation Attachments: Oxygen ROM/Strength ROM Lower Extremities WFL Strength Lower Extremities R hip flex: 3+/5 L hip flex: 3+/5 R knee ext: 5/5 L knee ext 4+/5 R knee flex: 4/5 L knee flex: 4/5 Sensory Vision: Wears Glasses Hearing: Functional Sensation Right Lower Extremit: Intact Sensation Left Lower Extremity: Intact Sensation Lower Extremities BLE sensation intact to light touch L2-S2 Transfers Roll Left & Right (QC): 4 Sit to Lying (QC): 4 Lying to Sitting/Side of Bed(Q: 4 Sit to Stand (QC): 4 Chair/Ocl-jo-Hasij Xfer(QC): 4 Toilet Transfer (QC): 4 Car Transfer (QC): 4 Gait Does the Patient Walk?: Yes Mode of Locomotion: Walk Anticipated Mode of Locomotion: Walk Walk 10 feet (QC): 4 Walk 50 ft with 2 Turns(QC): 4 Walk 150 ft (QC): 4 Walking 10ft/uneven surface-QC: 4 Distance: 400' Gait Assistive Device: FWW Comments/Gait Description slow but steady ambulation Wheelchair Training Does the Pt Use a Wheelchair?: No Wheel 50 ft with 2 turns (QC): 9 Wheel 150 ft (QC): 9 Stairs #of Steps: 1 1 Step (curb) (QC): 3 4 Steps (QC): 88 12 Steps (QC): 88 Pt made it up first step of stair case using handrails; pt struggled to get leg up to step, due to this difficulty only one step was attempted. Balance Sitting Static: Normal Sitting Dynamic: Normal Standing Static: Good Standing Dynamic: Good Picking up an Object (QC): 4 Treatment Mini Squats at parallel bar 2x10 Assessment/Needs Pt is able to complete most tasks with CGA or SBA due to limited strength and endurance. Pt requires cues on how to roll by using LE strength rather than relying on momentum. Pt worked on weightbearing LE exercises (mini-squats) and needed seated rest breaks between sets. Rehab Potential: Fair PT Short Term Goals Short Term Goals Time Frame: Jan 25, 2020 Roll Left & Right: 5 Sit to lyin Lying to sitting on side of be: 5 Sit to stand: 5 Chair/xck-at-rtros transfer: 5 Walk 10 feet: 5 Walk 50 feet with two turns: 5 Walk 150 feet: 5 PT [facility]ci Goals Glaze Supervisor Goals PT Glaze Supervisor Goals Time Frame: Feb 08, 2020 Roll Left & Right (QC): 6 Sit to Lying (QC): 6 Lying-Sitting on Side/Bed(QC): 6 Sit to Stand (QC): 6 Chair/Hbu-kf-Wylbv Xfer(QC): 6 Toilet Transfer (QC): 6 Car Transfer (QC): 6 Does the Patient Walk: Yes Walk 10 feet (QC): 6 Walk 50ft with 2 Turns (QC): 6 Walk 150 ft (QC): 6 Walking 10ft on Uneven Surface: 6 1 Step (curb) (QC): 5 4 Steps (QC): 5 12 Steps (QC): 5 Picking up an Object (QC): 5 Does the Pt use WC or Scooter?: No Wheel 50 feet with 2 turns (QC: 9 Wheel 150 feet: 9 PT Plan Problem List Problem List: Activity Tolerance, Functional Strength, Safety, Balance, Gait, Transfer, Bed Mobility, ROM Treatment/Plan Treatment Plan: Continue Plan of Care Treatment Plan: Bed Mobility, Education, Functional Activity Chip, Functional Strength, Group Therapy, Gait, Safety, Therapeutic Exercise, Transfers Treatment Duration: Feb 01, 2020 Frequency: At least 5 of 7 days/Wk (IRF) Estimated Hrs Per Day: 1.5 hours per day Patient and/or Family Agrees t: Yes Safety Risks/Education Patient Education: Gait Training, Transfer Techniques, Steps, Correct Positioning, Safety Issues Teaching Recipient: Patient, Family Teaching Methods: Demonstration, Discussion Response to Teaching: Reinforcement Needed Discharge Recommendations Plan Pt will work on bed mobility, balance and gait training, transfers, and th erapeutic exercises. Therapy Discharge Recommendati: Home & Family Time/GCodes Time In: 1030 Time Out: 1115 Total Billed Treatment Time: 45 Total Billed Treatment 1 visit EVM 10' FA 35' ISABEL TAMAYO PT Jan 18, 2020 12:19
--- NOTE | 2020-01-18 14:32 | ST Cognitive Linguistic Eval ---
Speech Evaluation-General Medical Diagnosis CHF Onset Date: Jan 16, 2020 Therapy Diagnosis Therapy Diagnosis: Cognitive-communication Referral Referring Physician: Dr. Yung Medical History Pertinent Medical History: CABG, CAD, DM, HTN, [place], OA Reviewed History: Yes Social History Current Living Status: Alone Speech PLF-Current Status Prior Level of Function Patient lives home alone where she is independent for much of her daily needs. Subjective Patient was pleasant and cooperative with the cognitive assessment. Language Eval: Auditory Comprehends Simple Yes/No Ques: Functional Indent/Objects Multiple [place]: Functional Ident/Pics in Multiple [place]: Functional Follows 1-Step Commands: Functional Follows Complex Directions: Functional Follows General Conversations: Functional Language Eval: Verbal Language Completes Spontaneous Greeting: Functional Produces Auto, Serial Info: Functional Imitates Simple Words/Phrases: Functional Word Finding: Functional Requests Basic Needs: Functional States Basic Personal Info: Functional Expresses Complex Ideas: Functional Objective Cognitive Domain Attention: WNL Memory: WNL Problem Solving: Functional Executive Functions: WNL Visuospatial Skills: WNL Composite Severity Rating: WNL Clock Drawing Severity Rating: WNL Objective Formal/Standardized Tests [facility] Mental Status ([facility]) Results 28/30, Within Normal range of function Oral Motor/Speech Production Within Normal Limits Impression Patient is a pleasant 84 y/o female who was admitted to the ARU due to CHF exacerbation. The patient was given the UMS at bedside with a score of 28/30 obtained. The patient does not require further ST services at this time. Speech Patient Assess Expression of Ideas/Wants: Expression (4) Understanding Verbal Content: Understands (4) Brief Interview-Mental Status: Yes Repetition of Three Words: Three (3) Temporal Orientation: Year: Correct (3) Temporal Orientation: Month: Accurate within 5 days(2) Temporal Orientation: Day: Correct (1) Recall : Wear to say "Sock": Yes, no cue required (2) Recall : Color: Yes, no cue required (2) Recall : Bed: Yes, no cue required (2) Memory/Recall Ability: Current season, That he or she is in a hsp/hsp unit Speech-Plan Patient/Family Goals Patient/Family Goals: Patient plans on returning to her home upon discharge. Treatment Plan Speech Therapy Treatment Plan: Discontinue ST Treatment Duration: Jan 18, 2020 Frequency: 1 time per week Estimated Hrs Per Day: .25 hour per day Rehab Potential: Fair Barriers to Learning: None identified Pt/Family Agrees to Plan: Yes Safety Risks/Education Teaching Recipient: Patient Teaching Methods: Discussion Response to Teaching: Verbalize Understanding Education Topics Provided: Safety within her room and communication of wants/needs Time Speech Therapy Time In: 14:15 Speech Therapy Time Out: 14:30 Total Billed Time: 15 Billed Treatment Time 1, JONATHANNDCOMP CHEN Gomez Jan 18, 2020 14:32
--- NOTE | 2020-01-18 15:05 | Occupational Therapy Eval ---
OT Evaluation-General/PLF Medical Diagnosis Admission Date Jan 18, 2020 at 10:48 Medical Diagnosis: Dyspnea Onset Date: Jan 16, 2020 Therapy Diagnosis Therapy Diagnosis: Weakness Precautions Precautions/Isolations: Fall Prevention, Standard Precautions Weight Bear Status Weight Bearing Restriction: Weight Bearing/Tolerated Referral Physician: Aga Referral Reason: Activity Tolerance, Self Care, Evaluation/Treatment, Strengthening/ROM Medical History Pertinent Medical History: Atrial Fib, CABG, CAD, DM, HTN, AK, OA Additional Medical History CHF Current History Pt. reports that she began having difficulty breathing, and called EMS. She has been on acute rehab before for same issues. Reviewed History: Yes Social History Home: Single Level Current Living Status: Alone Entry Into Home: Stairs With Railing Steps Into Home: 3 ADL-Prior Level of Function SCALE: Activities may be completed with or without assistive devices. 3-Qdnlxzwylb-btxrudn completes the activity by him/herself with no assistance from a helper. 5-Set-up or Clean-up Assistance-helper sets up or cleans up; patient completes activity. [place] assists only prior to or following the activity. 4-Supervision or Touching Assistance-helper provides verbal cues and/or touching/steadying and/or contact guard assistance as patient completes activity. Assistance may be provided throughout the activity or intermittently. 3-Partial/Moderate Assistance-helper does LESS THAN HALF the effort. [place] lifts, holds or supports trunk or limbs, but provides less than half the effort. 2-Substantial/Maximal Assistance-helper does MORE THAN HALF the effort. [place] lifts or holds trunk or limbs and provides more than half the effort. 1-Tgspvekdc-zxwkbh does ALL the effort. Patient does none of the effort to complete the activity. Or, the assistance of 2 or more helpers is required for the patient to complete the activity. If activity was not attempted, code reason: 7-Patient Refused. 9-Not Applicable-not attempted and the patient did not perform the activity before the current illness, exacerbation or injury. 10-Not Attempted due to Environmental Limitations-(lack of equipment, weather restraints, etc.). 88-Not Attempted due to Medical Conditions or Safety Concerns. ADL PLOF Comments Pt. reports that she lives alone and is typically independent with all daily skills. Self Care: Independent Functional Cognition: Independent DME/Equipment: Bath Chair, Shower DME/Equipment Comments Pt. has a walker. OT Current Status Subjective No pain reported. Appearance Pt. up in chair. Agrees to work with OT. Mental Status/Objective Patient Orientation: Person, Place, Time, Situation Current Upper Extremity ROM WFL Upper Extremity Strength WFL ADL-Treatment Eating (QC): 6 Oral Hygiene (QC): 5 Shower/Bathe Self (QC): 4 Upper Body Dressing (QC): 5 Lower Body Dressing (QC): 4 On/Off Footwear (QC): 4 Toileting Hygiene (QC): 4 Other Treatments Pt. declines showering stating that she is too cold. However, she agrees to spongebathe seated at sink. Pt. ambulates with walker and SBA. Pt. able to complete all ADLs after set up with SBA. After ADLs, pt. ambulates back to chair in room. Pt. educated on how to use lift chair remote, and is able to elevate her feet. Lunch arrives and pt. is given tray. No issues with eating noted. All needs met. Education OT Patient Education: Correct positioning, Modified ADL techniques, Progress toward Goal/Update tx plan, Purpose of tx/functional activities, Reviewed precautions, Rehab process, Transfer techniques Teaching Recipient: Patient Teaching Methods: Demonstration, Discussion Response to Teaching: Verbalize Understanding, Return Demonstration OT Senior Living Goals Senior Living Goals Time Frame: Feb 01, 2020 Eating (QC): 6 Oral Hygiene (QC): 6 Toileting Hygiene (QC): 6 Shower/Bathe Self (QC): 4 Upper Body Dressing (QC): 6 Lower Body Dressing (QC): 6 On/Off Footwear (QC): 6 Additional Goals: 1-Demonstrate ADL Tasks, 2-Verbalize Understanding, 3-ImproveStrength/Chip 1=Demonstrate adherence to instructed precautions during ADL tasks. 2=Patient will verbalize/demonstrate understanding of assistive devices/modifications for ADL. 3=Patient will improve strength/tolerance for activity to enable patient to perform ADL's. OT Education/Plan Problem List/Assessment Assessment: Decreased Activ Tolerance, Impaired Coordination, Impaired I ADL's, Impaired Self-Care Skills Discharge Recommendations Plan/Recommendations: Continue POC Therapy Discharge Recommendati: Home & Family Treatment Plan/Plan of Care Treatment,Training & Education: Yes Patient would benefit from OT for education, treatment and training to promote independence in ADL's, mobility, safety and/or upper extremity function for ADL's. Plan of Care: ADL Retraining, Functional Mobility, Group Exercise/Act as Ind, UE Funct Exercise/Act Treatment Duration: Feb 01, 2020 Frequency: At least 5 of 7 days/Wk (IRF) Estimated Hrs Per Day: 1.5 hours per day Agreement: Yes Rehab Potential: Good Time/GCodes Start Time: 11:15 Stop Time: 12:00 Total Time Billed (hr/min): 45 Billed Treatment Time 1, EVL x 15minutes, ADL x 30minutes MADELIN PUTNAM OT Jan 18, 2020 15:05
--- NOTE | 2020-01-18 15:18 | NUR ---
CM/SS ADMISSION Patient was admitted to ARU from [facility] for CHF and debility. She presented to [facility] 01/16/20 with CHF, respiratory failure with hypoxia, sepsis. Other comorbidities are, in part, CAD (hx CABG), DM, HTN, HLP, severe OA in knees, BiPAP dependence. Patient was on ARU September 2019. She continues to reside home alone and again wishes to return there when able. She has one son and his family, she indicates they are busy and not available for routine supplemental assistance. They had graduated away from supplementing assistance from her last hospitalization. [facility]: [facility] INSURANCE: Medicare, [facility] Supplement DME: Patient has 4[employer] that she uses, multiple canes (standard, pronged, etc), Hip Kit. SERVICES: Patient has meal delivered through [employer] [facility] site. She called them today to suspend meals until she returns home. BARRIERS TO DISCHARGE PLANNING: Patient is adequately insured and appears to have means to obtain what is needed at discharge. She explored resources for in-home assistance last stay but was reluctant to move forward to pay per hour for services. She has only the one child and is sensitive to not wanting to be a burden regarding time/assistance for her. Patient HHC services were set up last time through her preferred agency, [facility]. Anticipate home health will be recommended for post hospital care, patient indicates she would prefer only RN and no therapies. CONTACTS: Dejuan Babb, Son [address] [place] [address] Patient was here recently as noted, she understands the process and purpose of the weekly team conference and that her first review will be 01/20/20.
--- NOTE | 2020-01-18 15:27 | Occupational Ther Daily Note ---
OT Current Status-Daily Note Subjective No pain reported. Mental Status/Objective Patient Orientation: Person, Place, Time, Situation ADL-Treatment Therapy Code Descriptions/Definitions Functional [place] Measure: 0=Not Assessed/NA 4=Minimal Assistance 1=Total Assistance 5=Supervision or Setup 2=Maximal Assistance 6=Modified [place] 3=Moderate Assistance 7=Complete IndependenceSCALE: Activities may be completed with or without assistive devices. 4-Ywdhikqcnp-avshbqa completes the activity by him/herself with no assistance from a helper. 5-Set-up or Clean-up Assistance-helper sets up or cleans up; patient completes activity. [place] assists only prior to or following the activity. 4-Supervision or Touching Assistance-helper provides verbal cues and/or touching/steadying and/or contact guard assistance as patient completes activity. Assistance may be provided throughout the activity or intermittently. 3-Partial/Moderate Assistance-helper does LESS THAN HALF the effort. [place] lifts, holds or supports trunk or limbs, but provides less than half the effort. 2-Substantial/Maximal Assistance-helper does MORE THAN HALF the effort. [place] lifts or holds trunk or limbs and provides more than half the effort. 2-Molncptkj-ljnohl does ALL the effort. Patient does none of the effort to complete the activity. Or, the assistance of 2 or more helpers is required for the patient to complete the activity. If activity was not attempted, code reason: 7-Patient Refused. 9-Not Applicable-not attempted and the patient did not perform the activity before the current illness, exacerbation or injury. 10-Not Attempted due to Environmental Limitations-(lack of equipment, weather restraints, etc.). 88-Not Attempted due to Medical Conditions or Safety Concerns. Toilet Transfer (QC): 4 Other Treatment Pt. agrees to treatment. She ambulates with SBA and walker to therapy gym. Pt. tolerates 10 minutes on arm bike at min resistance, with one rest break, for increased overall endurance. Pt. tolerated well with no SOA. Pt. then donned 1 lb. wrist weights and completed fine motor activities with reciprocal movements, for increased UE strength. Tolerated well. Pt. doffed weights and ambulated back to room. Transferred to toilet with SBA. Pt. with call light. All needs met. Education OT Patient Education: Correct positioning, Exercise program, Modified ADL techniques, Progress toward Goal/Update tx plan, Purpose of tx/functional activities, Reviewed precautions, Rehab process, Transfer techniques Teaching Recipient: Patient Teaching Methods: Demonstration, Discussion Response to Teaching: Verbalize Understanding, Return Demonstration OT Casino Banker Goals Casino Banker Goals Time Frame: Feb 01, 2020 Eating (QC): 6 Oral Hygiene (QC): 6 Toileting Hygiene (QC): 6 Shower/Bathe Self (QC): 4 Upper Body Dressing (QC): 6 Lower Body Dressing (QC): 6 On/Off Footwear (QC): 6 Additional Goals: 1-Demonstrate ADL Tasks, 2-Verbalize Understanding, 3- ImproveStrength/Chip 1=Demonstrate adherence to instructed precautions during ADL tasks. 2=Patient will verbalize/demonstrate understanding of assistive devices/modifications for ADL. 3=Patient will improve strength/tolerance for activity to enable patient to perform ADL's. OT Education/Plan Problem List/Assessment Assessment: Decreased Activ Tolerance, Impaired I ADL's, Impaired Self-Care Sk ills Discharge Recommendations Plan/Recommendations: Continue POC Therapy Discharge Recommendati: Home & Family, Post Acute OT Treatment Plan/Plan of Care Treatment,Training & Education: Yes Patient would benefit from OT for education, treatment and training to promote independence in ADL's, mobility, safety and/or upper extremity function for ADL's. Plan of Care: ADL Retraining, Functional Mobility, Group Exercise/Act as Ind, UE Funct Exercise/Act Treatment Duration: Feb 01, 2020 Frequency: At least 5 of 7 days/Wk (IRF) Estimated Hrs Per Day: 1.5 hours per day Agreement: Yes Rehab Potential: Good Time/GCodes Start Time: 13:30 Stop Time: 14:15 Total Time Billed (hr/min): 45 Billed Treatment Time 1, FA x 30minutes, Ex x 15minutes MADELIN PUTNAM OT Jan 18, 2020 15:27
--- NOTE | 2020-01-18 15:34 | Physical Therapy Daily Note ---
PT Daily Note-Current Subjective Pt presents supine in bed. Pt agrees to PT. Pt reports no pain. Appearance At conclusion of PT treatment pt returns to bed where she has access to tray, call button, and all needs met. Circuitry Negative Inspector is present in room. Mental Status Patient Orientation: Person, Place, Time, Eyes Open, Situation Attachments: Oxygen Transfers SCALE: Activities may be completed with or without assistive devices. 1-Uerzzxrspu-smfibzn completes the activity by him/herself with no assistance from a helper. 5-Set-up or Clean-up Assistance-helper sets up or cleans up; patient completes activity. [place] assists only prior to or following the activity. 4-Supervision or Touching Assistance-helper provides verbal cues and/or touchi ng/steadying and/or contact guard assistance as patient completes activity. Assistance may be provided throughout the activity or intermittently. 3-Partial/Moderate Assistance-helper does LESS THAN HALF the effort. [place] lifts, holds or supports trunk or limbs, but provides less than half the effort. 2-Substantial/Maximal Assistance-helper does MORE THAN HALF the effort. [place] lifts or holds trunk or limbs and provides more than half the effort. 7-Gedhltvxi-iyqdgo does ALL the effort. Patient does none of the effort to complete the activity. Or, the assistance of 2 or more helpers is required for the patient to complete the activity. If activity was not attempted, code reason: 7-Patient Refused. 9-Not Applicable-not attempted and the patient did not perform the activity before the current illness, exacerbation or injury. 10-Not Attempted due to Environmental Limitations-(lack of equipment, weather restraints, etc.). 88-Not Attempted due to Medical Conditions or Safety Concerns. Sit to Lying (QC): 3 Lying to Sitting/Side of Bed(Q: 4 Sit to Stand (QC): 4 Chair/Odw-hu-Houoy Xfer(QC): 4 Weight Bearing Right Lower Extremity: Right Full Weight Bearing Left Lower Extremity: Left Full Weight Bearing Gait Training Does the Patient Walk?: Yes Distance: 150'x2 Walk 10 feet (QC): 4 Walk 50 ft with 2 Turns(QC): 4 Walk 150 ft (QC): 4 Gait Assistive Device: FWW Exercises NuStep Minutes: 15 NuStep Workload: 4 Treatments LE strengthening Assessment Current Status: Fair Progress Pt does not require rest break during ambulation or 15min of aerobic activity. PT Short Term Goals Short Term Goals Time Frame: Jan 25, 2020 Roll Left & Right: 5 Sit to lyin Lying to sitting on side of be: 5 Sit to stand: 5 Chair/qai-zp-uporu transfer: 5 Walk 10 feet: 5 Walk 50 feet with two turns: 5 Walk 150 feet: 5 PT Tray Line Supervisor Goals Tray Line Supervisor Goals PT Penitentiary Goals Time Frame: Feb 08, 2020 Roll Left & Right (QC): 6 Sit to Lying (QC): 6 Lying-Sitting on Side/Bed(QC): 6 Sit to Stand (QC): 6 Chair/Hfs-wj-Yfbav Xfer(QC): 6 Toilet Transfer (QC): 6 Car Transfer (QC): 6 Does the Patient Walk: Yes Walk 10 feet (QC): 6 Walk 50ft with 2 Turns (QC): 6 Walk 150 ft (QC): 6 Walking 10ft on Uneven Surface: 6 1 Step (curb) (QC): 5 4 Steps (QC): 5 12 Steps (QC): 5 Picking up an Object (QC): 5 Does the Pt use WC or Scooter?: No Wheel 50 feet with 2 turns (QC: 9 Wheel 150 feet: 9 PT Plan Problem List Problem List: Activity Tolerance, Functional Strength, Safety, Balance, Gait, Transfer, Bed Mobility, ROM Treatment/Plan Treatment Plan: Continue Plan of Care Treatment Plan: Bed Mobility, Education, Functional Activity Chip, Functional Strength, Group Therapy, Gait, Safety, Therapeutic Exercise, Transfers Treatment Duration: Feb 01, 2020 Frequency: At least 5 of 7 days/Wk (IRF) Estimated Hrs Per Day: 1.5 hours per day Patient and/or Family Agrees t: Yes Safety Risks/Education Patient Education: Gait Training, Transfer Techniques, Correct Positioning, Safety Issues Teaching Recipient: Patient Teaching Methods: Demonstration, Discussion Response to Teaching: Reinforcement Needed Time/GCodes Time In: 1440 Time Out: 1310 Total Billed Treatment Time: 30 Total Billed Treatment 1 visit GT 15' EX 15' ISABEL TAMAYO PT Jan 18, 2020 15:34
[2020-01-18] MEDS: ENOXAPARIN 40 MG/0.4 ML (LOVENOX) SYR SC SCH (15:36)
[2020-01-18 16:13] VITALS: BP 155/70
[2020-01-18] MEDS: SENNA W/DOCUSATE (SENOKOT S) TABLET PO SCH (20:56)
[2020-01-18] MEDS: DOCUSATE SODIUM 100 MG (COLACE) CAP PO SCH (21:44)
[2020-01-18] MEDS: polyethylene glycoL POWDER 17 GM (MIRALAX) PACK PO SCH (21:44)
[2020-01-19 05:12] LABS: BASOPHILS % (AUTO) 1 % (0-10); EOSINOPHILS # (AUTO) 0.2 10^3/uL (0.0-0.3); EOSINOPHILS % (AUTO) 4 % (0-10); HEMATOCRIT 37 % (35-52); HEMOGLOBIN 11.3 g/dL (11.5-16.0); LYMPHOCYTES % (AUTO) 26 % (12-44); MEAN CORPUSCULAR HEMOGLOBIN 28 pg (25-34); MEAN CORPUSCULAR HGB CONC 31 g/dL (32-36); MEAN CORPUSCULAR VOLUME 91 fL (80-99); MEAN PLATELET VOLUME 9.5 fL (9.0-12.2); MONOCYTES # (AUTO) 0.5 10^3/uL (0.0-1.0); MONOCYTES % (AUTO) 13 % (0-12); NEUTROPHILS # (AUTO) 2.3 10^3/uL (1.8-7.8); NEUTROPHILS % (AUTO) 57 % (42-75); PLATELET COUNT 205 10^3/uL (130-400)
[2020-01-19 05:31] LABS: ALBUMIN 3.7 GM/DL (3.2-4.5); BILIRUBIN,TOTAL 0.6 MG/DL (0.1-1.0); CALCIUM 8.9 MG/DL (8.5-10.1); CREATININE SERUM 1.33 MG/DL (0.60-1.30); POTASSIUM 3.7 MMOL/L (3.6-5.0); TOTAL PROTEIN 6.6 GM/DL (6.4-8.2)
--- NOTE | 2020-01-19 06:15 | Individualized Plan of Care ---
Individualized Plan of Care Rehab Nursing IPOC Order Admission Date Jan 18, 2020 at 10:48 Current Orders Orders Admission Order(Inpt,Obs,Sdc) (01/18/20 10:03) Vital Signs: Per Unit Policy ( 08,16,00 (01/18/20 10:03) [place] 09,21 (01/18/20 10:03) Sequential Compression Device Q4H (01/18/20 10:03) Braided Rug Maker-Inpt Rehab Con (01/18/20 10:03) Rehab Nursing Orders-Ipoc (01/18/20 10:03) Physical Therapy Rehab Orders (01/18/20 10:03) Occupational Therapy Rehab Ord (01/18/20 10:03) Speech Therapy Rehab Orders (01/18/20 10:03) Cbc With Automated Diff (01/19/20 06:00) Comprehensive Metabolic Panel (01/19/20 06:00) Intake & Output 06,14,22 (01/18/20 10:03) Precautions (Aru) (01/18/20 10:03) Weekly Weight WEEK (01/18/20 10:03) Rehab-Intensity Of Therapy (01/18/20 10:03) Initiate Admission Nursing Pro .admission (01/18/20 10:03) Acetaminophen Tablet (Tylenol Tablet) (01/18/20 10:15) Alprazolam Tablet (Xanax Tablet) (01/18/20 10:15) Calcium Carbonate Chew Tablet (Antacid C (01/18/20 10:15) Diphenhydramine Tablet (Benadryl Tablet) (01/18/20 10:15) Docusate Sodium Capsule (Colace Capsule) (01/18/20 21:00) Docusate Sodium Capsule (Colace Capsule) (01/18/20 10:15) Bisacodyl Suppository (Dulcolax Supposit (01/18/20 10:15) Lactulose Oral Solution (Enulose Oral So (01/18/20 10:15) Na Phos/Na Biphos Enema (Fleet Enema Steve (01/18/20 10:15) Guaifenesin/Codeine Syrup (Robitussin Ac (01/18/20 10:15) Loperamide Tablet (Imodium Tablet) (01/18/20 10:15) Enoxaparin Injection (Lovenox Injection) (01/18/20 15:00) Melatonin Tablet (Melatonin Tablet) (01/18/20 10:15) Polyethylene Glycol Powder Pkt (Miralax (01/18/20 21:00) Ondansetron Oral Dissolve Tab (Zofran (01/18/20 10:15) Senna S Tablet (Senokot S Tablet) (01/18/20 21:00) Initiate Admission Nursing Pro .admission (01/18/20 10:03) Admission Arrival Bed Request (01/18/20 10:47) Acetaminophen Tablet/Caplet (Tylenol T (01/18/20 11:15) Albuterol Pre-Mix Nebs (Rt) (Proventil (01/18/20 11:30) Svn Small Volume Nebulizer (01/18/20 11:27) Patient Visit (01/18/20 ) Speech Sound Lang Comp (01/18/20 ) Patient Visit (01/18/20 ) Pt Eval Low Complexity (01/18/20 ) Functional Activities, Ea 15 (01/18/20 ) Gait Training, Ea 15 Min (01/18/20 ) Exercise Therap, Ea 15 Min (01/18/20 ) Furosemide Injection (Lasix Injection) (01/19/20 09:00) Furosemide Injection (Lasix Injection) (01/19/20 17:00) Loratadine Tablet (Claritin Tablet) (01/19/20 09:00) Loratadine Tablet (Claritin Tablet) (01/19/20 09:00) Enoxaparin Injection (Lovenox Injection) (01/19/20 09:00) Fluticasone Nasal [place] (Flonase Nasal S (01/19/20 09:00) Hydrocodone/Apap 5/325 Tablet (Lortab 5 (01/19/20 09:00) Loperamide Tablet (Imodium Tablet) (01/19/20 09:00) Loratadine Tablet (Claritin Tablet) (01/19/20 09:00) Melatonin Tablet (Melatonin Tablet) (01/19/20 09:00) Insulin Aspart (Novolog) (Novolog (Charg (01/19/20 11:00) Ondansetron Injection (Zofran Injectio (01/19/20 09:00) Potassium Chloride (Tablet) (Klor Con Ta (01/19/20 09:15) Senna S Tablet (Senokot S Tablet) (01/19/20 09:00) Diphenhydramine Tablet (Benadryl Tablet) (01/19/20 09:00) Guaifenesin/Codeine Syrup (Robitussin Ac (01/19/20 09:00) Consult Cardiology (01/19/20 08:59) Amlodipine Tablet (Norvasc Tablet) (01/19/20 09:00) Aspirin Enteric Coated Tablet (Ecotrin T (01/19/20 09:00) Atorvastatin Tablet (Lipitor Tablet) (01/19/20 09:00) Glyburide Tablet (Micronase Tablet) (01/19/20 09:00) Hydralazine Tablet (Apresoline Tablet) (01/19/20 09:00) Metoprolol Succinate (Xl) Tab (Toprol Xl (01/19/20 09:00) Fenofibrate,Micronized Capsule (Lofibra (01/19/20 21:00) Patient Visit (01/19/20 ) Gait Training, Ea 15 Min (01/19/20 ) Exercise Therap, Ea 15 Min (01/19/20 ) Functional Activities, Ea 15 (01/19/20 ) Albuterol Pre-Mix Nebs (Rt) (Proventil (01/19/20 13:00) Mat Initiate Protocol (01/19/20 12:14) Albuterol Pre-Mix Nebs (Rt) (Proventil (01/19/20 21:00) Patient Visit (01/19/20 ) Functional Activities, Ea 15 (01/19/20 ) Gait Training, Ea 15 Min (01/19/20 ) Cho 60g/M 3snack (16-2000 Dex) (01/19/20 Dinner) Dietary Consult (01/19/20 17:28) Basic Metabolic Panel (01/20/20 05:03) Rehab Nursing Orders: Ongoing Assess. of Cognitive Status, Ongoing Assess. of Function Status, Bladder Management, Bladder Scan, Bladder Training, Bowel Management, Bowel Training, Disease Management & Educaiton, DVT Prophylaxis, Fa ll Prevention, Fluid/Electrolyte/Nutrition Mgmt, Infection Prevention, Medication Management & Education, Management of Risks & Complications, Management of Skin Intergrity, Nutrition Management, Pain Management, Patient/Family Support, Safety Management Intensity of Therapy to be met Patient to be seen: Min.3h per day/5 of 7d PT IPOC Problem List: Activity Tolerance, Functional Strength, Safety, Balance, Gait, Transfer, Bed Mobility, ROM Treatment Plan: Continue Plan of Care Bed Mobility, Education, Functional Activity Chip, Functional Strength, Group Therapy, Gait, Safety, Therapeutic Exercise, Transfers Treatment Duration: Feb 01, 2020 Frequency: At least 5 of 7 days/Wk (IRF) Estimated Hrs Per Day: 1.5 hours per day OT IPOC Problems: Decreased Activ Tolerance, Impaired I ADL's, Impaired Self-Care Skills OT Treatment, Training and Edu: Yes Plan of Care: ADL Retraining, Functional Mobility, Group Exercise/Act as Ind, UE Funct Exercise/Act Treatment Duration: Feb 01, 2020 Frequency: At least 5 of 7 days/Wk (IRF) Estimated Hrs Per Day: 1.[address] IPOC Speech Therapy Treatment Plan: Discontinue ST Treatment Duration: Jan 18, 2020 Frequency: 1 time per week Estimated Hrs Per Day: .25 hour per day Braided Rug Maker/Case Mgmt Braided Rug Maker/Case Managemen: Discharge Planning Dietitian/Ham Sawyer Dietitian/Ham Sawyer to monitor nutritional status and make changes and/or recommendations as needed and work with speech pathology on dietary upgrades as the occur. Physician IPOC Medical Issues being managed closely and that require the 24 hour availability of a physician: Recent resp failure from CHF volume overload requiring biPAP and CSD admission with hypoxia requiring IV Lasix will need close monitoring for decompensation. Medical Issues: Bowel/Bladder Function, DVT Prophylaxis, Falls Precautions, Fluid/Electrolyte/Nutrition Balance, Infection Protection, Pain Management Brief Synthesis of Preadmission Screen, Post-Admission Evaluation, and Therapy Evaluations: PT OT will focus on regaining strength while building stamina and weaning off O2 in order to return home. Medical Prognosis: Good Anticipated Length of Stay: 7 days KEILA MARTINEZ DO Jan 19, 2020 06:15
--- NOTE | 2020-01-19 06:15 | PM&R Progress Note ---
Subjective HPI/CC On Admission Date Seen by Provider: Jan 19, 2020 Time Seen by Provider: 09:30 Subjective/Events-last exam Pt remains on 2L of oxygen Therapy is going very well today Had three BMs yesterday Lasix 20 Mg IV BID to complete the volume overload resolution Labs are okay Creatinine 1.3 Gravity Prospecting Observer Helper will talk to her about the low sodium diet Review of Systems General: Fatigue, Malaise Pulmonary: Dyspnea Neurological: Weakness Objective Exam Vital Signs Vital Signs Date Time Temp Pulse Resp B/P (MAP) Pulse Ox O2 Delivery O2 Flow Rate FiO2 01/19/20 20:10 Nasal Cannula 2.00 01/19/20 15:55 36.8 69 18 119/56 (77) 97 01/19/20 12:14 28 Capillary Refill : Less Than 3 Seconds General Appearance: No Apparent Distress, WD/WN, Chronically ill HEENT: PERRL/EOMI, Normal ENT Inspection, Pharynx Normal Neck: Full Range of Motion, Normal Inspection, Non Tender, Supple, Carotid Bruit Respiratory: Chest Non Tender, Lungs Clear, No Accessory Muscle Use, No Respiratory Distress, Decreased Breath Sounds Cardiovascular: Regular Rate, Rhythm, No Gallop, No JVD, No Murmur, Normal Peripheral Pulses Gastrointestinal: Normal Bowel Sounds, No Organomegaly, No Pulsatile Mass, Non Tender, Soft Back: Normal Inspection, No CVA Tenderness, No Vertebral Tenderness Extremity: Normal Capillary Refill, Normal Inspection, Normal Range of Motion, Non Tender, No Calf Tenderness, Pedal Edema Neurologic/Psychiatric: Alert, Oriented x3, No Motor/Sensory Deficits, Normal Mood/Affect, nremt II-XII Norm as Tested, Motor Weakness (generalized lower extremities during ambulation) Skin: Normal Color, Warm/Dry Lymphatic: No Adenopathy Results/Procedures Lab Patient resulted labs reviewed. FIM Transfers Therapy Code Descriptions/Definitions Functional [place] Measure: 0=Not Assessed/NA 4=Minimal Assistance 1=Total Assistance 5=Supervision or Setup 2=Maximal Assistance 6=Modified [place] 3=Moderate Assistance 7=Complete IndependenceSCALE: Activities may be completed with or without assistive devices. 9-Gpmpngwizt-nlmrcqe completes the activity by him/herself with no assistance from a helper. 5-Set-up or Clean-up Assistance-helper sets up or cleans up; patient completes activity. [place] assists only prior to or following the activity. 4-Supervision or Touching Assistance-helper provides verbal cues and/or touching/steadying and/or contact guard assistance as patient completes activity. Assistance may be provided throughout the activity or intermittently. 3-Partial/Moderate Assistance-helper does LESS THAN HALF the effort. [place] lifts, holds or supports trunk or limbs, but provides less than half the effort. 2-Substantial/Maximal Assistance-helper does MORE THAN HALF the effort. [place] lifts or holds trunk or limbs and provides more than half the effort. 4-Elptqdbri-xqurvz does ALL the effort. Patient does none of the effort to complete the activity. Or, the assistance of 2 or more helpers is required for the patient to complete the activity. If activity was not attempted, code reason: 7-Patient Refused. 9-Not Applicable-not attempted and the patient did not perform the activity before the current illness, exacerbation or injury. 10-Not Attempted due to Environmental Limitations-(lack of equipment, weather restraints, etc.). 88-Not Attempted due to Medical Conditions or Safety Concerns. Roll Left to Right (QC): 4 Sit to Lying (QC): 3 Sit to Stand (QC): 4 Chair/Gjv-tb-Chzfy Xfer(QC): 4 Car Transfer (QC): 4 Gait Training Does the Patient Walk?: Yes Distance: 150'x2 Walk 10 feet (QC): 4 Walk 50 ft with 2 Turns(QC): 4 Walk 150 ft (QC): 4 Walking 10ft/uneven surface-QC: 4 Gait Assistive Device: FWW Wheelchair Training Does the Pt Use a Wheelchair?: No Wheel 50 ft with 2 turns (QC): 9 Wheel 150 ft (QC): 9 Stair Training #of Steps: 1 1 Step (curb) (QC): 3 4 Steps (QC): 88 12 Steps (QC): 88 Balance Picking up an Object (QC): 4 ADL-Treatment Eating (QC): 6 Oral Hygiene (QC): 5 Shower/Bathe Self (QC): 4 Upper Body Dressing (QC): 5 Lower Body Dressing (QC): 4 On/Off Footwear (QC): 4 Toileting Hygiene (QC): 4 Toilet Transfer (QC): 4 Assessment/Plan Assessment and Plan Assess & Plan/Chief Complaint Assessment: CHF myopathy CRI DM HTN CAD CABG hx HLP Hypoxia h/o PAF w/RVR last admit Anemia Hematochezia hx Plan: Monitor labs Lasix IRF protocol O2 wean 01/19/20: Wean O2 Monitor BP Lasix IV BID (1) Acute on chronic heart failure Status: Acute (2) BiPAP (biphasic positive airway pressure) dependence (3) Hypertension (4) Hyperlipidemia (5) CAD (coronary artery disease) (6) Atrial fibrillation with rapid ventricular response (7) Respiratory distress (8) Diabetes (9) Hx of CABG KEILA MARTINEZ DO Jan 19, 2020 06:15
[2020-01-19 06:28] VITALS: BP 150/65
[2020-01-19] MEDS: DOCUSATE SODIUM 100 MG (COLACE) CAP PO SCH ×2 (08:40→19:44)
[2020-01-19] MEDS: polyethylene glycoL POWDER 17 GM (MIRALAX) PACK PO SCH ×2 (08:40→19:46)
[2020-01-19] MEDS: SENNA W/DOCUSATE (SENOKOT S) TABLET PO SCH ×3 (08:40→19:46)
[2020-01-19] MEDS ORDERED: ENOXAPARIN 40 MG/0.4 ML (LOVENOX) SYR SC SCH (09:00)
[2020-01-19] MEDS ORDERED: guaiFENesin/CODEINE (ROBITUSSIN AC) 10ML UDC PO PRN (09:00)
[2020-01-19] MEDS ORDERED: LOPERAMIDE 2 MG (IMODIUM) TABLET PO PRN (09:00)
[2020-01-19] MEDS ORDERED: FUROSEMIDE 40 MG/4 ML INJ (LASIX) IVP NR (09:00)
[2020-01-19] MEDS: LORATADINE (CLARITIN) 10 MG TAB PO SCH ×3 (09:00→20:52)
[2020-01-19] MEDS ORDERED: HYDROcodone/APAP 5 MG/325 MG (LORTAB) TAB PO PRN (09:00)
[2020-01-19] MEDS ORDERED: LORATADINE (CLARITIN) 10 MG TAB PO ONE (09:00)
[2020-01-19] MEDS ORDERED: ONDANSETRON 4 MG/2 ML (SDV) Z0FRAN IVP PRN (09:00)
[2020-01-19] MEDS: FLUTICASONE NASAL SPRAY (FLONASE) 16 GM BTL NS SCH (09:00)
[2020-01-19] MEDS ORDERED: MELATONIN 3 MG TABLET PO PRN (09:00)
[2020-01-19] MEDS ORDERED: diphenhydrAMINE 25 MG TAB (BENADRYL) PO PRN (09:00)
[2020-01-19] MEDS ORDERED: KCL 10 MEQ TAB (MICRO K) PO NR (09:15)
[2020-01-19] MEDS: ASPIRIN E.C. 81 MG (ECOTRIN) TAB PO SCH (10:02)
[2020-01-19] MEDS: glyBURIDE 2.5 MG (MICRONASE) TAB PO SCH (10:02)
[2020-01-19] MEDS: meTOprolol SUCCINATE 100 MG (TOPROL XL) TAB PO SCH (10:02)
[2020-01-19] MEDS: hydrALAZINE (APRESOLINE) 25 MG TAB PO SCH ×2 (10:03→20:52)
[2020-01-19] MEDS: amLODIPine 5 MG (NORVASC) TAB PO SCH (10:03)
--- NOTE | 2020-01-19 11:10 | NUR ---
Pt is Evangelical. Multiple Knife Edge Trimmer Operator provided prayer and Communion.
[2020-01-19] MEDS: inSUlin ASPART (NovoLOG) 1 UNIT/0.01 ML (CHARGE PER UNIT) SC SCH ×3 (11:11→20:22)
--- NOTE | 2020-01-19 11:49 | Occupational Ther Daily Note ---
OT Current Status-Daily Note Subjective No pain reported. Pt. states that she is feeling good today. Appearance Pt. is working with PT. Alert and oriented. Mental Status/Objective Patient Orientation: Person, Place, Time, Situation ADL-Treatment Therapy Code Descriptions/Definitions Functional [place] Measure: 0=Not Assessed/NA 4=Minimal Assistance 1=Total Assistance 5=Supervision or Setup 2=Maximal Assistance 6=Modified [place] 3=Moderate Assistance 7=Complete IndependenceSCALE: Activities may be completed with or without assistive devices. 7-Wwelaraipp-henmmsz completes the activity by him/herself with no assistance from a helper. 5-Set-up or Clean-up Assistance-helper sets up or cleans up; patient completes activity. [place] assists only prior to or following the activity. 4-Supervision or Touching Assistance-helper provides verbal cues and/or touching/steadying and/or contact guard assistance as patient completes act ivity. Assistance may be provided throughout the activity or intermittently. 3-Partial/Moderate Assistance-helper does LESS THAN HALF the effort. [place] lifts, holds or supports trunk or limbs, but provides less than half the effort. 2-Substantial/Maximal Assistance-helper does MORE THAN HALF the effort. [place] lifts or holds trunk or limbs and provides more than half the effort. 4-Jijneahrz-viwjfc does ALL the effort. Patient does none of the effort to complete the activity. Or, the assistance of 2 or more helpers is required for the patient to complete the activity. If activity was not attempted, code reason: 7-Patient Refused. 9-Not Applicable-not attempted and the patient did not perform the activity before the current illness, exacerbation or injury. 10-Not Attempted due to Environmental Limitations-(lack of equipment, weather restraints, etc.). 88-Not Attempted due to Medical Conditions or Safety Concerns. Shower/Bathe Self (QC): 4 Upper Body Dressing (QC): 5 Lower Body Dressing (QC): 5 On/Off Footwear: 5 Other Treatment OT/PT begin treatment with partial co-treatment due to need for higher level skilled balance assessments. Pt. stands and works on balance unsupported while participating in UE activity with balloon bat. OT focuses on UE while PT assesses balance. Pt. able to stand approximately 10 minutes and bat at balloon, with no SOA noted while on 2 L 02. No LOB noted. Pt. ambulates back to room, and agrees to shower. OT sets up shower and clothing and pt. able to complete all tasks in shower area. Pt. ambulates back to chair in room, and all needs met after shower activity. Education OT Patient Education: Correct positioning, Exercise program, Modified ADL techniques, Progress toward Goal/Update tx plan, Purpose of tx/functional activities, Reviewed precautions, Rehab process, Transfer techniques Teaching Recipient: Patient Teaching Methods: Demonstration, Discussion Response to Teaching: Verbalize Understanding, Return Demonstration OT Fpc Goals Fpc Goals Time Frame: Feb 01, 2020 Eating (QC): 6 Oral Hygiene (QC): 6 Toileting Hygiene (QC): 6 Shower/Bathe Self (QC): 4 Upper Body Dressing (QC): 6 Lower Body Dressing (QC): 6 On/Off Footwear (QC): 6 Additional Goals: 1-Demonstrate ADL Tasks, 2-Verbalize Understanding, 3- ImproveStrength/Chip 1=Demonstrate adherence to instructed precautions during ADL tasks. 2=Patient will verbalize/demonstrate understanding of assistive devices/modifications for ADL. 3=Patient will improve strength/tolerance for activity to enable patient to perform ADL's. OT Education/Plan Problem List/Assessment Assessment: Decreased Activ Tolerance, Impaired I ADL's Discharge Recommendations Plan/Recommendations: Continue POC Therapy Discharge Recommendati: Home & Family Treatment Plan/Plan of Care Treatment,Training & Education: Yes Patient would benefit from OT for education, treatment and training to promote independence in ADL's, mobility, safety and/or upper extremity function for ADL's. Plan of Care: ADL Retraining, Functional Mobility, Group Exercise/Act as Ind, UE Funct Exercise/Act Treatment Duration: Feb 01, 2020 Frequency: At least 5 of 7 days/Wk (IRF) Estimated Hrs Per Day: 1.5 hours per day Agreement: Yes Rehab Potential: Good Time/GCodes Start Time: 09:45 Stop Time: 10:45 Total Time Billed (hr/min): 60 Billed Treatment Time 8113-4000 1, FA x 15minutes [id number] ADL x 45minutes MADELIN PUTNAM OT Jan 19, 2020 11:49
[2020-01-19 12:14] VITALS: BP 150/65
[2020-01-19] MEDS ORDERED: RT-ALBUTEROL SULF 2.5 MG/3 ML PRE-MIX VIAL INH PRN (13:00)
--- NOTE | 2020-01-19 13:01 | Physical Therapy Daily Note ---
PT Daily Note-Current Subjective Pt sitting in recliner upon arrival. Pt agrees to PT. Mental Status Patient Orientation: Person, Place, Situation Transfers SCALE: Activities may be completed with or without assistive devices. 8-Ljpwgyrquv-gamolva completes the activity by him/herself with no assistance from a helper. 5-Set-up or Clean-up Assistance-helper sets up or cleans up; patient completes activity. [place] assists only prior to or following the activity. 4-Supervision or Touching Assistance-helper provides verbal cues and/or touching/steadying and/or contact guard assistance as patient completes activity. Assistance may be provided throughout the activity or intermittently. 3-Partial/Moderate Assistance-helper does LESS THAN HALF the effort. [place] lifts, holds or supports trunk or limbs, but provides less than half the effort. 2-Substantial/Maximal Assistance-helper does MORE THAN HALF the effort. [place] lifts or holds trunk or limbs and provides more than half the effort. 2-Awijzteco-jfdssr does ALL the effort. Patient does none of the effort to complete the activity. Or, the assistance of 2 or more helpers is required for the patient to complete the activity. If activity was not attempted, code reason: 7-Patient Refused. 9-Not Applicable-not attempted and the patient did not perform the activity before the current illness, exacerbation or injury. 10-Not Attempted due to Environmental Limitations-(lack of equipment, weather restraints, etc.). 88-Not Attempted due to Medical Conditions or Safety Concerns. Sit to Stand (QC): 5 Toilet Transfer (QC): 5 Weight Bearing Right Lower Extremity: Right Full Weight Bearing Left Lower Extremity: Left Full Weight Bearing Gait Training Does the Patient Walk?: Yes Distance: 150' x2 Walk 10 feet (QC): 5 Walk 50 ft with 2 Turns(QC): 5 Walk 150 ft (QC): 5 Gait Persons Needed: 1 Gait Assistive Device: FWW Wheelchair Training Does the Pt Use a Wheelchair?: No Exercises Seated Therapy Exercises: Ankle pumps, Long arc quads, Hip flexion, Kicking activity Seated Reps: 15 NuStep Minutes: 13 NuStep Workload: 3 Treatments TF to standing and uses BR. Amb in hallway followed by Seated Ex & uses NuStep for 13m at WL 3. After short RB, amb in hallway before returning to room. All needs met, call light in hand. Assessment Current Status: Good Progress Pt chiki. tx well. PT Short Term Goals Short Term Goals Time Frame: Jan 25, 2020 Roll Left & Right: 5 Sit to lyin Lying to sitting on side of be: 5 Sit to stand: 5 Chair/fvo-ux-lmdxk transfer: 5 Walk 10 feet: 5 Walk 50 feet with two turns: 5 Walk 150 feet: 5 PT Detention Goals Detention Goals PT Washer Blanket Goals Time Frame: Feb 08, 2020 Roll Left & Right (QC): 6 Sit to Lying (QC): 6 Lying-Sitting on Side/Bed(QC): 6 Sit to Stand (QC): 6 Chair/Eel-be-Mfdup Xfer(QC): 6 Toilet Transfer (QC): 6 Car Transfer (QC): 6 Does the Patient Walk: Yes Walk 10 feet (QC): 6 Walk 50ft with 2 Turns (QC): 6 Walk 150 ft (QC): 6 Walking 10ft on Uneven Surface: 6 1 Step (curb) (QC): 5 4 Steps (QC): 5 12 Steps (QC): 5 Picking up an Object (QC): 5 Does the Pt use WC or Scooter?: No Wheel 50 feet with 2 turns (QC: 9 Wheel 150 feet: 9 PT Plan Problem List Problem List: Activity Tolerance Treatment/Plan Treatment Plan: Continue Plan of Care Treatment Plan: Bed Mobility, Education, Functional Activity Chip, Functional Strength, Group Therapy, Gait, Safety, Therapeutic Exercise, Transfers Treatment Duration: Feb 01, 2020 Frequency: At least 5 of 7 days/Wk (IRF) Estimated Hrs Per Day: 1.5 hours per day Patient and/or Family Agrees t: Yes Time/GCodes Time In: 900 Time Out: 1000 Total Billed Treatment Time: 60 Total Billed Treatment 1, GT (15m), EX x2 (30m) & FA (15m) CHELY MEYERS ARTIFICIAL FLOWERS DYER Jan 19, 2020 13:01
--- NOTE | 2020-01-19 13:37 | Occupational Ther Daily Note ---
OT Current Status-Daily Note Subjective No pain reported. Mental Status/Objective Patient Orientation: Person, Place, Time, Situation ADL-Treatment Therapy Code Descriptions/Definitions Functional [place] Measure: 0=Not Assessed/NA 4=Minimal Assistance 1=Total Assistance 5=Supervision or Setup 2=Maximal Assistance 6=Modified [place] 3=Moderate Assistance 7=Complete IndependenceSCALE: Activities may be completed with or without assistive devices. 0-Sajalagwzi-arfrtdq completes the activity by him/herself with no assistance from a helper. 5-Set-up or Clean-up Assistance-helper sets up or cleans up; patient completes activity. [place] assists only prior to or following the activity. 4-Supervision or Touching Assistance-helper provides verbal cues and/or touching/steadying and/or contact guard assistance as patient completes activity. Assistance may be provided throughout the activity or intermittently. 3-Partial/Moderate Assistance-helper does LESS THAN HALF the effort. [place] lifts, holds or supports trunk or limbs, but provides less than half the effort. 2-Substantial/Maximal Assistance-helper does MORE THAN HALF the effort. [place] lifts or holds trunk or limbs and provides more than half the effort. 3-Wtzabhfsw-lmtfze does ALL the effort. Patient does none of the effort to complete the activity. Or, the assistance of 2 or more helpers is required for the patient to complete the activity. If activity was not attempted, code reason: 7-Patient Refused. 9-Not Applicable-not attempted and the patient did not perform the activity before the current illness, exacerbation or injury. 10-Not Attempted due to Environmental Limitations-(lack of equipment, weather restraints, etc.). 88-Not Attempted due to Medical Conditions or Safety Concerns. Other Treatment Pt. agrees to work with OT. Transfers sit-stand with SBA and walker. Pt. ambulated at slow pace with 2 L 02, with walker and SBA to therapy gym. Pt. participated in arm bike activity x 9minutes, to increase overall endurance for functional tasks. Pt. on 2 L 02 and sats taken after arm bike activity. They were at 98%. No SOA noted. Pt. rested and then ambulated back at slow pace to therapy gym. Tolerated treatment well. All needs met in reclining chair. Education OT Patient Education: Correct positioning, Exercise program, Modified ADL techniques, Progress toward Goal/Update tx plan, Purpose of tx/functional activities, Reviewed precautions, Rehab process, Transfer techniques Teaching Recipient: Patient Teaching Methods: Demonstration, Discussion Response to Teaching: Verbalize Understanding, Return Demonstration OT Supply Specialist Goals Supply Specialist Goals Time Frame: Feb 01, 2020 Eating (QC): 6 Oral Hygiene (QC): 6 Toileting Hygiene (QC): 6 Shower/Bathe Self (QC): 4 Upper Body Dressing (QC): 6 Lower Body Dressing (QC): 6 On/Off Footwear (QC): 6 Additional Goals: 1-Demonstrate ADL Tasks, 2-Verbalize Understanding, 3- ImproveStrength/Chip 1=Demonstrate adherence to instructed precautions during ADL tasks. 2=Patient will verbalize/demonstrate understanding of assistive devices/modifications for ADL. 3=Patient will improve strength/tolerance for activity to enable patient to perform ADL's. OT Education/Plan Problem List/Assessment Assessment: Decreased Activ Tolerance, Impaired I ADL's Discharge Recommendations Plan/Recommendations: Continue POC Therapy Discharge Recommendati: Home & Family Treatment Plan/Plan of Care Treatment,Training & Education: Yes Patient would benefit from OT for education, treatment and training to promote independence in ADL's, mobility, safety and/or upper extremity function for ADL's. Plan of Care: ADL Retraining, Functional Mobility, Group Exercise/Act as Ind, UE Funct Exercise/Act Treatment Duration: Feb 01, 2020 Frequency: At least 5 of 7 days/Wk (IRF) Estimated Hrs Per Day: 1.5 hours per day Agreement: Yes Rehab Potential: Good Time/GCodes Start Time: 13:00 Stop Time: 13:30 Total Time Billed (hr/min): 30 Billed Treatment Time 1, FA x 15minutes, Ex x 15minutes MADELIN PUTNAM OT Jan 19, 2020 13:37
--- NOTE | 2020-01-19 14:37 | Physical Therapy Daily Note ---
PT Daily Note-Current Subjective Pt is sitting in recliner upon arrival. Pt agrees to PT. Pain Location: No Pain Reported Mental Status Patient Orientation: Person, Place, Time, Situation Attachments: Oxygen (1L) Transfers SCALE: Activities may be completed with or without assistive devices. 7-Fbjciaeith-rcfjopd completes the activity by him/herself with no assistance from a helper. 5-Set-up or Clean-up Assistance-helper sets up or cleans up; patient completes activity. [place] assists only prior to or following the activity. 4-Supervision or Touching Assistance-helper provides verbal cues and/or touching/steadying and/or contact guard assistance as patient completes activity. Assistance may be provided throughout the activity or intermittently. 3-Partial/Moderate Assistance-helper does LESS THAN HALF the effort. [place] lifts, holds or supports trunk or limbs, but provides less than half the effort. 2-Substantial/Maximal Assistance-helper does MORE THAN HALF the effort. [place] lifts or holds trunk or limbs and provides more than half the effort. 7-Ardbivksa-yxrxwz does ALL the effort. Patient does none of the effort to complete the activity. Or, the assistance of 2 or more helpers is required for the patient to complete the activity. If activity was not attempted, code reason: 7-Patient Refused. 9-Not Applicable-not attempted and the patient did not perform the activity before the current illness, exacerbation or injury. 10-Not Attempted due to Environmental Limitations-(lack of equipment, weather restraints, etc.). 88-Not Attempted due to Medical Conditions or Safety Concerns. Sit to Stand (QC): 6 Weight Bearing Right Lower Extremity: Right Full Weight Bearing Left Lower Extremity: Left Full Weight Bearing Gait Training Does the Patient Walk?: Yes Distance: 250' Walk 10 feet (QC): 5 Walk 50 ft with 2 Turns(QC): 5 Walk 150 ft (QC): 5 Gait Persons Needed: 1 Gait Assistive Device: FWW Wheelchair Training Does the Pt Use a Wheelchair?: No Treatments TF to standing and uses BR before leaving room. Pt amb. in hallway before returning to rest in recliner. All needs met, call light in hand. Assessment Current Status: Good Progress Pt chiki. tx well. PT Short Term Goals Short Term Goals Time Frame: Jan 25, 2020 Roll Left & Right: 5 Sit to lyin Lying to sitting on side of be: 5 Sit to stand: 5 Chair/ckv-it-gbamr transfer: 5 Walk 10 feet: 5 Walk 50 feet with two turns: 5 Walk 150 feet: 5 PT Facsimile Machine Operator Goals Correction Goals PT Correction Goals Time Frame: Feb 08, 2020 Roll Left & Right (QC): 6 Sit to Lying (QC): 6 Lying-Sitting on Side/Bed(QC): 6 Sit to Stand (QC): 6 Chair/Stf-tc-Sllsz Xfer(QC): 6 Toilet Transfer (QC): 6 Car Transfer (QC): 6 Does the Patient Walk: Yes Walk 10 feet (QC): 6 Walk 50ft with 2 Turns (QC): 6 Walk 150 ft (QC): 6 Walking 10ft on Uneven Surface: 6 1 Step (curb) (QC): 5 4 Steps (QC): 5 12 Steps (QC): 5 Picking up an Object (QC): 5 Does the Pt use WC or Scooter?: No Wheel 50 feet with 2 turns (QC: 9 Wheel 150 feet: 9 PT Plan Problem List Problem List: Activity Tolerance Treatment/Plan Treatment Plan: Continue Plan of Care Treatment Plan: Bed Mobility, Education, Functional Activity Chip, Functional Strength, Group Therapy, Gait, Safety, Therapeutic Exercise, Transfers Treatment Duration: Feb 01, 2020 Frequency: At least 5 of 7 days/Wk (IRF) Estimated Hrs Per Day: 1.5 hours per day Patient and/or Family Agrees t: Yes Safety Risks/Education Patient Education: Gait Training, Safety Issues Teaching Recipient: Patient Teaching Methods: Discussion Response to Teaching: Verbalize Understanding Time/GCodes Time In: 1400 Time Out: 1430 Total Billed Treatment Time: 30 Total Billed Treatment 1, FA (15m) & GT (15m) CHELY MEYERS FUNERAL DIRECTOR/EMBALMER/OWNER Jan 19, 2020 14:37
--- NOTE | 2020-01-19 15:19 | NUR ---
RD ASSESSMENT PMHx: CAD; afib; HTN; HLD; CHF; DM; CA(ovarian) PT INTERACTION: Pt was awake and pleasant during nutrition assessment. Pt states current appetite is good. Note avg PO intake 58% x3meal, per chart review. Pt states following a low-CHO diet at home, and has no issues with chewing/swallowing food. Pt states recent issues with nausea, vomiting, and constipation, and that her last BM was 01/18. Note pt currently on bowel regimen of colace BID, senna BID, and miralax BID, per chart review. Pt states recent wt changes as "going up and down regularly." Note recent 13# wt gain x4mon, per chart review. Pt states current DM management is "really good, up until I got here." Note unable to determine recent HbA1c, per chart review. Pt states having diet questions moving forward. ABNORMAL NUTRITION-RELATED LAB VALUES LOW: Cl 97 HIGH: BUN 29; cr 1.33; glu 115 Est. kcal needs: 8435-0049 kcal | 15-20 kcal/kg Est. Pro needs: 68-85 g Pro | 0.8-1.0 g Pro/kg PES STATEMENT: Inadequate oral intake (NI-2.1) related to loss of appetite, nausea, vomiting, and constipation, as evidenced by pt interview and avg PO intake 58% x3meal. INTERVENTION: Continue with current diet order of 2000mg Na diet. Pt may benefit from consistent CHO restriction if blood glucose levels become elevated. Pt may benefit from nutrition supplementation if PO intake declines. Will offer diet education on 01/19, as more time to provide education will be available. Will continue to follow and reassess as pt needs, intake, and status change. Denise Disla, MS RD LD
[2020-01-19 15:55] VITALS: BP 119/56
[2020-01-19] MEDS: ENOXAPARIN 40 MG/0.4 ML (LOVENOX) SYR SC SCH (15:58)
[2020-01-19] MEDS: FUROSEMIDE 40 MG/4 ML INJ (LASIX) IVP SCH (17:31)
[2020-01-19] MEDS: FENOFIBRATE, MICRO 67 MG (LOFIBRA) CAPSULE PO SCH (20:52)
[2020-01-19] MEDS: RT-ALBUTEROL SULF 2.5 MG/3 ML PRE-MIX VIAL INH SCH (23:29)
[2020-01-20 06:12] LABS: POTASSIUM 4.1 MMOL/L (3.6-5.0)
[2020-01-20 06:13] LABS: CALCIUM 8.8 MG/DL (8.5-10.1)
[2020-01-20 06:18] LABS: CREATININE SERUM 1.48 MG/DL (0.60-1.30)
[2020-01-20] MEDS: inSUlin ASPART (NovoLOG) 1 UNIT/0.01 ML (CHARGE PER UNIT) SC SCH ×4 (06:19→20:50)
[2020-01-20] MEDS: glyBURIDE 2.5 MG (MICRONASE) TAB PO SCH (06:23)
[2020-01-20] MEDS: FUROSEMIDE 40 MG/4 ML INJ (LASIX) IVP SCH ×2 (06:23→18:06)
[2020-01-20 06:46] VITALS: BP 131/60
[2020-01-20] MEDS: RT-ALBUTEROL SULF 2.5 MG/3 ML PRE-MIX VIAL INH SCH ×2 (06:59→18:37)
[2020-01-20] MEDS: LORATADINE (CLARITIN) 10 MG TAB PO SCH ×3 (08:06→20:49)
[2020-01-20] MEDS: amLODIPine 5 MG (NORVASC) TAB PO SCH (08:06)
[2020-01-20] MEDS: ASPIRIN E.C. 81 MG (ECOTRIN) TAB PO SCH (08:06)
[2020-01-20] MEDS: meTOprolol SUCCINATE 100 MG (TOPROL XL) TAB PO SCH (08:06)
[2020-01-20] MEDS: hydrALAZINE (APRESOLINE) 25 MG TAB PO SCH ×2 (08:06→20:49)
[2020-01-20] MEDS: DOCUSATE SODIUM 100 MG (COLACE) CAP PO SCH ×2 (08:06→20:49)
[2020-01-20] MEDS: SENNA W/DOCUSATE (SENOKOT S) TABLET PO SCH ×2 (08:08→20:50)
[2020-01-20] MEDS: polyethylene glycoL POWDER 17 GM (MIRALAX) PACK PO SCH ×2 (08:34→19:43)
[2020-01-20] MEDS: FLUTICASONE NASAL SPRAY (FLONASE) 16 GM BTL NS SCH (08:34)
--- NOTE | 2020-01-20 09:12 | Physical Therapy Daily Note ---
PT Daily Note-Current Subjective Pt sitting in recliner upon arrival. Pt agrees to PT. Pt again reports feeling much stronger and asking to DC JG. Pain Location: No Pain Reported Mental Status Patient Orientation: Person, Place, Situation Attachments: Oxygen (1L) Transfers SCALE: Activities may be completed with or without assistive devices. 6-Rtxppqktmw-iuvyzqj completes the activity by him/herself with no assistance from a helper. 5-Set-up or Clean-up Assistance-helper sets up or cleans up; patient completes activity. [place] assists only prior to or following the activity. 4-Supervision or Touching Assistance-helper provides verbal cues and/or touching/steadying and/or contact guard assistance as patient completes activity. Assistance may be provided throughout the activity or intermittently. 3-Partial/Moderate Assistance-helper does LESS THAN HALF the effort. [place] lifts, holds or supports trunk or limbs, but provides less than half the effort. 2-Substantial/Maximal Assistance-helper does MORE THAN HALF the effort. [place] lifts or holds trunk or limbs and provides more than half the effort. 1-Feewdlfky-ustlyy does ALL the effort. Patient does none of the effort to complete the activity. Or, the assistance of 2 or more helpers is required for the patient to complete the activity. If activity was not attempted, code reason: 7-Patient Refused. 9-Not Applicable-not attempted and the patient did not perform the activity before the current illness, exacerbation or injury. 10-Not Attempted due to Environmental Limitations-(lack of equipment, weather restraints, etc.). 88-Not Attempted due to Medical Conditions or Safety Concerns. Sit to Stand (QC): 6 Toilet Transfer (QC): 6 Car Transfer (QC): 6 SEE AFTERNOON NOTE FOR REST OF QC SCORES Weight Bearing Right Lower Extremity: Right Full Weight Bearing Left Lower Extremity: Left Full Weight Bearing Gait Training Does the Patient Walk?: Yes Distance: 150' x2 Walk 10 feet (QC): 6 Walk 50 ft with 2 Turns(QC): 6 Walk 150 ft (QC): 6 Walking 10ft/uneven surface-QC: 6 Gait Persons Needed: 1 Gait Assistive Device: FWW Pt admits both with and without FWW. Pt is Mod I with FWW and SBA w/o. ADVENTURE CHALLENGE INSTRUCTOR recommends FWW for extended distance. Pt reports having 4WW at home. Wheelchair Training Does the Pt Use a Wheelchair?: No Stair Training Stair Training: Handrails/: 2 handrails #of Steps: 4 1 Step (curb) (QC): 5 4 Steps (QC): 5 Stairs: Pattern: Step to Balance Picking up an Object (QC): 88 Special Test Comments Pt will use cableman at home for safety. Treatments TF to standing and amb. in hallway. See above for QC scoring. Pt returns to room at end of tx to rest in recliner with all needs met, call light in hand. Assessment Current Status: Good Progress Pt's O2 is monitored as pt would like to return home w/o O2. After amb. at end of tx, O2 is 94% using 1L of O2. OT will try w/o O2 and monitor. PT Short Term Goals Short Term Goals Time Frame: Jan 25, 2020 Roll Left & Right: 5 Sit to lyin Lying to sitting on side of be: 5 Sit to stand: 5 Chair/cnx-zz-whedv transfer: 5 Walk 10 feet: 5 Walk 50 feet with two turns: 5 Walk 150 feet: 5 PT Skilled Nursing Goals Corporate Tax Preparer Goals PT Corporate Tax Preparer Goals Time Frame: Feb 08, 2020 Roll Left & Right (QC): 6 Sit to Lying (QC): 6 Lying-Sitting on Side/Bed(QC): 6 Sit to Stand (QC): 6 Chair/Asf-bz-Xbznr Xfer(QC): 6 Toilet Transfer (QC): 6 Car Transfer (QC): 6 Does the Patient Walk: Yes Walk 10 feet (QC): 6 Walk 50ft with 2 Turns (QC): 6 Walk 150 ft (QC): 6 Walking 10ft on Uneven Surface: 6 1 Step (curb) (QC): 5 4 Steps (QC): 5 12 Steps (QC): 5 Picking up an Object (QC): 5 Does the Pt use WC or Scooter?: No Wheel 50 feet with 2 turns (QC: 9 Wheel 150 feet: 9 PT Plan Problem List Problem List: Activity Tolerance Treatment/Plan Treatment Plan: Continue Plan of Care Treatment Plan: Bed Mobility, Education, Functional Activity Chip, Functional Strength, Group Therapy, Gait, Safety, Therapeutic Exercise, Transfers Treatment Duration: Feb 01, 2020 Frequency: At least 5 of 7 days/Wk (IRF) Estimated Hrs Per Day: 1.5 hours per day Patient and/or Family Agrees t: Yes Safety Risks/Education Patient Education: Correct Positioning, Safety Issues Teaching Recipient: Patient Teaching Methods: Discussion Response to Teaching: Verbalize Understanding Time/GCodes Time In: 800 Time Out: 900 Total Billed Treatment Time: 60 Total Billed Treatment 1, GT (15m) & FA x3 (45m) CHELY MEYERS ADVENTURE CHALLENGE INSTRUCTOR Jan 20, 2020 09:12
--- NOTE | 2020-01-20 09:25 | PM&R Progress Note ---
Subjective HPI/CC On Admission Date Seen by Provider: Jan 20, 2020 Time Seen by Provider: 09:30 Subjective/Events-last exam 01/20/20: Bowels moved yesterday but given laxatives Weaning down O2 Dietary consult for low sodium level will be provided again today IV Lasix still maintain and pt has significantly lost a lot of weight No pain is reported otherwise Will plan for a DC date Pt remains on 2L of oxygen Therapy is going very well today Had three BMs yesterday Lasix 20 Mg IV BID to complete the volume overload resolution Labs are okay Creatinine 1.3 Customer Assistance Associate will talk to her about the low sodium diet Review of Systems General: Fatigue, Malaise Pulmonary: Dyspnea Objective Exam Vital Signs Vital Signs Date Time Temp Pulse Resp B/P (MAP) Pulse Ox O2 Delivery O2 Flow Rate FiO2 01/20/20 20:23 Nasal Cannula 2.00 01/20/20 18:38 95 01/20/20 18:00 36.6 58 18 124/72 (89) 01/19/20 12:14 28 Capillary Refill : Less Than 3 Seconds General Appearance: No Apparent Distress, WD/WN, Chronically ill HEENT: PERRL/EOMI, Normal ENT Inspection, Pharynx Normal Neck: Full Range of Motion, Normal Inspection, Non Tender, Supple, Carotid Bruit Respiratory: Chest Non Tender, Lungs Clear, No Accessory Muscle Use, No Respiratory Distress, Decreased Breath Sounds Cardiovascular: Regular Rate, Rhythm, No Gallop, No JVD, No Murmur, Normal Peripheral Pulses Gastrointestinal: Normal Bowel Sounds, No Organomegaly, No Pulsatile Mass, Non Tender, Soft Back: Normal Inspection, No CVA Tenderness, No Vertebral Tenderness Extremity: Normal Capillary Refill, Normal Inspection, Normal Range of Motion, Non Tender, No Calf Tenderness, Pedal Edema Neurologic/Psychiatric: Alert, Oriented x3, No Motor/Sensory Deficits, Normal Mood/Affect, performance analyst II-XII Norm as Tested, Motor Weakness (generalized lower extremities during ambulation) Skin: Normal Color, Warm/Dry Lymphatic: No Adenopathy Results/Procedures Lab Laboratory Tests 01/20/20 05:53 Patient resulted labs reviewed. FIM Transfers Therapy Code Descriptions/Definitions Functional [place] Measure: 0=Not Assessed/NA 4=Minimal Assistance 1=Total Assistance 5=Supervision or Setup 2=Maximal Assistance 6=Modified [place] 3=Moderate Assistance 7=Complete IndependenceSCALE: Activities may be completed with or without assistive devices. 4-Lndditmvwy-vhportb completes the activity by him/herself with no assistance from a helper. 5-Set-up or Clean-up Assistance-helper sets up or cleans up; patient completes activity. [place] assists only prior to or following the activity. 4-Supervision or Touching Assistance-helper provides verbal cues and/or touching/steadying and/or contact guard assistance as patient completes activity. Assistance may be provided throughout the activity or intermittently. 3-Partial/Moderate Assistance-helper does LESS THAN HALF the effort. [place] lifts, holds or supports trunk or limbs, but provides less than half the effort. 2-Substantial/Maximal Assistance-helper does MORE THAN HALF the effort. [place] lifts or holds trunk or limbs and provides more than half the effort. 5-Ltvhtcrcm-insucb does ALL the effort. Patient does none of the effort to complete the activity. Or, the assistance of 2 or more helpers is required for the patient to complete the activity. If activity was not attempted, code reason: 7-Patient Refused. 9-Not Applicable-not attempted and the patient did not perform the activity before the current illness, exacerbation or injury. 10-Not Attempted due to Environmental Limitations-(lack of equipment, weather restraints, etc.). 88-Not Attempted due to Medical Conditions or Safety Concerns. Roll Left to Right (QC): 4 Sit to Lying (QC): 3 Sit to Stand (QC): 6 Chair/Ron-jy-Yriih Xfer(QC): 4 Car Transfer (QC): 6 Gait Training Does the Patient Walk?: Yes Distance: 150' x2 Walk 10 feet (QC): 6 Walk 50 ft with 2 Turns(QC): 6 Walk 150 ft (QC): 6 Walking 10ft/uneven surface-QC: 6 Gait Persons Needed: 1 Gait Assistive Device: FWW Wheelchair Training Does the Pt Use a Wheelchair?: No Wheel 50 ft with 2 turns (QC): 9 Wheel 150 ft (QC): 9 Stair Training #of Steps: 1 1 Step (curb) (QC): 3 4 Steps (QC): 88 12 Steps (QC): 88 Balance Picking up an Object (QC): 4 ADL-Treatment Eating (QC): 6 Oral Hygiene (QC): 5 Shower/Bathe Self (QC): 4 Upper Body Dressing (QC): 5 Lower Body Dressing (QC): 5 On/Off Footwear (QC): 5 Toileting Hygiene (QC): 4 Toilet Transfer (QC): 4 Assessment/Plan Assessment and Plan Assess & Plan/Chief Complaint Assessment: CHF myopathy CRI DM HTN CAD CABG hx HLP Hypoxia h/o PAF w/RVR last admit Anemia Hematochezia hx Plan: Monitor labs Lasix IRF protocol O2 wean 01/19/20: Wean O2 Monitor BP Lasix IV BID 01/20/20: CHF treatment DC Saturday (1) Acute on chronic heart failure Status: Acute (2) BiPAP (biphasic positive airway pressure) dependence (3) Hypertension (4) Hyperlipidemia (5) CAD (coronary artery disease) (6) Atrial fibrillation with rapid ventricular response (7) Respiratory distress (8) Diabetes (9) Hx of CABG KEILA MARTINEZ DO Jan 20, 2020 09:25
--- NOTE | 2020-01-20 09:50 | NUR ---
DR. MARTINEZ ORDERED PEPCID LIQUID, BUT PHARMACY STATED THEY DID NOT HAVE THE LIQUID PEPCID AND THIS NURSE WOULD HAVE TO ORDER THE PEPCID PILL AND CRUSHED IT TO PUT INTO G-TUBE.
--- NOTE | 2020-01-20 10:48 | Cardiology Progress Note ---
Subjective Date Seen by Provider: Jan 20, 2020 Time Seen by Provider: 10:48 Subjective/Events-last exam Patient is sitting up in chair, no new complaints. Denies any chest pain. Still having some dypsnea with exertion. Review of Systems General: No Chills, No Night Sweats, No Fatigue, No Malaise, No Appetite, No Other Objective-Cardiology Exam Last Set of Vital Signs Vital Signs 01/19/20 01/20/20 01/20/20 01/20/20 12:14 06:46 06:59 09:00 Temp 36.5 Pulse 62 Resp 16 B/P (MAP) 131/60 (83) Pulse Ox 96 O2 Delivery Nasal Cannula O2 Flow Rate 1.00 FiO2 28 Capillary Refill : Less Than 3 Seconds I&O Intake and Output 01/20/20 00:00 Intake Total 1150 ml Balance 1150 ml Intake Oral 1150 ml # Voids 6 # Bowel Movements 3 General: Alert, Oriented X3, Cooperative HEENT: Atraumatic, PERRLA Neck: Supple, No JVD, No Thyromegaly Lungs: Clear to Auscultation, Normal Air Movement Heart: Regular Rate, Normal S1, Normal S2, No Murmurs Abdomen: Normal Bowel Sounds, Soft, No Tenderness, No Hepatosplenomegaly, No Masses Extremities: No Clubbing, No Cyanosis, Normal Pulses, No Tenderness/Swelling, Other (+1 edema BLE) Skin: No Rashes, No Breakdown, No Significant Lesion Results Lab Laboratory Tests 01/20/20 05:53 A/P-Cardiology Admission Diagnosis CHF, diastolic dysfunction CAD HTN HLP Assessment/Plan Status post acute respiratory failure, responded to diuretics, feeling better at this time. Acute diastolic congestive heart failure - clinically compensated, Echocardiogram of September 20, 2019 shows LVEF 55-65%. LA mod dilated. Mild to mod TR. PASP approx 30 mmHg. Grade 1 diastolic dysfunction. Patient had repeat echo done, results pending Recent Non-STEMI in September 2019, Coronary artery disease history of CABG in 2010 using COLES to LAD, vein graft to the right coronary artery and vein graft to the circumflex artery, no recent cardiac workup. Patient refused coronary angiography. Previous Paroxysmal atrial fibrillation with RVR, patient refused oral anticoagulation. She understands the risk of stroke. History of chest pain in the past, no recent episodes of chest pain Hypertension, controlled, conitnue to monitor. Hyperlipidemia - maintained on statin, continue to monitor as outpatient Diabetes mellitus, followed and managed by primary care physician Patient was seen and evaluated with Ethel, examination performed, management plan was discussed, agree with the current scribed note, I made few changes to the note using Italic font Patient was seen at bedside, sitting comfortably, no new complaint. Normal LV size and function, mod to moderate tricuspid regurgitation with pulmonary artery pressure of 30 mmHg Patient has refused oral anticoagulation the past. Continue on current medication monitor Clinical Quality Measures DVT/VTE Risk/Contraindication: Risk Factor Score Per Nursin RFS Level Per Nursing on Admit: 2=Moderate ETHEL BARNES Jan 20, 2020 10:48 am ANTHONY NOVOA MD Jan 20, 2020 2:36 pm
--- NOTE | 2020-01-20 11:09 | Occupational Ther Daily Note ---
OT Current Status-Daily Note Subjective No pain reported. Appearance Pt. is up in chair. She is alert and oriented. Agrees to work with OT. Mental Status/Objective Patient Orientation: Person, Place, Time, Situation ADL-Treatment Therapy Code Descriptions/Definitions Functional [place] Measure: 0=Not Assessed/NA 4=Minimal Assistance 1=Total Assistance 5=Supervision or Setup 2=Maximal Assistance 6=Modified [place] 3=Moderate Assistance 7=Complete IndependenceSCALE: Activities may be completed with or without assistive devices. 9-Gjrkdzhfey-ehilgut completes the activity by him/herself with no assistance from a helper. 5-Set-up or Clean-up Assistance-helper sets up or cleans up; patient completes activity. [place] assists only prior to or following the activity. 4-Supervision or Touching Assistance-helper provides verbal cues and/or touching/steadying and/or contact guard assistance as patient completes activity. Assistance may be provided throughout the activity or intermittently. 3-Partial/Moderate Assistance-helper does LESS THAN HALF the effort. [place] lifts, holds or supports trunk or limbs, but provides less than half the effort. 2-Substantial/Maximal Assistance-helper does MORE THAN HALF the effort. [place] lifts or holds trunk or limbs and provides more than half the effort. 6-Ultfqsxoh-ukpljr does ALL the effort. Patient does none of the effort to complete the activity. Or, the assistance of 2 or more helpers is required for the patient to complete the activity. If activity was not attempted, code reason: 7-Patient Refused. 9-Not Applicable-not attempted and the patient did not perform the activity before the current illness, exacerbation or injury. 10-Not Attempted due to Environmental Limitations-(lack of equipment, weather restraints, etc.). 88-Not Attempted due to Medical Conditions or Safety Concerns. Eating (QC): 6 Oral Hygiene (QC): 6 Shower/Bathe Self (QC): 5 Upper Body Dressing (QC): 6 Lower Body Dressing (QC): 6 On/Off Footwear: 6 Toileting Hygiene (QC): 6 Toilet Transfer (QC): 6 Other Treatment Pt. declines showering, as she took one yesterday and states, "I am not that dirty." Pt. does agree to sponge bathe at sink. She is able to ambulate with walker to closet, retrieve clothing, and then ambulate to bathroom and sit at sink. Pt. is able to perform all tasks independently, except bath which was set up for her. Pt. has indicated that her goals are to be able to ambulate without her walker, and to be able to go home without oxygen. PT. ambulated with pt. with 1 L 02 on, and took sats after. She was at 94%, so OT doffed oxygen to monitor how she did with activity. After bathing without oxygen on, OT took sats and they were at 94%. OT and pt. ambulated with walker and independently to therapy gym. OT took sats again and they were at 83%. They were able to slowly climb, but OT did re-apply her oxygen at 1 L. Sats returned to 94%. Pt. completed dumbbell exercises x 6 exercises x 2 lbs. x 15 reps each in all planes for continued strengthening. Tolerated this well. Pt. then donned 1 lb. wrist weights and completed fine motor tasks and coordination activities with alternating pattern to increase UE strength. Tolerated well. Pt. ambulated back to room with walker and independence. All needs met up in chair. Education OT Patient Education: Correct positioning, Exercise program, Modified ADL techniques, Progress toward Goal/Update tx plan, Purpose of tx/functional activities, Reviewed precautions, Rehab process, Transfer techniques Teaching Recipient: Patient Teaching Methods: Demonstration, Discussion Response to Teaching: Verbalize Understanding, Return Demonstration OT Powerhouse Operator Goals Custodial Goals Time Frame: Feb 01, 2020 Eating (QC): 6 Oral Hygiene (QC): 6 Toileting Hygiene (QC): 6 Shower/Bathe Self (QC): 4 Upper Body Dressing (QC): 6 Lower Body Dressing (QC): 6 On/Off Footwear (QC): 6 Additional Goals: 1-Demonstrate ADL Tasks, 2-Verbalize Understanding, 3- ImproveStrength/Chip 1=Demonstrate adherence to instructed precautions during ADL tasks. 2=Patient will verbalize/demonstrate understanding of assistive devices/modifications for ADL. 3=Patient will improve strength/tolerance for activity to enable patient to perform ADL's. OT Education/Plan Problem List/Assessment Assessment: Decreased Activ Tolerance Discharge Recommendations Plan/Recommendations: Continue POC Therapy Discharge Recommendati: Home & Family Treatment Plan/Plan of Care Treatment,Training & Education: Yes Patient would benefit from OT for education, treatment and training to promote independence in ADL's, mobility, safety and/or upper extremity function for ADL's. Plan of Care: ADL Retraining, Functional Mobility, Group Exercise/Act as Ind, UE Funct Exercise/Act Treatment Duration: Feb 01, 2020 Frequency: At least 5 of 7 days/Wk (IRF) Estimated Hrs Per Day: 1.5 hours per day Agreement: Yes Rehab Potential: Good Time/GCodes Start Time: 09:10 Stop Time: 10:40 Total Time Billed (hr/min): 90 Billed Treatment Time 1, ADL x 45minutes, Ex x 15minutes, FA x 30minutes MADELIN PUTNAM OT Jan 20, 2020 11:09
--- NOTE | 2020-01-20 14:59 | Physical Therapy Daily Note ---
PT Daily Note-Current Subjective Pt sitting in recliner upon arrival. Pt agrees to PT. Pain Location: No Pain Reported Mental Status Patient Orientation: Person, Place, Time, Situation Attachments: Oxygen (1L) Transfers SCALE: Activities may be completed with or without assistive devices. 5-Rfqqwphavm-iwtwwjy completes the activity by him/herself with no assistance from a helper. 5-Set-up or Clean-up Assistance-helper sets up or cleans up; patient completes activity. [place] assists only prior to or following the activity. 4-Supervision or Touching Assistance-helper provides verbal cues and/or touching/steadying and/or contact guard assistance as patient completes activity. Assistance may be provided throughout the activity or intermittently. 3-Partial/Moderate Assistance-helper does LESS THAN HALF the effort. [place] lifts, holds or supports trunk or limbs, but provides less than half the effort. 2-Substantial/Maximal Assistance-helper does MORE THAN HALF the effort. [place] lifts or holds trunk or limbs and provides more than half the effort. 6-Zjbfdqdnr-udnxlw does ALL the effort. Patient does none of the effort to complete the activity. Or, the assistance of 2 or more helpers is required for the patient to complete the activity. If activity was not attempted, code reason: 7-Patient Refused. 9-Not Applicable-not attempted and the patient did not perform the activity before the current illness, exacerbation or injury. 10-Not Attempted due to Environmental Limitations-(lack of equipment, weather restraints, etc.). 88-Not Attempted due to Medical Conditions or Safety Concerns. Roll Left & Right (QC): 6 Sit to Lying (QC): 6 Lying to Sitting/Side of Bed(Q: 6 Sit to Stand (QC): 6 Chair/Jtr-ak-Jmfrm Xfer(QC): 6 Toilet Transfer (QC): 6 Pt uses bed railing for bed mobility but will be sleeping in recliner at home. Weight Bearing Right Lower Extremity: Right Full Weight Bearing Left Lower Extremity: Left Full Weight Bearing Wheelchair Training Does the Pt Use a Wheelchair?: No Treatments TF to standing and uses BR. Pt returns to recliner to rest. Pt asks about anticipated upcoming DC and what that entails. Pt resting with all needs met, call light in hand. Assessment Current Status: Good Progress Pt chiki. tx well. PT Short Term Goals Short Term Goals Time Frame: Jan 25, 2020 Roll Left & Right: 5 Sit to lyin Lying to sitting on side of be: 5 Sit to stand: 5 Chair/ocq-yu-gwtun transfer: 5 Walk 10 feet: 5 Walk 50 feet with two turns: 5 Walk 150 feet: 5 PT Intermediate Goals Intermediate Goals PT Activity Specialist Goals Time Frame: Feb 08, 2020 Roll Left & Right (QC): 6 Sit to Lying (QC): 6 Lying-Sitting on Side/Bed(QC): 6 Sit to Stand (QC): 6 Chair/Gto-cq-Vjhwu Xfer(QC): 6 Toilet Transfer (QC): 6 Car Transfer (QC): 6 Does the Patient Walk: Yes Walk 10 feet (QC): 6 Walk 50ft with 2 Turns (QC): 6 Walk 150 ft (QC): 6 Walking 10ft on Uneven Surface: 6 1 Step (curb) (QC): 5 4 Steps (QC): 5 12 Steps (QC): 5 Picking up an Object (QC): 5 Does the Pt use WC or Scooter?: No Wheel 50 feet with 2 turns (QC: 9 Wheel 150 feet: 9 PT Plan Problem List Problem List: Activity Tolerance Treatment/Plan Treatment Plan: Continue Plan of Care Treatment Plan: Bed Mobility, Education, Functional Activity Chip, Functional Strength, Group Therapy, Gait, Safety, Therapeutic Exercise, Transfers Treatment Duration: Feb 01, 2020 Frequency: At least 5 of 7 days/Wk (IRF) Estimated Hrs Per Day: 1.5 hours per day Patient and/or Family Agrees t: Yes Time/GCodes Time In: 1400 Time Out: 1430 Total Billed Treatment Time: 30 Total Billed Treatment 1, FA x2 (30m) CHELY MEYERS DOLLY DRIVER Jan 20, 2020 14:59
--- NOTE | 2020-01-20 16:14 | NUR ---
provided prayer and Communion.
[2020-01-20 18:00] VITALS: BP 124/72
[2020-01-20] MEDS: ENOXAPARIN 40 MG/0.4 ML (LOVENOX) SYR SC SCH (18:06)
[2020-01-20] MEDS: FENOFIBRATE, MICRO 67 MG (LOFIBRA) CAPSULE PO SCH (20:49)
[2020-01-21] MEDS: inSUlin ASPART (NovoLOG) 1 UNIT/0.01 ML (CHARGE PER UNIT) SC SCH ×4 (05:39→20:58)
[2020-01-21 05:42] VITALS: BP 147/63
[2020-01-21] MEDS: FUROSEMIDE 40 MG/4 ML INJ (LASIX) IVP SCH (06:24)
[2020-01-21] MEDS: glyBURIDE 2.5 MG (MICRONASE) TAB PO SCH (06:24)
[2020-01-21 08:00] VITALS: BP 126/56
[2020-01-21] MEDS: RT-ALBUTEROL SULF 2.5 MG/3 ML PRE-MIX VIAL INH SCH ×2 (08:21→21:03)
[2020-01-21] MEDS: LORATADINE (CLARITIN) 10 MG TAB PO SCH ×3 (08:50→20:48)
[2020-01-21] MEDS: hydrALAZINE (APRESOLINE) 25 MG TAB PO SCH ×2 (08:53→20:48)
[2020-01-21] MEDS: amLODIPine 5 MG (NORVASC) TAB PO SCH (08:53)
[2020-01-21] MEDS: meTOprolol SUCCINATE 100 MG (TOPROL XL) TAB PO SCH (08:53)
[2020-01-21] MEDS: DOCUSATE SODIUM 100 MG (COLACE) CAP PO SCH ×2 (08:53→20:47)
[2020-01-21] MEDS: ASPIRIN E.C. 81 MG (ECOTRIN) TAB PO SCH (08:53)
[2020-01-21] MEDS: SENNA W/DOCUSATE (SENOKOT S) TABLET PO SCH ×2 (08:54→20:58)
[2020-01-21] MEDS: polyethylene glycoL POWDER 17 GM (MIRALAX) PACK PO SCH ×2 (08:54→20:58)
[2020-01-21] MEDS: FLUTICASONE NASAL SPRAY (FLONASE) 16 GM BTL NS SCH (08:54)
--- NOTE | 2020-01-21 10:24 | PM&R Progress Note ---
Subjective HPI/CC On Admission Date Seen by Provider: Jan 21, 2020 Time Seen by Provider: 10:30 Subjective/Events-last exam 01/29/20: DC planned for tomorrow O2 study will be completed Lasix IV maintained [place] [facility] [place] diet 01/20/20: Bowels moved yesterday but given laxatives Weaning down O2 Dietary consult for low sodium level will be provided again today IV Lasix still maintain and pt has significantly lost a lot of weight No pain is reported otherwise Will plan for a DC date Pt remains on 2L of oxygen Therapy is going very well today Had three BMs yesterday Lasix 20 Mg IV BID to complete the volume overload resolution Labs are okay Creatinine 1.3 Corporate Development Officer will talk to her about the low sodium diet Review of Systems Pulmonary: Dyspnea Objective Exam Vital Signs Vital Signs Date Time Temp Pulse Resp B/P (MAP) Pulse Ox O2 Delivery O2 Flow Rate FiO2 01/21/20 21:06 94 Nasal Cannula 1.00 01/21/20 20:59 65 115/56 (75) 01/21/20 17:38 37.0 18 01/19/20 12:14 28 Capillary Refill : Less Than 3 Seconds General Appearance: No Apparent Distress, WD/WN, Chronically ill HEENT: PERRL/EOMI, Normal ENT Inspection, Pharynx Normal Neck: Full Range of Motion, Normal Inspection, Non Tender, Supple, Carotid Bruit Respiratory: Chest Non Tender, Lungs Clear, No Accessory Muscle Use, No Respiratory Distress, Decreased Breath Sounds Cardiovascular: Regular Rate, Rhythm, No Gallop, No JVD, No Murmur, Normal Peripheral Pulses Gastrointestinal: Normal Bowel Sounds, No Organomegaly, No Pulsatile Mass, Non Tender, Soft Back: Normal Inspection, No CVA Tenderness, No Vertebral Tenderness Extremity: Normal Capillary Refill, Normal Inspection, Normal Range of Motion, Non Tender, No Calf Tenderness, Pedal Edema Neurologic/Psychiatric: Alert, Oriented x3, No Motor/Sensory Deficits, Normal Mood/Affect, corporate scheduler II-XII Norm as Tested, Motor Weakness (generalized lower extremities during ambulation) Skin: Normal Color, Warm/Dry Lymphatic: No Adenopathy Results/Procedures Lab Patient resulted labs reviewed. FIM Transfers Therapy Code Descriptions/Definitions Functional [place] Measure: 0=Not Assessed/NA 4=Minimal Assistance 1=Total Assistance 5=Supervision or Setup 2=Maximal Assistance 6=Modified [place] 3=Moderate Assistance 7=Complete IndependenceSCALE: Activities may be completed with or without assistive devices. 7-Pmerhvoxaq-xivlkvv completes the activity by him/herself with no assistance from a helper. 5-Set-up or Clean-up Assistance-helper sets up or cleans up; patient completes activity. [place] assists only prior to or following the activity. 4-Supervision or Touching Assistance-helper provides verbal cues and/or touching/steadying and/or contact guard assistance as patient completes activity. Assistance may be provided throughout the activity or intermittently. 3-Partial/Moderate Assistance-helper does LESS THAN HALF the effort. [place] lifts, holds or supports trunk or limbs, but provides less than half the effort. 2-Substantial/Maximal Assistance-helper does MORE THAN HALF the effort. [place] lifts or holds trunk or limbs and provides more than half the effort. 7-Mmaoecwfc-vtclrt does ALL the effort. Patient does none of the effort to complete the activity. Or, the assistance of 2 or more helpers is required for the patient to complete the activity. If activity was not attempted, code reason: 7-Patient Refused. 9-Not Applicable-not attempted and the patient did not perform the activity before the current illness, exacerbation or injury. 10-Not Attempted due to Environmental Limitations-(lack of equipment, weather restraints, etc.). 88-Not Attempted due to Medical Conditions or Safety Concerns. Roll Left to Right (QC): 6 Sit to Lying (QC): 6 Sit to Stand (QC): 6 Chair/Pte-zn-Ugrhy Xfer(QC): 6 Car Transfer (QC): 6 Gait Training Does the Patient Walk?: Yes Distance: 150' x2 Walk 10 feet (QC): 6 Walk 50 ft with 2 Turns(QC): 6 Walk 150 ft (QC): 6 Walking 10ft/uneven surface-QC: 6 Gait Persons Needed: 1 Gait Assistive Device: FWW Wheelchair Training Does the Pt Use a Wheelchair?: No Wheel 50 ft with 2 turns (QC): 9 Wheel 150 ft (QC): 9 Stair Training Stair Training: Handrails/: 2 handrails #of Steps: 4 1 Step (curb) (QC): 5 4 Steps (QC): 5 12 Steps (QC): 88 Stairs: Pattern: Step to Balance Picking up an Object (QC): 88 ADL-Treatment Eating (QC): 6 Oral Hygiene (QC): 6 Shower/Bathe Self (QC): 5 Upper Body Dressing (QC): 6 Lower Body Dressing (QC): 6 On/Off Footwear (QC): 6 Toileting Hygiene (QC): 6 Toilet Transfer (QC): 6 Assessment/Plan Assessment and Plan Assess & Plan/Chief Complaint Assessment: CHF myopathy CRI DM HTN CAD CABG hx HLP Hypoxia h/o PAF w/RVR last admit Anemia Hematochezia hx Plan: Monitor labs Lasix IRF protocol O2 wean 01/19/20: Wean O2 Monitor BP Lasix IV BID 01/20/20: CHF treatment DC Saturday01/21/20: DC tomorrow O2 evaluation to be completed (1) Acute on chronic heart failure Status: Acute (2) BiPAP (biphasic positive airway pressure) dependence (3) Hypertension (4) Hyperlipidemia (5) CAD (coronary artery disease) (6) Atrial fibrillation with rapid ventricular response (7) Respiratory distress (8) Diabetes (9) Hx of CABG KEILA MARTINEZ DO Jan 21, 2020 10:24
--- NOTE | 2020-01-21 11:10 | D/C HH Face to Face Order ---
D/C Face to Face Orders Reconcile Patient Problems Problems Reviewed?: Yes Instructions for Patient [facility] Home Health Patient Instructions/FollowUp: Dr Yung next week appt Physician to follow Patient: Aga Discharge Diet for Home: ADA Diet, Low Sodium Diet Patient Problems: CHF Patient Data-Allergies,Ht & Wt Patient Allergies: Coded Allergies: Penicillins (Unverified Allergy, Mild, 12/18/08) Home Health Need/Face to Face Date of Face to Face: Jan 21, 2020 Clinical Findings: Generalized weakness and fatigue, Muscle weakness, Shortness of breath, Unsteady gait I have seen Pt hepn-ov-narh: Yes Discharged To: Home Diagnosis/Conditions: CHF Patient is Homebound due to: [place] fall risk due to instabilty, Muscle weakness, Shortness of breath/distress Homebound Status Due to the above stated illness, injury or surgical procedure (medical condition or diagnosis) and associated clinical findings, the patient is homebound because of his/her inability to leave home except with aid of a supportive device and/or person AND leaving the home requires a considerable and taxing effort or is medically contraindicated. Pt req the following assistanc: Walker Home Health Nursing Orders Home Health Services Order: Nursing Services (focus on low sodium diet), Physical Therapy-Evaluate & Treat Certify Stmt I certify that this patient is under my care and that I, a nurse practitioner or a physician; a assistant reading teacher working with me, had a face to face encounter that - meets the physician face to face encounter requirements with this patient as dated. KEILA YUNG DO Jan 21, 2020 11:10
--- NOTE | 2020-01-21 12:18 | Physical Therapy Daily Note ---
PT Daily Note-Current Subjective Pt sitting in recliner upon arrival. Pt agrees to PT. Pain Location: No Pain Reported Mental Status Patient Orientation: Person, Place, Situation Attachments: Oxygen (1L) Transfers SCALE: Activities may be completed with or without assistive devices. 5-Lgdqbkjlho-yadxtds completes the activity by him/herself with no assistance from a helper. 5-Set-up or Clean-up Assistance-helper sets up or cleans up; patient completes activity. [place] assists only prior to or following the activity. 4-Supervision or Touching Assistance-helper provides verbal cues and/or touching/steadying and/or contact guard assistance as patient completes activity. Assistance may be provided throughout the activity or intermittently. 3-Partial/Moderate Assistance-helper does LESS THAN HALF the effort. [place] lifts, holds or supports trunk or limbs, but provides less than half the effort. 2-Substantial/Maximal Assistance-helper does MORE THAN HALF the effort. [place] lifts or holds trunk or limbs and provides more than half the effort. 3-Wzggxzvze-tqvqgu does ALL the effort. Patient does none of the effort to complete the activity. Or, the assistance of 2 or more helpers is required for the patient to complete the activity. If activity was not attempted, code reason: 7-Patient Refused. 9-Not Applicable-not attempted and the patient did not perform the activity before the current illness, exacerbation or injury. 10-Not Attempted due to Environmental Limitations-(lack of equipment, weather restraints, etc.). 88-Not Attempted due to Medical Conditions or Safety Concerns. Sit to Stand (QC): 6 Toilet Transfer (QC): 6 Weight Bearing Right Lower Extremity: Right Full Weight Bearing Left Lower Extremity: Left Full Weight Bearing Gait Training Does the Patient Walk?: Yes Distance: 150' x2 Walk 10 feet (QC): 6 Walk 50 ft with 2 Turns(QC): 6 Walk 150 ft (QC): 6 Gait Persons Needed: 1 Gait Assistive Device: FWW Wheelchair Training Does the Pt Use a Wheelchair?: No Stair Training Stair Training: Handrails/: 1 handrail #of Steps: 12 1 Step (curb) (QC): 5 4 Steps (QC): 5 12 Steps (QC): 5 Stairs: Pattern: Step to Balance Picking up an Object (QC): 6 Special Test Comments Using fats and oils loader for safety. Treatments TF to standing and uses BR. Amb in hallway before taking RB. Completes Seated EX then 3 sets of 4 steps. Takes RB before amb. in hallway. Returns to room to rest in recliner with all needs met, call light in hand. Assessment Current Status: Good Progress Pt chiki. tx well. PT Short Term Goals Short Term Goals Time Frame: Jan 25, 2020 Roll Left & Right: 5 Sit to lyin Lying to sitting on side of be: 5 Sit to stand: 5 Chair/nit-lk-ougfr transfer: 5 Walk 10 feet: 5 Walk 50 feet with two turns: 5 Walk 150 feet: 5 PT Professor Of Counseling Goals Professor Of Counseling Goals PT Detention Goals Time Frame: Feb 08, 2020 Roll Left & Right (QC): 6 Sit to Lying (QC): 6 Lying-Sitting on Side/Bed(QC): 6 Sit to Stand (QC): 6 Chair/Cyo-ss-Ffrqb Xfer(QC): 6 Toilet Transfer (QC): 6 Car Transfer (QC): 6 Does the Patient Walk: Yes Walk 10 feet (QC): 6 Walk 50ft with 2 Turns (QC): 6 Walk 150 ft (QC): 6 Walking 10ft on Uneven Surface: 6 1 Step (curb) (QC): 5 4 Steps (QC): 5 12 Steps (QC): 5 Picking up an Object (QC): 5 Does the Pt use WC or Scooter?: No Wheel 50 feet with 2 turns (QC: 9 Wheel 150 feet: 9 PT Plan Problem List Problem List: Activity Tolerance Treatment/Plan Treatment Plan: Continue Plan of Care Treatment Plan: Bed Mobility, Education, Functional Activity Chip, Functional Strength, Group Therapy, Gait, Safety, Therapeutic Exercise, Transfers Treatment Duration: Feb 01, 2020 Frequency: At least 5 of 7 days/Wk (IRF) Estimated Hrs Per Day: 1.5 hours per day Patient and/or Family Agrees t: Yes Safety Risks/Education Patient Education: Steps, Correct Positioning, Safety Issues Teaching Recipient: Patient Teaching Methods: Discussion Response to Teaching: Verbalize Understanding Time/GCodes Time In: 1100 Time Out: 1200 Total Billed Treatment Time: 60 Total Billed Treatment 1, GT (20m) & FA x3 (40m) CHELY MEYERS SUPERVISOR PUMPING STATION Jan 21, 2020 12:18
--- NOTE | 2020-01-21 13:19 | Occupational Ther Daily Note ---
OT Current Status-Daily Note Subjective No pain reported. Appearance Pt. up in chair. Agrees to work with OT. Mental Status/Objective Patient Orientation: Person, Place, Time, Situation ADL-Treatment Therapy Code Descriptions/Definitions Functional [place] Measure: 0=Not Assessed/NA 4=Minimal Assistance 1=Total Assistance 5=Supervision or Setup 2=Maximal Assistance 6=Modified [place] 3=Moderate Assistance 7=Complete IndependenceSCALE: Activities may be completed with or without assistive devices. 1-Jkdrgiqykl-riailcf completes the activity by him/herself with no assistance from a helper. 5-Set-up or Clean-up Assistance-helper sets up or cleans up; patient completes activity. [place] assists only prior to or following the activity. 4-Supervision or Touching Assistance-helper provides verbal cues and/or touching/steadying and/or contact guard assistance as patient completes activity. Assistance may be provided throughout the activity or intermittently. 3-Partial/Moderate Assistance-helper does LESS THAN HALF the effort. [place] lifts, holds or supports trunk or limbs, but provides less than half the effort. 2-Substantial/Maximal Assistance-helper does MORE THAN HALF the effort. [place] lifts or holds trunk or limbs and provides more than half the effort. 3-Txzodpmwm-ffvwbo does ALL the effort. Patient does none of the effort to complete the activity. Or, the assistance of 2 or more helpers is required for the patient to complete the activity. If activity was not attempted, code reason: 7-Patient Refused. 9-Not Applicable-not attempted and the patient did not perform the activity before the current illness, exacerbation or injury. 10-Not Attempted due to Environmental Limitations-(lack of equipment, weather restraints, etc.). 88-Not Attempted due to Medical Conditions or Safety Concerns. Eating (QC): 6 Oral Hygiene (QC): 6 Shower/Bathe Self (QC): 5 Upper Body Dressing (QC): 6 Lower Body Dressing (QC): 6 On/Off Footwear: 6 Toileting Hygiene (QC): 6 Toilet Transfer (QC): 6 Other Treatment Pt. is agreeable to work with OT. She is up in chair and agrees to shower. Pt. is able to complete this task after set up, and all other ADL tasks independently. After ADLs, she ambulates to therapy gym with walker with independence, and completes 15 minutes on arm bike at min resistance. Tolerated this well. Pt. ambulated back to room after with walker. All needs met up in chair. Education OT Patient Education: Correct positioning, Exercise program, Modified ADL techniques, Progress toward Goal/Update tx plan, Purpose of tx/functional activities, Reviewed precautions, Rehab process, Transfer techniques Teaching Recipient: Patient Teaching Methods: Demonstration, Discussion Response to Teaching: Verbalize Understanding, Return Demonstration OT Station Installer And Repairer Goals Station Installer And Repairer Goals Time Frame: Feb 01, 2020 Eating (QC): 6 Oral Hygiene (QC): 6 Toileting Hygiene (QC): 6 Shower/Bathe Self (QC): 4 Upper Body Dressing (QC): 6 Lower Body Dressing (QC): 6 On/Off Footwear (QC): 6 Additional Goals: 1-Demonstrate ADL Tasks, 2-Verbalize Understanding, 3-ImproveStrength/Chip 1=Demonstrate adherence to instructed precautions during ADL tasks. 2=Patient will verbalize/demonstrate understanding of assistive devices/modifications for ADL. 3=Patient will improve strength/tolerance for activity to enable patient to perform ADL's. OT Education/Plan Problem List/Assessment Assessment: Decreased Activ Tolerance Discharge Recommendations Plan/Recommendations: Continue POC Therapy Discharge Recommendati: Home & Family Treatment Plan/Plan of Care Treatment,Training & Education: Yes Patient would benefit from OT for education, treatment and training to promote independence in ADL's, mobility, safety and/or upper extremity function for ADL's. Plan of Care: ADL Retraining, Functional Mobility, Group Exercise/Act as Ind, UE Funct Exercise/Act Treatment Duration: Feb 01, 2020 Frequency: At least 5 of 7 days/Wk (IRF) Estimated Hrs Per Day: 1.5 hours per day Agreement: Yes Rehab Potential: Good Time/GCodes Start Time: 09:30 Stop Time: 10:30 Total Time Billed (hr/min): 60 Billed Treatment Time 1, ADL x 30minutes, Ex x 15minutes, FA x 15minutes MADELIN PUTNAM OT Jan 21, 2020 13:19
--- NOTE | 2020-01-21 13:28 | Occupational Ther Daily Note ---
OT Current Status-Daily Note Subjective Pt alert, sitting in recliner. Pt agrees to therapy. No c/o pain. Mental Status/Objective Patient Orientation: Person, Place, Time, Situation Attachments: IV, Oxygen (1L) ADL-Treatment Therapy Code Descriptions/Definitions Functional [place] Measure: 0=Not Assessed/NA 4=Minimal Assistance 1=Total Assistance 5=Supervision or Setup 2=Maximal Assistance 6=Modified [place] 3=Moderate Assistance 7=Complete IndependenceSCALE: Activities may be completed with or without assistive devices. 5-Zejwayigdv-meocyai completes the activity by him/herself with no assistance from a helper. 5-Set-up or Clean-up Assistance-helper sets up or cleans up; patient completes activity. [place] assists only prior to or following the activity. 4-Supervision or Touching Assistance-helper provides verbal cues and/or touching/steadying and/or contact guard assistance as patient completes activity. Assistance may be provided throughout the activity or intermittently. 3-Partial/Moderate Assistance-helper does LESS THAN HALF the effort. [place] lifts, holds or supports trunk or limbs, but provides less than half the effort. 2-Substantial/Maximal Assistance-helper does MORE THAN HALF the effort. [place] lifts or holds trunk or limbs and provides more than half the effort. 7-Ipnndlhsx-dhiobn does ALL the effort. Patient does none of the effort to complete the activity. Or, the assistance of 2 or more helpers is required for the patient to complete the activity. If activity was not attempted, code reason: 7-Patient Refused. 9-Not Applicable-not attempted and the patient did not perform the activity before the current illness, exacerbation or injury. 10-Not Attempted due to Environmental Limitations-(lack of equipment, weather restraints, etc.). 88-Not Attempted due to Medical Conditions or Safety Concerns. Toileting Hygiene (QC): 6 (Pt able to complete independently) Toilet Transfer (QC): 6 (No AD to ambulate and transfer to toilet, indepedently.) Other Treatment Pt ambulated with FWW to therapy gym. Completed UE dowel shira exercise 4 sets of 10 reps. Pt then ambulated back to room to work on manipulating oxygen tubing while ambulating. Pt demonstrated understanding with task. No LOB or getting tangle in tubing. After therapy, pt sitting in recliner with call light/phone in reach. All needs met in room. OT Chcf Goals Construction Mgr Goals Time Frame: Feb 01, 2020 Eating (QC): 6 Oral Hygiene (QC): 6 Toileting Hygiene (QC): 6 Shower/Bathe Self (QC): 4 Upper Body Dressing (QC): 6 Lower Body Dressing (QC): 6 On/Off Footwear (QC): 6 Additional Goals: 1-Demonstrate ADL Tasks, 2-Verbalize Understanding, 3- ImproveStrength/Chip 1=Demonstrate adherence to instructed precautions during ADL tasks. 2=Patient will verbalize/demonstrate understanding of assistive bee jose angel/modifications for ADL. 3=Patient will improve strength/tolerance for activity to enable patient to perform ADL's. OT Education/Plan Problem List/Assessment Assessment: Decreased Activ Tolerance Discharge Recommendations Plan/Recommendations: Continue POC Treatment Plan/Plan of Care Patient would benefit from OT for education, treatment and training to promote independence in ADL's, mobility, safety and/or upper extremity function for ADL's. Plan of Care: ADL Retraining, Functional Mobility, Group Exercise/Act as Ind, UE Funct Exercise/Act Treatment Duration: Feb 01, 2020 Frequency: At least 5 of 7 days/Wk (IRF) Estimated Hrs Per Day: 1.5 hours per day Agreement: Yes Rehab Potential: Good Time/GCodes Start Time: 13:00 Stop Time: 13:30 Total Time Billed (hr/min): 30 Billed Treatment Time 1 visit-FA 1 (15 min) EX 1 (15 min) DANAE CROW Jan 21, 2020 13:28
--- NOTE | 2020-01-21 15:29 | NUR ---
THE PATIENT HAD JUST RETURNED TO THE CHAIR FROM USING THE BATHROOM. HER SATURATION WAS 83% AND DROPPED ON DOWN TO 77% WHILE GETTING THE OXYGEN NASAL CANNULA READY TO PUT BACK ON HER. OXYGEN PLACED BACK ON THE PATIENT AT 1 L/M. OXYGEN SATURATION GRADUALLY INCREASED BACK UP TO 91% AFTER A COUPLE OF MINUTES.THE PATIENT WOULD BENEFIT FROM USING OXYGEN WHEN AMBULATING. Addendum: 01/21/20 at 1607 by STELLA HADDAD Amended: Links added.
--- NOTE | 2020-01-21 15:30 | NUR ---
CM/SS PATIENT CARE CONFERENCE Reviewed Summary with patient, she had targeted discharge for Saturday but requested to leave Saturday in relation to her family being available to her. IMM2 presented, reviewed, signed, charted. HHC: Referral completed with patient choice agency, [facility]. Agency confirmed acceptance and will open services on Saturday. DME: New home O2 referral completed with patient choice agency, [facility]. Will provide final orders/instructions when available. Patient has verbalized wanting to learn all the ways to monitor her diet and salt intake better. [place]/Neftali has spoken with patient, her DIL is also exploring some of her favorite foods as it relates to whether they should be avoided or used only in moderation.
--- NOTE | 2020-01-21 16:04 | Physical Therapy Daily Note ---
PT Daily Note-Current Subjective Pt sitting in recliner upon arrival. Pt agrees to PT and excited for DC tomorrow (01/21). Pain Location: No Pain Reported Mental Status Patient Orientation: Person, Place, Time, Situation Attachments: Oxygen (1L) Transfers SCALE: Activities may be completed with or without assistive devices. 6-Hypqkjqdxf-jiizqls completes the activity by him/herself with no assistance from a helper. 5-Set-up or Clean-up Assistance-helper sets up or cleans up; patient completes activity. [place] assists only prior to or following the activity. 4-Supervision or Touching Assistance-helper provides verbal cues and/or touching/steadying and/or contact guard assistance as patient completes activity. Assistance may be provided throughout the activity or intermittently. 3-Partial/Moderate Assistance-helper does LESS THAN HALF the effort. [place] lifts, holds or supports trunk or limbs, but provides less than half the effort. 2-Substantial/Maximal Assistance-helper does MORE THAN HALF the effort. [place] lifts or holds trunk or limbs and provides more than half the effort. 1-Ckbkrditv-nvvgta does ALL the effort. Patient does none of the effort to complete the activity. Or, the assistance of 2 or more helpers is required for the patient to complete the activity. If activity was not attempted, code reason: 7-Patient Refused. 9-Not Applicable-not attempted and the patient did not perform the activity before the current illness, exacerbation or injury. 10-Not Attempted due to Environmental Limitations-(lack of equipment, weather restraints, etc.). 88-Not Attempted due to Medical Conditions or Safety Concerns. Weight Bearing Right Lower Extremity: Right Full Weight Bearing Left Lower Extremity: Left Full Weight Bearing Treatments Reviewed HEP and issued Tband for resistance. Pt reports feeling comfortable on stairs and ambulation and reviewed management of O2 line. Pt resting with all needs met, call light in hand & is made Ad eladio in room (Nurse notified). Assessment Current Status: Good Progress Pt has chiki. tx well and will continue to work at home to build up activity tolerance as breathing improves. PT Short Term Goals Short Term Goals Time Frame: Jan 25, 2020 Roll Left & Right: 5 Sit to lyin Lying to sitting on side of be: 5 Sit to stand: 5 Chair/yaz-vx-zayzx transfer: 5 Walk 10 feet: 5 Walk 50 feet with two turns: 5 Walk 150 feet: 5 PT Prison Goals Prison Goals PT Client Liaison Goals Time Frame: Feb 08, 2020 Roll Left & Right (QC): 6 Sit to Lying (QC): 6 Lying-Sitting on Side/Bed(QC): 6 Sit to Stand (QC): 6 Chair/Exq-io-Xdcrl Xfer(QC): 6 Toilet Transfer (QC): 6 Car Transfer (QC): 6 Does the Patient Walk: Yes Walk 10 feet (QC): 6 Walk 50ft with 2 Turns (QC): 6 Walk 150 ft (QC): 6 Walking 10ft on Uneven Surface: 6 1 Step (curb) (QC): 5 4 Steps (QC): 5 12 Steps (QC): 5 Picking up an Object (QC): 5 Does the Pt use WC or Scooter?: No Wheel 50 feet with 2 turns (QC: 9 Wheel 150 feet: 9 PT Plan Treatment/Plan Treatment Plan: Continue Plan of Care Treatment Plan: Bed Mobility, Education, Functional Activity Chip, Functional Strength, Group Therapy, Gait, Safety, Therapeutic Exercise, Transfers Treatment Duration: Feb 01, 2020 Frequency: At least 5 of 7 days/Wk (IRF) Estimated Hrs Per Day: 1.5 hours per day Patient and/or Family Agrees t: Yes Safety Risks/Education Patient Education: Issued Written HEP, Safety Issues Teaching Recipient: Patient Teaching Methods: Discussion Response to Teaching: Verbalize Understanding Time/GCodes Time In: 1530 Time Out: 1600 Total Billed Treatment Time: 30 Total Billed Treatment 1, EX (15m) & FA (15m) CHELY MEYERS HISTORIOGRAPHER Jan 21, 2020 16:03
[2020-01-21] MEDS: ENOXAPARIN 40 MG/0.4 ML (LOVENOX) SYR SC SCH (16:13)
[2020-01-21 17:38] VITALS: BP 124/58
[2020-01-21] MEDS: FENOFIBRATE, MICRO 67 MG (LOFIBRA) CAPSULE PO SCH (20:48)
[2020-01-21 20:59] VITALS: BP 115/56
[2020-01-22] MEDS: inSUlin ASPART (NovoLOG) 1 UNIT/0.01 ML (CHARGE PER UNIT) SC SCH ×2 (05:24→11:00)
--- NOTE | 2020-01-22 06:11 | Discharge Summary ---
Diagnosis/Chief Complaint Date of Admission Jan 18, 2020 at 10:48 Date of Discharge Discharge Date: Jan 22, 2020 Discharge Diagnosis Assessment: CHF myopathy CRI DM HTN CAD CABG hx HLP Hypoxia h/o PAF w/RVR last admit Anemia Hematochezia hx Plan: Monitor labs Lasix IRF protocol O2 wean 01/19/20: Wean O2 Monitor BP Lasix IV BID 01/20/20: CHF treatment DC Saturday01/21/20: DC tomorrow O2 evaluation to be completed (1) Acute on chronic heart failure Status: Acute (2) BiPAP (biphasic positive airway pressure) dependence (3) Hypertension (4) Hyperlipidemia (5) CAD (coronary artery disease) (6) Atrial fibrillation with rapid ventricular response (7) Respiratory distress (8) Diabetes (9) Hx of CABG Discharge Summary Discharge Physical Examination Allergies: Coded Allergies: Penicillins (Unverified Allergy, Mild, 12/18/08) Vitals & I&Os Vital Signs Date Time Temp Pulse Resp B/P (MAP) Pulse Ox O2 Delivery O2 Flow Rate FiO2 01/22/20 13:43 35.4 63 18 131/61 95 Nasal Cannula 1.00 01/19/20 12:14 28 General Appearance: Alert, Oriented X3, Cooperative Respiratory: Clear to Auscultation Cardiovascular: Regular Rate Neuro: Normal Gait, Normal Speech, Strength at 5/5 X4 Ext Psych/Mental Status: Mental Status NL Hospital Course Was the Problem List Reviewed?: Yes Patient had a short course in IRF after a recurrent episode of AECHF and volume overload requiring new onset O2 dependence. IV Lasix used to diurese successfully by the time she DC and she improved so rapidly she only required 5 days in IRF. O2 was needed on exertion and at night and those orders were placed. [facility] was ordered. Labs (last 24 hrs) Laboratory Tests 01/19/20 04:42: White Blood Count 4.0L, Red Blood Count 4.06, Hemoglobin 11.3L, Hematocrit 37, Mean Corpuscular Volume 91, Mean Corpuscular Hemoglobin 28, Mean Corpuscular Hemoglobin Concent 31L, Red Cell Distribution Width 15.3H, Platelet Count 205, Mean Platelet Volume 9.5, Immature Granulocyte % (Auto) 0, Neutrophils (%) (Auto) 57, Lymphocytes (%) (Auto) 26, Monocytes (%) (Auto) 13H, Eosinophils (%) (Auto) 4, Basophils (%) (Auto) 1, Neutrophils # (Auto) 2.3, Lymphocytes # (Auto) 1.0, Monocytes # (Auto) 0.5, Eosinophils # (Auto) 0.2, Basophils # (Auto) 0.0, Immature Granulocyte # (Auto) 0.0, Sodium Level 143, Potassium Level 3.7, Chloride Level 97L, Carbon Dioxide Level 35H, Anion Gap 11, Blood Urea Nitrogen 29H, Creatinine 1.33H, Estimat Glomerular Filtration Rate 38, BUN/Creatinine Ratio 22, Glucose Level 115H, Calcium Level 8.9, Corrected Calcium 9.1, Total Bilirubin 0.6, Aspartate Amino Transf (AST/SGOT) 16, Alanine Aminotransferase (ALT/SGPT) 16, Alkaline Phosphatase 44, Total Protein 6.6, Albumin 3.7 01/19/20 10:59: Glucometer 162H 01/19/20 15:16: Glucometer 112H 01/19/20 20:16: Glucometer 128H 01/20/20 05:53: Sodium Level 144, Potassium Level 4.1, Chloride Level 99, Carbon Dioxide Level 33H, Anion Gap 12, Blood Urea Nitrogen 34H, Creatinine 1.48H, Estimat Glomerular Filtration Rate 34, BUN/Creatinine Ratio 23, Glucose Level 93, Calcium Level 8.8 01/20/20 10:51: Glucometer 74 01/20/20 18:00: Glucometer 173H 01/20/20 20:47: Glucometer 130H 01/21/20 05:24: Glucometer 89 01/21/20 12:03: Glucometer 118H 01/21/20 16:11: Glucometer 142H 01/21/20 20:42: Glucometer 159H 01/22/20 05:19: Glucometer 101 01/22/20 07:09: White Blood Count 4.9, Red Blood Count 4.44, Hemoglobin 12.4, Hematocrit 40, Mean Corpuscular Volume 91, Mean Corpuscular Hemoglobin 28, Mean Corpuscular Hemoglobin Concent 31L, Red Cell Distribution Width 15.1H, Platelet Count 277, Mean Platelet Volume 10.3, Immature Granulocyte % (Auto) 0, Neutrophils (%) (Auto) 56, Lymphocytes (%) (Auto) 27, Monocytes (%) (Auto) 13H, Eosinophils (%) (Auto) 4, Basophils (%) (Auto) 1, Neutrophils # (Auto) 2.7, Lymphocytes # (Auto) 1.3, Monocytes # (Auto) 0.7, Eosinophils # (Auto) 0.2, Basophils # (Auto) 0.0, Immature Granulocyte # (Auto) 0.0, Sodium Level 143, Potassium Level 3.9, Chloride Level 99, Carbon Dioxide Level 30, Anion Gap 14, Blood Urea Nitrogen 45H, Creatinine 1.31H, Estimat Glomerular Filtration Rate 39, BUN/Creatinine Ratio 34, Glucose Level 117H, Calcium Level 9.3, Total Bilirubin 0.7, Direct Bilirubin 0.3, Indirect Bilirubin 0.4, Aspartate Amino Transf (AST/SGOT) 37H, Alanine Aminotransferase (ALT/SGPT) 45, Alkaline Phosphatase 50, Total Protein 7.3, Albumin 4.0 01/22/20 10:51: Glucometer 176H Pending Labs Laboratory Tests 01/19/20 04:42: White Blood Count 4.0, Red Blood Count 4.06, Hemoglobin 11.3, Hematocrit 37, Mean Corpuscular Volume 91, Mean Corpuscular Hemoglobin 28, Mean Corpuscular Hemoglobin Concent 31, Red Cell Distribution Width 15.3, Platelet Count 205, Mean Platelet Volume 9.5, Immature Granulocyte % (Auto) 0, Neutrophils (%) (Auto) 57, Lymphocytes (%) (Auto) 26, Monocytes (%) (Auto) 13, Eosinophils (%) (Auto) 4, Basophils (%) (Auto) 1, Neutrophils # (Auto) 2.3, Lymphocytes # (Auto) 1.0, Monocytes # (Auto) 0.5, Eosinophils # (Auto) 0.2, Basophils # (Auto) 0.0, Immature Granulocyte # (Auto) 0.0, Sodium Level 143, Potassium Level 3.7, Chloride Level 97, Carbon Dioxide Level 35, Anion Gap 11, Blood Urea Nitrogen 29, Creatinine 1.33, Estimat Glomerular Filtration Rate 38, BUN/Creatinine Ratio 22, Glucose Level 115, Calcium Level 8.9, Corrected Calcium 9.1, Total Bilirubin 0.6, Aspartate Amino Transf (AST/SGOT) 16, Alanine Aminotransferase (ALT/SGPT) 16, Alkaline Phosphatase 44, Total Protein 6.6, Albumin 3.7 01/19/20 10:59: Glucometer 162 11/10/20 15:16: Glucometer 112 01/19/20 20:16: Glucometer 128 01/20/20 05:53: Sodium Level 144, Potassium Level 4.1, Chloride Level 99, Carbon Dioxide Level 33, Anion Gap 12, Blood Urea Nitrogen 34, Creatinine 1.48, Estimat Glomerular Filtration Rate 34, BUN/Creatinine Ratio 23, Glucose Level 93, Calcium Level 8.8 01/20/20 10:51: Glucometer 74 01/20/20 18:00: Glucometer 173 01/20/20 20:47: Glucometer 130 01/21/20 05:24: Glucometer 89 01/21/20 12:03: Glucometer 118 01/21/20 16:11: Glucometer 142 01/21/20 20:42: Glucometer 159 01/22/20 05:19: Glucometer 101 01/22/20 07:09: White Blood Count 4.9, Red Blood Count 4.44, Hemoglobin 12.4, Hematocrit 40, Mean Corpuscular Volume 91, Mean Corpuscular Hemoglobin 28, Mean Corpuscular Hemoglobin Concent 31, Red Cell Distribution Width 15.1, Platelet Count 277, Mean Platelet Volume 10.3, Immature Granulocyte % (Auto) 0, Neutrophils (%) (Auto) 56, Lymphocytes (%) (Auto) 27, Monocytes (%) (Auto) 13, Eosinophils (%) (Auto) 4, Basophils (%) (Auto) 1, Neutrophils # (Auto) 2.7, Lymphocytes # (Auto) 1.3, Monocytes # (Auto) 0.7, Eosinophils # (Auto) 0.2, Basophils # (Auto) 0.0, Immature Granulocyte # (Auto) 0.0, Sodium Level 143, Potassium Level 3.9, Chloride Level 99, Carbon Dioxide Level 30, Anion Gap 14, Blood Urea Nitrogen 45, Creatinine 1.31, Estimat Glomerular Filtration Rate 39, BUN/Creatinine Ratio 34, Glucose Level 117, Calcium Level 9.3, Total Bilirubin 0.7, Direct Bilirubin 0.3, Indirect Bilirubin 0.4, Aspartate Amino Transf (AST/SGOT) 37, Alanine Aminotransferase (ALT/SGPT) 45, Alkaline Phosphatase 50, Total Protein 7.3, Albumin 4.0 01/22/20 10:51: Glucometer 176 Discharge Home Medications: Active Scripts Active Xanax Tablet (Alprazolam) 0.25 Mg Tablet 0.25 Mg PO Q8H PRN Aspirin EC (Aspirin) 81 Mg Tablet.dr 81 Mg PO DAILY Furosemide 40 Mg Tablet 40 Mg PO DAILY Reported Fenofibrate 54 Mg Tablet 54 Mg PO DAILY Atorvastatin Calcium 10 Mg Tablet 10 Mg PO DAILY Amlodipine Besylate 5 Mg Tablet 5 Mg PO DAILY Metoprolol Succinate 100 Mg Tab.er.24h 100 Mg PO DAILY Glyburide 2.5 Mg Tablet 2.5 Mg PO DAILY Hydralazine HCl 25 Mg Tablet 25 Mg PO BID Instructions to patient/family Please see electronic discharge instructions given to patient. Diagnosis/Problems Diagnosis/Problems (1) Acute on chronic heart failure Status: Acute (2) BiPAP (biphasic positive airway pressure) dependence (3) Hypertension (4) Hyperlipidemia (5) CAD (coronary artery disease) (6) Atrial fibrillation with rapid ventricular response (7) Respiratory distress (8) Diabetes (9) Hx of CABG Clinical Quality Measures DVT/VTE Risk/Contraindication: Risk Factor Score Per Nursin RFS Level Per Nursing on Admit: 2=Moderate KEILA MARTINEZ DO Jan 22, 2020 06:11
[2020-01-22] MEDS: glyBURIDE 2.5 MG (MICRONASE) TAB PO SCH (06:12)
[2020-01-22] MEDS: FUROSEMIDE 40 MG/4 ML INJ (LASIX) IVP SCH (06:12)
[2020-01-22 06:32] VITALS: BP 131/61
[2020-01-22 07:18] LABS: BASOPHILS % (AUTO) 1 % (0-10); EOSINOPHILS # (AUTO) 0.2 10^3/uL (0.0-0.3); EOSINOPHILS % (AUTO) 4 % (0-10); HEMATOCRIT 40 % (35-52); HEMOGLOBIN 12.4 g/dL (11.5-16.0); LYMPHOCYTES # (AUTO) 1.3 10^3/uL (1.0-4.0); LYMPHOCYTES % (AUTO) 27 % (12-44); MEAN CORPUSCULAR HEMOGLOBIN 28 pg (25-34); MEAN CORPUSCULAR HGB CONC 31 g/dL (32-36); MEAN CORPUSCULAR VOLUME 91 fL (80-99); MEAN PLATELET VOLUME 10.3 fL (9.0-12.2); MONOCYTES # (AUTO) 0.7 10^3/uL (0.0-1.0); MONOCYTES % (AUTO) 13 % (0-12); NEUTROPHILS # (AUTO) 2.7 10^3/uL (1.8-7.8); NEUTROPHILS % (AUTO) 56 % (42-75); PLATELET COUNT 277 10^3/uL (130-400); WHITE BLOOD COUNT 4.9 10^3/uL (4.3-11.0)
[2020-01-22 07:41] LABS: BILIRUBIN,DIRECT 0.3 MG/DL (0.0-0.3); BILIRUBIN,INDIRECT 0.4 MG/DL; BILIRUBIN,TOTAL 0.7 MG/DL (0.1-1.0); CALCIUM 9.3 MG/DL (8.5-10.1); CREATININE SERUM 1.31 MG/DL (0.60-1.30); POTASSIUM 3.9 MMOL/L (3.6-5.0); TOTAL PROTEIN 7.3 GM/DL (6.4-8.2)
[2020-01-22] MEDS: RT-ALBUTEROL SULF 2.5 MG/3 ML PRE-MIX VIAL INH SCH (08:10)
[2020-01-22] MEDS: SENNA W/DOCUSATE (SENOKOT S) TABLET PO SCH (08:19)
[2020-01-22] MEDS: ASPIRIN E.C. 81 MG (ECOTRIN) TAB PO SCH (08:19)
[2020-01-22] MEDS: DOCUSATE SODIUM 100 MG (COLACE) CAP PO SCH (08:19)
[2020-01-22] MEDS: hydrALAZINE (APRESOLINE) 25 MG TAB PO SCH (08:20)
[2020-01-22] MEDS: FLUTICASONE NASAL SPRAY (FLONASE) 16 GM BTL NS SCH (08:20)
[2020-01-22] MEDS: polyethylene glycoL POWDER 17 GM (MIRALAX) PACK PO SCH (08:20)
[2020-01-22] MEDS: amLODIPine 5 MG (NORVASC) TAB PO SCH (08:20)
[2020-01-22] MEDS: LORATADINE (CLARITIN) 10 MG TAB PO SCH ×2 (08:20)
--- NOTE | 2020-01-22 08:44 | NUR ---
Received dietary consult for diet education on Low-Na diet. Provided and discussed handout on nutrition label reading. Pt asked questions about common foods in her current diet and amounts of Na in those items. Provided suggestions and alternatives to higher-Na food items. Pt verbalized understanding of information provided. Provided contact information should pt have any questions upon discharge. Denise Disla MS RD LD [phone] (cell)
--- NOTE | 2020-01-22 09:06 | Therapy Team Discharge Summary ---
Therapy Discharge Summary Discharge Recommendations Date of Discharge Physical Therapy Patient came to rehab with CHF. Upon evaluation patient performed bed mobility and transfers with CGA, car transfer CGA, ambulated 400' with a rolling walker with CGA (including 50' with at least 2 turns of 90 degrees and 10' over an uneven surface), picked up an object from the floor with CGA, and went up and down 1 step using 2 handrails with min assist. Patient has been performing bed mobility and transfer training, balance and endurance training, functional strengthening, stair training, gait training, and education. Patient has made good progress and has met all of her long term care social worker goals. Now, patient performs bed mobility and transfers with independence, independent with car transfer, ambulates over 150' with a rolling walker with independence (including 50' with at least 2 turns of 90 degrees and 10' over an uneven surface), can parts picker an object from the floor with independence, and can go up and down 12 steps using 1 handrail with setup. Patient is discharging from this facility today and will be discharged from PT at this time. Occupational Therapy Decreased Activ Tolerance PT Care Home Goals Sack Department Supervisor Goals PT Care Home Goals Time Frame: Feb 08, 2020 Roll Left to Right (QC): 6 Sit to Lying (QC): 6 Lying-Sitting on Side/Bed(QC): 6 Sit to Stand (QC): 6 Chair/Esw-rx-Hpdbn Xfer(QC): 6 Car Transfer (QC): 6 Does the Patient Walk: Yes Walk 10 feet (QC): 6 Walk 10ft-Uneven Surface(QC): 6 Walk 50ft with 2 Turns (QC): 6 Walk 150 ft (QC): 6 Does the Pt use WC or Scooter?: No Wheel 50 feet with 2 turns (QC: 9 1 Step (curb) (QC): 5 4 Steps (QC): 5 12 Steps (QC): 5 Picking up an Object (QC): 5 OT Care Home Goals Sack Department Supervisor Goals Time Frame: Feb 01, 2020 Eating (QC): 6 Oral Hygiene (QC): 6 Shower/Bathe Self (QC): 4 Upper Body Dressing (QC): 6 Lower Body Dressing (QC): 6 On/Off Footwear (QC): 6 Toileting Hygiene (QC): 6 Toilet/Commode Transfer (QC): 6 Additional Goals: 1-Demonstrate ADL Tasks, 2-Verbalize Understanding, 3- ImproveStrength/Chip 1=Demonstrate adherence to instructed precautions during ADL tasks. 2=Patient will verbalize/demonstrate understanding of assistive devices/modifications for ADL. 3=Patient will improve strength/tolerance for activity to enable patient to perform ADL's. ISABEL TAMAYO PT Jan 22, 2020 09:06
--- NOTE | 2020-01-22 12:35 | NUR ---
CM/SS DISCHARGE Patient discharged home as planned, she has self arranged her family transport around 1300. HHC: Finalized with [facility] for RN and PT. DME: [place] [facility] coordinated with patient choice agency, [facility]. Portable concentrator has been delivered to patient's room, agency will partner with patient for home delivery and set up. IMM2 presented yesterday, discussed, signed, charted. Unit RN aware of all plans.
[2020-01-22 13:43] VITALS: BP 131/61
--- NOTE | 2020-01-22 13:43 | NUR ---
BEV RODRIGUEZ demonstrates understanding of discharge instructions and accurately returns instructions upon questioning. Copy of Post-Discharge Instructions given to PT. BEV RODRIGUEZ is able to manage continuing needs after discharge. Patients belongings returned to PT. Patient discharged from 227-1 on 01/22/20 at 1330. BEV RODRIGUEZ left floor via W/C, accompanied by STAFF AND FAMILY PER AUTO.
--- NOTE | 2020-01-25 13:01 | Therapy Team Discharge Summary ---
Therapy Discharge Summary Discharge Recommendations Date of Discharge Jan 22, 2020 at 13:43 Therapy D/C Recommendations: Home w/ Family Support Occupational Therapy Pt. has been seen by occupational therapy to increase overall strength and independence with daily skills. Pt. has met all goals, and discharged home with family support. Pt. has all needed equipment, and is doing well with rest breaks during activity. Decreased Activ Tolerance PT Plastics Process Hand Goals Fdc Goals PT Fdc Goals Time Frame: Feb 08, 2020 Roll Left to Right (QC): 6 Sit to Lying (QC): 6 Lying-Sitting on Side/Bed(QC): 6 Sit to Stand (QC): 6 Chair/Ylc-tx-Zxfoh Xfer(QC): 6 Car Transfer (QC): 6 Does the Patient Walk: Yes Walk 10 feet (QC): 6 Walk 10ft-Uneven Surface(QC): 6 Walk 50ft with 2 Turns (QC): 6 Walk 150 ft (QC): 6 Does the Pt use WC or Scooter?: No Wheel 50 feet with 2 turns (QC: 9 1 Step (curb) (QC): 5 4 Steps (QC): 5 12 Steps (QC): 5 Picking up an Object (QC): 5 OT Fdc Goals Fdc Goals Time Frame: Feb 01, 2020 Eating (QC): 6 (met) Oral Hygiene (QC): 6 (met) Shower/Bathe Self (QC): 4 (met) Upper Body Dressing (QC): 6 (met) Lower Body Dressing (QC): 6 (met) On/Off Footwear (QC): 6 (met) Toileting Hygiene (QC): 6 (met) Toilet/Commode Transfer (QC): 6 (met) Additional Goals: 1-Demonstrate ADL Tasks, 2-Verbalize Understanding, 3- ImproveStrength/Chip 1=Demonstrate adherence to instructed precautions during ADL tasks. 2=Patient will verbalize/demonstrate understanding of assistive devices/modifications for ADL. 3=Patient will improve strength/tolerance for activity to enable patient to perform ADL's. MADELIN PUTNAM OT Jan 25, 2020 13:01
== END 2020-01-22 13:43 | disposition home health service (06) | DRG 92 ==
PROVIDERS: ADMIT Internal Medicine; ATTEND Internal Medicine
DX: G72.89 Other specified myopathies (principal); I50.32 Chronic diastolic (congestive) heart failure; I42.9 Cardiomyopathy, unspecified; I11.0 Hypertensive heart disease with heart failure; R09.02 Hypoxemia; Z99.81 Dependence on supplemental oxygen; I25.10 Atherosclerotic heart disease of native coronary artery without angina pectoris; I48.0 Paroxysmal atrial fibrillation; E78.5 Hyperlipidemia, unspecified; E78.00 Pure hypercholesterolemia, unspecified; D50.9 Iron deficiency anemia, unspecified; J45.909 Unspecified asthma, uncomplicated; E11.9 Type 2 diabetes mellitus without complications; I07.1 Rheumatic tricuspid insufficiency; M19.91 Primary osteoarthritis, unspecified site; I25.2 Old myocardial infarction; Z79.84 Long term (current) use of oral hypoglycemic drugs; Z95.1 Presence of aortocoronary bypass graft; Z85.43 Personal history of malignant neoplasm of ovary; Z90.710 Acquired absence of both cervix and uterus
CPT/HCPCS: 36415; 80048; 80053; 80076; 82962; 85025; 94640; 94760; 94761

== ENCOUNTER 2020-10-12 17:21 | Inpatient (IN) | payer MEDICARE ==
[~2020-10-12] VITALS: Ht 160 cm; Wt 82.7 kg
[~2020-10-12 17:21] MED LIST changes: +GLBR2.5T PO; -GLYB2.5T4 PO
[2020-10-12] MEDS ORDERED: dilTIAZem DRIP PRE-MIX 125 ML IV SCH (17:45)
[2020-10-12 17:46] LABS: BASOPHILS % (AUTO) 1 % (0-10); EOSINOPHILS # (AUTO) 0.1 10^3/uL (0.0-0.3); EOSINOPHILS % (AUTO) 1 % (0-10); HEMATOCRIT 47 % (35-52); HEMOGLOBIN 14.5 g/dL (11.5-16.0); LYMPHOCYTES # (AUTO) 1.1 10^3/uL (1.0-4.0); LYMPHOCYTES % (AUTO) 21 % (12-44); MEAN CORPUSCULAR HEMOGLOBIN 28 pg (25-34); MEAN CORPUSCULAR HGB CONC 31 g/dL (32-36); MEAN CORPUSCULAR VOLUME 90 fL (80-99); MEAN PLATELET VOLUME 9.7 fL (9.0-12.2); MONOCYTES # (AUTO) 0.5 10^3/uL (0.0-1.0); MONOCYTES % (AUTO) 10 % (0-12); NEUTROPHILS # (AUTO) 3.5 10^3/uL (1.8-7.8); NEUTROPHILS % (AUTO) 67 % (42-75); WHITE BLOOD COUNT 5.2 10^3/uL (4.3-11.0)
[2020-10-12 17:48] LABS: PLATELET COUNT 159 10^3/uL (130-400)
[2020-10-12 17:58] LABS: POTASSIUM 4.3 MMOL/L (3.6-5.0)
[2020-10-12 17:59] LABS: CALCIUM 6.9 MG/DL (8.5-10.1)
[2020-10-12 18:01] LABS: TOTAL PROTEIN 5.9 GM/DL (6.4-8.2)
[2020-10-12 18:02] LABS: BILIRUBIN,TOTAL 0.6 MG/DL (0.1-1.0)
--- NOTE | 2020-10-12 18:03 | ED Cardiac General ---
History of Present Illness General Chief Complaint: Cardiac/General Problems Stated Complaint: HEART RACING Nursing Triage Note: PT ARRIVED PER EMS, PT CO OF NOT FEELING WELL FOR 1 WEEK STATES WAS SEEN AT DRS OFFICE AND HAD AFIB W RVR. PT HAS SL INPLACE BY EMS L FA #[id number]. PT STATES HAD NEG COVID TEST TODAT AT DR OFFICE Source: patient Exam Limitations: no limitations History of Present Illness Date Seen by Provider: Oct 12, 2020 Time Seen by Provider: 17:18 Initial Comments Patient to the ER by EMS from home with chief complaint that she has for the past week been having some rapid palpitations and weakness on exertion. No chest pain nausea fever chills cough shortness of air. She has a history of atrial fibrillation. She is taking her medications routinely. She is on metoprolol 100 mg succinate daily. She is known to Dr. Monk and Dr. Martinez. She went to urgent care earlier today and they said she was in atrial fibr illation and so she come out to the ER but she wanted to go home and take care of some things first. Allergies and Home Medications Allergies Coded Allergies: Penicillins (Unverified Allergy, Mild, 12/18/08) Home Medications ALPRAZolam 0.25 Mg Tablet, 0.25 MG PO Q8H PRN for ANXIETY Prescribed by: KEILA MARTINEZ on 10/01/19935 Amlodipine Besylate 5 Mg Tablet, 5 MG PO DAILY, (Reported) Aspirin 81 Mg Tablet.dr, 81 MG PO DAILY Prescribed by: KEILA MARTINEZ on 10/01/19935 Atorvastatin Calcium 10 Mg Tablet, 10 MG PO DAILY, (Reported) Fenofibrate 54 Mg Tablet, 54 MG PO DAILY, (Reported) Furosemide 40 Mg Tablet, 40 MG PO DAILY Prescribed by: KEILA MARTINEZ on 09/30/192108 Glyburide 2.5 Mg Tablet, 2.5 MG PO DAILY, (Reported) Hydralazine HCl 25 Mg Tablet, 25 MG PO BID, (Reported) Metoprolol Succinate 100 Mg Tab.er.24h, 100 MG PO DAILY, (Reported) Patient Home Medication List Home Medication List Reviewed: Yes Review of Systems Review of Systems Constitutional: No chills, No fever; malaise, weakness EENTM: No Blurred Vision, No Double Vision Respiratory: Denies Cough, Denies Shortness of Air; SOA With Exertion; Denies Wheezing Cardiovascular: Denies Chest Pain, Denies Lightheadedness Gastrointestinal: Denies Constipated, Denies Diarrhea, Denies Nausea Genitourinary: Denies Discharge, Denies Drainage Musculoskeletal: No back pain, No joint pain Endocrine: Denies Flushing, Denies Intolerance to Cold, Denies Intolerance to Heat All Other Systems Reviewed Negative Unless Noted: Yes Past Zmrjrzv-Zkyujx-Npqpjj Hx Patient Social History Tobacco Use?: No Substance use?: No Alcohol Use?: No Pt feels they are or have been: No Immunizations Up To Date PED Vaccines UTD: Yes COVID19 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 Seasonal Allergies Seasonal Allergies: No Past Medical History Surgeries: Yes (CABG) CABG, Hysterectomy Respiratory: Yes Asthma Currently Using CPAP: No Currently Using BIPAP: No Cardiac: Yes (CABG) Atrial Fibrillation, Cardiomyopathy, Chronic Edema/Swelling, Coronary Artery Disease, High Cholesterol, Hypertension Neurological: No Reproductive Disorders: No Sexually Transmitted Disease: No HIV/AIDS: No Genitourinary: No Renal Failure Gastrointestinal: No Gastrointestinal Bleed, Hemorrhoids Musculoskeletal: Yes Arthritis Endocrine: Yes Diabetes, Non-Insulin dep HEENT: Yes (WEARS GLASSES) Cancer: Yes Ovarian What Type of Treatment Did You: Surgical Intervention Psychosocial: No Integumentary: No Blood Disorders: No Adverse Reaction/Blood Tranf: No Family Medical History FHx: breast cancer 19 MOTHER Myocardial infarction G8 SISTER No Pertinent Family Hx Physical Exam Vital Signs Vital Signs - First Documented Capillary Refill : Less Than 3 Seconds Height, Weight, BMI Height: '" Weight: lbs. oz. kg; 34.00 BMI Method: General Appearance: WD/WN, Anxious, Mild Distress HEENT: PERRL/EOMI, Pharynx Normal, Moist Mucous Membranes Neck: Full Range of Motion, Normal Inspection Respiratory: Chest Non Tender, Lungs Clear, Normal Breath Sounds, No Accessory Muscle Use, No Respiratory Distress Cardiovascular: Regular Rate, Rhythm, No Edema, Normal Peripheral Pulses Gastrointestinal: Normal Bowel Sounds, Non Tender, Soft Extremity: Normal Capillary Refill, Pedal Edema (Bilateral weeping) Neurologic/Psychiatric: Alert, Oriented x3 Skin: Normal Color, Warm/Dry Progress/Results/Core Measures Results/Orders Lab Results Laboratory Tests Test 10/12/20 17:30 Range/Units White Blood Count 5.2 4.3-11.0 10^3/uL Red Blood Count 5.24 H 3.80-5.11 10^6/uL Hemoglobin 14.5 11.5-16.0 g/dL Hematocrit 47 35-52 % Mean Corpuscular Volume 90 80-99 fL Mean Corpuscular Hemoglobin 28 25-34 pg Mean Corpuscular Hemoglobin Concent 31 L 32-36 g/dL Red Cell Distribution Width 16.1 H 10.0-14.5 % Platelet Count 159 130-400 10^3/uL Mean Platelet Volume 9.7 9.0-12.2 fL Immature Granulocyte % (Auto) 0 % Neutrophils (%) (Auto) 67 42-75 % Lymphocytes (%) (Auto) 21 12-44 % Monocytes (%) (Auto) 10 0-12 % Eosinophils (%) (Auto) 1 0-10 % Basophils (%) (Auto) 1 0-10 % Neutrophils # (Auto) 3.5 1.8-7.8 10^3/uL Lymphocytes # (Auto) 1.1 1.0-4.0 10^3/uL Monocytes # (Auto) 0.5 0.0-1.0 10^3/uL Eosinophils # (Auto) 0.1 0.0-0.3 10^3/uL Basophils # (Auto) 0.0 0.0-0.1 10^3/uL Immature Granulocyte # (Auto) 0.0 0.0-0.1 10^3/uL Sodium Level 144 135-145 MMOL/L Potassium Level 4.3 3.6-5.0 MMOL/L Chloride Level 112 H 98-107 MMOL/L Carbon Dioxide Level 22 21-32 MMOL/L Anion Gap 10 5-14 MMOL/L Blood Urea Nitrogen 21 H 7-18 MG/DL Creatinine 0.99 0.60-1.30 MG/DL Estimat Glomerular Filtration Rate 53 BUN/Creatinine Ratio 21 Glucose Level 76 70-105 MG/DL Calcium Level 6.9 L 8.5-10.1 MG/DL Corrected Calcium 7.7 L 8.5-10.1 MG/DL Total Bilirubin 0.6 0.1-1.0 MG/DL Aspartate Amino Transf (AST/SGOT) 27 5-34 U/L Alanine Aminotransferase (ALT/SGPT) 14 0-55 U/L Alkaline Phosphatase 37 L 40-136 U/L Troponin I 0.599 *H <0.028 NG/ML Total Protein 5.9 L 6.4-8.2 GM/DL Albumin 3.0 L 3.2-4.5 GM/DL My Orders Orders - CRISTIAN TALAVERA Diltiazem Drip Pre-Mix (Cardizem Drip Pr (10/12/20 17:45) Diltiazem Injection (Cardizem Injection) (10/12/20 17:45) Cbc With Automated Diff (10/12/20 17:37) Comprehensive Metabolic Panel (10/12/20 17:37) Troponin I (10/12/20 17:37) Chest 1 View, Ap/Pa Only (10/12/20 17:37) Continuous Ekg Monitoring (10/12/20 17:37) Ekg Tracing (10/12/20 17:37) O2 (10/12/20 17:37) Enoxaparin Injection (Lovenox Injection) (10/12/20 18:15) Medications Given in ED Current Medications Medications Dose Ordered Sig/Nancie Route Start Time Stop Time Status Last Admin Dose Admin Diltiazem HCl 10 mg ONCE ONCE IVP 10/12/20 17:45 10/12/20 17:46 DC 10/12/20 18:04 5 MG Vital Signs/I&O 10/12/20 10/12/20 17:22 17:22 Temp 36.1 Pulse 111 Resp 29 B/P (MAP) 159/102 (121) Pulse Ox 93 96 O2 Delivery Nasal Cannula Nasal Cannula O2 Flow Rate 2.00 2.00 Blood Pressure Mean: 121 Progress Progress Note : Time: 18:49 Progress Note Initiated a 5mg Cardizem bolus followed by Cardizem at 5 mg/h and her heart rate is already coming down to 100-110. Lovenox 90 mg subcu. Initial ECG Impression Date: Oct 12, 2020 Initial ECG Impression Time: 17:23 Initial ECG Rate: 109 Initial ECG Rhythm: A Fib/Flutter Initial ECG Intervals: QT (500) Initial ECG Impression: Atrial Fibrillation w/RVR Comment Atrial fibrillation with rapid ventricular response. Borderline QTC prolongation. Diagnostic Imaging Diagonstic Imaging: Xray Plain Films/CT/US/NM/MRI: chest Comments [facility] [place], [place] NAME: BEV RODRIGUEZ MED REC#: [id number] PT STATUS: ADM Shell : 1935 PHYSICIAN: CRISTIAN TALAVERA MD ADMIT DATE: 10/12/20/ICU Signed Date of Exam:10/12/20 CHEST 1 VIEW, AP/PA ONLY INDICATION: Arrhythmia. EXAMINATION: Portable chest at 5:53 p.m. There is cardiomegaly. There are postoperative changes from median sternotomy. Lungs are clear. There is no effusion or pneumothorax. IMPRESSION: Cardiomegaly without evidence of pulmonary venous hypertension. Dictated by: Dictated on workstation # [id number] Dict: 10/12/20 1804 Trans: 10/12/20 1831 PJE [id number] Interpreted by: GT OLGUIN MD Electronically signed by: GT OLGUIN MD 10/12/201830 Reviewed: Reviewed by Me Departure Communication (Admissions) Time/Spoke to Admitting Phy: 18:05 Discussed the case with Dr. Jiang and he agrees with consult to Dr. Parra and observation in the stepdown unit. Time/Spoke to Consulting Phy: 18:00 Discussed the case with Dr. Parra and he agrees to consult on the case. He would like to give 5 mg IV bolus in addition to the drip for Cardizem. He would like her to have 1 mg/kg Lovenox at this time. Impression Primary Impression: Atrial fibrillation with rapid ventricular response Disposition: ADMITTED INPATIENT Condition: Stable Admissions Decision to Admit Reason: Admit from ER (General) Decision to Admit/Date: Oct 12, 2020 Time/Decision to Admit Time: 17:45 Departure-Patient Inst. Referrals: KEILA MARTINEZ DO (PCP/Family) Primary Care Physician CRISITAN TALAVERA Oct 12, 2020 18:02
[2020-10-12 18:04] LABS: CREATININE SERUM 0.99 MG/DL (0.60-1.30)
--- NOTE | 2020-10-12 18:13 | Diagnostic Imaging Report ---
INDICATION: Arrhythmia. EXAMINATION: Portable chest at 5:53 p.m. There is cardiomegaly. There are postoperative changes from median sternotomy. Lungs are clear. There is no effusion or pneumothorax. IMPRESSION: Cardiomegaly without evidence of pulmonary venous hypertension. Dictated by: Dictated on workstation # [id number]
[2020-10-12] MEDS ORDERED: ENOXAPARIN 100 MG/1 ML (LOVENOX) SYR SC ONE (18:15)
--- NOTE | 2020-10-12 18:52 | Tele-ICU Consult ---
History of Present Illness History of Present Illness Date Seen by Provider: Oct 12, 2020 Time Seen by Provider: 18:51 Date of Admission 85 yo F with a fib with V rate up to 115, started on IV cardizem, H Reason for Visit: a fib, palpatations History of Present Illness 85 yo with Hx of a fib, noticed heart was racing, went to PCP found to have a fib with RVR, admitted to MICU, started on IV Cardizem now @ 5, takes lopressor at home on home oxygen @ 2 no c/o CP or SOB, COVID neg Allergies and Home Medications Allergies Coded Allergies: Penicillins (Unverified Allergy, Mild, 12/18/08) Home Medications ALPRAZolam 0.25 Mg Tablet, 0.25 MG PO Q8H PRN for ANXIETY Prescribed by: KEILA MARTINEZ on 10/01/19935 Amlodipine Besylate 5 Mg Tablet, 5 MG PO DAILY, (Reported) Aspirin 81 Mg Tablet.dr, 81 MG PO DAILY Prescribed by: KEILA MARTINEZ on 10/01/19935 Atorvastatin Calcium 10 Mg Tablet, 10 MG PO DAILY, (Reported) Fenofibrate 54 Mg Tablet, 54 MG PO DAILY, (Reported) Furosemide 40 Mg Tablet, 40 MG PO DAILY Prescribed by: KEILA MARTINEZ on 09/30/192108 Glyburide 2.5 Mg Tablet, 2.5 MG PO DAILY, (Reported) Hydralazine HCl 25 Mg Tablet, 25 MG PO BID, (Reported) Metoprolol Succinate 100 Mg Tab.er.24h, 100 MG PO DAILY, (Reported) Past Medical/Social/Family Hx Patient Social History Tobacco Use?: No Substance use?: No Alcohol Use?: No Pt stated abuse/neglect: No Immunizations Up To Date Tetanus Booster (TDap): Unknown Hepatitis A: No Hepatitis B: No TB Skin Test: None Current Status status: No Advance Directives: No Communicates: Verbally Primary Language: Guyanese Preferred Spoken Language: Guyanese Is interpretation needed?: No Past Medical History CABG, hysterectomy,HLD, HTN Review of Systems Constitutional: see HPI Respiratory: see HPI Cardiovascular: palpitations Sepsis Event Evaluation Height, Weight, BMI Height: '" Weight: lbs. oz. kg; 34.00 BMI Method: Exam Exam Patient acknowledged, consented, and participated in this virtual visit which was conducted using real time audio/video Vital Signs Date Time Temp Pulse Resp B/P (MAP) Pulse Ox O2 Delivery O2 Flow Rate FiO2 10/12/20 18:15 89 18 134/84 (121) 94 Nasal Cannula 2.00 10/12/20 17:22 96 Nasal Cannula 2.00 10/12/20 17:22 36.1 111 29 159/102 (121) 93 Nasal Cannula 2.00 Height & Weight Height: '" Weight: lbs. oz. kg; 34.00 BMI Method: General Appearance: Anxious, Mild Distress Cardiovascular: Irregularly Irregular, Tachycardia Capillary Refill: Less Than 3 Seconds Gastrointestinal: normal bowel sounds, non tender, soft Extremity: Pedal Edema, Other (has chronic leg edema) Results Lab Laboratory Tests 10/12/20 17:30 Assessment/Plan Assessment/Plan continue Cardizem, to be followed by cardiology Time spent with patient (mins): 20 SHAHEED ROSA MD Oct 12, 2020 18:52
[2020-10-12 19:00] VITALS: BP 144/65
[2020-10-12] MEDS ORDERED: CATHETER FLUSH 10 ML SYR IV PRN (19:30)
[2020-10-12 20:00] VITALS: BP 150/98
[2020-10-12 21:00] VITALS: BP 127/70
[2020-10-12] MEDS: dilTIAZem DRIP PRE-MIX 125 ML IV SCH (21:15)
[2020-10-12] MEDS: inSUlin ASPART (NovoLOG) 1 UNIT/0.01 ML (CHARGE PER UNIT) SC SCH (21:15)
[2020-10-12 22:00] VITALS: BP 125/60
[2020-10-12] MEDS: CATHETER FLUSH 10 ML SYR IV SCH (22:03)
[2020-10-12 23:00] VITALS: BP 119/54
[2020-10-13] VITALS (24 sets, daily range): BP systolic 103–152; BP diastolic 44–88
[2020-10-13] MEDS ORDERED: ALPRAZolam 0.25 MG (XANAX) TAB PO PRN (03:00)
[2020-10-13] MEDS ORDERED: ALPRAZolam 0.25 MG (XANAX) TAB ONE (03:01)
--- NOTE | 2020-10-13 05:26 | History & Physical ---
History of Present Illness HPI/Chief Complaint CC: AF with RVR HPI: This is an 85yoWF clinic pt of mine for nearly 18 years with a PMH of CAD, previous bypass and CHF, diastolic type with DM and HTN who presents to the ICU after admitted from the ER for AF with RVR. Pt was found to have slight volume overload but at 9:15 this morning after she had remained on Cardizem drip with good rate control of AF transitioning to PO with Dr. Parra consultation, she suffered a neurological deficit noted by the ICU nurse presumed emboli type since she had not been willing to go on anticoagulation with a paroxysmal type of AF she had had before. She underwent CT scan without IV contrast showing no hemorrhage. CT angiogram of the neck and brain showed no evidence of any type of large thrombus on the M2 part of the right cerebral artery distribution she was found to have severe stenosis. TPA was not indicated since her NIH score was 14 initially and by the time after CT scan and I went up in the elevator with her it had improved to 7 but it was a waxing waning of neurological defect but at this point we went ahead and initiated Lovenox 1mg per kg subQ. Bedside swallow study will be performed and MRI was not necessary due to the fact that stroke was confirmed on CT scan. At this current time will monitor pt closely. Source: patient, RN/MD, old records Exam Limitations: clinical condition Date Seen 10/13/20 Time Seen by a Provider: 09:30 Attending Physician Hannah Jiang MD PCP Telma Martinez DO Referring Physician Date of Admission Oct 12, 2020 at 18:10 Home Medications & Allergies Home Medications Reviewed patient Home Medication Reconciliation performed by pharmacy medication reconciliations microcomputer technician and/or nursing. Patients Allergies have been reviewed. Allergies Allergies Coded Allergies Penicillins (Unverified Allergy, Mild, 12/18/08) Past Qeszjdr-Eeuhdh-Lmhssl Hx Past Med/Social Hx: Reviewed Nursing Past Med/Soc Hx, Reviewed and Corrections made Patient Social History Marrital Status: Employed/Student: retired Alcohol Use: Denies Use Smoking Status: Never a Smoker Recent Foreign Travel: No Contact w/other who traveled: No Recent Hopitalizations: No Recent Infectious Disease Expo: No Immunizations Up To Date Pediatric: Yes Seasonal Allergies Seasonal Allergies: No Past Medical History Surgeries: CABG, Hysterectomy Currently Using CPAP: No Currently Using BIPAP: No Cardiac: Atrial Fibrillation, Cardiomyopathy, Chronic Edema/Swelling, Coronary Artery Disease, High Cholesterol, Hypertension Reproductive: No Sexually Transmitted Disease: No HIV/AIDS: No Genitourinary: Renal Failure Gastrointestinal: Gastrointestinal Bleed, Hemorrhoids Musculoskeletal: Arthritis Endocrine: Diabetes, Non-Insulin dep Cancer: Ovarian What Type of Treatment Did You: Surgical Intervention History of Blood Disorders: No Adverse Reaction to Blood [place]: No Family History FHx: breast cancer 19 MOTHER Myocardial infarction G8 SISTER No Pertinent Family Hx Review of Systems Constitutional: see HPI, weakness Cardiovascular: palpitations Psychiatric/Neurological: Weakness Physical Exam Physical Exam Vital Signs Vital Signs - First Documented Capillary Refill : Less Than 3 Seconds Height, Weight, BMI Height: '" Weight: lbs. oz. kg; 34.37 BMI Method: General Appearance: No Apparent Distress, Anxious, Chronically ill, Mild Distress, Obese HEENT: PERRL/EOMI, Pharynx Normal, Moist Mucous Membranes Neck: Full Range of Motion, Normal Inspection Respiratory: Chest Non Tender, Lungs Clear, Normal Breath Sounds, No Accessory Muscle Use, No Respiratory Distress Cardiovascular: Irregularly Irregular, Tachycardia Gastrointestinal: Normal Bowel Sounds, Non Tender, Soft Extremity: Pedal Edema, Other (has chronic leg edema) Neurologic/Psychiatric: Alert, Oriented x3, Disoriented, Facial Droop (Left), Motor Weakness (Left-sided sporadic) Skin: Normal Color, Warm/Dry Results Results/Procedures Labs Laboratory Tests 10/12/20 17:30 10/13/20 06:12 10/14/20 03:53 Patient resulted labs reviewed. Assessment/Plan Admission Diagnosis Assessment: Atrial fibrillation with rapid ventricular response had previous episode of A. 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 fib with CVA Diagnosis/Problems Diagnosis/Problems (1) CVA (cerebral vascular accident) (2) Atrial fibrillation with rapid ventricular response (3) Acute on chronic heart failure Status: Acute (4) Hypertension (5) Hyperlipidemia (6) Respiratory distress (7) Diabetes (8) CAD (coronary artery disease) (9) Type 2 AMI (acute myocardial infarction) (10) Arthritis (11) Hx of CABG TELMA MARTINEZ DO Oct 13, 2020 05:26
[2020-10-13] MEDS ORDERED: ENOXAPARIN 100 MG/1 ML (LOVENOX) SYR SC SCH (06:00)
[2020-10-13] MEDS: CATHETER FLUSH 10 ML SYR IV SCH ×3 (06:11→23:19)
[2020-10-13] MEDS: inSUlin ASPART (NovoLOG) 1 UNIT/0.01 ML (CHARGE PER UNIT) SC SCH ×4 (06:16→21:00)
[2020-10-13 06:42] LABS: BASOPHILS % (AUTO) 1 % (0-10); EOSINOPHILS # (AUTO) 0.1 10^3/uL (0.0-0.3); EOSINOPHILS % (AUTO) 2 % (0-10); HEMATOCRIT 40 % (35-52); HEMOGLOBIN 12.1 g/dL (11.5-16.0); LYMPHOCYTES # (AUTO) 1.1 10^3/uL (1.0-4.0); LYMPHOCYTES % (AUTO) 25 % (12-44); MEAN CORPUSCULAR HEMOGLOBIN 28 pg (25-34); MEAN CORPUSCULAR HGB CONC 31 g/dL (32-36); MEAN CORPUSCULAR VOLUME 91 fL (80-99); MEAN PLATELET VOLUME 9.9 fL (9.0-12.2); MONOCYTES # (AUTO) 0.7 10^3/uL (0.0-1.0); MONOCYTES % (AUTO) 15 % (0-12); NEUTROPHILS # (AUTO) 2.4 10^3/uL (1.8-7.8); NEUTROPHILS % (AUTO) 57 % (42-75); PLATELET COUNT 204 10^3/uL (130-400); WHITE BLOOD COUNT 4.3 10^3/uL (4.3-11.0)
[2020-10-13 06:51] LABS: POTASSIUM 3.2 MMOL/L (3.6-5.0)
[2020-10-13 06:52] LABS: CALCIUM 8.6 MG/DL (8.5-10.1)
[2020-10-13 06:56] LABS: CREATININE SERUM 1.25 MG/DL (0.60-1.30); PHOSPHORUS 4.2 MG/DL (2.3-4.7)
--- NOTE | 2020-10-13 07:36 | Tele-ICU Progress Note ---
Subjective Date Seen by a Provider: Oct 13, 2020 Time Seen by a Provider: 10:42 Subjective/Events-last exam This 8 30 am sat up and then AMS, left sided flaccid, left facial drop, NIH 14, stat CT head negative, CTA head/neck also done, When returned from CT was improved, NIH dropped to 7 with improvement of left sided weakness, AMS better but not normal, Now has dysarthria, Remains on po metoprolol and IV Cardidzem @ 5 mg/h, V rate is in 60's with good BP Trop down to 0.041, Cr went up from 0.99 to 1.25 Had been on Lovenox and now on enoxaparin 90 bid CHADS VASC 2 score 3 Still in a fib with rate of 90 Sounds congested given IV Lasix by hospitalist Sepsis Event Evaluation Height, Weight, BMI Height: '" Weight: lbs. oz. kg; 34.37 BMI Method: Exam Exam Patient acknowledged, consented, and participated in this virtual visit which was conducted using real time audio/video Vital Signs Date Time Temp Pulse Resp B/P (MAP) Pulse Ox O2 Delivery O2 Flow Rate FiO2 10/13/20 06:00 67 19 122/58 (79) 96 High Flow N/C 4.00 10/13/20 05:00 79 19 135/59 (84) 95 High Flow N/C 4.00 10/13/20 04:00 High Flow N/C 4.00 10/13/20 04:00 67 19 125/55 (78) 97 High Flow N/C 4.00 10/13/20 03:00 67 19 135/65 (88) 97 High Flow N/C 4.00 10/13/20 02:00 67 20 123/56 (78) 93 High Flow N/C 4.00 10/13/20 01:00 67 20 144/67 (92) 94 High Flow N/C 4.00 10/13/20 01:00 70 10/13/20 00:00 84 22 114/88 (97) 94 High Flow N/C 4.00 10/13/20 00:00 37.0 10/13/20 00:00 High Flow N/C 4.00 10/13/20 00:00 High Flow N/C 4.00 10/12/20 23:22 High Flow N/C 5.00 10/12/20 23:00 89 18 119/54 (75) 91 High Flow N/C 5.00 10/12/20 22:00 85 21 125/60 (81) 96 High Flow N/C 5.00 10/12/20 21:00 87 25 127/70 (89) 95 High Flow N/C 5.00 10/12/20 20:00 90 20 150/98 (115) 96 High Flow N/C 5.00 10/12/20 19:49 37.1 10/12/20 19:46 Nasal Cannula 3.00 10/12/20 19:00 85 10/12/20 19:00 85 18 144/65 (91) 91 High Flow N/C 5.00 10/12/20 18:15 89 18 134/84 (121) 94 Nasal Cannula 2.00 10/12/20 17:22 96 Nasal Cannula 2.00 10/12/20 17:22 36.1 111 29 159/102 (121) 93 Nasal Cannula 2.00 I & O 10/13/20 06:59 Intake Total 250 ml Output Total 450 ml Balance -200 ml Height & Weight Height: '" Weight: lbs. oz. kg; 34.37 BMI Method: General Appearance: Anxious, Mild Distress HEENT: PERRL/EOMI, Pharynx Normal, Moist Mucous Membranes Neck: Full Range of Motion, Normal Inspection Respiratory: Chest Non Tender, Lungs Clear, Normal Breath Sounds, No Accessory Muscle Use, No Respiratory Distress, Rhonci Cardiovascular: Irregularly Irregular, Tachycardia Capillary Refill: Less Than 3 Seconds Gastrointestinal: normal bowel sounds, non tender, soft Extremity: Pedal Edema, Other (has chronic leg edema) Neurologic/Psychiatric: Alert, Oriented x3, Facial Droop, Motor Weakness (mild facial droop, 3/4 left sided weakness), Other (3/4 LUE weakness, 2/4 LLE and RLE, a chronic weakness) Skin: Normal Color, Warm/Dry Results Lab Laboratory Tests 10/12/20 17:30 10/13/20 06:12 Assessment/Plan Assessment/Plan May have had embolic event, will continue on lovenox 90 bid, to have tele-neuro visit, MD to CT shows plaque in M1, M2 right MCA, no intervention for this, Will keep SBP 150 A fib-will transition over to po meds if can swallow CXR from yesterday shows very enlarged heart with enlarged pulm arteries To get echo, I suspect she has significant pulmonary hypertension Time spent with patient (mins): 25 SHAHEED ROSA MD Oct 13, 2020 07:36
[2020-10-13] MEDS ORDERED: KCL 20 MEQ TAB (K-DUR) PO ONE ×3 (08:20→11:00)
[2020-10-13] MEDS: meTOprolol SUCCINATE 100 MG (TOPROL XL) TAB PO SCH (08:23)
[2020-10-13] MEDS: ASPIRIN 81 MG CHEW (CHILDREN'S ASA) PO SCH (08:23)
--- NOTE | 2020-10-13 08:49 | Consultation-Cardiology ---
HPI-Cardiology Cardiology Consultation Date of Consultation 10/13/20 Date of Admission Time Seen by Provider: 08:44 Indication: Atrial fibrillation HPI 85-year-old lady with history of paroxysmal atrial fibrillation, coronary artery disease, came in by ambulance to the emergency room for increasing palpitation, generalized weakness and loss of energy. She admitted having some chills and feeling hot, no chest pain was reported. No syncope or near syncopal episodes. No claudication. She has been following with Dr. Willoughby and Dr. Yung as an outpatient. I had a long discussion with the patient she has been refusing cardiac catheterization and refused KAMERON and cardioversion. Home Medications & Allergies Allergies: Coded Allergies: Penicillins (Unverified Allergy, Mild, 12/18/08) Home Medication List Reviewed: Yes PFO-Pmdepg-Sgfdev Hx Patient Social History Marital Status: Employed/Student: retired Smoking Status: Never a Smoker Recent Hopitalizations: No Have you traveled recently?: No Alcohol Use?: No Past Medical History Discussed below Family Medical History Significant Family History: No Pertinent Family Hx Family History: FHx: breast cancer 19 MOTHER Myocardial infarction G8 SISTER Review of Systems-General Review of Systems Constitutional: see HPI, malaise, weakness EENTM: see HPI, no symptoms reported Respiratory: see HPI; No cough; dyspnea on exertion; No hemoptysis, No orthopnea, No phlegm, No short of breath, No stridor, No wheezing, No other Cardiovascular: see HPI; No chest pain, No edema, No Hx of Intervention; palpitations; No syncope, No vascular heart diseas, No other Gastrointestinal: no symptoms reported, see HPI Genitourinary: no symptoms reported, see HPI Musculoskeletal: see HPI; No back pain, No joint pain Skin: no symptoms reported, see HPI Psychiatric/Neurological: No Symptoms Reported, See HPI All Other Systems Reviewed Negative Unless Noted: Yes Reviewed Test Results Reviewed Test Results Lab Laboratory Tests Test 10/12/20 17:30 10/12/20 20:50 10/13/20 00:20 10/13/20 06:12 Range/Units White Blood Count 5.2 4.3 4.3-11.0 10^3/uL Red Blood Count 5.24 H 4.34 3.80-5.11 10^6/uL Hemoglobin 14.5 12.1 11.5-16.0 g/dL Hematocrit 47 40 35-52 % Mean Corpuscular Volume 90 91 80-99 fL Mean Corpuscular Hemoglobin 28 28 25-34 pg Mean Corpuscular Hemoglobin Concent 31 L 31 L 32-36 g/dL Red Cell Distribution Width 16.1 H 15.9 H 10.0-14.5 % Platelet Count 159 204 130-400 10^3/uL Mean Platelet Volume 9.7 9.9 9.0-12.2 fL Immature Granulocyte % (Auto) 0 0 % Neutrophils (%) (Auto) 67 57 42-75 % Lymphocytes (%) (Auto) 21 25 12-44 % Monocytes (%) (Auto) 10 15 H 0-12 % Eosinophils (%) (Auto) 1 2 0-10 % Basophils (%) (Auto) 1 1 0-10 % Neutrophils # (Auto) 3.5 2.4 1.8-7.8 10^3/uL Lymphocytes # (Auto) 1.1 1.1 1.0-4.0 10^3/uL Monocytes # (Auto) 0.5 0.7 0.0-1.0 10^3/uL Eosinophils # (Auto) 0.1 0.1 0.0-0.3 10^3/uL Basophils # (Auto) 0.0 0.0 0.0-0.1 10^3/uL Immature Granulocyte # (Auto) 0.0 0.0 0.0-0.1 10^3/uL Sodium Level 144 146 H 135-145 MMOL/L Potassium Level 4.3 3.2 L 3.6-5.0 MMOL/L Chloride Level 112 H 105 98-107 MMOL/L Carbon Dioxide Level 22 31 21-32 MMOL/L Anion Gap 10 10 5-14 MMOL/L Blood Urea Nitrogen 21 H 27 H 7-18 MG/DL Creatinine 0.99 1.25 0.60-1.30 MG/DL Estimat Glomerular Filtration Rate 53 41 BUN/Creatinine Ratio 21 22 Glucose Level 76 85 70-105 MG/DL Calcium Level 6.9 L 8.6 8.5-10.1 MG/DL Corrected Calcium 7.7 L 8.5-10.1 MG/DL Total Bilirubin 0.6 0.1-1.0 MG/DL Aspartate Amino Transf (AST/SGOT) 27 5-34 U/L Alanine Aminotransferase (ALT/SGPT) 14 0-55 U/L Alkaline Phosphatase 37 L 40-136 U/L Troponin I 0.599 *H 0.045 H 0.041 H <0.028 NG/ML Total Protein 5.9 L 6.4-8.2 GM/DL Albumin 3.0 L 3.2-4.5 GM/DL Glucometer 148 H 70-110 MG/DL Phosphorus Level 4.2 2.3-4.7 MG/DL Magnesium Level 2.0 1.6-2.4 MG/DL Physical Exam Physical Exam Vital Signs Vital Signs - First Documented Capillary Refill : Less Than 3 Seconds Height, Weight, BMI Height: '" Weight: lbs. oz. kg; 34.37 BMI Method: General Appearance: Anxious, Mild Distress HEENT: PERRL/EOMI, Pharynx Normal, Moist Mucous Membranes Neck: Full Range of Motion, Normal Inspection Respiratory: Chest Non Tender, Lungs Clear, Normal Breath Sounds, No Accessory Muscle Use, No Respiratory Distress Cardiovascular: Irregularly Irregular, Tachycardia Gastrointestinal: Normal Bowel Sounds, Non Tender, Soft Extremity: Pedal Edema, Other Neurologic/Psychiatric: Alert, Oriented x3 Skin: Normal Color, Warm/Dry A/P-Cardiology Admission Diagnosis Atrial flutter Type II myocardial infarction Coronary artery disease Palpitation Assessment/Plan Atrial fibrillation with rapid ventricular response, currently in atrial flutter with borderline tachycardia, started on Cardizem drip and it was stopped overnight. Heart rate is slightly better. I had a long discussion with the patient regarding the increased risk of stroke and offered KAMERON and cardioversion, patient is very hesitant to have any procedure done, has been refusing oral anticoagulation in the past. Reported that she will think about it. I will evaluate 2D echo and start on Eliquis and Cardizem and Toprol and evaluate tolerance and response [id number] score of 6, yearly risk of stroke without oral anticoagulation is 9.8%. I will start her on Eliquis and evaluate tolerance and response Elevated troponin, probably type II myocardial infarction secondary to tachycardia, underlying coronary artery disease cannot be entirely excluded, I will monitor troponin and offered her cardiac catheterization, patient has been refusing in the past and continues to refuse Coronary artery disease, history of non-ST elevation myocardial infarction in September 2019 and refused cardiac catheterization, had a history of CABG in 2010 using COLES to LAD, vein graft to the right coronary artery and vein graft to the circumflex artery. No recent cardiac work-up, has been following with Dr. Matias did not see him for a while Congestive heart failure, last echo was done in September 2019 showing ejection fraction 55 to 65%, moderately dilated left atrium, mild to moderate tricuspid regurgitation, left ventricular diastolic dysfunction, currently not in heart failure, I will evaluate 2D echo History of chest pain in the past, no recent episodes of chest pain Hypertension, monitor tolerance and response to the medication changes Hyperlipidemia, maintained on statin, continue to monitor Diabetes mellitus, followed and managed by primary care physician ANTHONY NOVOA MD Oct 13, 2020 08:49
[2020-10-13] MEDS ORDERED: APIXABAN 5 MG (ELIQUIS) TABLET PO SCH (09:00)
[2020-10-13] MEDS ORDERED: NS 100 ML (IVPB) BAG IV ONE (09:45)
[2020-10-13] MEDS ORDERED: IOHEXOL 350 MG/ML 100 ML (OMNIPAQUE 350) VIAL IV ONE (09:45)
[2020-10-13] MEDS ORDERED: CATHETER FLUSH 10 ML SYR IV PRN (09:45)
[2020-10-13] MEDS ORDERED: HOLD METFORMIN - RECEIVED CONTRAST 20 ML VIAL IV SCH (09:45)
--- NOTE | 2020-10-13 09:45 | Diagnostic Imaging Report ---
PROCEDURE: CT head wo r/o stroke. TECHNIQUE: Multiple contiguous axial images were obtained through the brain without the use of intravenous contrast. Auto Exposure Controls were utilized during the CT exam to meet ALARA standards for radiation dose reduction. INDICATION: Left-sided weakness and left facial droop as well as slurred speech. No prior studies are available for comparison. Ventricles and sulci are within normal limits. No sulcal effacement or midline shift is identified. No acute intra-axial or extra-axial hemorrhage is detected. Cisterns are patent. Visualized paranasal sinuses are clear. IMPRESSION: No acute intracranial process is detected. Dictated by: Dictated on workstation # [id number]
[2020-10-13] MEDS ORDERED: FUROSEMIDE 40 MG/4 ML INJ (LASIX) IVP ONE (10:30)
[2020-10-13] MEDS ORDERED: LORazepam INJ 2 MG/ML (ATIVAN) VIAL IVP PRN (10:30)
[2020-10-13] MEDS: ENOXAPARIN 100 MG/1 ML (LOVENOX) SYR SC SCH ×3 (10:43→23:19)
--- NOTE | 2020-10-13 10:50 | Diagnostic Imaging Report ---
PROCEDURE: CT angiography of the head and CT angiography of the neck with and without contrast. TECHNIQUE: Contiguous noncontrast images were obtained from the skull base through the vertex. After intravenous contrast administration, helical CT angiography of the neck was performed. Source data was reformatted into 3D MIP projections. Delayed post contrast acquisition was also obtained. Auto Exposure Controls were utilized during the CT exam to meet ALARA standards for radiation dose reduction. INDICATION: Left-sided weakness and slurred speech. FINDINGS: CTA NECK: There is a three-vessel branching pattern to the aortic arch. The common carotid arteries are tortuous bilaterally but appear to be patent. There is a moderate amount of calcified plaque at the bifurcations bilaterally but no high-grade stenosis is identified. Both the right and left internal carotid arteries appear widely patent. There is heavy calcified plaque at the carotid siphons bilaterally. CTA HEAD: There is a prominent large calcified plaque in the right middle cerebral artery in the region of the distal M1 segment measuring 4 mm in size. This appears to occlude a large portion of the lumen although there does appear to be contrast within the vessel lumen distal to the plaque. No complete occlusion is identified. The M2 and M3 branches beyond this point appear to be opacified although there is a definite asymmetry in peripheral blood flow being reduced in the right middle cerebral artery territory compared with the left. There also appears to be a paucity of M2 branches on the right, suggestive of at least one M2 branch occlusion. The left middle cerebral artery appears to be widely patent. The right and left anterior cerebral arteries are patent. The posterior cerebral arteries are patent. The basilar artery demonstrates calcified plaque but appears patent. There is heavy plaque in the distal left vertebral artery. The vertebral arteries appear to be codominant. IMPRESSION: 1. There is a large calcified atherosclerotic plaque in the right middle cerebral artery M1 segment which is likely producing severe luminal stenosis although there does not appear to be complete occlusion. There is definite asymmetry in cerebral blood flow, being reduced in the right MCA territory compared to the left. There are findings suggestive of an M2 branch occlusion. 2. These results were called to Dr. Mahsa Yung prior to this dictation. Dictated by: Dictated on workstation # [id number]
[2020-10-13] MEDS: dilTIAZem120 MG (CARDIZEM CD) CAP PO SCH (10:56)
[2020-10-13 10:57] LABS: CHOLESTEROL 88 MG/DL (< 200); HDL CHOLESTEROL 37 MG/DL (40-60); TRIGLYCERIDES 80 MG/DL (<150); VLDL CHOLESTEROL 16 MG/DL (5-40)
--- NOTE | 2020-10-13 11:45 | Speech Therapy Progress Note ---
Therapy Progress Note ST attempted to complete Bedside Dysphagia Evaluation this am. Patient is too lethargic to participate at this time. She would alert to her name and shake her head y/n to questions, but unable to keep her eyes open. will follow up this afternoon. CHEN CASILLAS Oct 13, 2020 11:45
[2020-10-13 11:57] LABS: ABG BASE EXCESS 5.6 MMOL/L (-2.5-2.5); ABG OXYGEN SATURATION 73 % (94-100); ABG PCO2 59 MMHG (35-45); ABG PO2 44 MMHG (79-93); ABG TCO2 33.2 MMOL/L (21.0-31.0)
[2020-10-13 11:59] LABS: ABG PH 7.34 (7.37-7.43); ALLENS TEST POSITIVE; INSPIRED O2 4; PATIENT TEMP 36.4; VENTILATOR NO
[2020-10-13 13:46] LABS: ABG BASE EXCESS 6.8 MMOL/L (-2.5-2.5); ABG OXYGEN SATURATION 94 % (94-100); ABG PCO2 53 MMHG (35-45); ABG PO2 67 MMHG (79-93); ABG TCO2 33.4 MMOL/L (21.0-31.0)
[2020-10-13 13:50] LABS: ALLENS TEST POSITIVE; INSPIRED O2 5 L; PATIENT TEMP 36.4; VENTILATOR NO
[2020-10-13] MEDS ORDERED: FURO40TA4 PO (14:00)
[2020-10-13] MEDS ORDERED: ASPI-1238 PO (14:00)
[2020-10-13] MEDS ORDERED: CHOL20002 PO (14:00)
--- NOTE | 2020-10-13 14:11 | Physical Therapy Evaluation ---
PT Evaluation-General Medical Diagnosis Admission Date Oct 13, 2020 at 11:10 Medical Diagnosis: CVA Onset Date: Oct 13, 2020 Therapy Diagnosis Therapy Diagnosis: impaired mobility, strength, endurance, balance Precautions Precautions/Isolations: Fall Prevention, Standard Precautions Referral Physician: Temla Yung DO Reason for Referral: Evaluation/Treatment Medical History Pertinent Medical History: Atrial Fib, CABG, CAD, DM, HTN, [place], OA Additional Medical History Past Medical History Surgeries: CABG, Hysterectomy Currently Using CPAP: No Currently Using BIPAP: No Cardiac: Atrial Fibrillation, Cardiomyopathy, Chronic Edema/Swelling, Coronary Artery Disease, High Cholesterol, Hypertension Reproductive: No Sexually Transmitted Disease: No HIV/AIDS: No Genitourinary: Renal Failure Gastrointestinal: Gastrointestinal Bleed, Hemorrhoids Musculoskeletal: Arthritis Endocrine: Diabetes, Non-Insulin dep Cancer: Ovarian What Type of Treatment Did You: Surgical Intervention Reviewed History: Yes Social History Home: Single Level Entry Into Home: Stairs With Railing PT Steps Into Home: 3 Prior Prior Level of Function SCALE: Activities may be completed with or without assistive devices. 3-Tpdxbdmppa-drermsv completes the activity by him/herself with no assistance from a helper. 5-Set-up or Clean-up Assistance-helper sets up or cleans up; patient completes activity. [place] assists only prior to or following the activity. 4-Supervision or Touching Assistance-helper provides verbal cues and/or touching/steadying and/or contact guard assistance as patient completes activity. Assistance may be provided throughout the activity or intermittently. 3-Partial/Moderate Assistance-helper does LESS THAN HALF the effort. [place] lifts, holds or supports trunk or limbs, but provides less than half the effort. 2-Substantial/Maximal Assistance-helper does MORE THAN HALF the effort. [place] lifts or holds trunk or limbs and provides more than half the effort. 8-Nlpqneozi-pybrii does ALL the effort. Patient does none of the effort to complete the activity. Or, the assistance of 2 or more helpers is required for the patient to complete the activity. If activity was not attempted, code reason: 7-Patient Refused. 9-Not Applicable-not attempted and the patient did not perform the activity before the current illness, exacerbation or injury. 10-Not Attempted due to Environmental Limitations-(lack of equipment, weather restraints, etc.). 88-Not Attempted due to Medical Conditions or Safety Concerns. Bed Mobility: 6 Transfers (B,C,W/C): 6 Prior Devices Use: Motorized scooter, Walker Patient states she uses a motorized scooter in her home but can ambulate a few feet for example to her restroom. PT Evaluation-Current Subjective Patient in bed pre tx, agrees to PT, has no complaints of pain. Patient is cold and seems very preoccupied with her blankets and insists they be on her, grabs them and puts them back on her when layed to the side to get up. Patient even tries to put them over her head. Pt/Family Goals to be independent at home Objective Patient Orientation: Person, Place, Situation Attachments: Oxygen, Renae Catheter ROM/Strength ROM Lower Extremities WNL Strength Lower Extremities LLE (hip flexion 3-/5, knee flexion 3+/5, knee extension 3+/5, dorsiflexion 3+/5), RLE (hip flexion 3-/5, knee flexion 3+/5, knee extension 3+/5, dorsiflexion 3+/5) Neuromuscular (Tone, Coordination, Reflexes) Patient vision is not able to be tested accurately, she seems to have impaired v ision on the left side but it is hard to tell, patient had difficulty following directions. Sensory Hearing: Functional Sensation Right Lower Extremit: Intact Sensation Left Lower Extremity: Intact Transfers Roll Left to Right (QC): 2 Sit to Lying (QC): 2 Lying to Sitting/Side of Bed(Q: 2 Sit to Stand (QC): 3 Patient leans to the left when sitting, not enough to fall over but leans. Gait Does the Patient Walk?: Yes Mode of Locomotion: Walk Anticipated Mode of Locomotion: Walk Walk 10 feet (QC): 3 Distance: 10' Gait Assistive Device: FWW Comments/Gait Description Patient ambulates leaning slightly to the left side, min assist with balance, needs lots of cues for safety and direction, hard for patient to stay on task. Balance Sitting Static: Poor Sitting Dynamic: Poor Standing Static: Poor Standing Dynamic: Poor Assessment/Needs Patient has impaired mobility, strength, endurance, balance. Patient in bed post tx with nurse call, phone, tray, all needs met. Patient leans to the left with sitting and ambulation, needs max assist for supine <-> sit. Patient's HR stayed under 100bpm and O2 stayed around 94% during tx. Rehab Potential: Fair PT Halfway Goals [employer] Operator Goals PT Halfway Goals Time Frame: Oct 20, 2020 Roll Left & Right (QC): 3 Sit to Lying (QC): 3 Lying-Sitting on Side/Bed(QC): 3 Sit to Stand (QC): 4 Chair/Cch-oy-Uhdyx Xfer(QC): 4 Walk 10 feet (QC): 4 Walk 50ft with 2 Turns (QC): 4 PT Plan Problem List Problem List: Activity Tolerance, Functional Strength, Safety, Balance, Gait, Transfer, Bed Mobility, ROM Treatment/Plan Treatment Plan: Continue Plan of Care Treatment Plan: Bed Mobility, Education, Functional Activity Chip, Functional Strength, Gait, Safety, Therapeutic Exercise, Transfers Treatment Duration: Oct 20, 2020 Frequency: 6 times per week Estimated Hrs Per Day: .25 hour per day Patient and/or Family Agrees t: Yes Safety Risks/Education Patient Education: Gait Training, Transfer Techniques, Correct Positioning, Safety Issues Teaching Recipient: Patient Teaching Methods: Demonstration, Discussion Response to Teaching: Reinforcement Needed Discharge Recommendations Plan Patient will perform bed mobility and transfer training, balance and endurance training, functional strengthening, stair training, gait training, and education, to improve functional mobility and independence at home. Therapy Discharge Recommendati: Post Acute PT Time/GCodes Time In: 1320 Time Out: 1335 Total Billed Treatment Time: 15 Total Billed Treatment 1 visit ALBAN 15' ISABEL TAMAYO PT Oct 13, 2020 14:11
--- NOTE | 2020-10-13 14:32 | Occupational Therapy Eval ---
OT Evaluation-General/PLF Medical Diagnosis Admission Date Oct 13, 2020 at 11:10 Medical Diagnosis: afib with RVR, CVA Onset Date: Oct 13, 2020 Therapy Diagnosis Therapy Diagnosis: weakness, decreased ADL status Precautions Precautions/Isolations: Fall Prevention, Standard Precautions Referral Physician: Telma Yung DO Referral Reason: Evaluation/Treatment Medical History Pertinent Medical History: Atrial Fib, CABG, CAD, DM, HTN, [place], OA Additional Medical History cardiomyopathy, chronic edema/swelling, Renal failure, GI bleed, arthritis, ovarian cancer Current History 10/12/20 ED due to palpitations, weakness, loss of energy. 10/13/20 at 0830 AMS, L side weakness, L facial droop. CT & CTA performed, upon returning to room L side weakness improved, AMS better, and dysarthia present Social History Home: Single Level Entry Into Home: Stairs With Railing Steps Into Home: 3 ADL-Prior Level of Function SCALE: Activities may be completed with or without assistive devices. 7-Tjapkkqjfq-dtbnnjx completes the activity by him/herself with no assistance from a helper. 5-Set-up or Clean-up Assistance-helper sets up or cleans up; patient completes activity. [place] assists only prior to or following the activity. 4-Supervision or Touching Assistance-helper provides verbal cues and/or touching/steadying and/or contact guard assistance as patient completes activity. Assistance may be provided throughout the activity or intermittently. 3-Partial/Moderate Assistance-helper does LESS THAN HALF the effort. [place] lifts, holds or supports trunk or limbs, but provides less than half the effort. 2-Substantial/Maximal Assistance-helper does MORE THAN HALF the effort. [place] lifts or holds trunk or limbs and provides more than half the effort. 7-Anxjhdjsa-esdpvy does ALL the effort. Patient does none of the effort to complete the activity. Or, the assistance of 2 or more helpers is required for the patient to complete the activity. If activity was not attempted, code reason: 7-Patient Refused. 9-Not Applicable-not attempted and the patient did not perform the activity before the current illness, exacerbation or injury. 10-Not Attempted due to Environmental Limitations-(lack of equipment, weather restraints, etc.). 88-Not Attempted due to Medical Conditions or Safety Concerns. ADL PLOF Comments Pt indicates she was independent with bathing/dressing/toileting, she is able to perform simple meals but also has 1 meal a day provided to her. She uses a motorized scooter around her house, only taking a few steps from scooter into the bathroom. Pt unclear on distance she is able to ambulate Self Care: Independent DME/Equipment: Bath Chair, Shower DME/Equipment Comments motorized scooter, walker OT Current Status Subjective Pt laying in bed, agreeable to OT evaluation and tx. Pt states she is cold throughout session, insists her blankets are on her at all times. Mental Status/Objective Patient Orientation: Person, Place, Situation Attachments: Renae Catheter, Oxygen Current Upper Extremity ROM WFL, BUE shoulder flexion to approx 140 degrees Upper Extremity Coordination WFL Upper Extremity Sensation WFL Upper Extremity Strength RUE grossly 3+/5, LUE grossly 3/5 ADL-Treatment On/Off Footwear (QC): 1 (total assist donning gripper socks) Toileting Hygiene (QC): 1 (assist to perform hygiene in stand) Other Treatments Pt laying in bed, OT evaluation complete. Pt transferred supine to sit EOB, max A. With sitting at EOB, pt leans towards the L side but not far enough to fall over. Pt handed gripper sock and instructed to don, pt did not initiate. Pt revealed that she doesn't want to fall over, total assist with footwear. Pt stood at EOB (QC 3, min A), performing functional mobility with FWW 10', leaning slightly to the L side, min A with balance. Pt needs max verbal cues for safety and direction as it is hard for pt to stay on task. OT assisted pt with washing buttocks, as smear of BM noted on bed. Clean pad placed in bed, and pt returned to EOB, then max A to return supine. Throughout tx, pt is cold, and attempts to keep blankets on her at all times. When OT removes blankets and places them to the side, pt grabs them and puts them back on her, she even tries to put them over her head at one point. After pt returns to bed, OT provided pt with warm blanket. Post tx, pt laying in bed, call light in reach and all needs met. Education OT Patient Education: Correct positioning, Modified ADL techniques, Progress toward Goal/Update tx plan, Purpose of tx/functional activities, Rehab process, Safety issues, Transfer techniques Teaching Recipient: Patient Teaching Methods: Discussion Response to Teaching: Reinforcement Needed OT Mcc Goals Mcc Goals Time Frame: Oct 28, 2020 Eating (QC): 6 Oral Hygiene (QC): 6 Toileting Hygiene (QC): 4 Shower/Bathe Self (QC): 4 Upper Body Dressing (QC): 5 Lower Body Dressing (QC): 4 On/Off Footwear (QC): 3 Additional Goals: 1-Demonstrate ADL Tasks, 2-Verbalize Understanding, 3- ImproveStrength/Chip 1=Demonstrate adherence to instructed precautions during ADL tasks. 2=Patient will verbalize/demonstrate understanding of assistive devices/modifications for ADL. 3=Patient will improve strength/tolerance for activity to enable patient to perform ADL's. OT Education/Plan Problem List/Assessment Assessment: Decreased Activ Tolerance, Decreased Safety Aware, Decreased UE Strength, Impaired Bed Mobility, Impaired Funct Balance, Impaired I ADL's, Impaired Self-Care Skills Discharge Recommendations Plan/Recommendations: Continue POC Treatment Plan/Plan of Care Patient would benefit from OT for education, treatment and training to promote independence in ADL's, mobility, safety and/or upper extremity function for ADL's. Plan of Care: ADL Retraining, Functional Mobility, UE Funct Exercise/Act Treatment Duration: Oct 28, 2020 Frequency: 5 times per week Estimated Hrs Per Day: .25 hour per day Rehab Potential: Fair Time/GCodes Start Time: 13:20 Stop Time: 13:35 Total Time Billed (hr/min): 15 Billed Treatment Time 1, TOM SKELTON OT Oct 13, 2020 14:32
[2020-10-13] MEDS: NYSTATIN CREAM (MYCOSTATIN) 30 GM TUBE TP SCH ×2 (14:48→19:44)
--- NOTE | 2020-10-13 15:27 | ST Dysphagia Evaluation ---
Speech Evaluation-General Medical Diagnosis afib with RVR, CVA Onset Date: Oct 13, 2020 Therapy Diagnosis Therapy Diagnosis: Oropharyngeal Dysphagia Precautions Precautions: Aspiration Precautions/Isolations: Aspiration, Standard Precautions Referral Referring Physician: Dr. Yung Medical History Pertinent Medical History: Atrial Fib, CABG, CAD, DM, HTN, ME, OA Reviewed History: Yes Social History Home: Single Level Speech PLF/Current-Dysphagia Prior Level of Function Patient lived in her own home. Subjective Patient was lethargic but was able to wake up with verbal and tactile cues to participate in the Bedside Dysphagia Evaluation. Cognitive Status Patient Orientation: Person, Place, Situation, Listless Oral Motor Skills Dentition: Natural Ability to Follow Directions: Fair Patient was NPO pending BDE Oral Expression Ability: Moderate Impairment Voice Voice Phonatory-Based Quality: Breathy, Weak Voice Pitch: Normal Voice Loudness: Severely Soft/Quiet Face Facial Symmetry: Symmetrical Oral-Facial Assessment Oral-Facial Dentition: Normal Labial Seal Description: Reduced ROM, Droops Left, Weak Lingual Protrusion: Abnormal Decreased ROM strength and coordination, left side weakness Lingual ROM: Abnormal Decreased ROM strength and coordination, left side weakness Lingual Strength: Abnormal Decreased ROM strength and coordination, left side weakness Pharynx Velopharyngeal Move.: Weak on Left Volitional Dry Swallow: No Productive Cough: Yes Productive Throat Clear: Yes Dysphagia Evaluation Consistencies Presented: Thin Liquid, Pureed Oral Phase: Oral Residue, Unable to Suck Straw, Reduced Oral Transit Oral phase is decreased ROM strength and coordination, left side weakness for bolus management. Pharyngeal phase is decreased ROM strength and coordination, left side weakness for swallow initiation/clearing. Funct. Velo/Pharyngeal Symptom: Cough After Swallow Cough/clear with 1/2 tsp water on the first trial, second trial cleared without coughing noted Dietary Recommendations: Pureed Liquid Recommendations: Thin Swallowing Precautions: Alternate Liquids/Solids, Double Swallow, Decreased Bolus 1/4 Tsp, Decreased Rate of Oral Intake, Liquids from Spoon, No Straw, Oral Supervision Staff (Patient will require total assist for all oral intake ), Small Bites and Sips, Sitting Upright 90 Degrees, Sitting 90 Degrees 30 Post Intake Dysphagia Evaluation Summary Patient is a pleasant 85 y/o female who was admitted to the ICU s/p CVA this am. The patient was referred for Bedside Dysphagia Evaluation which was completed this afternoon. ST attempted to complete earlier in the day, however the patient was too lethargic to participate. She responded to verbal and tactile cues enough to complete the trials of thin liquid intake of 1/2 tsp x2 with cough/clear noted on the first. She tolerated the second without coughing noted. She was given 1/3 tsp of puree which she swallowed with mild residue. She was able to complete second swallow to clear oral cavity upon verbal direction. Nursing advised to assist her with puree and thin liquids via 1/2 tsp, no straws at this time. Patient is unable to suck through a straw and only blew bubbles when the straw was presented. She was noted to have episodes of "blow back" while sitting up. Barriers to Learning Patient's CVA this morning, age, current level of function Speech Short Term Goals Short Term Goals Short Term Goals 1) Patient will tolerate least restrictive diet level without s/s of aspiration at 80%. 2) Patient/caregiver will utilize compensatory strategies at 90% or greater with minimal cues. Speech Gasateria Attendant Goals [facility] Goals Patient will maintain adequate nutrition/hydration via safe effective swallow function. Speech-Plan Patient/Family Goals Patient/Family Goals: Patient's plans are to return home as previously indicated. Treatment Plan Speech Therapy Treatment Plan: Continue Plan of Care Treatment Duration: Oct 21, 2020 Frequency: 4 times per week (Patient will receive skilled ST 4-5x per week) Estimated Hrs Per Day: .5 hour per day Rehab Potential: Fair Barriers to Learning: Patient's CVA this morning, age, current level of function Pt/Family Agrees to Plan: Yes Safety Risks/Education Teaching Recipient: Patient Teaching Methods: Discussion Response to Teaching: Verbalize Understanding, Reinforcement Needed Education Topics Provided: Safety of oral intake, diet level Time Speech Therapy Time In: 15:10 Speech Therapy Time Out: 15:25 Total Billed Time: 15 Billed Treatment Time 1, YULIET, DYST CHEN Gomez Oct 13, 2020 15:27
--- NOTE | 2020-10-13 16:32 | Progress Note ---
DESMOND LEWIS 10/13/20 1632: Progress Note 85 F presents with afib w/ RVR and CVA onset this morning at 8:30am. Waxing/waning muscle weakness. Called [facility] radiology CT showing M1/M2 thrombus. Ordered Lovenox, Lasix, ABG, Lipid panel, Furosemide, and Triamcinolone. NIH stroke scale improved from a 14 to 7 at 09:50. Pt was arousable by mild stimulation, incorrectly answered month, partial gaze palsy, no visual loss, slight left sided facial droop, no UE/LE motor drift, no limb ataxia, no sensory loss, no aphasia, slight dysarthria, and no abnormality in attention/extinction totally a NIH score of 7. TPA contraindicated due to rapidly improving. TELMA MARTINEZ DO 10/14/20 0709: Supervisory-Addendum Brief Verification & Attestation Participated in pt care: history, MDM, physical Personally performed: exam, history, MDM, supervision of care Care discussed with: Medical Student Procedures: n/a Results interpretation: Verified all documentation Verification and Attestation of Medical Student E/M Service A medical student performed and documented this service in my presence. I reviewed and verified all information documented by the medical student and made modifications to such information, when appropriate. I personally performed the physical exam and medical decision making. Telma Martinez Oct 14, 2020,07:09 DESMOND LEWIS Oct 13, 2020 16:32 TELMA MARTINEZ DO Oct 14, 2020 07:09
[2020-10-13] MEDS: dilTIAZem DRIP PRE-MIX 125 ML IV SCH (18:02)
[2020-10-13] MEDS: TRIAMCINOLONE 0.5% CR (KENALOG) 15 GM TUBE TOP SCH (19:44)
[2020-10-13] MEDS ORDERED: D5 LR IV SOLUTION 1,000 ML IV ONE (20:55)
[2020-10-13] MEDS: D5 LR IV SOLUTION 1,000 ML IV SCH (20:59)
[2020-10-13] MEDS ORDERED: MELATONIN 3 MG TABLET PO SCH (21:00)
[2020-10-14] VITALS (22 sets, daily range): BP systolic 100–153; BP diastolic 62–100
[2020-10-14 04:04] LABS: BASOPHILS % (AUTO) 1 % (0-10); EOSINOPHILS # (AUTO) 0.1 10^3/uL (0.0-0.3); EOSINOPHILS % (AUTO) 2 % (0-10); HEMATOCRIT 41 % (35-52); HEMOGLOBIN 12.6 g/dL (11.5-16.0); LYMPHOCYTES % (AUTO) 18 % (12-44); MEAN CORPUSCULAR HEMOGLOBIN 28 pg (25-34); MEAN CORPUSCULAR HGB CONC 31 g/dL (32-36); MEAN CORPUSCULAR VOLUME 90 fL (80-99); MEAN PLATELET VOLUME 9.2 fL (9.0-12.2); MONOCYTES # (AUTO) 0.6 10^3/uL (0.0-1.0); MONOCYTES % (AUTO) 11 % (0-12); NEUTROPHILS # (AUTO) 3.8 10^3/uL (1.8-7.8); NEUTROPHILS % (AUTO) 68 % (42-75); PLATELET COUNT 196 10^3/uL (130-400); WHITE BLOOD COUNT 5.6 10^3/uL (4.3-11.0)
[2020-10-14 04:14] LABS: ALBUMIN 3.4 GM/DL (3.2-4.5); POTASSIUM 3.5 MMOL/L (3.6-5.0)
[2020-10-14 04:17] LABS: TOTAL PROTEIN 6.4 GM/DL (6.4-8.2)
[2020-10-14 04:18] LABS: BILIRUBIN,TOTAL 0.8 MG/DL (0.1-1.0)
[2020-10-14 04:20] LABS: CREATININE SERUM 1.14 MG/DL (0.60-1.30); PHOSPHORUS 3.9 MG/DL (2.3-4.7)
[2020-10-14 04:23] LABS: MAGNESIUM 1.9 MG/DL (1.6-2.4)
[2020-10-14] MEDS: inSUlin ASPART (NovoLOG) 1 UNIT/0.01 ML (CHARGE PER UNIT) SC SCH ×4 (05:36→21:49)
[2020-10-14] MEDS ORDERED: POTASSIUM CL 10MEQ/50ML IVPB 50 ML IV SCH (06:00)
[2020-10-14] MEDS ORDERED: MAGNESIUM 1 GM/100 ML IVPB 100 ML IV SCH (06:00)
[2020-10-14] MEDS ORDERED: KCL 20 MEQ TAB (K-DUR) PO SCH (06:00)
[2020-10-14] MEDS: POTASSIUM CL 10MEQ/50ML IVPB 50 ML IV SCH ×2 (06:22→06:23)
[2020-10-14] MEDS: CATHETER FLUSH 10 ML SYR IV SCH (06:23)
--- NOTE | 2020-10-14 07:37 | Diagnostic Imaging Report ---
INDICATION: Dyspnea. COMPARISON: 10/12/2020 FINDINGS: Single frontal radiographic view of the chest was obtained and demonstrates persistent moderate to marked cardiomegaly and moderate pulmonary vascular congestion. There is also diffuse prominence of the pulmonary interstitium. This has progressed when compared to prior exam and is concerning for progressive pulmonary edema. Small effusions cannot be excluded. There is no pneumothorax. Sternotomy wires are noted. Osseous structures show no acute adverse interval change. IMPRESSION: 1. Cardiomegaly with pulmonary vascular congestion and findings concerning for progressive interstitial pulmonary edema. Dictated by: Dictated on workstation # [id number]
--- NOTE | 2020-10-14 08:59 | Tele-ICU Progress Note ---
Subjective Date Seen by a Provider: Oct 14, 2020 Time Seen by a Provider: 08:30 Subjective/Events-last exam Patient participated in this virtual visit which was conducted using real time audio/video. Thank you for asking us to see this patient for critical care management. HPC: Recent events:Off Cardizem, still in afib/flutter. Refusing cardioversion or Cardiac cath. per REJI Cruz. CTH neg but still L mouth droop, increased weakness. PMH:On Noct O2 PE: Appears comfortable via camera. HR 80-100 af/flutter. O2 sat 94% on 12 LPM NC HEENT: No obvious masses, adenopathy or JVD. Chest: clear to auscultation, but greatly diminished breath sounds. CV:S1 S2 No murmur or added sounds. Abd: Non-tender. Bowel sounds . : Unremarkable. Renae . INVASIVE CARDIOVASCULAR TECHNOLOGIST/psychiatric: Alert and oriented, grossly intact. No obvious focal findings. Extremities: trace edema. Capillary refill < 3 seconds. Skin: unremarkable. Results: Decreased BG and not eating. D5/LR started. . A/P: Available chart/ vitals / labs / Images reviewed Video assessment done using teleICU camera, rest of exam as per RN Respiratory: Continue present management with NC. Wean as chiki. Monitor for increasing oxygenation needs. Critical Care: critically ill patient. Discussed with REJI Cruz. Asked RN to reach out to eICU if any questions or concerns later. Time spent with patient//coordination of care with other health professionals (mins):15 Sepsis Event Evaluation Sepsis Stage: Ruled Out Height, Weight, BMI Height: '" Weight: lbs. oz. kg; 34.37 BMI Method: Focused Exam Sepsis Stage: Ruled Out Exam Exam Patient acknowledged, consented, and participated in this virtual visit which was conducted using real time audio/video Vital Signs Date Time Temp Pulse Resp B/P (MAP) Pulse Ox O2 Delivery O2 Flow Rate FiO2 10/14/20 08:00 High Flow N/C 12.00 10/14/20 08:00 100 28 150/100 (110) 84 OxyMask 8.00 10/14/20 07:44 36.5 10/14/20 07:34 96 10/14/20 07:00 101 25 143/81 (100) 87 OxyMask 8.00 10/14/20 07:00 102 10/14/20 06:00 97 23 140/91 (107) 93 OxyMask 8.00 10/14/20 05:00 86 27 135/77 (96) 92 OxyMask 8.00 10/14/20 04:00 High Flow N/C 8.00 10/14/20 04:00 87 25 139/67 (91) 92 OxyMask 8.00 10/14/20 03:00 82 24 137/73 (94) 91 OxyMask 8.00 10/14/20 02:00 85 24 133/67 (89) 97 OxyMask 8.00 10/14/20 01:00 91 10/14/20 01:00 91 23 126/99 (108) 97 OxyMask 8.00 10/14/20 00:00 High Flow N/C 8.00 10/14/20 00:00 88 22 132/80 (97) 99 OxyMask 8.00 10/13/20 23:00 79 20 112/62 (79) 96 High Flow N/C 8.00 10/13/20 22:00 99 15 124/64 (84) 96 High Flow N/C 8.00 10/13/20 21:00 86 21 121/70 (87) 92 High Flow N/C 8.00 10/13/20 20:00 82 17 143/72 (95) 96 High Flow N/C 8.00 10/13/20 20:00 High Flow N/C 8.00 10/13/20 19:51 36.6 10/13/20 19:26 97 High Flow N/C 8.00 10/13/20 19:00 73 10/13/20 19:00 73 25 137/66 (89) 97 High Flow N/C 8.00 10/13/20 18:00 68 25 152/76 (101) 95 High Flow N/C 4.00 10/13/20 17:00 68 18 134/60 (84) 96 High Flow N/C 4.00 10/13/20 16:00 68 21 138/82 (100) 98 High Flow N/C 4.00 10/13/20 15:23 36.4 10/13/20 15:10 High Flow N/C 5.00 10/13/20 15:00 67 22 123/56 (78) 94 High Flow N/C 4.00 10/13/20 14:00 77 19 110/55 (73) 88 High Flow N/C 4.00 10/13/20 13:00 67 17 124/62 (82) 97 High Flow N/C 4.00 10/13/20 12:42 68 10/13/20 12:00 High Flow N/C 5.00 10/13/20 12:00 74 18 137/66 (89) 97 High Flow N/C 4.00 10/13/20 12:00 High Flow N/C 5.00 10/13/20 12:00 36.4 10/13/20 11:00 96 18 139/68 (91) 91 High Flow N/C 4.00 10/13/20 10:00 69 22 110/58 (75) 92 High Flow N/C 4.00 10/13/20 09:00 130/86 (101) High Flow N/C 4.00 I & O 10/14/20 06:59 Intake Total 475 ml Output Total 3150 ml Balance -2675 ml Height & Weight Height: '" Weight: lbs. oz. kg; 34.37 BMI Method: General Appearance: No Apparent Distress, Anxious, Chronically ill, Mild Distress, Obese HEENT: PERRL/EOMI, Pharynx Normal, Moist Mucous Membranes Neck: Full Range of Motion, Normal Inspection Respiratory: Chest Non Tender, Lungs Clear, Normal Breath Sounds, No Accessory Muscle Use, No Respiratory Distress Cardiovascular: Irregularly Irregular, Tachycardia Capillary Refill: Less Than 3 Seconds Gastrointestinal: normal bowel sounds, non tender, soft Extremity: Pedal Edema, Other (has chronic leg edema) Neurologic/Psychiatric: Alert, Oriented x3, Disoriented, Facial Droop (Left), Motor Weakness (Left-sided sporadic) Skin: Normal Color, Warm/Dry Results Lab Laboratory Tests 10/12/20 17:30 10/13/20 06:12 10/14/20 03:53 Assessment/Plan Assessment/Plan see free text. Critical Care: Critically Ill Patient Time spent on discussion(mins): 0 DANIEL MARTIN MD Oct 14, 2020 08:59
[2020-10-14 10:26] LABS: ABG BASE EXCESS 6.4 MMOL/L (-2.5-2.5); ABG OXYGEN SATURATION 98 % (94-100); ABG PCO2 55 MMHG (35-45); ABG PH 7.37 (7.37-7.43); ABG PO2 104 MMHG (79-93); ABG TCO2 33.1 MMOL/L (21.0-31.0)
[2020-10-14 10:27] LABS: ALLENS TEST YES-POS; INSPIRED O2 12 L; PATIENT TEMP 37.4; VENTILATOR NO
[2020-10-14] MEDS: NYSTATIN CREAM (MYCOSTATIN) 30 GM TUBE TP SCH ×3 (10:29→20:17)
[2020-10-14] MEDS: TRIAMCINOLONE 0.5% CR (KENALOG) 15 GM TUBE TOP SCH ×2 (10:29→20:17)
[2020-10-14] MEDS: ENOXAPARIN 80 MG/0.8 ML (LOVENOX) SYR SC SCH ×2 (10:30→21:56)
[2020-10-14] MEDS: dilTIAZem120 MG (CARDIZEM CD) CAP PO SCH (10:59)
[2020-10-14] MEDS: meTOprolol SUCCINATE 100 MG (TOPROL XL) TAB PO SCH (10:59)
[2020-10-14] MEDS: ASPIRIN 81 MG CHEW (CHILDREN'S ASA) PO SCH (10:59)
--- NOTE | 2020-10-14 11:44 | Cardiology Progress Note ---
Subjective Date Seen by Provider: Oct 14, 2020 Time Seen by Provider: 11:40 Subjective/Events-last exam Patient was seen at bedside, laying down comfortably, had an event yesterday with facial droop and weakness, still having mild facial droop and left-sided weakness Review of Systems General: No Chills, No Night Sweats; Fatigue; No Malaise, No Appetite, No Other HEENT: No Head Aches, No Visual Changes, No Eye Pain, No Ear Pain, No Dysphasia, No Sinus Congestion, No Post Nasal Drip, No Sore Throat, No Other Pulmonary: No Dyspnea, No Cough, No Pleuritic Chest Pain, No Other Cardiovascular: No: Chest Pain, Palpitations, Orthopnea, Paroxysmal Noc. Dyspnea, Edema, Lt Headedness, Other Objective-Cardiology Exam Last Set of Vital Signs Vital Signs 10/14/20 10/14/20 07:44 11:00 Temp 36.5 Pulse 101 Resp 18 B/P (MAP) 151/87 (108) Pulse Ox 95 O2 Delivery High Flow N/C O2 Flow Rate 15.00 I&O Intake and Output 10/14/20 00:00 Intake Total 675 ml Output Total 2975 ml Balance -2300 ml Intake Oral 675 ml Output Urine Total 2975 ml # Voids 1 # Bowel Movements 1 General: Alert, Oriented X3, Cooperative HEENT: Atraumatic, PERRLA Neck: Supple, No JVD, No Thyromegaly Lungs: Clear to Auscultation, Normal Air Movement Heart: Normal S1, Normal S2, No Murmurs, Other (Atrial fibrillation) Abdomen: Normal Bowel Sounds, Soft, No Tenderness, No Hepatosplenomegaly, No Masses Extremities: No Clubbing, No Cyanosis, No Edema, Normal Pulses, No Tenderness/Swelling Skin: No Rashes, No Breakdown, No Significant Lesion Neuro: Other (Left sided weakness and facial droop) Psych/Mental Status: Mental Status NL, Mood NL Results Lab Laboratory Tests 10/14/20 03:53 A/P-Cardiology Admission Diagnosis Atrial flutter Type II myocardial infarction Coronary artery disease Palpitation Assessment/Plan Acute CVA occurred on October 13, 2020, had a CT angiogram of the head, receiving Lovenox. Still having some residual facial droop and left upper extremity weakness. Managed by primary care team Atrial flutter with rapid ventricular response, started on Cardizem drip, it was stopped due to hypotension, currently on Cardizem CD 120 and Toprol. I will increase Cardizem and evaluate tolerance and response [id number] score of 8, yearly risk of stroke without oral anticoagulation is 9.8%. Currently on Lovenox 1 mg/kg twice daily, I will switch her to Eliquis on ce clinically stable Elevated troponin, probably type II myocardial infarction secondary to tachyca rdia, underlying coronary artery disease cannot be entirely excluded, discussed the possibility of cardiac catheterization patient has refused any cardiac catheterization in the past and still refusing on this admission. Coronary artery disease, history of non-ST elevation myocardial infarction in September 2019 and refused cardiac catheterization, had a history of CABG in 2010 using COLES to LAD, vein graft to the right coronary artery and vein graft to the circumflex artery. No recent cardiac work-up, has been following with Dr. Matias did not see him for a while Congestive heart failure, last echo was done in September 2019 showing ejection fraction 55 to 65%, moderately dilated left atrium, mild to moderate tricuspid regurgitation, left ventricular diastolic dysfunction, currently not in heart failure Echocardiogram was done on October 13, 2020 showing normal LV size, EF 55 to 65%, left atrial dilatation, calcification on the mitral annulus, mild to moderate mitral regurgitation, mild to moderate tricuspid regurgitation, PA pressure 30 mmHg. Continue to monitor History of chest pain in the past, no recent episodes of chest pain Hypertension, monitor tolerance and response to the medication changes Hyperlipidemia, maintained on statin, continue to monitor Diabetes mellitus, followed and managed by primary care physician ANTHONY NOVOA MD Oct 14, 2020 11:44
[2020-10-14] MEDS: D5 LR IV SOLUTION 1,000 ML IV SCH (11:49)
--- NOTE | 2020-10-14 12:44 | Physical Therapy Daily Note ---
PT Daily Note-Current Subjective Patient in bed pre tx, agrees to PT, has no complaints of pain Appearance Patient in bed post tx with nurse call, phone, tray, visitor in room. Mental Status Patient Orientation: Person, Confused Attachments: Oxygen, Renae Catheter, IV Transfers SCALE: Activities may be completed with or without assistive devices. 5-Spummhafet-spbkhog completes the activity by him/herself with no assistance from a helper. 5-Set-up or Clean-up Assistance-helper sets up or cleans up; patient completes activity. Finley assists only prior to or following the activity. 4-Supervision or Touching Assistance-helper provides verbal cues and/or touching/steadying and/or contact guard assistance as patient completes activity. Assistance may be provided throughout the activity or intermittently. 3-Partial/Moderate Assistance-helper does LESS THAN HALF the effort. Finley lifts, holds or supports trunk or limbs, but provides less than half the effort. 2-Substantial/Maximal Assistance-helper does MORE THAN HALF the effort. Finley lifts or holds trunk or limbs and provides more than half the effort. 9-Jcmzydalp-sdnwbn does ALL the effort. Patient does none of the effort to complete the activity. Or, the assistance of 2 or more helpers is required for the patient to complete the activity. If activity was not attempted, code reason: 7-Patient Refused. 9-Not Applicable-not attempted and the patient did not perform the activity before the current illness, exacerbation or injury. 10-Not Attempted due to Environmental Limitations-(lack of equipment, weather restraints, etc.). 88-Not Attempted due to Medical Conditions or Safety Concerns. Roll Left & Right (QC): 2 Sit to Lying (QC): 1 Lying to Sitting/Side of Bed(Q: 2 Sit to Stand (QC): 3 Gait Training Distance: 3' Gait Assistive Device: FWW Attempted to ambulate to a recliner but patient was having more trouble stepping with her left leg and her left hand had trouble gripping the walker. Patient had a lot of trouble understanding directions. She took a couple of steps forward and then back and then sidestepped to the head of the bed. Steps were only a few inches at a time. Leaned more to the left side too. Exercises Supine Ex: Ankle pumps, Quad Set Supine Reps: 20 Treatments bed mobility and transfers, ambulation, LE strengthening Assessment Current Status: Poor Progress increased weakness on the left side, more confusion PT Building Code Inspector Goals [facility] Goals PT Building Code Inspector Goals Time Frame: Oct 20, 2020 Roll Left & Right (QC): 3 Sit to Lying (QC): 3 Lying-Sitting on Side/Bed(QC): 3 Sit to Stand (QC): 4 Chair/[id number]-[id number] Xfer(QC): 4 Walk 10 feet (QC): 4 Walk 50ft with 2 Turns (QC): 4 PT Plan Problem List Problem List: Activity Tolerance, Functional Strength, Safety, Balance, Gait, Transfer, Bed Mobility, ROM Treatment/Plan Treatment Plan: Continue Plan of Care Treatment Plan: Bed Mobility, Education, Functional Activity Chip, Functional Strength, Gait, Safety, Therapeutic Exercise, Transfers Treatment Duration: Oct 20, 2020 Frequency: 6 times per week Estimated Hrs Per Day: .25 hour per day Patient and/or Family Agrees t: Yes Safety Risks/Education Patient Education: Transfer Techniques, Correct Positioning, Safety Issues Teaching Recipient: Patient Teaching Methods: Demonstration, Discussion Response to Teaching: Reinforcement Needed Time/GCodes Time In: 1219 Time Out: 1235 Total Billed Treatment Time: 16 Total Billed Treatment 1 visit FA ISABEL WHEATLEY PT Oct 14, 2020 12:44
--- NOTE | 2020-10-14 13:55 | Progress Note ---
DESMOND LEWIS 10/14/20 1355: Subjective Date Seen by a Provider: Oct 14, 2020 Time Seen by a Provider: 10:30 Subjective/Events-last exam Pt reported feeling better and denies any pain except a sore throat from her Covid test (negative). NIH stroke scale scored 11 due to muscle weakness and drift favoring left side. Mental status improved, but still presents with a left sided facial droop and slurred speech. Pt still denies having had a stroke. Review of Systems General: Chills, Fatigue HEENT: No Eye Pain, No Ear Pain; Sore Throat Pulmonary: No Cough Cardiovascular: No: Chest Pain, Edema, Lt Headedness Gastrointestinal: No: Nausea, Vomiting, Diarrhea Genitourinary: No Dysuria, No Hematuria Musculoskeletal: No: neck pain, shoulder pain, arm pain Neurological: Weakness, Change in speech Objective Exam Last Set of Vital Signs Vital Signs Date Time Temp Pulse Resp B/P (MAP) Pulse Ox O2 Delivery O2 Flow Rate FiO2 10/14/20 13:00 96 25 146/88 (107) 95 High Flow N/C 15.00 10/14/20 07:44 36.5 Capillary Refill : Less Than 3 Seconds I&O Intake and Output 10/14/20 00:00 Intake Total 675 ml Output Total 2975 ml Balance -2300 ml Intake Oral 675 ml Output Urine Total 2975 ml # Voids 1 # Bowel Movements 1 General: Oriented X3, Cooperative, Severe Distress HEENT: Atraumatic, PERRLA Neck: Supple, No Thyromegaly Lungs: Clear to Auscultation, Normal Air Movement Abdomen: Soft, No Tenderness Extremities: No Cyanosis, Other (Extremities cool to the touch) Skin: No Rashes, No Significant Lesion Neuro: Sensation Intact Results Lab Laboratory Tests 10/13/20 15:47: Glucometer 72 10/13/20 20:36: Glucometer 71 10/14/20 03:53: White Blood Count 5.6, Red Blood Count 4.49, Hemoglobin 12.6, Hematocrit 41, Mean Corpuscular Volume 90, Mean Corpuscular Hemoglobin 28, Mean Corpuscular Hemoglobin Concent 31L, Red Cell Distribution Width 15.6H, Platelet Count 196, Mean Platelet Volume 9.2, Immature Granulocyte % (Auto) 0, Neutrophils (%) (Auto) 68, Lymphocytes (%) (Auto) 18, Monocytes (%) (Auto) 11, Eosinophils (%) (Auto) 2, Basophils (%) (Auto) 1, Neutrophils # (Auto) 3.8, Lymphocytes # (Auto) 1.0, Monocytes # (Auto) 0.6, Eosinophils # (Auto) 0.1, Basophils # (Auto) 0.0, Immature Granulocyte # (Auto) 0.0, Sodium Level 147H, Potassium Level 3.5L, Chloride Level 104, Carbon Dioxide Level 29, Anion Gap 14, Blood Urea Nitrogen 21H, Creatinine 1.14, Estimat Glomerular Filtration Rate 45, BUN/Creatinine Ratio 18, Glucose Level 101, Calcium Level 9.0, Corrected Calcium 9.5, Phosphorus Level 3.9, Magnesium Level 1.9, Total Bilirubin 0.8, Aspartate Amino Transf (AST/SGOT) 19, Alanine Aminotransferase (ALT/SGPT) 14, Alkaline Phosphatase 42, Troponin I 0.036H, Total Protein 6.4, Albumin 3.4 10/14/20 10:12: Glucometer 134H 10/14/20 10:17: Blood Gas Puncture Site RT RAD, Blood Gas Patient Temperature 37.4, Arterial Blood pH 7.37, Arterial Blood Partial Pressure CO2 55H, Arterial Blood Partial Pressure O2 104H, Arterial Blood HCO3 31H, Arterial Blood Total CO2 33.1H, Arterial Blood Oxygen Saturation 98, Arterial Blood Base Excess 6.4H, Bacilio Test YES-POS, Blood Gas Ventilator Setting NO, Blood Gas Inspired Oxygen 12 L Microbiology 10/12/20 MRSA Screen - Final, Complete MRSA not isolated Assessment/Plan Assessment/Plan Assess & Plan/Chief Complaint Atrial fibrillation with rapid ventricular response had previous episode of A. 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 History of GI bleed Chronic kidney disease stage II CAD previous CABG Suspect untreated obstructive sleep apnea Noncompliance with medical recommendations TELMA MARTINEZ DO 10/15/20 0554: Subjective Subjective/Events-last exam Patient doing really well moving down to fourth floor Updated brother at the bedside about her stroke status Inpatient rehab soon Dysphagia is resolved with thickened liquids Hypoxia is resolved with nasal cannula through her mouth Review of Systems General: Fatigue Neurological: Weakness Objective Exam General: Alert, Oriented X3, Cooperative, No Acute Distress Lungs: Clear to Auscultation Heart: Regular Rate Psych/Mental Status: Mental Status NL Assessment/Plan Assessment/Plan Assess & Plan/Chief Complaint Assessment: Acute CVA not a TPA candidate Atrial fibrillation with rapid ventricular response Presumed embolus in atrium Hypertension Diabetes CAD previous bypass Hyperlipidemia Chronic lower extremity edema Severe osteoarthritis Plan: Transfer to floor Inpatient rehab Supervisory-Addendum Brief Verification & Attestation Participated in pt care: history, MDM, physical Personally performed: exam, history, MDM, supervision of care Care discussed with: Medical Student Procedures: n/a Results interpretation: Verified all documentation Verification and Attestation of Medical Student E/M Service A medical student performed and documented this service in my presence. I reviewed and verified all information documented by the medical student and made modifications to such information, when appropriate. I personally performed the physical exam and medical decision making. Telma Martinez Oct 15, 2020,05:52 DESMOND LEWIS Oct 14, 2020 13:55 TELMA MARTINEZ DO Oct 15, 2020 05:54
--- NOTE | 2020-10-14 15:01 | Occupational Ther Daily Note ---
OT Current Status-Daily Note Subjective Pt laying in bed, agreeable to OT tx. Mental Status/Objective Patient Orientation: Person, Confused Attachments: Renae Catheter, IV, Oxygen ADL-Treatment Therapy Code Descriptions/Definitions Functional [place]arton Measure: 0=Not Assessed/NA 4=Minimal Assistance 1=Total Assistance 5=Supervision or Setup 2=Maximal Assistance 6=Modified [place] 3=Moderate Assistance 7=Complete IndependenceSCALE: Activities may be completed with or without assistive devices. 0-Eilfbkftjb-[id number] completes the activity by him/herself with no assistance from a helper. 5-Set-up or Clean-up Assistance-helper sets up or cleans up; patient completes activity. Dozier assists only prior to or following the activity. 4-Supervision or Touching Assistance-helper provides verbal cues and/or t ouching/steadying and/or contact guard assistance as patient completes activity. Assistance may be provided throughout the activity or intermittently. 3-Partial/Moderate Assistance-helper does LESS THAN HALF the effort. Dozier lifts, holds or supports trunk or limbs, but provides less than half the effort. 2-Substantial/Maximal Assistance-helper does MORE THAN HALF the effort. Dozier lifts or holds trunk or limbs and provides more than half the effort. 8-Vhqfeeiov-azvjyz does ALL the effort. Patient does none of the effort to complete the activity. Or, the assistance of 2 or more helpers is required for the patient to complete the activity. If activity was not attempted, code reason: 7-Patient Refused. 9-Not Applicable-not attempted and the patient did not perform the activity before the current illness, exacerbation or injury. 10-Not Attempted due to Environmental Limitations-(lack of equipment, weather restraints, etc.). 88-Not Attempted due to Medical Conditions or Safety Concerns. Toileting Hygiene (QC): 1 (assist to wash buttocks in stand) Other Treatment Pt laying in bed, transferred supine to sit EOB, max A. OT assisted pt with washing buttocks due to smear of BM. Pt stood at EOB and attempted to transfer to recliner but had difficulty with moving L leg and keeping L hand on walker. Pt also had difficulty following directions. Pt able to take a couple steps forward and back, then side step towards HOB, max verbal cues and only able to step a few inches at a time. Pt leaning towards L during mobility. Pt returned to EOB, assisted supine, assist x2. Education OT Patient Education: Correct positioning, Modified ADL techniques, Progress toward Goal/Update tx plan, Purpose of tx/functional activities, Rehab process Teaching Recipient: Patient Teaching Methods: Discussion Response to Teaching: Reinforcement Needed OT Clinical Engineer Goals Clinical Engineer Goals Time Frame: Oct 28, 2020 Eating (QC): 6 Oral Hygiene (QC): 6 Toileting Hygiene (QC): 4 Shower/Bathe Self (QC): 4 Upper Body Dressing (QC): 5 Lower Body Dressing (QC): 4 On/Off Footwear (QC): 3 Additional Goals: 1-Demonstrate ADL Tasks, 2-Verbalize Understanding, 3- ImproveStrength/Chip 1=Demonstrate adherence to instructed precautions during ADL tasks. 2=Patient will verbalize/demonstrate understanding of assistive devices/ modifications for ADL. 3=Patient will improve strength/tolerance for activity to enable patient to perform ADL's. OT Education/Plan Problem List/Assessment Assessment: Decreased Activ Tolerance, Decreased Safety Aware, Decreased UE Strength, Impaired Bed Mobility, Impaired Cognition, Impaired Funct Balance, Impaired I ADL's, Impaired Self-Care Skills Discharge Recommendations Plan/Recommendations: Continue POC Treatment Plan/Plan of Care Patient would benefit from OT for education, treatment and training to promote independence in ADL's, mobility, safety and/or upper extremity function for ADL's. Plan of Care: ADL Retraining, Functional Mobility, UE Funct Exercise/Act Treatment Duration: Oct 28, 2020 Frequency: 5 times per week Estimated Hrs Per Day: .25 hour per day Rehab Potential: Fair Time/GCodes Start Time: 12:19 Stop Time: 12:35 Total Time Billed (hr/min): 16 Billed Treatment Time 1, TOM KNOX OT Oct 14, 2020 15:01
[2020-10-14] MEDS ORDERED: dilTIAZem120 MG (CARDIZEM CD) CAP PO SCH (21:00)
[2020-10-15 00:07] VITALS: BP 135/80
[2020-10-15 04:00] VITALS: BP 139/88
[2020-10-15] MEDS: inSUlin ASPART (NovoLOG) 1 UNIT/0.01 ML (CHARGE PER UNIT) SC SCH ×4 (05:50→21:50)
[2020-10-15 06:46] LABS: BASOPHILS % (AUTO) 0 % (0-10); EOSINOPHILS # (AUTO) 0.1 10^3/uL (0.0-0.3); EOSINOPHILS % (AUTO) 1 % (0-10); HEMATOCRIT 43 % (35-52); HEMOGLOBIN 12.9 g/dL (11.5-16.0); LYMPHOCYTES # (AUTO) 0.9 10^3/uL (1.0-4.0); LYMPHOCYTES % (AUTO) 13 % (12-44); MEAN CORPUSCULAR HEMOGLOBIN 27 pg (25-34); MEAN CORPUSCULAR HGB CONC 30 g/dL (32-36); MEAN CORPUSCULAR VOLUME 91 fL (80-99); MEAN PLATELET VOLUME 9.4 fL (9.0-12.2); MONOCYTES # (AUTO) 0.9 10^3/uL (0.0-1.0); MONOCYTES % (AUTO) 12 % (0-12); NEUTROPHILS # (AUTO) 5.3 10^3/uL (1.8-7.8); NEUTROPHILS % (AUTO) 74 % (42-75); PLATELET COUNT 188 10^3/uL (130-400); WHITE BLOOD COUNT 7.2 10^3/uL (4.3-11.0)
[2020-10-15 06:57] LABS: ALBUMIN 3.5 GM/DL (3.2-4.5)
[2020-10-15 06:58] LABS: POTASSIUM 3.8 MMOL/L (3.6-5.0)
[2020-10-15 06:59] LABS: CALCIUM 9.2 MG/DL (8.5-10.1)
[2020-10-15 07:00] LABS: TOTAL PROTEIN 6.7 GM/DL (6.4-8.2)
[2020-10-15 07:02] LABS: BILIRUBIN,TOTAL 1.2 MG/DL (0.1-1.0)
[2020-10-15 07:03] LABS: CREATININE SERUM 1.07 MG/DL (0.60-1.30)
--- NOTE | 2020-10-15 08:07 | Diagnostic Imaging Report ---
INDICATION: Follow up infiltrates EXAMINATION: Chest 10/15/2020 COMPARISON: 10/14/2020 FINDINGS: The heart is stable. Pulmonary vasculature is congested. There are increased interstitial markings throughout both lungs consistent with edema. Scattered bilateral infiltrates stable. No effusions. No pneumothorax. Sternotomy wires and mediastinal clips stable. IMPRESSION: 1. Pulmonary edema with scattered bilateral infiltrates fairly stable in appearance. Dictated by: Dictated on workstation # [id number]
[2020-10-15 08:38] VITALS: BP 163/96
[2020-10-15] MEDS ORDERED: ASPIRIN E.C. 81 MG (ECOTRIN) TAB PO SCH (09:00)
[2020-10-15] MEDS: meTOprolol SUCCINATE 100 MG (TOPROL XL) TAB PO SCH (10:19)
[2020-10-15] MEDS: ASPIRIN 81 MG CHEW (CHILDREN'S ASA) PO SCH (10:19)
[2020-10-15] MEDS: FENOFIBRATE, MICRO 67 MG (LOFIBRA) CAPSULE PO SCH (10:19)
[2020-10-15] MEDS: TRIAMCINOLONE 0.5% CR (KENALOG) 15 GM TUBE TOP SCH ×2 (10:20→21:51)
[2020-10-15] MEDS: NYSTATIN CREAM (MYCOSTATIN) 30 GM TUBE TP SCH ×3 (10:20→21:51)
[2020-10-15] MEDS: ENOXAPARIN 80 MG/0.8 ML (LOVENOX) SYR SC SCH ×2 (10:21→21:51)
[2020-10-15] MEDS ORDERED: FUROSEMIDE 40 MG/4 ML INJ (LASIX) IVP ONE ×2 (11:00→12:15)
--- NOTE | 2020-10-15 11:24 | Progress Note ---
Subjective Date Seen by a Provider: Oct 15, 2020 Time Seen by a Provider: 10:00 Subjective/Events-last exam Patient not well enough or stable to go to inpatient rehab Heart rate 120 Blood pressure 160 We will give Lasix 40 mg IV x1 now for volume overload Renae catheter still in Bowels are not moving so will give laxatives Pain control for needs will be initiated Left-sided weakness noted Review of Systems General: Fatigue, Malaise Pulmonary: Dyspnea Gastrointestinal: Constipation Objective Exam Last Set of Vital Signs Vital Signs Date Time Temp Pulse Resp B/P (MAP) Pulse Ox O2 Delivery O2 Flow Rate FiO2 10/15/20 08:38 38.0 90 26 163/96 (118) 93 NIV Bilevel 45.00 10/14/20 21:50 45 Capillary Refill : Less Than 3 Seconds I&O Intake and Output 10/14/20 23:59 Intake Total 1315 ml Output Total 850 ml Balance 465 ml Intake Oral 115 ml IV Total 1200 ml Output Urine Total 850 ml # Bowel Movements 1 General: Alert, Oriented X3, Cooperative, No Acute Distress Lungs: Clear to Auscultation, Normal Air Movement Heart: Other (Tachycardic) Psych/Mental Status: Mental Status NL Results Lab Laboratory Tests 10/14/20 15:45: Glucometer 196H 10/14/20 20:47: Glucometer 215H 10/15/20 05:33: Glucometer 160H 10/15/20 06:31: White Blood Count 7.2, Red Blood Count 4.74, Hemoglobin 12.9, Hematocrit 43, Mean Corpuscular Volume 91, Mean Corpuscular Hemoglobin 27, Mean Corpuscular Hemoglobin Concent 30L, Red Cell Distribution Width 15.5H, Platelet Count 188, Mean Platelet Volume 9.4, Immature Granulocyte % (Auto) 0, Neutrophils (%) (Auto) 74, Lymphocytes (%) (Auto) 13, Monocytes (%) (Auto) 12, Eosinophils (%) (Auto) 1, Basophils (%) (Auto) 0, Neutrophils # (Auto) 5.3, Lymphocytes # (Auto) 0.9L, Monocytes # (Auto) 0.9, Eosinophils # (Auto) 0.1, Basophils # (Auto) 0.0, Immature Granulocyte # (Auto) 0.0, Sodium Level 149H, Potassium Level 3.8, Chloride Level 105, Carbon Dioxide Level 33H, Anion Gap 11, Blood Urea Nitrogen 19H, Creatinine 1.07, Estimat Glomerular Filtration Rate 49, BUN/Creatinine Ratio 18, Glucose Level 147H, Calcium Level 9.2, Corrected Calcium 9.6, Total Bilirubin 1.2H, Aspartate Amino Transf (AST/SGOT) 16, Alanine Aminotransferase (ALT/SGPT) 13, Alkaline Phosphatase 42, Total Protein 6.7, Albumin 3.5 Microbiology 10/12/20 MRSA Screen - Final, Complete MRSA not isolated Assessment/Plan Assessment/Plan Assess & Plan/Chief Complaint Assessment: Atrial fibrillation with rapid ventricular response had previous episode of A. 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 History of GI bleed Chronic kidney disease stage II CAD previous CABG Suspect untreated obstructive sleep apnea Noncompliance with medical recommendations Plan: Lovenox therapeutic dose twice daily PT and OT Rehab eval Appreciate cardiology Supportive care Oxygen supplementation 10/15/2020: Patient not well enough to go to rehab Monitor volume overload heart rate and blood pressure Bowel regimen Pain control Diagnosis/Problems Diagnosis/Problems (1) CVA (cerebral vascular accident) (2) Atrial fibrillation with rapid ventricular response (3) Acute on chronic heart failure Status: Acute (4) Hypertension (5) Hyperlipidemia (6) Respiratory distress (7) Diabetes (8) CAD (coronary artery disease) (9) Type 2 AMI (acute myocardial infarction) (10) Arthritis (11) Hx of CABG KEILA MARTINEZ DO Oct 15, 2020 11:23
[2020-10-15 11:39] VITALS: BP 158/76
--- NOTE | 2020-10-15 12:28 | Cardiology Progress Note ---
Subjective Date Seen by Provider: Oct 15, 2020 Time Seen by Provider: 12:26 Subjective/Events-last exam Patient was seen at bedside, becoming more dyspneic, requiring higher oxygen, appears to be in pulmonary edema Review of Systems General: No Chills, No Night Sweats; Fatigue, Malaise; No Appetite, No Other HEENT: No Head Aches, No Visual Changes, No Eye Pain, No Ear Pain, No Dysphasia, No Sinus Congestion, No Post Nasal Drip, No Sore Throat, No Other Pulmonary: Dyspnea; No Cough, No Pleuritic Chest Pain, No Other Cardiovascular: No: Chest Pain, Palpitations, Orthopnea, Paroxysmal Noc. Dyspnea, Edema, Lt Headedness, Other Objective-Cardiology Exam Last Set of Vital Signs Vital Signs 10/14/20 10/15/20 21:50 11:39 Temp 37.3 Pulse 94 Resp 26 B/P (MAP) 158/76 (103) Pulse Ox 98 O2 Delivery High Flow N/C O2 Flow Rate 8.00 FiO2 45 I&O Intake and Output 10/14/20 23:59 Intake Total 1315 ml Output Total 850 ml Balance 465 ml Intake Oral 115 ml IV Total 1200 ml Output Urine Total 850 ml # Bowel Movements 1 General: Alert, Oriented X3, Cooperative, No Acute Distress HEENT: Atraumatic, PERRLA Neck: Supple, No Thyromegaly Lungs: Normal Air Movement, Other (Bilateral rhonchi) Heart: Regular Rate Abdomen: Soft, No Tenderness Extremities: No Cyanosis, Other (Extremities cool to the touch) Skin: No Rashes, No Significant Lesion Neuro: Sensation Intact Psych/Mental Status: Mental Status NL Results Lab Laboratory Tests 10/15/20 06:31 A/P-Cardiology Admission Diagnosis Atrial flutter Type II myocardial infarction Coronary artery disease Palpitation Assessment/Plan Acute CVA occurred on October 13, 2020, had a CT angiogram of the head, receiving Lovenox. Still having some residual facial droop and left upper extremity weakness. Managed by primary care team Acute respiratory failure, flash pulmonary edema, probably secondary to atrial fibrillation/flutter with rapid ventricular response, started on Lasix IV and will evaluate tolerance and response, continue on oxygen supplement Atrial flutter with rapid ventricular response, heart rate is better controlled. Continue to monitor [id number] score of 8, yearly risk of stroke without oral anticoagulation is 9.8%. Started on Eliquis, tolerating it well. Continue to monitor Elevated troponin, probably type II myocardial infarction secondary to tachycardia, underlying coronary artery disease cannot be entirely excluded, discussed the possibility of cardiac catheterization patient has refused any cardiac catheterization in the past and still refusing on this admission. Coronary artery disease, history of non-ST elevation myocardial infarction in September 2019 and refused cardiac catheterization, had a history of CABG in 2010 using COLES to LAD, vein graft to the right coronary artery and vein graft to the circumflex artery. No recent cardiac work-up, has been following with Dr. Matias did not see him for a while Congestive heart failure, last echo was done in September 2019 showing ejection fraction 55 to 65%, moderately dilated left atrium, mild to moderate tricuspid regurgitation, left ventricular diastolic dysfunction, currently not in heart failure Echocardiogram was done on October 13, 2020 showing normal LV size, EF 55 to 65%, left atrial dilatation, calcification on the mitral annulus, mild to moderate mitral regurgitation, mild to moderate tricuspid regurgitation, PA pressure 30 mmHg. Continue to monitor History of chest pain in the past, no recent episodes of chest pain Hypertension, monitor tolerance and response to the medication changes Hyperlipidemia, maintained on statin, continue to monitor Diabetes mellitus, followed and managed by primary care physician ANTHONY NOVOA MD Oct 15, 2020 12:28
[2020-10-15] MEDS ORDERED: ONDANSETRON 4 MG/2 ML (SDV) Z0FRAN IVP PRN (13:45)
[2020-10-15] MEDS ORDERED: CALCIUM CARBONATE 500 MG (TUMS) TAB.CHEW PO PRN (13:45)
[2020-10-15] MEDS ORDERED: diphenhydrAMINE 25 MG TAB (BENADRYL) PO PRN (13:45)
[2020-10-15] MEDS ORDERED: ALPRAZolam 0.25 MG (XANAX) TAB PO PRN (13:45)
[2020-10-15] MEDS ORDERED: MELATONIN 3 MG TABLET PO PRN (13:45)
[2020-10-15] MEDS: DOCUSATE SODIUM 100 MG (COLACE) CAP PO SCH ×2 (14:09→21:49)
[2020-10-15] MEDS: SENNA W/DOCUSATE (SENOKOT S) TABLET PO SCH ×2 (14:23→21:50)
[2020-10-15] MEDS: HYDROcodone/APAP 5 MG/325 MG (LORTAB) TAB PO PRN ×2 (14:23→21:49)
[2020-10-15] MEDS: LACTULOSE SYRUP 10GM/15ML (ENULOSE) 30ML UDC PO SCH ×2 (14:24→21:49)
[2020-10-15 16:00] VITALS: BP 119/56
[2020-10-15 20:00] VITALS: BP 125/69
[2020-10-16] VITALS (8 sets, daily range): BP systolic 112–134; BP diastolic 56–69
[2020-10-16] MEDS: HYDROcodone/APAP 5 MG/325 MG (LORTAB) TAB PO PRN ×4 (04:07→21:59)
[2020-10-16 05:21] LABS: BASOPHILS % (AUTO) 0 % (0-10); EOSINOPHILS % (AUTO) 1 % (0-10); HEMATOCRIT 39 % (35-52); HEMOGLOBIN 11.7 g/dL (11.5-16.0); LYMPHOCYTES % (AUTO) 14 % (12-44); MEAN CORPUSCULAR HEMOGLOBIN 28 pg (25-34); MEAN CORPUSCULAR HGB CONC 30 g/dL (32-36); MEAN CORPUSCULAR VOLUME 91 fL (80-99); MEAN PLATELET VOLUME 9.7 fL (9.0-12.2); MONOCYTES # (AUTO) 0.8 10^3/uL (0.0-1.0); MONOCYTES % (AUTO) 11 % (0-12); NEUTROPHILS # (AUTO) 5.6 10^3/uL (1.8-7.8); NEUTROPHILS % (AUTO) 75 % (42-75); PLATELET COUNT 184 10^3/uL (130-400); WHITE BLOOD COUNT 7.4 10^3/uL (4.3-11.0)
[2020-10-16 05:41] LABS: POTASSIUM 3.4 MMOL/L (3.6-5.0)
[2020-10-16 05:42] LABS: CALCIUM 8.9 MG/DL (8.5-10.1)
[2020-10-16 05:45] LABS: BILIRUBIN,TOTAL 1.1 MG/DL (0.1-1.0)
[2020-10-16 05:47] LABS: CREATININE SERUM 1.09 MG/DL (0.60-1.30)
[2020-10-16] MEDS: inSUlin ASPART (NovoLOG) 1 UNIT/0.01 ML (CHARGE PER UNIT) SC SCH ×4 (06:48→21:59)
[2020-10-16] MEDS: FENOFIBRATE, MICRO 67 MG (LOFIBRA) CAPSULE PO SCH (08:56)
[2020-10-16] MEDS: SENNA W/DOCUSATE (SENOKOT S) TABLET PO SCH ×2 (08:56→21:59)
[2020-10-16] MEDS: meTOprolol SUCCINATE 100 MG (TOPROL XL) TAB PO SCH (08:56)
[2020-10-16] MEDS: ASPIRIN 81 MG CHEW (CHILDREN'S ASA) PO SCH (08:56)
[2020-10-16] MEDS: LACTULOSE SYRUP 10GM/15ML (ENULOSE) 30ML UDC PO SCH ×2 (08:57→21:59)
[2020-10-16] MEDS: DOCUSATE SODIUM 100 MG (COLACE) CAP PO SCH ×2 (08:57→21:58)
[2020-10-16] MEDS: NYSTATIN CREAM (MYCOSTATIN) 30 GM TUBE TP SCH ×3 (08:57→22:00)
[2020-10-16] MEDS: TRIAMCINOLONE 0.5% CR (KENALOG) 15 GM TUBE TOP SCH ×2 (08:57→22:00)
[2020-10-16] MEDS ORDERED: FUROSEMIDE 40 MG/4 ML INJ (LASIX) IVP SCH (09:00)
[2020-10-16] MEDS: ENOXAPARIN 80 MG/0.8 ML (LOVENOX) SYR SC SCH ×2 (11:36→22:00)
--- NOTE | 2020-10-16 12:02 | Cardiology Progress Note ---
Subjective Date Seen by Provider: Oct 16, 2020 Time Seen by Provider: 12:00 Subjective/Events-last exam Patient was seen at bedside, laying down comfortably, feeling better today. Still requiring high dose of oxygen supplement Review of Systems General: No Chills, No Night Sweats; Fatigue, Malaise; No Appetite, No Other HEENT: No Head Aches, No Visual Changes, No Eye Pain, No Ear Pain, No Dysphasia, No Sinus Congestion, No Post Nasal Drip, No Sore Throat, No Other Pulmonary: Dyspnea; No Cough, No Pleuritic Chest Pain, No Other Cardiovascular: No: Chest Pain, Palpitations, Orthopnea, Paroxysmal Noc. Dyspnea, Edema, Lt Headedness, Other Objective-Cardiology Exam Last Set of Vital Signs Vital Signs 10/16/20 10/16/20 09:00 11:26 Temp 36.9 Pulse 70 Resp 18 B/P (MAP) 131/65 (87) Pulse Ox 96 O2 Delivery NIV Bilevel O2 Flow Rate 45.00 FiO2 45 I&O Intake and Output 10/16/20 00:00 Intake Total 290 ml Output Total 1775 ml Balance -1485 ml Intake Oral 290 ml Output Urine Total 1775 ml General: Alert, Oriented X3, Cooperative, No Acute Distress HEENT: Atraumatic, PERRLA Neck: Supple, No Thyromegaly Lungs: Normal Air Movement, Other (Bilateral rhonchi) Heart: Normal S1, Normal S2, Other (Tachycardic) Abdomen: Soft, No Tenderness Extremities: No Cyanosis, Other (Extremities cool to the touch) Skin: No Rashes, No Significant Lesion Neuro: Normal Speech, Sensation Intact Psych/Mental Status: Mental Status NL Results Lab Laboratory Tests Test 10/15/20 16:36 10/15/20 20:18 10/16/20 06:37 10/16/20 11:23 Range/Units Glucometer 155 H 119 H 111 H 186 H 70-110 MG/DL A/P-Cardiology Admission Diagnosis Atrial flutter Type II myocardial infarction Coronary artery disease Palpitation Assessment/Plan Acute CVA occurred on October 13, 2020, had a CT angiogram of the head, receiving Lovenox. Still having some residual facial droop and left upper extremity weakness. Managed by primary care team Acute respiratory failure, flash pulmonary edema, probably secondary to atrial fibrillation/flutter with rapid ventricular response, continue with IV Lasix and monitor tolerance and response Atrial flutter with rapid ventricular response, heart rate is better controlled. Continue to monitor [id number] score of 8, yearly risk of stroke without oral anticoagulation is 9.8%. Started on Eliquis, tolerating it well. Continue to monitor Elevated troponin, probably type II myocardial infarction secondary to tachycardia, underlying coronary artery disease cannot be entirely excluded, discussed the possibility of cardiac catheterization patient has refused any cardiac catheterization in the past and still refusing on this admission. Coronary artery disease, history of non-ST elevation myocardial infarction in September 2019 and refused cardiac catheterization, had a history of CABG in 2010 using COLES to LAD, vein graft to the right coronary artery and vein graft to the circumflex artery. No recent cardiac work-up, has been following with Dr. Matias did not see him for a while Congestive heart failure, last echo was done in September 2019 showing ejection fraction 55 to 65%, moderately dilated left atrium, mild to moderate tricuspid regurgitation, left ventricular diastolic dysfunction, currently not in heart failure Echocardiogram was done on October 13, 2020 showing normal LV size, EF 55 to 65%, left atrial dilatation, calcification on the mitral annulus, mild to moderate mitral regurgitation, mild to moderate tricuspid regurgitation, PA pressure 30 mmHg. Continue to monitor History of chest pain in the past, no recent episodes of chest pain Hypertension, monitor tolerance and response to the medication changes Hyperlipidemia, maintained on statin, continue to monitor Diabetes mellitus, followed and managed by primary care physician ANTHONY NOVOA MD Oct 16, 2020 12:02
--- NOTE | 2020-10-16 12:17 | Progress Note ---
Subjective Date Seen by a Provider: Oct 16, 2020 Time Seen by a Provider: 11:00 Subjective/Events-last exam Patient requiring BiPAP during the day Patient appears to be declined Patient appears to have given up Left-sided stroke with weakness will be a challenge to rise above Advanced age of [age] years old and congestive heart failure and atrial fibrillation and the stroke with left-sided weakness is almost impossible to overcome Updated son TM on the phone and he assessed the same thing I assessed Made her completely a DO NOT RESUSCITATE so put that order in an updated nurse Not really eating Constipation continues Overall very much declined If she is able to stabilize she is looking at a shelter for long-term care She may ultimately decline and go to comfort care Review of Systems General: Fatigue Pulmonary: Dyspnea Neurological: Weakness, Confusion Objective Exam Last Set of Vital Signs Vital Signs Date Time Temp Pulse Resp B/P (MAP) Pulse Ox O2 Delivery O2 Flow Rate FiO2 10/16/20 11:26 36.9 70 18 131/65 (87) 96 NIV Bilevel 45.00 10/16/20 09:00 45 Capillary Refill : Less Than 3 Seconds I&O Intake and Output 10/16/20 00:00 Intake Total 290 ml Output Total 1775 ml Balance -1485 ml Intake Oral 290 ml Output Urine Total 1775 ml General: Alert, Oriented X3, Cooperative, Other (Flat affect) Lungs: Clear to Auscultation, Other (BiPAP on) Heart: Regular Rate Psych/Mental Status: Other (Subtle confusion) Results Lab Laboratory Tests 10/15/20 16:36: Glucometer 155H 10/15/20 20:18: Glucometer 119H 10/16/20 06:37: Glucometer 111H 10/16/20 11:23: Glucometer 186H Microbiology 10/12/20 MRSA Screen - Final, Complete MRSA not isolated Assessment/Plan Assessment/Plan Assess & Plan/Chief Complaint Assessment: Atrial fibrillation with rapid ventricular response had previous episode of A. 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 History of GI bleed Chronic kidney disease stage II CAD previous CABG Suspect untreated obstructive sleep apnea Noncompliance with medical recommendations Plan: Lovenox therapeutic dose twice daily PT and OT Rehab eval Appreciate cardiology Supportive care Oxygen supplementation 10/15/2020: Patient not well enough to go to rehab Monitor volume overload heart rate and blood pressure Bowel regimen Pain control 10/16/2020: Complex issues continue to become more complex Confirm decline with son Complete DO NOT RESUSCITATE Guarded prognosis Diagnosis/Problems Diagnosis/Problems (1) CVA (cerebral vascular accident) (2) Atrial fibrillation with rapid ventricular response (3) Acute on chronic heart failure Status: Acute (4) Hypertension (5) Hyperlipidemia (6) Respiratory distress (7) Diabetes (8) CAD (coronary artery disease) (9) Type 2 AMI (acute myocardial infarction) (10) Arthritis (11) Hx of CABG KEILA MARTINEZ DO Oct 16, 2020 12:17
[2020-10-16] MEDS ORDERED: KCL 10 MEQ TAB (MICRO K) PO ONE (13:15)
[2020-10-16] MEDS ORDERED: RT-ALBUTEROL/IPRATROPIUM 3 ML (DUONEB) VIAL INH PRN (14:30)
[2020-10-16] MEDS: RT-ALBUTEROL/IPRATROPIUM 3 ML (DUONEB) VIAL INH SCH ×3 (14:49→21:40)
[2020-10-16] MEDS: FUROSEMIDE 40 MG/4 ML INJ (LASIX) IVP SCH (17:08)
[2020-10-17] MEDS: RT-ALBUTEROL/IPRATROPIUM 3 ML (DUONEB) VIAL INH SCH ×6 (01:57→21:01)
[2020-10-17 03:56] VITALS: BP 114/46
[2020-10-17 05:53] LABS: HEMATOCRIT 38 % (35-52); HEMOGLOBIN 11.2 g/dL (11.5-16.0); MEAN CORPUSCULAR HEMOGLOBIN 28 pg (25-34); MEAN CORPUSCULAR HGB CONC 30 g/dL (32-36); MEAN CORPUSCULAR VOLUME 93 fL (80-99); MEAN PLATELET VOLUME 10.3 fL (9.0-12.2); PLATELET COUNT 191 10^3/uL (130-400); WHITE BLOOD COUNT 6.8 10^3/uL (4.3-11.0)
[2020-10-17 06:02] LABS: ALBUMIN 2.9 GM/DL (3.2-4.5); POTASSIUM 3.5 MMOL/L (3.6-5.0)
[2020-10-17 06:04] LABS: TOTAL PROTEIN 6.1 GM/DL (6.4-8.2)
[2020-10-17 06:06] LABS: BILIRUBIN,TOTAL 0.7 MG/DL (0.1-1.0)
[2020-10-17 06:08] LABS: CREATININE SERUM 1.16 MG/DL (0.60-1.30)
[2020-10-17 06:11] LABS: MAGNESIUM 1.9 MG/DL (1.6-2.4)
[2020-10-17] MEDS: inSUlin ASPART (NovoLOG) 1 UNIT/0.01 ML (CHARGE PER UNIT) SC SCH ×4 (06:46→21:26)
[2020-10-17] MEDS: KCL 10 MEQ TAB (MICRO K) PO SCH (06:46)
[2020-10-17] MEDS: FUROSEMIDE 40 MG/4 ML INJ (LASIX) IVP SCH (06:46)
[2020-10-17 07:50] VITALS: BP 139/54
[2020-10-17] MEDS: SENNA W/DOCUSATE (SENOKOT S) TABLET PO SCH ×2 (08:25→21:26)
[2020-10-17] MEDS: ASPIRIN 81 MG CHEW (CHILDREN'S ASA) PO SCH (08:25)
[2020-10-17] MEDS: DOCUSATE SODIUM 100 MG (COLACE) CAP PO SCH ×2 (08:25→21:26)
[2020-10-17] MEDS: meTOprolol SUCCINATE 100 MG (TOPROL XL) TAB PO SCH (08:25)
[2020-10-17] MEDS: TRIAMCINOLONE 0.5% CR (KENALOG) 15 GM TUBE TOP SCH ×2 (08:26→21:57)
[2020-10-17] MEDS: LACTULOSE SYRUP 10GM/15ML (ENULOSE) 30ML UDC PO SCH ×2 (08:26→21:26)
[2020-10-17] MEDS: NYSTATIN CREAM (MYCOSTATIN) 30 GM TUBE TP SCH ×3 (08:26→21:58)
[2020-10-17] MEDS: FENOFIBRATE, MICRO 67 MG (LOFIBRA) CAPSULE PO SCH (08:30)
[2020-10-17] MEDS: HYDROcodone/APAP 5 MG/325 MG (LORTAB) TAB PO PRN ×3 (09:09→21:49)
--- NOTE | 2020-10-17 09:24 | Progress Note - Cardiology ---
Cardiology SOAP Progress Note Subjective: In bed Daughter at the bedside No c/o CP or SOB Objective: I&O/Vital Signs 10/17/20 10/17/20 10/17/20 10/17/20 21:01 21:26 21:51 22:37 Temp 37.5 36.6 Pulse 116 Resp 28 Pulse Ox 94 96 O2 Delivery NIV Bilevel O2 Flow Rate 50.00 FiO2 50 10/18/20 10/18/20 10/18/20 10/18/20 00:00 01:00 03:36 04:28 Temp 35.8 36.8 Pulse 71 80 71 95 Resp 18 28 17 B/P (MAP) 119/64 (82) 133/72 (92) Pulse Ox 95 96 95 O2 Delivery NIV Bilevel NIV Bilevel O2 Flow Rate 50.00 50.00 50.00 10/18/20 10/18/20 06:38 07:00 Pulse 121 103 Resp 16 Pulse Ox 96 O2 Flow Rate 50.00 10/18/20 00:00 Intake Total 1270 ml Output Total 1475 ml Balance -205 ml Constitutional: appears stated age, well-developed, well-nourished Respiratory: No accessory muscle use, No respiratory distress; chest expansion is symmetric, chest is bilaterally symmetric, lungs clear to auscultation Cardiovascular: irregularly irregular; No JVD; S1 and S2 Gastrointestional: No tender; soft, round Extremities: no lower extremity edema bilateral Neurologic/Psychiatric: other (left sided facial droop; left sided weakness) Skin: No rash on exposed areas, No ulcerations on exposed areas Results/Procedures: Labs Laboratory Tests 10/17/20 11:42: Glucometer 161H 10/17/20 15:47: Glucometer 148H 10/17/20 20:14: Glucometer 153H 10/18/20 05:40: White Blood Count 5.7, Red Blood Count 3.89, Hemoglobin 10.6L, Hematocrit 36, Mean Corpuscular Volume 93, Mean Corpuscular Hemoglobin 27, Mean Corpuscular Hemoglobin Concent 29L, Red Cell Distribution Width 15.5H, Platelet Count 173, Mean Platelet Volume 10.4, Immature Granulocyte % (Auto) 0, Neutrophils (%) ( Auto) 74, Lymphocytes (%) (Auto) 14, Monocytes (%) (Auto) 11, Eosinophils (%) (Auto) 1, Basophils (%) (Auto) 0, Neutrophils # (Auto) 4.2, Lymphocytes # (Auto) 0.8L, Monocytes # (Auto) 0.6, Eosinophils # (Auto) 0.1, Basophils # (Auto) 0.0, Immature Granulocyte # (Auto) 0.0, Sodium Level 150H, Potassium Level 3.1L, Chloride Level 100, Carbon Dioxide Level 38H, Anion Gap 12, Blood Urea Nitrogen 25H, Creatinine 1.04, Estimat Glomerular Filtration Rate 50, BUN/Creatinine Ratio 24, Glucose Level 134H, Calcium Level 8.8, Corrected Calcium 9.8, Total Bilirubin 0.8, Aspartate Amino Transf (AST/SGOT) 18, Alanine Aminotransferase (ALT/SGPT) 14, Alkaline Phosphatase 39L, Total Protein 5.8L, Albumin 2.8L Microbiology 10/12/20 MRSA Screen - Final, Complete MRSA not isolated A/P: Assessment: Acute CVA 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 - [id number] score of 8, yearly risk of stroke without oral anticoagulation is 9.8%- remains on Lovenox at this time Elevated troponin - likely Type 2 NE d/t a-fib/flutter with RVR, can not r/o NSTEMI though - but continues to refuse cardiac cath at this time Echocardiogram of September 20, 2019 shows LVEF 55-65%. LA mod dilated. Mild to mod TR. PASP approx 30 mmHg. Grade 1 diastolic dysfunction. Echocardiogram was done on October 13, [address] Parra showing normal LV size, EF 55 to 65%, left atrial dilatation, calcification on the mitral annulus, mild to moderate mitral regurgitation, mild to moderate tricuspid regurgitation, PA pressure 30 mmHg. Continue to monitor Coronary artery disease - history of CABG in 2010: COLES to LAD, vein graft to the right coronary artery and vein graft to the circumflex artery - Suspected non-STEMI in September 2019 at time of hosp with CHF, refused card cath or MPI Hypertension Hyperlipidemia - statin Diabetes mellitus, followed and managed by primary care physician CKD 3-4 Anemia of undetermined etiology, managed by Dr Yung Plan: CVA - management per medical services Remains a-fib/flutter with improved rate control Currently on Lovenox for stroke prophylaxis - advise transition to OAC wt Eliquis Monitor lab and replace electrolytes as indicated SUNIL ERAZO Oct 17, 2020 09:24
--- NOTE | 2020-10-17 09:48 | Occupational Ther Daily Note ---
OT Current Status-Daily Note Subjective Pt dozing in bed, agrees to therapy. Nrsg stated that she just had gotten pain meds. Pt c/o pain in her bones and with any movement. Assisting nrsg tech for bathing. Family present in room. Mental Status/Objective Patient Orientation: Person, Place, Situation Attachments: IV, Oxygen, Telemetry ADL-Treatment Attempted to have pt participate in bed bath. Pt would hold onto wash cloth after placed in hand then verbal cues to use wash cloth on face, B UE and chest. Pt not thorough with cleansing and would not open eyes during bathing. Pt would spontaneously move B UE's though when requested to do so to bath areas or lift to change hospital gown or roll side to side pt would not move arms. Assist x2 to complete bed bath, roll to either side and stay on side. Bed bath and linen change completed. After therapy, pt lying on R side with call light/phone in reach. Family, nrsg and PA in room. All needs met. Therapy Code Descriptions/Definitions Functional [place] Measure: 0=Not Assessed/NA 4=Minimal Assistance 1=Total Assistance 5=Supervision or Setup 2=Maximal Assistance 6=Modified [place] 3=Moderate Assistance 7=Complete IndependenceSCALE: Activities may be completed with or without assistive devices. 5-Uedohtmnch-quoslop completes the activity by him/herself with no assistance from a helper. 5-Set-up or Clean-up Assistance-helper sets up or cleans up; patient completes activity. [place] assists only prior to or following the activity. 4-Supervision or Touching Assistance-helper provides verbal cues and/or touching/steadying and/or contact guard assistance as patient completes activity. Assistance may be provided throughout the activity or intermittently. 3-Partial/Moderate Assistance-helper does LESS THAN HALF the effort. [place] lifts, holds or supports trunk or limbs, but provides less than half the effort. 2-Substantial/Maximal Assistance-helper does MORE THAN HALF the effort. [place] lifts or holds trunk or limbs and provides more than half the effort. 3-Oiymzdgrl-bseqni does ALL the effort. Patient does none of the effort to complete the activity. Or, the assistance of 2 or more helpers is required for the patient to complete the activity. If activity was not attempted, code reason: 7-Patient Refused. 9-Not Applicable-not attempted and the patient did not perform the activity before the current illness, exacerbation or injury. 10-Not Attempted due to Environmental Limitations-(lack of equipment, weather restraints, etc.). 88-Not Attempted due to Medical Conditions or Safety Concerns. Shower/Bathe Self (QC): 1 OT Senior Sql Server Database Developer Goals Usp Goals Time Frame: Oct 28, 2020 Eating (QC): 6 Oral Hygiene (QC): 6 Toileting Hygiene (QC): 4 Shower/Bathe Self (QC): 4 Upper Body Dressing (QC): 5 Lower Body Dressing (QC): 4 On/Off Footwear (QC): 3 Additional Goals: 1-Demonstrate ADL Tasks, 2-Verbalize Understanding, 3- ImproveStrength/Chip 1=Demonstrate adherence to instructed precautions during ADL tasks. 2=Patient will verbalize/demonstrate understanding of assistive devices/modifications for ADL. 3=Patient will improve strength/tolerance for activity to enable patient to perform ADL's. OT Education/Plan Problem List/Assessment Assessment: Decreased Activ Tolerance, Decreased UE Strength, Impaired Bed Mobility, Impaired I ADL's, Impaired Self-Care Skills Discharge Recommendations Plan/Recommendations: Continue POC Treatment Plan/Plan of Care Patient would benefit from OT for education, treatment and training to promote independence in ADL's, mobility, safety and/or upper extremity function for ADL's. Plan of Care: ADL Retraining, Functional Mobility, UE Funct Exercise/Act Treatment Duration: Oct 28, 2020 Frequency: 5 times per week Estimated Hrs Per Day: .25 hour per day Rehab Potential: Fair Time/GCodes Start Time: 09:00 Stop Time: 09:38 Total Time Billed (hr/min): 38 Billed Treatment Time 1 visit-ADL 3 (38 min) DANAE CROW Oct 17, 2020 09:48
[2020-10-17] MEDS: ENOXAPARIN 80 MG/0.8 ML (LOVENOX) SYR SC SCH ×2 (10:13→21:51)
--- NOTE | 2020-10-17 10:44 | Physical Therapy Daily Note ---
PT Daily Note-Current Subjective Patient in bed pre tx, agrees to PT, has no pain at rest but states she has pain when moved in "her bones". Appearance Patient in bed post tx with nurse call, phone, tray, all needs met, nurse in room. Patient is laying on left side with pillow support to relieve pressure on bottom and has a pillow under her legs for heel float. Mental Status Patient Orientation: Person, Unable to Assess Attachments: Oxygen, Renae Catheter Transfers SCALE: Activities may be completed with or without assistive devices. 5-Hkdorkwnau-wjwechm completes the activity by him/herself with no assistance from a helper. 5-Set-up or Clean-up Assistance-helper sets up or cleans up; patient completes activity. [place] assists only prior to or following the activity. 4-Supervision or Touching Assistance-helper provides verbal cues and/or touching/steadying and/or contact guard assistance as patient completes activity. Assistance may be provided throughout the activity or intermittently. 3-Partial/Moderate Assistance-helper does LESS THAN HALF the effort. [place] lifts, holds or supports trunk or limbs, but provides less than half the effort. 2-Substantial/Maximal Assistance-helper does MORE THAN HALF the effort. [place] lifts or holds trunk or limbs and provides more than half the effort. 2-Acpeajumx-aqvkwp does ALL the effort. Patient does none of the effort to complete the activity. Or, the assistance of 2 or more helpers is required for the patient to complete the activity. If activity was not attempted, code reason: 7-Patient Refused. 9-Not Applicable-not attempted and the patient did not perform the activity before the current illness, exacerbation or injury. 10-Not Attempted due to Environmental Limitations-(lack of equipment, weather restraints, etc.). 88-Not Attempted due to Medical Conditions or Safety Concerns. Roll Left & Right (QC): 2 Sit to Lying (QC): 1 Lying to Sitting/Side of Bed(Q: 1 Patient sat to the side of the bed with assist of 2. Her HR varies from 100-120 just sitting, her O2 gradually goes into the mid 80's. Patient is layed back down with assist of 2, her O2 continues to decline even with purse lip breathing, fetched nurse and she puts bipap on and O2 climbs fairly quickly back into the high 80's. Treatments sitting Assessment Current Status: Poor Progress Patient cannot even tolerate sitting at the edge of bed at this time. PT Usp Goals Usp Goals PT Recovery Coach Goals Time Frame: Oct 20, 2020 Roll Left & Right (QC): 3 Sit to Lying (QC): 3 Lying-Sitting on Side/Bed(QC): 3 Sit to Stand (QC): 4 Chair/Qyh-ex-Iwguy Xfer(QC): 4 Walk 10 feet (QC): 4 Walk 50ft with 2 Turns (QC): 4 PT Plan Problem List Problem List: Activity Tolerance, Functional Strength, Safety, Balance, Gait, Transfer, Bed Mobility, ROM Treatment/Plan Treatment Plan: Continue Plan of Care Treatment Plan: Bed Mobility, Education, Functional Activity Chip, Functional Strength, Gait, Safety, Therapeutic Exercise, Transfers Treatment Duration: Oct 20, 2020 Frequency: 6 times per week Estimated Hrs Per Day: .25 hour per day Patient and/or Family Agrees t: Yes Safety Risks/Education Patient Education: Correct Positioning, Safety Issues Teaching Recipient: Patient Teaching Methods: Demonstration, Discussion Response to Teaching: Reinforcement Needed Time/GCodes Time In: 1017 Time Out: 1037 Total Billed Treatment Time: 20 Total Billed Treatment 1 visit FA 20' ISABEL TAMAYO PT Oct 17, 2020 10:44
[2020-10-17] MEDS ORDERED: BISACODYL 10 MG SUPP (DULCOLAX) PR ONE (11:00)
--- NOTE | 2020-10-17 11:13 | Progress Note ---
DESMOND LEWIS 10/17/20 1113: Subjective Date Seen by a Provider: Oct 17, 2020 Time Seen by a Provider: 08:50 Subjective/Events-last exam Pt condition seems to be deteriorating. Complains mostly of back pain which she was given Lortab for. Denies any fever, vomiting, nor chest pain/SOB. Exam shows L facial droop along with bilateral lung crackles. Plan for continued monitoring by cardiology, follow up with PT/OT, O2 supplementation, and supportive care. Review of Systems General: No Chills, No Appetite HEENT: No Head Aches, No Eye Pain, No Ear Pain Pulmonary: No Dyspnea, No Cough Cardiovascular: No: Chest Pain, Orthopnea, Lt Headedness Gastrointestinal: No: Nausea, Vomiting, Diarrhea Genitourinary: No Dysuria, No Incontinence, No Hematuria Musculoskeletal: back pain; No: other Neurological: No: Weakness, Numbness, Seizures Objective Exam Last Set of Vital Signs Vital Signs Date Time Temp Pulse Resp B/P (MAP) Pulse Ox O2 Delivery O2 Flow Rate FiO2 10/17/20 10:42 90 18 99 35.00 10/17/20 07:50 36.7 139/54 (82) NIV Bilevel 10/16/20 20:04 45 Capillary Refill : Less Than 3 Seconds I&O Intake and Output 10/17/20 00:00 Intake Total 500 ml Output Total 1960 ml Balance -1460 ml Intake Oral 500 ml Output Urine Total 1960 ml General: Alert, Oriented X3, Cooperative, Severe Distress HEENT: Atraumatic, EOMI Neck: Supple, No Thyromegaly Lungs: Other (crackles bilaterally) Heart: Regular Rate Abdomen: Soft, No Tenderness Extremities: No Cyanosis Skin: No Rashes, No Significant Lesion Results Lab Laboratory Tests 10/16/20 11:23: Glucometer 186H 10/16/20 16:07: Glucometer 156H 10/16/20 20:11: Glucometer 146H 10/17/20 04:52: Glucometer 127H 10/17/20 04:54: White Blood Count 6.8, Red Blood Count 4.05, Hemoglobin 11.2L, Hematocrit 38, Mean Corpuscular Volume 93, Mean Corpuscular Hemoglobin 28, Mean Corpuscular Hemoglobin Concent 30L, Red Cell Distribution Width 15.5H, Platelet Count 191, Mean Platelet Volume 10.3, Sodium Level 150H, Potassium Level 3.5L, Chloride Level 102, Carbon Dioxide Level 37H, Anion Gap 11, Blood Urea Nitrogen 23H, Creatinine 1.16, Estimat Glomerular Filtration Rate 44, BUN/Creatinine Ratio 20, Glucose Level 133H, Calcium Level 9.0, Corrected Calcium 9.9, Magnesium Level 1.9, Total Bilirubin 0.7, Aspartate Amino Transf (AST/SGOT) 18, Alanine A minotransferase (ALT/SGPT) 16, Alkaline Phosphatase 38L, Total Protein 6.1L, Albumin 2.9L Microbiology 10/12/20 MRSA Screen - Final, Complete MRSA not isolated Assessment/Plan Assessment/Plan Assess & Plan/Chief Complaint Atrial fibrillation with rapid ventricular response had previous episode of A. 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 History of GI bleed Chronic kidney disease stage II CAD previous CABG Suspect untreated obstructive sleep apnea Noncompliance with medical recommendations 10/17/2020: PT/OT Lortab for current backpain symptoms Acewraps for swelling TELMA MARTINEZ DO 10/18/20 0617: Subjective Subjective/Events-last exam Pt appears to be declining Up with therapy but required BiPAP restart due to hypoxia Coarseness in breath sounds noted Labs noted with sodium 150 so I will encourage oral intake Review of Systems General: Fatigue Pulmonary: Dyspnea Objective Exam General: Alert, Oriented X3, Cooperative, Mild Distress Heart: Regular Rate, Other (tachy) Assessment/Plan Assessment/Plan Assess & Plan/Chief Complaint Supportive care BiPAP Patient may very well meet criteria for comfort care if continues to decline Supervisory-Addendum Brief Verification & Attestation Participated in pt care: history, MDM, physical Personally performed: exam, history, MDM, supervision of care Care discussed with: Medical Student Procedures: n/a Results interpretation: Verified all documentation Verification and Attestation of Medical Student E/M Service A medical student performed and documented this service in my presence. I re viewed and verified all information documented by the medical student and made modifications to such information, when appropriate. I personally performed the physical exam and medical decision making. Telma Martinez, Oct 18, 2020,06:12 DESMOND LEWIS Oct 17, 2020 11:13 TELMA MARTINEZ DO Oct 18, 2020 06:17
[2020-10-17 12:00] VITALS: BP 113/48
--- NOTE | 2020-10-17 13:06 | Progress Note - Cardiology ---
Cardiology SOAP Progress Note Subjective: On BiPAP, somnolent, doesn't answer questions Objective: I&O/Vital Signs 10/17/20 10/17/20 10/17/20 10/17/20 01:58 03:56 06:55 07:00 Temp 36.6 Pulse 68 71 72 70 Resp 16 18 17 B/P (MAP) 114/46 (68) Pulse Ox 97 96 96 O2 Delivery NIV Bilevel O2 Flow Rate 40.00 45.00 35.00 10/17/20 10/17/20 10/17/20 07:50 10:42 12:00 Temp 36.7 37.7 Pulse 96 90 112 Resp 18 21 B/P (MAP) 139/54 (82) 113/48 (69) Pulse Ox 95 99 96 O2 Delivery NIV Bilevel NIV Bilevel O2 Flow Rate 45.00 35.00 45.00 10/17/20 00:00 Intake Total 300 ml Output Total 1650 ml Balance -1350 ml Constitutional: appears stated age, well-developed, well-nourished, other (On BiPAP, somnolent, doesn't answer questions) Respiratory: No accessory muscle use, No respiratory distress; chest expansion is symmetric, chest is bilaterally symmetric, lungs clear to auscultation Cardiovascular: irregularly irregular; No JVD; S1 and S2 Gastrointestional: No tender; soft, round Extremities: no lower extremity edema bilateral Neurologic/Psychiatric: other (left sided facial droop; left sided weakness) Skin: No rash on exposed areas, No ulcerations on exposed areas Results/Procedures: Labs Laboratory Tests 10/16/20 16:07: Glucometer 156H 10/16/20 20:11: Glucometer 146H 10/17/20 04:52: Glucometer 127H 10/17/20 04:54: White Blood Count 6.8, Red Blood Count 4.05, Hemoglobin 11.2L, Hematocrit 38, Mean Corpuscular Volume 93, Mean Corpuscular Hemoglobin 28, Mean Corpuscular Hemoglobin Concent 30L, Red Cell Distribution Width 15.5H, Platelet Count 191, Mean Platelet Volume 10.3, Sodium Level 150H, Potassium Level 3.5L, Chloride Level 102, Carbon Dioxide Level 37H, Anion Gap 11, Blood Urea Nitrogen 23H, Creatinine 1.16, Estimat Glomerular Filtration Rate 44, BUN/Creatinine Ratio 20, Glucose Level 133H, Calcium Level 9.0, Corrected Calcium 9.9, Magnesium Level 1.9, Total Bilirubin 0.7, Aspartate Amino Transf (AST/SGOT) 18, Alanine Aminotransferase (ALT/SGPT) 16, Alkaline Phosphatase 38L, Total Protein 6.1L, Albumin 2.9L 10/17/20 11:42: Glucometer 161H Microbiology 10/12/20 MRSA Screen - Final, Complete MRSA not isolated A/P: Assessment: Acute CVA 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 - [id number] score of 8, yearly risk of stroke without oral anticoagulation is 9.8%- remains on Lovenox at this time Elevated troponin - likely Type 2 MT d/t a-fib/flutter with RVR, can not r/o NSTEMI though - but continues to refuse cardiac cath at this time Echocardiogram of September 20, 2019 shows LVEF 55-65%. LA mod dilated. Mild to mod TR. PASP approx 30 mmHg. Grade 1 diastolic dysfunction. Echocardiogram was done on October 13, [address] Parra showing normal LV size, EF 55 to 65%, left atrial dilatation, calcification on the mitral annulus, mild to moderate mitral regurgitation, mild to moderate tricuspid regurgitation, PA pressure 30 mmHg. Continue to monitor Coronary artery disease - history of CABG in 2010: COLES to LAD, vein graft to the right coronary artery and vein graft to the circumflex artery - Suspected non-STEMI in September 2019 at time of hosp with CHF, refused card cath or MPI Hypertension Hyperlipidemia - statin Diabetes mellitus, followed and managed by primary care physician CKD 3-4 Anemia of undetermined etiology, managed by Dr Yung Plan: CVA - management per medical services Remains a-fib/flutter with improved rate control Currently on Lovenox for stroke prophylaxis - advise transition to OAC wtih Eliquis Monitor lab and replace electrolytes as indicated YEFRI DORSEY MD FACP FACC CCDS Oct 17, 2020 13:05
[2020-10-17] MEDS ORDERED: FUROSEMIDE 40 MG/4 ML INJ (LASIX) IVP ONE (14:30)
[2020-10-17 16:00] VITALS: BP 157/80
[2020-10-17 20:00] VITALS: BP 123/76
[2020-10-17] MEDS: ACETAMINOPHEN 325 MG TABLET PO PRN (21:51)
[2020-10-18] VITALS (7 sets, daily range): BP systolic 119–169; BP diastolic 51–74
[2020-10-18] MEDS: RT-ALBUTEROL/IPRATROPIUM 3 ML (DUONEB) VIAL INH SCH ×6 (02:30→22:24)
[2020-10-18] MEDS ORDERED: RT-IPRATROPIUM (ATROVENT) 0.5MG/2.5ML AMP IH ONE (02:47)
[2020-10-18 06:03] LABS: BASOPHILS % (AUTO) 0 % (0-10); EOSINOPHILS # (AUTO) 0.1 10^3/uL (0.0-0.3); EOSINOPHILS % (AUTO) 1 % (0-10); HEMATOCRIT 36 % (35-52); HEMOGLOBIN 10.6 g/dL (11.5-16.0); LYMPHOCYTES # (AUTO) 0.8 10^3/uL (1.0-4.0); LYMPHOCYTES % (AUTO) 14 % (12-44); MEAN CORPUSCULAR HEMOGLOBIN 27 pg (25-34); MEAN CORPUSCULAR HGB CONC 29 g/dL (32-36); MEAN CORPUSCULAR VOLUME 93 fL (80-99); MEAN PLATELET VOLUME 10.4 fL (9.0-12.2); MONOCYTES # (AUTO) 0.6 10^3/uL (0.0-1.0); MONOCYTES % (AUTO) 11 % (0-12); NEUTROPHILS # (AUTO) 4.2 10^3/uL (1.8-7.8); NEUTROPHILS % (AUTO) 74 % (42-75); PLATELET COUNT 173 10^3/uL (130-400); WHITE BLOOD COUNT 5.7 10^3/uL (4.3-11.0)
[2020-10-18 06:16] LABS: ALBUMIN 2.8 GM/DL (3.2-4.5); POTASSIUM 3.1 MMOL/L (3.6-5.0)
[2020-10-18 06:17] LABS: CALCIUM 8.8 MG/DL (8.5-10.1)
[2020-10-18 06:18] LABS: TOTAL PROTEIN 5.8 GM/DL (6.4-8.2)
[2020-10-18] MEDS: inSUlin ASPART (NovoLOG) 1 UNIT/0.01 ML (CHARGE PER UNIT) SC SCH ×4 (06:19→21:17)
[2020-10-18 06:20] LABS: BILIRUBIN,TOTAL 0.8 MG/DL (0.1-1.0)
[2020-10-18 06:22] LABS: CREATININE SERUM 1.04 MG/DL (0.60-1.30)
[2020-10-18] MEDS: KCL 10 MEQ TAB (MICRO K) PO SCH ×3 (06:28→18:35)
--- NOTE | 2020-10-18 08:38 | Progress Note - Cardiology ---
Cardiology SOAP Progress Note Subjective: Lying in bed with Bi-pap in place Shakes no when asked about pain; does not answer any other questions Somnolent this morning Objective: I&O/Vital Signs 10/18/20 10/18/20 10/18/20 10/18/20 03:36 04:28 06:38 07:00 Temp 36.8 Pulse 71 95 121 103 Resp 28 17 16 B/P (MAP) 133/72 (92) Pulse Ox 96 95 96 O2 Delivery NIV Bilevel O2 Flow Rate 50.00 50.00 50.00 10/18/20 10/18/20 10/18/20 10/18/20 08:00 08:55 10:52 12:10 Temp 37.0 36.7 Pulse 119 78 71 Resp 22 20 21 B/P (MAP) 152/69 (96) 169/74 (105) Pulse Ox 99 99 97 97 O2 Delivery NIV Bilevel NIV Bilevel NIV Bilevel O2 Flow Rate 50.00 50.00 50.00 FiO2 45 10/18/20 13:00 Pulse 90 10/18/20 00:00 Intake Total 1270 ml Output Total 1475 ml Balance -205 ml Constitutional: appears stated age, well-developed, well-nourished, other (On BiPAP, somnolent, doesn't answer questions) Respiratory: No accessory muscle use, No respiratory distress; chest expansion is symmetric, chest is bilaterally symmetric, lungs clear to auscultation Cardiovascular: irregularly irregular; No JVD; S1 and S2 Gastrointestional: No tender; soft, round Extremities: no lower extremity edema bilateral Neurologic/Psychiatric: other (left sided facial droop; left sided weakness) Skin: No rash on exposed areas, No ulcerations on exposed areas Results/Procedures: Labs Laboratory Tests 10/17/20 15:47: Glucometer 148H 10/17/20 20:14: Glucometer 153H 10/18/20 05:40: White Blood Count 5.7, Red Blood Count 3.89, Hemoglobin 10.6L, Hematocrit 36, Mean Corpuscular Volume 93, Mean Corpuscular Hemoglobin 27, Mean Corpuscular Hemoglobin Concent 29L, Red Cell Distribution Width 15.5H, Platelet Count 173, Mean Platelet Volume 10.4, Immature Granulocyte % (Auto) 0, Neutrophils (%) (Auto) 74, Lymphocytes (%) (Auto) 14, Monocytes (%) (Auto) 11, Eosinophils (%) (Auto) 1, Basophils (%) (Auto) 0, Neutrophils # (Auto) 4.2, Lymphocytes # (Auto) 0.8L, Monocytes # (Auto) 0.6, Eosinophils # (Auto) 0.1, Basophils # (Auto) 0.0, Immature Granulocyte # (Auto) 0.0, Sodium Level 150H, Potassium Level 3.1L, Chloride Level 100, Carbon Dioxide Level 38H, Anion Gap 12, Blood Urea Nitrogen 25H, Creatinine 1.04, Estimat Glomerular Filtration Rate 50, BUN/Creatinine Ratio 24, Glucose Level 134H, Calcium Level 8.8, Corrected Calcium 9.8, Total Bilirubin 0.8, Aspartate Amino Transf (AST/SGOT) 18, Alanine Aminotransferase (ALT/SGPT) 14, Alkaline Phosphatase 39L, Total Protein 5.8L, Albumin 2.8L 10/18/20 10:36: Glucometer 173H Microbiology 10/12/20 MRSA Screen - Final, Complete MRSA not isolated A/P: Assessment: Acute CVA 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 - [id number] score of 8, yearly risk of stroke without oral anticoagulation is 9.8%- remains on Lovenox at this time Elevated troponin - likely Type 2 [place] d/t a-fib/flutter with RVR, can not r/o NSTEMI though - but continues to refuse cardiac cath at this time Echocardiogram of September 20, 2019 shows LVEF 55-65%. LA mod dilated. Mild to mod TR. PASP approx 30 mmHg. Grade 1 diastolic dysfunction. Echocardiogram was done on October 13, [address] Parra showing normal LV size, EF 55 to 65%, left atrial dilatation, calcification on the mitral annulus, mild to moderate mitral regurgitation, mild to moderate tricuspid regurgitation, PA pressure 30 mmHg. Continue to monitor Coronary artery disease - history of CABG in 2010: COLES to LAD, vein graft to the right coronary artery and vein graft to the circumflex artery - Suspected non-STEMI in September 2019 at time of hosp with CHF, refused card cath or MPI Hypertension Hyperlipidemia - statin Diabetes mellitus, followed and managed by primary care physician CKD 3-4 Anemia of undetermined etiology, managed by Dr Yung Plan: CVA - management per medical services Remains a-fib/flutter with improved rate control Currently on Lovenox for stroke prophylaxis - advise transition to OAC wt Eliquis Monitor lab and replace electrolytes as indicated SUNIL ERAZOP Oct 18, 2020 08:38
[2020-10-18] MEDS ORDERED: KCL 20 MEQ TAB (K-DUR) PO ONE ×2 (08:45→13:00)
[2020-10-18] MEDS: ASPIRIN 81 MG CHEW (CHILDREN'S ASA) PO SCH (09:48)
[2020-10-18] MEDS: meTOprolol SUCCINATE 100 MG (TOPROL XL) TAB PO SCH (09:48)
[2020-10-18] MEDS: FENOFIBRATE, MICRO 67 MG (LOFIBRA) CAPSULE PO SCH (09:48)
[2020-10-18] MEDS: SENNA W/DOCUSATE (SENOKOT S) TABLET PO SCH ×2 (09:49→20:44)
[2020-10-18] MEDS: DOCUSATE SODIUM 100 MG (COLACE) CAP PO SCH ×2 (09:49→20:43)
[2020-10-18] MEDS: LACTULOSE SYRUP 10GM/15ML (ENULOSE) 30ML UDC PO SCH ×2 (09:49→20:43)
[2020-10-18] MEDS: NYSTATIN CREAM (MYCOSTATIN) 30 GM TUBE TP SCH ×3 (09:50→20:44)
[2020-10-18] MEDS: TRIAMCINOLONE 0.5% CR (KENALOG) 15 GM TUBE TOP SCH ×2 (09:50→20:44)
[2020-10-18] MEDS ORDERED: APIXABAN 5 MG (ELIQUIS) TABLET PO ONE (10:00)
--- NOTE | 2020-10-18 10:38 | Occupational Ther Daily Note ---
OT Current Status-Daily Note Subjective Nrsg stated that pt is on bed rest. Pt shook head affirmative when WALDROP said her name. Pt on BiPap when WALDROP entered room, O2 levels 97% and above. When nrsg administered meds then WALDROP assisted with eating and oral care nasal cannula on 8L, maintained 95% and above when alert. Mental Status/Objective Patient Orientation: Person Attachments: Renae Catheter, IV, Oxygen ADL-Treatment Pt required assistance to scoop and bring food to mouth to eat some breakfast, max A. Max A to bring cup to mouth and pt used straw to drink from. Pt was able to wipe face with cloth after placing in hand. After set up with moist oral sponge with toothpaste applied and placed in pt's hand, pt able to bring to mouth to complete oral care. Pt did not rinse and spit, very small amount of toothpaste placed on oral sponge. Pt did wipe mouth after. After session completed, pt lying in bed with call light in reach. Nrsg present in room. Repoted to nrsg tech pt's position. Therapy Code Descriptions/Definitions Functional [place] Measure: 0=Not Assessed/NA 4=Minimal Assistance 1=Total Assistance 5=Supervision or Setup 2=Maximal Assistance 6=Modified [place] 3=Moderate Assistance 7=Complete IndependenceSCALE: Activities may be completed with or without assistive devices. 2-Oiotrbgrae-yudmnsr completes the activity by him/herself with no assistance from a helper. 5-Set-up or Clean-up Assistance-helper sets up or cleans up; patient completes activity. [place] assists only prior to or following the activity. 4-Supervision or Touching Assistance-helper provides verbal cues and/or touching/steadying and/or contact guard assistance as patient completes a ctivity. Assistance may be provided throughout the activity or intermittently. 3-Partial/Moderate Assistance-helper does LESS THAN HALF the effort. [place] lifts, holds or supports trunk or limbs, but provides less than half the effort. 2-Substantial/Maximal Assistance-helper does MORE THAN HALF the effort. [place] lifts or holds trunk or limbs and provides more than half the effort. 0-Lqregavyp-ijuggh does ALL the effort. Patient does none of the effort to complete the activity. Or, the assistance of 2 or more helpers is required for the patient to complete the activity. If activity was not attempted, code reason: 7-Patient Refused. 9-Not Applicable-not attempted and the patient did not perform the activity before the current illness, exacerbation or injury. 10-Not Attempted due to Environmental Limitations-(lack of equipment, weather restraints, etc.). 88-Not Attempted due to Medical Conditions or Safety Concerns. Eating (QC): 2 Oral Hygiene (QC): 5 OT Computer Systems Manager Goals Halfway Goals Time Frame: Oct 28, 2020 Eating (QC): 6 Oral Hygiene (QC): 6 Toileting Hygiene (QC): 4 Shower/Bathe Self (QC): 4 Upper Body Dressing (QC): 5 Lower Body Dressing (QC): 4 On/Off Footwear (QC): 3 Additional Goals: 1-Demonstrate ADL Tasks, 2-Verbalize Understanding, 3- ImproveStrength/Chip 1=Demonstrate adherence to instructed precautions during ADL tasks. 2=Patient will verbalize/demonstrate understanding of assistive devices/modifications for ADL. 3=Patient will improve strength/tolerance for activity to enable patient to perform ADL's. OT Education/Plan Problem List/Assessment Assessment: Decreased Activ Tolerance, Decreased Safety Aware, Decreased UE Strength, Impaired Self-Care Skills Discharge Recommendations Plan/Recommendations: Continue POC Treatment Plan/Plan of Care Patient would benefit from OT for education, treatment and training to promote independence in ADL's, mobility, safety and/or upper extremity function for ADL's. Plan of Care: ADL Retraining, Functional Mobility, UE Funct Exercise/Act Treatment Duration: Oct 28, 2020 Frequency: 5 times per week Estimated Hrs Per Day: .25 hour per day Rehab Potential: Fair Time/GCodes Start Time: 09:42 Stop Time: 10:15 Total Time Billed (hr/min): 27 Billed Treatment Time 1 visit-ADL 2 (30 min) DANAE CROW Oct 18, 2020 10:38
--- NOTE | 2020-10-18 10:51 | Physical Therapy Daily Note ---
PT Daily Note-Current Subjective Patient in bed pre tx, agrees to PT, has no pain at rest but does have pain with movement. Patient has had a BM in bed, nurse will assist with cleaning patient. Appearance Patient in bed post tx with nurse call, phone, tray, all needs met. Patient is on left side with pillow support for pressure relief and has pillow under legs for heel float. Mental Status Patient Orientation: Person Attachments: Oxygen, Renae Catheter Transfers SCALE: Activities may be completed with or without assistive devices. 5-Ubtjtfcenf-bkvxuyv completes the activity by him/herself with no assistance from a helper. 5-Set-up or Clean-up Assistance-helper sets up or cleans up; patient completes activity. [place] assists only prior to or following the activity. 4-Supervision or Touching Assistance-helper provides verbal cues and/or touching/steadying and/or contact guard assistance as patient completes activity. Assistance may be provided throughout the activity or intermittently. 3-Partial/Moderate Assistance-helper does LESS THAN HALF the effort. [place] lifts, holds or supports trunk or limbs, but provides less than half the effort. 2-Substantial/Maximal Assistance-helper does MORE THAN HALF the effort. [place] lifts or holds trunk or limbs and provides more than half the effort. 6-Qxyryuvcf-ygpajn does ALL the effort. Patient does none of the effort to complete the activity. Or, the assistance of 2 or more helpers is required for the patient to complete the activity. If activity was not attempted, code reason: 7-Patient Refused. 9-Not Applicable-not attempted and the patient did not perform the activity before the current illness, exacerbation or injury. 10-Not Attempted due to Environmental Limitations-(lack of equipment, weather restraints, etc.). 88-Not Attempted due to Medical Conditions or Safety Concerns. Roll Left & Right (QC): 1 Patient rolls from side to side for cleaning BM and replacing pad. Patient is encouraged to assist but she resists rolling both ways. Exercises Supine Ex: Ankle pumps, Quad Set, Glut sets Supine Reps: 20 Treatments bed mobility, LE strengthening Assessment Current Status: Poor Progress Patient is declining in functional mobility. Patient's O2 varies from 92% to 85% with just rolling and LE exercise. Her HR varies from 110-120 with minimal activity. PT Custodial Goals Self Propelled Hot Mix Roller Operator Goals PT Custodial Goals Time Frame: Oct 20, 2020 Roll Left & Right (QC): 3 Sit to Lying (QC): 3 Lying-Sitting on Side/Bed(QC): 3 Sit to Stand (QC): 4 Chair/Juv-yk-Woegk Xfer(QC): 4 Walk 10 feet (QC): 4 Walk 50ft with 2 Turns (QC): 4 PT Plan Problem List Problem List: Activity Tolerance, Functional Strength, Safety, Balance, Gait, Transfer, Bed Mobility, ROM Treatment/Plan Treatment Plan: Continue Plan of Care Treatment Plan: Bed Mobility, Education, Functional Activity Chip, Functional Strength, Gait, Safety, Therapeutic Exercise, Transfers Treatment Duration: Oct 20, 2020 Frequency: 6 times per week Estimated Hrs Per Day: .25 hour per day Patient and/or Family Agrees t: Yes Safety Risks/Education Patient Education: Correct Positioning, Safety Issues Teaching Recipient: Patient Teaching Methods: Demonstration, Discussion Response to Teaching: Reinforcement Needed Time/GCodes Time In: 1027 Time Out: 1038 Total Billed Treatment Time: 11 Total Billed Treatment 1 visit FA ISABEL NEGRON PT Oct 18, 2020 10:51
--- NOTE | 2020-10-18 11:54 | Progress Note ---
DESMOND LEWIS 10/18/20 1154: Subjective Date Seen by a Provider: Oct 18, 2020 Time Seen by a Provider: 08:00 Subjective/Events-last exam Pt seems to be worsening and was placed on bipap. History was difficult to obtain due to pt conditions. No pain. Reduced bilateral leg swelling. Denied any fever, vomiting, diarrhea, chills, chest pain, palpitations. Review of Systems General: No Chills; Other (Difficult to obtain due to pt condition) HEENT: No Head Aches, No Eye Pain, No Ear Pain; Other (Difficult to obtain due to pt condition) Pulmonary: No Cough; Other (Difficult to obtain due to pt condition) Cardiovascular: Other (Difficult to obtain due to pt condition); No: Chest Pain, Palpitations, Lt Headedness Gastrointestinal: Other (Difficult to obtain due to pt condition); No: Nausea, Vomiting, Diarrhea Genitourinary: Other (Difficult to obtain due to pt condition) Musculoskeletal: No: neck pain, arm pain, back pain Neurological: Other; No: Seizures Objective Exam Last Set of Vital Signs Vital Signs Date Time Temp Pulse Resp B/P (MAP) Pulse Ox O2 Delivery O2 Flow Rate FiO2 10/18/20 10:52 78 20 97 50.00 10/18/20 08:55 NIV Bilevel 45 10/18/20 08:00 37.0 152/69 (96) Capillary Refill : Less Than 3 Seconds I&O Intake and Output 10/18/20 00:00 Intake Total 1420 ml Output Total 1800 ml Balance -380 ml Intake Oral 1420 ml Output Urine Total 1800 ml # Bowel Movements 3 General: Cooperative, Severe Distress Neck: Supple, No Thyromegaly Lungs: Clear to Auscultation, Normal Air Movement Heart: Regular Rate Abdomen: Soft, No Tenderness Extremities: No Cyanosis, Normal Pulses Skin: No Rashes, No Significant Lesion Results Lab Laboratory Tests 10/17/20 15:47: Glucometer 148H 10/17/20 20:14: Glucometer 153H 10/18/20 05:40: White Blood Count 5.7, Red Blood Count 3.89, Hemoglobin 10.6L, Hematocrit 36, Mean Corpuscular Volume 93, Mean Corpuscular Hemoglobin 27, Mean Corpuscular Hemoglobin Concent 29L, Red Cell Distribution Width 15.5H, Platelet Count 173, Mean Platelet Volume 10.4, Immature Granulocyte % (Auto) 0, Neutrophils (%) (Auto) 74, Lymphocytes (%) (Auto) 14, Monocytes (%) (Auto) 11, Eosinophils (%) (Auto) 1, Basophils (%) (Auto) 0, Neutrophils # (Auto) 4.2, Lymphocytes # (Auto) 0.8L, Monocytes # (Auto) 0.6, Eosinophils # (Auto) 0.1, Basophils # (Auto) 0.0, Immature Granulocyte # (Auto) 0.0, Sodium Level 150H, Potassium Level 3.1L, Chloride Level 100, Carbon Dioxide Level 38H, Anion Gap 12, Blood Urea Nitrogen 25H, Creatinine 1.04, Estimat Glomerular Filtration Rate 50, BUN/Creatinine Ratio 24, Glucose Level 134H, Calcium Level 8.8, Corrected Calcium 9.8, Total Bilirubin 0.8, Aspartate Amino Transf (AST/SGOT) 18, Alanine Aminotransferase (ALT/SGPT) 14, Alkaline Phosphatase 39L, Total Protein 5.8L, Albumin 2.8L 10/18/20 10:36: Glucometer 173H Microbiology 10/12/20 MRSA Screen - Final, Complete MRSA not isolated Assessment/Plan Assessment/Plan Assess & Plan/Chief Complaint Atrial fibrillation with rapid ventricular response had previous episode of A. 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 History of GI bleed Chronic kidney disease stage II CAD previous CABG Suspect untreated obstructive sleep apnea Noncompliance with medical recommendations 10/17/2020: PT/OT Lortab for current back pain symptoms Acewraps for swelling 10/18/2020: Continue PT/OT Back pain - Resolved LE swelling significantly improved Continue to monitor O2/Respiratory therapy TELMA MARTINEZ DO 10/19/20 0539: Subjective Subjective/Events-last exam Pt still having some difficulty Remains on BiPAP most of the time Vapotherm transitioning during therapy No pain is reported Bowels moved a great deal after laxatives Prognosis appears to be poor Updated son Dejuan at 1800 hrs. and he is agreeable for comfort care tomorrow morning Review of Systems Pulmonary: Dyspnea Neurological: Confusion Objective Exam General: Alert, Oriented X3, Cooperative, Mild Distress Lungs: Other (Coarse breath sounds) Heart: Other (Tachycardic) Assessment/Plan Assessment/Plan Assess & Plan/Chief Complaint Comfort care protocol tomorrow Supervisory-Addendum Brief Verification & Attestation Participated in pt care: history, MDM, physical Personally performed: exam, history, MDM, supervision of care Care discussed with: Medical Student Procedures: n/a Results interpretation: Verified all documentation Verification and Attestation of Medical Student E/M Service A medical student performed and documented this service in my presence. I reviewed and verified all information documented by the medical student and made modifications to such information, when appropriate. I personally performed the physical exam and medical decision making. Telma Martinez, Oct 19, 2020,05:38 DESMOND LEWIS Oct 18, 2020 11:54 TELMA MARTINEZ DO Oct 19, 2020 05:39
--- NOTE | 2020-10-18 13:57 | Progress Note - Cardiology ---
Cardiology SOAP Progress Note Subjective: BiPAP. No symptoms reported Objective: I&O/Vital Signs 10/18/20 10/18/20 10/18/20 10/18/20 03:36 04:28 06:38 07:00 Temp 36.8 Pulse 71 95 121 103 Resp 28 17 16 B/P (MAP) 133/72 (92) Pulse Ox 96 95 96 O2 Delivery NIV Bilevel O2 Flow Rate 50.00 50.00 50.00 10/18/20 10/18/20 10/18/20 10/18/20 08:00 08:55 10:52 12:10 Temp 37.0 36.7 Pulse 119 78 71 Resp 22 20 21 B/P (MAP) 152/69 (96) 169/74 (105) Pulse Ox 99 99 97 97 O2 Delivery NIV Bilevel NIV Bilevel NIV Bilevel O2 Flow Rate 50.00 50.00 50.00 FiO2 45 10/18/20 13:00 Pulse 90 10/18/20 00:00 Intake Total 1270 ml Output Total 1475 ml Balance -205 ml Constitutional: appears stated age, well-developed, well-nourished, other (On BiPAP, somnolent, doesn't answer questions) Respiratory: No accessory muscle use, No respiratory distress; chest expansion is symmetric, chest is bilaterally symmetric, lungs clear to auscultation Cardiovascular: irregularly irregular; No JVD; S1 and S2 Gastrointestional: No tender; soft, round Extremities: no lower extremity edema bilateral Neurologic/Psychiatric: other (left sided facial droop; left sided weakness) Skin: No rash on exposed areas, No ulcerations on exposed areas Results/Procedures: Labs Laboratory Tests 10/17/20 15:47: Glucometer 148H 10/17/20 20:14: Glucometer 153H 10/18/20 05:40: White Blood Count 5.7, Red Blood Count 3.89, Hemoglobin 10.6L, Hematocrit 36, Mean Corpuscular Volume 93, Mean Corpuscular Hemoglobin 27, Mean Corpuscular Hemoglobin Concent 29L, Red Cell Distribution Width 15.5H, Platelet Count 173, Mean Platelet Volume 10.4, Immature Granulocyte % (Auto) 0, Neutrophils (%) (Auto) 74, Lymphocytes (%) (Auto) 14, Monocytes (%) (Auto) 11, Eosinophils (%) (Auto) 1, Basophils (%) (Auto) 0, Neutrophils # (Auto) 4.2, Lymphocytes # (Auto) 0.8L, Monocytes # (Auto) 0.6, Eosinophils # (Auto) 0.1, Basophils # (Auto) 0.0, Immature Granulocyte # (Auto) 0.0, Sodium Level 150H, Potassium Level 3.1L, Chloride Level 100, Carbon Dioxide Level 38H, Anion Gap 12, Blood Urea Nitrogen 25H, Creatinine 1.04, Estimat Glomerular Filtration Rate 50, BUN/Creatinine Ratio 24, Glucose Level 134H, Calcium Level 8.8, Corrected Calcium 9.8, Total Bilirubin 0.8, Aspartate Amino Transf (AST/SGOT) 18, Alanine Aminotransferase ( ALT/SGPT) 14, Alkaline Phosphatase 39L, Total Protein 5.8L, Albumin 2.8L 10/18/20 10:36: Glucometer 173H Microbiology 10/12/20 MRSA Screen - Final, Complete MRSA not isolated Laboratory Tests 10/17/20 04:54 10/18/20 05:40 A/P: Assessment: Acute CVA 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 - [id number] score of 8, yearly risk of stroke without oral anticoagulation is 9.8%- remains on Lovenox at this time Elevated troponin - likely Type 2 [place] d/t a-fib/flutter with RVR, can not r/o NSTEMI though - but continues to refuse cardiac cath at this time Echocardiogram of September 20, 2019 shows LVEF 55-65%. LA mod dilated. Mild to mod TR. PASP approx 30 mmHg. Grade 1 diastolic dysfunction. Echocardiogram was done on October 13, [address] Parra showing normal LV size, EF 55 to 65%, left atrial dilatation, calcification on the mitral annulus, mild to moderate mitral regurgitation, mild to moderate tricuspid regurgitation, PA pressure 30 mmHg. Continue to monitor Coronary artery disease - history of CABG in 2010: COLES to LAD, vein graft to the right coronary artery and vein graft to the circumflex artery - Suspected non-STEMI in September 2019 at time of hosp with CHF, refused card cath or MPI Hypertension Hyperlipidemia - statin Diabetes mellitus, followed and managed by primary care physician CKD 3-4 Anemia of undetermined etiology, managed by Dr Yung Plan: CVA - management per medical services Remains a-fib/flutter with improved rate control Currently on Lovenox for stroke prophylaxis - advise transition to OAC wtih Eliquis Monitor lab and replace electrolytes as indicated YEFRI DORSEY MD FACP FACC CCDS Oct 18, 2020 13:57
[2020-10-18] MEDS: ACETAMINOPHEN 325 MG TABLET PO PRN (14:25)
[2020-10-18] MEDS: APIXABAN 5 MG (ELIQUIS) TABLET PO SCH (20:43)
[2020-10-19] MEDS: RT-ALBUTEROL/IPRATROPIUM 3 ML (DUONEB) VIAL INH SCH ×3 (03:00→10:50)
[2020-10-19 03:59] VITALS: BP 124/63
[2020-10-19 05:41] LABS: POTASSIUM 4.4 MMOL/L (3.6-5.0)
[2020-10-19 05:42] LABS: CALCIUM 9.3 MG/DL (8.5-10.1)
[2020-10-19 05:47] LABS: CREATININE SERUM 0.97 MG/DL (0.60-1.30)
[2020-10-19 05:49] LABS: MAGNESIUM 2.2 MG/DL (1.6-2.4)
[2020-10-19] MEDS: inSUlin ASPART (NovoLOG) 1 UNIT/0.01 ML (CHARGE PER UNIT) SC SCH ×3 (05:51→15:54)
[2020-10-19] MEDS: KCL 10 MEQ TAB (MICRO K) PO SCH ×2 (06:00→08:00)
[2020-10-19] MEDS ORDERED: RT-ALBUTEROL/IPRATROPIUM 3 ML (DUONEB) VIAL INH PRN (06:30)
[2020-10-19] MEDS ORDERED: ARTIFICAL TEARS 0.4 ML UNIT DOSE (REFRESH PLUS) OU PRN (06:30)
[2020-10-19] MEDS ORDERED: GLYCOPYRROLATE 0.2 MG/ML (ROBINUL) 2 ML VIAL IV PRN (06:30)
[2020-10-19] MEDS ORDERED: ACETAMINOPHEN 650 MG SUPP (TYLENOL) PR PRN (06:30)
[2020-10-19] MEDS ORDERED: morphine INJ 4 MG/ML 1 ML (VIAL/SYRINGE) IV PRN (06:30)
[2020-10-19] MEDS ORDERED: BISACODYL 10 MG SUPP (DULCOLAX) PR PRN (06:30)
[2020-10-19] MEDS ORDERED: ONDANSETRON 4 MG/2 ML (SDV) Z0FRAN IVP PRN (06:30)
[2020-10-19] MEDS ORDERED: SALIVA STIMULANT MOUTH SPRAY (BIOTENE) 1.5 OZ MM PRN (06:30)
[2020-10-19 08:00] VITALS: BP 156/85
--- NOTE | 2020-10-19 08:32 | Progress Note - Cardiology ---
Cardiology SOAP Progress Note Subjective: Currently on Bi-pap Somnolent this morning Does not answer any questions, opens eyes when talked to Objective: I&O/Vital Signs 10/18/20 10/18/20 10/19/20 10/19/20 22:24 23:28 01:00 03:43 Temp 37.6 Pulse 79 98 95 117 Resp 23 22 26 B/P (MAP) 132/65 (87) Pulse Ox 90 93 95 O2 Delivery NIV Bilevel O2 Flow Rate 35.00 35.00 35.00 10/19/20 10/19/20 10/19/20 03:59 06:50 07:39 Temp 36.4 Pulse 116 136 Resp 23 28 B/P (MAP) 124/63 (83) Pulse Ox 94 93 93 O2 Delivery NIV Bilevel NIV Bilevel O2 Flow Rate 35.00 35.00 FiO2 45 10/19/20 00:00 Intake Total 200 ml Output Total 525 ml Balance -325 ml Constitutional: appears stated age, well-developed, well-nourished, other (On BiPAP, somnolent, doesn't answer questions) Respiratory: No accessory muscle use, No respiratory distress; chest expansion is symmetric, chest is bilaterally symmetric, lungs clear to auscultation Cardiovascular: irregularly irregular; No JVD; S1 and S2 Gastrointestional: No tender; soft, round, audible bowel sounds Extremities: no lower extremity edema bilateral Neurologic/Psychiatric: other (left sided facial droop; left sided weakness) Skin: No rash on exposed areas, No ulcerations on exposed areas Results/Procedures: Labs Laboratory Tests 10/18/20 10:36: Glucometer 173H 10/18/20 16:06: Glucometer 146H 10/18/20 21:11: Glucometer 118H 10/19/20 05:15: Sodium Level 149H, Potassium Level 4.4, Chloride Level 104, Carbon Dioxide Level 34H, Anion Gap 11, Blood Urea Nitrogen 26H, Creatinine 0.97, Estimat Glomerular Filtration Rate 55, BUN/Creatinine Ratio 27, Glucose Level 118H, Calcium Level 9.3, Magnesium Level 2.2 Microbiology 10/12/20 MRSA Screen - Final, Complete MRSA not isolated Laboratory Tests 10/18/20 05:40 10/19/20 05:15 A/P: Assessment: 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 LA mod dilated. Mild to mod TR. PASP approx 30 mmHg. Grade 1 diastolic dysfunction. Echocardiogram was done on October 13, [address] Parra showing normal LV size, EF 55 to 65%, left atrial dilatation, calcification on the mitral annulus, mild to moderate mitral regurgitation, mild to moderate tricuspid regurgitation, PA pressure 30 mmHg. Continue to monitor Coronary artery disease - history of CABG in 2010: COLES to LAD, vein graft to the right coronary artery and vein graft to the circumflex artery - Suspected non-STEMI in September 2019 at time of hosp with CHF, refused card cath or MPI Hypertension Hyperlipidemia - statin Diabetes mellitus, followed and managed by primary care physician CKD 3-4 Anemia of undetermined etiology, managed by Dr Yung Plan: CVA - management per medical services Remains a-fib/flutter with fairly controlled rate control Continue OAC with Eliquis Monitor lab and replace electrolytes as indicated Seen by Palliative care yesterday - family to make decision later this morning Clinical Quality Measures Type of Care: Type of Care: Comfort Measures SUNIL ERAZO Oct 19, 2020 08:32
[2020-10-19] MEDS: LACTULOSE SYRUP 10GM/15ML (ENULOSE) 30ML UDC PO SCH (09:00)
[2020-10-19] MEDS: DOCUSATE SODIUM 100 MG (COLACE) CAP PO SCH (09:00)
[2020-10-19] MEDS: SENNA W/DOCUSATE (SENOKOT S) TABLET PO SCH (09:00)
[2020-10-19] MEDS: NYSTATIN CREAM (MYCOSTATIN) 30 GM TUBE TP SCH ×3 (09:00→20:49)
[2020-10-19] MEDS: meTOprolol SUCCINATE 100 MG (TOPROL XL) TAB PO SCH (09:00)
[2020-10-19] MEDS: FENOFIBRATE, MICRO 67 MG (LOFIBRA) CAPSULE PO SCH (09:00)
[2020-10-19] MEDS: TRIAMCINOLONE 0.5% CR (KENALOG) 15 GM TUBE TOP SCH (09:00)
[2020-10-19] MEDS: ASPIRIN 81 MG CHEW (CHILDREN'S ASA) PO SCH (09:00)
[2020-10-19] MEDS: APIXABAN 5 MG (ELIQUIS) TABLET PO SCH (09:00)
--- NOTE | 2020-10-19 12:38 | Progress Note - Cardiology ---
Cardiology SOAP Progress Note Subjective: On BiPAP. Does not respond to questions Objective: I&O/Vital Signs 10/19/20 10/19/20 10/19/20 10/19/20 01:00 03:43 03:59 06:50 Temp 36.4 Pulse 95 117 116 136 Resp 26 23 28 B/P (MAP) 124/63 (83) Pulse Ox 95 94 93 O2 Delivery NIV Bilevel O2 Flow Rate 35.00 35.00 35.00 10/19/20 10/19/20 10/19/20 10/19/20 07:00 07:39 08:00 10:55 Temp 37.0 Pulse 115 143 143 Resp 20 28 B/P (MAP) 156/85 (108) Pulse Ox 93 97 97 O2 Delivery NIV Bilevel NIV Bilevel O2 Flow Rate 35.00 35.00 FiO2 45 10/19/20 00:00 Intake Total 200 ml Output Total 525 ml Balance -325 ml Constitutional: appears stated age, well-developed, well-nourished, other (On BiPAP, somnolent, doesn't answer questions) Respiratory: No accessory muscle use, No respiratory distress; chest expansion is symmetric, chest is bilaterally symmetric, lungs clear to auscultation Cardiovascular: irregularly irregular; No JVD; S1 and S2 Gastrointestional: No tender; soft, round, audible bowel sounds Extremities: no lower extremity edema bilateral Neurologic/Psychiatric: other (left sided facial droop; left sided weakness) Skin: No rash on exposed areas, No ulcerations on exposed areas Results/Procedures: Labs Laboratory Tests 10/18/20 16:06: Glucometer 146H 10/18/20 21:11: Glucometer 118H 10/19/20 05:15: Sodium Level 149H, Potassium Level 4.4, Chloride Level 104, Carbon Dioxide Level 34H, Anion Gap 11, Blood Urea Nitrogen 26H, Creatinine 0.97, Estimat Glomerular Filtration Rate 55, BUN/Creatinine Ratio 27, Glucose Level 118H, Calcium Level 9.3, Magnesium Level 2.2 10/19/20 11:14: Glucometer 112H Microbiology 10/12/20 MRSA Screen - Final, Complete MRSA not isolated Laboratory Tests 10/18/20 05:40 10/19/20 05:15 A/P: Assessment: 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 LA mod dilated. Mild to mod TR. PASP approx 30 mmHg. Grade 1 diastolic dysfunction. Echocardiogram was done on October 13, [address] Parra showing normal LV size, EF 55 to 65%, left atrial dilatation, calcification on the mitral annulus, mild to moderate mitral regurgitation, mild to moderate tricuspid regurgitation, PA pressure 30 mmHg. Continue to monitor Coronary artery disease - history of CABG in 2010: COLES to LAD, vein graft to the right coronary artery and vein graft to the circumflex artery - Suspected non-STEMI in September 2019 at time of hosp with CHF, refused card cath or MPI Hypertension Hyperlipidemia - statin Diabetes mellitus, followed and managed by primary care physician CKD 3-4 Anemia of undetermined etiology, managed by Dr Yung Plan: CVA - management per medical services Remains a-fib/flutter with fairly controlled rate control Continue OAC with Eliquis Monitor lab and replace electrolytes as indicated Seen by Palliative care yesterday - family to make decision later this morning Clinical Quality Measures Type of Care: Type of Care: Comfort Measures YEFRI DORSEY MD FACP FAC CCDS Oct 19, 2020 12:38
--- NOTE | 2020-10-19 12:50 | Progress Note ---
DESMOND LEWIS 10/19/20 1250: Subjective Date Seen by a Provider: Oct 19, 2020 Time Seen by a Provider: 08:00 Subjective/Events-last exam Pt was hypersomnolent and on bipap machine. History and exam not appropriate due to patient condition. was seen to give final rights. Pt planned for hospi ce. Review of Systems General: Other (Unable to obtain due to pt condition) HEENT: Other (Unable to obtain due to pt condition) Pulmonary: Other (Unable to obtain due to pt condition) Cardiovascular: Other (Unable to obtain due to pt condition) Gastrointestinal: Other (Unable to obtain due to pt condition) Genitourinary: Other (Unable to obtain due to pt condition) Musculoskeletal: other (Unable to obtain due to pt condition) Neurological: Other (Unable to obtain due to pt condition) Objective Exam Last Set of Vital Signs Vital Signs Date Time Temp Pulse Resp B/P (MAP) Pulse Ox O2 Delivery O2 Flow Rate FiO2 10/19/20 10:55 143 28 97 35.00 10/19/20 08:00 37.0 156/85 (108) NIV Bilevel 10/19/20 07:39 45 Capillary Refill : Less Than 3 Seconds I&O Intake and Output 10/19/20 00:00 Intake Total 200 ml Output Total 675 ml Balance -475 ml Intake Oral 200 ml Output Urine Total 675 ml # Bowel Movements 5 General: Severe Distress Extremities: No Cyanosis Skin: No Rashes, No Breakdown, No Significant Lesion Results Lab Laboratory Tests 10/18/20 16:06: Glucometer 146H 10/18/20 21:11: Glucometer 118H 10/19/20 05:15: Sodium Level 149H, Potassium Level 4.4, Chloride Level 104, Carbon Dioxide Level 34H, Anion Gap 11, Blood Urea Nitrogen 26H, Creatinine 0.97, Estimat Glomerular Filtration Rate 55, BUN/Creatinine Ratio 27, Glucose Level 118H, Calcium Level 9.3, Magnesium Level 2.2 10/19/20 11:14: Glucometer 112H Microbiology 10/12/20 MRSA Screen - Final, Complete MRSA not isolated Assessment/Plan Assessment/Plan Assess & Plan/Chief Complaint Atrial fibrillation with rapid ventricular response had previous episode of A. 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 History of GI bleed Chronic kidney disease stage II CAD previous CABG Suspect untreated obstructive sleep apnea Noncompliance with medical recommendations 10/17/2020: PT/OT Lortab for current back pain symptoms Acewraps for swelling 10/18/2020: Continue PT/OT Back pain - Resolved LE swelling significantly improved Continue to monitor O2/Respiratory therapy 10/19/2020: Continue supportive care Prepare pt for hospice care Console family - son/daughter TELMA MARTINEZ DO 10/20/20 0520: Subjective Subjective/Events-last exam Pt declining Comfort care protocol initiated Updated [id number] at the bedside since I talked to son yesterday and he s unable to be present during this process Pt appears to be very end-stage Supervisory-Addendum Brief Verification & Attestation Participated in pt care: history, MDM, physical Personally performed: exam, history, MDM, supervision of care Care discussed with: Medical Student Procedures: n/a Results interpretation: Verified all documentation Verification and Attestation of Medical Student E/M Service A medical student performed and documented this service in my presence. I reviewed and verified all information documented by the medical student and made modifications to such information, when appropriate. I personally performed the physical exam and medical decision making. Telma Martinez Oct 20, 2020,05:19 DESMOND LEWIS Oct 19, 2020 12:50 TELMA MARTINEZ DO Oct 20, 2020 05:20
[2020-10-19] MEDS: ACETAMINOPHEN 325 MG TABLET PO PRN (13:42)
--- NOTE | 2020-10-19 14:21 | Occ Therapy Progress Note ---
Therapy Progress Note Pt is now on comfort care. Discharge OT services at this time. DANAE CROW Oct 19, 2020 14:21
[2020-10-20] MEDS: NYSTATIN CREAM (MYCOSTATIN) 30 GM TUBE TP SCH ×3 (09:05→19:54)
--- NOTE | 2020-10-20 13:49 | Progress Note ---
PRICILLA LEWISEN 10/20/20 1349: Subjective Date Seen by a Provider: Oct 20, 2020 Time Seen by a Provider: 09:00 Subjective/Events-last exam Pt seems to be doing better than yesterday and was breathing off bipap machine. History was taken by daughter in law where she reports the pt has had some L shoulder spasms and not eating well. Otherwise denies fever, vomiting, diarrhea, cough, or wheezes. Continue supportive care while awaiting transfer to hospice care. Review of Systems General: No Chills, No Fatigue HEENT: No Head Aches Pulmonary: No Dyspnea, No Cough Genitourinary: No Dysuria, No Incontinence Objective Exam Last Set of Vital Signs Vital Signs Date Time Temp Pulse Resp B/P (MAP) Pulse Ox O2 Delivery O2 Flow Rate FiO2 10/20/20 08:00 93 High Flow N/C 3.00 10/19/20 10:55 143 28 10/19/20 08:00 37.0 156/85 (108) 10/19/20 07:39 45 Capillary Refill : Less Than 3 Seconds I&O Intake and Output 10/20/20 00:00 Intake Total 250 ml Output Total 1125 ml Balance -875 ml Intake Oral 250 ml Output Urine Total 1125 ml # Bowel Movements 1 General: Moderate Distress Extremities: No Cyanosis Skin: No Rashes, No Breakdown, No Significant Lesion Results Lab Laboratory Tests 10/19/20 15:41: Glucometer 159H Microbiology 10/12/20 MRSA Screen - Final, Complete MRSA not isolated Assessment/Plan Assessment/Plan Assess & Plan/Chief Complaint Atrial fibrillation with rapid ventricular response had previous episode of A. 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 History of GI bleed Chronic kidney disease stage II CAD previous CABG Suspect untreated obstructive sleep apnea Noncompliance with medical recommendations 10/17/2020: PT/OT Lortab for current back pain symptoms Acewraps for swelling 10/18/2020: Continue PT/OT Back pain - Resolved LE swelling significantly improved Continue to monitor O2/Respiratory therapy 10/19/2020: Continue supportive care Prepare pt for hospice care Console family - son/daughter 10/20/2020: Continue supportive care Prepare pt for hospice care TELMA MARTINEZ DO 10/21/20 0537: Subjective Subjective/Events-last exam Pt has stabilized Ate a bit and drank some ensure Brother at the bedside Pt appears to be very debilitated Hospice likely will be the option that she needs to go on at [place] Review of Systems General: Fatigue Pulmonary: Dyspnea Neurological: Confusion Objective Exam General: Alert, Oriented X3, Cooperative, No Acute Distress, Other (End-stage) Lungs: Other (Diminished breath sounds) Heart: Other (Tachycardic) Assessment/Plan Assessment/Plan Assess & Plan/Chief Complaint 10/20/2020: Palliative care Supervisory-Addendum Brief Verification & Attestation Participated in pt care: history, MDM, physical Personally performed: exam, history, MDM, supervision of care Care discussed with: Medical Student Procedures: n/a Results interpretation: Verified all documentation Verification and Attestation of Medical Student E/M Service A medical student performed and documented this service in my presence. I reviewed and verified all information documented by the medical student and made modifications to such information, when appropriate. I personally performed the physical exam and medical decision making. Telma Martinez, Oct 21, 2020,05:37 DESMOND LEWIS Oct 20, 2020 13:49 TELMA MARTINEZ DO Oct 21, 2020 05:37
[2020-10-20] MEDS: LORazepam INJ 2 MG/ML (ATIVAN) VIAL IVP PRN ×2 (19:53→22:27)
[2020-10-21] MEDS: LORazepam INJ 2 MG/ML (ATIVAN) VIAL IVP PRN (02:20)
[2020-10-21] MEDS: NYSTATIN CREAM (MYCOSTATIN) 30 GM TUBE TP SCH ×2 (09:56→13:00)
[2020-10-21] MEDS ORDERED: LORA2ORA PO (12:09)
[2020-10-21] MEDS ORDERED: MORP20SO PO (12:09)
--- NOTE | 2020-10-21 12:10 | Discharge Summary ---
Diagnosis/Chief Complaint Date of Admission Oct 13, 2020 at 11:10 Date of Discharge Discharge Date: Oct 21, 2020 Discharge Diagnosis Assessment: End-of-life status enrolled in hospice and discharged home Atrial fibrillation with rapid ventricular response had previous episode of A. 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 History of GI bleed Chronic kidney disease stage II CAD previous CABG Suspect untreated obstructive sleep apnea Noncompliance with medical recommendations Discharge Summary Discharge Physical Examination Allergies: Coded Allergies: Penicillins (Unverified Allergy, Mild, 12/18/08) Vitals & I&Os Vital Signs Date Time Temp Pulse Resp B/P (MAP) Pulse Ox O2 Delivery O2 Flow Rate FiO2 10/21/20 16:40 37.0 143 28 156/85 93 Nasal Cannula 2.00 10/19/20 07:39 45 General Appearance: Other (Somewhat comatose) Hospital Course Was the Problem List Reviewed?: Yes Hospital Course: Pt had a lengthy hospital course. She was admitted for AF with RVR, sustained a right sided stroke with left sided weakness, required biPAP mos t of the time for respiratory failure and ultimately transitioned to end of life hospice care. Pt was deemed stable for DC on hospice, Morphine and Ativan prescribed and pt will be cared for at home. Labs (last 24 hrs) Laboratory Tests 10/12/20 17:30: White Blood Count 5.2, Red Blood Count 5.24H, Hemoglobin 14.5, Hematocrit 47, Mean Corpuscular Volume 90, Mean Corpuscular Hemoglobin 28, Mean Corpuscular Hemoglobin Concent 31L, Red Cell Distribution Width 16.1H, Platelet Count 159, Mean Platelet Volume 9.7, Immature Granulocyte % (Auto) 0, Neutrophils (%) (Auto) 67, Lymphocytes (%) (Auto) 21, Monocytes (%) (Auto) 10, Eosinophils (%) (Auto) 1, Basophils (%) (Auto) 1, Neutrophils # (Auto) 3.5, Lymphocytes # (Auto) 1.1, Monocytes # (Auto) 0.5, Eosinophils # (Auto) 0.1, Basophils # (Auto) 0.0, Immature Granulocyte # (Auto) 0.0, Sodium Level 144, Potassium Level 4.3, Chloride Level 112H, Carbon Dioxide Level 22, Anion Gap 10, Blood Urea Nitrogen 21H, Creatinine 0.99, Estimat Glomerular Filtration Rate 53, BUN/Creatinine Ratio 21, Glucose Level 76, Calcium Level 6.9L, Corrected Calcium 7.7L, Total Bilirubin 0.6, Aspartate Amino Transf (AST/SGOT) 27, Alanine Aminotransferase (ALT/SGPT) 14, Alkaline Phosphatase 37L, Troponin I 0.599*H, Total Protein 5.9L, Albumin 3.0L 10/12/20 20:50: Glucometer 148H 10/13/20 00:20: Troponin I 0.045H 10/13/20 06:12: White Blood Count 4.3, Red Blood Count 4.34, Hemoglobin 12.1, Hematocrit 40, Mean Corpuscular Volume 91, Mean Corpuscular Hemoglobin 28, Mean Corpuscular Hemoglobin Concent 31L, Red Cell Distribution Width 15.9H, Platelet Count 204, Mean Platelet Volume 9.9, Immature Granulocyte % (Auto) 0, Neutrophils (%) (Auto) 57, Lymphocytes (%) (Auto) 25, Monocytes (%) (Auto) 15H, Eosinophils (%) (Auto) 2, Basophils (%) (Auto) 1, Neutrophils # (Auto) 2.4, Lymphocytes # (Auto) 1.1, Monocytes # (Auto) 0.7, Eosinophils # (Auto) 0.1, Basophils # (Auto) 0.0, Immature Granulocyte # (Auto) 0.0, Sodium Level 146H, Potassium Level 3.2L, Chloride Level 105, Carbon Dioxide Level 31, Anion Gap 10, Blood Urea Nitrogen 27H, Creatinine 1.25, Estimat Glomerular Filtration Rate 41, BUN/Creatinine Ratio 22, Glucose Level 85, Calcium Level 8.6, Troponin I 0.041H, Phosphorus Level 4.2, Magnesium Level 2.0, Triglycerides Level 80, Cholesterol Level 88, LDL Cholesterol Direct 37, VLDL Cholesterol 16, HDL Cholesterol 37L 10/13/20 06:14: Glucometer 80 10/13/20 10:43: Glucometer 91 10/13/20 11:48: Blood Gas Puncture Site RIGHT RADIAL, Blood Gas Patient Temperature 36.4, Arterial Blood pH 7.34*L, Arterial Blood Partial Pressure CO2 59H, Arterial Blood Partial Pressure O2 44L, Arterial Blood HCO3 31H, Arterial Blood Total CO2 33.2H, Arterial Blood Oxygen Saturation 73L, Arterial Blood Base Excess 5.6H, Bacilio Test POSITIVE, Blood Gas Ventilator Setting NO, Blood Gas Inspired Oxygen 4 10/13/20 13:40: Blood Gas Puncture Site RIGHT RADIAL, Blood Gas Patient Temperature 36.4, Arterial Blood pH 7.40, Arterial Blood Partial Pressure CO2 53H, Arterial Blood Partial Pressure O2 67L, Arterial Blood HCO3 32H, Arterial Blood Total CO2 33.4H , Arterial Blood Oxygen Saturation 94, Arterial Blood Base Excess 6.8H, Bacilio Test POSITIVE, Blood Gas Ventilator Setting NO, Blood Gas Inspired Oxygen 5 L 10/13/20 15:47: Glucometer 72 10/13/20 20:36: Glucometer 71 10/14/20 03:53: White Blood Count 5.6, Red Blood Count 4.49, Hemoglobin 12.6, Hematocrit 41, Mean Corpuscular Volume 90, Mean Corpuscular Hemoglobin 28, Mean Corpuscular Hemoglobin Concent 31L, Red Cell Distribution Width 15.6H, Platelet Count 196, Mean Platelet Volume 9.2, Immature Granulocyte % (Auto) 0, Neutrophils (%) (Auto) 68, Lymphocytes (%) (Auto) 18, Monocytes (%) (Auto) 11, Eosinophils (%) (Auto) 2, Basophils (%) (Auto) 1, Neutrophils # (Auto) 3.8, Lymphocytes # (Auto) 1.0, Monocytes # (Auto) 0.6, Eosinophils # (Auto) 0.1, Basophils # (Auto) 0.0, Immature Granulocyte # (Auto) 0.0, Sodium Level 147H, Potassium Level 3.5L, Chloride Level 104, Carbon Dioxide Level 29, Anion Gap 14, Blood Urea Nitrogen 21H, Creatinine 1.14, Estimat Glomerular Filtration Rate 45, BUN/Creatinine Ratio 18, Glucose Level 101, Calcium Level 9.0, Corrected Calcium 9.5, Phosphorus Level 3.9, Magnesium Level 1.9, Total Bilirubin 0.8, Aspartate Amino Transf (AST/SGOT) 19, Alanine Aminotransferase (ALT/SGPT) 14, Alkaline Phosphatase 42, Troponin I 0.036H, Total Protein 6.4, Albumin 3.4 10/14/20 10:12: Glucometer 134H 10/14/20 10:17: Blood Gas Puncture Site RT RAD, Blood Gas Patient Temperature 37.4, Arterial Blood pH 7.37, Arterial Blood Partial Pressure CO2 55H, Arterial Blood Partial Pressure O2 104H, Arterial Blood HCO3 31H, Arterial Blood Total CO2 33.1H, Arterial Blood Oxygen Saturation 98, Arterial Blood Base Excess 6.4H, Bacilio Test YES-POS, Blood Gas Ventilator Setting NO, Blood Gas Inspired Oxygen 12 L 10/14/20 15:45: Glucometer 196H 10/14/20 20:47: Glucometer 215H 10/15/20 05:33: Glucometer 160H 10/15/20 06:31: White Blood Count 7.2, Red Blood Count 4.74, Hemoglobin 12.9, Hematocrit 43, Mean Corpuscular Volume 91, Mean Corpuscular Hemoglobin 27, Mean Corpuscular Hemoglobin Concent 30L, Red Cell Distribution Width 15.5H, Platelet Count 188, Mean Platelet Volume 9.4, Immature Granulocyte % (Auto) 0, Neutrophils (%) (Auto) 74, Lymphocytes (%) (Auto) 13, Monocytes (%) (Auto) 12, Eosinophils (%) (Auto) 1, Basophils (%) (Auto) 0, Neutrophils # (Auto) 5.3, Lymphocytes # (Auto) 0.9L, Monocytes # (Auto) 0.9, Eosinophils # (Auto) 0.1, Basophils # (Auto) 0.0, Immature Granulocyte # (Auto) 0.0, Sodium Level 149H, Potassium Level 3.8, Chloride Level 105, Carbon Dioxide Level 33H, Anion Gap 11, Blood Urea Nitrogen 19H, Creatinine 1.07, Estimat Glomerular Filtration Rate 49, BUN/Creatinine Ratio 18, Glucose Level 147H, Calcium Level 9.2, Corrected Calcium 9.6, Total Bilirubin 1.2H, Aspartate Amino Transf (AST/SGOT) 16, Alanine Aminotransferase (ALT/SGPT) 13, Alkaline Phosphatase 42, Total Protein 6.7, Albumin 3.5 10/15/20 11:38: Glucometer 150H 10/15/20 16:36: Glucometer 155H 10/15/20 20:18: Glucometer 119H 10/16/20 04:57: White Blood Count 7.4, Red Blood Count 4.25, Hemoglobin 11.7, Hematocrit 39, Mean Corpuscular Volume 91, Mean Corpuscular Hemoglobin 28, Mean Corpuscular Hemoglobin Concent 30L, Red Cell Distribution Width 15.7H, Platelet Count 184, Mean Platelet Volume 9.7, Immature Granulocyte % (Auto) 0, Neutrophils (%) (Auto) 75, Lymphocytes (%) (Auto) 14, Monocytes (%) (Auto) 11, Eosinophils (%) (Auto) 1, Basophils (%) (Auto) 0, Neutrophils # (Auto) 5.6, Lymphocytes # (Auto) 1.0, Monocytes # (Auto) 0.8, Eosinophils # (Auto) 0.0, Basophils # (Auto) 0.0, Immature Granulocyte # (Auto) 0.0, Sodium Level 149H, Potassium Level 3.4L, Chloride Level 104, Carbon Dioxide Level 35H, Anion Gap 10, Blood Urea Nitrogen 21H, Creatinine 1.09, Estimat Glomerular Filtration Rate 48, BUN/Creatinine Ratio 19, Glucose Level 128H, Calcium Level 8.9, Corrected Calcium 9.7, Total Bilirubin 1.1H, Aspartate Amino Transf (AST/SGOT) 24, Alanine Aminotransferase (ALT/SGPT) 18, Alkaline Phosphatase 36L, Total Protein 6.0L, Albumin 3.0L 10/16/20 06:37: Glucometer 111H 10/16/20 11:23: Glucometer 186H 10/16/20 16:07: Glucometer 156H 10/16/20 20:11: Glucometer 146H 10/17/20 04:52: Glucometer 127H 10/17/20 04:54: White Blood Count 6.8, Red Blood Count 4.05, Hemoglobin 11.2L, Hematocrit 38, Mean Corpuscular Volume 93, Mean Corpuscular Hemoglobin 28, Mean Corpuscular Hemoglobin Concent 30L, Red Cell Distribution Width 15.5H, Platelet Count 191, Mean Platelet Volume 10.3, Sodium Level 150H, Potassium Level 3.5L, Chloride Level 102, Carbon Dioxide Level 37H, Anion Gap 11, Blood Urea Nitrogen 23H, Creatinine 1.16, Estimat Glomerular Filtration Rate 44, BUN/Creatinine Ratio 20, Glucose Level 133H, Calcium Level 9.0, Corrected Calcium 9.9, Magnesium Level 1.9, Total Bilirubin 0.7, Aspartate Amino Transf (AST/SGOT) 18, Alanine Aminotransferase (ALT/SGPT) 16, Alkaline Phosphatase 38L, Total Protein 6.1L, Albumin 2.9L 10/17/20 11:42: Glucometer 161H 10/17/20 15:47: Glucometer 148H 10/17/20 20:14: Glucometer 153H 10/18/20 05:40: White Blood Count 5.7, Red Blood Count 3.89, Hemoglobin 10.6L, Hematocrit 36, Mean Corpuscular Volume 93, Mean Corpuscular Hemoglobin 27, Mean Corpuscular Hemoglobin Concent 29L, Red Cell Distribution Width 15.5H, Platelet Count 173, Mean Platelet Volume 10.4, Immature Granulocyte % (Auto) 0, Neutrophils (%) (Auto) 74, Lymphocytes (%) (Auto) 14, Monocytes (%) (Auto) 11, Eosinophils (%) (Auto) 1, Basophils (%) (Auto) 0, Neutrophils # (Auto) 4.2, Lymphocytes # (Auto) 0.8L, Monocytes # (Auto) 0.6, Eosinophils # (Auto) 0.1, Basophils # (Auto) 0.0, Immature Granulocyte # (Auto) 0.0, Sodium Level 150H, Potassium Level 3.1L, Chloride Level 100, Carbon Dioxide Level 38H, Anion Gap 12, Blood Urea Nitrogen 25H, Creatinine 1.04, Estimat Glomerular Filtration Rate 50, BUN/Creatinine Ratio 24, Glucose Level 134H, Calcium Level 8.8, Corrected Calcium 9.8, Total Bilirubin 0.8, Aspartate Amino Transf (AST/SGOT) 18, Alanine Aminotransferase (ALT/SGPT) 14, Alkaline Phosphatase 39L, Total Protein 5.8L, Albumin 2.8L 10/18/20 10:36: Glucometer 173H 10/18/20 16:06: Glucometer 146H 10/18/20 21:11: Glucometer 118H 10/19/20 05:15: Sodium Level 149H, Potassium Level 4.4, Chloride Level 104, Carbon Dioxide Level 34H, Anion Gap 11, Blood Urea Nitrogen 26H, Creatinine 0.97, Estimat Glomerular Filtration Rate 55, BUN/Creatinine Ratio 27, Glucose Level 118H, Calcium Level 9.3, Magnesium Level 2.2 10/19/20 11:14: Glucometer 112H 10/19/20 15:41: Glucometer 159H Microbiology 10/12/20 MRSA Screen - Final, Complete MRSA not isolated Pending Labs Microbiology Date/Time Source Procedure Growth Status 10/12/20 16:35 Nasal MRSA Screen - Final MRSA not isolated Complete Laboratory Tests 10/12/20 17:30: White Blood Count 5.2, Red Blood Count 5.24, Hemoglobin 14.5, Hematocrit 47, Mean Corpuscular Volume 90, Mean Corpuscular Hemoglobin 28, Mean Corpuscular Hemoglobin Concent 31, Red Cell Distribution Width 16.1, Platelet Count 159, Mean Platelet Volume 9.7, Immature Granulocyte % (Auto) 0, Neutrophils (%) (Auto) 67, Lymphocytes (%) (Auto) 21, Monocytes (%) (Auto) 10, Eosinophils (%) (Auto) 1, Basophils (%) (Auto) 1, Neutrophils # (Auto) 3.5, Lymphocytes # (Auto) 1.1, Monocytes # (Auto) 0.5, Eosinophils # (Auto) 0.1, Basophils # (Auto) 0.0, Immature Granulocyte # (Auto) 0.0, Sodium Level 144, Potassium Level 4.3, Chloride Level 112, Carbon Dioxide Level 22, Anion Gap 10, Blood Urea Nitrogen 21, Creatinine 0.99, Estimat Glomerular Filtration Rate 53, BUN/Creatinine Ratio 21, Glucose Level 76, Calcium Level 6.9, Corrected Calcium 7.7, Total Bilirubin 0.6, Aspartate Amino Transf (AST/SGOT) 27, Alanine Aminotransferase (ALT/SGPT) 14, Alkaline Phosphatase 37, Troponin I 0.599, Total Protein 5.9, Albumin 3.0 10/12/20 20:50: Glucometer 148 10/13/20 00:20: Troponin I 0.045 10/13/20 06:12: White Blood Count 4.3, Red Blood Count 4.34, Hemoglobin 12.1, Hematocrit 40, Mean Corpuscular Volume 91, Mean Corpuscular Hemoglobin 28, Mean Corpuscular Hemoglobin Concent 31, Red Cell Distribution Width 15.9, Platelet Count 204, Mean Platelet Volume 9.9, Immature Granulocyte % (Auto) 0, Neutrophils (%) (Auto) 57, Lymphocytes (%) (Auto) 25, Monocytes (%) (Auto) 15, Eosinophils (%) (Auto) 2, Basophils (%) (Auto) 1, Neutrophils # (Auto) 2.4, Lymphocytes # (Auto) 1.1, Monocytes # (Auto) 0.7, Eosinophils # (Auto) 0.1, Basophils # (Auto) 0.0, Immature Granulocyte # (Auto) 0.0, Sodium Level 146, Potassium Level 3.2, Chloride Level 105, Carbon Dioxide Level 31, Anion Gap 10, Blood Urea Nitrogen 27, Creatinine 1.25, Estimat Glomerular Filtration Rate 41, BUN/Creatinine Ratio 22, Glucose Level 85, Calcium Level 8.6, Troponin I 0.041, Phosphorus Level 4.2, Magnesium Level 2.0, Triglycerides Level 80, Cholesterol Level 88, LDL Cholesterol Direct 37, VLDL Cholesterol 16, HDL Cholesterol 37 10/13/20 06:14: Glucometer 80 10/13/20 10:43: Glucometer 91 10/13/20 11:48: Blood Gas Puncture Site RIGHT RADIAL, Blood Gas Patient Temperature 36.4, Arterial Blood pH 7.34, Arterial Blood Partial Pressure CO2 59, Arterial Blood Partial Pressure O2 44, Arterial Blood HCO3 31, Arterial Blood Total CO2 33.2, Arterial Blood Oxygen Saturation 73, Arterial Blood Base Excess 5.6, Bacilio Test POSITIVE, Blood Gas Ventilator Setting NO, Blood Gas Inspired Oxygen 4 10/13/20 13:40: Blood Gas Puncture Site RIGHT RADIAL, Blood Gas Patient Temperature 36.4, Arterial Blood pH 7.40, Arterial Blood Partial Pressure CO2 53, Arterial Blood Partial Pressure O2 67, Arterial Blood HCO3 32, Arterial Blood Total CO2 33.4, Arterial Blood Oxygen Saturation 94, Arterial Blood Base Excess 6.8, Bacilio Test POSITIVE, Blood Gas Ventilator Setting NO, Blood Gas Inspired Oxygen 5 L 10/13/20 15:47: Glucometer 72 10/13/20 20:36: Glucometer 71 10/14/20 03:53: White Blood Count 5.6, Red Blood Count 4.49, Hemoglobin 12.6, Hematocrit 41, Mean Corpuscular Volume 90, Mean Corpuscular Hemoglobin 28, Mean Corpuscular Hemoglobin Concent 31, Red Cell Distribution Width 15.6, Platelet Count 196, Mean Platelet Volume 9.2, Immature Granulocyte % (Auto) 0, Neutrophils (%) (Auto) 68, Lymphocytes (%) (Auto) 18, Monocytes (%) (Auto) 11, Eosinophils (%) (Auto) 2, Basophils (%) (Auto) 1, Neutrophils # (Auto) 3.8, Lymphocytes # (Auto) 1.0, Monocytes # (Auto) 0.6, Eosinophils # (Auto) 0.1, Basophils # (Auto) 0.0, Immature Granulocyte # (Auto) 0.0, Sodium Level 147, Potassium Level 3.5, Chloride Level 104, Carbon Dioxide Level 29, Anion Gap 14, Blood Urea Nitrogen 21, Creatinine 1.14, Estimat Glomerular Filtration Rate 45, BUN/Creatinine Ratio 18, Glucose Level 101, Calcium Level 9.0, Corrected Calcium 9.5, Phosphorus Level 3.9, Magnesium Level 1.9, Total Bilirubin 0.8, Aspartate Amino Transf (AST/SGOT) 19, Alanine Aminotransferase (ALT/SGPT) 14, Alkaline Phosphatase 42, Troponin I 0.036, Total Protein 6.4, Albumin 3.4 10/14/20 10:12: Glucometer 134 10/14/20 10:17: Blood Gas Puncture Site RT RAD, Blood Gas Patient Temperature 37.4, Arterial Blood pH 7.37, Arterial Blood Partial Pressure CO2 55, Arterial Blood Partial Pressure O2 104, Arterial Blood HCO3 31, Arterial Blood Total CO2 33.1, Arterial Blood Oxygen Saturation 98, Arterial Blood Base Excess 6.4, Bacilio Test YES-POS, Blood Gas Ventilator Setting NO, Blood Gas Inspired Oxygen 12 L 10/14/20 15:45: Glucometer 196 10/14/20 20:47: Glucometer 215 10/15/20 05:33: Glucometer 160 10/15/20 06:31: White Blood Count 7.2, Red Blood Count 4.74, Hemoglobin 12.9, Hematocrit 43, Mean Corpuscular Volume 91, Mean Corpuscular Hemoglobin 27, Mean Corpuscular Hemoglobin Concent 30, Red Cell Distribution Width 15.5, Platelet Count 188, Mean Platelet Volume 9.4, Immature Granulocyte % (Auto) 0, Neutrophils (%) (Auto) 74, Lymphocytes (%) (Auto) 13, Monocytes (%) (Auto) 12, Eosinophils (%) (Auto) 1, Basophils (%) (Auto) 0, Neutrophils # (Auto) 5.3, Lymphocytes # (Auto) 0.9, Monocytes # (Auto) 0.9, Eosinophils # (Auto) 0.1, Basophils # (Auto) 0.0, Immature Granulocyte # (Auto) 0.0, Sodium Level 149, Potassium Level 3.8, Chloride Level 105, Carbon Dioxide Level 33, Anion Gap 11, Blood Urea Nitrogen 19, Creatinine 1.07, Estimat Glomerular Filtration Rate 49, BUN/Creatinine Ratio 18, Glucose Level 147, Calcium Level 9.2, Corrected Calcium 9.6, Total Bilirubin 1.2, Aspartate Amino Transf (AST/SGOT) 16, Alanine Aminotransferase (ALT/SGPT) 13, Alkaline Phosphatase 42, Total Protein 6.7, Albumin 3.5 10/15/20 11:38: Glucometer 150 10/15/20 16:36: Glucometer 155 10/15/20 20:18: Glucometer 119 10/16/20 04:57: White Blood Count 7.4, Red Blood Count 4.25, Hemoglobin 11.7, Hematocrit 39, Mean Corpuscular Volume 91, Mean Corpuscular Hemoglobin 28, Mean Corpuscular Hemoglobin Concent 30, Red Cell Distribution Width 15.7, Platelet Count 184, Mean Platelet Volume 9.7, Immature Granulocyte % (Auto) 0, Neutrophils (%) (Auto) 75, Lymphocytes (%) (Auto) 14, Monocytes (%) (Auto) 11, Eosinophils (%) (Auto) 1, Basophils (%) (Auto) 0, Neutrophils # (Auto) 5.6, Lymphocytes # (Auto) 1.0, Monocytes # (Auto) 0.8, Eosinophils # (Auto) 0.0, Basophils # (Auto) 0.0, Immature Granulocyte # (Auto) 0.0, Sodium Level 149, Potassium Level 3.4, Chloride Level 104, Carbon Dioxide Level 35, Anion Gap 10, Blood Urea Nitrogen 21, Creatinine 1.09, Estimat Glomerular Filtration Rate 48, BUN/Creatinine Ratio 19, Glucose Level 128, Calcium Level 8.9, Corrected Calcium 9.7, Total Bilirubin 1.1, Aspartate Amino Transf (AST/SGOT) 24, Alanine Aminotransferase (ALT/SGPT) 18, Alkaline Phosphatase 36, Total Protein 6.0, Albumin 3.0 10/16/20 06:37: Glucometer 111 10/16/20 11:23: Glucometer 186 10/16/20 16:07: Glucometer 156 10/16/20 20:11: Glucometer 146 10/17/20 04:52: Glucometer 127 10/17/20 04:54: White Blood Count 6.8, Red Blood Count 4.05, Hemoglobin 11.2, Hematocrit 38, Mean Corpuscular Volume 93, Mean Corpuscular Hemoglobin 28, Mean Corpuscular Hemoglobin Concent 30, Red Cell Distribution Width 15.5, Platelet Count 191, Mean Platelet Volume 10.3, Sodium Level 150, Potassium Level 3.5, Chloride Level 102, Carbon Dioxide Level 37, Anion Gap 11, Blood Urea Nitrogen 23, Creatinine 1.16, Estimat Glomerular Filtration Rate 44, BUN/Creatinine Ratio 20, Glucose Level 133, Calcium Level 9.0, Corrected Calcium 9.9, Magnesium Level 1.9, Total Bilirubin 0.7, Aspartate Amino Transf (AST/SGOT) 18, Alanine Aminotransferase (ALT/SGPT) 16, Alkaline Phosphatase 38, Total Protein 6.1, Albumin 2.9 10/17/20 11:42: Glucometer 161 10/17/20 15:47: Glucometer 148 10/17/20 20:14: Glucometer 153 10/18/20 05:40: White Blood Count 5.7, Red Blood Count 3.89, Hemoglobin 10.6, Hematocrit 36, Mean Corpuscular Volume 93, Mean Corpuscular Hemoglobin 27, Mean Corpuscular Hemoglobin Concent 29, Red Cell Distribution Width 15.5, Platelet Count 173, Mean Platelet Volume 10.4, Immature Granulocyte % (Auto) 0, Neutrophils (%) (Auto) 74, Lymphocytes (%) (Auto) 14, Monocytes (%) (Auto) 11, Eosinophils (%) (Auto) 1, Basophils (%) (Auto) 0, Neutrophils # (Auto) 4.2, Lymphocytes # (Auto) 0.8, Monocytes # (Auto) 0.6, Eosinophils # (Auto) 0.1, Basophils # (Auto) 0.0, Immature Granulocyte # (Auto) 0.0, Sodium Level 150, Potassium Level 3.1, Chloride Level 100, Carbon Dioxide Level 38, Anion Gap 12, Blood Urea Nitrogen 25, Creatinine 1.04, Estimat Glomerular Filtration Rate 50, BUN/Creatinine Ratio 24, Glucose Level 134, Calcium Level 8.8, Corrected Calcium 9.8, Total Bilirubin 0.8, Aspartate Amino Transf (AST/SGOT) 18, Alanine Aminotransferase (ALT/SGPT) 14, Alkaline Phosphatase 39, Total Protein 5.8, Albumin 2.8 10/18/20 10:36: Glucometer 173 10/18/20 16:06: Glucometer 146 10/18/20 21:11: Glucometer 118 10/19/20 05:15: Sodium Level 149, Potassium Level 4.4, Chloride Level 104, Carbon Dioxide Level 34, Anion Gap 11, Blood Urea Nitrogen 26, Creatinine 0.97, Estimat Glomerular Filtration Rate 55, BUN/Creatinine Ratio 27, Glucose Level 118, Calcium Level 9.3, Magnesium Level 2.2 10/19/20 11:14: Glucometer 112 10/19/20 15:41: Glucometer 159 Discharge Home Medications: Active Scripts Active Lorazepam Intensol (Lorazepam) 2 Mg/1 Ml Oral.conc 1 Mg PO Q2H PRN Morphine Sulfate 20 Mg/5 Ml Solution 5 Mg PO Q3HR Instructions to patient/family Please see electronic discharge instructions given to patient. Diagnosis/Problems Diagnosis/Problems (1) CVA (cerebral vascular accident) (2) Atrial fibrillation with rapid ventricular response (3) Acute on chronic heart failure Status: Acute (4) Hypertension (5) Hyperlipidemia (6) Respiratory distress (7) Diabetes (8) CAD (coronary artery disease) (9) Type 2 AMI (acute myocardial infarction) (10) Arthritis (11) Hx of CABG KEILA MARTINEZ DO Oct 21, 2020 12:10
[2020-10-21] MEDS: RT-ALBUTEROL/IPRATROPIUM 3 ML (DUONEB) VIAL INH SCH ×2 (15:08→15:09)
--- NOTE | 2020-10-21 16:20 | Progress Note ---
DESMOND LEWIS 10/21/20 1620: Progress Note 85yoWF with PMH of CAD, previous bypass, CHF diastolic type, DM, and HTN presented to the ICU after being admitted to the ER for AFib w/ RVR and was found to be slightly volume overloaded after being on Cardizem drip with good rate control of Afib with Dr. Parra consultation. Due to noncompliance with her anticoag medication, ICU suspected a embolus causing neurological deficits. CT scan without IV contrast showed no hemorrhage. CT angiogram showed M1/M2 thrombus confirming a stroke. Initial NIH stroke scale was 14, but repeat testing scored 7 and therefore TPA not indicated. Neurological signs and weakness were waxing/waning deficits. Despite medical management, her condition continued to decline over the course of her hospital stay and end of life/continued supportive care was initiated. Pt to be discharged home due to family expressing wishes they would rather not send her to long-term as they would not be able to see the pt in her final days due to the quarantine procedure and family reported they will be in contact with palliative care for further management. TELMA MARTINEZ DO 10/22/20 0642: Supervisory-Addendum Brief Verification & Attestation Participated in pt care: history, MDM, physical Personally performed: exam, history, MDM, supervision of care Care discussed with: Medical Student Procedures: n/a Results interpretation: Verified all documentation Verification and Attestation of Medical Student E/M Service A medical student performed and documented this service in my presence. I reviewed and verified all information documented by the medical student and made modifications to such information, when appropriate. I personally performed the physical exam and medical decision making. Telma Martinez Oct 22, 2020,06:42 DESMOND LEWIS Oct 21, 2020 16:20 TELMA MARTINEZ DO Oct 22, 2020 06:42
[2020-10-21 16:40] VITALS: BP 156/85
== END 2020-10-21 16:40 | disposition hospice, home (50) | DRG 64 ==
LOC: EDUNIT# 17:21 → ER 17:22 → ICU 18:10 → OBSVTOIN 10-13 11:10 → 4TH 10-14 20:38
PROVIDERS: ADMIT Internal Medicine; ATTEND Internal Medicine
PROC: 5A09457 Assistance with Respiratory Ventilation, 24-96 Consecutive Hours, Continuous Positive Airway Pressure (ICD-10-PCS; principal; 2020-10-16)
DX: I63.9 Cerebral infarction, unspecified (principal); I50.33 Acute on chronic diastolic (congestive) heart failure; I21.A1 Myocardial infarction type 2; J96.00 Acute respiratory failure, unspecified whether with hypoxia or hypercapnia; I42.9 Cardiomyopathy, unspecified; I13.0 Hypertensive heart and chronic kidney disease with heart failure and stage 1 through stage 4 chronic kidney disease, or unspecified chronic kidney disease; I23.6 Thrombosis of atrium, auricular appendage, and ventricle as current complications following acute myocardial infarction; N18.4 Chronic kidney disease, stage 4 (severe); G81.94 Hemiplegia, unspecified affecting left nondominant side; J45.909 Unspecified asthma, uncomplicated; I48.91 Unspecified atrial fibrillation; I25.10 Atherosclerotic heart disease of native coronary artery without angina pectoris; E78.00 Pure hypercholesterolemia, unspecified; M19.90 Unspecified osteoarthritis, unspecified site; R29.714 NIHSS score 14; E87.70 Fluid overload, unspecified; I89.0 Lymphedema, not elsewhere classified; I87.2 Venous insufficiency (chronic) (peripheral); N18.2 Chronic kidney disease, stage 2 (mild); G47.33 Obstructive sleep apnea (adult) (pediatric); E11.22 Type 2 diabetes mellitus with diabetic chronic kidney disease; I27.20 Pulmonary hypertension, unspecified; D64.9 Anemia, unspecified; Z51.5 Encounter for palliative care; R47.81 Slurred speech; M54.9 Dorsalgia, unspecified; Z79.82 Long term (current) use of aspirin; Z79.899 Other long term (current) drug therapy; Z95.1 Presence of aortocoronary bypass graft; Z91.15 Patient's noncompliance with renal dialysis
CPT/HCPCS: 36415; 36600; 70450; 70496; 70498; 71045; 80048; 80053; 80061; 82805; 82947; 83735; 84100; 84484; 85025; 85027; 87081; 93005; 93306; 94640; 94660; 96365; 96372; G0378